=== PATIENT | male | born 1975 | race Hispanic/Latino ===

== ENCOUNTER 2024-07-26 21:06 | Inpatient (IN) | payer MEDICARE, OTHER ==
[~2024-07-26] VITALS: Ht 180.3 cm; Wt 112.0 kg
[~2024-07-26 21:06] MED LIST: ALOG6.252 PO; ASPI-1197 PO; ATOR40TA69 PO; BENZ-226 PO; CANA300T PO; CLOP-31 PO; DOCU100P MC; FAMO20TA8 PO; GABA-529 PO; LISI20TA24 PO; METF100P3 MC; SENN8.6T32 PO; SITA1TAB6 PO
--- NOTE | 2024-07-26 23:03 | NUR ---
PATIENT PLACED IN PRIVATE ROOM FOR SCROTAL EXAM. NYLA LYONS AT BEDSIDE
[2024-07-26 23:13] LABS: BASOPHILS # (AUTO) 0.06 K/uL (0.00-0.20); BASOPHILS % (AUTO) 0.4 % (0.0-5.0); EOSINOPHILS # (AUTO) 0.09 K/uL (0.00-0.70); EOSINOPHILS % (AUTO) 0.5 % (0.0-8.0); HEMATOCRIT 32.2 % (42-54); IMMATURE GRANULOCYTE ABSOLUTE 0.11 K/uL (0-1); LYMPHOCYTES # (AUTO) 1.3 K/uL (1.0-4.8); LYMPHOCYTES % (AUTO) 7.9 % (21.0-51.0); MEAN CORPUSCULAR HGB CONC 32.9 g/dL (32.0-36.0); MONOCYTES # (AUTO) 0.9 K/uL (0.1-1.0); MONOCYTES % (AUTO) 5.5 % (3.0-13.0); NEUTROPHILS # (AUTO) 14.1 K/uL (1.8-7.7); PLATELET COUNT (AUTO) 663 K/uL (130-400); RED BLOOD CELL COUNT(AUTO) 4.41 MIL/uL (4.50-6.20); RED CELL DISTRIBUTION WIDTH 14.5 % (11.0-15.5); WHITE BLOOD COUNT (AUTO) 16.6 K/uL (4.8-10.8)
--- NOTE | 2024-07-26 23:22 | NUR ---
PATIENT ASKED WHAT MEDICATION HE HAS GOTTEN FOR PAIN IN THE PAST SINCE HE IS ALLERGIC TO MORPHINE, PATIENT REPLIED DILAUDID, WHEN ASKED WHAT REACTION HE GET TO THE MORPHINE HE REPLIED "IT MAKES MY HEAD ALL SPINNY", PATIENT ASKED IF HE GET A REACTION WITH DIALUDID AND HE SAID NO.
[2024-07-26] MEDS: ondanSETRON 4MG INJ IVP ONE (23:32)
[2024-07-26] MEDS: hydroMORPHone 1 MG INJ IVP ONE (23:32)
[2024-07-26 23:43] LABS: CREATININE 2.4 mg/dL (0.5-1.3); POTASSIUM 3.8 mmol/L (3.5-5.1)
[2024-07-27] VITALS (7 sets, daily range): BP systolic 112–133; BP diastolic 68–70; PULSE 88–102; RESP 18–19; TEMP 98.8–99.1; O2SAT 95–99
[2024-07-27] MEDS ORDERED: VANCOMYCIN PROTOCOL PER PHARMACY IV SCH
[2024-07-27] MEDS: ZOSYN 3.375GM +NS 50ML IV ONE (00:17)
[2024-07-27 00:19] LABS: ABG BASE EXCESS -8.9 mmol/L (-2.0-3.0); ABG HCO3 15.4 mmol/L (21.0-28.0); ABG OXYGEN SATURATION 95.6 % (94.0-98.0); ABG PCO2 30 mmHg (35-48); ABG PH 7.335 (7.350-7.450); DEVICE COMMENT RR RN; PO2, ARTERIAL BG 82.2 mmHg (83.0-108.0); VENT MODE, BG RA (ROOM AIR)
--- NOTE | 2024-07-27 00:24 | ERN ---
General Chief Complaint: Testicular Injury/Pain Stated Complaint: TESTICULAR PAIN Time Seen by MD: 21:09 Time Seen by Midlevel: 21:09 Source: patient History of Present Illness Initial Comments Patient is a 41-year-old morbidly obese male with a past medical history of type 2 diabetes, hyperlipidemia, coronary artery disease, and hypertension presenting to the emergency department with scrotal swelling and pain. Denies any other symptoms. Allergies: Coded Allergies: morphine (Unverified Allergy, Intermediate, HALLUCINATIONS, 02/13/23) Home Meds Reported Medications Metformin HCl (Metformin HCl) 100 % Powder, 500 GM MC BIDMEALS, APPL 02/01/23 Famotidine (Famotidine) 20 Mg Tablet, 20 MG PO BIDAC, TAB 02/01/23 Aspirin (Aspirin) 81 Mg Tab.chew, 81 MG PO AM, TAB.CHEW 02/01/23 Alogliptin Benzoate (Alogliptin) 6.25 Mg Tablet, 6.25 MG PO AM, TAB 02/01/23 Docusate Sodium (Docusate Sodium) 100 Gm Powder, 100 GM MC BID, APPL 02/01/23 Sennosides (Senna) 8.6 Mg Tablet, 8.6 MG PO QID, TAB 02/01/23 Benzonatate (Benzonatate) 100 Mg Capsule, 100 MG PO TID PRN for COUGH, CAP 02/01/23 Lisinopril (Lisinopril) 20 Mg Tablet, 20 MG PO AM, TAB 12/29/22 Clopidogrel Bisulfate (Plavix) 75 Mg Tablet, 75 MG PO DAILY, TAB 12/29/22 Sitagliptin Phos/Metformin HCl (Janumet 50-1,000 mg Tablet) 50 Mg-1,000 Mg Tablet, 1 EACH PO BID, TAB 12/29/22 Atorvastatin Calcium (LIPITOR) 40 Mg Tablet, 40 MG PO HS, TAB 12/29/22 Gabapentin (Gabapentin) 100 Mg Capsule, 100 MG PO BID, CAP 12/29/22 Canagliflozin (Invokana) 300 Mg Tablet, 300 MG PO DAILY, TAB 12/29/22 Past Medical History Past Medical History: Diabetes-Type II, High Cholesterol, Heart Disease, Hypertension Medical History Other: PAD, SORE ON FOOT, Past Surgical History: Cholecystectomy, Unknown Surgical History Other: STENTS HEART AND LEG. LBKA, AMPUTATION OF TOES ON RIGHT FOOT Social History Social History: Negative, Lives in Retirement ROS Dictation CONSTITUTIONAL: Negative except for HPI HEAD/FACE: Negative except for HPI EENT: Negative except for HPI RESPIRATORY: Negative except for HPI GASTROINTESTINAL/ABDOMINAL: Negative except for HPI GENITOURINARY: Negative except for HPI MUSCULOSKELETAL: Negative except for HPI INTEGUMENTARY: Negative except for HPI NEUROLOGICAL/PSYCH: Negative except for HPI HEMATOLOGIC/LYMPHATIC: Negative except for HPI All Systems Negative, Except as noted above. 13 point review of systems assessed and all negative except for above. Physical Exam Physical Exam Dictation Vital Signs reviewed General Appearance: Alert, oriented x 3, no acute distress, well developed, n ourished. Head and Face: non-traumatic. Eyes: PERRL, pink conjunctivas, eyelid no trauma, anterior chamber with arcus senilis. Ears: Pinnas intact and no signs of trauma or erythema ear canals clear and no discharge TM no erythema Nose: No discharge, no bleeding. Oropharynx: Mouth normal, tongue pink, pharynx clear,no erythema, tonsils no exudates, no abscesses noted, mucous membrane moist Neck: Supple, non-tender, no thyromegaly, no masses, no JVD, no bruits Breast:Deferred Chest:No tenderness, no crepitus, no paradoxical movement, no retractions Lungs:Clear, well-ventilated, symmetric, no rales, no wheezing, no rhonchi, no stridor, good breath sounds bilaterally Heart: Regular rate, regular rhythm, no murmur, no gallops Vascular: no peripheral edema, Abdomen: Soft, positive bowel sounds, nondistended, no guarding, nontender, no rebound, no masses no hepatomegaly, no splenomegaly, no Bell's sign, no hernias. Rectal: Deferred Genital: Scrotal examination performed with RN at bedside. There is cellulitis to bilateral scrotum area. Neurological: Normal speech, motor function intact, sensory function intact Musculoskeletal: Neck nontender, full range of motion, back nontender, full range of motion, Extremities: nontender, full range of motion Skin: Color pink, dry, no turgor, no rash, no lacerations, no abrasions, no contusions. Lymphatic: Deferred Results Laboratory and Microbiology Lab and Micro Result Laboratory Tests Test 07/26/24 23:02 07/26/24 23:19 07/27/24 00:18 White Blood Count 16.6 K/uL (4.8-10.8) H Red Blood Count 4.41 MIL/uL (4.50-6.20) L Hemoglobin 10.6 g/dL (14.0-18.0) L Hematocrit 32.2 % (42-54) L Mean Corpuscular Volume 73.0 fL (79-99) L Mean Corpuscular Hemoglobin 24.0 pg (27.0-33.0) L Mean Corpuscular Hemoglobin Concent 32.9 g/dL (32.0-36.0) Red Cell Distribution Width 14.5 % (11.0-15.5) Platelet Count 663 K/uL (130-400) H Mean Platelet Volume 9.5 fL (7.5-10.5) Immature Granulocyte % (Auto) 0.7 % (0-1) Neutrophils (%) (Auto) 85.0 % (40.0-77.0) H Lymphocytes (%) (Auto) 7.9 % (21.0-51.0) L Monocytes (%) (Auto) 5.5 % (3.0-13.0) Eosinophils (%) (Auto) 0.5 % (0.0-8.0) Basophils (%) (Auto) 0.4 % (0.0-5.0) Neutrophils # (Auto) 14.1 K/uL (1.8-7.7) H Lymphocytes # (Auto) 1.3 K/uL (1.0-4.8) Monocytes # (Auto) 0.9 K/uL (0.1-1.0) Eosinophils # (Auto) 0.09 K/uL (0.00-0.70) Basophils # (Auto) 0.06 K/uL (0.00-0.20) Absolute Immature Granulocyte (auto 0.11 K/uL (0-1) Nucleated Red Blood Cells 0.0 % (0.0-0.19) White Cell Morphology Comment See comments Red Blood Cell Morphology See comments Sodium Level 128 mmol/L (136-145) L Potassium Level 3.8 mmol/L (3.5-5.1) Chloride Level 96 mmol/L (101-111) L Carbon Dioxide Level 20 mmol/L (21-32) L Blood Urea Nitrogen 49 mg/dL (7-18) H Creatinine 2.4 mg/dL (0.5-1.3) H Glomerular Filtration Rate Calc 32 mL/min (>90) Random Glucose 395 mg/dL (70-105) H Lactic Acid Level 1.9 mmol/L (0.8-2.5) Total Calcium 8.9 mg/dL (8.5-10.1) Procalcitonin 0.50 ng/mL (0.05-0.5) Blood Gas Specimen Type Arterial Arterial Blood pH 7.335 (7.350-7.450) Arterial Blood Partial Pressure CO2 30 mmHg (35-48) L Arterial Blood Partial Pressure O2 82.2 mmHg (83.0-108.0) L Arterial Blood HCO3 15.4 mmol/L (21.0-28.0) L Arterial Blood Oxygen Saturation 95.6 % (94.0-98.0) Arterial Blood Base Excess -8.9 mmol/L (-2.0-3.0) L Blood Gas Temperature 37.0 CELSIUS (35.5-37.0) Blood Gas Vent Mode RA (ROOM AIR) FiO2 31.0 % Blood Gas Specimen Comment RR RN Labs Reviewed?: Yes MDM MDM: Differential diagnosis: Cellulitis, abscess, urinary tract infection, Rationale: Tests considered and ordered secondary to shared decision making include: Previous outside records reviewed: Old ER visits. Risk of complication and/or morbidity or mortality of patient management: None Medications-Per medication reconciliation Need for hospitalization: Patient does meet criteria for hospitalization. Need for emergency major/minor surgery: No There are no social concerns with this patient. Prescription drug management Prescriptions will include symptomatic care Patient's prior external medical records from other ER visits were reviewed by me as indicated. Prior testing and results from previous visits were reviewed. Prior tests were taken into account with medical decision making and resource utilization, independent historian/historians were used to obtain complete medical history. I independently interpreted the test that were performed, results were reviewed by me and considered findings on radiology if ordered. Medical management and examination interpretation discussions were had by me with other qualified healthcare professionals as indicated for the patient's care. ED Course Orders Procedure Category Date Status Time Urinalysis Profile LAB 07/26/24 Logged 21:09 Cbc With Differential LAB 07/26/24 Complete 22:44 Basic Metabolic Panel LAB 07/26/24 Complete 22:44 *Nursing CPOE 07/26/24 Transmitted Communication: 22:44 Lactic Acid LAB 07/26/24 Complete 23:06 Blood Cult RONY 07/26/24 In Process 23:06 Hydromorphone 1 Mg PHA 07/26/24 Complete Inj (Dilaudid 1mg Inj 23:30 Procalcitonin LAB 07/26/24 Complete 23:06 Ondansetron 4mg Inj PHA 07/26/24 Complete (Zofran 4mg Inj) 23:30 Vancomycin Protocol PHA 07/27/24 In Process (Vancomycin Protocol 00:00 Zosyn 3.375gm+Ns 50ml PHA 07/27/24 Complete (Zosyn 3.375gm+Ns 00:00 0.9%Nacl 1000ml (Ns PHA 07/27/24 In Process 1000ml) 00:30 Arterial Blood Gas RT 07/27/24 Transmitted 00:02 Insulin Regular, PHA 07/27/24 Complete Human 3ml (Humulin R 00:30 Vancomycin 2gm/500 Ml PHA 07/27/24 In Process Bag (Vancomycin 2g 01:00 Vancomycin 1.25 PHA 07/28/24 In Process Gm/250 Ml Bag 01:00 Vancomycin Trough LAB 07/30/24 Verified 00:01 Arterial Blood Gas LAB 07/27/24 Complete 00:18 Current Medications Medications (Trade) Dose Ordered Sig/Gaby Route PRN Reason Start Time Stop Time Status Last Admin Dose Admin Hydromorphone HCl (DiLAUDid 1MG INJ) 1 mg ONCE ONCE IVP 07/26/24 23:30 07/26/24 23:31 DC 07/26/24 23:32 Insulin Human Regular (humuLIN R 100 UNIT/ML 3ML) 5 unit ONCE ONCE IV 07/27/24 00:30 07/27/24 00:31 DC 07/27/24 01:00 Ondansetron HCl (zoFRAN 4MG INJ) 4 mg ONCE ONCE IVP 07/26/24 23:30 07/26/24 23:31 DC 07/26/24 23:32 Piperacillin Sod/ Tazobactam Sod (Zosyn 3.375gm+NS 50ml) 3.375 gm ONCE ONCE IV 07/27/24 00:00 07/27/24 00:04 DC 07/27/24 00:17 Sodium Chloride 2,259 ml @ 753 mls/hr ONCE ONCE IV 07/27/24 00:30 07/27/24 03:29 07/27/24 00:58 Vancomycin HCl 250 ml @ 125 mls/hr Q24H IV 07/28/24 01:00 08/07/24 00:59 Vancomycin HCl 500 ml @ 250 mls/hr ONCE ONCE IV 07/27/24 01:00 07/27/24 02:59 07/27/24 00:56 Vancomycin HCl (Vancomycin Protocol) 1 each AD IV 07/27/24 00:00 08/10/24 00:00 Vital Signs Date Time Temp Pulse Resp B/P (MAP) Pulse Ox O2 Delivery O2 Flow Rate FiO2 07/26/24 21:07 84 16 148/50 97 Room Air 0 DX & DISP Disposition: Inpatient Decision to Admit Date: Jul 27, 2024 Departure Impression: Primary Impression: Cellulitis of scrotum Additional Impression: GEOVANNI (acute kidney injury) Condition: Stable Referrals: TORITO DAVIS MD (PCP) I have reviewed the case, and I agree with, Diagnosis and Plan I performed the substantive portion of the visit. I have reviewed and personally made and approve the management plan that is documented in the note by myself or the MARLEY. I acknowledge for responsibility for the patient's management plan. NYLA MORALES Jul 27, 2024 00:24
[2024-07-27] MEDS: VANCOMYCIN 2GM/500 ML BAG 500 ML IV ONE (00:56)
[2024-07-27] MEDS: 0.9%NACL 1000ML 2,259 ML IV ONE (00:58)
[2024-07-27] MEDS: INSULIN humuLIN R 100 UNIT/ML 3ML IV ONE (01:00)
[2024-07-27] MEDS ORDERED: acetaMINOPHEN 325 MG TAB PO PRN (02:30)
[2024-07-27] MEDS ORDERED: ondanSETRON 4MG INJ IV PRN (02:30)
[2024-07-27] MEDS ORDERED: VANCOMYCIN 1G/250ML KIT 250 ML IV SCH (02:30)
--- NOTE | 2024-07-27 02:30 | HP ---
[facility] Date of Service: Jul 27, 2024 Time of Service: 02:30 PCP: Alexandro Connelly HISTORY OF PRESENT ILLNESS: This is a 49 year old male with right eye blindness and left eye blurry vision with past medical history of hyperlipidemia, diabetes, hypertension, GERD, peripheral arterial disease with left AKA and right leg stents x4 , morbid obesity and coronary artery disease with cardiac stent times 3 who presents to the ED via ambulance for complaints of testicular pain and swelling which start ed for about two weeks now.Pain is mostly on his right testicle. Patient reports he is unable to sit down due to severity of the pain. Patient states he has this similar problem in the past and had to be confined in the hospital as well.Patient states he had a consulted his PCP via Telehealth and was advised to come to the ED for evaluation. Patient denies history of kidney disease. Patient states he he is not aware of any kidney problem. Seen and examined patient ER awake alert and coherent. Patient continued to complain of pain on the testicular area. Patient states he had fever and headache yesterday but none today. Patient denies chest pain, cough, palpitation, shortness of breaths and abdominal pain . Latest vital signs heart rate 84, blood pressure 148/50 saturation 97% on room air there was no temperature reflected on no vital signs. Labs: WBC 16.6 with negative left shift of neutrophils 85, hemoglobin 10.6, hematocrit 32.2 platelet count 663. Sodium 128, potassium 3.8, chloride 96, CO2 20, BUN 49, creatinine 2.4, GFR 32, random glucose 395, lactic acid 1.9, procalcitonin 0.50. While in the ER patient received Dilaudid 1 mg IV, Zofran 4 mg IV, Zosyn IV 5 units insulin IV and vancomycin IV. We will admit patient for further medical management. REVIEW OF SYSTEMS CONSTITUTIONAL: Denies fevers, chills, or night sweats. No unintentional weight loss reported. NEUROLOGICAL: Denies headache, amaurosis fugax, motor weakness, sensory deficit, vertigo/spinning sensation, gait abnormalities, or tremors. 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 CARDIOVASCULAR: Denies any exertional angina, dyspnea on exertion, orthopnea, paroxysmal nocturnal dyspnea, palpitations, life-threatening arrhythmias, claudication. PULMONARY: Denies any shortness of breath, cough, phlegm/sputum, hemoptysis, pleuritic chest pain. SLEEP: Denies morning headaches, daytime somnolence or napping. Denies difficulty falling asleep, staying asleep, waking from sleep. Denies knowledge of snoring. GASTROINTESTINAL: Denies any type of dysphagia to either liquids or solids. Denies nausea, vomiting, pyrosis, early satiety, abdominal pain, diarrhea, constipation, or changes in stool consistency or caliber. Denies coffee-ground emesis, hematemesis, hematochezia, or melanotic stools. GENITOURINARY: Denies frequency, urgency, nocturia, hematuria or incontinence (Storage/Irritative symptoms.) Low urinary stream, straining to void, urinary intermittency or hesitancy, splitting of the voiding stream, terminal dribbling. ENDOCRINOLOGIC: Denies polyuria, polydipsia, polyphagia or heat/cold intolerances. HEMATOLOGIC: Denies thrombophilia/previous clots, or coagulopathy/bleeding disorders. ONCOLOGIC: Denies personal history of malignancy. DERMATOLOGIC: Denies rashes or pruritus. PSYCHIATRIC: Denies any suicidal or homicidal ideation. Denies hallucinations. 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 Patient denies alcohol tobacco and recreational drug use . Patient states he used to smoke cigarette for 17 years two packs per day and quit two years ago] FAMILY HISTORY: [ Hypertension, diabetes, Chronic obstructive pulmonary disease, cardiovascular disease and cancer ] Coded Allergies: morphine (Unverified Allergy, Intermediate, HALLUCINATIONS, 02/13/23) PHYSICAL EXAM GENERAL APPEARANCE: The patient is awake, alert, and oriented, in no acute cardiopulmonary distress. NEUROLOGICAL: Cranial nerves II-XII grossly intact. Motor is 5/5 in bilateral upper and lower extremities proximal to distal. No sensory deficits. HEENT: Face is symmetric. Pupils are equal and reactive. Extraocular movements are intact. NECK: Supple. No JVD. No thyromegaly. No submental, submandibular, pre- /postauricular, occipital or supraclavicular lymphadenopathy. CHEST: Normal chest expansion. No Telemetry. LUNGS: Absence of any rales, rhonchi or any wheezing. CARDIOVASCULAR: Regular. S1 and S2 normal. No appreciable rubs, murmurs or gallops. ABDOMEN: Soft, nontender, and nondistended. There is no rebound, voluntary guarding, or rigidity. : Deferred. No Thomas. EXTREMITIES: Non-edematous and not cyanotic. No clubbing. Good capillary refill. SKIN: Swollen testicles Vital Sign (Last 24 Hours) 07/26/24 21:07 Pulse 84 Resp 16 B/P (MAP) 148/50 Pulse Ox 97 O2 Delivery Room Air O2 Flow Rate 0 LABS: Laboratory: Test 07/27/24 00:18 07/26/24 23:19 07/26/24 23:02 Range/Units Blood Gas Specimen Type Arterial Arterial Blood pH 7.335 L 7.350-7.450 Arterial Blood Partial Pressure CO2 30 L 35-48 mmHg Arterial Blood Partial Pressure O2 82.2 L 83.0-108.0 mmHg Arterial Blood HCO3 15.4 L 21.0-28.0 mmol/L Arterial Blood Oxygen Saturation 95.6 94.0-98.0 % Arterial Blood Base Excess -8.9 L -2.0-3.0 mmol/L Blood Gas Temperature 37.0 35.5-37.0 CELSIUS Blood Gas Vent Mode RA ROOM AIR FiO2 31.0 % Blood Gas Specimen Comment RR RN Sodium Level 128 L 136-145 mmol/L Potassium Level 3.8 3.5-5.1 mmol/L Chloride Level 96 L 101-111 mmol/L Carbon Dioxide Level 20 L 21-32 mmol/L Blood Urea Nitrogen 49 H 7-18 mg/dL Creatinine 2.4 H 0.5-1.3 mg/dL Glomerular Filtration Rate Calc 32 >90 mL/min Random Glucose 395 H 70-105 mg/dL Lactic Acid Level 1.9 0.8-2.5 mmol/L Total Calcium 8.9 8.5-10.1 mg/dL Procalcitonin 0.50 0.05-0.5 ng/mL White Blood Count 16.6 H 4.8-10.8 K/uL Red Blood Count 4.41 L 4.50-6.20 MIL/uL Hemoglobin 10.6 L 14.0-18.0 g/dL Hematocrit 32.2 L 42-54 % Mean Corpuscular Volume 73.0 L 79-99 fL Mean Corpuscular Hemoglobin 24.0 L 27.0-33.0 pg Mean Corpuscular Hemoglobin Concent 32.9 32.0-36.0 g/dL Red Cell Distribution Width 14.5 11.0-15.5 % Platelet Count 663 H 130-400 K/uL Mean Platelet Volume 9.5 7.5-10.5 fL Immature Granulocyte % (Auto) 0.7 0-1 % Neutrophils (%) (Auto) 85.0 H 40.0-77.0 % Lymphocytes (%) (Auto) 7.9 L 21.0-51.0 % Monocytes (%) (Auto) 5.5 3.0-13.0 % Eosinophils (%) (Auto) 0.5 0.0-8.0 % Basophils (%) (Auto) 0.4 0.0-5.0 % Neutrophils # (Auto) 14.1 H 1.8-7.7 K/uL Lymphocytes # (Auto) 1.3 1.0-4.8 K/uL Monocytes # (Auto) 0.9 0.1-1.0 K/uL Eosinophils # (Auto) 0.09 0.00-0.70 K/uL Basophils # (Auto) 0.06 0.00-0.20 K/uL Absolute Immature Granulocyte (auto 0.11 0-1 K/uL Nucleated Red Blood Cells 0.0 0.0-0.19 % White Cell Morphology Comment See comments Red Blood Cell Morphology See comments Current Medications Medications (Trade) Dose Ordered Sig/Gaby Route PRN Reason Start Time Stop Time Status Last Admin Dose Admin Vancomycin HCl 250 ml @ 125 mls/hr Q24H IV 07/28/24 01:00 08/07/24 00:59 Vancomycin HCl (Vancomycin Protocol) 1 each AD IV 07/27/24 00:00 08/10/24 00:00 DIAGNOSTICS / RADIOLOGY: [ ] ASSESSMENT: Right testicular cellulitis POA Acute kidney injury with CKD POA Hypertension POA Acute leukocytosis POA Anemia due to CKD POA Acute thrombocytosis POA Uncontrolled diabetes POA Hyperlipidemia POA Morbid Obesity POA Coronary artery disease POA Left AKA POA PLAN: We will admit patient in medical surgical We will start on consistent carb diet We will start with NS at 100 mL/hour x2 bags and re-evaluate We will start on vancomycin IV and Zosyn IV for broad-spectrum coverage We will start on Famotidine 20 mg p.o. q.48h for GI prophylaxis We will start on insulin sliding scale AC & HS with hypoglycemia protocol We will add prn medication for fever,pain,cough,nausea and vomiting We will reconcile home meds once medlist available We will obtain ultrasound of the scrotum We will seek Infectious Disease consultation We will seek Nephrology consultation We will request labs in am Further orders to follow depending on above results Case discussed with attending physician and came up with above treatment and plan of care. ADVANCED CARE PLANNING 1. Which of the following were discussed? Hospice Care - No Therapeutic options - Yes Advance Directives - No Other discussions - 2. Discussed with who? Patient 3. Voluntary nature of this service was explained to the patient? Yes 4. Amount of time spent - _22 5. Reviewed by Physician? (if this service was performed by NPP) Yes Patient seen and examined by me. Agree with note by TEST CARRIER SEE ADDITIONAL ORDERS PER CHART DISCUSSED WITH NURSING STAFF JACQUELYN GIBBS Jul 27, 2024 02:30
[2024-07-27] MEDS ORDERED: PoTASSium chloRIDE 10MEQ/100ML 100 ML IV PRN (04:00)
[2024-07-27] MEDS ORDERED: DEXTROSE 50%-WATER 50 ML DISP.SYRIN IV PRN (04:00)
[2024-07-27] MEDS ORDERED: GLUCAGON 1MG KIT 1 MG ML IM PRN (04:00)
[2024-07-27] MEDS ORDERED: PoTASSium chl 10% ELIXIR 20MEQ 20 MEQ/15 ML UDCUP PO PRN (04:00)
[2024-07-27 04:18] LABS: APPEARANCE,URINE TURBID (CLEAR); BILIRUBIN,URINE NEGATIVE (NEGATIVE); GLUCOSE, URINE (UA) 500 mg/dL (NEGATIVE); KETONES,URINE NEGATIVE (NEGATIVE); LEUKOCYTE ESTERASE ,URINE 500 Leu/uL (NEGATIVE); NITRATE,URINE NEGATIVE (NEGATIVE); OCCULT BLOOD,URINE LARGE (NEGATIVE); PROTEIN,URINE 300 mg/dL (NEGATIVE); UROBILINOGEN,URINE 0.2 mg/dL (0.2-1.0)
[2024-07-27 04:20] LABS: ADD UA MICROSCOPIC YES; COLOR,URINE YELLOW (YELLOW)
[2024-07-27] MEDS: FAMOTIDINE 20MG TAB PO SCH (04:20)
[2024-07-27] MEDS: HYDROcodone/APAP 5/325 1 TAB TABLET PO PRN (04:21)
--- NOTE | 2024-07-27 04:21 | NUR ---
JACQUELYN GIBBS LIMOUSINE RENTAL CLERK NOTIFIED OF VITAL SIGNS
[2024-07-27 04:35] LABS: RBC,URINE 26-50 /HPF (0-1); WBC CLUMP MOD /HPF (0-1); WBC,URINE TNTC /HPF (0-1); YEAST,URINE BUDDING MANY /HPF (None Seen); YEAST,URINE HYPHAE MOD /HPF (None Seen)
[2024-07-27] MEDS: 0.9%NACL 1000ML 1,000 ML IV SCH (04:35)
--- NOTE | 2024-07-27 04:35 | NUR ---
REPORT GIVEN TO EL
[2024-07-27] MEDS: ZOSYN 3.375GM+NS 50ML 50 ML IV SCH (05:22)
[2024-07-27 05:42] LABS: BASOPHILS # (AUTO) 0.05 K/uL (0.00-0.20); BASOPHILS % (AUTO) 0.3 % (0.0-5.0); EOSINOPHILS # (AUTO) 0.15 K/uL (0.00-0.70); HEMATOCRIT 28.9 % (42-54); IMMATURE GRANULOCYTE ABSOLUTE 0.12 K/uL (0-1); LYMPHOCYTES # (AUTO) 1.4 K/uL (1.0-4.8); LYMPHOCYTES % (AUTO) 9.1 % (21.0-51.0); MEAN CORPUSCULAR HEMOGLOBIN 23.8 pg (27.0-33.0); MEAN CORPUSCULAR HGB CONC 31.1 g/dL (32.0-36.0); MEAN CORPUSCULAR VOLUME 76.5 fL (79-99); MONOCYTES # (AUTO) 0.9 K/uL (0.1-1.0); MONOCYTES % (AUTO) 5.9 % (3.0-13.0); NEUTROPHILS # (AUTO) 12.9 K/uL (1.8-7.7); NEUTROPHILS % (AUTO) 82.9 % (40.0-77.0); PLATELET COUNT (AUTO) 411 K/uL (130-400); RED BLOOD CELL COUNT(AUTO) 3.78 MIL/uL (4.50-6.20); RED CELL DISTRIBUTION WIDTH 13.6 % (11.0-15.5); WHITE BLOOD COUNT (AUTO) 15.5 K/uL (4.8-10.8)
[2024-07-27 06:15] LABS: ALBUMIN 1.4 g/dL (3.5-5.0); BILIRUBIN,TOTAL 0.4 mg/dL (0.2-1.0); CREATININE 2.3 mg/dL (0.5-1.3); MAGNESIUM 1.6 mg/dL (1.80-2.40); POTASSIUM 4.3 mmol/L (3.5-5.1)
[2024-07-27] MEDS: INSULIN humuLIN R 100 UNIT/ML 3ML SQ SCH (06:49)
[2024-07-27] MEDS: MAGNESIUM 2GM PREMIX 50ML 50 ML IV PRN (07:59)
[2024-07-27] MEDS: acetaMINOPHEN 325 MG TAB PO PRN (08:00)
--- NOTE | 2024-07-27 09:06 | HMCIMG ---
US SCROTUM & CONTENTS HISTORY: Testicular pain COMPARISON: None TECHNIQUE: Duplex scrotal ultrasound study was performed. FINDINGS: The right testes measures 3.6 x 1.4 x 2.7 cm. The left testes measures 3.5 x 1.6 x 2 cm. No evidence of intratesticular mass or abnormal calcification is seen. Normal flow is demonstrated in the left testes and left epididymis. There is left epididymal cyst measuring 3 mm. Hypoechoic focus is seen in the epididymal head with adjacent vascularity measuring 4.3 x 1.9 x 3.8 cm at the inferior aspect of the left testes. Slight increased flow is seen of the right testes and right epididymis suspicious for right epididymal orchitis. No hydroceles or varicocele is seen. IMPRESSION: 1. Findings may be related to mild right epididymal orchitis.
[2024-07-27] MEDS ORDERED: MAGNESIUM 2GM PREMIX 50ML 50 ML IV SCH (10:00)
--- NOTE | 2024-07-27 10:15 | PN ---
[facility] PROGRESS NOTE Date of Service: Jul 27, 2024 Time of Service: 10:14 SUBJECTIVE: [ ] This is a 49-year-old that was admitted early this morning with chief complaints of testicular cellulitis. Patient is fully awake alert oriented x3 patient has a Thomas catheter secondary to urinary retention were being urology started patient on Flomax. Patient has no history of urinary retention. GEOVANNI on this admission finance lead following. Patient has a history of nephrotic syndrome we will discontinue vancomycin and Zosyn. REVIEW OF SYSTEMS CONSTITUTIONAL: Denies fevers, chills, or night sweats. No unintentional weight loss reported. NEUROLOGICAL: Denies headache, amaurosis fugax, motor weakness, sensory deficit, vertigo/spinning sensation, gait abnormalities, or tremors. 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 CARDIOVASCULAR: Denies any exertional angina, dyspnea on exertion, orthopnea, paroxysmal nocturnal dyspnea, palpitations, life-threatening arrhythmias, claudication. PULMONARY: Denies any shortness of breath, cough, phlegm/sputum, hemoptysis, pleuritic chest pain. SLEEP: Denies morning headaches, daytime somnolence or napping. Denies difficulty falling asleep, staying asleep, waking from sleep. Denies knowledge of snoring. GASTROINTESTINAL: Denies any type of dysphagia to either liquids or solids. Denies nausea, vomiting, pyrosis, early satiety, abdominal pain, diarrhea, constipation, or changes in stool consistency or caliber. Denies coffee-ground emesis, hematemesis, hematochezia, or melanotic stools. GENITOURINARY: Denies frequency, urgency, nocturia, hematuria or incontinence (Storage/Irritative symptoms.) Low urinary stream, straining to void, urinary intermittency or hesitancy, splitting of the voiding stream, terminal dribbling. ENDOCRINOLOGIC: Denies polyuria, polydipsia, polyphagia or heat/cold intolerances. HEMATOLOGIC: Denies thrombophilia/previous clots, or coagulopathy/bleeding disorders. ONCOLOGIC: Denies personal history of malignancy. DERMATOLOGIC: Denies rashes or pruritus. PSYCHIATRIC: Denies any suicidal or homicidal ideation. Denies hallucinations. PHYSICAL EXAM GENERAL APPEARANCE: The patient is awake, alert, and oriented, in no acute cardiopulmonary distress. NEUROLOGICAL: Cranial nerves II-XII grossly intact. Motor is 5/5 in bilateral upper and lower extremities proximal to distal. No sensory deficits. HEENT: Face is symmetric. Pupils are equal and reactive. Extraocular movements are intact. NECK: Supple. No JVD. No thyromegaly. No submental, submandibular, pre- /postauricular, occipital or supraclavicular lymphadenopathy. CHEST: Normal chest expansion. No Telemetry. LUNGS: Absence of any rales, rhonchi or any wheezing. CARDIOVASCULAR: Regular. S1 and S2 normal. No appreciable rubs, murmurs or gallops. ABDOMEN: Soft, nontender, and nondistended. There is no rebound, voluntary guarding, or rigidity. : Deferred. No Thomas. EXTREMITIES: Non-edematous and not cyanotic. No clubbing. Good capillary refill. SKIN: Swollen testicles Vital Signs (last 8hr) Date Time Temp Pulse Resp B/P (MAP) Pulse Ox O2 Delivery O2 Flow Rate FiO2 07/27/24 07:59 99 Room Air* 0 21 07/27/24 07:47 98.8 102 19 118/70 94 Room Air 07/27/24 05:30 97 Room Air* 0 21 07/27/24 03:59 98.8 116 18 115/77 97 Room Air* 0 21 LABS: Laboratory: Test 07/27/24 07:50 07/27/24 05:42 07/27/24 05:27 07/27/24 03:50 Range/Units Erythrocyte Sedimentation Rate 146 H 0-15 MM/HR Whole Blood Glucose 212 H 70-110 MG/DL White Blood Count 15.5 H 4.8-10.8 K/uL Red Blood Count 3.78 L 4.50-6.20 MIL/uL Hemoglobin 9.0 L 14.0-18.0 g/dL Hematocrit 28.9 L 42-54 % Mean Corpuscular Volume 76.5 L 79-99 fL Mean Corpuscular Hemoglobin 23.8 L 27.0-33.0 pg Mean Corpuscular Hemoglobin Concent 31.1 L 32.0-36.0 g/dL Red Cell Distribution Width 13.6 11.0-15.5 % Platelet Count 411 #H 130-400 K/uL Mean Platelet Volume 10.5 7.5-10.5 fL Immature Granulocyte % (Auto) 0.8 0-1 % Neutrophils (%) (Auto) 82.9 H 40.0-77.0 % Lymphocytes (%) (Auto) 9.1 L 21.0-51.0 % Monocytes (%) (Auto) 5.9 3.0-13.0 % Eosinophils (%) (Auto) 1.0 0.0-8.0 % Basophils (%) (Auto) 0.3 0.0-5.0 % Neutrophils # (Auto) 12.9 H 1.8-7.7 K/uL Lymphocytes # (Auto) 1.4 1.0-4.8 K/uL Monocytes # (Auto) 0.9 0.1-1.0 K/uL Eosinophils # (Auto) 0.15 0.00-0.70 K/uL Basophils # (Auto) 0.05 0.00-0.20 K/uL Absolute Immature Granulocyte (auto 0.12 0-1 K/uL Nucleated Red Blood Cells 0.0 0.0-0.19 % Sodium Level 135 L 136-145 mmol/L Potassium Level 4.3 3.5-5.1 mmol/L Chloride Level 104 101-111 mmol/L Carbon Dioxide Level 19 L 21-32 mmol/L Blood Urea Nitrogen 45 H 7-18 mg/dL Creatinine 2.3 H 0.5-1.3 mg/dL Glomerular Filtration Rate Calc 34 >90 mL/min Random Glucose 227 H 70-105 mg/dL Total Calcium 8.6 8.5-10.1 mg/dL Magnesium Level 1.60 L 1.80-2.40 mg/dL Total Bilirubin 0.4 0.2-1.0 mg/dL Aspartate Amino Transf (AST/SGOT) 21 10-37 U/L Alanine Aminotransferase (ALT/SGPT) 11 L 12-78 U/L Alkaline Phosphatase 209 H 50-136 U/L Total Protein 8.0 6.0-8.3 g/dL Albumin 1.4 L 3.5-5.0 g/dL Urine Color YELLOW YELLOW Urine Appearance TURBID CLEAR Urine pH 6.0 5.0-8.0 Urine Specific [place] 1.013 1.001-1.031 Urine Protein 300 H NEGATIVE mg/dL Urine Glucose (UA) 500 H NEGATIVE mg/dL Urine Ketones NEGATIVE NEGATIVE mg/dL Urine Occult Blood LARGE H NEGATIVE Urine Nitrate NEGATIVE NEGATIVE Urine Bilirubin NEGATIVE NEGATIVE mg/dL Urine Urobilinogen 0.2 0.2-1.0 mg/dL Urine Leukocyte Esterase 500 H NEGATIVE [place]/uL Urine RBC 26-50 H 0-1 /HPF Urine WBC TNTC H 0-1 /HPF Urine WBC Clumps (Auto) MOD 0-1 /HPF Urine Bacteria None None Seen /HPF Urine Yeast MANY None Seen /HPF Urine Yeast with Hyphae MOD None Seen /HPF Test 07/27/24 00:18 07/26/24 23:19 07/26/24 23:02 Range/Units Blood Gas Specimen Type Arterial Arterial Blood pH 7.335 L 7.350-7.450 Arterial Blood Partial Pressure CO2 30 L 35-48 mmHg Arterial Blood Partial Pressure O2 82.2 L 83.0-108.0 mmHg Arterial Blood HCO3 15.4 L 21.0-28.0 mmol/L Arterial Blood Oxygen Saturation 95.6 94.0-98.0 % Arterial Blood Base Excess -8.9 L -2.0-3.0 mmol/L Blood Gas Temperature 37.0 35.5-37.0 CELSIUS Blood Gas Vent Mode RA ROOM AIR FiO2 31.0 % Blood Gas Specimen Comment RR RN Lactic Acid Level 1.9 0.8-2.5 mmol/L Procalcitonin 0.50 0.05-0.5 ng/mL White Cell Morphology Comment See comments Red Blood Cell Morphology See comments Current Medications Medications (Trade) Dose Ordered Sig/Gaby Route PRN Reason Start Time Stop Time Status Last Admin Dose Admin Acetaminophen (TYLenol 325MG TAB) 650 mg Q4H PRN PO MILD PAIN (1-3) 07/27/24 02:30 08/26/24 02:29 Acetaminophen (TYLenol 325MG TAB) 650 mg Q6H PRN PO TEMPERATURE GREATER THAN 101.5 07/27/24 02:30 08/26/24 02:29 07/27/24 08:00 650 MG Acetaminophen/ Hydrocodone Bitart (NORco 5/325MG) 1 tab Q6H PRN PO MODERATE PAIN (4-6) 07/27/24 02:30 08/01/24 02:29 07/27/24 04:21 1 TAB Dextrose (D50w) 50 ml AD PRN IV HYPOGLYCEMIA PROTOCOL 07/27/24 04:00 08/26/24 03:59 Famotidine (Pepcid 20mg Tab) 20 mg Q48H PO 07/27/24 02:30 08/26/24 02:29 07/27/24 04:20 20 MG Glucagon (Glucagon 1mg Kit) 1 mg AD PRN IM HYPOGLYCEMIA PROTOCOL 07/27/24 04:00 08/26/24 03:59 Insulin Human Regular (humuLIN R 100 UNIT/ML 3ML) INSULIN SLIDING SCAL... ACHS SQ 07/27/24 07:30 08/26/24 07:29 07/27/24 06:49 3 UNIT Magnesium Sulfate 50 ml @ 0 mls/hr PROTOCOL PRN IV OTHER [SEE ORDER COMMENTS] 07/27/24 04:00 08/26/24 03:59 07/27/24 07:59 12.5 MLS/HR Ondansetron HCl (zoFRAN 4MG INJ) 4 mg Q6H PRN IV NAUSEA/VOMITING 07/27/24 02:30 08/26/24 02:29 Piperacillin Sod/ Tazobactam Sod 50 ml @ 12.5 mls/hr Q8H IV 07/27/24 05:00 08/06/24 04:59 07/27/24 05:22 12.5 MLS/HR Potassium Chloride 100 ml @ 100 mls/hr AD PRN IV POTASSIUM PROTOCOL 07/27/24 04:00 08/26/24 03:59 Potassium Chloride (K-Dur/Klor-Con 20meq) 10 meq AD PRN PO POTASSIUM PROTOCOL 07/27/24 04:00 08/26/24 03:59 Potassium Chloride (KCl 10% Elixir 20meq/15ml) 10 meq AD PRN PO POTASSIUM PROTOCOL 07/27/24 04:00 08/26/24 03:59 Sodium Chloride 1,000 ml @ 100 mls/hr Q10H IV 07/27/24 03:30 08/26/24 03:29 07/27/24 04:35 100 MLS/HR Vancomycin HCl 250 ml @ 125 mls/hr ONCE IV 07/27/24 02:30 07/27/24 02:32 DC Vancomycin HCl 250 ml @ 125 mls/hr Q24H IV 07/28/24 01:00 08/07/24 00:59 Vancomycin HCl (Vancomycin Protocol) 1 each AD IV 07/27/24 00:00 08/10/24 00:00 DIAGNOSTICS / RADIOLOGY: [ ] ASSESSMENT: Right testicular cellulitis POA Urinary retention requiring Thomas catheter POA Acute kidney injury with CKD POA Hypertension POA Acute leukocytosis POA Microcytic hypochromic anemia POA Acute thrombocytosis POA Uncontrolled diabetes POA Hyperlipidemia POA Morbid Obesity POA Coronary artery disease POA Severe Protein calorie Malnutrition PAD with hx of AKA to the left side Obesity Hypoventilation Syndrome Metabolic acidosis electrolytes derangement: hypomagnesemia History Nephrotic syndrome PLAN: Admit: Medical floor condition: Guarded Status: Full IVF: NS at 75 mL/hour Consultants finance lead's, Infectious Disease, Antibiotics: Rocephin1 g doxycycline 100 mg IV b.i.d.. Labs cbc, cmp, mag+ We will monitor inflammatory markers Avoid NSAIDs strict I&O we will monitor renal function we will follow nephrol ogist's recommendations Thomas care Replace electrolytes as needed as per protocol to keep potassium above 4.0 magnesium 2.0. Home medications reviewed reconciled Bicarb po t.i.d. bowel regiment: lactulose 20 gm PO BID PRN constipation Pain management: Supportive measures: DVT ppx, GI ppx all questions answered time spent: > 35 min Supervising MD: Dr. Ivan c/d This document was generated in part using voice recognition software, occasional wrong word or sound alike substitutions may have occurred due to the inherent limitations of voice recognition software. Read the chart carefully and recognize using context, where the substitutions have occurred. Although every effort was made to edit the content, thermodynamics teacher and typing errors may occur ATTESTATION BY PHYSICIAN I have seen and examined the patient. I reviewed the documentation, medical decision making, and treatment plan as noted by the mid-level provider above. I agree with the findings and plan of care. JANET IVAN MD, ELIZABETH NP Jul 27, 2024 10:15
[2024-07-27] MEDS ORDERED: CLOT15CR23 TP (10:45)
[2024-07-27] MEDS ORDERED: DAPA5TAB PO (10:57)
[2024-07-27] MEDS ORDERED: FERS325 PO (10:57)
--- NOTE | 2024-07-27 11:15 | NUR ---
NEPHROLOGY CONSULT SPOKE WITH DR. MANDEL'S OFFICE REGARDING NEW CONSULT FOR PATIENT. PER OFFICE, DR. MANDEL PAGED WITH REFERRAL INFORMATION. PENDING VISIT FROM DR. MANDEL.
--- NOTE | 2024-07-27 11:16 | NUR ---
INFECTIOUS DISEASE CONSULT SPOKE WITH DR. SUMMERS REGARDING NEW CONSULT FOR PATIENT. PER DR. SUMMERS, ENSURE THAT PATIENT IS PRESENT ON CENSUS AND HE WILL ARRIVE LATER IN THE DAY. PENDING VISIT FROM DR. SUMMERS.
[2024-07-27] MEDS ORDERED: SODIUM BICARBONATE 650 MG TAB PO PRN (12:00)
[2024-07-27] MEDS: SODIUM BICARB 50MEQ 50ML VIAL IV ONE (12:14)
[2024-07-27] MEDS: tamSULOsin HCL 0.4 MG CAP.ER.24H PO ONE (14:24)
[2024-07-27] MEDS: cefTRIAXone 1G VIAL IVPB SCH (14:25)
--- NOTE | 2024-07-27 15:05 | CONS ---
NEPHROLOGY CONSULTATION NOTE Date/Time Patient Seen: Jul 27, 2024 1400 Reason for Consultation: HISTORY OF PRESENT ILLNESS: This is a 49-year-old male with a past medical history of diabetes mellitus type 2, hypertension, peripheral arterial disease with left AKA, coronary artery disease, hyperlipidemia, GERD, PAD, and obesity Patient presented to the emergency room for testicular pain and swelling Thomas in place due to urinary retention, pending Urology recommendations. Blood and urine cultures have been collected, pending results Continues on broad-spectrum antibiotics. Were consulted for renal failure. Renal function remains elevated Electrolytes are stable. UA positive for proteinuria. Hemoglobin noted Patient was seen in the medical floor, in no acute distress Family at the bedside Prognosis remains guarded REVIEW OF SYSTEMS: GENERAL: Positive for testicular pain and swelling NEUROLOGIC: Negative for any blurry vision, blind spots, double vision, facial asymmetry, dysphagia, dysarthria, hemiparesis, hemisensory deficits, vertigo, ataxia. HEENT: Negative for any head trauma, neck trauma, neck stiffness, photophobia, phonophobia, sinusitis, rhinitis. CARDIAC: Negative for any chest pain, dyspnea on exertion, paroxysmal nocturnal dyspnea, peripheral edema. PULMONARY: Negative for any shortness of breath, wheezing, COPD, or TB exposure. GASTROINTESTINAL: Negative for any abdominal pain, nausea, vomiting, bright red blood per rectum, melena. GENITOURINARY: Negative for any dysuria, hematuria, incontinence. INTEGUMENTARY: Negative for any rashes, cuts, insect bites. RHEUMATOLOGIC: Negative for any joint pains, photosensitive rashes, history of vasculitis or kidney problems. HEMATOLOGIC: Negative for any abnormal bruising, frequent infections or bleeding. PAST MEDICAL HISTORY: Diabetes mellitus type 2 Hypertension Hyperlipidemia GERD PAD Coronary artery disease Obesity PAST SURGICAL HISTORY: Left AKA PAST SOCIAL HISTORY: Former smoker Denies any use of alcohol or illicit drugs FAMILY HISTORY: Noncontributory PHYSICAL EXAM: GENERAL: Alert and oriented x 3. No acute distress. Well-nourished. EYES: EOMI. Anicteric. HENT: Moist mucous membranes. No scleral icterus. No cervical lymphadenopathy. LUNGS: Clear to auscultation bilaterally. No accessory muscle use. CARDIOVASCULAR: Regular rate and rhythm. No murmur. No JVD. ABDOMEN: Soft, non-tender and non-distended. No palpable masses. EXTREMITIES: 2+ edema. Non-tender. SKIN: No rashes or lesions. Warm. NEUROLOGIC: No focal neurological deficits. CN II-XII grossly intact, but not individually tested. PSYCHIATRIC: Cooperative. Appropriate mood and affect. MEDICATIONS: [ ] Current Medications Medications (Trade) Dose Ordered Sig/Gaby Route PRN Reason Start Time Stop Time Status Last Admin Dose Admin Acetaminophen (TYLenol 325MG TAB) 650 mg Q4H PRN PO MILD PAIN (1-3) 07/27/24 02:30 08/26/24 02:29 Acetaminophen (TYLenol 325MG TAB) 650 mg Q6H PRN PO TEMPERATURE GREATER THAN 101.5 07/27/24 02:30 08/26/24 02:29 07/27/24 08:00 650 MG Acetaminophen/ Hydrocodone Bitart (NORco 5/325MG) 1 tab Q6H PRN PO MODERATE PAIN (4-6) 07/27/24 02:30 08/01/24 02:29 07/27/24 04:21 1 TAB Ceftriaxone Sodium (ROCEphine 1G INJ) 1 gm Q24H IVPB 07/27/24 14:30 08/06/24 14:29 07/27/24 14:25 1 GM Dextrose (D50w) 50 ml AD PRN IV HYPOGLYCEMIA PROTOCOL 07/27/24 04:00 08/26/24 03:59 Doxycycline Hyclate 250 ml @ 125 mls/hr Q12H IV 07/27/24 16:00 08/06/24 15:59 Famotidine (Pepcid 20mg Tab) 20 mg Q48H PO 07/27/24 02:30 08/26/24 02:29 07/27/24 04:20 20 MG Glucagon (Glucagon 1mg Kit) 1 mg AD PRN IM HYPOGLYCEMIA PROTOCOL 07/27/24 04:00 08/26/24 03:59 Hydromorphone HCl (DiLAUDid 0.5MG INJ) 0.5 mg Q3H3 PRN IVP SEVERE PAIN (7-10) 07/27/24 13:30 08/01/24 13:29 Insulin Human Regular (humuLIN R 100 UNIT/ML 3ML) INSULIN SLIDING SCAL... ACHS SQ 07/27/24 07:30 08/26/24 07:29 07/27/24 12:23 2 UNIT Magnesium Sulfate 50 ml @ 0 mls/hr PROTOCOL IV 07/27/24 10:00 07/27/24 13:42 DC Magnesium Sulfate 50 ml @ 0 mls/hr PROTOCOL IV 07/27/24 14:00 08/26/24 13:59 Magnesium Sulfate 50 ml @ 0 mls/hr PROTOCOL PRN IV OTHER [SEE ORDER COMMENTS] 07/27/24 04:00 07/27/24 13:42 DC 07/27/24 07:59 12.5 MLS/HR Ondansetron HCl (zoFRAN 4MG INJ) 4 mg Q6H PRN IV NAUSEA/VOMITING 07/27/24 02:30 08/26/24 02:29 Piperacillin Sod/ Tazobactam Sod 50 ml @ 12.5 mls/hr Q8H IV 07/27/24 05:00 07/27/24 14:15 DC 07/27/24 12:14 12.5 MLS/HR Potassium Chloride 100 ml @ 100 mls/hr AD PRN IV POTASSIUM PROTOCOL 07/27/24 04:00 08/26/24 03:59 Potassium Chloride (K-Dur/Klor-Con 20meq) 10 meq AD PRN PO POTASSIUM PROTOCOL 07/27/24 04:00 08/26/24 03:59 Potassium Chloride (KCl 10% Elixir 20meq/15ml) 10 meq AD PRN PO POTASSIUM PROTOCOL 07/27/24 04:00 08/26/24 03:59 Sodium Bicarbonate (Sodium Bicarbonate) 650 mg TID PRN PO INDIGESTION 07/27/24 12:00 08/26/24 11:59 Sodium Chloride 1,000 ml @ 100 mls/hr Q10H IV 07/27/24 03:30 08/26/24 03:29 07/27/24 04:35 100 MLS/HR Tamsulosin HCl (FloMAX) 0.4 mg DAILY PO 07/28/24 09:00 08/27/24 08:59 Vancomycin HCl 250 ml @ 125 mls/hr ONCE IV 07/27/24 02:30 07/27/24 02:32 DC Vancomycin HCl 250 ml @ 125 mls/hr Q24H IV 07/28/24 01:00 07/27/24 14:15 DC Vancomycin HCl (Vancomycin Protocol) 1 each AD IV 07/27/24 00:00 07/27/24 14:21 DC Vitamin B Complex/ Vit C/Folic Acid (Nephrovite Tablet) 1 cap DAILY PO 07/28/24 09:00 08/27/24 08:59 Vital Signs (last 8hr) Date Time Temp Pulse Resp B/P (MAP) Pulse Ox O2 Delivery O2 Flow Rate FiO2 07/27/24 11:16 98.8 88 19 112/68 98 Room Air 07/27/24 07:59 99 Room Air* 0 21 07/27/24 07:47 98.8 102 19 118/70 94 Room Air REASON: testicular pain and swelling ORDERING PHYSICIAN: JACQUELYN GIBBS [employer] TEACHER PROCEDURE: SCROTUM - US SCROTUM & CONTENTS US SCROTUM & CONTENTS HISTORY: Testicular pain COMPARISON: None TECHNIQUE: Duplex scrotal ultrasound study was performed. FINDINGS: The right testes measures 3.6 x 1.4 x 2.7 cm. The left testes measures 3.5 x 1.6 x 2 cm. No evidence of intratesticular mass or abnormal calcification is seen. Normal flow is demonstrated in the left testes and left epididymis. There is left epididymal cyst measuring 3 mm. Hypoechoic focus is seen in the epididymal head with adjacent vascularity measuring 4.3 x 1.9 x 3.8 cm at the inferior aspect of the left testes. Slight increased flow is seen of the right testes and right epididymis suspicious for right epididymal orchitis. No hydroceles or varicocele is seen. IMPRESSION: 1. Findings may be related to mild right epididymal orchitis. DICTATED BY: BRIAN LUBIN MD DATE: 07/27/24901 LABORATORY: [ ] Hematology Labs: Test 07/27/24 07:50 07/27/24 05:27 07/26/24 23:02 Range/Units Erythrocyte Sedimentation Rate 146 H 0-15 MM/HR White Blood Count 15.5 H 4.8-10.8 K/uL Red Blood Count 3.78 L 4.50-6.20 MIL/uL Hemoglobin 9.0 L 14.0-18.0 g/dL Hematocrit 28.9 L 42-54 % Mean Corpuscular Volume 76.5 L 79-99 fL Mean Corpuscular Hemoglobin 23.8 L 27.0-33.0 pg Mean Corpuscular Hemoglobin Concent 31.1 L 32.0-36.0 g/dL Red Cell Distribution Width 13.6 11.0-15.5 % Platelet Count 411 #H 130-400 K/uL Mean Platelet Volume 10.5 7.5-10.5 fL Immature Granulocyte % (Auto) 0.8 0-1 % Neutrophils (%) (Auto) 82.9 H 40.0-77.0 % Lymphocytes (%) (Auto) 9.1 L 21.0-51.0 % Monocytes (%) (Auto) 5.9 3.0-13.0 % Eosinophils (%) (Auto) 1.0 0.0-8.0 % Basophils (%) (Auto) 0.3 0.0-5.0 % Neutrophils # (Auto) 12.9 H 1.8-7.7 K/uL Lymphocytes # (Auto) 1.4 1.0-4.8 K/uL Monocytes # (Auto) 0.9 0.1-1.0 K/uL Eosinophils # (Auto) 0.15 0.00-0.70 K/uL Basophils # (Auto) 0.05 0.00-0.20 K/uL Absolute Immature Granulocyte (auto 0.12 0-1 K/uL Nucleated Red Blood Cells 0.0 0.0-0.19 % White Cell Morphology Comment See comments Red Blood Cell Morphology See comments Chemistry Labs: Test 07/27/24 10:56 07/27/24 05:27 07/26/24 23:19 Range/Units Whole Blood Glucose 197 H 70-110 MG/DL Sodium Level 135 L 136-145 mmol/L Potassium Level 4.3 3.5-5.1 mmol/L Chloride Level 104 101-111 mmol/L Carbon Dioxide Level 19 L 21-32 mmol/L Blood Urea Nitrogen 45 H 7-18 mg/dL Creatinine 2.3 H 0.5-1.3 mg/dL Glomerular Filtration Rate Calc 34 >90 mL/min Random Glucose 227 H 70-105 mg/dL Total Calcium 8.6 8.5-10.1 mg/dL Magnesium Level 1.60 L 1.80-2.40 mg/dL Total Bilirubin 0.4 0.2-1.0 mg/dL Aspartate Amino Transf (AST/SGOT) 21 10-37 U/L Alanine Aminotransferase (ALT/SGPT) 11 L 12-78 U/L Alkaline Phosphatase 209 H 50-136 U/L Total Protein 8.0 6.0-8.3 g/dL Albumin 1.4 L 3.5-5.0 g/dL Lactic Acid Level 1.9 0.8-2.5 mmol/L Procalcitonin 0.50 0.05-0.5 ng/mL ASSESSMENT: Acute on chronic renal failure Nephrotic syndrome Anemia Metabolic acidosis Right testicular clear cellulitis Urinary retention S/p Thomas catheter Electrolyte derangement Coronary artery disease Uncontrolled Diabetes mellitus type 2 Hyperlipidemia PAD S/p left AKA Severe protein calorie malnutrition Obesity PLAN: Labs, diagnostic, radiologic exams reviewed and interpreted by myself and supervising physician. We have reviewed external records in detail Obtain urine protein and creatinine Discontinue Vancomycin due to worsening renal function, use alternative antibiotic. Case discussed with Dr. Martinez Require close monitoring of renal function and electrolytes Order CBC, CMP, complete iron panel, ferritin and electrolytes in am Continue with antibiotics Renal diabetic diet BiPAP as necessary, for respiratory distress Monitor blood pressure adjust medication doses as needed Avoid hypotensive episodes May use Dilaudid 0.5 mg IV every 6 hours as needed for severe pain Monitor blood sugars Strict intake, output, and daily weight should be monitored Please renally adjust medications Avoid nephrotoxic and nonsteroidal drugs Avoid contrast if possible Will continue to monitor renal function, anemia, electrolytes Treatment plan discussed with patient Questions were answered We have discussed with the other team physicians in detail about the care plan We will continue to monitor the patient closely Thank you for allowing us to participate in the care of this patient ATTESTATION BY PHYSICIAN I have seen and examined the patient. I reviewed the documentation, medical decision making, and treatment plan as noted by the mid-level provider above. I agree with the findings and plan of care. KRUPA MANDEL MD, ELIZABETH FNP Jul 27, 2024 15:05 KRUPA MANDEL MD Jul 27, 2024 19:43
[2024-07-27] MEDS: DOXYCYCLINE 100MG+NS 250ML 250 ML IV SCH (16:18)
[2024-07-27] MEDS: hydroMORPHone 0.5 MG SYG (0.5MG/0.5ML) IVP PRN (16:19)
--- NOTE | 2024-07-27 16:47 | NUR ---
UROLOGY CONSULT SPOKE WITH DR. BLACKWELL'S OFFICE REGARDING NEW CONSULT FOR PATIENT. PROVIDED RELEVANT INFORMATION AND CALLBACK NUMBER. PENDING VISITATION FROM DR. BLACKWELL.
[2024-07-28] VITALS (8 sets, daily range): BP systolic 130–146; BP diastolic 68–84; PULSE 85–107; RESP 18–20; TEMP 98.1–100.2; O2SAT 94–95
[2024-07-28] MEDS ORDERED: VANCOMYCIN 1.25 GM/250 ML BAG 250 ML IV SCH (01:00)
[2024-07-28 01:01] LABS: CREATININE,URINE RANDOM 29.4 mg/dL (30-135)
[2024-07-28 01:20] LABS: PROTEIN,URINE RANDOM 285.5 mg/dL (0-11.9)
[2024-07-28 05:26] LABS: BASOPHILS # (AUTO) 0.05 K/uL (0.00-0.20); BASOPHILS % (AUTO) 0.3 % (0.0-5.0); EOSINOPHILS % (AUTO) 1.2 % (0.0-8.0); IMMATURE GRANULOCYTE ABSOLUTE 0.12 K/uL (0-1); LYMPHOCYTES # (AUTO) 2.4 K/uL (1.0-4.8); LYMPHOCYTES % (AUTO) 14.5 % (21.0-51.0); MEAN CORPUSCULAR HEMOGLOBIN 24.1 pg (27.0-33.0); MEAN CORPUSCULAR HGB CONC 31.9 g/dL (32.0-36.0); MEAN CORPUSCULAR VOLUME 75.6 fL (79-99); MONOCYTES # (AUTO) 1.3 K/uL (0.1-1.0); MONOCYTES % (AUTO) 7.5 % (3.0-13.0); NEUTROPHILS # (AUTO) 12.8 K/uL (1.8-7.7); NEUTROPHILS % (AUTO) 75.8 % (40.0-77.0); PLATELET COUNT (AUTO) 507 K/uL (130-400); RED BLOOD CELL COUNT(AUTO) 3.57 MIL/uL (4.50-6.20); RED CELL DISTRIBUTION WIDTH 13.9 % (11.0-15.5); WHITE BLOOD COUNT (AUTO) 16.9 K/uL (4.8-10.8)
[2024-07-28 05:51] LABS: ALBUMIN 1.2 g/dL (3.5-5.0); BILIRUBIN,TOTAL 0.2 mg/dL (0.2-1.0); CREATININE 2.2 mg/dL (0.5-1.3); MAGNESIUM 1.9 mg/dL (1.80-2.40); POTASSIUM 3.5 mmol/L (3.5-5.1)
[2024-07-28] MEDS: MAGNESIUM 2GM PREMIX 50ML 50 ML IV SCH (06:04)
[2024-07-28] MEDS: PoTASSium chloRIDE 20MEQ ER 20 MEQ ERTAB PO PRN (06:04)
[2024-07-28] MEDS: tamSULOsin HCL 0.4 MG CAP.ER.24H PO SCH (07:47)
[2024-07-28] MEDS: Vitamin B Complex/Vit C/Folic Acid PO SCH (07:47)
--- NOTE | 2024-07-28 09:17 | PN ---
[facility] PROGRESS NOTE Date of Service: Jul 28, 2024 Time of Service: 09:09 SUBJECTIVE: [ ] This is a 49-year-old that was admitted early this morning with chief complaints of testicular cellulitis. Patient is fully awake alert oriented x3 patient has a Thomas catheter secondary to urinary retention were being urology started patient on Flomax. Patient has no history of urinary retention. GEOVANNI on this admission lamp shade sewer following. Patient has a history of nephrotic syndrome we will discontinue vancomycin and Zosyn. 07/28/24 patient is seen patient has been having temperature T-max 100.9 and leukocytosis being followed by infectious disease. Patient is fully awake alert oriented x3 REVIEW OF SYSTEMS CONSTITUTIONAL: Denies fevers, chills, or night sweats. No unintentional weight loss reported. NEUROLOGICAL: Denies headache, amaurosis fugax, motor weakness, sensory deficit, vertigo/spinning sensation, gait abnormalities, or tremors. 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 CARDIOVASCULAR: Denies any exertional angina, dyspnea on exertion, orthopnea, paroxysmal nocturnal dyspnea, palpitations, life-threatening arrhythmias, claudication. PULMONARY: Denies any shortness of breath, cough, phlegm/sputum, hemoptysis, pleuritic chest pain. SLEEP: Denies morning headaches, daytime somnolence or napping. Denies difficulty falling asleep, staying asleep, waking from sleep. Denies knowledge of snoring. GASTROINTESTINAL: Denies any type of dysphagia to either liquids or solids. Denies nausea, vomiting, pyrosis, early satiety, abdominal pain, diarrhea, constipation, or changes in stool consistency or caliber. Denies coffee-ground emesis, hematemesis, hematochezia, or melanotic stools. GENITOURINARY: Denies frequency, urgency, nocturia, hematuria or incontinence (Storage/Irritative symptoms.) Low urinary stream, straining to void, urinary intermittency or hesitancy, splitting of the voiding stream, terminal dribbling. ENDOCRINOLOGIC: Denies polyuria, polydipsia, polyphagia or heat/cold intolerances. HEMATOLOGIC: Denies thrombophilia/previous clots, or coagulopathy/bleeding disorders. ONCOLOGIC: Denies personal history of malignancy. DERMATOLOGIC: Denies rashes or pruritus. PSYCHIATRIC: Denies any suicidal or homicidal ideation. Denies hallucinations. PHYSICAL EXAM GENERAL APPEARANCE: The patient is awake, alert, and oriented, in no acute cardiopulmonary distress. NEUROLOGICAL: Cranial nerves II-XII grossly intact. Motor is 5/5 in bilateral upper and lower extremities proximal to distal. No sensory deficits. HEENT: Face is symmetric. Pupils are equal and reactive. Extraocular movements are intact. NECK: Supple. No JVD. No thyromegaly. No submental, submandibular, pre- /postauricular, occipital or supraclavicular lymphadenopathy. CHEST: Normal chest expansion. No Telemetry. LUNGS: Absence of any rales, rhonchi or any wheezing. CARDIOVASCULAR: Regular. S1 and S2 normal. No appreciable rubs, murmurs or gallops. ABDOMEN: Soft, nontender, and nondistended. There is no rebound, voluntary guarding, or rigidity. : Deferred. No Thomas. EXTREMITIES: Non-edematous and not cyanotic. No clubbing. Good capillary refill. SKIN: Swollen testicles Vital Signs (last 8hr) Date Time Temp Pulse Resp B/P (MAP) Pulse Ox O2 Delivery O2 Flow Rate FiO2 07/28/24 04:00 100.0 93 18 131/68 97 Room Air LABS: Laboratory: Test 07/28/24 05:46 07/28/24 05:08 07/28/24 00:15 07/27/24 07:50 Range/Units Whole Blood Glucose 248 H 70-110 MG/DL White Blood Count 16.9 H 4.8-10.8 K/uL Red Blood Count 3.57 L 4.50-6.20 MIL/uL Hemoglobin 8.6 L 14.0-18.0 g/dL Hematocrit 27.0 L 42-54 % Mean Corpuscular Volume 75.6 L 79-99 fL Mean Corpuscular Hemoglobin 24.1 L 27.0-33.0 pg Mean Corpuscular Hemoglobin Concent 31.9 L 32.0-36.0 g/dL Red Cell Distribution Width 13.9 11.0-15.5 % Platelet Count 507 H 130-400 K/uL Mean Platelet Volume 9.4 7.5-10.5 fL Immature Granulocyte % (Auto) 0.7 0-1 % Neutrophils (%) (Auto) 75.8 40.0-77.0 % Lymphocytes (%) (Auto) 14.5 L 21.0-51.0 % Monocytes (%) (Auto) 7.5 3.0-13.0 % Eosinophils (%) (Auto) 1.2 0.0-8.0 % Basophils (%) (Auto) 0.3 0.0-5.0 % Neutrophils # (Auto) 12.8 H 1.8-7.7 K/uL Lymphocytes # (Auto) 2.4 1.0-4.8 K/uL Monocytes # (Auto) 1.3 H 0.1-1.0 K/uL Eosinophils # (Auto) 0.20 0.00-0.70 K/uL Basophils # (Auto) 0.05 0.00-0.20 K/uL Absolute Immature Granulocyte (auto 0.12 0-1 K/uL Nucleated Red Blood Cells 0.0 0.0-0.19 % Sodium Level 132 L 136-145 mmol/L Potassium Level 3.5 3.5-5.1 mmol/L Chloride Level 100 L 101-111 mmol/L Carbon Dioxide Level 22 21-32 mmol/L Blood Urea Nitrogen 35 H 7-18 mg/dL Creatinine 2.2 H 0.5-1.3 mg/dL Glomerular Filtration Rate Calc 36 >90 mL/min Random Glucose 263 H 70-105 mg/dL Total Calcium 8.2 L 8.5-10.1 mg/dL Phosphorus Level 4.0 2.5-4.9 mg/dL Magnesium Level 1.90 1.80-2.40 mg/dL Iron Level 10 #L 65-175 mcg/dL Total Iron Binding Capacity 111 L 250-450 mcg/dL Percent Iron Saturation 9.0 L 30-44 % Ferritin 686 H 30-400 ng/mL Total Bilirubin 0.2 # 0.2-1.0 mg/dL Aspartate Amino Transf (AST/SGOT) 15 10-37 U/L Alanine Aminotransferase (ALT/SGPT) 12 12-78 U/L Alkaline Phosphatase 190 H 50-136 U/L C-Reactive Protein, Quantitative 186.10 H 0.5-3.0 mg/L Total Protein 7.0 6.0-8.3 g/dL Albumin 1.2 L 3.5-5.0 g/dL Urine Random Creatinine 29.40 L 30-135 mg/dL Urine Random Total Protein 285.5 H 0-11.9 mg/dL Erythrocyte Sedimentation Rate 146 H 0-15 MM/HR Test 07/27/24 03:50 07/27/24 00:18 07/26/24 23:19 07/26/24 23:02 Range/Units Urine Color YELLOW YELLOW Urine Appearance TURBID CLEAR Urine pH 6.0 5.0-8.0 Urine Specific [place] 1.013 1.001-1.031 Urine Protein 300 H NEGATIVE mg/dL Urine Glucose (UA) 500 H NEGATIVE mg/dL Urine Ketones NEGATIVE NEGATIVE mg/dL Urine Occult Blood LARGE H NEGATIVE Urine Nitrate NEGATIVE NEGATIVE Urine Bilirubin NEGATIVE NEGATIVE mg/dL Urine Urobilinogen 0.2 0.2-1.0 mg/dL Urine Leukocyte Esterase 500 H NEGATIVE [place]/uL Urine RBC 26-50 H 0-1 /HPF Urine WBC TNTC H 0-1 /HPF Urine WBC Clumps (Auto) MOD 0-1 /HPF Urine Bacteria None None Seen /HPF Urine Yeast MANY None Seen /HPF Urine Yeast with Hyphae MOD None Seen /HPF Blood Gas Specimen Type Arterial Arterial Blood pH 7.335 L 7.350-7.450 Arterial Blood Partial Pressure CO2 30 L 35-48 mmHg Arterial Blood Partial Pressure O2 82.2 L 83.0-108.0 mmHg Arterial Blood HCO3 15.4 L 21.0-28.0 mmol/L Arterial Blood Oxygen Saturation 95.6 94.0-98.0 % Arterial Blood Base Excess -8.9 L -2.0-3.0 mmol/L Blood Gas Temperature 37.0 35.5-37.0 CELSIUS Blood Gas Vent Mode RA ROOM AIR FiO2 31.0 % Blood Gas Specimen Comment RR RN Lactic Acid Level 1.9 0.8-2.5 mmol/L Procalcitonin 0.50 0.05-0.5 ng/mL White Cell Morphology Comment See comments Red Blood Cell Morphology See comments Current Medications Medications (Trade) Dose Ordered Sig/Gaby Route PRN Reason Start Time Stop Time Status Last Admin Dose Admin Acetaminophen (TYLenol 325MG TAB) 650 mg Q4H PRN PO MILD PAIN (1-3) 07/27/24 02:30 08/26/24 02:29 Acetaminophen (TYLenol 325MG TAB) 650 mg Q6H PRN PO TEMPERATURE GREATER THAN 101.5 07/27/24 02:30 08/26/24 02:29 07/28/24 00:30 650 MG Acetaminophen/ Hydrocodone Bitart (NORco 5/325MG) 1 tab Q6H PRN PO MODERATE PAIN (4-6) 07/27/24 02:30 08/01/24 02:29 07/27/24 04:21 1 TAB Ceftriaxone Sodium (ROCEphine 1G INJ) 1 gm Q24H IVPB 07/27/24 14:30 08/06/24 14:29 07/27/24 14:25 1 GM Dextrose (D50w) 50 ml AD PRN IV HYPOGLYCEMIA PROTOCOL 07/27/24 04:00 08/26/24 03:59 Doxycycline Hyclate 250 ml @ 125 mls/hr Q12H IV 07/27/24 16:00 08/06/24 15:59 07/28/24 03:48 125 MLS/HR Famotidine (Pepcid 20mg Tab) 20 mg Q48H PO 07/27/24 02:30 08/26/24 02:29 07/27/24 04:20 20 MG Glucagon (Glucagon 1mg Kit) 1 mg AD PRN IM HYPOGLYCEMIA PROTOCOL 07/27/24 04:00 08/26/24 03:59 Hydromorphone HCl (DiLAUDid 0.5MG INJ) 0.5 mg Q3H3 PRN IVP SEVERE PAIN (7-10) 07/27/24 13:30 08/01/24 13:29 07/28/24 03:48 0.5 MG Insulin Human Regular (humuLIN R 100 UNIT/ML 3ML) INSULIN SLIDING SCAL... ACHS SQ 07/27/24 07:30 08/26/24 07:29 07/28/24 06:15 4 UNIT Magnesium Sulfate 50 ml @ 0 mls/hr PROTOCOL IV 07/27/24 10:00 07/27/24 13:42 DC Magnesium Sulfate 50 ml @ 0 mls/hr PROTOCOL IV 07/27/24 14:00 08/26/24 13:59 07/28/24 06:04 25 MLS/HR Magnesium Sulfate 50 ml @ 0 mls/hr PROTOCOL PRN IV OTHER [SEE ORDER COMMENTS] 07/27/24 04:00 07/27/24 13:42 DC 07/27/24 07:59 12.5 MLS/HR Ondansetron HCl (zoFRAN 4MG INJ) 4 mg Q6H PRN IV NAUSEA/VOMITING 07/27/24 02:30 08/26/24 02:29 Piperacillin Sod/ Tazobactam Sod 50 ml @ 12.5 mls/hr Q8H IV 07/27/24 05:00 07/27/24 14:15 DC 07/27/24 12:14 12.5 MLS/HR Potassium Chloride 100 ml @ 100 mls/hr AD PRN IV POTASSIUM PROTOCOL 07/27/24 04:00 08/26/24 03:59 Potassium Chloride (K-Dur/Klor-Con 20meq) 10 meq AD PRN PO POTASSIUM PROTOCOL 07/27/24 04:00 08/26/24 03:59 07/28/24 07:47 10 MEQ Potassium Chloride (KCl 10% Elixir 20meq/15ml) 10 meq AD PRN PO POTASSIUM PROTOCOL 07/27/24 04:00 08/26/24 03:59 Sodium Bicarbonate (Sodium Bicarbonate) 650 mg TID PRN PO INDIGESTION 07/27/24 12:00 08/26/24 11:59 Sodium Chloride 1,000 ml @ 100 mls/hr Q10H IV 07/27/24 03:30 08/26/24 03:29 07/27/24 22:31 100 MLS/HR Tamsulosin HCl (FloMAX) 0.4 mg DAILY PO 07/28/24 09:00 08/27/24 08:59 07/28/24 07:47 0.4 MG Vancomycin HCl 250 ml @ 125 mls/hr ONCE IV 07/27/24 02:30 07/27/24 02:32 DC Vancomycin HCl 250 ml @ 125 mls/hr Q24H IV 07/28/24 01:00 07/27/24 14:15 DC Vancomycin HCl (Vancomycin Protocol) 1 each AD IV 07/27/24 00:00 07/27/24 14:21 DC Vitamin B Complex/ Vit C/Folic Acid (Nephrovite Tablet) 1 cap DAILY PO 07/28/24 09:00 08/27/24 08:59 07/28/24 07:47 1 CAP DIAGNOSTICS / RADIOLOGY: [ ] ASSESSMENT: Right testicular cellulitis POA Urinary retention requiring Thomas catheter POA Acute kidney injury with CKD POA Hypertension POA Acute leukocytosis POA Microcytic hypochromic anemia iron deficiency POA Acute thrombocytosis POA Uncontrolled diabetes POA Hyperlipidemia POA Morbid Obesity POA Coronary artery disease POA Severe Protein calorie Malnutrition PAD with hx of AKA to the left side Obesity Hypoventilation Syndrome Metabolic acidosis electrolytes derangement: hypomagnesemia History Nephrotic syndrome PLAN: Admit: Medical floor condition: Guarded Status: Full IVF: NS at 75 mL/hour Consultants lamp shade sewer's, Infectious Disease, Antibiotics: Rocephin1 q 24 hrs doxycycline 100 mg IV b.i.d.. We will follow Infectious Disease recommendations. Patient continues fevers leukocytosis. Blood culture so far negative urine cultures waiting for cultures Labs cbc, cmp, mag+ We will monitor inflammatory markers Avoid NSAIDs strict I&O we will monitor renal function we will follow lamp shade sewer's recommendations Thomas care Replace electrolytes as needed as per protocol to keep potassium above 4.0 magn esium 2.0. We will monitor H&H trend to keep hemoglobin above 7.0 x1 Venofer 300 mg IV Bicarb po t.i.d. bowel regiment: lactulose 20 gm PO BID PRN constipation Pain management: Supportive measures: DVT ppx, GI ppx all questions answered time spent: > 35 min Supervising MD: Dr. Ivan c/d This document was generated in part using voice recognition software, occasional wrong word or sound alike substitutions may have occurred due to the inherent limitations of voice recognition software. Read the chart carefully and recognize using context, where the substitutions have occurred. Although every effort was made to edit the content, continuous mining operator and typing errors may occur ATTESTATION BY PHYSICIAN I have seen and examined the patient. I reviewed the documentation, medical decision making, and treatment plan as noted by the mid-level provider above. I agree with the findings and plan of care. JANET IVAN MD, ELIZABETH NP Jul 28, 2024 09:17
[2024-07-28] MEDS ORDERED: COMPOUND IV MISC 1 EACH IVSOLN MISC PRN (09:30)
[2024-07-28] MEDS: fluCONazole 100 MG TAB PO ONE (11:48)
--- NOTE | 2024-07-28 19:38 | PN ---
FOLLOWUP PROGRESS NOTE SUBJECTIVE: A 49-year-old male initially presented, found to have acute on chronic renal dysfunction. The patient has a history of vascular disease, status post lower extremity amputation. The patient with significant sepsis and remains on the antibiotics and the patient is being seen as a followup visit for all of the above. REVIEW OF SYSTEMS: GENERAL: He is feeling somewhat improved since admission. HEENT: No change in vision, no change in hearing, no nasal discharge, no sore throat. CARDIOVASCULAR: There is no current chest pain or palpitations. PULMONARY: There is no shortness of breath. GASTROINTESTINAL: The patient is tolerating a diet. MUSCULOSKELETAL: Complains of weakness. PHYSICAL EXAMINATION: VITAL SIGNS: Blood pressure 135/83, pulse of 90s. GENERAL: He is a chronically ill male, lying in bed on medical floor. HEENT: Head is atraumatic. Pupils are equal, roving to light. Oropharynx is without exudate. Nares are clear. NECK: There is no JVP, no thyromegaly. CARDIOVASCULAR: Regular. There is no S3, S4 gallop. LUNGS: Coarse with equal thoracic movement. ABDOMEN: Soft, nondistended, nontender. EXTREMITIES: There is no clubbing, no cyanosis. LABORATORY DATA: Hemoglobin 8.6, hematocrit 27, white cell count is 16,000. Sodium 132, BUN 35, creatinine 2. Iron levels are noted. Urine is growing out yeast. IMPRESSION: * Acute on chronic renal dysfunction. * Diabetic nephropathy. * Pyuria. * Anemia. PLAN: The patient's creatinine continues to stabilize. The patient will be given a dose of Diflucan for the yeast infection. The patient will also be started on Venofer for the anemia. We will continue to follow closely. All labs can be repeated in the morning. TID: [id number] RECEIPT: [id number]
[2024-07-28] MEDS: IRON sUCROse COMPLEX 300 MG in 0.9% NACL 250ML 250 ML IV ONE (20:44)
[2024-07-28] MEDS ORDERED: IRON sUCROse COMPLEX 300 MG in 0.9% NACL 250ML 250 ML IV ONE (21:00)
[2024-07-29] VITALS (9 sets, daily range): BP systolic 132–156; BP diastolic 71–75; PULSE 84–92; RESP 19–20; TEMP 98.5–99.7; O2SAT 91–95
[2024-07-29 05:49] LABS: BASOPHILS # (AUTO) 0.04 K/uL (0.00-0.20); BASOPHILS % (AUTO) 0.3 % (0.0-5.0); EOSINOPHILS # (AUTO) 0.13 K/uL (0.00-0.70); HEMATOCRIT 36.3 % (42-54); IMMATURE GRANULOCYTE ABSOLUTE 0.08 K/uL (0-1); LYMPHOCYTES # (AUTO) 1.8 K/uL (1.0-4.8); LYMPHOCYTES % (AUTO) 13.4 % (21.0-51.0); MEAN CORPUSCULAR HEMOGLOBIN 23.6 pg (27.0-33.0); MEAN CORPUSCULAR HGB CONC 29.8 g/dL (32.0-36.0); MEAN CORPUSCULAR VOLUME 79.3 fL (79-99); MONOCYTES # (AUTO) 0.9 K/uL (0.1-1.0); MONOCYTES % (AUTO) 6.7 % (3.0-13.0); NEUTROPHILS # (AUTO) 10.7 K/uL (1.8-7.7); PLATELET COUNT (AUTO) 126 K/uL (130-400); RED BLOOD CELL COUNT(AUTO) 4.58 MIL/uL (4.50-6.20); WHITE BLOOD COUNT (AUTO) 13.7 K/uL (4.8-10.8)
[2024-07-29 06:02] LABS: BILIRUBIN,TOTAL 0.2 mg/dL (0.2-1.0); MAGNESIUM 1.9 mg/dL (1.80-2.40); POTASSIUM 3.7 mmol/L (3.5-5.1)
--- NOTE | 2024-07-29 09:39 | PN ---
[facility] PROGRESS NOTE Date of Service: Jul 29, 2024 Time of Service: 09:32 SUBJECTIVE: [ ] This is a 49-year-old that was admitted early this morning with chief complaints of testicular cellulitis. Patient is fully awake alert oriented x3 patient has a Thomas catheter secondary to urinary retention were being urology started patient on Flomax. Patient has no history of urinary retention. GEOVANNI on this admission product marketing programs manager following. Patient has a history of nephrotic syndrome we will discontinue vancomycin and Zosyn. 07/28/24 patient is seen patient has been having temperature T-max 100.9 and leukocytosis being followed by infectious disease. Patient is fully awake alert oriented x3 07/29/24 patient appears to be doing better however continues with low-grade temp ID following for antibiotics stewardship. Leukocytosis trending down slowly. Right testicle erythema and swollen , tender to palpate. continue with indwelling catheter tender to. RN reached out to Urology pending consult. REVIEW OF SYSTEMS CONSTITUTIONAL: Denies fevers, chills, or night sweats. No unintentional weight loss reported. NEUROLOGICAL: Denies headache, amaurosis fugax, motor weakness, sensory deficit, vertigo/spinning sensation, gait abnormalities, or tremors. 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 CARDIOVASCULAR: Denies any exertional angina, dyspnea on exertion, orthopnea, paroxysmal nocturnal dyspnea, palpitations, life-threatening arrhythmias, claudication. PULMONARY: Denies any shortness of breath, cough, phlegm/sputum, hemoptysis, pleuritic chest pain. SLEEP: Denies morning headaches, daytime somnolence or napping. Denies difficulty falling asleep, staying asleep, waking from sleep. Denies knowledge of snoring. GASTROINTESTINAL: Denies any type of dysphagia to either liquids or solids. Denies nausea, vomiting, pyrosis, early satiety, abdominal pain, diarrhea, constipation, or changes in stool consistency or caliber. Denies coffee-ground emesis, hematemesis, hematochezia, or melanotic stools. GENITOURINARY: Denies frequency, urgency, nocturia, hematuria or incontinence (Storage/Irritative symptoms.) Low urinary stream, straining to void, urinary intermittency or hesitancy, splitting of the voiding stream, terminal dribbling. ENDOCRINOLOGIC: Denies polyuria, polydipsia, polyphagia or heat/cold intolerances. HEMATOLOGIC: Denies thrombophilia/previous clots, or coagulopathy/bleeding disorders. ONCOLOGIC: Denies personal history of malignancy. DERMATOLOGIC: Denies rashes or pruritus. PSYCHIATRIC: Denies any suicidal or homicidal ideation. Denies hallucinations. PHYSICAL EXAM GENERAL APPEARANCE: The patient is awake, alert, and oriented, in no acute cardiopulmonary distress. NEUROLOGICAL: Cranial nerves II-XII grossly intact. Motor is 5/5 in bilateral upper and lower extremities proximal to distal. No sensory deficits. HEENT: Face is symmetric. Pupils are equal and reactive. Extraocular movements are intact. NECK: Supple. No JVD. No thyromegaly. No submental, submandibular, pre- /postauricular, occipital or supraclavicular lymphadenopathy. CHEST: Normal chest expansion. No Telemetry. LUNGS: Absence of any rales, rhonchi or any wheezing. CARDIOVASCULAR: Regular. S1 and S2 normal. No appreciable rubs, murmurs or gallops. ABDOMEN: Soft, nontender, and nondistended. There is no rebound, voluntary guarding, or rigidity. : Deferred. No Thomas. EXTREMITIES: Non-edematous and not cyanotic. No clubbing. Good capillary refill. SKIN: Swollen testicles Vital Signs (last 8hr) Date Time Temp Pulse Resp B/P (MAP) Pulse Ox O2 Delivery O2 Flow Rate FiO2 07/29/24 07:28 98.4 87 19 136/73 95 Room Air 07/29/24 04:00 99.3 85 20 132/73 96 Room Air LABS: Laboratory: Test 07/29/24 05:18 07/29/24 05:05 07/28/24 05:08 07/28/24 00:15 Range/Units White Blood Count 13.7 H 4.8-10.8 K/uL Red Blood Count 4.58 4.50-6.20 MIL/uL Hemoglobin 10.8 #L 14.0-18.0 g/dL Hematocrit 36.3 #L 42-54 % Mean Corpuscular Volume 79.3 79-99 fL Mean Corpuscular Hemoglobin 23.6 L 27.0-33.0 pg Mean Corpuscular Hemoglobin Concent 29.8 L 32.0-36.0 g/dL Red Cell Distribution Width 14.0 11.0-15.5 % Platelet Count 126 #L 130-400 K/uL Mean Platelet Volume 10.6 H 7.5-10.5 fL Immature Granulocyte % (Auto) 0.6 0-1 % Neutrophils (%) (Auto) 78.0 H 40.0-77.0 % Lymphocytes (%) (Auto) 13.4 L 21.0-51.0 % Monocytes (%) (Auto) 6.7 3.0-13.0 % Eosinophils (%) (Auto) 1.0 0.0-8.0 % Basophils (%) (Auto) 0.3 0.0-5.0 % Neutrophils # (Auto) 10.7 H 1.8-7.7 K/uL Lymphocytes # (Auto) 1.8 1.0-4.8 K/uL Monocytes # (Auto) 0.9 0.1-1.0 K/uL Eosinophils # (Auto) 0.13 0.00-0.70 K/uL Basophils # (Auto) 0.04 0.00-0.20 K/uL Absolute Immature Granulocyte (auto 0.08 0-1 K/uL Nucleated Red Blood Cells 0.0 0.0-0.19 % Sodium Level 130 L 136-145 mmol/L Potassium Level 3.7 3.5-5.1 mmol/L Chloride Level 102 101-111 mmol/L Carbon Dioxide Level 19 L 21-32 mmol/L Blood Urea Nitrogen 33 H 7-18 mg/dL Creatinine 2.0 H 0.5-1.3 mg/dL Glomerular Filtration Rate Calc 40 >90 mL/min Random Glucose 201 H 70-105 mg/dL Total Calcium 8.4 L 8.5-10.1 mg/dL Magnesium Level 1.90 1.80-2.40 mg/dL Total Bilirubin 0.2 0.2-1.0 mg/dL Aspartate Amino Transf (AST/SGOT) 21 10-37 U/L Alanine Aminotransferase (ALT/SGPT) 14 12-78 U/L Alkaline Phosphatase 209 H 50-136 U/L Total Protein 7.0 6.0-8.3 g/dL Albumin 1.0 L 3.5-5.0 g/dL Whole Blood Glucose 190 H 70-110 MG/DL Phosphorus Level 4.0 2.5-4.9 mg/dL Iron Level 10 #L 65-175 mcg/dL Total Iron Binding Capacity 111 L 250-450 mcg/dL Percent Iron Saturation 9.0 L 30-44 % Ferritin 686 H 30-400 ng/mL C-Reactive Protein, Quantitative 186.10 H 0.5-3.0 mg/L Urine Random Creatinine 29.40 L 30-135 mg/dL Urine Random Total Protein 285.5 H 0-11.9 mg/dL Current Medications Medications (Trade) Dose Ordered Sig/Gaby Route PRN Reason Start Time Stop Time Status Last Admin Dose Admin Acetaminophen (TYLenol 325MG TAB) 650 mg Q4H PRN PO MILD PAIN (1-3) 07/27/24 02:30 08/26/24 02:29 Acetaminophen (TYLenol 325MG TAB) 650 mg Q6H PRN PO TEMPERATURE GREATER THAN 101.5 07/27/24 02:30 08/26/24 02:29 07/28/24 00:30 650 MG Acetaminophen/ Hydrocodone Bitart (NORco 5/325MG) 1 tab Q6H PRN PO MODERATE PAIN (4-6) 07/27/24 02:30 08/01/24 02:29 07/28/24 22:32 1 TAB Ceftriaxone Sodium (ROCEphine 1G INJ) 1 gm Q24H IVPB 07/27/24 14:30 08/06/24 14:29 07/28/24 14:22 1 GM Dextrose (D50w) 50 ml AD PRN IV HYPOGLYCEMIA PROTOCOL 07/27/24 04:00 08/26/24 03:59 Doxycycline Hyclate 250 ml @ 125 mls/hr Q12H IV 07/27/24 16:00 08/06/24 15:59 07/29/24 03:37 125 MLS/HR Famotidine (Pepcid 20mg Tab) 20 mg Q48H PO 07/27/24 02:30 08/26/24 02:29 07/29/24 02:03 20 MG Glucagon (Glucagon 1mg Kit) 1 mg AD PRN IM HYPOGLYCEMIA PROTOCOL 07/27/24 04:00 08/26/24 03:59 Hydromorphone HCl (DiLAUDid 0.5MG INJ) 0.5 mg Q3H3 PRN IVP SEVERE PAIN (7-10) 07/27/24 13:30 08/01/24 13:29 07/29/24 03:47 0.5 MG Insulin Human Regular (humuLIN R 100 UNIT/ML 3ML) INSULIN SLIDING SCAL... ACHS SQ 07/27/24 07:30 08/26/24 07:29 07/29/24 06:06 2 UNIT Magnesium Sulfate 50 ml @ 0 mls/hr PROTOCOL IV 07/27/24 10:00 07/27/24 13:42 DC Magnesium Sulfate 50 ml @ 0 mls/hr PROTOCOL IV 07/27/24 14:00 08/26/24 13:59 07/28/24 06:04 25 MLS/HR Magnesium Sulfate 50 ml @ 0 mls/hr PROTOCOL PRN IV OTHER [SEE ORDER COMMENTS] 07/27/24 04:00 07/27/24 13:42 DC 07/27/24 07:59 12.5 MLS/HR Ondansetron HCl (zoFRAN 4MG INJ) 4 mg Q6H PRN IV NAUSEA/VOMITING 07/27/24 02:30 08/26/24 02:29 Piperacillin Sod/ Tazobactam Sod 50 ml @ 12.5 mls/hr Q8H IV 07/27/24 05:00 07/27/24 14:15 DC 07/27/24 12:14 12.5 MLS/HR Potassium Chloride 100 ml @ 100 mls/hr AD PRN IV POTASSIUM PROTOCOL 07/27/24 04:00 08/26/24 03:59 Potassium Chloride (K-Dur/Klor-Con 20meq) 10 meq AD PRN PO POTASSIUM PROTOCOL 07/27/24 04:00 08/26/24 03:59 07/29/24 08:07 10 MEQ Potassium Chloride (KCl 10% Elixir 20meq/15ml) 10 meq AD PRN PO POTASSIUM PROTOCOL 07/27/24 04:00 08/26/24 03:59 Sodium Bicarbonate (Sodium Bicarbonate) 650 mg TID PRN PO INDIGESTION 07/27/24 12:00 08/26/24 11:59 Sodium Chloride 1,000 ml @ 100 mls/hr Q10H IV 07/27/24 03:30 08/26/24 03:29 07/27/24 22:31 100 MLS/HR Tamsulosin HCl (FloMAX) 0.4 mg DAILY PO 07/28/24 09:00 08/27/24 08:59 07/29/24 08:07 0.4 MG Vancomycin HCl 250 ml @ 125 mls/hr ONCE IV 07/27/24 02:30 07/27/24 02:32 DC Vancomycin HCl 250 ml @ 125 mls/hr Q24H IV 07/28/24 01:00 07/27/24 14:15 DC Vancomycin HCl (Vancomycin Protocol) 1 each AD IV 07/27/24 00:00 07/27/24 14:21 DC Vitamin B Complex/ Vit C/Folic Acid (Nephrovite Tablet) 1 cap DAILY PO 07/28/24 09:00 08/27/24 08:59 07/29/24 08:07 1 CAP DIAGNOSTICS / RADIOLOGY: [ ] ASSESSMENT: Right testicular cellulitis POA Urinary retention requiring Thomas catheter POA Acute kidney injury with CKD POA Hypertension POA Acute leukocytosis POA Microcytic hypochromic anemia iron deficiency POA Acute thrombocytosis POA Uncontrolled diabetes POA Hyperlipidemia POA Morbid Obesity POA Coronary artery disease POA Severe Protein calorie Malnutrition PAD with hx of AKA to the left side Obesity Hypoventilation Syndrome Metabolic acidosis electrolytes derangement: hypomagnesemia History Nephrotic syndrome PLAN: Admit: Medical floor condition: Guarded Status: Full IVF: NS at 75 mL/hour Consultants product marketing programs manager's, Infectious Disease, Antibiotics: Rocephin1 q 24 hrs doxycycline 100 mg IV b.i.d.. We will follow Infectious Disease recommendations. Patient continues fevers leukocytosis. Blood culture so far negative urine cultures waiting for cultures Labs cbc, cmp, mag+ Blood cultures on admission negative so far repeat cultures 24hr are negative - We will monitor inflammatory markers Avoid NSAIDs strict I&O we will monitor renal function we will follow product marketing programs manager's recommendations Thomas care Replace electrolytes as needed as per protocol to keep potassium above 4.0 magnesium 2.0. We will monitor H&H trend to keep hemoglobin above 7.0 vitamin B complex vitamin C folic acid one tablet daily. Bicarb po t.i.d. bowel regiment: lactulose 20 gm PO BID PRN constipation Pain management: Gabapentin 100 t.i.d.. [place] 5/325 p.o. as needed for pain. Supportive measures: DVT ppx, GI ppx PT services out of bed to chair Offloading self repositioning Supervising MD: Dr. Ivan c/d This document was generated in part using voice recognition software, occasional wrong word or sound alike substitutions may have occurred due to the inherent limitations of voice recognition software. Read the chart carefully and recognize using context, where the substitutions have occurred. Although every effort was made to edit the content, lead software tester and typing errors may occur ATTESTATION BY PHYSICIAN I have seen and examined the patient. I reviewed the documentation, medical decision making, and treatment plan as noted by the mid-level provider above. I agree with the findings and plan of care. JANET IVAN MD, ELIZABETH NP Jul 29, 2024 09:39
--- NOTE | 2024-07-29 13:49 | NUR ---
UROLOGY CONSULT SPOKE WITH DR. BLACKWELL'S ANSWERING SERVICE REGARDING PATIENT CONSULT. NOTIFIED OFFICE OF NEW CONSULT ON 07/27/24. PER ANSWERING SERVICE STAFF, NEW CONSULT INFORMATION WAS NOT ENTERED BY DR. BLACKWELL'S OFFICE STAFF. PROVIDED RELEVANT CONSULT INFORMATION AND CALL BACK NUMBER. PENDING VISIT FROM DR. BLACKWELL.
[2024-07-29 15:31] LABS: INR 1.22 (0.85-1.15); PROTHROMBIN TIME 12.7 SEC (9.6-11.6)
[2024-07-29 15:32] LABS: PARTIAL THROMBOPLASTIN TIME 37.8 SEC (26.3-35.5)
--- NOTE | 2024-07-29 18:44 | PN ---
SUBJECTIVE: A 49-year-old male with a history of renal dysfunction. The patient with underlying vascular disease, status post lower extremity amputation. The patient presented to the hospital and found to have underlying sepsis. The patient's leukocytosis has somewhat improved. He has had acute on chronic renal failure in the hospital. The patient is being seen as a followup visit for all of the above. REVIEW OF SYSTEMS: GENERAL: The patient is feeling weak and tired. HEENT: No change in vision. No change in hearing. CARDIOVASCULAR: There is no current chest pain or palpitations. PULMONARY: There is no shortness of breath. GASTROINTESTINAL: He is tolerating a diet. MUSCULOSKELETAL: Complains of weakness. PHYSICAL EXAMINATION: VITAL SIGNS: Blood pressure 149/75, pulse in the 90s. GENERAL: Chronically ill male, lying in bed on medical floor. HEENT: Head is atraumatic. Pupils equal, roving to light. Oropharynx is without exudate. Nares clear. NECK: There is no JVP. There is no thyromegaly. CARDIOVASCULAR: Regular. There is no S3, S4 gallop. LUNGS: Coarse with equal thoracic movement. ABDOMEN: Soft, nondistended, nontender. EXTREMITIES: There is no clubbing, no cyanosis. NEUROLOGIC: He is awake. He is alert. LABORATORY DATA: Hemoglobin 10, hematocrit 36, white cell count is 13,000. BUN 33, creatinine is 2. IMPRESSION: * Acute on chronic renal failure. * Cellulitis. * Diabetes mellitus. * Hypertension. PLAN: The patient's creatinine continues to stabilize. Urine output has been maintained. Blood pressure is under adequate control. He remains on the antibiotics as prescribed. The patient is encouraged with fluid restriction for the hyponatremia. All labs can be repeated in the morning. TID: [id number] RECEIPT: [id number]
--- NOTE | 2024-07-29 19:42 | CONS ---
INFECTIOUS DISEASE CONSULTATION NOTE DATE OF SERVICE: 07/27/2024 REQUESTING PHYSICIAN: Lillian Adair NP REASON FOR CONSULTATION: UTI and epididymo-orchitis. HISTORY OF PRESENT ILLNESS: This is a 49-year-old male with morbid obesity, right eye blindness, and diabetes mellitus, who presented to hospital with right testicular pain, swelling and redness. The patient also complained of dysuria and urinary frequency. The patient claims urine flow has been very low. The patient found to have urinary retention. Thomas catheter was placed. Urinalysis was positive. A sonogram showing right epididymal orchitis. PAST MEDICAL HISTORY: * Right eye blindness. * Diabetes mellitus. * Dyslipidemia. * Peripheral vascular disease. * Obesity. * Coronary artery disease. PAST SURGICAL HISTORY: * Right lower extremity stenting. * PCI. * Eye surgery. ALLERGIES: MORPHINE. CURRENT MEDICATIONS: Include: * Ceftriaxone. * Doxycycline. * Pepcid. * Insulin. * Tylenol. * Zofran. SOCIAL HISTORY: No alcohol, tobacco or illicit drug use. FAMILY HISTORY: Positive for diabetes mellitus. REVIEW OF SYSTEMS: Greater than 10 systems were reviewed, negative except as documented above. PHYSICAL EXAMINATION: GENERAL: Elderly male, awake. VITAL SIGNS: Temperature 98.8, pulse 80, respiratory rate 18, BP 124/68. EYES: Right eye blindness. HENT: No oral thrush seen. Moist oral mucosa. NECK: Supple, no JVD or thyromegaly. LUNGS: Good air entry. No rales, no rhonchi. CARDIOVASCULAR: S1, S2 regular. No murmur heard. ABDOMEN: Full, soft, nontender. Bowel sound is present. Obese. No organomegaly. CENTRAL NERVOUS SYSTEM: Awake, alert and oriented x 3. No focal deficits. SKIN: No rashes, no itchiness. LYMPHATIC: No peripheral lymphadenopathy. BACK: No deformity, no pressure ulcer. GENITOURINARY: Thomas catheter. Does have scrotal wall cellulitis. Right testicle is swollen, tender. LABORATORY DATA: Sodium 135, potassium 4.3, BUN 45, creatinine 2.3. WBC 15.5, hemoglobin 9.0, platelet 411. Urinalysis, too numerous to count. ASSESSMENT: A 49-year-old male with multiple problems which include: * Urinary tract infection. * Right epididymal orchitis. * Scrotal wall cellulitis. * Diabetes mellitus. * Renal failure. * Obesity. PLAN: * Continue ceftriaxone. * Continue doxycycline. * Continue antidiabetic. * Continue nutritional support. * Continue GI prophylaxis. * Monitor electrolytes. * The patient will be followed up closely. TID: [id number] RECEIPT: [id number]
--- NOTE | 2024-07-29 19:49 | NUR ---
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 uses w/c to get for transport and needs. sp assists with transport and care. provided info requested on provider services. referral to area agency and aging as requested by pt. dc plan is home. Addendum: 07/29/24 at 1953 by RICHAR WEINSTEIN CM Amended: Links added.
--- NOTE | 2024-07-29 20:05 | NUR ---
NOTE RECEIVED CALL FROM PATIENTS PANCHO, SHE WAS INQUIRING TO WHO WAS DOING DRESSING CHANGES TO RIGHT FOOT. PER PANCHO STATES, "DR NEAL HAS BEEN DOING WOUND CARE TO HIS FOOT WHAT ARE YOU ALL DOING THERE, WHO IS CHANGING HIS DRESSINGS?" MADE AWARE THERE IS NO WOUND CARE CONSULT NOR IS DR NEAL ON HIS CASE. (PANCHO) THEN STATED, "DO I HAVE TO GO OVER THERE AND DO THE DRESSING CHANGES MYSELF?" MADE AWARE I NURSE EARL WOULD LOOK AT HIS FOOT AND WOULD SEE ABOUT GETTING A WOUND CONSULT ORDER OR EVEN CONSULT FOR DR NEAL. SPOKE TO PT REGARDING THE DRESSING CHANGES TO HIS RIGHT FOOT, MADE HIM AWARE OF 'S CONCERNS. PER PT HE IS NO LONGER BEING SEEN BY DR NEAL ULCER TO BOTTOM OF RIGHT FOOT HAS HEELED AND HE (PT) TOOK IT UPON HIMSELF TO COVER UP HIS FOOT WITH A BANDAGE SINCE HE WAS IN THE HOSPITAL AND WAS TRYING TO PREVENT ANY INFECTION. I ASSESSED PT'S RIGHT FOOT AND ULCER TO BOTTOM OF RIGHT FOOT IS HEELED THERE IS NO BROKEN SKIN OR DRAINAGE NOTED. REDRESSED FOOT PER PT REQUEST. PT DID APOLOGIZE FOR HIS CALLING.
[2024-07-29] MEDS: atorVAStatin 40 MG TABLET PO SCH (21:29)
[2024-07-29] MEDS: CLOTRIMAZOLE 30 GM CREAM.GM. TP SCH (21:29)
[2024-07-29] MEDS: GABApentin 100 MG CAPSULE PO SCH (21:29)
[2024-07-29] MEDS: cefTRIAXone 1G VIAL IVPB SCH (21:36)
--- NOTE | 2024-07-29 22:22 | NUR ---
0 DR BLACKWELL IN TO SEE PT, NEW ORDER GIVEN FOR MERREM AND DISCONTINUE ROCEPHIN. PER PHARMACY PROTOCOL DOES NOT MEET CRITERIA. [address] SUMMERS MADE AWARE OF DR BLACKWELL ORDER TO DISCONTINUE ROCEPHIN AND ADD MERREM YET PT DOES NOT MEET PHARMACY CRITERIA FOR MERREM. PER DR SUMMERS CONTINUE ROCEPHIN THERAPY AND SAID NO TO MERREM AND DR BLACKWELL MAY ORDER MERREM UNDER HIS NAME.
[2024-07-29] MEDS: DOXYCYCLINE 100MG+NS 250ML 250 ML IV SCH (23:39)
[2024-07-30] VITALS (8 sets, daily range): BP systolic 135–149; BP diastolic 70–88; PULSE 75–92; RESP 18–20; TEMP 97.5–98.9; O2SAT 94–96
[2024-07-30 05:51] LABS: BASOPHILS # (AUTO) 0.05 K/uL (0.00-0.20); BASOPHILS % (AUTO) 0.3 % (0.0-5.0); EOSINOPHILS # (AUTO) 0.21 K/uL (0.00-0.70); EOSINOPHILS % (AUTO) 1.2 % (0.0-8.0); HEMATOCRIT 27.5 % (42-54); IMMATURE GRANULOCYTE ABSOLUTE 0.12 K/uL (0-1); LYMPHOCYTES # (AUTO) 2.4 K/uL (1.0-4.8); LYMPHOCYTES % (AUTO) 13.8 % (21.0-51.0); MEAN CORPUSCULAR HEMOGLOBIN 23.4 pg (27.0-33.0); MEAN CORPUSCULAR HGB CONC 30.9 g/dL (32.0-36.0); MEAN CORPUSCULAR VOLUME 75.8 fL (79-99); MONOCYTES # (AUTO) 1.2 K/uL (0.1-1.0); NEUTROPHILS # (AUTO) 13.6 K/uL (1.8-7.7); PLATELET COUNT (AUTO) 509 K/uL (130-400); RED BLOOD CELL COUNT(AUTO) 3.63 MIL/uL (4.50-6.20); RED CELL DISTRIBUTION WIDTH 14.1 % (11.0-15.5); WHITE BLOOD COUNT (AUTO) 17.6 K/uL (4.8-10.8)
[2024-07-30 06:12] LABS: BILIRUBIN,TOTAL 0.2 mg/dL (0.2-1.0); CREATININE 1.9 mg/dL (0.5-1.3); MAGNESIUM 1.7 mg/dL (1.80-2.40); POTASSIUM 3.3 mmol/L (3.5-5.1); TOTAL PROTEIN, SERUM 6.9 g/dL (6.0-8.3)
[2024-07-30] MEDS: PoTASSium chloRIDE 10MEQ SR 10 MEQ/TAB TAB.SR.24H PO PRN (06:27)
--- NOTE | 2024-07-30 08:49 | PN ---
[facility] PROGRESS NOTE Date of Service: Jul 30, 2024 Time of Service: 08:42 SUBJECTIVE: [ ] This is a 49-year-old that was admitted early this morning with chief complaints of testicular cellulitis. Patient is fully awake alert oriented x3 patient has a Thomas catheter secondary to urinary retention were being urology started patient on Flomax. Patient has no history of urinary retention. GEOVANNI on this admission dry primer powder blender following. Patient has a history of nephrotic syndrome we will discontinue vancomycin and Zosyn. 07/28/24 patient is seen patient has been having temperature T-max 100.9 and leukocytosis being followed by infectious disease. Patient is fully awake alert oriented x3 07/29/24 patient appears to be doing better however continues with low-grade temp ID following for antibiotics stewardship. Leukocytosis trending down slowly. Right testicle erythema and swollen , tender to palpate. continue with indwelling catheter tender to. RN reached out to Urology pending consult. 07/30/24 we repeat ultrasound testicular pending results. Leukocytosis is persistent however is afebrile and on empiric antibiotics. The patient offers no new complaints. REVIEW OF SYSTEMS CONSTITUTIONAL: Denies fevers, chills, or night sweats. No unintentional weight loss reported. NEUROLOGICAL: Denies headache, amaurosis fugax, motor weakness, sensory deficit, vertigo/spinning sensation, gait abnormalities, or tremors. 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 CARDIOVASCULAR: Denies any exertional angina, dyspnea on exertion, orthopnea, paroxysmal nocturnal dyspnea, palpitations, life-threatening arrhythmias, claudication. PULMONARY: Denies any shortness of breath, cough, phlegm/sputum, hemoptysis, pleuritic chest pain. SLEEP: Denies morning headaches, daytime somnolence or napping. Denies difficulty falling asleep, staying asleep, waking from sleep. Denies knowledge of snoring. GASTROINTESTINAL: Denies any type of dysphagia to either liquids or solids. Denies nausea, vomiting, pyrosis, early satiety, abdominal pain, diarrhea, constipation, or changes in stool consistency or caliber. Denies coffee-ground emesis, hematemesis, hematochezia, or melanotic stools. GENITOURINARY: Denies frequency, urgency, nocturia, hematuria or incontinence (Storage/Irritative symptoms.) Low urinary stream, straining to void, urinary intermittency or hesitancy, splitting of the voiding stream, terminal dribbling. ENDOCRINOLOGIC: Denies polyuria, polydipsia, polyphagia or heat/cold intolerances. HEMATOLOGIC: Denies thrombophilia/previous clots, or coagulopathy/bleeding disorders. ONCOLOGIC: Denies personal history of malignancy. DERMATOLOGIC: Denies rashes or pruritus. PSYCHIATRIC: Denies any suicidal or homicidal ideation. Denies hallucinations. PHYSICAL EXAM GENERAL APPEARANCE: The patient is awake, alert, and oriented, in no acute cardiopulmonary distress. NEUROLOGICAL: Cranial nerves II-XII grossly intact. Motor is 5/5 in bilateral upper and lower extremities proximal to distal. No sensory deficits. HEENT: Face is symmetric. Pupils are equal and reactive. Extraocular movements are intact. NECK: Supple. No JVD. No thyromegaly. No submental, submandibular, pre- /postauricular, occipital or supraclavicular lymphadenopathy. CHEST: Normal chest expansion. No Telemetry. LUNGS: Absence of any rales, rhonchi or any wheezing. CARDIOVASCULAR: Regular. S1 and S2 normal. No appreciable rubs, murmurs or gallops. ABDOMEN: Soft, nontender, and nondistended. There is no rebound, voluntary guarding, or rigidity. : Deferred. No Thomas. EXTREMITIES: Non-edematous and not cyanotic. No clubbing. Good capillary refill. SKIN: Swollen testicles Vital Signs (last 8hr) Date Time Temp Pulse Resp B/P (MAP) Pulse Ox O2 Delivery O2 Flow Rate FiO2 07/30/24 04:00 98.8 75 18 140/81 93 Room Air 21 LABS: Laboratory: Test 07/30/24 05:22 07/29/24 15:03 Range/Units White Blood Count 17.6 H 4.8-10.8 K/uL Red Blood Count 3.63 L 4.50-6.20 MIL/uL Hemoglobin 8.5 #L 14.0-18.0 g/dL Hematocrit 27.5 #L 42-54 % Mean Corpuscular Volume 75.8 L 79-99 fL Mean Corpuscular Hemoglobin 23.4 L 27.0-33.0 pg Mean Corpuscular Hemoglobin Concent 30.9 L 32.0-36.0 g/dL Red Cell Distribution Width 14.1 11.0-15.5 % Platelet Count 509 #H 130-400 K/uL Mean Platelet Volume 9.4 7.5-10.5 fL Immature Granulocyte % (Auto) 0.7 0-1 % Neutrophils (%) (Auto) 77.0 40.0-77.0 % Lymphocytes (%) (Auto) 13.8 L 21.0-51.0 % Monocytes (%) (Auto) 7.0 3.0-13.0 % Eosinophils (%) (Auto) 1.2 0.0-8.0 % Basophils (%) (Auto) 0.3 0.0-5.0 % Neutrophils # (Auto) 13.6 H 1.8-7.7 K/uL Lymphocytes # (Auto) 2.4 1.0-4.8 K/uL Monocytes # (Auto) 1.2 H 0.1-1.0 K/uL Eosinophils # (Auto) 0.21 0.00-0.70 K/uL Basophils # (Auto) 0.05 0.00-0.20 K/uL Absolute Immature Granulocyte (auto 0.12 0-1 K/uL Nucleated Red Blood Cells 0.0 0.0-0.19 % Sodium Level 129 L 136-145 mmol/L Potassium Level 3.3 L 3.5-5.1 mmol/L Chloride Level 100 L 101-111 mmol/L Carbon Dioxide Level 20 L 21-32 mmol/L Blood Urea Nitrogen 34 H 7-18 mg/dL Creatinine 1.9 H 0.5-1.3 mg/dL Glomerular Filtration Rate Calc 43 >90 mL/min Whole Blood Glucose 234 H 70-110 MG/DL Random Glucose 244 H 70-105 mg/dL Total Calcium 8.4 L 8.5-10.1 mg/dL Magnesium Level 1.70 L 1.80-2.40 mg/dL Total Bilirubin 0.2 0.2-1.0 mg/dL Aspartate Amino Transf (AST/SGOT) 24 10-37 U/L Alanine Aminotransferase (ALT/SGPT) 23 12-78 U/L Alkaline Phosphatase 249 H 50-136 U/L Total Protein 6.9 6.0-8.3 g/dL Albumin 1.0 L 3.5-5.0 g/dL Prothrombin Time 12.7 H 9.6-11.6 SEC Prothromb Time International Ratio 1.22 H 0.85-1.15 Activated Partial Thromboplast Time 37.8 H 26.3-35.5 SEC Current Medications Medications (Trade) Dose Ordered Sig/Gaby Route PRN Reason Start Time Stop Time Status Last Admin Dose Admin Acetaminophen (TYLenol 325MG TAB) 650 mg Q4H PRN PO MILD PAIN (1-3) 07/27/24 02:30 08/26/24 02:29 Acetaminophen (TYLenol 325MG TAB) 650 mg Q6H PRN PO TEMPERATURE GREATER THAN 101.5 07/27/24 02:30 08/26/24 02:29 07/29/24 17:35 650 MG Acetaminophen/ Hydrocodone Bitart (NORco 5/325MG) 1 tab Q6H PRN PO MODERATE PAIN (4-6) 07/27/24 02:30 08/01/24 02:29 07/28/24 22:32 1 TAB Aspirin (Aspirin 81mg Chew Tab) 81 mg AM PO 07/30/24 09:00 08/29/24 08:59 Atorvastatin Calcium (LIPItor 40MG) 40 mg HS PO 07/29/24 21:00 08/28/24 20:59 07/29/24 21:29 40 MG Ceftriaxone Sodium (ROCEphine 1G INJ) 1 gm Q24H IVPB 07/27/24 14:30 07/29/24 21:33 DC 07/28/24 14:22 1 GM Ceftriaxone Sodium (ROCEphine 1G INJ) 1 gm Q24H IVPB 07/29/24 22:00 08/06/24 21:59 07/29/24 21:36 1 GM Clotrimazole (Lotrimin) 1 APPL TP BID BID TP 07/29/24 21:00 08/28/24 20:59 07/29/24 21:29 1 GM Dextrose (D50w) 50 ml AD PRN IV HYPOGLYCEMIA PROTOCOL 07/27/24 04:00 08/26/24 03:59 Doxycycline Hyclate 250 ml @ 125 mls/hr Q12H IV 07/27/24 16:00 07/29/24 21:35 DC 07/29/24 03:37 125 MLS/HR Doxycycline Hyclate 250 ml @ 125 mls/hr Q12H IV 07/29/24 23:59 08/06/24 23:58 07/29/24 23:39 125 MLS/HR Famotidine (Pepcid 20mg Tab) 20 mg Q48H PO 07/27/24 02:30 08/26/24 02:29 07/29/24 02:03 20 MG Ferrous Sulfate (Ferrous Sulfate) 325 mg DAILY PO 07/30/24 09:00 08/29/24 08:59 Gabapentin (NEURontin 100 mg CAP) 100 mg BID PO 07/29/24 21:00 08/28/24 20:59 07/29/24 21:29 100 MG Glucagon (Glucagon 1mg Kit) 1 mg AD PRN IM HYPOGLYCEMIA PROTOCOL 07/27/24 04:00 08/26/24 03:59 Home Med (Home Medication) DAPAGLIFLOZIN 5MG TAB DAILY PO 07/30/24 09:00 08/29/24 08:59 Hydromorphone HCl (DiLAUDid 0.5MG INJ) 0.5 mg Q3H3 PRN IVP SEVERE PAIN (7-10) 07/27/24 13:30 08/01/24 13:29 07/30/24 04:24 0.5 MG Insulin Human Regular (humuLIN R 100 UNIT/ML 3ML) INSULIN SLIDING SCAL... ACHS SQ 07/27/24 07:30 08/26/24 07:29 07/30/24 05:52 4 UNIT Lactulose (Constulose 20gm/ 30ml Udcup) 20 gm BID PRN PO CONSTIPATION 07/30/24 08:30 08/29/24 08:29 Magnesium Sulfate 50 ml @ 0 mls/hr PROTOCOL IV 07/27/24 10:00 07/27/24 13:42 DC Magnesium Sulfate 50 ml @ 0 mls/hr PROTOCOL IV 07/27/24 14:00 08/26/24 13:59 07/30/24 06:27 25 MLS/HR Magnesium Sulfate 50 ml @ 0 mls/hr PROTOCOL PRN IV OTHER [SEE ORDER COMMENTS] 07/27/24 04:00 07/27/24 13:42 DC 07/27/24 07:59 12.5 MLS/HR Ondansetron HCl (zoFRAN 4MG INJ) 4 mg Q6H PRN IV NAUSEA/VOMITING 07/27/24 02:30 08/26/24 02:29 Piperacillin Sod/ Tazobactam Sod 50 ml @ 12.5 mls/hr Q8H IV 07/27/24 05:00 07/27/24 14:15 DC 07/27/24 12:14 12.5 MLS/HR Potassium Chloride 100 ml @ 100 mls/hr AD PRN IV POTASSIUM PROTOCOL 07/27/24 04:00 08/26/24 03:59 Potassium Chloride (K-Dur 10meq Sr Tab) 10 meq AD PRN PO POTASSIUM PROTOCOL 07/30/24 06:30 08/26/24 03:59 07/30/24 06:27 10 MEQ Potassium Chloride (K-Dur/Klor-Con 20meq) 10 meq AD PRN PO POTASSIUM PROTOCOL 07/27/24 04:00 07/30/24 06:22 DC 07/29/24 08:07 10 MEQ Potassium Chloride (KCl 10% Elixir 20meq/15ml) 10 meq AD PRN PO POTASSIUM PROTOCOL 07/27/24 04:00 08/26/24 03:59 Sodium Bicarbonate (Sodium Bicarbonate) 650 mg TID PRN PO INDIGESTION 07/27/24 12:00 08/26/24 11:59 Sodium Chloride 1,000 ml @ 100 mls/hr Q10H IV 07/27/24 03:30 08/26/24 03:29 07/27/24 22:31 100 MLS/HR Tamsulosin HCl (FloMAX) 0.4 mg DAILY PO 07/28/24 09:00 08/27/24 08:59 07/29/24 08:07 0.4 MG Vancomycin HCl 250 ml @ 125 mls/hr ONCE IV 07/27/24 02:30 07/27/24 02:32 DC Vancomycin HCl 250 ml @ 125 mls/hr Q24H IV 07/28/24 01:00 07/27/24 14:15 DC Vancomycin HCl (Vancomycin Protocol) 1 each AD IV 07/27/24 00:00 07/27/24 14:21 DC Vitamin B Complex/ Vit C/Folic Acid (Nephrovite Tablet) 1 cap DAILY PO 07/28/24 09:00 08/27/24 08:59 07/29/24 08:07 1 CAP DIAGNOSTICS / RADIOLOGY: [ ] ASSESSMENT: Right testicular cellulitis POA Urinary retention requiring Thomas catheter POA Acute kidney injury with CKD POA Hypertension POA Acute leukocytosis POA Microcytic hypochromic anemia iron deficiency POA Acute thrombocytosis POA Uncontrolled diabetes POA Hyperlipidemia POA Morbid Obesity POA Coronary artery disease POA Severe Protein calorie Malnutrition PAD with hx of AKA to the left side Obesity Hypoventilation Syndrome Metabolic acidosis electrolytes derangement: hypomagnesemia History Nephrotic syndrome PLAN: Admit: Medical floor condition: Guarded Status: Full IVF: NS at 75 mL/hour Consultants dry primer powder blender's, Infectious Disease, Antibiotics: Rocephin1 q 24 hrs doxycycline 100 mg IV b.i.d.. Test: Repeat US testicular pending results Labs cbc, cmp, mag+ Inflammatory markers every other day Blood cultures on admission negative so far repeat cultures 24hr are negative - We will monitor inflammatory markers Avoid NSAIDs strict I&O we will monitor renal function we will follow ne phrologist's recommendations Thomas care Replace electrolytes as needed as per protocol to keep potassium above 4.0 magnesium 2.0. We will monitor H&H trend to keep hemoglobin above 7.0 vitamin B complex vitamin C folic acid one tablet daily. Bicarb po t.i.d. bowel regiment: lactulose 20 gm PO BID PRN constipation Pain management: Gabapentin 100 t.i.d.. [place] 5/325 p.o. as needed for pain. Supportive measures: DVT ppx, GI ppx PT services out of bed to chair Offloading self repositioning Supervising MD: Dr. Tato Guzman c/d This document was generated in part using voice recognition software, occasional wrong word or sound alike substitutions may have occurred due to the inherent limitations of voice recognition software. Read the chart carefully and r ecognize using context, where the substitutions have occurred. Although every effort was made to edit the content, key person and typing errors may occur ATTESTATION BY PHYSICIAN I have seen and examined the patient. I reviewed the documentation, medical decision making, and treatment plan as noted by the mid-level provider above. I agree with the findings and plan of care. MIHIR HUBBARD MD, ELIZABETH NP Jul 30, 2024 08:49
[2024-07-30] MEDS: DAPAGLIFLOZIN 5 MG PO SCH (09:00)
[2024-07-30] MEDS: LACTULOSE 20 GM/30 ML UDCUP PO PRN (09:00)
[2024-07-30] MEDS: ASPIRIN 81MG CHEW TAB PO SCH (09:02)
[2024-07-30] MEDS: PoTASSium chloRIDE 20MEQ/100ML 100 ML IV ONE (09:04)
[2024-07-30] MEDS: FERROUS SULFATE 325 MG TABLET.DR PO SCH (09:05)
--- NOTE | 2024-07-30 11:36 | HMCIMG ---
US SCROTUM & CONTENTS HISTORY: Follow-up scrotal abscess COMPARISON: None TECHNIQUE: Duplex scrotal ultrasound study was performed. FINDINGS: The right testes measures 3.8 x 2 x 1.6 cm. The left testes measures 2.3 x 2.1 cm. Normal flow is seen of left testes and bilateral epididymides. Mild increased flow is seen of the right testes suggested of right orchitis. There is right scrotal abscess measuring 7.9 x 3.6 x 5 cm with adjacent wall thickening. Normal flow is demonstrated in the testes and epididymides bilaterally. No hydroceles or varicocele is seen. IMPRESSION: 1. Mild increased flow is seen of the right testes suggested of right orchitis. There is right scrotal abscess measuring 7.9 x 3.6 x 5 cm with adjacent wall thickening.
--- NOTE | 2024-07-30 12:10 | PN ---
INFECTIOUS DISEASE PROGRESS NOTE Date of Service: Jul 28, 2024 SUBJECTIVE: This is a 49-year-old male patient presented to the hospital with chief complaint of right testicle pain. A scrotal ultrasound done on admission showed mild right epididymal orchitis. Patient was seen and examined at bedside in room 317. Patient is awake, alert and oriented x3. 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 The right testicle is very swollen and erythematous. Very tender on palpation. Patient is pending a urology evaluation. Patient's WBC remains high at 16.9 and patient continued having low-grade fevers of 100.2 last night, current temperature is 99.5. We will continue on ceftriaxone and doxycycline. We will continue to monitor patient's care. PHYSICAL EXAM EYES: Anicteric. Pupils equal and reactive. Right eye blindness. HENT: No oral thrush seen, moist Oral mucosa. NECK: Supple, no JVD or thyromegaly. LUNGS: Good air entry. No rales, no rhonchi. CARDIOVASCULAR: S1, S2 regular. No murmur heard. ABDOMEN: Soft, non tender, bowel sounds present, no organomegaly. CENTRAL NERVOUS SYSTEM: Awake, alert, oriented x 3. SKIN: No rashes, no swelling. LYMPHATICS: No peripheral lymphadenopathy. MUSCULOSKELETAL: No joint swelling, erythema or tenderness. EXTREMITIES: No cyanosis or clubbing. 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 BACK: No deformity, no pressure ulcer. GENITOURINARY: No dysuria or hematuria. Thomas catheter. SCROTUM: Swelling and erythema. Vital Sign (Last 12 Hours) 07/30/24 07/30/24 04:00 08:46 Temp 98.8 98.4 Pulse 75 Resp 18 B/P (MAP) 140/81 Pulse Ox 93 O2 Delivery Room Air FiO2 21 Intake & Output (last 24hrs) 07/29/24 07/29/24 07/30/24 15:00 23:00 07:00 Intake Total 800 ml Output Total 800 ml 500 ml 1900 ml Balance 0 ml -500 ml -1900 ml LABS: Laboratory: Test 07/30/24 11:50 07/30/24 05:22 07/29/24 15:03 Range/Units Whole Blood Glucose 278 H 70-110 MG/DL White Blood Count 17.6 H 4.8-10.8 K/uL Red Blood Count 3.63 L 4.50-6.20 MIL/uL Hemoglobin 8.5 #L 14.0-18.0 g/dL Hematocrit 27.5 #L 42-54 % Mean Corpuscular Volume 75.8 L 79-99 fL Mean Corpuscular Hemoglobin 23.4 L 27.0-33.0 pg Mean Corpuscular Hemoglobin Concent 30.9 L 32.0-36.0 g/dL Red Cell Distribution Width 14.1 11.0-15.5 % Platelet Count 509 #H 130-400 K/uL Mean Platelet Volume 9.4 7.5-10.5 fL Immature Granulocyte % (Auto) 0.7 0-1 % Neutrophils (%) (Auto) 77.0 40.0-77.0 % Lymphocytes (%) (Auto) 13.8 L 21.0-51.0 % Monocytes (%) (Auto) 7.0 3.0-13.0 % Eosinophils (%) (Auto) 1.2 0.0-8.0 % Basophils (%) (Auto) 0.3 0.0-5.0 % Neutrophils # (Auto) 13.6 H 1.8-7.7 K/uL Lymphocytes # (Auto) 2.4 1.0-4.8 K/uL Monocytes # (Auto) 1.2 H 0.1-1.0 K/uL Eosinophils # (Auto) 0.21 0.00-0.70 K/uL Basophils # (Auto) 0.05 0.00-0.20 K/uL Absolute Immature Granulocyte (auto 0.12 0-1 K/uL Nucleated Red Blood Cells 0.0 0.0-0.19 % Sodium Level 129 L 136-145 mmol/L Potassium Level 3.3 L 3.5-5.1 mmol/L Chloride Level 100 L 101-111 mmol/L Carbon Dioxide Level 20 L 21-32 mmol/L Blood Urea Nitrogen 34 H 7-18 mg/dL Creatinine 1.9 H 0.5-1.3 mg/dL Glomerular Filtration Rate Calc 43 >90 mL/min Random Glucose 244 H 70-105 mg/dL Total Calcium 8.4 L 8.5-10.1 mg/dL Magnesium Level 1.70 L 1.80-2.40 mg/dL Total Bilirubin 0.2 0.2-1.0 mg/dL Aspartate Amino Transf (AST/SGOT) 24 10-37 U/L Alanine Aminotransferase (ALT/SGPT) 23 12-78 U/L Alkaline Phosphatase 249 H 50-136 U/L Total Protein 6.9 6.0-8.3 g/dL Albumin 1.0 L 3.5-5.0 g/dL Prothrombin Time 12.7 H 9.6-11.6 SEC Prothromb Time International Ratio 1.22 H 0.85-1.15 Activated Partial Thromboplast Time 37.8 H 26.3-35.5 SEC DIAGNOSTICS / RADIOLOGY: PATIENT: ASHA SUERO MR#: [id number] : 1975 SEX: M AGE: 49 LOCATION: [facility] ORDER 9 STATUS: ADM IN REPORT#: [id number] SERVICE 0 REASON: testicular pain and swelling ORDERING PHYSICIAN: JACQUELYN GIBBS PROCEDURE: SCROTUM - US SCROTUM & CONTENTS US SCROTUM & CONTENTS HISTORY: Testicular pain COMPARISON: None TECHNIQUE: Duplex scrotal ultrasound study was performed. FINDINGS: The right testes measures 3.6 x 1.4 x 2.7 cm. The left testes measures 3.5 x 1.6 x 2 cm. No evidence of intratesticular mass or abnormal calcification is seen. Normal flow is demonstrated in the left testes and left epididymis. There is left epididymal cyst measuring 3 mm. Hypoechoic focus is seen in the epididymal head with adjacent vascularity measuring 4.3 x 1.9 x 3.8 cm at the inferior aspect of the left testes. Slight increased flow is seen of the right testes and right epididymis suspicious for right epididymal orchitis. No hydroceles or varicocele is seen. IMPRESSION: 1. Findings may be related to mild right epididymal orchitis. DICTATED BY: BRIAN LUBIN MD DATE: 07/27/24901 ASSESSMENT: Right epididymal orchitis. Scrotal wall cellulitis. Urinary tract infection. Leukocytosis. Acute renal failure. Diabetes mellitus. PLAN: Continue ceftriaxone. Continue doxycycline. Continue GI prophylaxis. Continue pain management. Continue monitoring glucose levels. We will follow up on the culture results. Urology has been consulted and following. This case was reviewed and discussed with my supervising physician and the above assessment and plan was formulated and agreed upon. ATTESTATION BY PHYSICIAN I have seen and examined the patient. I reviewed the documentation, medical decision making, and treatment plan as noted by the mid-level provider above. I agree with the findings and plan of care. GRANT SUMMERS MD, MIRTA L FNP Jul 30, 2024 12:10
--- NOTE | 2024-07-30 15:49 | NUR ---
Nutrition consult per low albumin Reviewed labs, notes, and medications. Pt with right eye blindness, quit smoking 2 years ago, left AKA, ultrasound testicular pending results, on 60gm cho, Iv fluids, insulin, b-complex, Fe, sedated, Na 129(L), K 3.3 (L), elevated bun 34, elevated Cr 1.9, BG 278(H), Mg 1.70(L), Ca 8.4(L), elevated CRP per chart review. Wt via supine scale, 100%PO intake, last BM 07/25/24, no ulcers noted, no edema, no A1C per nursing. Low albumin may be due to elevated CRP. Recommendations -Provide 60 gm cho + HH diet -Monitor PO intake -Encourage PO intake as able -Monitor BM -If no BM >3 days consider stool softener -Monitor electrolytes -Replenish electrolytes per protocol -Monitor wts -Reweigh as able -Order Vit D, vit b-12 labs to rule out deficiencies -Order lipid panel, A1C -Provide b-complex QD -Recommend Pt to follow up with PCP -Monitor goals of care RD to follow + available for consult per protocol Addendum: 07/30/24 at [address] Amended: Links added.
[2024-07-30 16:02] LABS: THYROID STIMULATING HORMONE 1.55 uIU/mL (0.36-3.74); URIC ACID 6.5 mg/dL (2.6-7.2)
--- NOTE | 2024-07-30 16:02 | PN ---
NEPHROLOGY PROGRESS NOTE Date/Time Patient Seen: Jul 30, 2024 Reason for Consultation: 15:58 SUBJECTIVE: This is a 49-year-old male with a past medical history of diabetes mellitus type 2, hypertension, peripheral arterial disease with left AKA, coronary artery disease, hyperlipidemia, GERD, PAD, and obesity Patient presented to the emergency room for testicular pain and swelling Thomas in place due to urinary retention, pending Urology recommendations. Blood and urine cultures have been collected, pending results Continues on antibiotics, vancomycin has been discontinued. Continues on gentle IV hydration Were consulted for renal failure. Renal function is improving Electrolytes are stable. UA positive for proteinuria. Hemoglobin noted Patient was seen in the medical floor, in no acute distress REVIEW OF SYSTEMS: GENERAL: Positive for testicular pain and swelling NEUROLOGIC: Negative for any blurry vision, blind spots, double vision, facial asymmetry, dysphagia, dysarthria, hemiparesis, hemisensory deficits, vertigo, ataxia. HEENT: Negative for any head trauma, neck trauma, neck stiffness, photophobia, phonophobia, sinusitis, rhinitis. CARDIAC: Negative for any chest pain, dyspnea on exertion, paroxysmal nocturnal dyspnea, peripheral edema. PULMONARY: Negative for any shortness of breath, wheezing, COPD, or TB exposure. GASTROINTESTINAL: Negative for any abdominal pain, nausea, vomiting, bright red blood per rectum, melena. GENITOURINARY: Negative for any dysuria, hematuria, incontinence. INTEGUMENTARY: Negative for any rashes, cuts, insect bites. RHEUMATOLOGIC: Negative for any joint pains, photosensitive rashes, history of vasculitis or kidney problems. HEMATOLOGIC: Negative for any abnormal bruising, frequent infections or bleeding. PHYSICAL EXAM: GENERAL: Alert and oriented x 3. No acute distress. Well-nourished. EYES: EOMI. Anicteric. HENT: Moist mucous membranes. No scleral icterus. No cervical lymphadenopathy. LUNGS: Clear to auscultation bilaterally. No accessory muscle use. CARDIOVASCULAR: Regular rate and rhythm. No murmur. No JVD. ABDOMEN: Soft, non-tender and non-distended. No palpable masses. EXTREMITIES: 2+ edema. Non-tender. SKIN: No rashes or lesions. Warm. NEUROLOGIC: No focal neurological deficits. CN II-XII grossly intact, but not individually tested. PSYCHIATRIC: Cooperative. Appropriate mood and affect. LABORATORY: [ ] Hematology Labs: Test 07/30/24 05:22 Range/Units White Blood Count 17.6 H 4.8-10.8 K/uL Red Blood Count 3.63 L 4.50-6.20 MIL/uL Hemoglobin 8.5 #L 14.0-18.0 g/dL Hematocrit 27.5 #L 42-54 % Mean Corpuscular Volume 75.8 L 79-99 fL Mean Corpuscular Hemoglobin 23.4 L 27.0-33.0 pg Mean Corpuscular Hemoglobin Concent 30.9 L 32.0-36.0 g/dL Red Cell Distribution Width 14.1 11.0-15.5 % Platelet Count 509 #H 130-400 K/uL Mean Platelet Volume 9.4 7.5-10.5 fL Immature Granulocyte % (Auto) 0.7 0-1 % Neutrophils (%) (Auto) 77.0 40.0-77.0 % Lymphocytes (%) (Auto) 13.8 L 21.0-51.0 % Monocytes (%) (Auto) 7.0 3.0-13.0 % Eosinophils (%) (Auto) 1.2 0.0-8.0 % Basophils (%) (Auto) 0.3 0.0-5.0 % Neutrophils # (Auto) 13.6 H 1.8-7.7 K/uL Lymphocytes # (Auto) 2.4 1.0-4.8 K/uL Monocytes # (Auto) 1.2 H 0.1-1.0 K/uL Eosinophils # (Auto) 0.21 0.00-0.70 K/uL Basophils # (Auto) 0.05 0.00-0.20 K/uL Absolute Immature Granulocyte (auto 0.12 0-1 K/uL Nucleated Red Blood Cells 0.0 0.0-0.19 % Chemistry Labs: Test 07/30/24 11:50 07/30/24 05:22 Range/Units Whole Blood Glucose 278 H 70-110 MG/DL Sodium Level 129 L 136-145 mmol/L Potassium Level 3.3 L 3.5-5.1 mmol/L Chloride Level 100 L 101-111 mmol/L Carbon Dioxide Level 20 L 21-32 mmol/L Blood Urea Nitrogen 34 H 7-18 mg/dL Creatinine 1.9 H 0.5-1.3 mg/dL Glomerular Filtration Rate Calc 43 >90 mL/min Random Glucose 244 H 70-105 mg/dL Total Calcium 8.4 L 8.5-10.1 mg/dL Magnesium Level 1.70 L 1.80-2.40 mg/dL Total Bilirubin 0.2 0.2-1.0 mg/dL Aspartate Amino Transf (AST/SGOT) 24 10-37 U/L Alanine Aminotransferase (ALT/SGPT) 23 12-78 U/L Alkaline Phosphatase 249 H 50-136 U/L Total Protein 6.9 6.0-8.3 g/dL Albumin 1.0 L 3.5-5.0 g/dL Coagulation Labs: Test 07/29/24 15:03 Range/Units Prothrombin Time 12.7 H 9.6-11.6 SEC Prothromb Time International Ratio 1.22 H 0.85-1.15 Activated Partial Thromboplast Time 37.8 H 26.3-35.5 SEC REASON: testicular pain and swelling ORDERING PHYSICIAN: JACQUELYN GIBBS BRAZER INDUCTION PROCEDURE: SCROTUM - US SCROTUM & CONTENTS US SCROTUM & CONTENTS HISTORY: Testicular pain COMPARISON: None TECHNIQUE: Duplex scrotal ultrasound study was performed. FINDINGS: The right testes measures 3.6 x 1.4 x 2.7 cm. The left testes measures 3.5 x 1.6 x 2 cm. No evidence of intratesticular mass or abnormal calcification is seen. Normal flow is demonstrated in the left testes and left epididymis. There is left epididymal cyst measuring 3 mm. Hypoechoic focus is seen in the epididymal head with adjacent vascularity measuring 4.3 x 1.9 x 3.8 cm at the inferior aspect of the left testes. Slight increased flow is seen of the right testes and right epididymis suspicious for right epididymal orchitis. No hydroceles or varicocele is seen. IMPRESSION: 1. Findings may be related to mild right epididymal orchitis. DICTATED BY: BRIAN LUBIN MD DATE: 07/27/24901 ASSESSMENT: Acute on chronic renal failure Nephrotic syndrome Anemia Metabolic acidosis Right testicular clear cellulitis Urinary retention S/p Thomas catheter Electrolyte derangement Coronary artery disease Uncontrolled Diabetes mellitus type 2 Hyperlipidemia PAD S/p left AKA Severe protein calorie malnutrition Obesity PLAN: Labs, diagnostic, radiologic exams reviewed and interpreted by myself and supervising physician. We have reviewed external records in detail Discontinue IV fluids. Require close monitoring of renal function and electrolytes Order CBC, CMP, serum osmolality, and electrolytes in am Continue with antibiotics Renal diabetic diet BiPAP as necessary, for respiratory distress Monitor blood pressure adjust medication doses as needed Avoid hypotensive episodes May use Dilaudid 0.5 mg IV every 6 hours as needed for severe pain Monitor blood sugars Strict intake, output, and daily weight should be monitored Please renally adjust medications Avoid nephrotoxic and nonsteroidal drugs Avoid contrast if possible Will continue to monitor renal function, anemia, electrolytes Treatment plan discussed with patient Questions were answered We have discussed with the other team physicians in detail about the care plan We will continue to monitor the patient closely ATTESTATION BY PHYSICIAN I have seen and examined the patient. I reviewed the documentation, medical decision making, and treatment plan as noted by the mid-level provider above. I agree with the findings and plan of care. KRUPA MANDEL MD, [facility] Jul 30, 2024 16:02
[2024-07-30 16:13] LABS: HEMOGLOBIN A1C 13.9 % (4.0-6.0)
[2024-07-30 16:40] LABS: CHOLESTEROL 82 mg/dL (<200); HDL CHOLESTEROL 28 mg/dL (29-71); LDL DIRECT 44 mg/dL (0-99); TRIGLYCERIDES 118 mg/dL (30-200)
[2024-07-30] MEDS: INSULIN GLARgine 100 UNITS/ML 10 ML VIAL SQ SCH (20:29)
--- NOTE | 2024-07-30 22:45 | CONS ---
REQUESTING PHYSICIAN: Laith Martinez MD REASON FOR CONSULTATION: Right epididymal orchitis. HISTORY OF PRESENT ILLNESS: A 49-year-old morbidly obese male, who presents to the emergency room with a 4-day history of right scrotal swelling with pain. Imaging studies including ultrasound at that time reveals slight increase in flow in the epididymis with some swelling consistent with epididymal orchitis. The patient admitted to the hospital with white count of 16 and placed on antibiotics of doxycycline and Rocephin. The patient's white count has improved to about 13,000 from 16,000; however, swelling and pain is still present and this is confirmed on his repeat ultrasound. The patient encountered lying in bed comfortably with Thomas catheter in place, draining clear urine. The patient is status post BKA on the left due to peripheral vascular disease complications. Denies any exposure to sexually transmitted disease. ALLERGIES: None. MEDICATIONS: His current antibiotics include Rocephin and doxycycline. Other medications include metformin, famotidine, aspirin, docusate and sennoside, lisinopril as well as gabapentin. PAST MEDICAL HISTORY: Diabetes, hypercholesterolemia, coronary artery disease, hypertension, and peripheral vascular disease. PAST SURGICAL HISTORY: Cholecystectomy as well as BKA and coronary artery stent placement. FAMILY HISTORY: Negative for kidney stones. SOCIAL HISTORY: The patient is disabled. Does not smoke or drink. REVIEW OF SYSTEMS: No shortness of breath, no chest pain. Appetite is good. No nausea, vomiting, constipation or diarrhea. No headaches, dizziness or nosebleeds. PHYSICAL EXAMINATION: GENERAL: Obese male, disabled, no distress. VITAL SIGNS: Temperature is 98, blood pressure is 140/80 with a pulse of 82. NECK: Has no adenopathy or supraclavicular masses palpable. LUNGS: Clark clear to auscultation and percussion. HEART: Sounds are best heard in the fifth intercostal space. ABDOMEN: Obese, soft, nontender. BACK: No CVA tenderness. EXTERNAL GENITALIA: Phallus free of any lesions. Thomas catheter in place, draining clear urine. Left testicle descended and normal. The right one is replaced by painful epididymal mass with reactive hydrocele. RECTAL: Patent anus. LABORATORY DATA: The patient's laboratory data are reviewed in detail. Glucose is 249. Urine culture shows no growth. Blood culture, no growth. INR 1.2. Sodium 135, potassium 3.7. BUN and creatinine are 8.4/2.0. The patient's white count is down to 13 with a hematocrit of 36, platelet count is 126. Additional medications received in the emergency room, Zofran, vancomycin. He also received a dose of Zosyn. IMAGING STUDIES: Reviewed today include an ultrasound done today and one done on July 27. ASSESSMENT: * Epididymal orchitis, left side, improving, but not resolved. * Peripheral vascular disease. * Renal insufficiency. RECOMMENDATIONS: * To stop his Rocephin and place on meropenem 1 gram every 8 hours. * Continue doxycycline. * Scrotal support. * Ice pack to scrotum. * We will continue to monitor closely. The patient's renal insufficiency makes it impossible for him to have nonsteroidal anti-inflammatories and so ultimately may require a short course of steroids with a Medrol Dosepak. The patient's concerns were answered. Thank you for the opportunity for providing consultation on your patient. TID: [id number] RECEIPT: [id number]
[2024-07-31] VITALS (8 sets, daily range): BP systolic 129–142; BP diastolic 60–79; PULSE 76–83; RESP 18–20; TEMP 98–98.6; O2SAT 96–97
[2024-07-31 06:15] LABS: BASOPHILS # (AUTO) 0.05 K/uL (0.00-0.20); BASOPHILS % (AUTO) 0.3 % (0.0-5.0); EOSINOPHILS # (AUTO) 0.26 K/uL (0.00-0.70); EOSINOPHILS % (AUTO) 1.5 % (0.0-8.0); HEMATOCRIT 23.2 % (42-54); IMMATURE GRANULOCYTE ABSOLUTE 0.16 K/uL (0-1); LYMPHOCYTES # (AUTO) 2.8 K/uL (1.0-4.8); MEAN CORPUSCULAR HEMOGLOBIN 23.6 pg (27.0-33.0); MEAN CORPUSCULAR VOLUME 76.1 fL (79-99); MONOCYTES # (AUTO) 1.2 K/uL (0.1-1.0); MONOCYTES % (AUTO) 6.8 % (3.0-13.0); NEUTROPHILS # (AUTO) 12.9 K/uL (1.8-7.7); NEUTROPHILS % (AUTO) 74.5 % (40.0-77.0); PLATELET COUNT (AUTO) 601 K/uL (130-400); RED BLOOD CELL COUNT(AUTO) 3.05 MIL/uL (4.50-6.20); RED CELL DISTRIBUTION WIDTH 14.3 % (11.0-15.5); WHITE BLOOD COUNT (AUTO) 17.3 K/uL (4.8-10.8)
[2024-07-31 06:27] LABS: BILIRUBIN,TOTAL 0.2 mg/dL (0.2-1.0); CREATININE 1.9 mg/dL (0.5-1.3); MAGNESIUM 1.8 mg/dL (1.80-2.40); POTASSIUM 3.5 mmol/L (3.5-5.1); TOTAL PROTEIN, SERUM 6.9 g/dL (6.0-8.3)
[2024-07-31] MEDS: MAGNESIUM 2GM PREMIX 50ML 50 ML IV SCH (08:45)
--- NOTE | 2024-07-31 09:02 | PN ---
[facility] PROGRESS NOTE Date of Service: Jul 31, 2024 Time of Service: 08:54 SUBJECTIVE: [ ] This is a 49-year-old that was admitted early this morning with chief complaints of testicular cellulitis. Patient is fully awake alert oriented x3 patient has a Thomas catheter secondary to urinary retention were being urology started patient on Flomax. Patient has no history of urinary retention. GEOVANNI on this admission computer networking instructor following. Patient has a history of nephrotic syndrome we will discontinue vancomycin and Zosyn. 07/28/24 patient is seen patient has been having temperature T-max 100.9 and leukocytosis being followed by infectious disease. Patient is fully awake alert oriented x3 07/29/24 patient appears to be doing better however continues with low-grade temp ID following for antibiotics stewardship. Leukocytosis trending down slowly. Right testicle erythema and swollen , tender to palpate. continue with indwelling catheter tender to. RN reached out to Urology pending consult. 07/30/24 we repeat ultrasound testicular pending results. Leukocytosis is persistent however is afebrile and on empiric antibiotics. The patient offers no new complaints. 07/31/2024 patient is lying in bed patient was encouraged to get out of bed to chair as tolerated. Primary nurse reports scrotal abscess is now draining and cultures were collected. Patient continues with leukocytosis ID following on empiric antibiotics. Urology recommending Merrem we will see what ID if patient is a candidate for Merrem. No fevers last night tolerating antibiotics reports no diarrhea. REVIEW OF SYSTEMS CONSTITUTIONAL: Denies fevers, chills, or night sweats. No unintentional weight loss reported. NEUROLOGICAL: Denies headache, amaurosis fugax, motor weakness, sensory deficit, vertigo/spinning sensation, gait abnormalities, or tremors. 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 CARDIOVASCULAR: Denies any exertional angina, dyspnea on exertion, orthopnea, paroxysmal nocturnal dyspnea, palpitations, life-threatening arrhythmias, claudication. PULMONARY: Denies any shortness of breath, cough, phlegm/sputum, hemoptysis, pleuritic chest pain. SLEEP: Denies morning headaches, daytime somnolence or napping. Denies difficulty falling asleep, staying asleep, waking from sleep. Denies knowledge of snoring. GASTROINTESTINAL: Denies any type of dysphagia to either liquids or solids. Denies nausea, vomiting, pyrosis, early satiety, abdominal pain, diarrhea, con stipation, or changes in stool consistency or caliber. Denies coffee-ground emesis, hematemesis, hematochezia, or melanotic stools. GENITOURINARY: Denies frequency, urgency, nocturia, hematuria or incontinence (Storage/Irritative symptoms.) Low urinary stream, straining to void, urinary intermittency or hesitancy, splitting of the voiding stream, terminal dribbling. ENDOCRINOLOGIC: Denies polyuria, polydipsia, polyphagia or heat/cold intolerances. HEMATOLOGIC: Denies thrombophilia/previous clots, or coagulopathy/bleeding disorders. ONCOLOGIC: Denies personal history of malignancy. DERMATOLOGIC: Denies rashes or pruritus. PSYCHIATRIC: Denies any suicidal or homicidal ideation. Denies hallucinations. PHYSICAL EXAM GENERAL APPEARANCE: The patient is awake, alert, and oriented, in no acute card iopulmonary distress. NEUROLOGICAL: Cranial nerves II-XII grossly intact. Motor is 5/5 in bilateral upper and lower extremities proximal to distal. No sensory deficits. HEENT: Face is symmetric. Pupils are equal and reactive. Extraocular movements are intact. NECK: Supple. No JVD. No thyromegaly. No submental, submandibular, pre- /postauricular, occipital or supraclavicular lymphadenopathy. CHEST: Normal chest expansion. No Telemetry. LUNGS: Absence of any rales, rhonchi or any wheezing. CARDIOVASCULAR: Regular. S1 and S2 normal. No appreciable rubs, murmurs or gallops. ABDOMEN: Soft, nontender, and nondistended. There is no rebound, voluntary guarding, or rigidity. : Deferred. No Thomas. EXTREMITIES: Non-edematous and not cyanotic. No clubbing. Good capillary refill. SKIN: Swollen testicles Vital Signs (last 8hr) Date Time Temp Pulse Resp B/P (MAP) Pulse Ox O2 Delivery O2 Flow Rate FiO2 07/31/24 07:54 98.1 79 18 136/70 95 Room Air 07/31/24 04:00 98.4 82 20 133/73 96 Room Air LABS: Laboratory: Test 07/31/24 05:44 07/31/24 05:24 07/30/24 16:53 07/30/24 05:22 Range/Units White Blood Count 17.3 H 4.8-10.8 K/uL Red Blood Count 3.05 L 4.50-6.20 MIL/uL Hemoglobin 7.2 L 14.0-18.0 g/dL Hematocrit 23.2 L 42-54 % Mean Corpuscular Volume 76.1 L 79-99 fL Mean Corpuscular Hemoglobin 23.6 L 27.0-33.0 pg Mean Corpuscular Hemoglobin Concent 31.0 L 32.0-36.0 g/dL Red Cell Distribution Width 14.3 11.0-15.5 % Platelet Count 601 H 130-400 K/uL Mean Platelet Volume 9.7 7.5-10.5 fL Immature Granulocyte % (Auto) 0.9 0-1 % Neutrophils (%) (Auto) 74.5 40.0-77.0 % Lymphocytes (%) (Auto) 16.0 L 21.0-51.0 % Monocytes (%) (Auto) 6.8 3.0-13.0 % Eosinophils (%) (Auto) 1.5 0.0-8.0 % Basophils (%) (Auto) 0.3 0.0-5.0 % Neutrophils # (Auto) 12.9 H 1.8-7.7 K/uL Lymphocytes # (Auto) 2.8 1.0-4.8 K/uL Monocytes # (Auto) 1.2 H 0.1-1.0 K/uL Eosinophils # (Auto) 0.26 0.00-0.70 K/uL Basophils # (Auto) 0.05 0.00-0.20 K/uL Absolute Immature Granulocyte (auto 0.16 0-1 K/uL Nucleated Red Blood Cells 0.0 0.0-0.19 % Sodium Level 131 L 136-145 mmol/L Potassium Level 3.5 3.5-5.1 mmol/L Chloride Level 100 L 101-111 mmol/L Carbon Dioxide Level 21 21-32 mmol/L Blood Urea Nitrogen 38 H 7-18 mg/dL Creatinine 1.9 H 0.5-1.3 mg/dL Glomerular Filtration Rate Calc 43 >90 mL/min Random Glucose 388 H 70-105 mg/dL Total Calcium 8.2 L 8.5-10.1 mg/dL Magnesium Level 1.80 1.80-2.40 mg/dL Total Bilirubin 0.2 0.2-1.0 mg/dL Aspartate Amino Transf (AST/SGOT) 27 10-37 U/L Alanine Aminotransferase (ALT/SGPT) 28 12-78 U/L Alkaline Phosphatase 243 H 50-136 U/L C-Reactive Protein, Quantitative 145.60 H 0.5-3.0 mg/L Total Protein 6.9 6.0-8.3 g/dL Albumin 1.0 L 3.5-5.0 g/dL Whole Blood Glucose 366 H 70-110 MG/DL Ammonia 14 11-32 umol/L Hemoglobin A1c 13.9 H 4.0-6.0 % Estimated Average Glucose (eAG) 352 H 70-126 mg/dL Serum Osmolality 292 278-305 mOsm/kg Uric Acid 6.5 2.6-7.2 mg/dL Triglycerides Level 118 30-200 mg/dL Cholesterol Level 82 <200 mg/dL LDL Cholesterol 44 0-99 mg/dL HDL Cholesterol 28 L 29-71 mg/dL Vitamin B12 Level 1392 H 193-986 pg/mL Vitamin D 25-Hydroxy 5.2 30.0-100.0 ng/mL Thyroid Stimulating Hormone (TSH) 1.55 # 0.36-3.74 uIU/mL Test 07/29/24 15:03 Range/Units Prothrombin Time 12.7 H 9.6-11.6 SEC Prothromb Time International Ratio 1.22 H 0.85-1.15 Activated Partial Thromboplast Time 37.8 H 26.3-35.5 SEC Current Medications Medications (Trade) Dose Ordered Sig/Gaby Route PRN Reason Start Time Stop Time Status Last Admin Dose Admin Acetaminophen (TYLenol 325MG TAB) 650 mg Q4H PRN PO MILD PAIN (1-3) 07/27/24 02:30 08/26/24 02:29 Acetaminophen (TYLenol 325MG TAB) 650 mg Q6H PRN PO TEMPERATURE GREATER THAN 101.5 07/27/24 02:30 08/26/24 02:29 07/29/24 17:35 650 MG Acetaminophen/ Hydrocodone Bitart (NORco 5/325MG) 1 tab Q6H PRN PO MODERATE PAIN (4-6) 07/27/24 02:30 08/01/24 02:29 07/30/24 15:08 1 TAB Aspirin (Aspirin 81mg Chew Tab) 81 mg AM PO 07/30/24 09:00 08/29/24 08:59 07/31/24 08:40 81 MG Atorvastatin Calcium (LIPItor 40MG) 40 mg HS PO 07/29/24 21:00 08/28/24 20:59 07/30/24 20:24 40 MG Ceftriaxone Sodium (ROCEphine 1G INJ) 1 gm Q24H IVPB 07/27/24 14:30 07/29/24 21:33 DC 07/28/24 14:22 1 GM Ceftriaxone Sodium (ROCEphine 1G INJ) 1 gm Q24H IVPB 07/29/24 22:00 08/06/24 21:59 07/30/24 20:29 1 GM Clotrimazole (Lotrimin) 1 APPL TP BID BID TP 07/29/24 21:00 08/28/24 20:59 07/30/24 20:31 1 GM Dextrose (D50w) 50 ml AD PRN IV HYPOGLYCEMIA PROTOCOL 07/27/24 04:00 08/26/24 03:59 Doxycycline Hyclate 250 ml @ 125 mls/hr Q12H IV 07/27/24 16:00 07/29/24 21:35 DC 07/29/24 03:37 125 MLS/HR Doxycycline Hyclate 250 ml @ 125 mls/hr Q12H IV 07/29/24 23:59 08/06/24 23:58 07/31/24 00:36 125 MLS/HR Famotidine (Pepcid 20mg Tab) 20 mg Q48H PO 07/27/24 02:30 08/26/24 02:29 07/31/24 02:51 20 MG Ferrous Sulfate (Ferrous Sulfate) 325 mg DAILY PO 07/30/24 09:00 08/29/24 08:59 07/31/24 08:41 325 MG Gabapentin (NEURontin 100 mg CAP) 100 mg BID PO 07/29/24 21:00 08/28/24 20:59 07/31/24 08:41 100 MG Glucagon (Glucagon 1mg Kit) 1 mg AD PRN IM HYPOGLYCEMIA PROTOCOL 07/27/24 04:00 08/26/24 03:59 Home Med (Home Medication) DAPAGLIFLOZIN 5MG TAB DAILY PO 07/30/24 09:00 08/29/24 08:59 Hydromorphone HCl (DiLAUDid 0.5MG INJ) 0.5 mg Q3H3 PRN IVP SEVERE PAIN (7-10) 07/27/24 13:30 08/01/24 13:29 07/31/24 05:57 0.5 MG Insulin Glargine (LANtus 100 UNITS/ML 10 ML VIAL) 12 units HS SQ 07/30/24 21:00 08/29/24 20:59 07/30/24 20:29 12 UNITS Insulin Human Regular (humuLIN R 100 UNIT/ML 3ML) INSULIN SLIDING SCAL... ACHS SQ 07/27/24 07:30 08/26/24 07:29 07/31/24 05:58 8 UNIT Lactulose (Constulose 20gm/ 30ml Udcup) 20 gm BID PRN PO CONSTIPATION 07/30/24 08:30 08/29/24 08:29 07/30/24 09:00 20 GM Magnesium Sulfate 50 ml @ 0 mls/hr PROTOCOL IV 07/27/24 10:00 07/27/24 13:42 DC Magnesium Sulfate 50 ml @ 0 mls/hr PROTOCOL IV 07/27/24 14:00 07/30/24 08:49 DC 07/30/24 06:27 25 MLS/HR Magnesium Sulfate 50 ml @ 0 mls/hr PROTOCOL IV 07/30/24 09:00 08/29/24 08:59 07/31/24 08:45 25 MLS/HR Magnesium Sulfate 50 ml @ 0 mls/hr PROTOCOL PRN IV OTHER [SEE ORDER COMMENTS] 07/27/24 04:00 07/27/24 13:42 DC 07/27/24 07:59 12.5 MLS/HR Ondansetron HCl (zoFRAN 4MG INJ) 4 mg Q6H PRN IV NAUSEA/VOMITING 07/27/24 02:30 08/26/24 02:29 Piperacillin Sod/ Tazobactam Sod 50 ml @ 12.5 mls/hr Q8H IV 07/27/24 05:00 07/27/24 14:15 DC 07/27/24 12:14 12.5 MLS/HR Potassium Chloride 100 ml @ 100 mls/hr AD PRN IV POTASSIUM PROTOCOL 07/27/24 04:00 08/26/24 03:59 Potassium Chloride (K-Dur 10meq Sr Tab) 10 meq AD PRN PO POTASSIUM PROTOCOL 07/30/24 06:30 08/26/24 03:59 07/31/24 08:40 10 MEQ Potassium Chloride (K-Dur/Klor-Con 20meq) 10 meq AD PRN PO POTASSIUM PROTOCOL 07/27/24 04:00 07/30/24 06:22 DC 07/29/24 08:07 10 MEQ Potassium Chloride (KCl 10% Elixir 20meq/15ml) 10 meq AD PRN PO POTASSIUM PROTOCOL 07/27/24 04:00 08/26/24 03:59 Sodium Bicarbonate (Sodium Bicarbonate) 650 mg TID PRN PO INDIGESTION 07/27/24 12:00 08/26/24 11:59 Sodium Chloride 1,000 ml @ 100 mls/hr Q10H IV 07/27/24 03:30 07/30/24 15:05 DC 07/30/24 12:31 100 MLS/HR Tamsulosin HCl (FloMAX) 0.4 mg DAILY PO 07/28/24 09:00 08/27/24 08:59 07/31/24 08:40 0.4 MG Vancomycin HCl 250 ml @ 125 mls/hr ONCE IV 07/27/24 02:30 07/27/24 02:32 DC Vancomycin HCl 250 ml @ 125 mls/hr Q24H IV 07/28/24 01:00 07/27/24 14:15 DC Vancomycin HCl (Vancomycin Protocol) 1 each AD IV 07/27/24 00:00 07/27/24 14:21 DC Vitamin B Complex/ Vit C/Folic Acid (Nephrovite Tablet) 1 cap DAILY PO 07/28/24 09:00 08/27/24 08:59 07/31/24 08:40 1 CAP DIAGNOSTICS / RADIOLOGY: [ ] ASSESSMENT: Epididymal orchitis, left side with abscess, POA Right testicular cellulitis POA Urinary retention requiring Thomas catheter POA Acute kidney injury with CKD POA Hypertension POA Acute leukocytosis POA Microcytic hypochromic anemia iron deficiency POA Acute thrombocytosis POA Uncontrolled diabetes POA Hyperlipidemia POA Morbid Obesity POA Coronary artery disease POA Severe Protein calorie Malnutrition PAD with hx of AKA to the left side Obesity Hypoventilation Syndrome Metabolic acidosis improving electrolytes derangement: hypomagnesemia History Nephrotic syndrome functional decline POA PLAN: Admit: Medical floor condition: Guarded Status: Full IVF: NS at 75 mL/hour Consultants computer networking instructor's, Infectious Disease, Urology Antibiotics: Rocephin1 q 24 hrs doxycycline 100 mg IV b.i.d.. Persistent leukocytosis has been afebrile for 24 hours Test: Repeat US testicular noted urology is recommending Merrem IV in given to patient contraindicated to use NSAIDs due to renal failure he recommended steroids. Wound cultures scrotal drainage was sent for cultures we will follow-up Labs cbc, cmp, mag+ Inflammatory markers every other day Two sets of blood cultures on admission and later on admission have been negative We will monitor inflammatory markers Avoid NSAIDs strict I&O we will monitor renal function we will follow computer networking instructor's recommendations Thomas care Replace electrolytes as needed as per protocol to keep potassium above 4.0 magnesium 2.0. We will monitor H&H trend to keep hemoglobin above 7.0 vitamin B complex vitamin C folic acid one tablet daily. Bicarb po t.i.d. bowel regiment: lactulose 20 gm PO BID PRN constipation Pain management: Gabapentin 100 t.i.d.. [place] 5/325 p.o. as needed for pain. Supportive measures: DVT ppx, GI ppx PT services out of bed to chair Offloading self repositioning elevate scrotum with scrotal support. Supervising MD: Dr. Tato Guzman c/d This document was generated in part using voice recognition software, occasional wrong word or sound alike substitutions may have occurred due to the inherent limitations of voice recognition software. Read the chart carefully and recognize using context, where the substitutions have occurred. Although every effort was made to edit the content, bottom saw operator and typing errors may occur ATTESTATION BY PHYSICIAN I have seen and examined the patient. I reviewed the documentation, medical decision making, and treatment plan as noted by the mid-level provider above. I agree with the findings and plan of care. MIHIR HUBBARD MD, [facility] Jul 31, 2024 09:02
[2024-07-31] MEDS: INSULIN humuLIN R 100 UNIT/ML 3ML SQ ONE (12:04)
--- NOTE | 2024-07-31 12:57 | PN ---
NEPHROLOGY PROGRESS NOTE Date/Time Patient Seen: Jul 31, 2024 SUBJECTIVE: This is a 49-year-old male with a past medical history of diabetes mellitus type 2, hypertension, peripheral arterial disease with left AKA, coronary artery disease, hyperlipidemia, GERD, PAD, and obesity Patient presented to the emergency room for testicular pain and swelling Thomas in place due to urinary retention, he was seen by Urology Blood cultures has been negative Continues on antibiotics as per ID Nurse reports guarded abscess ruptured and wound cultures were sent, pending results Were consulted for renal failure. Renal function electrolytes are stable. UA positive for proteinuria. Hemoglobin noted Case management coordinating SNF placement Patient was seen in the medical floor, in no acute distress REVIEW OF SYSTEMS: GENERAL: Positive for testicular pain and swelling NEUROLOGIC: Negative for any blurry vision, blind spots, double vision, facial asymmetry, dysphagia, dysarthria, hemiparesis, hemisensory deficits, vertigo, ataxia. HEENT: Negative for any head trauma, neck trauma, neck stiffness, photophobia, phonophobia, sinusitis, rhinitis. CARDIAC: Negative for any chest pain, dyspnea on exertion, paroxysmal nocturnal dyspnea, peripheral edema. PULMONARY: Negative for any shortness of breath, wheezing, COPD, or TB exposure. GASTROINTESTINAL: Negative for any abdominal pain, nausea, vomiting, bright red blood per rectum, melena. GENITOURINARY: Negative for any dysuria, hematuria, incontinence. INTEGUMENTARY: Negative for any rashes, cuts, insect bites. RHEUMATOLOGIC: Negative for any joint pains, photosensitive rashes, history of vasculitis or kidney problems. HEMATOLOGIC: Negative for any abnormal bruising, frequent infections or bleeding. PHYSICAL EXAM: GENERAL: Alert and oriented x 3. No acute distress. Well-nourished. EYES: EOMI. Anicteric. HENT: Moist mucous membranes. No scleral icterus. No cervical lymphadenopathy. LUNGS: Clear to auscultation bilaterally. No accessory muscle use. CARDIOVASCULAR: Regular rate and rhythm. No murmur. No JVD. ABDOMEN: Soft, non-tender and non-distended. No palpable masses. EXTREMITIES: 2+ edema. Non-tender. SKIN: No rashes or lesions. Warm. NEUROLOGIC: No focal neurological deficits. CN II-XII grossly intact, but not individually tested. PSYCHIATRIC: Cooperative. Appropriate mood and affect. LABORATORY: [ ] Hematology Labs: Test 07/31/24 05:44 Range/Units White Blood Count 17.3 H 4.8-10.8 K/uL Red Blood Count 3.05 L 4.50-6.20 MIL/uL Hemoglobin 7.2 L 14.0-18.0 g/dL Hematocrit 23.2 L 42-54 % Mean Corpuscular Volume 76.1 L 79-99 fL Mean Corpuscular Hemoglobin 23.6 L 27.0-33.0 pg Mean Corpuscular Hemoglobin Concent 31.0 L 32.0-36.0 g/dL Red Cell Distribution Width 14.3 11.0-15.5 % Platelet Count 601 H 130-400 K/uL Mean Platelet Volume 9.7 7.5-10.5 fL Immature Granulocyte % (Auto) 0.9 0-1 % Neutrophils (%) (Auto) 74.5 40.0-77.0 % Lymphocytes (%) (Auto) 16.0 L 21.0-51.0 % Monocytes (%) (Auto) 6.8 3.0-13.0 % Eosinophils (%) (Auto) 1.5 0.0-8.0 % Basophils (%) (Auto) 0.3 0.0-5.0 % Neutrophils # (Auto) 12.9 H 1.8-7.7 K/uL Lymphocytes # (Auto) 2.8 1.0-4.8 K/uL Monocytes # (Auto) 1.2 H 0.1-1.0 K/uL Eosinophils # (Auto) 0.26 0.00-0.70 K/uL Basophils # (Auto) 0.05 0.00-0.20 K/uL Absolute Immature Granulocyte (auto 0.16 0-1 K/uL Nucleated Red Blood Cells 0.0 0.0-0.19 % Chemistry Labs: Test 07/31/24 10:47 07/31/24 05:44 07/30/24 16:53 07/30/24 05:22 Range/Units Whole Blood Glucose 357 H 70-110 MG/DL Sodium Level 131 L 136-145 mmol/L Potassium Level 3.5 3.5-5.1 mmol/L Chloride Level 100 L 101-111 mmol/L Carbon Dioxide Level 21 21-32 mmol/L Blood Urea Nitrogen 38 H 7-18 mg/dL Creatinine 1.9 H 0.5-1.3 mg/dL Glomerular Filtration Rate Calc 43 >90 mL/min Random Glucose 388 H 70-105 mg/dL Total Calcium 8.2 L 8.5-10.1 mg/dL Magnesium Level 1.80 1.80-2.40 mg/dL Total Bilirubin 0.2 0.2-1.0 mg/dL Aspartate Amino Transf (AST/SGOT) 27 10-37 U/L Alanine Aminotransferase (ALT/SGPT) 28 12-78 U/L Alkaline Phosphatase 243 H 50-136 U/L C-Reactive Protein, Quantitative 145.60 H 0.5-3.0 mg/L Total Protein 6.9 6.0-8.3 g/dL Albumin 1.0 L 3.5-5.0 g/dL Procalcitonin 0.37 0.05-0.5 ng/mL Ammonia 14 11-32 umol/L Hemoglobin A1c 13.9 H 4.0-6.0 % Estimated Average Glucose (eAG) 352 H 70-126 mg/dL Serum Osmolality 292 278-305 mOsm/kg Uric Acid 6.5 2.6-7.2 mg/dL Triglycerides Level 118 30-200 mg/dL Cholesterol Level 82 <200 mg/dL LDL Cholesterol 44 0-99 mg/dL HDL Cholesterol 28 L 29-71 mg/dL Vitamin B12 Level 1392 H 193-986 pg/mL Vitamin D 25-Hydroxy 5.2 30.0-100.0 ng/mL Thyroid Stimulating Hormone (TSH) 1.55 # 0.36-3.74 uIU/mL Coagulation Labs: Test 07/29/24 15:03 Range/Units Prothrombin Time 12.7 H 9.6-11.6 SEC Prothromb Time International Ratio 1.22 H 0.85-1.15 Activated Partial Thromboplast Time 37.8 H 26.3-35.5 SEC Diagnostic REASON: testicular pain and swelling ORDERING PHYSICIAN: JACQUELYN GIBBS PROCEDURE: SCROTUM - US SCROTUM & CONTENTS US SCROTUM & CONTENTS HISTORY: Testicular pain COMPARISON: None TECHNIQUE: Duplex scrotal ultrasound study was performed. FINDINGS: The right testes measures 3.6 x 1.4 x 2.7 cm. The left testes measures 3.5 x 1.6 x 2 cm. No evidence of intratesticular mass or abnormal calcification is seen. Normal flow is demonstrated in the left testes and left epididymis. There is left epididymal cyst measuring 3 mm. Hypoechoic focus is seen in the epididymal head with adjacent vascularity measuring 4.3 x 1.9 x 3.8 cm at the inferior aspect of the left testes. Slight increased flow is seen of the right testes and right epididymis suspicious for right epididymal orchitis. No hydroceles or varicocele is seen. IMPRESSION: 1. Findings may be related to mild right epididymal orchitis. DICTATED BY: BRIAN LUBIN MD DATE: 07/27/24901 ASSESSMENT: Acute on chronic renal failure Nephrotic syndrome Anemia Metabolic acidosis Right testicular clear cellulitis Urinary retention S/p Thomas catheter Electrolyte derangement Coronary artery disease Uncontrolled Diabetes mellitus type 2 Hyperlipidemia PAD S/p left AKA Severe protein calorie malnutrition Obesity PLAN: Labs, diagnostic, radiologic exams reviewed and interpreted by myself and supervising physician. We have reviewed external records in detail Require close monitoring of renal function and electrolytes Order CBC, CMP, serum osmolality, and electrolytes in am Continue with antibiotics Renal diabetic diet BiPAP as necessary, for respiratory distress Monitor blood pressure adjust medication doses as needed Avoid hypotensive episodes May use Dilaudid 0.5 mg IV every 6 hours as needed for severe pain Monitor blood sugars Strict intake, output, and daily weight should be monitored Please renally adjust medications Avoid nephrotoxic and nonsteroidal drugs Avoid contrast if possible Will continue to monitor renal function, anemia, electrolytes Treatment plan discussed with patient Questions were answered We have discussed with the other team physicians in detail about the care plan We will continue to monitor the patient closely ATTESTATION BY PHYSICIAN I have seen and examined the patient. I reviewed the documentation, medical decision making, and treatment plan as noted by the mid-level provider above. I agree with the findings and plan of care. KRUPA MANDEL MD, [facility] Jul 31, 2024 12:57
[2024-07-31] MEDS: MEROPENEM 1GM 1 GM VIAL IVPB SCH (15:51)
--- NOTE | 2024-07-31 19:39 | NUR ---
[facility] TODAY DR. SUMMERS ROUNDED, HE ASKED WHAT WE WERE DOING WITH 317. I INFORMED HIM THAT THE PATIENTS SCROTUM HAD DRAINED AND THAT THE PATIENT WAS ON ROCEPHIN AND DOXY. HE ASKED WHY THE MERREM WASN'T ON TO WHICH I RESPONDED THAT PER EARL ALFONSO THEY HADN'T ORDERED IT BECAUSE HE DIDN'T AGREE WITH THE RECOMMENDATION OF DR. BLACKWELL AND THAT THE PATIENT DIDN'T MEET CRITERIA PER PHARMACY POLICY. HE STATED THAT HE NEVER SAID HE DIDN'T AGREE. HE STATED THAT HE HAD TOLD THE NURSE THAT SHE COULD DC THE ROCEPHIN AND ADD THE MERREM UNDER DR. BLACKWELL. HE TOLD ME TO MAKE SURE THE ORDER FOR THE MERREM WAS STARTED TODAY UNDER DR. BLACKWELL AND THAT THE ROCEPHIN COULD BE STOPPED. I THEN HAD TO CALL PHARMACY REGARDING THE [facility] POLICY, THEY FAXED ME THE PAPERWORK. I WROTE WHAT DR. SUMMERS HAD STATED WHICH WAS THE PATIENT HAD A SCROTAL WALL ABSCESS AND EPIDIYMAL ORCHITIS AND I NOTIFIED SAROJ THE PHARMACIST THAT DR. SUMMERS WAS IN AGREEMENT WITH DR. STRICKLAND' RECOMMENDATION. PER SAROJ THE FORM NEEDS TO BE SIGNED BY DR. BLACKWELL TODAY WHEN HE ROUNDS TO WHICH I NOTIFIED THE NIGHT NURSE AUDI ALFONSO. DR. SUMMERS DID CALL DR. BLACKWELL AND PER DR. SUMMERS, DR. BLACKWELL STATED THAT HE'D ROUND LATER TODAY.
--- NOTE | 2024-07-31 22:46 | PN ---
INFECTIOUS DISEASE PROGRESS NOTE Date of Service: Jul 31, 2024 SUBJECTIVE: This is a 49-year-old male patient presented to the hospital with chief complaint of right testicle pain. A scrotal ultrasound done on admission showed mild right epididymo-orchitis. Patient was seen and examined at bedside in room 317. Patient is awake, alert and oriented x3. The scrotal wall abscess has open and draining purulent drainage. Dr. Summers communicated with urology on these findings. Continues with right testicular swelling and erythema. Patient's WBC remains high at 17.3. No fever, temperature is 98.6. We will continue on ceftriaxone and doxycycline. Per report patient's has been having hallucinations and pending a Psychiatrist evaluation. We will continue to monitor patient's care. PHYSICAL EXAM EYES: Anicteric. Pupils equal and reactive. Right eye blindness. HENT: No oral thrush seen, moist Oral mucosa. NECK: Supple, no JVD or thyromegaly. LUNGS: Good air entry. No rales, no rhonchi. CARDIOVASCULAR: S1, S2 regular. No murmur heard. ABDOMEN: Soft, non tender, bowel sounds present, no organomegaly. CENTRAL NERVOUS SYSTEM: Awake, alert, oriented x 3. SKIN: No rashes, no swelling. LYMPHATICS: No peripheral lymphadenopathy. MUSCULOSKELETAL: No joint swelling, erythema or tenderness. EXTREMITIES: No cyanosis or clubbing. 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 BACK: No deformity, no pressure ulcer. GENITOURINARY: No dysuria or hematuria. Thomas catheter. SCROTUM: Swelling and erythema. Vital Sign (Last 12 Hours) 07/31/24 07/31/24 07/31/24 11:35 16:25 20:08 Temp 98.6 98.2 98.2 Pulse 81 76 77 Resp 18 18 19 B/P (MAP) 129/60 132/68 141/78 Pulse Ox 94 95 96 O2 Delivery Room Air Room Air Room Air Intake & Output (last 24hrs) 07/30/24 07/30/24 07/31/24 15:00 23:00 07:00 Intake Total 300.0 ml Output Total 1100 ml 1300 ml 2400 ml Balance -1100 ml -1300 ml -2100.0 ml LABS: Laboratory: Test 07/31/24 19:32 07/31/24 05:44 07/30/24 16:53 07/30/24 05:22 Range/Units Whole Blood Glucose 288 H 70-110 MG/DL White Blood Count 17.3 H 4.8-10.8 K/uL Red Blood Count 3.05 L 4.50-6.20 MIL/uL Hemoglobin 7.2 L 14.0-18.0 g/dL Hematocrit 23.2 L 42-54 % Mean Corpuscular Volume 76.1 L 79-99 fL Mean Corpuscular Hemoglobin 23.6 L 27.0-33.0 pg Mean Corpuscular Hemoglobin Concent 31.0 L 32.0-36.0 g/dL Red Cell Distribution Width 14.3 11.0-15.5 % Platelet Count 601 H 130-400 K/uL Mean Platelet Volume 9.7 7.5-10.5 fL Immature Granulocyte % (Auto) 0.9 0-1 % Neutrophils (%) (Auto) 74.5 40.0-77.0 % Lymphocytes (%) (Auto) 16.0 L 21.0-51.0 % Monocytes (%) (Auto) 6.8 3.0-13.0 % Eosinophils (%) (Auto) 1.5 0.0-8.0 % Basophils (%) (Auto) 0.3 0.0-5.0 % Neutrophils # (Auto) 12.9 H 1.8-7.7 K/uL Lymphocytes # (Auto) 2.8 1.0-4.8 K/uL Monocytes # (Auto) 1.2 H 0.1-1.0 K/uL Eosinophils # (Auto) 0.26 0.00-0.70 K/uL Basophils # (Auto) 0.05 0.00-0.20 K/uL Absolute Immature Granulocyte (auto 0.16 0-1 K/uL Nucleated Red Blood Cells 0.0 0.0-0.19 % Sodium Level 131 L 136-145 mmol/L Potassium Level 3.5 3.5-5.1 mmol/L Chloride Level 100 L 101-111 mmol/L Carbon Dioxide Level 21 21-32 mmol/L Blood Urea Nitrogen 38 H 7-18 mg/dL Creatinine 1.9 H 0.5-1.3 mg/dL Glomerular Filtration Rate Calc 43 >90 mL/min Random Glucose 388 H 70-105 mg/dL Total Calcium 8.2 L 8.5-10.1 mg/dL Magnesium Level 1.80 1.80-2.40 mg/dL Total Bilirubin 0.2 0.2-1.0 mg/dL Aspartate Amino Transf (AST/SGOT) 27 10-37 U/L Alanine Aminotransferase (ALT/SGPT) 28 12-78 U/L Alkaline Phosphatase 243 H 50-136 U/L C-Reactive Protein, Quantitative 145.60 H 0.5-3.0 mg/L Total Protein 6.9 6.0-8.3 g/dL Albumin 1.0 L 3.5-5.0 g/dL Procalcitonin 0.37 0.05-0.5 ng/mL Ammonia 14 11-32 umol/L Hemoglobin A1c 13.9 H 4.0-6.0 % Estimated Average Glucose (eAG) 352 H 70-126 mg/dL Serum Osmolality 292 278-305 mOsm/kg Uric Acid 6.5 2.6-7.2 mg/dL Triglycerides Level 118 30-200 mg/dL Cholesterol Level 82 <200 mg/dL LDL Cholesterol 44 0-99 mg/dL HDL Cholesterol 28 L 29-71 mg/dL Vitamin B12 Level 1392 H 193-986 pg/mL Vitamin D 25-Hydroxy 5.2 30.0-100.0 ng/mL Thyroid Stimulating Hormone (TSH) 1.55 # 0.36-3.74 uIU/mL ASSESSMENT: Right epididymo-orchitis Scrotal wall cellulitis. Urinary tract infection. Leukocytosis. Acute renal failure. Diabetes mellitus. PLAN: Continue ceftriaxone. Continue doxycycline. Continue GI prophylaxis. Continue pain management. Continue monitoring glucose levels. We will follow up on the culture results. Urology has been consulted.. This case was reviewed and discussed with my supervising physician and the above assessment and plan was formulated and agreed upon. ATTESTATION BY PHYSICIAN I have seen and examined the patient. I reviewed the documentation, medical decision making, and treatment plan as noted by the mid-level provider above. I agree with the findings and plan of care. GRANT SUMMERS MD, [facility] Jul 31, 2024 22:46
[2024-08-01] VITALS (29 sets, daily range): BP systolic 109–156; BP diastolic 63–97; PULSE 69–88; RESP 12–20; TEMP 97.8–98.3; O2SAT 96–99
--- NOTE | 2024-08-01 03:28 | PN ---
CHIEF COMPLAINT: Right scrotal swelling. INTERVAL HISTORY: The patient had spontaneous drainage of purulent material from his right scrotum. The patient's white count is 17. The patient is on meropenem and doxycycline. The patient has been seen by Infectious Disease specialist. The patient's hematocrit is 23. PHYSICAL EXAMINATION: GENITAL: A scrotal abscess on right side. RECOMMENDATIONS: * Proceed with incision, drainage, and debridement of right scrotal abscess, possible acute on the right side. * Risks, benefits, alternatives, and potential complications and indications of procedure were discussed with the patient. * He did provide full informed consent. He will be scheduled to have this done as soon as possible. * Type and cross 2 units of packed RBCs. No guarantees are given. TID: [id number] RECEIPT: [id number]
[2024-08-01 05:24] LABS: BASOPHILS # (AUTO) 0.05 K/uL (0.00-0.20); BASOPHILS % (AUTO) 0.4 % (0.0-5.0); EOSINOPHILS # (AUTO) 0.29 K/uL (0.00-0.70); EOSINOPHILS % (AUTO) 2.5 % (0.0-8.0); HEMATOCRIT 28.4 % (42-54); IMMATURE GRANULOCYTE ABSOLUTE 0.13 K/uL (0-1); LYMPHOCYTES # (AUTO) 2.6 K/uL (1.0-4.8); LYMPHOCYTES % (AUTO) 22.4 % (21.0-51.0); MEAN CORPUSCULAR HEMOGLOBIN 23.8 pg (27.0-33.0); MONOCYTES # (AUTO) 0.7 K/uL (0.1-1.0); MONOCYTES % (AUTO) 6.3 % (3.0-13.0); NEUTROPHILS # (AUTO) 7.8 K/uL (1.8-7.7); NEUTROPHILS % (AUTO) 67.3 % (40.0-77.0); PLATELET COUNT (AUTO) 600 K/uL (130-400); RED BLOOD CELL COUNT(AUTO) 3.69 MIL/uL (4.50-6.20); RED CELL DISTRIBUTION WIDTH 14.2 % (11.0-15.5); WHITE BLOOD COUNT (AUTO) 11.6 K/uL (4.8-10.8)
[2024-08-01 05:37] LABS: ALBUMIN 1.1 g/dL (3.5-5.0); BILIRUBIN,TOTAL 0.1 mg/dL (0.2-1.0); CREATININE 1.7 mg/dL (0.5-1.3); MAGNESIUM 1.8 mg/dL (1.80-2.40); POTASSIUM 3.6 mmol/L (3.5-5.1)
--- NOTE | 2024-08-01 08:18 | PN ---
[facility] PROGRESS NOTE Date of Service: Aug 01, 2024 Time of Service: 08:11 SUBJECTIVE: [ ] This is a 49-year-old that was admitted early this morning with chief complaints of testicular cellulitis. Patient is fully awake alert oriented x3 patient has a Thomsa catheter secondary to urinary retention were being urology started patient on Flomax. Patient has no history of urinary retention. GEOVANNI on this admission satellite instruction facilitator following. Patient has a history of nephrotic syndrome we will discontinue vancomycin and Zosyn. 07/28/24 patient is seen patient has been having temperature T-max 100.9 and leukocytosis being followed by infectious disease. Patient is fully awake alert oriented x3 07/29/24 patient appears to be doing better however continues with low-grade temp ID following for antibiotics stewardship. Leukocytosis trending down slowly. Right testicle erythema and swollen , tender to palpate. continue with indwelling catheter tender to. RN reached out to Urology pending consult. 07/30/24 we repeat ultrasound testicular pending results. Leukocytosis is persistent however is afebrile and on empiric antibiotics. The patient offers no new complaints. 07/31/2024 patient is lying in bed patient was encouraged to get out of bed to chair as tolerated. Primary nurse reports scrotal abscess is now draining and cultures were collected. Patient continues with leukocytosis ID following on empiric antibiotics. Urology recommending Merrem we will see what ID if patient is a candidate for Merrem. No fevers last night tolerating antibiotics reports no diarrhea. 08/01/24 patient seen and examined. Waiting for wound cultures. Urology plan to do I and D and debridement of the right scrotal abscess with possible wound VAC. Case management for discharge planning. REVIEW OF SYSTEMS CONSTITUTIONAL: Denies fevers, chills, or night sweats. No unintentional weight loss reported. NEUROLOGICAL: Denies headache, amaurosis fugax, motor weakness, sensory deficit, vertigo/spinning sensation, gait abnormalities, or tremors. 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 CARDIOVASCULAR: Denies any exertional angina, dyspnea on exertion, orthopnea, paroxysmal nocturnal dyspnea, palpitations, life-threatening arrhythmias, claudication. PULMONARY: Denies any shortness of breath, cough, phlegm/sputum, hemoptysis, pleuritic chest pain. SLEEP: Denies morning headaches, daytime somnolence or napping. Denies difficulty falling asleep, staying asleep, waking from sleep. Denies knowledge of snoring. GASTROINTESTINAL: Denies any type of dysphagia to either liquids or solids. Denies nausea, vomiting, pyrosis, early satiety, abdominal pain, diarrhea, constipation, or changes in stool consistency or caliber. Denies coffee-ground emesis, hematemesis, hematochezia, or melanotic stools. GENITOURINARY: Denies frequency, urgency, nocturia, hematuria or incontinence (Storage/Irritative symptoms.) Low urinary stream, straining to void, urinary intermittency or hesitancy, splitting of the voiding stream, terminal dribbling. ENDOCRINOLOGIC: Denies polyuria, polydipsia, polyphagia or heat/cold intolerances. HEMATOLOGIC: Denies thrombophilia/previous clots, or coagulopathy/bleeding disorders. ONCOLOGIC: Denies personal history of malignancy. DERMATOLOGIC: Denies rashes or pruritus. PSYCHIATRIC: Denies any suicidal or homicidal ideation. Denies hallucinations. PHYSICAL EXAM GENERAL APPEARANCE: The patient is awake, alert, and oriented, in no acute cardiopulmonary distress. NEUROLOGICAL: Cranial nerves II-XII grossly intact. Motor is 5/5 in bilateral upper and lower extremities proximal to distal. No sensory deficits. HEENT: Face is symmetric. Pupils are equal and reactive. Extraocular movements are intact. NECK: Supple. No JVD. No thyromegaly. No submental, submandibular, pre- /postauricular, occipital or supraclavicular lymphadenopathy. CHEST: Normal chest expansion. No Telemetry. LUNGS: Absence of any rales, rhonchi or any wheezing. CARDIOVASCULAR: Regular. S1 and S2 normal. No appreciable rubs, murmurs or gallops. ABDOMEN: Soft, nontender, and nondistended. There is no rebound, voluntary guarding, or rigidity. : Deferred. No Thomas. EXTREMITIES: Non-edematous and not cyanotic. No clubbing. Good capillary refill. SKIN: Swollen testicles Vital Signs (last 8hr) Date Time Temp Pulse Resp B/P (MAP) Pulse Ox O2 Delivery O2 Flow Rate FiO2 3/5/25 08:00 98.2 71 19 156/77 96 Room Air 08/01/24 03:55 98.1 72 20 155/87 94 Room Air LABS: Laboratory: Test 08/01/24 05:16 08/01/24 05:06 07/31/24 05:44 07/30/24 16:53 Range/Units Whole Blood Glucose 266 H 70-110 MG/DL White Blood Count 11.6 #H 4.8-10.8 K/uL Red Blood Count 3.69 #L 4.50-6.20 MIL/uL Hemoglobin 8.8 #L 14.0-18.0 g/dL Hematocrit 28.4 #L 42-54 % Mean Corpuscular Volume 77.0 L 79-99 fL Mean Corpuscular Hemoglobin 23.8 L 27.0-33.0 pg Mean Corpuscular Hemoglobin Concent 31.0 L 32.0-36.0 g/dL Red Cell Distribution Width 14.2 11.0-15.5 % Platelet Count 600 H 130-400 K/uL Mean Platelet Volume 9.1 7.5-10.5 fL Immature Granulocyte % (Auto) 1.1 H 0-1 % Neutrophils (%) (Auto) 67.3 40.0-77.0 % Lymphocytes (%) (Auto) 22.4 21.0-51.0 % Monocytes (%) (Auto) 6.3 3.0-13.0 % Eosinophils (%) (Auto) 2.5 0.0-8.0 % Basophils (%) (Auto) 0.4 0.0-5.0 % Neutrophils # (Auto) 7.8 H 1.8-7.7 K/uL Lymphocytes # (Auto) 2.6 1.0-4.8 K/uL Monocytes # (Auto) 0.7 0.1-1.0 K/uL Eosinophils # (Auto) 0.29 0.00-0.70 K/uL Basophils # (Auto) 0.05 0.00-0.20 K/uL Absolute Immature Granulocyte (auto 0.13 0-1 K/uL Nucleated Red Blood Cells 0.0 0.0-0.19 % Sodium Level 137 136-145 mmol/L Potassium Level 3.6 3.5-5.1 mmol/L Chloride Level 105 101-111 mmol/L Carbon Dioxide Level 23 21-32 mmol/L Blood Urea Nitrogen 37 H 7-18 mg/dL Creatinine 1.7 H 0.5-1.3 mg/dL Glomerular Filtration Rate Calc 49 >90 mL/min Random Glucose 309 H 70-105 mg/dL Total Calcium 8.7 8.5-10.1 mg/dL Magnesium Level 1.80 1.80-2.40 mg/dL Total Bilirubin 0.1 #L 0.2-1.0 mg/dL Aspartate Amino Transf (AST/SGOT) 22 10-37 U/L Alanine Aminotransferase (ALT/SGPT) 29 12-78 U/L Alkaline Phosphatase 223 H 50-136 U/L Total Protein 7.0 6.0-8.3 g/dL Albumin 1.1 L 3.5-5.0 g/dL C-Reactive Protein, Quantitative 145.60 H 0.5-3.0 mg/L Procalcitonin 0.37 0.05-0.5 ng/mL Ammonia 14 11-32 umol/L Current Medications Medications (Trade) Dose Ordered Sig/Gaby Route PRN Reason Start Time Stop Time Status Last Admin Dose Admin Acetaminophen (TYLenol 325MG TAB) 650 mg Q4H PRN PO MILD PAIN (1-3) 07/27/24 02:30 08/26/24 02:29 Acetaminophen (TYLenol 325MG TAB) 650 mg Q6H PRN PO TEMPERATURE GREATER THAN 101.5 07/27/24 02:30 08/26/24 02:29 07/29/24 17:35 650 MG Acetaminophen/ Hydrocodone Bitart (NORco 5/325MG) 1 tab Q6H PRN PO MODERATE PAIN (4-6) 07/27/24 02:30 08/01/24 02:29 DC 07/30/24 15:08 1 TAB Aspirin (Aspirin 81mg Chew Tab) 81 mg AM PO 07/30/24 09:00 08/29/24 08:59 07/31/24 08:40 81 MG Atorvastatin Calcium (LIPItor 40MG) 40 mg HS PO 07/29/24 21:00 08/28/24 20:59 07/31/24 22:31 40 MG Ceftriaxone Sodium (ROCEphine 1G INJ) 1 gm Q24H IVPB 07/27/24 14:30 07/29/24 21:33 DC 07/28/24 14:22 1 GM Ceftriaxone Sodium (ROCEphine 1G INJ) 1 gm Q24H IVPB 07/29/24 22:00 08/06/24 21:59 07/31/24 22:31 1 GM Clotrimazole (Lotrimin) 1 APPL TP BID BID TP 07/29/24 21:00 08/28/24 20:59 08/01/24 08:02 1 GM Dextrose (D50w) 50 ml AD PRN IV HYPOGLYCEMIA PROTOCOL 07/27/24 04:00 08/26/24 03:59 Doxycycline Hyclate 250 ml @ 125 mls/hr Q12H IV 07/27/24 16:00 07/29/24 21:35 DC 07/29/24 03:37 125 MLS/HR Doxycycline Hyclate 250 ml @ 125 mls/hr Q12H IV 07/29/24 23:59 08/06/24 23:58 07/31/24 23:44 125 MLS/HR Famotidine (Pepcid 20mg Tab) 20 mg Q48H PO 07/27/24 02:30 08/26/24 02:29 07/31/24 02:51 20 MG Ferrous Sulfate (Ferrous Sulfate) 325 mg DAILY PO 07/30/24 09:00 08/29/24 08:59 07/31/24 08:41 325 MG Gabapentin (NEURontin 100 mg CAP) 100 mg BID PO 07/29/24 21:00 08/28/24 20:59 07/31/24 22:31 100 MG Glucagon (Glucagon 1mg Kit) 1 mg AD PRN IM HYPOGLYCEMIA PROTOCOL 07/27/24 04:00 08/26/24 03:59 Home Med (Home Medication) DAPAGLIFLOZIN 5MG TAB DAILY PO 07/30/24 09:00 08/29/24 08:59 Hydromorphone HCl (DiLAUDid 0.5MG INJ) 0.5 mg Q3H3 PRN IVP SEVERE PAIN (7-10) 07/27/24 13:30 08/01/24 13:29 07/31/24 05:57 0.5 MG Insulin Glargine (LANtus 100 UNITS/ML 10 ML VIAL) 12 units HS SQ 07/30/24 21:00 08/29/24 20:59 07/31/24 22:49 12 UNITS Insulin Human Regular (humuLIN R 100 UNIT/ML 3ML) INSULIN SLIDING SCAL... ACHS SQ 07/27/24 07:30 08/26/24 07:29 08/01/24 06:51 5 UNIT Lactulose (Constulose 20gm/ 30ml Udcup) 20 gm BID PRN PO CONSTIPATION 07/30/24 08:30 08/29/24 08:29 07/30/24 09:00 20 GM Magnesium Sulfate 50 ml @ 0 mls/hr PROTOCOL IV 07/27/24 10:00 07/27/24 13:42 DC Magnesium Sulfate 50 ml @ 0 mls/hr PROTOCOL IV 07/27/24 14:00 07/30/24 08:49 DC 07/30/24 06:27 25 MLS/HR Magnesium Sulfate 50 ml @ 0 mls/hr PROTOCOL IV 07/30/24 09:00 08/29/24 08:59 07/31/24 08:45 25 MLS/HR Magnesium Sulfate 50 ml @ 0 mls/hr PROTOCOL PRN IV OTHER [SEE ORDER COMMENTS] 07/27/24 04:00 07/27/24 13:42 DC 07/27/24 07:59 12.5 MLS/HR Meropenem (Merrem 1gm) 1 gm Q12H IVPB 07/31/24 15:30 08/10/24 15:29 08/01/24 04:04 1 GM Ondansetron HCl (zoFRAN 4MG INJ) 4 mg Q6H PRN IV NAUSEA/VOMITING 07/27/24 02:30 08/26/24 02:29 Piperacillin Sod/ Tazobactam Sod 50 ml @ 12.5 mls/hr Q8H IV 07/27/24 05:00 07/27/24 14:15 DC 07/27/24 12:14 12.5 MLS/HR Potassium Chloride 100 ml @ 100 mls/hr AD PRN IV POTASSIUM PROTOCOL 07/27/24 04:00 08/26/24 03:59 Potassium Chloride (K-Dur 10meq Sr Tab) 10 meq AD PRN PO POTASSIUM PROTOCOL 07/30/24 06:30 08/26/24 03:59 07/31/24 08:40 10 MEQ Potassium Chloride (K-Dur/Klor-Con 20meq) 10 meq AD PRN PO POTASSIUM PROTOCOL 07/27/24 04:00 07/30/24 06:22 DC 07/29/24 08:07 10 MEQ Potassium Chloride (KCl 10% Elixir 20meq/15ml) 10 meq AD PRN PO POTASSIUM PROTOCOL 07/27/24 04:00 08/26/24 03:59 Sodium Bicarbonate (Sodium Bicarbonate) 650 mg TID PRN PO INDIGESTION 07/27/24 12:00 08/26/24 11:59 Sodium Chloride 1,000 ml @ 100 mls/hr Q10H IV 07/27/24 03:30 07/30/24 15:05 DC 07/30/24 12:31 100 MLS/HR Tamsulosin HCl (FloMAX) 0.4 mg DAILY PO 07/28/24 09:00 08/27/24 08:59 07/31/24 08:40 0.4 MG Vancomycin HCl 250 ml @ 125 mls/hr ONCE IV 07/27/24 02:30 07/27/24 02:32 DC Vancomycin HCl 250 ml @ 125 mls/hr Q24H IV 07/28/24 01:00 07/27/24 14:15 DC Vancomycin HCl (Vancomycin Protocol) 1 each AD IV 07/27/24 00:00 07/27/24 14:21 DC Vitamin B Complex/ Vit C/Folic Acid (Nephrovite Tablet) 1 cap DAILY PO 07/28/24 09:00 08/27/24 08:59 07/31/24 08:40 1 CAP DIAGNOSTICS / RADIOLOGY: [ ] ASSESSMENT: Suspecting sepsis secondary right scrotal abscess, POA Epididymal orchitis, left side with abscess, POA Right testicular cellulitis POA Urinary retention requiring Thomas catheter POA Acute kidney injury with CKD POA improving Hypertension POA Acute leukocytosis POA improving Microcytic hypochromic anemia iron deficiency POA Acute thrombocytosis POA Uncontrolled diabetes POA Hyperlipidemia POA Morbid Obesity POA Coronary artery disease POA Severe Protein calorie Malnutrition PAD with hx of AKA to the left side Obesity Hypoventilation Syndrome Metabolic acidosis improving electrolytes derangement: hypomagnesemia History Nephrotic syndrome functional decline POA Hallucination not present POA PLAN: Admit: Medical floor condition: Guarded Status: Full IVF: NS at 75 mL/hour Consultants satellite instruction facilitator's, Infectious Disease, Urology and psychiatry Antibiotics: Antibiotics changed to Merrem been1 g every12 hours leukocytosis improving. Procedure I and D of scrotal mass possible wound VAC Wound cultures scrotal drainage was sent for cultures we will follow-up Labs cbc, cmp, mag+ Inflammatory markers every other day Avoid NSAIDs strict I&O we will monitor renal function we will follow satellite instruction facilitator's recommendations Thomas care Replace electrolytes as needed as per protocol to keep potassium above 4.0 magnesium 2.0. We will monitor H&H trend to keep hemoglobin above 7.0 vitamin B complex vitamin C folic acid one tablet daily. Bicarb po t.i.d. bowel regiment: lactulose 20 gm PO BID PRN constipation Pain management: Gabapentin 100 t.i.d.. [place] 5/325 p.o. as needed for pain. Supportive measures: DVT ppx, GI ppx PT services out of bed to chair Offloading self repositioning elevate scrotum with scrotal support. Supervising MD: Dr. Tato Guzman c/d This document was generated in part using voice recognition software, occasional wrong word or sound alike substitutions may have occurred due to the inherent limitations of voice recognition software. Read the chart carefully and recognize using context, where the substitutions have occurred. Although every effort was made to edit the content, human resources project manager and typing errors may occur ATTESTATION BY PHYSICIAN I have seen and examined the patient. I reviewed the documentation, medical decision making, and treatment plan as noted by the mid-level provider above. I agree with the findings and plan of care. MIHIR HUBBARD MD, [facility] NP Aug 01, 2024 08:18
[2024-08-01] MEDS: acetaMINOPHEN 100 ML ONE (11:40)
[2024-08-01] MEDS: FAMOTIDINE 20MG VIAL IV ONE (11:40)
[2024-08-01] MEDS ORDERED: rocuRONium bROMide 10MG/1ML 5ML VL ONE (11:43)
[2024-08-01] MEDS ORDERED: FENTanyl CITRate PF 50 MCG/1 ML 2ML VIAL ONE (11:43)
[2024-08-01] MEDS ORDERED: proPOFol 10 MG/ML 20ML VIAL IV ONE (11:43)
[2024-08-01] MEDS ORDERED: LIDOCAINE PF 100MG/5ML (2%) SYRINGE 5ML ONE (11:43)
[2024-08-01] MEDS: 0.9%NACL 1000ML 1,000 ML IV ONE (11:47)
[2024-08-01] MEDS ORDERED: ondanSETRON 4MG INJ ONE (11:58)
[2024-08-01] MEDS ORDERED: dexaMETHasone SOD PHOSPHATE 10MG/ML 1ML VIAL ONE (11:58)
--- NOTE | 2024-08-01 11:59 | NUR ---
MISSED INSULIN DOSE PATIENT IS OFF UNIT AT THIS TIME AND IN SURGICAL PROCEDURE. INSULIN DOSE MISSED AT THIS TIME
[2024-08-01] MEDS ORDERED: 0.9%NACL 1000ML 1,000 ML IV SCH (12:00)
[2024-08-01] MEDS ORDERED: phenylEPHRINE HCL 10 MG/ML 1ML VIAL IV ONE (12:28)
--- NOTE | 2024-08-01 13:08 | NUR ---
Discharge Planning: Offered patient SNF placement as per prompt. Patient's spouse was very upset. States patient was not ready for SNF placement. Kristin Harris updated. Patient is scheduled for I&D with possible wound vac placement today. CM will continue to monitor and re-offer SNF if appropriate.
[2024-08-01] MEDS: ketOROlac 15MG/ML VIAL (15MG/ML) ONE (13:52)
[2024-08-01] MEDS: hydroMORPHone 1 MG INJ ONE (13:52)
--- NOTE | 2024-08-01 17:14 | PN ---
NEPHROLOGY PROGRESS NOTE Date/Time Patient Seen: Aug 01, 2024 Reason for Consultation: 17:13 SUBJECTIVE: This is a 49-year-old male with a past medical history of diabetes mellitus type 2, hypertension, peripheral arterial disease with left AKA, coronary artery disease, hyperlipidemia, GERD, PAD, and obesity Patient presented to the emergency room for testicular pain and swelling Thomas in place due to urinary retention, he was seen by Urology Blood cultures has been negative Continues on antibiotics as per ID Nurse reports guarded abscess ruptured and wound cultures were sent, pending results Were consulted for renal failure. Renal function and electrolytes are stable. Pending I&D later today UA positive for proteinuria. Hemoglobin noted Case management coordinating SNF placement Patient was seen in the medical floor, in no acute distress REVIEW OF SYSTEMS: GENERAL: Positive for testicular pain and swelling NEUROLOGIC: Negative for any blurry vision, blind spots, double vision, facial asymmetry, dysphagia, dysarthria, hemiparesis, hemisensory deficits, vertigo, ataxia. HEENT: Negative for any head trauma, neck trauma, neck stiffness, photophobia, phonophobia, sinusitis, rhinitis. CARDIAC: Negative for any chest pain, dyspnea on exertion, paroxysmal nocturnal dyspnea, peripheral edema. PULMONARY: Negative for any shortness of breath, wheezing, COPD, or TB exposure. GASTROINTESTINAL: Negative for any abdominal pain, nausea, vomiting, bright red blood per rectum, melena. GENITOURINARY: Negative for any dysuria, hematuria, incontinence. INTEGUMENTARY: Negative for any rashes, cuts, insect bites. RHEUMATOLOGIC: Negative for any joint pains, photosensitive rashes, history of vasculitis or kidney problems. HEMATOLOGIC: Negative for any abnormal bruising, frequent infections or bleeding. PHYSICAL EXAM: GENERAL: Alert and oriented x 3. No acute distress. Well-nourished. EYES: EOMI. Anicteric. HENT: Moist mucous membranes. No scleral icterus. No cervical lymphadenopathy. LUNGS: Clear to auscultation bilaterally. No accessory muscle use. CARDIOVASCULAR: Regular rate and rhythm. No murmur. No JVD. ABDOMEN: Soft, non-tender and non-distended. No palpable masses. EXTREMITIES: 2+ edema. Non-tender. SKIN: No rashes or lesions. Warm. NEUROLOGIC: No focal neurological deficits. CN II-XII grossly intact, but not individually tested. PSYCHIATRIC: Cooperative. Appropriate mood and affect. LABORATORY: [ ] Hematology Labs: Test 08/01/24 05:06 Range/Units White Blood Count 11.6 #H 4.8-10.8 K/uL Red Blood Count 3.69 #L 4.50-6.20 MIL/uL Hemoglobin 8.8 #L 14.0-18.0 g/dL Hematocrit 28.4 #L 42-54 % Mean Corpuscular Volume 77.0 L 79-99 fL Mean Corpuscular Hemoglobin 23.8 L 27.0-33.0 pg Mean Corpuscular Hemoglobin Concent 31.0 L 32.0-36.0 g/dL Red Cell Distribution Width 14.2 11.0-15.5 % Platelet Count 600 H 130-400 K/uL Mean Platelet Volume 9.1 7.5-10.5 fL Immature Granulocyte % (Auto) 1.1 H 0-1 % Neutrophils (%) (Auto) 67.3 40.0-77.0 % Lymphocytes (%) (Auto) 22.4 21.0-51.0 % Monocytes (%) (Auto) 6.3 3.0-13.0 % Eosinophils (%) (Auto) 2.5 0.0-8.0 % Basophils (%) (Auto) 0.4 0.0-5.0 % Neutrophils # (Auto) 7.8 H 1.8-7.7 K/uL Lymphocytes # (Auto) 2.6 1.0-4.8 K/uL Monocytes # (Auto) 0.7 0.1-1.0 K/uL Eosinophils # (Auto) 0.29 0.00-0.70 K/uL Basophils # (Auto) 0.05 0.00-0.20 K/uL Absolute Immature Granulocyte (auto 0.13 0-1 K/uL Nucleated Red Blood Cells 0.0 0.0-0.19 % Chemistry Labs: Test 08/01/24 15:47 08/01/24 05:06 07/31/24 05:44 Range/Units Whole Blood Glucose 315 H 70-110 MG/DL Sodium Level 137 136-145 mmol/L Potassium Level 3.6 3.5-5.1 mmol/L Chloride Level 105 101-111 mmol/L Carbon Dioxide Level 23 21-32 mmol/L Blood Urea Nitrogen 37 H 7-18 mg/dL Creatinine 1.7 H 0.5-1.3 mg/dL Glomerular Filtration Rate Calc 49 >90 mL/min Random Glucose 309 H 70-105 mg/dL Total Calcium 8.7 8.5-10.1 mg/dL Magnesium Level 1.80 1.80-2.40 mg/dL Total Bilirubin 0.1 #L 0.2-1.0 mg/dL Aspartate Amino Transf (AST/SGOT) 22 10-37 U/L Alanine Aminotransferase (ALT/SGPT) 29 12-78 U/L Alkaline Phosphatase 223 H 50-136 U/L Total Protein 7.0 6.0-8.3 g/dL Albumin 1.1 L 3.5-5.0 g/dL C-Reactive Protein, Quantitative 145.60 H 0.5-3.0 mg/L Procalcitonin 0.37 0.05-0.5 ng/mL Diagnostic REASON: testicular pain and swelling ORDERING PHYSICIAN: JACQUELYN GIBBS GUSSET STITCHER PROCEDURE: SCROTUM - US SCROTUM & CONTENTS US SCROTUM & CONTENTS HISTORY: Testicular pain COMPARISON: None TECHNIQUE: Duplex scrotal ultrasound study was performed. FINDINGS: The right testes measures 3.6 x 1.4 x 2.7 cm. The left testes measures 3.5 x 1.6 x 2 cm. No evidence of intratesticular mass or abnormal calcification is seen. Normal flow is demonstrated in the left testes and left epididymis. There is left epididymal cyst measuring 3 mm. Hypoechoic focus is seen in the epididymal head with adjacent vascularity measuring 4.3 x 1.9 x 3.8 cm at the inferior aspect of the left testes. Slight increased flow is seen of the right testes and right epididymis suspicious for right epididymal orchitis. No hydroceles or varicocele is seen. IMPRESSION: 1. Findings may be related to mild right epididymal orchitis. DICTATED BY: BRIAN LUBIN MD DATE: 07/27/24 0902 ASSESSMENT: Acute on chronic renal failure Nephrotic syndrome Anemia Metabolic acidosis Right testicular clear cellulitis Urinary retention S/p Thomas catheter Electrolyte derangement Coronary artery disease Uncontrolled Diabetes mellitus type 2 Hyperlipidemia PAD S/p left AKA Severe protein calorie malnutrition Obesity PLAN: Labs, diagnostic, radiologic exams reviewed and interpreted by myself and supervising physician. We have reviewed external records in detail Pending I&D of abscess today Require close monitoring of renal function and electrolytes Order CBC, CMP, serum osmolality, and electrolytes in am Continue with antibiotics Renal diabetic diet BiPAP as necessary, for respiratory distress Monitor blood pressure adjust medication doses as needed Avoid hypotensive episodes May use Dilaudid 0.5 mg IV every 6 hours as needed for severe pain Monitor blood sugars Strict intake, output, and daily weight should be monitored Please renally adjust medications Avoid nephrotoxic and nonsteroidal drugs Avoid contrast if possible Will continue to monitor renal function, anemia, electrolytes Treatment plan discussed with patient Questions were answered We have discussed with the other team physicians in detail about the care plan We will continue to monitor the patient closely ATTESTATION BY PHYSICIAN I have seen and examined the patient. I reviewed the documentation, medical decision making, and treatment plan as noted by the mid-level provider above. I agree with the findings and plan of care. KRUPA MANDEL MD, [facility] Aug 01, 2024 17:14
--- NOTE | 2024-08-01 17:30 | NUR ---
PATIENT , SHELDON SHI, DESIRED TO SPEAK WITH NURSE CARING FOR PATIENT SHE HAD SOME QUESTIONS. ARRIVED TO ROOM TO SPEAK WITH . EXPRESSED IRRITATION SHE CLAIMED THAT AN EMPLOYEE NAMED "MISTY GONZALES" HAD SPOKEN WITH HER SISTERS AND PROVIDED THEM WITH POST SURGICAL INFORMATION. ACCORDING TO THE , THIS EMPLOYEE TOLD THE FAMILY THAT THE PATIENT'S ABSCESS HAD BEEN "FOUND IN THE RECTUM". THE STATED, "I DON'T THINK IT'S RIGHT THAT PEOPLE GIVE INFORMATION THAT EASILY, EVEN IF IT'S TO MY SISTERS. WE ALL GET DIFFERENT INFORMATION AND IT MAKES THINGS VERY CONFUSING". VERBALIZED UNDERSTANDING OF 'S CONCERN AND REASSURED HER THAT INFORMATION WOULD ONLY BE GIVEN TO HER FOR NOW ON. WILL NOTIFY ONCOMING SHIFT ONLY TO GIVE INFORMATION TO . ALSO VOICED CONCERN OVER PLACEMENT OF WOUND VAC AND HOW IT WOULD BE CARED FOR WHEN THE PATIENT NEEDED TO USE THE BATHROOM. CLARIFIED TO THE THAT IF THE WOUND VAC GETS DIRTY, IT WOULD NEED TO BE CHANGED. FINALLY, STATED THAT SHE WAS NOT HAPPY WITH DR. SUMMERS RECOMMENDING [facility] FOR DISCHARGE. EXPLAINED TO THAT THERE ARE ALWAYS MORE OPTIONS AND THAT IF [facility] WAS NOT DESIRED, CASE MANAGEMENT WOULD WORK WITH HER FOR MORE IDEAL DISCHARGE. EXPRESSED SOME RELIEF NOW THAT HER QUESTIONS HAD BEEN ADDRESSED. , SHELDON SHI, CONTACT INFORMATION .
--- NOTE | 2024-08-01 18:26 | NUR ---
Discharge Planning: Pt. is s/p Major debridement of scrotum and perineum today by Dr. Choudhury with wound vac placement. Dr. Hernandes ordered referral to L-TAC but spouse is refusing since she says last time spouse was there "he almost ." Marcelle with ID made aware. Spouse states she wants physician to personally tell her what kind of infection it is and why he needs iv abx.
--- NOTE | 2024-08-01 18:54 | OP ---
DATE OF PROCEDURE: 08/01/2024 PREOPERATIVE DIAGNOSES: Epididymitis with scrotal abscess on the right. PROCEDURE PERFORMED: Incision and drainage with debridement of right perineal and ischiorectal abscess tracking into the scrotum. POSTOPERATIVE DIAGNOSES: Right ischiorectal/perineal abscess tracking to the right hemiscrotum, 16 x 12 x 10 cm. ANESTHESIA: General anesthesia. COMPLICATIONS: None. DRAINS: A 16-Mosotho Thomas catheter as well as wound VAC device. SPECIMENS: Necrotic scrotal wall on the right hand side and right peroneal reactive phlegmon tissue and the perineal abscess. SURGEON: Tristin Choudhury MD [employer] SALESMAN: None. ANESTHESIA: General anesthesia. INDICATIONS FOR PROCEDURE: This is a 49-year-old male admitted to the hospital with a right epididymal orchitis per physical examination and ultrasound findings. The patient has improved his white count, but his physical findings are persisted, began having some spontaneous drainage from the right hemiscrotum and the patient is scheduled for incision and drainage, debridement indicated procedures of scrotal abscess. Risks, benefits, alternatives as well as potential need for orchiectomy on the right side at this time, a later stage of the . His concerns answered. He did request and did provide fully informed consent. FINDINGS: Right ischiorectal perineal abscess tracking down to the ischial tuberosity on the right hand side, not involving the rectum or anus by bimanual exam. The testicle itself is unaffected and intact, however, it is covered with significant amount of phlegmon and reactive tissue. The cord is also intact. DESCRIPTION OF PROCEDURE: The patient was duly identified, informed consent was confirmed. Timeout was taken. He was then brought to the operating room and placed supine on the operating table. After adequate hemodynamic monitoring had been established by the Anesthesiology, the patient underwent smooth induction of general anesthesia by Anesthesiology. Next, he was placed in dorsal lithotomy position and genitalia and lower abdomen were thoroughly prepped and draped in usual fashion and then a 16-Mosotho Thomas catheter was then placed in the bladder with irrigation of debris. Next, an incision was then made over the most posterior aspect of the lower portion of the scrotum and entry into a large abscess cavity with multiple septations was encountered and multiple cultures were taken, pus was evacuated. A total of about 50 mL of seropurulent material was evacuated and using blunt and sharp dissection, much of the phlegmotic material could safely be sharply excised was excised using curved Sheridan as well as LigaSure. Hemostasis was secured completely. Copious irrigation with Pulsavac and Aricept antibiotic solution was then performed. The testicle was noted to be intact. It was wrapped in Vaseline gauze and returned into the scrotum after all necrotic scrotal wall had been excised and then, a wound VAC sponge was then applied with a tail down to the tuberosity on the patient's right hand side. Instrument count, sponge count, needle count were all said to be correct at this stage of the procedure, tolerated the procedure well. There were no complications. The wound VAC was connected to independent suction, Thomas to bedside drainage. Awakened from anesthesia and was now transferred from the operating room to recovery in good stable and hemodynamically satisfactory condition having experienced no complications. ATTESTATION: Dr. Choudhury performed the entire procedure, was present in the operating room throughout and additional plan will be for wound care manager asset management service to see the patient for management of his wound VAC and wound care going forward. No complications. TID: [id number] RECEIPT: [id number]
[2024-08-01] MEDS: hydroMORPHone 0.5 MG SYG (0.5MG/0.5ML) IVP PRN (19:41)
--- NOTE | 2024-08-01 22:15 | PN ---
INFECTIOUS DISEASE PROGRESS NOTE Date of Service: Aug 01, 2024 SUBJECTIVE: This is a 49-year-old male patient presented to the hospital with chief complaint of right testicle pain. A scrotal ultrasound done on admission showed mild right epididymo-orchitis. Patient was seen and examined at bedside in room 317. Patient is awake, alert and oriented x3. Patient is scheduled for I&D of the right scrotal abscess with a wound VAC placement for today. The WBC trended down to 11.6 this morning and no fever, temperature is is 98.1. Patient continues on ceftriaxone and doxycycline and was also started on Meropenem by urologist. We will continue to monitor patient's care. PHYSICAL EXAM EYES: Anicteric. Pupils equal and reactive. Right eye blindness. HENT: No oral thrush seen, moist Oral mucosa. NECK: Supple, no JVD or thyromegaly. LUNGS: Good air entry. No rales, no rhonchi. CARDIOVASCULAR: S1, S2 regular. No murmur heard. ABDOMEN: Soft, non tender, bowel sounds present, no organomegaly. CENTRAL NERVOUS SYSTEM: Awake, alert, oriented x 3. SKIN: No rashes, no swelling. LYMPHATICS: No peripheral lymphadenopathy. MUSCULOSKELETAL: No joint swelling, erythema or tenderness. EXTREMITIES: No cyanosis or clubbing. 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 BACK: No deformity, no pressure ulcer. GENITOURINARY: No dysuria or hematuria. Thomas catheter. SCROTUM: Right Scrotal abscess. Vital Sign (Last 12 Hours) 08/01/24 08/01/24 08/01/24 08/01/24 12:00 13:10 13:15 13:20 Temp 98.1 97.9 Pulse 69 69 88 81 Resp 19 13 14 13 B/P (MAP) 143/76 109/63 124/66 114/63 Pulse Ox 96 91 95 96 O2 Delivery Room Air Nonrebreathing Mask Nonrebreathing Mask Nonrebreathing Mask FiO2 100 100 100 08/01/24 08/01/24 08/01/24 08/01/24 13:25 13:30 13:35 13:40 Pulse 79 79 78 78 Resp 15 16 16 14 B/P (MAP) 118/75 117/76 131/74 130/75 Pulse Ox 98 100 100 94 O2 Delivery Nonrebreathing Mask Nonrebreathing Mask Nonrebreathing Mask Nasal Cannula O2 Flow Rate 3.0 FiO2 100 100 100 08/01/24 08/01/24 08/01/24 08/01/24 13:45 13:50 13:55 14:00 Pulse 77 76 75 69 Resp 15 12 15 14 B/P (MAP) 137/81 136/81 133/79 134/76 Pulse Ox 95 95 95 96 O2 Delivery Nasal Cannula Nasal Cannula Nasal Cannula Nasal Cannula O2 Flow Rate 3.0 3.0 3.0 3.0 08/01/24 08/01/24 08/01/24 08/01/24 14:05 14:10 14:20 14:35 Temp 98.2 98.1 Pulse 70 71 73 70 Resp 15 15 18 B/P (MAP) 135/81 130/79 129/80 124/87 Pulse Ox 96 96 90 93 O2 Delivery Nasal Cannula Nasal Cannula Room Air Nasal Cannula O2 Flow Rate 3.0 3.0 2.0 08/01/24 08/01/24 08/01/24 08/01/24 14:50 15:05 15:35 16:05 Pulse 70 69 69 70 B/P (MAP) 133/77 141/90 137/86 146/84 Pulse Ox 96 98 98 99 O2 Delivery Nasal Cannula Nasal Cannula Nasal Cannula Nasal Cannula O2 Flow Rate 2.0 2.0 2.0 2.0 08/01/24 08/01/24 08/01/24 08/01/24 17:05 18:05 19:05 20:05 Pulse 72 79 79 80 B/P (MAP) 139/87 153/97 154/89 150/87 Pulse Ox 99 98 99 98 O2 Delivery Nasal Cannula Nasal Cannula O2 Flow Rate 2.0 2.0 Intake & Output (last 24hrs) 07/31/24 07/31/24 08/01/24 15:00 23:00 07:00 Intake Total 300.0 ml Output Total 800 ml 2700 ml 1000 ml Balance -800 ml -2700 ml -700.0 ml LABS: Laboratory: Test 08/01/24 21:23 08/01/24 05:06 07/31/24 05:44 Range/Units Whole Blood Glucose 452 *H 70-110 MG/DL Bedside Glucose Comment Stat Lab Glu Request White Blood Count 11.6 #H 4.8-10.8 K/uL Red Blood Count 3.69 #L 4.50-6.20 MIL/uL Hemoglobin 8.8 #L 14.0-18.0 g/dL Hematocrit 28.4 #L 42-54 % Mean Corpuscular Volume 77.0 L 79-99 fL Mean Corpuscular Hemoglobin 23.8 L 27.0-33.0 pg Mean Corpuscular Hemoglobin Concent 31.0 L 32.0-36.0 g/dL Red Cell Distribution Width 14.2 11.0-15.5 % Platelet Count 600 H 130-400 K/uL Mean Platelet Volume 9.1 7.5-10.5 fL Immature Granulocyte % (Auto) 1.1 H 0-1 % Neutrophils (%) (Auto) 67.3 40.0-77.0 % Lymphocytes (%) (Auto) 22.4 21.0-51.0 % Monocytes (%) (Auto) 6.3 3.0-13.0 % Eosinophils (%) (Auto) 2.5 0.0-8.0 % Basophils (%) (Auto) 0.4 0.0-5.0 % Neutrophils # (Auto) 7.8 H 1.8-7.7 K/uL Lymphocytes # (Auto) 2.6 1.0-4.8 K/uL Monocytes # (Auto) 0.7 0.1-1.0 K/uL Eosinophils # (Auto) 0.29 0.00-0.70 K/uL Basophils # (Auto) 0.05 0.00-0.20 K/uL Absolute Immature Granulocyte (auto 0.13 0-1 K/uL Nucleated Red Blood Cells 0.0 0.0-0.19 % Sodium Level 137 136-145 mmol/L Potassium Level 3.6 3.5-5.1 mmol/L Chloride Level 105 101-111 mmol/L Carbon Dioxide Level 23 21-32 mmol/L Blood Urea Nitrogen 37 H 7-18 mg/dL Creatinine 1.7 H 0.5-1.3 mg/dL Glomerular Filtration Rate Calc 49 >90 mL/min Random Glucose 309 H 70-105 mg/dL Total Calcium 8.7 8.5-10.1 mg/dL Magnesium Level 1.80 1.80-2.40 mg/dL Total Bilirubin 0.1 #L 0.2-1.0 mg/dL Aspartate Amino Transf (AST/SGOT) 22 10-37 U/L Alanine Aminotransferase (ALT/SGPT) 29 12-78 U/L Alkaline Phosphatase 223 H 50-136 U/L Total Protein 7.0 6.0-8.3 g/dL Albumin 1.1 L 3.5-5.0 g/dL C-Reactive Protein, Quantitative 145.60 H 0.5-3.0 mg/L Procalcitonin 0.37 0.05-0.5 ng/mL ASSESSMENT: Right epididymo-orchitis Scrotal wall abscess with cellulitis. Urinary tract infection. Leukocytosis. Acute renal failure. Diabetes mellitus. PLAN: Continue ceftriaxone. Continue doxycycline. Continue GI prophylaxis. Continue pain management. Continue monitoring glucose levels. We will follow up on the culture results. Urology has evaluated patient and patient is scheduled for I&D of the right scrotal abscess with a wound VAC placement for today. This case was reviewed and discussed with my supervising physician and the above assessment and plan was formulated and agreed upon. ATTESTATION BY PHYSICIAN I have seen and examined the patient. I reviewed the documentation, medical decision making, and treatment plan as noted by the mid-level provider above. I agree with the findings and plan of care. GRANT SUMMERS MD, [facility] Aug 01, 2024 22:14
[2024-08-02] VITALS (9 sets, daily range): BP systolic 124–148; BP diastolic 60–80; PULSE 63–78; RESP 17–21; TEMP 97.6–98.2; O2SAT 97–100
[2024-08-02] MEDS: DOXYCYCLINE 100MG+NS 250ML 250 ML IV SCH (03:33)
[2024-08-02 05:50] LABS: HEMATOCRIT 29.5 % (42-54); MEAN CORPUSCULAR HEMOGLOBIN 23.9 pg (27.0-33.0); MEAN CORPUSCULAR HGB CONC 30.8 g/dL (32.0-36.0); MEAN CORPUSCULAR VOLUME 77.4 fL (79-99); RED BLOOD CELL COUNT(AUTO) 3.81 MIL/uL (4.50-6.20); RED CELL DISTRIBUTION WIDTH 14.4 % (11.0-15.5); WHITE BLOOD COUNT (AUTO) 14.5 K/uL (4.8-10.8)
[2024-08-02 06:21] LABS: ALBUMIN 1.1 g/dL (3.5-5.0); BILIRUBIN,TOTAL 0.1 mg/dL (0.2-1.0); CREATININE 1.7 mg/dL (0.5-1.3); MAGNESIUM 1.6 mg/dL (1.80-2.40); PHOSPHORUS 4.4 mg/dL (2.5-4.9); POTASSIUM 4.1 mmol/L (3.5-5.1); TOTAL PROTEIN, SERUM 6.6 g/dL (6.0-8.3)
--- NOTE | 2024-08-02 10:57 | PN ---
NEPHROLOGY PROGRESS NOTE Date/Time Patient Seen: Aug 02, 2024 SUBJECTIVE: This is a 49-year-old male with a past medical history of diabetes mellitus type 2, hypertension, peripheral arterial disease with left AKA, coronary artery disease, hyperlipidemia, GERD, PAD, and obesity Patient presented to the emergency room for testicular pain and swelling Thomas in place due to urinary retention, he was seen by Urology Blood cultures has been negative Continues on antibiotics as per ID Nurse reports guarded abscess ruptured and wound cultures were sent, pending results Were consulted for renal failure. Renal function and electrolytes are stable. S/p Incision and drainage with debridement of right perineal and ischiorectal abscess tracking into the scrotum on 08/01/[address] Choudhury UA positive for proteinuria. Hemoglobin noted Case management coordinating SNF placement Patient was seen in the medical floor, in no acute distress REVIEW OF SYSTEMS: GENERAL: Positive for testicular pain and swelling NEUROLOGIC: Negative for any blurry vision, blind spots, double vision, facial asymmetry, dysphagia, dysarthria, hemiparesis, hemisensory deficits, vertigo, ataxia. HEENT: Negative for any head trauma, neck trauma, neck stiffness, photophobia, phonophobia, sinusitis, rhinitis. CARDIAC: Negative for any chest pain, dyspnea on exertion, paroxysmal nocturnal dyspnea, peripheral edema. PULMONARY: Negative for any shortness of breath, wheezing, COPD, or TB exposure. GASTROINTESTINAL: Negative for any abdominal pain, nausea, vomiting, bright red blood per rectum, melena. GENITOURINARY: Negative for any dysuria, hematuria, incontinence. INTEGUMENTARY: Negative for any rashes, cuts, insect bites. RHEUMATOLOGIC: Negative for any joint pains, photosensitive rashes, history of vasculitis or kidney problems. HEMATOLOGIC: Negative for any abnormal bruising, frequent infections or bleeding. PHYSICAL EXAM: GENERAL: Alert and oriented x 3. No acute distress. Well-nourished. EYES: EOMI. Anicteric. HENT: Moist mucous membranes. No scleral icterus. No cervical lymphadenopathy. LUNGS: Clear to auscultation bilaterally. No accessory muscle use. CARDIOVASCULAR: Regular rate and rhythm. No murmur. No JVD. ABDOMEN: Soft, non-tender and non-distended. No palpable masses. EXTREMITIES: 2+ edema. Non-tender. SKIN: No rashes or lesions. Warm. NEUROLOGIC: No focal neurological deficits. CN II-XII grossly intact, but not individually tested. PSYCHIATRIC: Cooperative. Appropriate mood and affect. LABORATORY: [ ] Hematology Labs: Test 08/02/24 05:26 08/01/24 05:06 Range/Units White Blood Count 14.5 H 4.8-10.8 K/uL Red Blood Count 3.81 L 4.50-6.20 MIL/uL Hemoglobin 9.1 L 14.0-18.0 g/dL Hematocrit 29.5 L 42-54 % Mean Corpuscular Volume 77.4 L 79-99 fL Mean Corpuscular Hemoglobin 23.9 L 27.0-33.0 pg Mean Corpuscular Hemoglobin Concent 30.8 L 32.0-36.0 g/dL Red Cell Distribution Width 14.4 11.0-15.5 % Platelet Count 660 H 130-400 K/uL Mean Platelet Volume 9.3 7.5-10.5 fL Nucleated Red Blood Cells 0.0 0.0-0.19 % Immature Granulocyte % (Auto) 1.1 H 0-1 % Neutrophils (%) (Auto) 67.3 40.0-77.0 % Lymphocytes (%) (Auto) 22.4 21.0-51.0 % Monocytes (%) (Auto) 6.3 3.0-13.0 % Eosinophils (%) (Auto) 2.5 0.0-8.0 % Basophils (%) (Auto) 0.4 0.0-5.0 % Neutrophils # (Auto) 7.8 H 1.8-7.7 K/uL Lymphocytes # (Auto) 2.6 1.0-4.8 K/uL Monocytes # (Auto) 0.7 0.1-1.0 K/uL Eosinophils # (Auto) 0.29 0.00-0.70 K/uL Basophils # (Auto) 0.05 0.00-0.20 K/uL Absolute Immature Granulocyte (auto 0.13 0-1 K/uL Chemistry Labs: Test 08/02/24 05:26 08/02/24 05:25 08/01/24 22:40 Range/Units Sodium Level 135 L 136-145 mmol/L Potassium Level 4.1 3.5-5.1 mmol/L Chloride Level 104 101-111 mmol/L Carbon Dioxide Level 22 21-32 mmol/L Blood Urea Nitrogen 43 H 7-18 mg/dL Creatinine 1.7 H 0.5-1.3 mg/dL Glomerular Filtration Rate Calc 49 >90 mL/min Random Glucose 346 H 70-105 mg/dL Total Calcium 8.2 L 8.5-10.1 mg/dL Phosphorus Level 4.4 2.5-4.9 mg/dL Magnesium Level 1.60 L 1.80-2.40 mg/dL Total Bilirubin 0.1 L 0.2-1.0 mg/dL Aspartate Amino Transf (AST/SGOT) 20 10-37 U/L Alanine Aminotransferase (ALT/SGPT) 29 12-78 U/L Alkaline Phosphatase 200 H 50-136 U/L C-Reactive Protein, Quantitative 43.40 H 0.5-3.0 mg/L Total Protein 6.6 6.0-8.3 g/dL Albumin 1.1 L 3.5-5.0 g/dL Procalcitonin 0.12 0.05-0.5 ng/mL Whole Blood Glucose 322 H 70-110 MG/DL Bedside Glucose Comment Notified Nurse Diagnostic REASON: testicular pain and swelling ORDERING PHYSICIAN: JACQUELYN GIBBS CONTACT LENS INSPECTOR PROCEDURE: SCROTUM - US SCROTUM & CONTENTS US SCROTUM & CONTENTS HISTORY: Testicular pain COMPARISON: None TECHNIQUE: Duplex scrotal ultrasound study was performed. FINDINGS: The right testes measures 3.6 x 1.4 x 2.7 cm. The left testes measures 3.5 x 1.6 x 2 cm. No evidence of intratesticular mass or abnormal calcification is seen. Normal flow is demonstrated in the left testes and left epididymis. There is left epididymal cyst measuring 3 mm. Hypoechoic focus is seen in the epididymal head with adjacent vascularity measuring 4.3 x 1.9 x 3.8 cm at the inferior aspect of the left testes. Slight increased flow is seen of the right testes and right epididymis suspicious for right epididymal orchitis. No hydroceles or varicocele is seen. IMPRESSION: 1. Findings may be related to mild right epididymal orchitis. DICTATED BY: BRIAN LUBIN MD DATE: 07/27/24 0902 ASSESSMENT: Acute on chronic renal failure Nephrotic syndrome Anemia Metabolic acidosis Right testicular clear cellulitis Urinary retention S/p Thomas catheter Electrolyte derangement Coronary artery disease Uncontrolled Diabetes mellitus type 2 Hyperlipidemia PAD S/p left AKA Severe protein calorie malnutrition Obesity PLAN: Labs, diagnostic, radiologic exams reviewed and interpreted by myself and supervising physician. We have reviewed external records in detail Require close monitoring of renal function and electrolytes Order CBC, CMP, serum osmolality, and electrolytes in am Continue with antibiotics Renal diabetic diet BiPAP as necessary, for respiratory distress Monitor blood pressure adjust medication doses as needed Avoid hypotensive episodes May use Dilaudid 0.5 mg IV every 6 hours as needed for severe pain Monitor blood sugars Strict intake, output, and daily weight should be monitored Please renally adjust medications Avoid nephrotoxic and nonsteroidal drugs Avoid contrast if possible Will continue to monitor renal function, anemia, electrolytes Treatment plan discussed with patient Questions were answered We have discussed with the other team physicians in detail about the care plan We will continue to monitor the patient closely ATTESTATION BY PHYSICIAN I have seen and examined the patient. I reviewed the documentation, medical decision making, and treatment plan as noted by the mid-level provider above. I agree with the findings and plan of care. KRUPA MANDEL MD, [facility] Aug 02, 2024 10:57
[2024-08-02] MEDS: fluCONazole 100 MG TAB PO SCH (11:36)
--- NOTE | 2024-08-02 12:28 | PN ---
[facility] PROGRESS NOTE Date of Service: Aug 02, 2024 Time of Service: 12:26 SUBJECTIVE: [ ] This is a 49-year-old that was admitted early this morning with chief complaints of testicular cellulitis. Patient is fully awake alert oriented x3 patient has a Thomas catheter secondary to urinary retention were being urology started patient on Flomax. Patient has no history of urinary retention. GEOVANNI on this admission mechanical systems engineer following. Patient has a history of nephrotic syndrome we will discontinue vancomycin and Zosyn. 07/28/24 patient is seen patient has been having temperature T-max 100.9 and leukocytosis being followed by infectious disease. Patient is fully awake alert oriented x3 07/29/24 patient appears to be doing better however continues with low-grade temp ID following for antibiotics stewardship. Leukocytosis trending down slowly. Right testicle erythema and swollen , tender to palpate. continue with indwelling catheter tender to. RN reached out to Urology pending consult. 07/30/24 we repeat ultrasound testicular pending results. Leukocytosis is persistent however is afebrile and on empiric antibiotics. The patient offers no new complaints. 07/31/2024 patient is lying in bed patient was encouraged to get out of bed to chair as tolerated. Primary nurse reports scrotal abscess is now draining and cultures were collected. Patient continues with leukocytosis ID following on empiric antibiotics. Urology recommending Merrem we will see what ID if patient is a candidate for Merrem. No fevers last night tolerating antibiotics reports no diarrhea. 08/01/24 patient seen and examined. Waiting for wound cultures. Urology plan to do I and D and debridement of the right scrotal abscess with possible wound VAC. Case management for discharge planning. 08/02/34 was seen earlier, patient is fully awake alert oriented x3. Postop day one tolerating wound VAC. We had a long discussion with patient in regards he might need to return back to [facility]. There are multiple concerns with patient and significant other to return back to facility. Otherwise patient has been afebrile leukocytosis trending down. All questions were addressed we will discuss case with case management. REVIEW OF SYSTEMS CONSTITUTIONAL: Denies fevers, chills, or night sweats. No unintentional weight loss reported. NEUROLOGICAL: Denies headache, amaurosis fugax, motor weakness, sensory deficit, vertigo/spinning sensation, gait abnormalities, or tremors. 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 CARDIOVASCULAR: Denies any exertional angina, dyspnea on exertion, orthopnea, paroxysmal nocturnal dyspnea, palpitations, life-threatening arrhythmias, claudication. PULMONARY: Denies any shortness of breath, cough, phlegm/sputum, hemoptysis, pleuritic chest pain. SLEEP: Denies morning headaches, daytime somnolence or napping. Denies difficulty falling asleep, staying asleep, waking from sleep. Denies knowledge of snoring. GASTROINTESTINAL: Denies any type of dysphagia to either liquids or solids. Denies nausea, vomiting, pyrosis, early satiety, abdominal pain, diarrhea, constipation, or changes in stool consistency or caliber. Denies coffee-ground emesis, hematemesis, hematochezia, or melanotic stools. GENITOURINARY: Denies frequency, urgency, nocturia, hematuria or incontinence (Storage/Irritative symptoms.) Low urinary stream, straining to void, urinary intermittency or hesitancy, splitting of the voiding stream, terminal dribbling. ENDOCRINOLOGIC: Denies polyuria, polydipsia, polyphagia or heat/cold intolerances. HEMATOLOGIC: Denies thrombophilia/previous clots, or coagulopathy/bleeding disorders. ONCOLOGIC: Denies personal history of malignancy. DERMATOLOGIC: Denies rashes or pruritus. PSYCHIATRIC: Denies any suicidal or homicidal ideation. Denies hallucinations. PHYSICAL EXAM GENERAL APPEARANCE: The patient is awake, alert, and oriented, in no acute cardiopulmonary distress. NEUROLOGICAL: Cranial nerves II-XII grossly intact. Motor is 5/5 in bilateral upper and lower extremities proximal to distal. No sensory deficits. HEENT: Face is symmetric. Pupils are equal and reactive. Extraocular movements are intact. NECK: Supple. No JVD. No thyromegaly. No submental, submandibular, pre- /postauricular, occipital or supraclavicular lymphadenopathy. CHEST: Normal chest expansion. No Telemetry. LUNGS: Absence of any rales, rhonchi or any wheezing. CARDIOVASCULAR: Regular. S1 and S2 normal. No appreciable rubs, murmurs or gallops. ABDOMEN: Soft, nontender, and nondistended. There is no rebound, voluntary guarding, or rigidity. : Deferred. No Thomas. EXTREMITIES: Non-edematous and not cyanotic. No clubbing. Good capillary refill. SKIN: Swollen testicles Vital Signs (last 8hr) Date Time Temp Pulse Resp B/P (MAP) Pulse Ox O2 Delivery O2 Flow Rate FiO2 08/02/24 08:10 100 Room Air* 0 21 08/02/24 08:00 97.5 69 21 136/72 100 Nasal Cannula 3.0 LABS: Laboratory: Test 08/02/24 11:21 08/02/24 05:26 08/01/24 22:40 08/01/24 05:06 Range/Units Whole Blood Glucose 261 H 70-110 MG/DL White Blood Count 14.5 H 4.8-10.8 K/uL Red Blood Count 3.81 L 4.50-6.20 MIL/uL Hemoglobin 9.1 L 14.0-18.0 g/dL Hematocrit 29.5 L 42-54 % Mean Corpuscular Volume 77.4 L 79-99 fL Mean Corpuscular Hemoglobin 23.9 L 27.0-33.0 pg Mean Corpuscular Hemoglobin Concent 30.8 L 32.0-36.0 g/dL Red Cell Distribution Width 14.4 11.0-15.5 % Platelet Count 660 H 130-400 K/uL Mean Platelet Volume 9.3 7.5-10.5 fL Nucleated Red Blood Cells 0.0 0.0-0.19 % Sodium Level 135 L 136-145 mmol/L Potassium Level 4.1 3.5-5.1 mmol/L Chloride Level 104 101-111 mmol/L Carbon Dioxide Level 22 21-32 mmol/L Blood Urea Nitrogen 43 H 7-18 mg/dL Creatinine 1.7 H 0.5-1.3 mg/dL Glomerular Filtration Rate Calc 49 >90 mL/min Random Glucose 346 H 70-105 mg/dL Total Calcium 8.2 L 8.5-10.1 mg/dL Phosphorus Level 4.4 2.5-4.9 mg/dL Magnesium Level 1.60 L 1.80-2.40 mg/dL Total Bilirubin 0.1 L 0.2-1.0 mg/dL Aspartate Amino Transf (AST/SGOT) 20 10-37 U/L Alanine Aminotransferase (ALT/SGPT) 29 12-78 U/L Alkaline Phosphatase 200 H 50-136 U/L C-Reactive Protein, Quantitative 43.40 H 0.5-3.0 mg/L Total Protein 6.6 6.0-8.3 g/dL Albumin 1.1 L 3.5-5.0 g/dL Procalcitonin 0.12 0.05-0.5 ng/mL Bedside Glucose Comment Notified Nurse Immature Granulocyte % (Auto) 1.1 H 0-1 % Neutrophils (%) (Auto) 67.3 40.0-77.0 % Lymphocytes (%) (Auto) 22.4 21.0-51.0 % Monocytes (%) (Auto) 6.3 3.0-13.0 % Eosinophils (%) (Auto) 2.5 0.0-8.0 % Basophils (%) (Auto) 0.4 0.0-5.0 % Neutrophils # (Auto) 7.8 H 1.8-7.7 K/uL Lymphocytes # (Auto) 2.6 1.0-4.8 K/uL Monocytes # (Auto) 0.7 0.1-1.0 K/uL Eosinophils # (Auto) 0.29 0.00-0.70 K/uL Basophils # (Auto) 0.05 0.00-0.20 K/uL Absolute Immature Granulocyte (auto 0.13 0-1 K/uL Current Medications Medications (Trade) Dose Ordered Sig/Gaby Route PRN Reason Start Time Stop Time Status Last Admin Dose Admin Acetaminophen (TYLenol 325MG TAB) 650 mg Q4H PRN PO MILD PAIN (1-3) 07/27/24 02:30 08/26/24 02:29 Acetaminophen (TYLenol 325MG TAB) 650 mg Q6H PRN PO TEMPERATURE GREATER THAN 101.5 07/27/24 02:30 08/26/24 02:29 07/29/24 17:35 650 MG Acetaminophen/ Hydrocodone Bitart (NORco 5/325MG) 1 tab Q6H PRN PO MODERATE PAIN (4-6) 07/27/24 02:30 08/01/24 02:29 DC 07/30/24 15:08 1 TAB Aspirin (Aspirin 81mg Chew Tab) 81 mg AM PO 07/30/24 09:00 08/29/24 08:59 08/02/24 08:10 81 MG Atorvastatin Calcium (LIPItor 40MG) 40 mg HS PO 07/29/24 21:00 08/28/24 20:59 08/01/24 21:23 40 MG Ceftriaxone Sodium (ROCEphine 1G INJ) 1 gm Q24H IVPB 07/27/24 14:30 07/29/24 21:33 DC 07/28/24 14:22 1 GM Ceftriaxone Sodium (ROCEphine 1G INJ) 1 gm Q24H IVPB 07/29/24 22:00 08/01/24 15:41 DC 07/31/24 22:31 1 GM Clotrimazole (Lotrimin) 1 APPL TP BID BID TP 07/29/24 21:00 08/28/24 20:59 08/02/24 08:11 1 GM Dextrose (D50w) 50 ml AD PRN IV HYPOGLYCEMIA PROTOCOL 07/27/24 04:00 08/26/24 03:59 Doxycycline Hyclate 250 ml @ 125 mls/hr Q12H IV 07/27/24 16:00 07/29/24 21:35 DC 07/29/24 03:37 125 MLS/HR Doxycycline Hyclate 250 ml @ 125 mls/hr Q12H IV 07/29/24 23:59 08/01/24 22:57 DC 08/01/24 15:54 125 MLS/HR Doxycycline Hyclate 250 ml @ 125 mls/hr Q12H IV 08/02/24 04:00 08/12/24 03:59 08/02/24 03:33 125 MLS/HR Famotidine (Pepcid 20mg Tab) 20 mg Q48H PO 07/27/24 02:30 08/26/24 02:29 08/02/24 02:29 20 MG Ferrous Sulfate (Ferrous Sulfate) 325 mg DAILY PO 07/30/24 09:00 08/29/24 08:59 08/02/24 08:10 325 MG Fluconazole (DiFLUCan 100 mg TAB) 100 mg DAILY PO 08/02/24 11:00 09/01/24 10:59 08/02/24 11:36 100 MG Gabapentin (NEURontin 100 mg CAP) 100 mg BID PO 07/29/24 21:00 08/28/24 20:59 08/02/24 08:10 100 MG Glucagon (Glucagon 1mg Kit) 1 mg AD PRN IM HYPOGLYCEMIA PROTOCOL 07/27/24 04:00 08/26/24 03:59 Home Med (Home Medication) DAPAGLIFLOZIN 5MG TAB DAILY PO 07/30/24 09:00 08/29/24 08:59 08/02/24 08:11 1 EACH Hydromorphone HCl (DiLAUDid 0.5MG INJ) 0.5 mg Q3H PRN IVP SEVERE PAIN (7-10) 08/01/24 19:30 08/06/24 19:29 08/02/24 06:20 0.5 MG Hydromorphone HCl (DiLAUDid 0.5MG INJ) 0.5 mg Q3H3 PRN IVP SEVERE PAIN (7-10) 07/27/24 13:30 08/01/24 13:29 DC 07/31/24 05:57 0.5 MG Insulin Glargine (LANtus 100 UNITS/ML 10 ML VIAL) 12 units HS SQ 07/30/24 21:00 08/29/24 20:59 08/01/24 21:27 12 UNITS Insulin Human Regular (humuLIN R 100 UNIT/ML 3ML) INSULIN SLIDING SCAL... ACHS SQ 07/27/24 07:30 08/26/24 07:29 08/02/24 11:40 5 UNIT Lactulose (Constulose 20gm/ 30ml Udcup) 20 gm BID PRN PO CONSTIPATION 07/30/24 08:30 08/29/24 08:29 07/30/24 09:00 20 GM Magnesium Sulfate 50 ml @ 0 mls/hr PROTOCOL IV 07/27/24 10:00 07/27/24 13:42 DC Magnesium Sulfate 50 ml @ 0 mls/hr PROTOCOL IV 07/27/24 14:00 07/30/24 08:49 DC 07/30/24 06:27 25 MLS/HR Magnesium Sulfate 50 ml @ 0 mls/hr PROTOCOL IV 07/30/24 09:00 08/29/24 08:59 07/31/24 08:45 25 MLS/HR Magnesium Sulfate 50 ml @ 0 mls/hr PROTOCOL PRN IV OTHER [SEE ORDER COMMENTS] 07/27/24 04:00 07/27/24 13:42 DC 07/27/24 07:59 12.5 MLS/HR Meropenem (Merrem 1gm) 1 gm Q12H IVPB 07/31/24 15:30 08/10/24 15:29 08/02/24 02:28 1 GM Ondansetron HCl (zoFRAN 4MG INJ) 4 mg Q6H PRN IV NAUSEA/VOMITING 07/27/24 02:30 08/26/24 02:29 Piperacillin Sod/ Tazobactam Sod 50 ml @ 12.5 mls/hr Q8H IV 07/27/24 05:00 07/27/24 14:15 DC 07/27/24 12:14 12.5 MLS/HR Potassium Chloride 100 ml @ 100 mls/hr AD PRN IV POTASSIUM PROTOCOL 07/27/24 04:00 08/26/24 03:59 Potassium Chloride (K-Dur 10meq Sr Tab) 10 meq AD PRN PO POTASSIUM PROTOCOL 07/30/24 06:30 08/26/24 03:59 07/31/24 08:40 10 MEQ Potassium Chloride (K-Dur/Klor-Con 20meq) 10 meq AD PRN PO POTASSIUM PROTOCOL 07/27/24 04:00 07/30/24 06:22 DC 07/29/24 08:07 10 MEQ Potassium Chloride (KCl 10% Elixir 20meq/15ml) 10 meq AD PRN PO POTASSIUM PROTOCOL 07/27/24 04:00 08/26/24 03:59 Sodium Bicarbonate (Sodium Bicarbonate) 650 mg TID PRN PO INDIGESTION 07/27/24 12:00 08/26/24 11:59 Sodium Chloride 1,000 ml @ 0 mls/hr Q0M IV 08/01/24 12:00 08/31/24 11:59 Sodium Chloride 1,000 ml @ 100 mls/hr Q10H IV 07/27/24 03:30 07/30/24 15:05 DC 07/30/24 12:31 100 MLS/HR Tamsulosin HCl (FloMAX) 0.4 mg DAILY PO 07/28/24 09:00 08/27/24 08:59 08/02/24 08:10 0.4 MG Vancomycin HCl 250 ml @ 125 mls/hr ONCE IV 07/27/24 02:30 07/27/24 02:32 DC Vancomycin HCl 250 ml @ 125 mls/hr Q24H IV 07/28/24 01:00 07/27/24 14:15 DC Vancomycin HCl (Vancomycin Protocol) 1 each AD IV 07/27/24 00:00 07/27/24 14:21 DC Vitamin B Complex/ Vit C/Folic Acid (Nephrovite Tablet) 1 cap DAILY PO 07/28/24 09:00 08/27/24 08:59 08/02/24 08:10 1 CAP DIAGNOSTICS / RADIOLOGY: [ ] ASSESSMENT: Suspecting sepsis secondary right scrotal abscess, POA Epididymal orchitis, left side with abscess, POA Right testicular cellulitis POA Urinary retention requiring Thomas catheter POA Acute kidney injury with CKD POA improving Hypertension POA Acute leukocytosis POA improving Microcytic hypochromic anemia iron deficiency POA Acute thrombocytosis POA Uncontrolled diabetes POA Hyperlipidemia POA Morbid Obesity POA Coronary artery disease POA Severe Protein calorie Malnutrition PAD with hx of AKA to the left side Obesity Hypoventilation Syndrome Metabolic acidosis improving electrolytes derangement: hypomagnesemia History Nephrotic syndrome functional decline POA Hallucination not present POA PLAN: Admit: Medical floor condition: Guarded Status: Full IVF: NS at 75 mL/hour Consultants mechanical systems engineer's, Infectious Disease, Urology and psychiatry Antibiotics: Antibiotics changed to Merrem been1 g every12 hours leukocytosis improving. Procedure I and D of scrotal mass with wound VAC postop day one Wound cultures scrotal drainage was sent for cultures we will follow-up Labs cbc, cmp, mag+ Inflammatory markers every other day Avoid NSAIDs strict I&O we will monitor renal function we will follow mechanical systems engineer's recommendations Thomas care Replace electrolytes as needed as per protocol to keep potassium above 4.0 magnesium 2.0. We will monitor H&H trend to keep hemoglobin above 7.0 vitamin B complex vitamin C folic acid one tablet daily. Bicarb po t.i.d. bowel regiment: lactulose 20 gm PO BID PRN constipation Pain management: Gabapentin 100 t.i.d.. [place] 5/325 p.o. as needed for pain. Supportive measures: DVT ppx, GI ppx PT services out of bed to chair Offloading self repositioning elevate scrotum with scrotal support. Supervising MD: Dr. Tato Guzman c/d This document was generated in part using voice recognition software, occasional wrong word or sound alike substitutions may have occurred due to the inherent limitations of voice recognition software. Read the chart carefully and recognize using context, where the substitutions have occurred. Although every effort was made to edit the content, allergist/pediatric pulmonologist and typing errors may occur ATTESTATION BY PHYSICIAN I have seen and examined the patient. I reviewed the documentation, medical decision making, and treatment plan as noted by the mid-level provider above. I agree with the findings and plan of care. MIHIR HUBBARD MD, ELIZABETH NP Aug 02, 2024 12:28
--- NOTE | 2024-08-02 14:03 | NUR ---
[facility] Consult: Patient assessed by wound healing team. Patient s/p sx 3-5-25 with wound placement, wound vac intact to right scrotum/perineum. Recommendations provided to primary nurse. Education provided. Addendum: 08/02/24 at 1405 by MATTEO LEARY RN RN/HAMI Amended: Links added.
--- NOTE | 2024-08-02 15:48 | HMCIMG ---
US VENOUS DOPPLER UNILATERAL HISTORY: Right arm pain COMPARISON: None TECHNIQUE: Right upper extremity venous Doppler ultrasound study was performed. FINDINGS: The right subclavian, axillary, and brachial veins are visualized. Normal flow with augmentation and compressibilities are demonstrated. Right cephalic vein is patent. Noncompressible thrombus is seen in the right basilic vein consistent with superficial thrombophlebitis. IMPRESSION: 1. No evidence of deep venous thrombosis is seen. Noncompressible thrombus is seen in the right basilic vein consistent with superficial thrombophlebitis.
--- NOTE | 2024-08-02 16:47 | NUR ---
Discharge Planning: Pt. states his spouse has not decided on a SNF yet. States to come back in the morning. Bennie, patient's nurse is at bedside.
--- NOTE | 2024-08-02 21:35 | PN ---
INFECTIOUS DISEASE PROGRESS NOTE Date of Service: Aug 02, 2024 SUBJECTIVE: This is a 49-year-old male patient presented to the hospital with chief complaint of right testicle pain. A scrotal ultrasound done on admission showed mild right epididymal orchitis. Patient was seen and examined at bedside in room 317. Patient is awake, alert and oriented x3. Patient is status post I&D and debridement of the right scrotal abscess with a wound VAC application day # 1. No fever, temperature 97.5 and the WBC is 14.5. Urine culture came back positive for yeast species. We will start patient on fluconazole 100 mg p.o. daily and continues on on ceftriaxone, Meropenem and doxycycline. We will continue to follow up up on the scrotal drainage culture results. We will continue to monitor patient's care. PHYSICAL EXAM EYES: Anicteric. Pupils equal and reactive. Right eye blindness. HENT: No oral thrush seen, moist Oral mucosa. NECK: Supple, no JVD or thyromegaly. LUNGS: Good air entry. No rales, no rhonchi. CARDIOVASCULAR: S1, S2 regular. No murmur heard. ABDOMEN: Soft, non tender, bowel sounds present, no organomegaly. CENTRAL NERVOUS SYSTEM: Awake, alert, oriented x 3. SKIN: No rashes, no swelling. LYMPHATICS: No peripheral lymphadenopathy. MUSCULOSKELETAL: No joint swelling, erythema or tenderness. EXTREMITIES: No cyanosis or clubbing. 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 BACK: No deformity, no pressure ulcer. GENITOURINARY: No dysuria or hematuria. Thomas catheter. SCROTUM: Right Scrotal abscess, status post I&D with wound VAC placement. Vital Sign (Last 12 Hours) 08/02/24 08/02/24 08/02/24 12:00 16:00 19:00 Temp 97.7 97.9 97.9 Pulse 72 77 77 Resp 20 20 20 B/P (MAP) 135/77 124/60 142/68 Pulse Ox 100 99 98 O2 Delivery Room Air Nasal Cannula Nasal Cannula O2 Flow Rate 3.0 3.0 Intake & Output (last 24hrs) 08/01/24 08/01/24 08/02/24 15:00 23:00 07:00 Intake Total 200.0 ml Output Total 700 ml 450 ml 1200 ml Balance -500.0 ml -450 ml -1200 ml LABS: Laboratory: Test 08/02/24 19:02 08/02/24 05:26 08/01/24 22:40 08/01/24 05:06 Range/Units Whole Blood Glucose 295 H 70-110 MG/DL White Blood Count 14.5 H 4.8-10.8 K/uL Red Blood Count 3.81 L 4.50-6.20 MIL/uL Hemoglobin 9.1 L 14.0-18.0 g/dL Hematocrit 29.5 L 42-54 % Mean Corpuscular Volume 77.4 L 79-99 fL Mean Corpuscular Hemoglobin 23.9 L 27.0-33.0 pg Mean Corpuscular Hemoglobin Concent 30.8 L 32.0-36.0 g/dL Red Cell Distribution Width 14.4 11.0-15.5 % Platelet Count 660 H 130-400 K/uL Mean Platelet Volume 9.3 7.5-10.5 fL Nucleated Red Blood Cells 0.0 0.0-0.19 % Sodium Level 135 L 136-145 mmol/L Potassium Level 4.1 3.5-5.1 mmol/L Chloride Level 104 101-111 mmol/L Carbon Dioxide Level 22 21-32 mmol/L Blood Urea Nitrogen 43 H 7-18 mg/dL Creatinine 1.7 H 0.5-1.3 mg/dL Glomerular Filtration Rate Calc 49 >90 mL/min Random Glucose 346 H 70-105 mg/dL Total Calcium 8.2 L 8.5-10.1 mg/dL Phosphorus Level 4.4 2.5-4.9 mg/dL Magnesium Level 1.60 L 1.80-2.40 mg/dL Total Bilirubin 0.1 L 0.2-1.0 mg/dL Aspartate Amino Transf (AST/SGOT) 20 10-37 U/L Alanine Aminotransferase (ALT/SGPT) 29 12-78 U/L Alkaline Phosphatase 200 H 50-136 U/L C-Reactive Protein, Quantitative 43.40 H 0.5-3.0 mg/L Total Protein 6.6 6.0-8.3 g/dL Albumin 1.1 L 3.5-5.0 g/dL Procalcitonin 0.12 0.05-0.5 ng/mL Bedside Glucose Comment Notified Nurse Immature Granulocyte % (Auto) 1.1 H 0-1 % Neutrophils (%) (Auto) 67.3 40.0-77.0 % Lymphocytes (%) (Auto) 22.4 21.0-51.0 % Monocytes (%) (Auto) 6.3 3.0-13.0 % Eosinophils (%) (Auto) 2.5 0.0-8.0 % Basophils (%) (Auto) 0.4 0.0-5.0 % Neutrophils # (Auto) 7.8 H 1.8-7.7 K/uL Lymphocytes # (Auto) 2.6 1.0-4.8 K/uL Monocytes # (Auto) 0.7 0.1-1.0 K/uL Eosinophils # (Auto) 0.29 0.00-0.70 K/uL Basophils # (Auto) 0.05 0.00-0.20 K/uL Absolute Immature Granulocyte (auto 0.13 0-1 K/uL ASSESSMENT: Scrotal wall abscess with cellulitis, status post I&D and debridement of the right scrotal abscess with a wound VAC application on 08/01/2024. Right epididymal orchitis Urinary tract infection with yeast species. Leukocytosis. Acute renal failure. Diabetes mellitus. PLAN: Start fluconazole 100 mg p.o. daily. Continue Meropenem as recommended by urologist. Continue ceftriaxone. Continue doxycycline. Continue GI prophylaxis. Continue pain management. Continue monitoring glucose levels. We will follow up on the culture results. This case was reviewed and discussed with my supervising physician and the above assessment and plan was formulated and agreed upon. ATTESTATION BY PHYSICIAN I have seen and examined the patient. I reviewed the documentation, medical decision making, and treatment plan as noted by the mid-level provider above. I agree with the findings and plan of care. GRANT SUMMERS MD, MIRTA L [facility] Aug 02, 2024 21:35
--- NOTE | 2024-08-02 21:43 | PN ---
INFECTIOUS DISEASE PROGRESS NOTE Date of Service: Jul 30, 2024 SUBJECTIVE: This is a 49-year-old male patient presented to the hospital with chief complaint of right testicle pain. A scrotal ultrasound done on admission showed mild right epididymal orchitis. Patient was seen and examined at bedside in room 317. Patient is awake, alert and oriented x3. The right testicle and scrotum is very swollen and erythematous. Patient has been evaluated by urology. Patient had a low-grade fever last night of 99.7 and the current temperature is 99.0. The WB C remains elevated at 17.6. Will continue on ceftriaxone and doxycycline. We will continue to monitor patient's care. PHYSICAL EXAM EYES: Anicteric. Pupils equal and reactive. Right eye blindness. HENT: No oral thrush seen, moist Oral mucosa. NECK: Supple, no JVD or thyromegaly. LUNGS: Good air entry. No rales, no rhonchi. CARDIOVASCULAR: S1, S2 regular. No murmur heard. ABDOMEN: Soft, non tender, bowel sounds present, no organomegaly. CENTRAL NERVOUS SYSTEM: Awake, alert, oriented x 3. SKIN: No rashes, no swelling. LYMPHATICS: No peripheral lymphadenopathy. MUSCULOSKELETAL: No joint swelling, erythema or tenderness. EXTREMITIES: No cyanosis or clubbing. 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 BACK: No deformity, no pressure ulcer. GENITOURINARY: No dysuria or hematuria. Thomas catheter. SCROTUM: Right Scrotal abscess. Vital Sign (Last 12 Hours) 08/02/24 08/02/24 08/02/24 12:00 16:00 19:00 Temp 97.7 97.9 97.9 Pulse 72 77 77 Resp 20 20 20 B/P (MAP) 135/77 124/60 142/68 Pulse Ox 100 99 98 O2 Delivery Room Air Nasal Cannula Nasal Cannula O2 Flow Rate 3.0 3.0 Intake & Output (last 24hrs) 08/01/24 08/01/24 08/02/24 15:00 23:00 07:00 Intake Total 200.0 ml Output Total 700 ml 450 ml 1200 ml Balance -500.0 ml -450 ml -1200 ml LABS: Laboratory: Test 08/02/24 19:02 08/02/24 05:26 08/01/24 22:40 08/01/24 05:06 Range/Units Whole Blood Glucose 295 H 70-110 MG/DL White Blood Count 14.5 H 4.8-10.8 K/uL Red Blood Count 3.81 L 4.50-6.20 MIL/uL Hemoglobin 9.1 L 14.0-18.0 g/dL Hematocrit 29.5 L 42-54 % Mean Corpuscular Volume 77.4 L 79-99 fL Mean Corpuscular Hemoglobin 23.9 L 27.0-33.0 pg Mean Corpuscular Hemoglobin Concent 30.8 L 32.0-36.0 g/dL Red Cell Distribution Width 14.4 11.0-15.5 % Platelet Count 660 H 130-400 K/uL Mean Platelet Volume 9.3 7.5-10.5 fL Nucleated Red Blood Cells 0.0 0.0-0.19 % Sodium Level 135 L 136-145 mmol/L Potassium Level 4.1 3.5-5.1 mmol/L Chloride Level 104 101-111 mmol/L Carbon Dioxide Level 22 21-32 mmol/L Blood Urea Nitrogen 43 H 7-18 mg/dL Creatinine 1.7 H 0.5-1.3 mg/dL Glomerular Filtration Rate Calc 49 >90 mL/min Random Glucose 346 H 70-105 mg/dL Total Calcium 8.2 L 8.5-10.1 mg/dL Phosphorus Level 4.4 2.5-4.9 mg/dL Magnesium Level 1.60 L 1.80-2.40 mg/dL Total Bilirubin 0.1 L 0.2-1.0 mg/dL Aspartate Amino Transf (AST/SGOT) 20 10-37 U/L Alanine Aminotransferase (ALT/SGPT) 29 12-78 U/L Alkaline Phosphatase 200 H 50-136 U/L C-Reactive Protein, Quantitative 43.40 H 0.5-3.0 mg/L Total Protein 6.6 6.0-8.3 g/dL Albumin 1.1 L 3.5-5.0 g/dL Procalcitonin 0.12 0.05-0.5 ng/mL Bedside Glucose Comment Notified Nurse Immature Granulocyte % (Auto) 1.1 H 0-1 % Neutrophils (%) (Auto) 67.3 40.0-77.0 % Lymphocytes (%) (Auto) 22.4 21.0-51.0 % Monocytes (%) (Auto) 6.3 3.0-13.0 % Eosinophils (%) (Auto) 2.5 0.0-8.0 % Basophils (%) (Auto) 0.4 0.0-5.0 % Neutrophils # (Auto) 7.8 H 1.8-7.7 K/uL Lymphocytes # (Auto) 2.6 1.0-4.8 K/uL Monocytes # (Auto) 0.7 0.1-1.0 K/uL Eosinophils # (Auto) 0.29 0.00-0.70 K/uL Basophils # (Auto) 0.05 0.00-0.20 K/uL Absolute Immature Granulocyte (auto 0.13 0-1 K/uL ASSESSMENT: Right epididymal orchitis. Scrotal wall cellulitis. Urinary tract infection. Leukocytosis. Acute renal failure. Diabetes mellitus. PLAN: Continue ceftriaxone. Continue doxycycline. Continue GI prophylaxis. Continue pain management. Continue monitoring glucose levels. We will follow up on the culture results. Urology has evaluated patient. This case was reviewed and discussed with my supervising physician and the above assessment and plan was formulated and agreed upon. ATTESTATION BY PHYSICIAN I have seen and examined the patient. I reviewed the documentation, medical decision making, and treatment plan as noted by the mid-level provider above. I agree with the findings and plan of care. GRANT SUMMERS MD, [facility] Aug 02, 2024 21:43
[2024-08-03] VITALS (7 sets, daily range): BP systolic 124–143; BP diastolic 71–78; PULSE 75–78; RESP 18–19; TEMP 97.7–98.6; O2SAT 96–98
[2024-08-03 05:47] LABS: HEMATOCRIT 27.9 % (42-54); MEAN CORPUSCULAR HEMOGLOBIN 23.9 pg (27.0-33.0); MEAN CORPUSCULAR HGB CONC 30.5 g/dL (32.0-36.0); MEAN CORPUSCULAR VOLUME 78.4 fL (79-99); PLATELET COUNT (AUTO) 648 K/uL (130-400); RED BLOOD CELL COUNT(AUTO) 3.56 MIL/uL (4.50-6.20); RED CELL DISTRIBUTION WIDTH 14.8 % (11.0-15.5); WHITE BLOOD COUNT (AUTO) 11.8 K/uL (4.8-10.8)
[2024-08-03 06:04] LABS: ALBUMIN 1.3 g/dL (3.5-5.0); BILIRUBIN,TOTAL 0.1 mg/dL (0.2-1.0); CREATININE 1.6 mg/dL (0.5-1.3); MAGNESIUM 1.5 mg/dL (1.80-2.40); PHOSPHORUS 4.1 mg/dL (2.5-4.9); POTASSIUM 3.8 mmol/L (3.5-5.1); TOTAL PROTEIN, SERUM 6.8 g/dL (6.0-8.3)
--- NOTE | 2024-08-03 08:42 | PN ---
SUBJECTIVE: A 49-year-old male who has had a prolonged hospital course. The patient with a history of diabetes mellitus and hypertension. The patient has vascular disease, status post AKA in the past. The patient presented to the hospital and found to have testicular cellulitis. The patient remains on the broad spectrum IV antibiotics. The patient is also being seen by Urology. He is being seen as a followup visit for all the above. He has a history of known chronic renal insufficiency. REVIEW OF SYSTEMS: GENERAL: He is feeling weak and tired. HEENT: No change in vision. No change in hearing. CARDIOVASCULAR: There is no current chest pain or palpitations. PULMONARY: There is no shortness of breath. GASTROINTESTINAL: He is tolerating diet. MUSCULOSKELETAL: Complains of weakness. PHYSICAL EXAMINATION: VITAL SIGNS: Blood pressure is 141/71, pulse in the 70s, afebrile. GENERAL: Chronically ill male, lying in bed on medical floor. HEENT: Head is atraumatic. Pupils equal, roving to light. Oropharynx is without exudate. Nares clear. NECK: There is no JVP. There is no thyromegaly, no mass. CARDIOVASCULAR: Regular. There is no S3, S4 gallop. LUNGS: Coarse with equal thoracic movement. ABDOMEN: Soft. EXTREMITIES: Revealed no clubbing, no cyanosis. NEUROLOGIC: He is awake. He is alert. LABORATORY DATA: Sodium 136, potassium 3.8, BUN 44, creatinine 1.6. Hemoglobin 9.5, hematocrit 26. IMPRESSION: * Acute on chronic renal failure. * Cellulitis. * Diabetes mellitus. * Hypertension. * Anemia. PLAN: The patient remains on the broad spectrum IV antibiotics. The patient with a history of known renal dysfunction. Creatinine has been elevated. He remains on the antibiotics as prescribed. We will continue to follow closely. Once the patient is discharged, follow up in the [facility]. TID: [id number] RECEIPT: [id number]
--- NOTE | 2024-08-03 09:09 | PN ---
[facility] PROGRESS NOTE Date of Service: Aug 03, 2024 Time of Service: 09:06 SUBJECTIVE: [ ] This is a 49-year-old that was admitted early this morning with chief complaints of testicular cellulitis. Patient is fully awake alert oriented x3 patient has a Thomas catheter secondary to urinary retention were being urology started patient on Flomax. Patient has no history of urinary retention. GEOVANNI on this admission bungy jump master following. Patient has a history of nephrotic syndrome we will discontinue vancomycin and Zosyn. 07/28/24 patient is seen patient has been having temperature T-max 100.9 and leukocytosis being followed by infectious disease. Patient is fully awake alert oriented x3 07/29/24 patient appears to be doing better however continues with low-grade temp ID following for antibiotics stewardship. Leukocytosis trending down slowly. Right testicle erythema and swollen , tender to palpate. continue with indwelling catheter tender to. RN reached out to Urology pending consult. 07/30/24 we repeat ultrasound testicular pending results. Leukocytosis is persistent however is afebrile and on empiric antibiotics. The patient offers no new complaints. 07/31/2024 patient is lying in bed patient was encouraged to get out of bed to chair as tolerated. Primary nurse reports scrotal abscess is now draining and cultures were collected. Patient continues with leukocytosis ID following on empiric antibiotics. Urology recommending Merrem we will see what ID if patient is a candidate for Merrem. No fevers last night tolerating antibiotics reports no diarrhea. 08/01/24 patient seen and examined. Waiting for wound cultures. Urology plan to do I and D and debridement of the right scrotal abscess with possible wound VAC. Case management for discharge planning. 08/02/34 was seen earlier, patient is fully awake alert oriented x3. Postop day one tolerating wound VAC. We had a long discussion with patient in regards he might need to return back to LTAC. There are multiple concerns with patient and significant other to return back to facility. Otherwise patient has been afebrile leukocytosis trending down. All questions were addressed we will discuss case with case management. 08/03/24 patient is seen patient recuperating well postop day two tolerating wound VAC. Denied chest pain or shortness for breath. Waiting for intraoperative cultures. Sugars are elevated we will start premeal insulin continue with long- acting. REVIEW OF SYSTEMS CONSTITUTIONAL: Denies fevers, chills, or night sweats. No unintentional weight loss reported. NEUROLOGICAL: Denies headache, amaurosis fugax, motor weakness, sensory deficit, vertigo/spinning sensation, gait abnormalities, or tremors. 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 CARDIOVASCULAR: Denies any exertional angina, dyspnea on exertion, orthopnea, paroxysmal nocturnal dyspnea, palpitations, life-threatening arrhythmias, claudication. PULMONARY: Denies any shortness of breath, cough, phlegm/sputum, hemoptysis, pleuritic chest pain. SLEEP: Denies morning headaches, daytime somnolence or napping. Denies difficulty falling asleep, staying asleep, waking from sleep. Denies knowledge of snoring. GASTROINTESTINAL: Denies any type of dysphagia to either liquids or solids. Denies nausea, vomiting, pyrosis, early satiety, abdominal pain, diarrhea, constipation, or changes in stool consistency or caliber. Denies coffee-ground emesis, hematemesis, hematochezia, or melanotic stools. GENITOURINARY: Denies frequency, urgency, nocturia, hematuria or incontinence (Storage/Irritative symptoms.) Low urinary stream, straining to void, urinary intermittency or hesitancy, splitting of the voiding stream, terminal dribbling. ENDOCRINOLOGIC: Denies polyuria, polydipsia, polyphagia or heat/cold intolerances. HEMATOLOGIC: Denies thrombophilia/previous clots, or coagulopathy/bleeding disorders. ONCOLOGIC: Denies personal history of malignancy. DERMATOLOGIC: Denies rashes or pruritus. PSYCHIATRIC: Denies any suicidal or homicidal ideation. Denies hallucinations. PHYSICAL EXAM GENERAL APPEARANCE: The patient is awake, alert, and oriented, in no acute cardiopulmonary distress. NEUROLOGICAL: Cranial nerves II-XII grossly intact. Motor is 5/5 in bilateral upper and lower extremities proximal to distal. No sensory deficits. HEENT: Face is symmetric. Pupils are equal and reactive. Extraocular movements are intact. NECK: Supple. No JVD. No thyromegaly. No submental, submandibular, pre- /postauricular, occipital or supraclavicular lymphadenopathy. CHEST: Normal chest expansion. No Telemetry. LUNGS: Absence of any rales, rhonchi or any wheezing. CARDIOVASCULAR: Regular. S1 and S2 normal. No appreciable rubs, murmurs or gallops. ABDOMEN: Soft, nontender, and nondistended. There is no rebound, voluntary guarding, or rigidity. : Deferred. No Thomas. EXTREMITIES: Non-edematous and not cyanotic. No clubbing. Good capillary refill. SKIN: Swollen testicles Vital Signs (last 8hr) Date Time Temp Pulse Resp B/P (MAP) Pulse Ox O2 Delivery O2 Flow Rate FiO2 08/03/24 08:00 98.1 78 18 137/71 98 Nasal Cannula 2.0 08/03/24 03:17 97.7 78 18 141/71 98 Nasal Cannula LABS: Laboratory: Test 08/03/24 05:23 08/03/24 05:17 08/02/24 05:26 08/01/24 22:40 Range/Units Whole Blood Glucose 352 H 70-110 MG/DL White Blood Count 11.8 H 4.8-10.8 K/uL Red Blood Count 3.56 L 4.50-6.20 MIL/uL Hemoglobin 8.5 L 14.0-18.0 g/dL Hematocrit 27.9 L 42-54 % Mean Corpuscular Volume 78.4 L 79-99 fL Mean Corpuscular Hemoglobin 23.9 L 27.0-33.0 pg Mean Corpuscular Hemoglobin Concent 30.5 L 32.0-36.0 g/dL Red Cell Distribution Width 14.8 11.0-15.5 % Platelet Count 648 H 130-400 K/uL Mean Platelet Volume 9.3 7.5-10.5 fL Nucleated Red Blood Cells 0.0 0.0-0.19 % Red Blood Cell Morphology See comments Sodium Level 136 136-145 mmol/L Potassium Level 3.8 3.5-5.1 mmol/L Chloride Level 103 101-111 mmol/L Carbon Dioxide Level 25 21-32 mmol/L Blood Urea Nitrogen 44 H 7-18 mg/dL Creatinine 1.6 H 0.5-1.3 mg/dL Glomerular Filtration Rate Calc 53 >90 mL/min Random Glucose 376 H 70-105 mg/dL Total Calcium 8.0 L 8.5-10.1 mg/dL Phosphorus Level 4.1 2.5-4.9 mg/dL Magnesium Level 1.50 L 1.80-2.40 mg/dL Total Bilirubin 0.1 L 0.2-1.0 mg/dL Aspartate Amino Transf (AST/SGOT) 21 10-37 U/L Alanine Aminotransferase (ALT/SGPT) 33 12-78 U/L Alkaline Phosphatase 192 H 50-136 U/L Total Protein 6.8 6.0-8.3 g/dL Albumin 1.3 L 3.5-5.0 g/dL C-Reactive Protein, Quantitative 43.40 H 0.5-3.0 mg/L Procalcitonin 0.12 0.05-0.5 ng/mL Bedside Glucose Comment Notified Nurse Current Medications Medications (Trade) Dose Ordered Sig/Gaby Route PRN Reason Start Time Stop Time Status Last Admin Dose Admin Acetaminophen (TYLenol 325MG TAB) 650 mg Q4H PRN PO MILD PAIN (1-3) 07/27/24 02:30 08/26/24 02:29 Acetaminophen (TYLenol 325MG TAB) 650 mg Q6H PRN PO TEMPERATURE GREATER THAN 101.5 07/27/24 02:30 08/26/24 02:29 07/29/24 17:35 650 MG Acetaminophen/ Hydrocodone Bitart (NORco 5/325MG) 1 tab Q6H PRN PO MODERATE PAIN (4-6) 07/27/24 02:30 08/01/24 02:29 DC 07/30/24 15:08 1 TAB Aspirin (Aspirin 81mg Chew Tab) 81 mg AM PO 07/30/24 09:00 08/29/24 08:59 08/02/24 08:10 81 MG Atorvastatin Calcium (LIPItor 40MG) 40 mg HS PO 07/29/24 21:00 08/28/24 20:59 08/02/24 21:33 40 MG Ceftriaxone Sodium (ROCEphine 1G INJ) 1 gm Q24H IVPB 07/27/24 14:30 07/29/24 21:33 DC 07/28/24 14:22 1 GM Ceftriaxone Sodium (ROCEphine 1G INJ) 1 gm Q24H IVPB 07/29/24 22:00 08/01/24 15:41 DC 07/31/24 22:31 1 GM Clotrimazole (Lotrimin) 1 APPL TP BID BID TP 07/29/24 21:00 08/28/24 20:59 08/02/24 21:40 1 GM Dextrose (D50w) 50 ml AD PRN IV HYPOGLYCEMIA PROTOCOL 07/27/24 04:00 08/26/24 03:59 Doxycycline Hyclate 250 ml @ 125 mls/hr Q12H IV 07/27/24 16:00 07/29/24 21:35 DC 07/29/24 03:37 125 MLS/HR Doxycycline Hyclate 250 ml @ 125 mls/hr Q12H IV 07/29/24 23:59 08/01/24 22:57 DC 08/01/24 15:54 125 MLS/HR Doxycycline Hyclate 250 ml @ 125 mls/hr Q12H IV 08/02/24 04:00 08/12/24 03:59 08/03/24 04:28 125 MLS/HR Famotidine (Pepcid 20mg Tab) 20 mg Q48H PO 07/27/24 02:30 08/26/24 02:29 08/02/24 02:29 20 MG Ferrous Sulfate (Ferrous Sulfate) 325 mg DAILY PO 07/30/24 09:00 08/29/24 08:59 08/02/24 08:10 325 MG Fluconazole (DiFLUCan 100 mg TAB) 100 mg DAILY PO 08/02/24 11:00 09/01/24 10:59 08/02/24 11:36 100 MG Gabapentin (NEURontin 100 mg CAP) 100 mg BID PO 07/29/24 21:00 08/28/24 20:59 08/02/24 21:34 100 MG Glucagon (Glucagon 1mg Kit) 1 mg AD PRN IM HYPOGLYCEMIA PROTOCOL 07/27/24 04:00 08/26/24 03:59 Home Med (Home Medication) DAPAGLIFLOZIN 5MG TAB DAILY PO 07/30/24 09:00 08/29/24 08:59 08/02/24 08:11 1 EACH Hydromorphone HCl (DiLAUDid 0.5MG INJ) 0.5 mg Q3H PRN IVP SEVERE PAIN (7-10) 08/01/24 19:30 08/06/24 19:29 08/03/24 06:13 0.5 MG Hydromorphone HCl (DiLAUDid 0.5MG INJ) 0.5 mg Q3H3 PRN IVP SEVERE PAIN (7-10) 07/27/24 13:30 08/01/24 13:29 DC 07/31/24 05:57 0.5 MG Insulin Glargine (LANtus 100 UNITS/ML 10 ML VIAL) 12 units HS SQ 07/30/24 21:00 08/29/24 20:59 08/02/24 21:36 12 UNITS Insulin Human Regular (humuLIN R 100 UNIT/ML 3ML) INSULIN SLIDING SCAL... ACHS SQ 07/27/24 07:30 08/26/24 07:29 08/03/24 06:15 8 UNIT Lactulose (Constulose 20gm/ 30ml Udcup) 20 gm BID PRN PO CONSTIPATION 07/30/24 08:30 08/29/24 08:29 07/30/24 09:00 20 GM Magnesium Sulfate 50 ml @ 0 mls/hr PROTOCOL IV 07/27/24 10:00 07/27/24 13:42 DC Magnesium Sulfate 50 ml @ 0 mls/hr PROTOCOL IV 07/27/24 14:00 07/30/24 08:49 DC 07/30/24 06:27 25 MLS/HR Magnesium Sulfate 50 ml @ 0 mls/hr PROTOCOL IV 07/30/24 09:00 08/29/24 08:59 07/31/24 08:45 25 MLS/HR Magnesium Sulfate 50 ml @ 0 mls/hr PROTOCOL PRN IV OTHER [SEE ORDER COMMENTS] 07/27/24 04:00 07/27/24 13:42 DC 07/27/24 07:59 12.5 MLS/HR Meropenem (Merrem 1gm) 1 gm Q12H IVPB 07/31/24 15:30 08/10/24 15:29 08/03/24 04:28 1 GM Ondansetron HCl (zoFRAN 4MG INJ) 4 mg Q6H PRN IV NAUSEA/VOMITING 07/27/24 02:30 08/26/24 02:29 Piperacillin Sod/ Tazobactam Sod 50 ml @ 12.5 mls/hr Q8H IV 07/27/24 05:00 07/27/24 14:15 DC 07/27/24 12:14 12.5 MLS/HR Potassium Chloride 100 ml @ 100 mls/hr AD PRN IV POTASSIUM PROTOCOL 07/27/24 04:00 08/26/24 03:59 Potassium Chloride (K-Dur 10meq Sr Tab) 10 meq AD PRN PO POTASSIUM PROTOCOL 07/30/24 06:30 08/26/24 03:59 07/31/24 08:40 10 MEQ Potassium Chloride (K-Dur/Klor-Con 20meq) 10 meq AD PRN PO POTASSIUM PROTOCOL 07/27/24 04:00 07/30/24 06:22 DC 07/29/24 08:07 10 MEQ Potassium Chloride (KCl 10% Elixir 20meq/15ml) 10 meq AD PRN PO POTASSIUM PROTOCOL 07/27/24 04:00 08/26/24 03:59 Sodium Bicarbonate (Sodium Bicarbonate) 650 mg TID PRN PO INDIGESTION 07/27/24 12:00 08/26/24 11:59 Sodium Chloride 1,000 ml @ 0 mls/hr Q0M IV 08/01/24 12:00 08/31/24 11:59 Sodium Chloride 1,000 ml @ 100 mls/hr Q10H IV 07/27/24 03:30 07/30/24 15:05 DC 07/30/24 12:31 100 MLS/HR Tamsulosin HCl (FloMAX) 0.4 mg DAILY PO 07/28/24 09:00 08/27/24 08:59 08/02/24 08:10 0.4 MG Vancomycin HCl 250 ml @ 125 mls/hr ONCE IV 07/27/24 02:30 07/27/24 02:32 DC Vancomycin HCl 250 ml @ 125 mls/hr Q24H IV 07/28/24 01:00 07/27/24 14:15 DC Vancomycin HCl (Vancomycin Protocol) 1 each AD IV 07/27/24 00:00 07/27/24 14:21 DC Vitamin B Complex/ Vit C/Folic Acid (Nephrovite Tablet) 1 cap DAILY PO 07/28/24 09:00 08/27/24 08:59 08/02/24 08:10 1 CAP DIAGNOSTICS / RADIOLOGY: [ ] ASSESSMENT: Suspecting sepsis secondary right scrotal abscess, POA Epididymal orchitis, left side with abscess, POA 08/01/24 s/p I/D Right ischiorectal/perineal abscess tracking to the right hemiscrotum, 16 x 12 x 10 cm. with Wound vac Right testicular cellulitis POA Urinary retention requiring Thomas catheter POA Acute kidney injury with CKD POA improving Hypertension POA Acute leukocytosis POA improving Microcytic hypochromic anemia iron deficiency POA Acute thrombocytosis POA Uncontrolled diabetes POA Hyperlipidemia POA Morbid Obesity POA Coronary artery disease POA Severe Protein calorie Malnutrition PAD with hx of AKA to the left side Obesity Hypoventilation Syndrome Metabolic acidosis improving electrolytes derangement: hypomagnesemia History Nephrotic syndrome functional decline POA Hallucination not present POA Uncontrolled type II diabetes with hyperglycemia PLAN: Admit: Medical floor condition: Guarded Status: Full IVF: NS at 75 mL/hour Consultants bungy jump master's, Infectious Disease, Urology and psychiatry Antibiotics: Antibiotics changed to Merrem been1 g every12 hours leukocytosis improving. Procedure I and D of scrotal mass with wound VAC postop day 2 Intraoperative Wound cultures scrotal drainage was sent for cultures we will follow-up Continue with local wound care wound VAC. Labs cbc, cmp, mag+ Inflammatory markers every other day Continue a.c. HS with sliding scale started premeal5 units of regular and currently on [id number] units Lantus b.i.d. Avoid NSAIDs strict I&O we will monitor renal function we will follow bungy jump master's recommendations Thomas care Replace electrolytes as needed as per protocol to keep potassium above 4.0 magnesium 2.0. We will monitor H&H trend to keep hemoglobin above 7.0 vitamin B complex vitamin C folic acid one tablet daily. Bicarb po t.i.d. bowel regiment: lactulose 20 gm PO BID PRN constipation Pain management: Gabapentin 100 t.i.d.. Bedias 5/325 p.o. as needed for pain. Supportive measures: DVT ppx, GI ppx PT services out of bed to chair Offloading self repositioning elevate scrotum with scrotal support. Supervising MD: Dr. Tato Guzman c/d case mangagement: SNF versus LTAC for wound vac management and IV antibiotics This document was generated in part using voice recognition software, occasional wrong word or sound alike substitutions may have occurred due to the inherent limitations of voice recognition software. Read the chart carefully and recognize using context, where the substitutions have occurred. Although every effort was made to edit the content, sales and customer relations rep and typing errors may occur ATTESTATION BY PHYSICIAN I have seen and examined the patient. I reviewed the documentation, medical decision making, and treatment plan as noted by the mid-level provider above. I agree with the findings and plan of care. MIHIR HUBBARD MD, ELIZABETH NP Aug 03, 2024 09:09
[2024-08-03] MEDS ORDERED: MAGNESIUM 2GM PREMIX 50ML 50 ML IV SCH (09:30)
[2024-08-03] MEDS: INSULIN humuLIN R 100 UNIT/ML 3ML SQ SCH (12:15)
--- NOTE | 2024-08-03 12:52 | NUR ---
[facility] Consult: Patient assessed by wound healing team. See wound assessment. Assessment and recommendations provided to primary nurse. Education provided. Wound vac changed. Addendum: 08/03/24 at 1327 by MATTEO LEARY RN RN/ Amended: Links added.
[2024-08-03] MEDS: hydroMORPHone 1 MG INJ IVP STA (13:21)
[2024-08-03] MEDS: hydroMORPHone 1 MG INJ ONE (13:21)
--- NOTE | 2024-08-03 15:18 | PN ---
INFECTIOUS DISEASE PROGRESS NOTE Date of Service: Aug 03, 2024 SUBJECTIVE: This is a 49-year-old male patient presented to the hospital with chief complaint of right testicle pain. A scrotal ultrasound done on admission showed mild right epididymal orchitis. Patient was seen and examined at bedside in room 317. Patient is awake, alert and oriented x3. Patient is status post I&D and debridement of the right scrotal abscess with a wound VAC application on 08/01/2024. The wound VAC dressing was changed by the wound care team this morning. No report yet on the scrotal abscess cultures. No growth on the blood cultures. Patient is afebrile this morning, temperature is 98.2 and the WBC is 11.8. Continues on Meropenem, fluconazole ceftriaxone and doxycycline. Dr. Summers spoke to patient that the best option is for him is to go to [facility] where he can get his IV antibiotics and where his wound can be monitored and wound debridement can be done if it becomes necessary. We will continue to monitor patient's care. PHYSICAL EXAM EYES: Anicteric. Pupils equal and reactive. Right eye blindness. HENT: No oral thrush seen, moist Oral mucosa. NECK: Supple, no JVD or thyromegaly. LUNGS: Good air entry. No rales, no rhonchi. CARDIOVASCULAR: S1, S2 regular. No murmur heard. ABDOMEN: Soft, non tender, bowel sounds present, no organomegaly. CENTRAL NERVOUS SYSTEM: Awake, alert, oriented x 3. SKIN: No rashes, no swelling. LYMPHATICS: No peripheral lymphadenopathy. MUSCULOSKELETAL: No joint swelling, erythema or tenderness. EXTREMITIES: No cyanosis or clubbing. 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 BACK: No deformity, no pressure ulcer. GENITOURINARY: No dysuria or hematuria. Thomas catheter. SCROTUM: Right Scrotal abscess, status post I&D with wound VAC placement. Vital Sign (Last 12 Hours) 08/03/24 08/03/24 08/03/24 03:17 08:00 12:00 Temp 97.7 98.1 98.2 Pulse 78 78 75 Resp 18 18 18 B/P (MAP) 141/71 137/71 124/76 Pulse Ox 98 98 98 O2 Delivery Nasal Cannula Nasal Cannula Nasal Cannula O2 Flow Rate 2.0 2.0 Intake & Output (last 24hrs) 08/02/24 08/02/24 08/03/24 15:00 23:00 07:00 Output Total 1880 ml 2000 ml Balance -1880 ml -2000 ml LABS: Laboratory: Test 08/03/24 11:49 08/03/24 05:17 08/02/24 05:26 08/01/24 22:40 Range/Units Whole Blood Glucose 266 H 70-110 MG/DL White Blood Count 11.8 H 4.8-10.8 K/uL Red Blood Count 3.56 L 4.50-6.20 MIL/uL Hemoglobin 8.5 L 14.0-18.0 g/dL Hematocrit 27.9 L 42-54 % Mean Corpuscular Volume 78.4 L 79-99 fL Mean Corpuscular Hemoglobin 23.9 L 27.0-33.0 pg Mean Corpuscular Hemoglobin Concent 30.5 L 32.0-36.0 g/dL Red Cell Distribution Width 14.8 11.0-15.5 % Platelet Count 648 H 130-400 K/uL Mean Platelet Volume 9.3 7.5-10.5 fL Nucleated Red Blood Cells 0.0 0.0-0.19 % Red Blood Cell Morphology See comments Sodium Level 136 136-145 mmol/L Potassium Level 3.8 3.5-5.1 mmol/L Chloride Level 103 101-111 mmol/L Carbon Dioxide Level 25 21-32 mmol/L Blood Urea Nitrogen 44 H 7-18 mg/dL Creatinine 1.6 H 0.5-1.3 mg/dL Glomerular Filtration Rate Calc 53 >90 mL/min Random Glucose 376 H 70-105 mg/dL Total Calcium 8.0 L 8.5-10.1 mg/dL Phosphorus Level 4.1 2.5-4.9 mg/dL Magnesium Level 1.50 L 1.80-2.40 mg/dL Total Bilirubin 0.1 L 0.2-1.0 mg/dL Aspartate Amino Transf (AST/SGOT) 21 10-37 U/L Alanine Aminotransferase (ALT/SGPT) 33 12-78 U/L Alkaline Phosphatase 192 H 50-136 U/L Total Protein 6.8 6.0-8.3 g/dL Albumin 1.3 L 3.5-5.0 g/dL C-Reactive Protein, Quantitative 43.40 H 0.5-3.0 mg/L Procalcitonin 0.12 0.05-0.5 ng/mL Bedside Glucose Comment Notified Nurse ASSESSMENT: Scrotal wall abscess with cellulitis, status post I&D and debridement of the right scrotal abscess with a wound VAC application on 08/01/2024. Right epididymal orchitis Urinary tract infection with yeast species. Leukocytosis. Acute renal failure. Diabetes mellitus. PLAN: Continue Meropenem. Continue fluconazole. Continue doxycycline. Continue GI prophylaxis. Continue pain management. Continue monitoring glucose levels. We will follow up on the culture results. Recommending for patient to go to LTAC for wound management and IV antibiotic therapy. This case was reviewed and discussed with my supervising physician and the above assessment and plan was formulated and agreed upon. ATTESTATION BY PHYSICIAN I have seen and examined the patient. I reviewed the documentation, medical decision making, and treatment plan as noted by the mid-level provider above. I agree with the findings and plan of care. GRANT SUMMERS MD, [facility] Aug 03, 2024 15:18
--- NOTE | 2024-08-03 19:57 | NUR ---
Discharge Update: Garfield from [facility] spoke to patient's spouse regarding possible referral to [facility]. Spouse with numerous complaints regarding patient's previous admission to the facility. Spouse is the one that makes decisions for patient. States she will wait for final wound culture results before she makes a decision. Kristin Harris and Director updated.
[2024-08-03] MEDS: doCUSate SODIUM 100 MG CAP PO SCH (21:35)
[2024-08-04 00:26] VITALS: BP 128/63; PULSE 75; RESP 19; TEMP 98.1
[2024-08-04 04:21] VITALS: BP 122/72; PULSE 74; RESP 19; TEMP 98
[2024-08-04 05:28] LABS: BASOPHILS # (AUTO) 0.07 K/uL (0.00-0.20); BASOPHILS % (AUTO) 0.6 % (0.0-5.0); EOSINOPHILS # (AUTO) 0.35 K/uL (0.00-0.70); EOSINOPHILS % (AUTO) 2.8 % (0.0-8.0); HEMATOCRIT 28.5 % (42-54); IMMATURE GRANULOCYTE ABSOLUTE 0.16 K/uL (0-1); LYMPHOCYTES # (AUTO) 3.4 K/uL (1.0-4.8); LYMPHOCYTES % (AUTO) 27.3 % (21.0-51.0); MEAN CORPUSCULAR HEMOGLOBIN 24.2 pg (27.0-33.0); MEAN CORPUSCULAR HGB CONC 30.5 g/dL (32.0-36.0); MEAN CORPUSCULAR VOLUME 79.2 fL (79-99); MONOCYTES # (AUTO) 0.8 K/uL (0.1-1.0); MONOCYTES % (AUTO) 6.6 % (3.0-13.0); NEUTROPHILS # (AUTO) 7.6 K/uL (1.8-7.7); NEUTROPHILS % (AUTO) 61.4 % (40.0-77.0); PLATELET COUNT (AUTO) 607 K/uL (130-400); WHITE BLOOD COUNT (AUTO) 12.3 K/uL (4.8-10.8)
[2024-08-04 05:47] LABS: ALBUMIN 1.3 g/dL (3.5-5.0); BILIRUBIN,TOTAL 0.2 mg/dL (0.2-1.0); CREATININE 1.5 mg/dL (0.5-1.3); MAGNESIUM 1.7 mg/dL (1.80-2.40); POTASSIUM 4.2 mmol/L (3.5-5.1); TOTAL PROTEIN, SERUM 6.9 g/dL (6.0-8.3)
[2024-08-04 08:00] VITALS: BP 139/72; PULSE 78; RESP 18; TEMP 98.1; O2SAT 97
--- NOTE | 2024-08-04 08:55 | PN ---
[facility] PROGRESS NOTE Date of Service: Aug 04, 2024 Time of Service: 08:54 SUBJECTIVE: [ ] This is a 49-year-old that was admitted early this morning with chief complaints of testicular cellulitis. Patient is fully awake alert oriented x3 patient has a Thomas catheter secondary to urinary retention were being urology started patient on Flomax. Patient has no history of urinary retention. GEOVANNI on this admission calciner operator following. Patient has a history of nephrotic syndrome we will discontinue vancomycin and Zosyn. 07/28/24 patient is seen patient has been having temperature T-max 100.9 and leukocytosis being followed by infectious disease. Patient is fully awake alert oriented x3 07/29/24 patient appears to be doing better however continues with low-grade temp ID following for antibiotics stewardship. Leukocytosis trending down slowly. Right testicle erythema and swollen , tender to palpate. continue with indwelling catheter tender to. RN reached out to Urology pending consult. 07/30/24 we repeat ultrasound testicular pending results. Leukocytosis is persistent however is afebrile and on empiric antibiotics. The patient offers no new complaints. 07/31/2024 patient is lying in bed patient was encouraged to get out of bed to chair as tolerated. Primary nurse reports scrotal abscess is now draining and cultures were collected. Patient continues with leukocytosis ID following on empiric antibiotics. Urology recommending Merrem we will see what ID if patient is a candidate for Merrem. No fevers last night tolerating antibiotics reports no diarrhea. 08/01/24 patient seen and examined. Waiting for wound cultures. Urology plan to do I and D and debridement of the right scrotal abscess with possible wound VAC. Case management for discharge planning. 08/02/34 was seen earlier, patient is fully awake alert oriented x3. Postop day one tolerating wound VAC. We had a long discussion with patient in regards he might need to return back to LTAC. There are multiple concerns with patient and significant other to return back to facility. Otherwise patient has been afebrile leukocytosis trending down. All questions were addressed we will discuss case with case management. 08/03/24 patient is seen patient recuperating well postop day two tolerating wound VAC. Denied chest pain or shortness for breath. Waiting for intraoperative cultures. Sugars are elevated we will start premeal insulin continue with long- acting. 08/04/2024 patient is seen patient is tolerating wound VAC. Waiting for c clifford. No fevers no chills overnight REVIEW OF SYSTEMS CONSTITUTIONAL: Denies fevers, chills, or night sweats. No unintentional weight loss reported. NEUROLOGICAL: Denies headache, amaurosis fugax, motor weakness, sensory deficit, vertigo/spinning sensation, gait abnormalities, or tremors. 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 CARDIOVASCULAR: Denies any exertional angina, dyspnea on exertion, orthopnea, paroxysmal nocturnal dyspnea, palpitations, life-threatening arrhythmias, claudication. PULMONARY: Denies any shortness of breath, cough, phlegm/sputum, hemoptysis, pleuritic chest pain. SLEEP: Denies morning headaches, daytime somnolence or napping. Denies difficulty falling asleep, staying asleep, waking from sleep. Denies knowledge of snoring. GASTROINTESTINAL: Denies any type of dysphagia to either liquids or solids. Denies nausea, vomiting, pyrosis, early satiety, abdominal pain, diarrhea, constipation, or changes in stool consistency or caliber. Denies coffee-ground emesis, hematemesis, hematochezia, or melanotic stools. GENITOURINARY: Denies frequency, urgency, nocturia, hematuria or incontinence (Storage/Irritative symptoms.) Low urinary stream, straining to void, urinary intermittency or hesitancy, splitting of the voiding stream, terminal dribbling. ENDOCRINOLOGIC: Denies polyuria, polydipsia, polyphagia or heat/cold intolerances. HEMATOLOGIC: Denies thrombophilia/previous clots, or coagulopathy/bleeding disorders. ONCOLOGIC: Denies personal history of malignancy. DERMATOLOGIC: Denies rashes or pruritus. PSYCHIATRIC: Denies any suicidal or homicidal ideation. Denies hallucinations. PHYSICAL EXAM GENERAL APPEARANCE: The patient is awake, alert, and oriented, in no acute cardiopulmonary distress. NEUROLOGICAL: Cranial nerves II-XII grossly intact. Motor is 5/5 in bilateral upper and lower extremities proximal to distal. No sensory deficits. HEENT: Face is symmetric. Pupils are equal and reactive. Extraocular movements are intact. NECK: Supple. No JVD. No thyromegaly. No submental, submandibular, pre- /postauricular, occipital or supraclavicular lymphadenopathy. CHEST: Normal chest expansion. No Telemetry. LUNGS: Absence of any rales, rhonchi or any wheezing. CARDIOVASCULAR: Regular. S1 and S2 normal. No appreciable rubs, murmurs or gallops. ABDOMEN: Soft, nontender, and nondistended. There is no rebound, voluntary guarding, or rigidity. : Deferred. No Thomas. EXTREMITIES: Non-edematous and not cyanotic. No clubbing. Good capillary refill. SKIN: Swollen testicles Vital Signs (last 8hr) Date Time Temp Pulse Resp B/P (MAP) Pulse Ox O2 Delivery O2 Flow Rate FiO2 08/04/24 08:00 98.1 78 18 139/72 97 Room Air 08/04/24 04:21 98.1 74 19 122/72 96 Room Air LABS: Laboratory: Test 08/04/24 05:45 08/04/24 05:12 08/03/24 05:17 Range/Units Whole Blood Glucose 175 H 70-110 MG/DL White Blood Count 12.3 H 4.8-10.8 K/uL Red Blood Count 3.60 L 4.50-6.20 MIL/uL Hemoglobin 8.7 L 14.0-18.0 g/dL Hematocrit 28.5 L 42-54 % Mean Corpuscular Volume 79.2 79-99 fL Mean Corpuscular Hemoglobin 24.2 L 27.0-33.0 pg Mean Corpuscular Hemoglobin Concent 30.5 L 32.0-36.0 g/dL Red Cell Distribution Width 15.0 11.0-15.5 % Platelet Count 607 H 130-400 K/uL Mean Platelet Volume 8.9 7.5-10.5 fL Immature Granulocyte % (Auto) 1.3 H 0-1 % Neutrophils (%) (Auto) 61.4 40.0-77.0 % Lymphocytes (%) (Auto) 27.3 21.0-51.0 % Monocytes (%) (Auto) 6.6 3.0-13.0 % Eosinophils (%) (Auto) 2.8 0.0-8.0 % Basophils (%) (Auto) 0.6 0.0-5.0 % Neutrophils # (Auto) 7.6 1.8-7.7 K/uL Lymphocytes # (Auto) 3.4 1.0-4.8 K/uL Monocytes # (Auto) 0.8 0.1-1.0 K/uL Eosinophils # (Auto) 0.35 0.00-0.70 K/uL Basophils # (Auto) 0.07 0.00-0.20 K/uL Absolute Immature Granulocyte (auto 0.16 0-1 K/uL Nucleated Red Blood Cells 0.0 0.0-0.19 % Sodium Level 135 L 136-145 mmol/L Potassium Level 4.2 3.5-5.1 mmol/L Chloride Level 103 101-111 mmol/L Carbon Dioxide Level 27 21-32 mmol/L Blood Urea Nitrogen 40 H 7-18 mg/dL Creatinine 1.5 H 0.5-1.3 mg/dL Glomerular Filtration Rate Calc 57 >90 mL/min Random Glucose 185 #H 70-105 mg/dL Total Calcium 8.3 L 8.5-10.1 mg/dL Magnesium Level 1.70 L 1.80-2.40 mg/dL Total Bilirubin 0.2 # 0.2-1.0 mg/dL Aspartate Amino Transf (AST/SGOT) 20 10-37 U/L Alanine Aminotransferase (ALT/SGPT) 31 12-78 U/L Alkaline Phosphatase 186 H 50-136 U/L Total Protein 6.9 6.0-8.3 g/dL Albumin 1.3 L 3.5-5.0 g/dL Red Blood Cell Morphology See comments Phosphorus Level 4.1 2.5-4.9 mg/dL Current Medications Medications (Trade) Dose Ordered Sig/Gaby Route PRN Reason Start Time Stop Time Status Last Admin Dose Admin Acetaminophen (TYLenol 325MG TAB) 650 mg Q4H PRN PO MILD PAIN (1-3) 07/27/24 02:30 08/26/24 02:29 Acetaminophen (TYLenol 325MG TAB) 650 mg Q6H PRN PO TEMPERATURE GREATER THAN 101.5 07/27/24 02:30 08/26/24 02:29 07/29/24 17:35 650 MG Acetaminophen/ Hydrocodone Bitart (NORco 5/325MG) 1 tab Q6H PRN PO MODERATE PAIN (4-6) 07/27/24 02:30 08/01/24 02:29 DC 07/30/24 15:08 1 TAB Aspirin (Aspirin 81mg Chew Tab) 81 mg AM PO 07/30/24 09:00 08/29/24 08:59 08/03/24 10:08 81 MG Atorvastatin Calcium (LIPItor 40MG) 40 mg HS PO 07/29/24 21:00 08/28/24 20:59 08/03/24 21:36 40 MG Ceftriaxone Sodium (ROCEphine 1G INJ) 1 gm Q24H IVPB 07/27/24 14:30 07/29/24 21:33 DC 07/28/24 14:22 1 GM Ceftriaxone Sodium (ROCEphine 1G INJ) 1 gm Q24H IVPB 07/29/24 22:00 08/01/24 15:41 DC 07/31/24 22:31 1 GM Clotrimazole (Lotrimin) 1 APPL TP BID BID TP 07/29/24 21:00 08/28/24 20:59 08/03/24 21:42 1 GM Dextrose (D50w) 50 ml AD PRN IV HYPOGLYCEMIA PROTOCOL 07/27/24 04:00 08/26/24 03:59 Docusate Sodium (COLace 100MG CAP) 100 mg BID PO 08/03/24 21:00 09/02/24 20:59 08/03/24 21:35 100 MG Doxycycline Hyclate 250 ml @ 125 mls/hr Q12H IV 07/27/24 16:00 07/29/24 21:35 DC 07/29/24 03:37 125 MLS/HR Doxycycline Hyclate 250 ml @ 125 mls/hr Q12H IV 07/29/24 23:59 08/01/24 22:57 DC 08/01/24 15:54 125 MLS/HR Doxycycline Hyclate 250 ml @ 125 mls/hr Q12H IV 08/02/24 04:00 08/12/24 03:59 08/04/24 02:36 125 MLS/HR Famotidine (Pepcid 20mg Tab) 20 mg Q48H PO 07/27/24 02:30 08/26/24 02:29 08/04/24 02:36 20 MG Ferrous Sulfate (Ferrous Sulfate) 325 mg DAILY PO 07/30/24 09:00 08/29/24 08:59 08/03/24 10:08 325 MG Fluconazole (DiFLUCan 100 mg TAB) 100 mg DAILY PO 08/02/24 11:00 09/01/24 10:59 08/03/24 10:08 100 MG Gabapentin (NEURontin 100 mg CAP) 100 mg BID PO 07/29/24 21:00 08/28/24 20:59 08/03/24 21:35 100 MG Glucagon (Glucagon 1mg Kit) 1 mg AD PRN IM HYPOGLYCEMIA PROTOCOL 07/27/24 04:00 08/26/24 03:59 Home Med (Home Medication) DAPAGLIFLOZIN 5MG TAB DAILY PO 07/30/24 09:00 08/29/24 08:59 08/02/24 08:11 1 EACH Hydromorphone HCl (DiLAUDid 0.5MG INJ) 0.5 mg Q3H PRN IVP SEVERE PAIN (7-10) 08/01/24 19:30 08/06/24 19:29 08/04/24 02:49 0.5 MG Hydromorphone HCl (DiLAUDid 0.5MG INJ) 0.5 mg Q3H3 PRN IVP SEVERE PAIN (7-10) 07/27/24 13:30 08/01/24 13:29 DC 07/31/24 05:57 0.5 MG Hydromorphone HCl (DiLAUDid 1MG INJ) 1 mg ONCE STAT IVP 08/03/24 12:49 08/03/24 13:11 DC 08/03/24 13:21 1 MG Insulin Glargine (LANtus 100 UNITS/ML 10 ML VIAL) 12 units HS SQ 07/30/24 21:00 08/29/24 20:59 08/03/24 21:39 12 UNITS Insulin Human Regular (humuLIN R 100 UNIT/ML 3ML) 5 unit TIDAC SQ 08/03/24 11:30 09/02/24 11:29 08/04/24 06:20 5 UNIT Insulin Human Regular (humuLIN R 100 UNIT/ML 3ML) INSULIN SLIDING SCAL... ACHS SQ 07/27/24 07:30 08/26/24 07:29 08/03/24 21:37 5 UNIT Lactulose (Constulose 20gm/ 30ml Udcup) 20 gm BID PRN PO CONSTIPATION 07/30/24 08:30 08/29/24 08:29 07/30/24 09:00 20 GM Magnesium Sulfate 50 ml @ 0 mls/hr PROTOCOL IV 07/27/24 10:00 07/27/24 13:42 DC Magnesium Sulfate 50 ml @ 0 mls/hr PROTOCOL IV 07/27/24 14:00 07/30/24 08:49 DC 07/30/24 06:27 25 MLS/HR Magnesium Sulfate 50 ml @ 0 mls/hr PROTOCOL IV 07/30/24 09:00 08/29/24 08:59 08/03/24 10:15 25 MLS/HR Magnesium Sulfate 50 ml @ 0 mls/hr PROTOCOL IV 08/03/24 09:30 08/03/24 09:18 DC Magnesium Sulfate 50 ml @ 0 mls/hr PROTOCOL PRN IV OTHER [SEE ORDER COMMENTS] 07/27/24 04:00 07/27/24 13:42 DC 07/27/24 07:59 12.5 MLS/HR Meropenem (Merrem 1gm) 1 gm Q12H IVPB 07/31/24 15:30 08/10/24 15:29 08/04/24 02:36 1 GM Ondansetron HCl (zoFRAN 4MG INJ) 4 mg Q6H PRN IV NAUSEA/VOMITING 07/27/24 02:30 08/26/24 02:29 Piperacillin Sod/ Tazobactam Sod 50 ml @ 12.5 mls/hr Q8H IV 07/27/24 05:00 07/27/24 14:15 DC 07/27/24 12:14 12.5 MLS/HR Potassium Chloride 100 ml @ 100 mls/hr AD PRN IV POTASSIUM PROTOCOL 07/27/24 04:00 08/26/24 03:59 Potassium Chloride (K-Dur 10meq Sr Tab) 10 meq AD PRN PO POTASSIUM PROTOCOL 07/30/24 06:30 08/26/24 03:59 08/03/24 13:46 10 MEQ Potassium Chloride (K-Dur/Klor-Con 20meq) 10 meq AD PRN PO POTASSIUM PROTOCOL 07/27/24 04:00 07/30/24 06:22 DC 07/29/24 08:07 10 MEQ Potassium Chloride (KCl 10% Elixir 20meq/15ml) 10 meq AD PRN PO POTASSIUM PROTOCOL 07/27/24 04:00 08/26/24 03:59 Sodium Bicarbonate (Sodium Bicarbonate) 650 mg TID PRN PO INDIGESTION 07/27/24 12:00 08/26/24 11:59 Sodium Chloride 1,000 ml @ 0 mls/hr Q0M IV 08/01/24 12:00 08/31/24 11:59 Sodium Chloride 1,000 ml @ 100 mls/hr Q10H IV 07/27/24 03:30 07/30/24 15:05 DC 07/30/24 12:31 100 MLS/HR Tamsulosin HCl (FloMAX) 0.4 mg DAILY PO 07/28/24 09:00 08/27/24 08:59 08/03/24 10:08 0.4 MG Vancomycin HCl 250 ml @ 125 mls/hr ONCE IV 07/27/24 02:30 07/27/24 02:32 DC Vancomycin HCl 250 ml @ 125 mls/hr Q24H IV 07/28/24 01:00 07/27/24 14:15 DC Vancomycin HCl (Vancomycin Protocol) 1 each AD IV 07/27/24 00:00 07/27/24 14:21 DC Vitamin B Complex/ Vit C/Folic Acid (Nephrovite Tablet) 1 cap DAILY PO 07/28/24 09:00 08/27/24 08:59 08/03/24 10:08 1 CAP DIAGNOSTICS / RADIOLOGY: [ ] ASSESSMENT: Suspecting sepsis secondary right scrotal abscess, POA Epididymal orchitis, left side with abscess, POA 08/01/24 s/p I/D Right ischiorectal/perineal abscess tracking to the right hemiscrotum, 16 x 12 x 10 cm. with Wound vac Right testicular cellulitis POA Urinary retention requiring Thomas catheter POA Acute kidney injury with CKD POA improving Hypertension POA Acute leukocytosis POA improving Microcytic hypochromic anemia iron deficiency POA Acute thrombocytosis POA Uncontrolled diabetes POA Hyperlipidemia POA Morbid Obesity POA Coronary artery disease POA Severe Protein calorie Malnutrition PAD with hx of AKA to the left side Obesity Hypoventilation Syndrome Metabolic acidosis improving electrolytes derangement: hypomagnesemia History Nephrotic syndrome functional decline POA Hallucination not present POA Uncontrolled type II diabetes with hyperglycemia PLAN: Admit: Medical floor condition: Guarded Status: Full IVF: heplock Consultants calciner operator's, Infectious Disease, Urology and psychiatry Antibiotics: Antibiotics changed to Merrem been1 g every12 hours leukocytosis improving. Procedure I and D of scrotal mass with wound VAC postop day 3 Intraoperative Wound cultures scrotal drainage was sent for cultures we will follow-up Continue with local wound care wound VAC. We will be changed on Tuesday Labs cbc, cmp, mag+ Inflammatory markers every other day Continue a.c. HS with sliding scale started premeal5 units of regular and currently on long- units Lantus b.i.d. Avoid NSAIDs strict I&O we will monitor renal function we will follow calciner operator's recommendations Thomas care Replace electrolytes as needed as per protocol to keep potassium above 4.0 magnesium 2.0. We will monitor H&H trend to keep hemoglobin above 7.0 vitamin B complex vitamin C folic acid one tablet daily. Bicarb po t.i.d. bowel regiment: lactulose 20 gm PO BID PRN constipation Pain management: Gabapentin 100 t.i.d.. [place] 5/325 p.o. as needed for pain. Supportive measures: DVT ppx, GI ppx PT services out of bed to chair Supervising MD: Dr. Kahn c/d case mangagement: SNF versus LTAC for wound vac management and IV antibiotics This document was generated in part using voice recognition software, occasional wrong word or sound alike substitutions may have occurred due to the inherent limitations of voice recognition software. Read the chart carefully and recognize using context, where the substitutions have occurred. Although every effort was made to edit the content, auto hauler and typing errors may occur ATTESTATION BY PHYSICIAN I have seen and examined the patient. I reviewed the documentation, medical decision making, and treatment plan as noted by the mid-level provider above. I agree with the findings and plan of care. Olaf Kahn MD, ELIZABETH NP Aug 04, 2024 08:55
--- NOTE | 2024-08-04 11:57 | PN ---
FOLLOWUP PROGRESS NOTE SUBJECTIVE: A 49-year-old male who has had a prolonged hospital course. The patient with a history of diabetes mellitus and hypertension, has a history of known chronic renal insufficiency. The patient has vascular disease, status post lower extremity amputation, initially presented to the hospital and found to have testicular cellulitis. The patient continues with broad spectrum IV antibiotics as well as local wound care. He is status post I and D of the wound by Urology. He is being seen as a followup visit for all of the above. REVIEW OF SYSTEMS: GENERAL: He is feeling improved since admission. HEENT: No change in vision. No change in hearing. CARDIOVASCULAR: There is no current chest pain or palpitations. PULMONARY: No shortness of breath. GASTROINTESTINAL: The patient is tolerating diet. MUSCULOSKELETAL: Complains of weakness. PHYSICAL EXAMINATION:. VITAL SIGNS: Blood pressure ____, pulse in the 70s. GENERAL: Chronically ill male, older than appearing, atraumatic. Pupils equal, roving to light. Oropharynx is without exudate. Nares clear. NECK: There is no JVP. There is no thyromegaly, no mass. CARDIOVASCULAR: Regular. There is no S3, S4 gallop. LUNGS: Coarse with equal thoracic movement. ABDOMEN: Soft, nondistended, nontender. EXTREMITIES: No clubbing, no cyanosis. NEUROLOGIC: He is awake. He is alert. LABORATORY DATA: Hemoglobin 8.7, hematocrit 28, white count is 12,000. Sodium 135, BUN 40, creatinine 1.5. IMPRESSION: * Acute on chronic renal failure. * Testicular cellulitis. * Diabetes mellitus. * Hypertension. PLAN: The patient remains on the broad spectrum IV antibiotics as well as local wound care. The patient is being seen by case management in regards to placement to SNF. The patient does have history of renal dysfunction. Creatinine remains elevated. There is no need for any form of renal replacement therapy at this time. Once the patient is discharged, the patient will follow up in the [facility]. TID: [id number] RECEIPT: [id number]
[2024-08-04 12:00] VITALS: BP 126/73; PULSE 78; RESP 19; TEMP 98.3
--- NOTE | 2024-08-04 12:40 | PN ---
INFECTIOUS DISEASE PROGRESS NOTE Date of Service: Aug 04, 2024 SUBJECTIVE: This is a 49-year-old male patient presented to the hospital with chief complaint of right testicle pain. A scrotal ultrasound done on admission showed mild right epididymal orchitis. Patient was seen and examined at bedside in room 317. Patient is awake, alert and oriented x3. Patient is status post I&D and debridement of the right scrotal abscess with a wound VAC application on 08/01/2024. Slight increase on the WBC to 12.3 today from 11.8 yesterday. Culture results from the scrotal drainage is growing Irina albicans and patient is currently on fluconazole, Meropenem and doxycycline. ID [facility] for IV antibiotics and wound management. We will continue to monitor patient's care. PHYSICAL EXAM EYES: Anicteric. Pupils equal and reactive. Right eye blindness. HENT: No oral thrush seen, moist Oral mucosa. NECK: Supple, no JVD or thyromegaly. LUNGS: Good air entry. No rales, no rhonchi. CARDIOVASCULAR: S1, S2 regular. No murmur heard. ABDOMEN: Soft, non tender, bowel sounds present, no organomegaly. CENTRAL NERVOUS SYSTEM: Awake, alert, oriented x 3. SKIN: No rashes, no swelling. LYMPHATICS: No peripheral lymphadenopathy. MUSCULOSKELETAL: No joint swelling, erythema or tenderness. EXTREMITIES: No cyanosis or clubbing. 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 BACK: No deformity, no pressure ulcer. GENITOURINARY: No dysuria or hematuria. Thomas catheter. SCROTUM: Right Scrotal abscess, status post I&D with wound VAC placement. Vital Sign (Last 12 Hours) 08/04/24 08/04/24 04:21 08:00 Temp 98.1 98.1 Pulse 74 78 Resp 19 18 B/P (MAP) 122/72 139/72 Pulse Ox 96 97 O2 Delivery Room Air Room Air Intake & Output (last 24hrs) 08/03/24 08/03/24 08/04/24 15:00 23:00 07:00 Intake Total 4800 ml Output Total 1900 ml 1400 ml Balance -1900 ml 4800 ml -1400 ml LABS: Laboratory: Test 08/04/24 11:52 08/04/24 05:12 08/03/24 05:17 Range/Units Whole Blood Glucose 219 H 70-110 MG/DL White Blood Count 12.3 H 4.8-10.8 K/uL Red Blood Count 3.60 L 4.50-6.20 MIL/uL Hemoglobin 8.7 L 14.0-18.0 g/dL Hematocrit 28.5 L 42-54 % Mean Corpuscular Volume 79.2 79-99 fL Mean Corpuscular Hemoglobin 24.2 L 27.0-33.0 pg Mean Corpuscular Hemoglobin Concent 30.5 L 32.0-36.0 g/dL Red Cell Distribution Width 15.0 11.0-15.5 % Platelet Count 607 H 130-400 K/uL Mean Platelet Volume 8.9 7.5-10.5 fL Immature Granulocyte % (Auto) 1.3 H 0-1 % Neutrophils (%) (Auto) 61.4 40.0-77.0 % Lymphocytes (%) (Auto) 27.3 21.0-51.0 % Monocytes (%) (Auto) 6.6 3.0-13.0 % Eosinophils (%) (Auto) 2.8 0.0-8.0 % Basophils (%) (Auto) 0.6 0.0-5.0 % Neutrophils # (Auto) 7.6 1.8-7.7 K/uL Lymphocytes # (Auto) 3.4 1.0-4.8 K/uL Monocytes # (Auto) 0.8 0.1-1.0 K/uL Eosinophils # (Auto) 0.35 0.00-0.70 K/uL Basophils # (Auto) 0.07 0.00-0.20 K/uL Absolute Immature Granulocyte (auto 0.16 0-1 K/uL Nucleated Red Blood Cells 0.0 0.0-0.19 % Sodium Level 135 L 136-145 mmol/L Potassium Level 4.2 3.5-5.1 mmol/L Chloride Level 103 101-111 mmol/L Carbon Dioxide Level 27 21-32 mmol/L Blood Urea Nitrogen 40 H 7-18 mg/dL Creatinine 1.5 H 0.5-1.3 mg/dL Glomerular Filtration Rate Calc 57 >90 mL/min Random Glucose 185 #H 70-105 mg/dL Total Calcium 8.3 L 8.5-10.1 mg/dL Magnesium Level 1.70 L 1.80-2.40 mg/dL Total Bilirubin 0.2 # 0.2-1.0 mg/dL Aspartate Amino Transf (AST/SGOT) 20 10-37 U/L Alanine Aminotransferase (ALT/SGPT) 31 12-78 U/L Alkaline Phosphatase 186 H 50-136 U/L Total Protein 6.9 6.0-8.3 g/dL Albumin 1.3 L 3.5-5.0 g/dL Red Blood Cell Morphology See comments Phosphorus Level 4.1 2.5-4.9 mg/dL ASSESSMENT: Scrotal wall abscess Irina albicans infection, s/p I&D and debridement of the right scrotal abscess with a wound VAC application on 08/01/2024. Scrotal cellulitis. Right epididymal orchitis Urinary tract infection with yeast species. Leukocytosis. Acute renal failure. Diabetes mellitus. PLAN: Continue Meropenem. Continue fluconazole. Continue doxycycline. Continue GI prophylaxis. Continue pain management. Continue monitoring glucose levels. We will follow up on the culture results. Recommending for patient to go to LTAC for wound management and IV antibiotic therapy. This case was reviewed and discussed with my supervising physician and the above assessment and plan was formulated and agreed upon. ATTESTATION BY PHYSICIAN I have seen and examined the patient. I reviewed the documentation, medical decision making, and treatment plan as noted by the mid-level provider above. I agree with the findings and plan of care. GRANT SUMMERS MD, [facility] Aug 04, 2024 12:40
[2024-08-04] MEDS: fluCONazole 200 MG/NS 100 ML 100 ML IV SCH (13:59)
[2024-08-04 16:00] VITALS: BP 121/58; PULSE 72; RESP 18; TEMP 98.6
[2024-08-04 20:00] VITALS: BP 157/82; PULSE 74; RESP 17; TEMP 98.7; O2SAT 96
--- NOTE | 2024-08-04 23:20 | NUR ---
Report given to MIHAELA Torres.
[2024-08-05] VITALS (7 sets, daily range): BP systolic 131–152; BP diastolic 71–90; PULSE 68–78; RESP 16–19; TEMP 97.8–99.1; O2SAT 94–97
[2024-08-05 03:02] LABS: BASOPHILS # (AUTO) 0.06 K/uL (0.00-0.20); BASOPHILS % (AUTO) 0.5 % (0.0-5.0); EOSINOPHILS % (AUTO) 2.4 % (0.0-8.0); HEMATOCRIT 28.6 % (42-54); IMMATURE GRANULOCYTE ABSOLUTE 0.11 K/uL (0-1); LYMPHOCYTES # (AUTO) 3.7 K/uL (1.0-4.8); LYMPHOCYTES % (AUTO) 29.2 % (21.0-51.0); MEAN CORPUSCULAR HEMOGLOBIN 24.1 pg (27.0-33.0); MEAN CORPUSCULAR HGB CONC 30.8 g/dL (32.0-36.0); MEAN CORPUSCULAR VOLUME 78.4 fL (79-99); MONOCYTES # (AUTO) 0.7 K/uL (0.1-1.0); MONOCYTES % (AUTO) 5.6 % (3.0-13.0); NEUTROPHILS # (AUTO) 7.7 K/uL (1.8-7.7); NEUTROPHILS % (AUTO) 61.4 % (40.0-77.0); PLATELET COUNT (AUTO) 629 K/uL (130-400); RED BLOOD CELL COUNT(AUTO) 3.65 MIL/uL (4.50-6.20); RED CELL DISTRIBUTION WIDTH 15.3 % (11.0-15.5); WHITE BLOOD COUNT (AUTO) 12.5 K/uL (4.8-10.8)
[2024-08-05 03:17] LABS: ALBUMIN 1.4 g/dL (3.5-5.0); BILIRUBIN,TOTAL 0.2 mg/dL (0.2-1.0); CREATININE 1.2 mg/dL (0.5-1.3); MAGNESIUM 1.9 mg/dL (1.80-2.40); POTASSIUM 4.2 mmol/L (3.5-5.1); TOTAL PROTEIN, SERUM 6.8 g/dL (6.0-8.3)
--- NOTE | 2024-08-05 09:45 | PN ---
[facility] PROGRESS NOTE Date of Service: Aug 05, 2024 Time of Service: 09:44 SUBJECTIVE: [ ] This is a 49-year-old that was admitted early this morning with chief complaints of testicular cellulitis. Patient is fully awake alert oriented x3 patient has a Thomas catheter secondary to urinary retention were being urology started patient on Flomax. Patient has no history of urinary retention. GEOVANNI on this admission senior compliance officer following. Patient has a history of nephrotic syndrome we will discontinue vancomycin and Zosyn. 07/28/24 patient is seen patient has been having temperature T-max 100.9 and leukocytosis being followed by infectious disease. Patient is fully awake alert oriented x3 07/29/24 patient appears to be doing better however continues with low-grade temp ID following for antibiotics stewardship. Leukocytosis trending down slowly. Right testicle erythema and swollen , tender to palpate. continue with indwelling catheter tender to. RN reached out to Urology pending consult. 07/30/24 we repeat ultrasound testicular pending results. Leukocytosis is persistent however is afebrile and on empiric antibiotics. The patient offers no new complaints. 07/31/2024 patient is lying in bed patient was encouraged to get out of bed to chair as tolerated. Primary nurse reports scrotal abscess is now draining and cultures were collected. Patient continues with leukocytosis ID following on empiric antibiotics. Urology recommending Merrem we will see what ID if patient is a candidate for Merrem. No fevers last night tolerating antibiotics reports no diarrhea. 08/01/24 patient seen and examined. Waiting for wound cultures. Urology plan to do I and D and debridement of the right scrotal abscess with possible wound VAC. Case management for discharge planning. 08/02/34 was seen earlier, patient is fully awake alert oriented x3. Postop day one tolerating wound VAC. We had a long discussion with patient in regards he might need to return back to LTAC. There are multiple concerns with patient and significant other to return back to facility. Otherwise patient has been afebrile leukocytosis trending down. All questions were addressed we will discuss case with case management. 08/03/24 patient is seen patient recuperating well postop day two tolerating wound VAC. Denied chest pain or shortness for breath. Waiting for intraoperative cultures. Sugars are elevated we will start premeal insulin continue with long- acting. 08/04/2024 patient is seen patient is tolerating wound VAC. Waiting for c ultures. No fevers no chills overnight 08/05/24 patient is lying in bed patient appears in no acute distress. Patient tolerating wound VAC. All cultures are final waiting for ID final recommendations he is recommending patient will need LTAC for wound care management for further debridement per sustainability specialist in wound VAC management. Patient continues on antibiotics. REVIEW OF SYSTEMS CONSTITUTIONAL: Denies fevers, chills, or night sweats. No unintentional weight loss reported. NEUROLOGICAL: Denies headache, amaurosis fugax, motor weakness, sensory defici t, vertigo/spinning sensation, gait abnormalities, or tremors. 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 CARDIOVASCULAR: Denies any exertional angina, dyspnea on exertion, orthopnea, paroxysmal nocturnal dyspnea, palpitations, life-threatening arrhythmias, claudication. PULMONARY: Denies any shortness of breath, cough, phlegm/sputum, hemoptysis, pleuritic chest pain. SLEEP: Denies morning headaches, daytime somnolence or napping. Denies difficulty falling asleep, staying asleep, waking from sleep. Denies knowledge of snoring. GASTROINTESTINAL: Denies any type of dysphagia to either liquids or solids. Denies nausea, vomiting, pyrosis, early satiety, abdominal pain, diarrhea, constipation, or changes in stool consistency or caliber. Denies coffee-ground emesis, hematemesis, hematochezia, or melanotic stools. GENITOURINARY: Denies frequency, urgency, nocturia, hematuria or incontinence (Storage/Irritative symptoms.) Low urinary stream, straining to void, urinary intermittency or hesitancy, splitting of the voiding stream, terminal dribbling. ENDOCRINOLOGIC: Denies polyuria, polydipsia, polyphagia or heat/cold intolerances. HEMATOLOGIC: Denies thrombophilia/previous clots, or coagulopathy/bleeding disorders. ONCOLOGIC: Denies personal history of malignancy. DERMATOLOGIC: Denies rashes or pruritus. PSYCHIATRIC: Denies any suicidal or homicidal ideation. Denies hallucinations. PHYSICAL EXAM GENERAL APPEARANCE: The patient is awake, alert, and oriented, in no acute cardiopulmonary distress. NEUROLOGICAL: Cranial nerves II-XII grossly intact. Motor is 5/5 in bilateral upper and lower extremities proximal to distal. No sensory deficits. HEENT: Face is symmetric. Pupils are equal and reactive. Extraocular movements are intact. NECK: Supple. No JVD. No thyromegaly. No submental, submandibular, pre-/postauricular, occipital or supraclavicular lymphadenopathy. CHEST: Normal chest expansion. No Telemetry. LUNGS: Absence of any rales, rhonchi or any wheezing. CARDIOVASCULAR: Regular. S1 and S2 normal. No appreciable rubs, murmurs or gallops. ABDOMEN: Soft, nontender, and nondistended. There is no rebound, voluntary guarding, or rigidity. : Deferred. No Thomas. EXTREMITIES: Non-edematous and not cyanotic. No clubbing. Good capillary refill. SKIN: Swollen testicles Vital Signs (last 8hr) Date Time Temp Pulse Resp B/P (MAP) Pulse Ox O2 Delivery O2 Flow Rate FiO2 08/05/24 08:00 98.6 68 18 131/72 97 Room Air 08/05/24 04:00 98.8 69 19 152/78 98 Room Air 21 LABS: Laboratory: Test 08/05/24 05:11 08/05/24 02:52 Range/Units Whole Blood Glucose 176 H 70-110 MG/DL White Blood Count 12.5 H 4.8-10.8 K/uL Red Blood Count 3.65 L 4.50-6.20 MIL/uL Hemoglobin 8.8 L 14.0-18.0 g/dL Hematocrit 28.6 L 42-54 % Mean Corpuscular Volume 78.4 L 79-99 fL Mean Corpuscular Hemoglobin 24.1 L 27.0-33.0 pg Mean Corpuscular Hemoglobin Concent 30.8 L 32.0-36.0 g/dL Red Cell Distribution Width 15.3 11.0-15.5 % Platelet Count 629 H 130-400 K/uL Mean Platelet Volume 9.1 7.5-10.5 fL Immature Granulocyte % (Auto) 0.9 0-1 % Neutrophils (%) (Auto) 61.4 40.0-77.0 % Lymphocytes (%) (Auto) 29.2 21.0-51.0 % Monocytes (%) (Auto) 5.6 3.0-13.0 % Eosinophils (%) (Auto) 2.4 0.0-8.0 % Basophils (%) (Auto) 0.5 0.0-5.0 % Neutrophils # (Auto) 7.7 1.8-7.7 K/uL Lymphocytes # (Auto) 3.7 1.0-4.8 K/uL Monocytes # (Auto) 0.7 0.1-1.0 K/uL Eosinophils # (Auto) 0.30 0.00-0.70 K/uL Basophils # (Auto) 0.06 0.00-0.20 K/uL Absolute Immature Granulocyte (auto 0.11 0-1 K/uL Nucleated Red Blood Cells 0.0 0.0-0.19 % Sodium Level 134 L 136-145 mmol/L Potassium Level 4.2 3.5-5.1 mmol/L Chloride Level 103 101-111 mmol/L Carbon Dioxide Level 29 21-32 mmol/L Blood Urea Nitrogen 35 H 7-18 mg/dL Creatinine 1.2 0.5-1.3 mg/dL Glomerular Filtration Rate Calc 75 >90 mL/min Random Glucose 202 H 70-105 mg/dL Total Calcium 8.4 L 8.5-10.1 mg/dL Magnesium Level 1.90 1.80-2.40 mg/dL Total Bilirubin 0.2 0.2-1.0 mg/dL Aspartate Amino Transf (AST/SGOT) 22 10-37 U/L Alanine Aminotransferase (ALT/SGPT) 28 12-78 U/L Alkaline Phosphatase 186 H 50-136 U/L Total Protein 6.8 6.0-8.3 g/dL Albumin 1.4 L 3.5-5.0 g/dL Current Medications Medications (Trade) Dose Ordered Sig/Gaby Route PRN Reason Start Time Stop Time Status Last Admin Dose Admin Acetaminophen (TYLenol 325MG TAB) 650 mg Q4H PRN PO MILD PAIN (1-3) 07/27/24 02:30 08/26/24 02:29 Acetaminophen (TYLenol 325MG TAB) 650 mg Q6H PRN PO TEMPERATURE GREATER THAN 101.5 07/27/24 02:30 08/26/24 02:29 07/29/24 17:35 650 MG Acetaminophen/ Hydrocodone Bitart (NORco 5/325MG) 1 tab Q6H PRN PO MODERATE PAIN (4-6) 07/27/24 02:30 08/01/24 02:29 DC 07/30/24 15:08 1 TAB Aspirin (Aspirin 81mg Chew Tab) 81 mg AM PO 07/30/24 09:00 08/29/24 08:59 08/05/24 08:53 81 MG Atorvastatin Calcium (LIPItor 40MG) 40 mg HS PO 07/29/24 21:00 08/28/24 20:59 08/04/24 20:36 40 MG Ceftriaxone Sodium (ROCEphine 1G INJ) 1 gm Q24H IVPB 07/27/24 14:30 07/29/24 21:33 DC 07/28/24 14:22 1 GM Ceftriaxone Sodium (ROCEphine 1G INJ) 1 gm Q24H IVPB 07/29/24 22:00 08/01/24 15:41 DC 07/31/24 22:31 1 GM Clotrimazole (Lotrimin) 1 APPL TP BID BID TP 07/29/24 21:00 08/28/24 20:59 08/04/24 20:37 1 GM Dextrose (D50w) 50 ml AD PRN IV HYPOGLYCEMIA PROTOCOL 07/27/24 04:00 08/26/24 03:59 Docusate Sodium (COLace 100MG CAP) 100 mg BID PO 08/03/24 21:00 09/02/24 20:59 08/05/24 08:53 100 MG Doxycycline Hyclate 250 ml @ 125 mls/hr Q12H IV 07/27/24 16:00 07/29/24 21:35 DC 07/29/24 03:37 125 MLS/HR Doxycycline Hyclate 250 ml @ 125 mls/hr Q12H IV 07/29/24 23:59 08/01/24 22:57 DC 08/01/24 15:54 125 MLS/HR Doxycycline Hyclate 250 ml @ 125 mls/hr Q12H IV 08/02/24 04:00 08/12/24 03:59 08/05/24 02:37 125 MLS/HR Famotidine (Pepcid 20mg Tab) 20 mg Q48H PO 07/27/24 02:30 08/26/24 02:29 08/04/24 02:36 20 MG Ferrous Sulfate (Ferrous Sulfate) 325 mg DAILY PO 07/30/24 09:00 08/29/24 08:59 08/05/24 08:53 325 MG Fluconazole (DiFLUCan 100 mg TAB) 100 mg DAILY PO 08/02/24 11:00 08/04/24 12:53 DC 08/04/24 09:22 100 MG Fluconazole/ Sodium Chloride 100 ml @ 100 mls/hr Q24H IV 08/04/24 13:00 09/03/24 12:59 08/04/24 13:59 100 MLS/HR Gabapentin (NEURontin 100 mg CAP) 100 mg BID PO 07/29/24 21:00 08/28/24 20:59 08/05/24 08:53 100 MG Glucagon (Glucagon 1mg Kit) 1 mg AD PRN IM HYPOGLYCEMIA PROTOCOL 07/27/24 04:00 08/26/24 03:59 Home Med (Home Medication) DAPAGLIFLOZIN 5MG TAB DAILY PO 07/30/24 09:00 08/29/24 08:59 08/04/24 09:37 1 EACH Hydromorphone HCl (DiLAUDid 0.5MG INJ) 0.5 mg Q3H PRN IVP SEVERE PAIN (7-10) 08/01/24 19:30 08/06/24 19:29 08/05/24 02:22 0.5 MG Hydromorphone HCl (DiLAUDid 0.5MG INJ) 0.5 mg Q3H3 PRN IVP SEVERE PAIN (7-10) 07/27/24 13:30 08/01/24 13:29 DC 07/31/24 05:57 0.5 MG Hydromorphone HCl (DiLAUDid 1MG INJ) 1 mg ONCE STAT IVP 08/03/24 12:49 08/03/24 13:11 DC 08/03/24 13:21 1 MG Insulin Glargine (LANtus 100 UNITS/ML 10 ML VIAL) 12 units HS SQ 07/30/24 21:00 08/29/24 20:59 08/04/24 20:34 12 UNITS Insulin Human Regular (humuLIN R 100 UNIT/ML 3ML) 5 unit TIDAC SQ 08/03/24 11:30 09/02/24 11:29 08/05/24 06:13 5 UNIT Insulin Human Regular (humuLIN R 100 UNIT/ML 3ML) INSULIN SLIDING SCAL... ACHS SQ 07/27/24 07:30 08/26/24 07:29 08/04/24 20:34 2 UNIT Lactulose (Constulose 20gm/ 30ml Udcup) 20 gm BID PRN PO CONSTIPATION 07/30/24 08:30 08/29/24 08:29 07/30/24 09:00 20 GM Magnesium Sulfate 50 ml @ 0 mls/hr PROTOCOL IV 07/27/24 10:00 07/27/24 13:42 DC Magnesium Sulfate 50 ml @ 0 mls/hr PROTOCOL IV 07/27/24 14:00 07/30/24 08:49 DC 07/30/24 06:27 25 MLS/HR Magnesium Sulfate 50 ml @ 0 mls/hr PROTOCOL IV 07/30/24 09:00 08/29/24 08:59 08/04/24 12:20 25 MLS/HR Magnesium Sulfate 50 ml @ 0 mls/hr PROTOCOL IV 08/03/24 09:30 08/03/24 09:18 DC Magnesium Sulfate 50 ml @ 0 mls/hr PROTOCOL PRN IV OTHER [SEE ORDER COMMENTS] 07/27/24 04:00 07/27/24 13:42 DC 07/27/24 07:59 12.5 MLS/HR Meropenem (Merrem 1gm) 1 gm Q12H IVPB 07/31/24 15:30 08/10/24 15:29 08/05/24 02:37 1 GM Ondansetron HCl (zoFRAN 4MG INJ) 4 mg Q6H PRN IV NAUSEA/VOMITING 07/27/24 02:30 08/26/24 02:29 Piperacillin Sod/ Tazobactam Sod 50 ml @ 12.5 mls/hr Q8H IV 07/27/24 05:00 07/27/24 14:15 DC 07/27/24 12:14 12.5 MLS/HR Potassium Chloride 100 ml @ 100 mls/hr AD PRN IV POTASSIUM PROTOCOL 07/27/24 04:00 08/26/24 03:59 Potassium Chloride (K-Dur 10meq Sr Tab) 10 meq AD PRN PO POTASSIUM PROTOCOL 07/30/24 06:30 08/26/24 03:59 08/03/24 13:46 10 MEQ Potassium Chloride (K-Dur/Klor-Con 20meq) 10 meq AD PRN PO POTASSIUM PROTOCOL 07/27/24 04:00 07/30/24 06:22 DC 07/29/24 08:07 10 MEQ Potassium Chloride (KCl 10% Elixir 20meq/15ml) 10 meq AD PRN PO POTASSIUM PROTOCOL 07/27/24 04:00 08/26/24 03:59 Sodium Bicarbonate (Sodium Bicarbonate) 650 mg TID PRN PO INDIGESTION 07/27/24 12:00 08/26/24 11:59 Sodium Chloride 1,000 ml @ 0 mls/hr Q0M IV 08/01/24 12:00 08/31/24 11:59 Sodium Chloride 1,000 ml @ 100 mls/hr Q10H IV 07/27/24 03:30 07/30/24 15:05 DC 07/30/24 12:31 100 MLS/HR Tamsulosin HCl (FloMAX) 0.4 mg DAILY PO 07/28/24 09:00 08/27/24 08:59 08/05/24 08:53 0.4 MG Vancomycin HCl 250 ml @ 125 mls/hr ONCE IV 07/27/24 02:30 07/27/24 02:32 DC Vancomycin HCl 250 ml @ 125 mls/hr Q24H IV 07/28/24 01:00 07/27/24 14:15 DC Vancomycin HCl (Vancomycin Protocol) 1 each AD IV 07/27/24 00:00 07/27/24 14:21 DC Vitamin B Complex/ Vit C/Folic Acid (Nephrovite Tablet) 1 cap DAILY PO 07/28/24 09:00 08/27/24 08:59 08/05/24 08:53 1 CAP DIAGNOSTICS / RADIOLOGY: [ ] ASSESSMENT: Suspecting sepsis secondary right scrotal abscess, POA Epididymal orchitis, left side with abscess, POA 08/01/24 s/p I/D Right ischiorectal/perineal abscess tracking to the right hemiscrotum, 16 x 12 x 10 cm. with Wound vac Right testicular cellulitis POA Urinary retention requiring Thomas catheter POA Acute kidney injury with CKD POA improving Hypertension POA Acute leukocytosis POA improving Microcytic hypochromic anemia iron deficiency POA Acute thrombocytosis POA Uncontrolled diabetes POA Hyperlipidemia POA Morbid Obesity POA Coronary artery disease POA Severe Protein calorie Malnutrition PAD with hx of AKA to the left side Obesity Hypoventilation Syndrome Metabolic acidosis improving electrolytes derangement: hypomagnesemia History Nephrotic syndrome functional decline POA Hallucination not present POA Uncontrolled type II diabetes with hyperglycemia PLAN: Admit: Medical floor condition: Guarded Status: Full IVF: heplock Consultants senior compliance officer's, Infectious Disease, Urology and psychiatry Antibiotics: Antibiotics changed to Merrem been1 g every12 hours leukocytosis improving. Procedure I and D of scrotal mass with wound VAC postop day 3 Intraoperative Wound cultures scrotal drainage was sent for cultures we will follow-up Continue with local wound care wound VAC. We will be changed on Tuesday Labs cbc, cmp, mag+ Inflammatory markers every other day Continue a.c. HS with sliding scale started premeal5 units of regular and currently on [id number] units Lantus b.i.d. Avoid NSAIDs strict I&O we will monitor renal function we will follow senior compliance officer's recommendations Thomas care Replace electrolytes as needed as per protocol to keep potassium above 4.0 magnesium 2.0. We will monitor H&H trend to keep hemoglobin above 7.0 vitamin B complex vitamin C folic acid one tablet daily. Bicarb po t.i.d. bowel regiment: lactulose 20 gm PO BID PRN constipation Pain management: Gabapentin 100 t.i.d.. [place] 5/325 p.o. as needed for pain. Supportive measures: DVT ppx, GI ppx PT services out of bed to chair Supervising MD: Dr. Kahn c/d case mangagement: SNF versus LTAC for wound vac management and IV antibiotics This document was generated in part using voice recognition software, occasional wrong word or sound alike substitutions may have occurred due to the inherent limitations of voice recognition software. Read the chart carefully and recognize using context, where the substitutions have occurred. Although every effort was made to edit the content, can washer and typing errors may occur ATTESTATION BY PHYSICIAN I have seen and examined the patient. I reviewed the documentation, medical decision making, and treatment plan as noted by the mid-level provider above. I agree with the findings and plan of care. Olaf Kahn MD, ELIZABETH NP Aug 05, 2024 09:45
--- NOTE | 2024-08-05 13:05 | PN ---
FOLLOWUP PROGRESS NOTE SUBJECTIVE: A 49-year-old male with history of diabetes mellitus and hypertension. He initially presented with testicular cellulitis. He has had acute renal failure in the hospital. Creatinine has actually improved. The patient remains on the antibiotics and he is being seen as a followup visit for all of the above. REVIEW OF SYSTEMS: GENERAL: The patient is feeling weak and tired. HEENT: No change in vision. No change in hearing. CARDIOVASCULAR: There is no current chest pain or palpitations. PULMONARY: No shortness of breath. GASTROINTESTINAL: The patient is tolerating a diet. MUSCULOSKELETAL: Complains of weakness. PHYSICAL EXAMINATION: VITAL SIGNS: Blood pressure 131/72, pulse in the 60s, afebrile. GENERAL: Chronically ill male, older than appearing. HEENT: Head is atraumatic. Pupils equal, roving to light. Oropharynx is without exudate. Nares clear. NECK: There is no JVP. There is no thyromegaly, no mass. CARDIOVASCULAR: Regular. There is no S3, S4 gallop. LUNGS: Coarse with equal thoracic movement. ABDOMEN: Soft, nondistended, nontender. EXTREMITIES: Reveal no clubbing, no cyanosis. NEUROLOGIC: He is awake. He is alert. He is oriented. LABORATORY DATA: Sodium 134, potassium 4.2, BUN 35, creatinine 1.2. Hemoglobin 8.8, hematocrit 26, white cell count is 12,000. IMPRESSION: * Acute on chronic renal failure. * Cellulitis. * Diabetes mellitus. * Hypertension. PLAN: The patient continues with the antibiotics as prescribed. The patient's renal function is much improved and the patient is being seen as a followup visit. The patient's electrolytes have all been aggressively repleted. Blood pressure is under adequate control. We will continue to follow the patient closely. TID: [id number] RECEIPT: [id number]
--- NOTE | 2024-08-05 13:56 | NUR ---
REPORT GIVEN TO SAL CHAIREZ AT 1355.
--- NOTE | 2024-08-05 22:39 | PN ---
INFECTIOUS DISEASE FOLLOWUP NOTE DATE OF SERVICE: 08/05/2024 SUBJECTIVE: The patient is seen and examined at bedside. No fever or chills. Remained on antibiotic. No bleeding tendencies. No rashes or itchiness. No palpitation or orthopnea. Denied depression. No suicidal ideation. No dysuria or hematuria. PHYSICAL EXAMINATION: VITAL SIGNS: Temperature 97.3. EYES: No icterus. Pupils equal and reactive. HENT: No oral thrush seen. Moist oral mucosa. NECK: Supple, no JVD or thyromegaly. LUNGS: Good air entry. No rales, no rhonchi. CARDIOVASCULAR: S1, S2 regular. No murmurs heard. ABDOMEN: Full, soft. Bowel sound is present. Obese. No organomegaly. CENTRAL NERVOUS SYSTEM: Awake, alert, oriented x 3. No focal deficits. SKIN: No rashes, no itchiness. LYMPHATIC: No peripheral lymphadenopathy. BACK: No deformity, no pressure ulcer. MUSCULOSKELETAL: No joint swelling, erythema or tenderness. GENITOURINARY: Extensive wound involving the right scrotum, sealed with a wound vacuum, Thomas catheter in place. ASSESSMENT: A 49-year-old male with multiple problems, which include: * Sepsis. * Scrotal abscess, status post incision and drainage. * Epididymal orchitis. * Urinary tract infection. * Diabetes mellitus. * Renal failure. * Morbid obesity. PLAN: * Continue doxycycline. * Continue meropenem. * Continue fluconazole. * Continue vacuum-assisted wound closure. * Continue DVT prophylaxis. * Continue antidiabetic. * Monitor electrolytes. * The patient will follow up closely. TID: [id number] RECEIPT: [id number]
[2024-08-06] VITALS (8 sets, daily range): BP systolic 99–158; BP diastolic 66–87; PULSE 72–84; RESP 18–20; TEMP 97.5–98.3; O2SAT 95–96
[2024-08-06 05:35] LABS: BASOPHILS # (AUTO) 0.06 K/uL (0.00-0.20); BASOPHILS % (AUTO) 0.5 % (0.0-5.0); EOSINOPHILS # (AUTO) 0.29 K/uL (0.00-0.70); EOSINOPHILS % (AUTO) 2.4 % (0.0-8.0); HEMATOCRIT 28.5 % (42-54); LYMPHOCYTES # (AUTO) 3.1 K/uL (1.0-4.8); LYMPHOCYTES % (AUTO) 25.4 % (21.0-51.0); MEAN CORPUSCULAR HEMOGLOBIN 24.5 pg (27.0-33.0); MEAN CORPUSCULAR HGB CONC 31.9 g/dL (32.0-36.0); MEAN CORPUSCULAR VOLUME 76.6 fL (79-99); MONOCYTES # (AUTO) 0.7 K/uL (0.1-1.0); MONOCYTES % (AUTO) 5.5 % (3.0-13.0); NEUTROPHILS % (AUTO) 65.4 % (40.0-77.0); PLATELET COUNT (AUTO) 597 K/uL (130-400); RED BLOOD CELL COUNT(AUTO) 3.72 MIL/uL (4.50-6.20); WHITE BLOOD COUNT (AUTO) 12.2 K/uL (4.8-10.8)
[2024-08-06 05:47] LABS: ALBUMIN 1.4 g/dL (3.5-5.0); BILIRUBIN,TOTAL 0.2 mg/dL (0.2-1.0); CREATININE 1.2 mg/dL (0.5-1.3); MAGNESIUM 1.6 mg/dL (1.80-2.40); POTASSIUM 3.9 mmol/L (3.5-5.1)
--- NOTE | 2024-08-06 09:47 | PN ---
[facility] PROGRESS NOTE Date of Service: Aug 06, 2024 Time of Service: 09:41 SUBJECTIVE: [ ] This is a 49-year-old that was admitted early this morning with chief complaints of testicular cellulitis. Patient is fully awake alert oriented x3 patient has a Thomas catheter secondary to urinary retention were being urology started patient on Flomax. Patient has no history of urinary retention. GEOVANNI on this admission dean following. Patient has a history of nephrotic syndrome we will discontinue vancomycin and Zosyn. 07/28/24 patient is seen patient has been having temperature T-max 100.9 and leukocytosis being followed by infectious disease. Patient is fully awake alert oriented x3 07/29/24 patient appears to be doing better however continues with low-grade temp ID following for antibiotics stewardship. Leukocytosis trending down slowly. Right testicle erythema and swollen , tender to palpate. continue with indwelling catheter tender to. RN reached out to Urology pending consult. 07/30/24 we repeat ultrasound testicular pending results. Leukocytosis is persistent however is afebrile and on empiric antibiotics. The patient offers no new complaints. 07/31/2024 patient is lying in bed patient was encouraged to get out of bed to chair as tolerated. Primary nurse reports scrotal abscess is now draining and cultures were collected. Patient continues with leukocytosis ID following on empiric antibiotics. Urology recommending Merrem we will see what ID if patient is a candidate for Merrem. No fevers last night tolerating antibiotics reports no diarrhea. 08/01/24 patient seen and examined. Waiting for wound cultures. Urology plan to do I and D and debridement of the right scrotal abscess with possible wound VAC. Case management for discharge planning. 08/02/34 was seen earlier, patient is fully awake alert oriented x3. Postop day one tolerating wound VAC. We had a long discussion with patient in regards he might need to return back to LTAC. There are multiple concerns with patient and significant other to return back to facility. Otherwise patient has been afebrile leukocytosis trending down. All questions were addressed we will discuss case with case management. 08/03/24 patient is seen patient recuperating well postop day two tolerating wound VAC. Denied chest pain or shortness for breath. Waiting for intraoperative cultures. Sugars are elevated we will start premeal insulin continue with long- acting. 08/04/2024 patient is seen patient is tolerating wound VAC. Waiting for cultures. No fevers no chills overnight 08/05/24 patient is lying in bed patient appears in no acute distress. Patient tolerating wound VAC. All cultures are final waiting for ID final recommendations he is recommending patient will need LTAC for wound care management for further debridement per information systems specialist in wound VAC management. Patient continues on antibiotics. 08/06/24 patient is seen he is fully awake alert oriented x3. he reports no fever or chills he remains on IV antibiotics being followed by ID tolerating reports no diarrhea. Offers no new complaints. REVIEW OF SYSTEMS CONSTITUTIONAL: Denies fevers, chills, or night sweats. No unintentional weight loss reported. NEUROLOGICAL: Denies headache, amaurosis fugax, motor weakness, sensory deficit, vertigo/spinning sensation, gait abnormalities, or tremors. 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 CARDIOVASCULAR: Denies any exertional angina, dyspnea on exertion, orthopnea, paroxysmal nocturnal dyspnea, palpitations, life-threatening arrhythmias, nolvia ication. PULMONARY: Denies any shortness of breath, cough, phlegm/sputum, hemoptysis, pleuritic chest pain. SLEEP: Denies morning headaches, daytime somnolence or napping. Denies difficulty falling asleep, staying asleep, waking from sleep. Denies knowledge of snoring. GASTROINTESTINAL: Denies any type of dysphagia to either liquids or solids. Denies nausea, vomiting, pyrosis, early satiety, abdominal pain, diarrhea, constipation, or changes in stool consistency or caliber. Denies coffee-ground emesis, hematemesis, hematochezia, or melanotic stools. GENITOURINARY: Denies frequency, urgency, nocturia, hematuria or incontinence (Storage/Irritative symptoms.) Low urinary stream, straining to void, urinary intermittency or hesitancy, splitting of the voiding stream, terminal dribbling. ENDOCRINOLOGIC: Denies polyuria, polydipsia, polyphagia or heat/cold intolerances. HEMATOLOGIC: Denies thrombophilia/previous clots, or coagulopathy/bleeding disorders. ONCOLOGIC: Denies personal history of malignancy. DERMATOLOGIC: Denies rashes or pruritus. PSYCHIATRIC: Denies any suicidal or homicidal ideation. Denies hallucinations. PHYSICAL EXAM GENERAL APPEARANCE: The patient is awake, alert, and oriented, in no acute cardiopulmonary distress. NEUROLOGICAL: Cranial nerves II-XII grossly intact. Motor is 5/5 in bilateral upper and lower extremities proximal to distal. No sensory deficits. HEENT: Face is symmetric. Pupils are equal and reactive. Extraocular movements are intact. NECK: Supple. No JVD. No thyromegaly. No submental, submandibular, pre- /postauricular, occipital or supraclavicular lymphadenopathy. CHEST: Normal chest expansion. No Telemetry. LUNGS: Absence of any rales, rhonchi or any wheezing. CARDIOVASCULAR: Regular. S1 and S2 normal. No appreciable rubs, murmurs or gallops. ABDOMEN: Soft, nontender, and nondistended. There is no rebound, voluntary guarding, or rigidity. : Deferred. No Thomas. EXTREMITIES: Non-edematous and not cyanotic. No clubbing. Good capillary refill. SKIN: Swollen testicles Vital Signs (last 8hr) Date Time Temp Pulse Resp B/P (MAP) Pulse Ox O2 Delivery O2 Flow Rate FiO2 08/06/24 08:00 97.5 75 19 141/83 95 Room Air 08/06/24 04:41 98.2 75 18 146/86 97 Room Air LABS: Laboratory: Test 08/06/24 05:34 08/06/24 05:12 Range/Units Whole Blood Glucose 212 H 70-110 MG/DL White Blood Count 12.2 H 4.8-10.8 K/uL Red Blood Count 3.72 L 4.50-6.20 MIL/uL Hemoglobin 9.1 L 14.0-18.0 g/dL Hematocrit 28.5 L 42-54 % Mean Corpuscular Volume 76.6 L 79-99 fL Mean Corpuscular Hemoglobin 24.5 L 27.0-33.0 pg Mean Corpuscular Hemoglobin Concent 31.9 L 32.0-36.0 g/dL Red Cell Distribution Width 15.0 11.0-15.5 % Platelet Count 597 H 130-400 K/uL Mean Platelet Volume 9.2 7.5-10.5 fL Immature Granulocyte % (Auto) 0.8 0-1 % Neutrophils (%) (Auto) 65.4 40.0-77.0 % Lymphocytes (%) (Auto) 25.4 21.0-51.0 % Monocytes (%) (Auto) 5.5 3.0-13.0 % Eosinophils (%) (Auto) 2.4 0.0-8.0 % Basophils (%) (Auto) 0.5 0.0-5.0 % Neutrophils # (Auto) 8.0 H 1.8-7.7 K/uL Lymphocytes # (Auto) 3.1 1.0-4.8 K/uL Monocytes # (Auto) 0.7 0.1-1.0 K/uL Eosinophils # (Auto) 0.29 0.00-0.70 K/uL Basophils # (Auto) 0.06 0.00-0.20 K/uL Absolute Immature Granulocyte (auto 0.10 0-1 K/uL Nucleated Red Blood Cells 0.0 0.0-0.19 % Sodium Level 136 136-145 mmol/L Potassium Level 3.9 3.5-5.1 mmol/L Chloride Level 104 101-111 mmol/L Carbon Dioxide Level 28 21-32 mmol/L Blood Urea Nitrogen 30 H 7-18 mg/dL Creatinine 1.2 0.5-1.3 mg/dL Glomerular Filtration Rate Calc 75 >90 mL/min Random Glucose 234 H 70-105 mg/dL Total Calcium 8.5 8.5-10.1 mg/dL Magnesium Level 1.60 L 1.80-2.40 mg/dL Total Bilirubin 0.2 0.2-1.0 mg/dL Aspartate Amino Transf (AST/SGOT) 20 10-37 U/L Alanine Aminotransferase (ALT/SGPT) 26 12-78 U/L Alkaline Phosphatase 195 H 50-136 U/L Total Protein 7.0 6.0-8.3 g/dL Albumin 1.4 L 3.5-5.0 g/dL Current Medications Medications (Trade) Dose Ordered Sig/Gaby Route PRN Reason Start Time Stop Time Status Last Admin Dose Admin Acetaminophen (TYLenol 325MG TAB) 650 mg Q4H PRN PO MILD PAIN (1-3) 07/27/24 02:30 08/26/24 02:29 Acetaminophen (TYLenol 325MG TAB) 650 mg Q6H PRN PO TEMPERATURE GREATER THAN 101.5 07/27/24 02:30 08/26/24 02:29 07/29/24 17:35 650 MG Acetaminophen/ Hydrocodone Bitart (NORco 5/325MG) 1 tab Q6H PRN PO MODERATE PAIN (4-6) 07/27/24 02:30 08/01/24 02:29 DC 07/30/24 15:08 1 TAB Aspirin (Aspirin 81mg Chew Tab) 81 mg AM PO 07/30/24 09:00 08/29/24 08:59 08/06/24 09:05 81 MG Atorvastatin Calcium (LIPItor 40MG) 40 mg HS PO 07/29/24 21:00 08/28/24 20:59 08/05/24 22:08 40 MG Ceftriaxone Sodium (ROCEphine 1G INJ) 1 gm Q24H IVPB 07/27/24 14:30 07/29/24 21:33 DC 07/28/24 14:22 1 GM Ceftriaxone Sodium (ROCEphine 1G INJ) 1 gm Q24H IVPB 07/29/24 22:00 08/01/24 15:41 DC 07/31/24 22:31 1 GM Clotrimazole (Lotrimin) 1 APPL TP BID BID TP 07/29/24 21:00 08/28/24 20:59 08/06/24 09:06 1 GM Dextrose (D50w) 50 ml AD PRN IV HYPOGLYCEMIA PROTOCOL 07/27/24 04:00 08/26/24 03:59 Docusate Sodium (COLace 100MG CAP) 100 mg BID PO 08/03/24 21:00 09/02/24 20:59 08/06/24 09:05 100 MG Doxycycline Hyclate 250 ml @ 125 mls/hr Q12H IV 07/27/24 16:00 07/29/24 21:35 DC 07/29/24 03:37 125 MLS/HR Doxycycline Hyclate 250 ml @ 125 mls/hr Q12H IV 07/29/24 23:59 08/01/24 22:57 DC 08/01/24 15:54 125 MLS/HR Doxycycline Hyclate 250 ml @ 125 mls/hr Q12H IV 08/02/24 04:00 08/12/24 03:59 08/06/24 04:16 125 MLS/HR Famotidine (Pepcid 20mg Tab) 20 mg Q48H PO 07/27/24 02:30 08/26/24 02:29 08/06/24 02:55 20 MG Ferrous Sulfate (Ferrous Sulfate) 325 mg DAILY PO 07/30/24 09:00 08/29/24 08:59 08/06/24 09:05 325 MG Fluconazole (DiFLUCan 100 mg TAB) 100 mg DAILY PO 08/02/24 11:00 08/04/24 12:53 DC 08/04/24 09:22 100 MG Fluconazole/ Sodium Chloride 100 ml @ 100 mls/hr Q24H IV 08/04/24 13:00 09/03/24 12:59 08/05/24 12:14 100 MLS/HR Gabapentin (NEURontin 100 mg CAP) 100 mg BID PO 07/29/24 21:00 08/28/24 20:59 08/06/24 09:05 100 MG Glucagon (Glucagon 1mg Kit) 1 mg AD PRN IM HYPOGLYCEMIA PROTOCOL 07/27/24 04:00 08/26/24 03:59 Home Med (Home Medication) DAPAGLIFLOZIN 5MG TAB DAILY PO 07/30/24 09:00 08/29/24 08:59 08/06/24 09:07 1 EACH Hydromorphone HCl (DiLAUDid 0.5MG INJ) 0.5 mg Q3H PRN IVP SEVERE PAIN (7-10) 08/01/24 19:30 08/06/24 19:29 08/06/24 02:56 0.5 MG Hydromorphone HCl (DiLAUDid 0.5MG INJ) 0.5 mg Q3H3 PRN IVP SEVERE PAIN (7-10) 07/27/24 13:30 08/01/24 13:29 DC 07/31/24 05:57 0.5 MG Hydromorphone HCl (DiLAUDid 1MG INJ) 1 mg ONCE STAT IVP 08/03/24 12:49 08/03/24 13:11 DC 08/03/24 13:21 1 MG Insulin Glargine (LANtus 100 UNITS/ML 10 ML VIAL) 12 units HS SQ 07/30/24 21:00 08/29/24 20:59 08/05/24 22:10 12 UNITS Insulin Human Regular (humuLIN R 100 UNIT/ML 3ML) 5 unit TIDAC SQ 08/03/24 11:30 09/02/24 11:29 08/06/24 06:42 5 UNIT Insulin Human Regular (humuLIN R 100 UNIT/ML 3ML) INSULIN SLIDING SCAL... ACHS SQ 07/27/24 07:30 08/26/24 07:29 08/06/24 06:41 3 UNIT Lactulose (Constulose 20gm/ 30ml Udcup) 20 gm BID PRN PO CONSTIPATION 07/30/24 08:30 08/29/24 08:29 08/05/24 12:20 20 GM Magnesium Sulfate 50 ml @ 0 mls/hr PROTOCOL IV 07/27/24 10:00 07/27/24 13:42 DC Magnesium Sulfate 50 ml @ 0 mls/hr PROTOCOL IV 07/27/24 14:00 07/30/24 08:49 DC 07/30/24 06:27 25 MLS/HR Magnesium Sulfate 50 ml @ 0 mls/hr PROTOCOL IV 07/30/24 09:00 08/29/24 08:59 08/06/24 06:43 25 MLS/HR Magnesium Sulfate 50 ml @ 0 mls/hr PROTOCOL IV 08/03/24 09:30 08/03/24 09:18 DC Magnesium Sulfate 50 ml @ 0 mls/hr PROTOCOL PRN IV OTHER [SEE ORDER COMMENTS] 07/27/24 04:00 07/27/24 13:42 DC 07/27/24 07:59 12.5 MLS/HR Meropenem (Merrem 1gm) 1 gm Q12H IVPB 07/31/24 15:30 08/10/24 15:29 08/06/24 04:17 1 GM Ondansetron HCl (zoFRAN 4MG INJ) 4 mg Q6H PRN IV NAUSEA/VOMITING 07/27/24 02:30 08/26/24 02:29 Piperacillin Sod/ Tazobactam Sod 50 ml @ 12.5 mls/hr Q8H IV 07/27/24 05:00 07/27/24 14:15 DC 07/27/24 12:14 12.5 MLS/HR Potassium Chloride 100 ml @ 100 mls/hr AD PRN IV POTASSIUM PROTOCOL 07/27/24 04:00 08/26/24 03:59 Potassium Chloride (K-Dur 10meq Sr Tab) 10 meq AD PRN PO POTASSIUM PROTOCOL 07/30/24 06:30 08/26/24 03:59 08/03/24 13:46 10 MEQ Potassium Chloride (K-Dur/Klor-Con 20meq) 10 meq AD PRN PO POTASSIUM PROTOCOL 07/27/24 04:00 07/30/24 06:22 DC 07/29/24 08:07 10 MEQ Potassium Chloride (KCl 10% Elixir 20meq/15ml) 10 meq AD PRN PO POTASSIUM PROTOCOL 07/27/24 04:00 08/26/24 03:59 Sodium Bicarbonate (Sodium Bicarbonate) 650 mg TID PRN PO INDIGESTION 07/27/24 12:00 08/26/24 11:59 Sodium Chloride 1,000 ml @ 0 mls/hr Q0M IV 08/01/24 12:00 08/31/24 11:59 Sodium Chloride 1,000 ml @ 100 mls/hr Q10H IV 07/27/24 03:30 07/30/24 15:05 DC 07/30/24 12:31 100 MLS/HR Tamsulosin HCl (FloMAX) 0.4 mg DAILY PO 07/28/24 09:00 08/27/24 08:59 08/06/24 09:05 0.4 MG Vancomycin HCl 250 ml @ 125 mls/hr ONCE IV 07/27/24 02:30 07/27/24 02:32 DC Vancomycin HCl 250 ml @ 125 mls/hr Q24H IV 07/28/24 01:00 07/27/24 14:15 DC Vancomycin HCl (Vancomycin Protocol) 1 each AD IV 07/27/24 00:00 07/27/24 14:21 DC Vitamin B Complex/ Vit C/Folic Acid (Nephrovite Tablet) 1 cap DAILY PO 07/28/24 09:00 08/27/24 08:59 08/06/24 09:05 1 CAP DIAGNOSTICS / RADIOLOGY: [ ] ASSESSMENT: Suspecting sepsis secondary right scrotal abscess, POA Epididymal orchitis, left side with abscess, POA 08/01/24 s/p I/D Right ischiorectal/perineal abscess tracking to the right hemiscrotum, 16 x 12 x 10 cm. with Wound vac Right testicular cellulitis POA Urinary retention requiring Thomas catheter POA Acute kidney injury with CKD POA improving Hypertension POA Acute leukocytosis POA improving Microcytic hypochromic anemia iron deficiency POA Acute thrombocytosis POA Uncontrolled diabetes POA Hyperlipidemia POA Morbid Obesity POA Coronary artery disease POA Severe Protein calorie Malnutrition PAD with hx of AKA to the left side Obesity Hypoventilation Syndrome Metabolic acidosis improving electrolytes derangement: hypomagnesemia History Nephrotic syndrome functional decline POA Hallucination not present POA Uncontrolled type II diabetes with hyperglycemia PLAN: Admit: Medical floor condition: Guarded Status: Full IVF: [facility] dean's, Infectious Disease, Urology and psychiatry Antibiotics: Antibiotics changed to Merrem , doxycycline, fluconazole IV Procedure I and D of scrotal mass with wound VAC tolerating wound VAC. Continue with local wound care wound VAC. We will be changed on Tuesday Labs cbc, cmp, mag+ Inflammatory markers every other day Continue a.c. HS with sliding scale started premeal5 units of regular and currently on [id number] units Lantus b.i.d. Avoid NSAIDs strict I&O we will monitor renal function we will follow dean's recommendations Thomas care Replace electrolytes as needed as per protocol to keep potassium above 4.0 magnesium 2.0. We will monitor H&H trend to keep hemoglobin above 7.0 vitamin B complex vitamin C folic acid one tablet daily. bowel regiment: lactulose 20 gm PO BID PRN constipation Pain management: Gabapentin 100 t.i.d.. [place] 5/325 p.o. as needed for pain. Supportive measures: DVT ppx, GI ppx PT services out of bed to chair Supervising MD: Dr. Ivan c/d case mangagement: SNF versus LTAC for wound vac management and IV antibiotics waiting for spouse to sign consent This document was generated in part using voice recognition software, occasional wrong word or sound alike substitutions may have occurred due to the inherent limitations of voice recognition software. Read the chart carefully and recognize using context, where the substitutions have occurred. Although every effort was made to edit the content, polymerization oven operator and typing errors may occur ATTESTATION BY PHYSICIAN I have seen and examined the patient. I reviewed the documentation, medical decision making, and treatment plan as noted by the mid-level provider above. I agree with the findings and plan of care. JANET IVAN MD, ELIZABETH NP Aug 06, 2024 09:47
--- NOTE | 2024-08-06 12:37 | PN ---
NEPHROLOGY PROGRESS NOTE Date/Time Patient Seen: Aug 06, 2024 Reason for Consultation: 12:36 SUBJECTIVE: This is a 49-year-old male with a past medical history of diabetes mellitus type 2, hypertension, peripheral arterial disease with left AKA, coronary artery disease, hyperlipidemia, GERD, PAD, and obesity Patient presented to the emergency room for testicular pain and swelling Thomas in place due to urinary retention, he was seen by Urology Blood cultures has been negative Continues on antibiotics as per ID Nurse reports guarded abscess ruptured and wound cultures were sent, pending results Were consulted for renal failure. Renal function and electrolytes are stable. S/p Incision and drainage with debridement of right perineal and ischiorectal abscess tracking into the scrotum on 08/01/[address] Choudhury Wound Vac in place UA positive for proteinuria. Case management coordinating LTAC placement Patient was seen in the medical floor, in no acute distress REVIEW OF SYSTEMS: GENERAL: Positive for testicular pain and swelling NEUROLOGIC: Negative for any blurry vision, blind spots, double vision, facial asymmetry, dysphagia, dysarthria, hemiparesis, hemisensory deficits, vertigo, ataxia. HEENT: Negative for any head trauma, neck trauma, neck stiffness, photophobia, phonophobia, sinusitis, rhinitis. CARDIAC: Negative for any chest pain, dyspnea on exertion, paroxysmal nocturnal dyspnea, peripheral edema. PULMONARY: Negative for any shortness of breath, wheezing, COPD, or TB exposure. GASTROINTESTINAL: Negative for any abdominal pain, nausea, vomiting, bright red blood per rectum, melena. GENITOURINARY: Negative for any dysuria, hematuria, incontinence. INTEGUMENTARY: Negative for any rashes, cuts, insect bites. RHEUMATOLOGIC: Negative for any joint pains, photosensitive rashes, history of vasculitis or kidney problems. HEMATOLOGIC: Negative for any abnormal bruising, frequent infections or bleeding. PHYSICAL EXAM: GENERAL: Alert and oriented x 3. No acute distress. Well-nourished. EYES: EOMI. Anicteric. HENT: Moist mucous membranes. No scleral icterus. No cervical lymphadenopathy. LUNGS: Clear to auscultation bilaterally. No accessory muscle use. CARDIOVASCULAR: Regular rate and rhythm. No murmur. No JVD. ABDOMEN: Soft, non-tender and non-distended. No palpable masses. EXTREMITIES: 2+ edema. Non-tender. SKIN: No rashes or lesions. Warm. NEUROLOGIC: No focal neurological deficits. CN II-XII grossly intact, but not individually tested. PSYCHIATRIC: Cooperative. Appropriate mood and affect. LABORATORY: [ ] Hematology Labs: Test 08/06/24 05:12 Range/Units White Blood Count 12.2 H 4.8-10.8 K/uL Red Blood Count 3.72 L 4.50-6.20 MIL/uL Hemoglobin 9.1 L 14.0-18.0 g/dL Hematocrit 28.5 L 42-54 % Mean Corpuscular Volume 76.6 L 79-99 fL Mean Corpuscular Hemoglobin 24.5 L 27.0-33.0 pg Mean Corpuscular Hemoglobin Concent 31.9 L 32.0-36.0 g/dL Red Cell Distribution Width 15.0 11.0-15.5 % Platelet Count 597 H 130-400 K/uL Mean Platelet Volume 9.2 7.5-10.5 fL Immature Granulocyte % (Auto) 0.8 0-1 % Neutrophils (%) (Auto) 65.4 40.0-77.0 % Lymphocytes (%) (Auto) 25.4 21.0-51.0 % Monocytes (%) (Auto) 5.5 3.0-13.0 % Eosinophils (%) (Auto) 2.4 0.0-8.0 % Basophils (%) (Auto) 0.5 0.0-5.0 % Neutrophils # (Auto) 8.0 H 1.8-7.7 K/uL Lymphocytes # (Auto) 3.1 1.0-4.8 K/uL Monocytes # (Auto) 0.7 0.1-1.0 K/uL Eosinophils # (Auto) 0.29 0.00-0.70 K/uL Basophils # (Auto) 0.06 0.00-0.20 K/uL Absolute Immature Granulocyte (auto 0.10 0-1 K/uL Nucleated Red Blood Cells 0.0 0.0-0.19 % Chemistry Labs: Test 08/06/24 11:02 08/06/24 05:12 Range/Units Whole Blood Glucose 209 H 70-110 MG/DL Sodium Level 136 136-145 mmol/L Potassium Level 3.9 3.5-5.1 mmol/L Chloride Level 104 101-111 mmol/L Carbon Dioxide Level 28 21-32 mmol/L Blood Urea Nitrogen 30 H 7-18 mg/dL Creatinine 1.2 0.5-1.3 mg/dL Glomerular Filtration Rate Calc 75 >90 mL/min Random Glucose 234 H 70-105 mg/dL Total Calcium 8.5 8.5-10.1 mg/dL Magnesium Level 1.60 L 1.80-2.40 mg/dL Total Bilirubin 0.2 0.2-1.0 mg/dL Aspartate Amino Transf (AST/SGOT) 20 10-37 U/L Alanine Aminotransferase (ALT/SGPT) 26 12-78 U/L Alkaline Phosphatase 195 H 50-136 U/L Total Protein 7.0 6.0-8.3 g/dL Albumin 1.4 L 3.5-5.0 g/dL Diagnostic REASON: RIGHT ARM PAIN ORDERING PHYSICIAN: RICHAR JOSEPH NP PROCEDURE: VENOUS UNI - US VENOUS DOPPLER UNILATERAL US VENOUS DOPPLER UNILATERAL HISTORY: Right arm pain COMPARISON: None TECHNIQUE: Right upper extremity venous Doppler ultrasound study was performed. FINDINGS: The right subclavian, axillary, and brachial veins are visualized. Normal flow with augmentation and compressibilities are demonstrated. Right cephalic vein is patent. Noncompressible thrombus is seen in the right basilic vein consistent with superficial thrombophlebitis. IMPRESSION: 1. No evidence of deep venous thrombosis is seen. Noncompressible thrombus is seen in the right basilic vein consistent with superficial thrombophlebitis. REASON: repeat to compared from admssion swollen ORDERING PHYSICIAN: RICHAR JOSEPH NP PROCEDURE: SCROTUM - US SCROTUM & CONTENTS US SCROTUM & CONTENTS HISTORY: Follow-up scrotal abscess COMPARISON: None TECHNIQUE: Duplex scrotal ultrasound study was performed. FINDINGS: The right testes measures 3.8 x 2 x 1.6 cm. The left testes measures 2.3 x 2.1 cm. Normal flow is seen of left testes and bilateral epididymides. Mild increased flow is seen of the right testes suggested of right orchitis. There is right scrotal abscess measuring 7.9 x 3.6 x 5 cm with adjacent wall thickening. Normal flow is demonstrated in the testes and epididymides bilaterally. No hydroceles or varicocele is seen. IMPRESSION: 1. Mild increased flow is seen of the right testes suggested of right orchitis. There is right scrotal abscess measuring 7.9 x 3.6 x 5 cm with adjacent wall thickening. DICTATED BY: BRIAN LUBIN MD DATE: 07/30/24 1131 DICTATED BY: BRIAN LUBIN MD DATE: 08/02/24 1544 REASON: testicular pain and swelling ORDERING PHYSICIAN: JACQUELYN GIBBS PROCEDURE: SCROTUM - US SCROTUM & CONTENTS US SCROTUM & CONTENTS HISTORY: Testicular pain COMPARISON: None TECHNIQUE: Duplex scrotal ultrasound study was performed. FINDINGS: The right testes measures 3.6 x 1.4 x 2.7 cm. The left testes measures 3.5 x 1.6 x 2 cm. No evidence of intratesticular mass or abnormal calcification is seen. Normal flow is demonstrated in the left testes and left epididymis. There is left epididymal cyst measuring 3 mm. Hypoechoic focus is seen in the epididymal head with adjacent vascularity measuring 4.3 x 1.9 x 3.8 cm at the inferior aspect of the left testes. Slight increased flow is seen of the right testes and right epididymis suspicious for right epididymal orchitis. No hydroceles or varicocele is seen. IMPRESSION: 1. Findings may be related to mild right epididymal orchitis. DICTATED BY: BRIAN LUBIN MD DATE: 07/27/24 0902 ASSESSMENT: Acute on chronic renal failure Nephrotic syndrome Anemia Metabolic acidosis Right testicular clear cellulitis Urinary retention S/p Thomas catheter Electrolyte derangement Coronary artery disease Uncontrolled Diabetes mellitus type 2 Hyperlipidemia PAD S/p left AKA Severe protein calorie malnutrition Obesity PLAN: Labs, diagnostic, radiologic exams reviewed and interpreted by myself and supervising physician. We have reviewed external records in detail Case management coordinating LTAC placement. Require close monitoring of renal function and electrolytes Order CBC, CMP, and electrolytes in am Continue with antibiotics Renal diabetic diet BiPAP as necessary, for respiratory distress Monitor blood pressure adjust medication doses as needed Avoid hypotensive episodes May use Dilaudid 0.5 mg IV every 6 hours as needed for severe pain Monitor blood sugars Strict intake, output, and daily weight should be monitored Please renally adjust medications Avoid nephrotoxic and nonsteroidal drugs Avoid contrast if possible Will continue to monitor renal function, anemia, electrolytes Treatment plan discussed with patient Questions were answered We have discussed with the other team physicians in detail about the care plan We will continue to monitor the patient closely ATTESTATION BY PHYSICIAN I have seen and examined the patient. I reviewed the documentation, medical decision making, and treatment plan as noted by the mid-level provider above. I agree with the findings and plan of care. KRUPA MANDEL MD, ELIZABETH FNP Aug 06, 2024 12:37
--- NOTE | 2024-08-06 15:16 | NUR ---
[facility] Follow-up: Patient re-assessed by wound healing team. See wound assessment. Assessment and recommendations provided to primary nurse. Education provided. Wound vac changed. Addendum: 08/06/24 at 1648 by MATTEO LEARY RN RN/ Amended: Links added.
[2024-08-06] MEDS: HYDROcodone/APAP 5/325 1 TAB TABLET PO SCH (21:57)
--- NOTE | 2024-08-06 22:50 | PN ---
INFECTIOUS DISEASE PROGRESS NOTE Date of Service: Aug 06, 2024 SUBJECTIVE: This is a 49-year-old male patient presented to the hospital with chief complaint of right testicle pain. A scrotal ultrasound done on admission showed mild right epididymal orchitis. Patient was seen and examined at bedside in room 317. Patient is awake, alert and oriented x3. Patient is status post I&D and debridement of the right scrotal abscess with a wound VAC application on 08/01/2024. Patient is afebrile this morning, temperature is 98.2 and a WBC of 12.2. The final scrotal abscess culture results came back positive for Irina albicans. No episodes of emesis reported. Patient will continue on fluconazole, doxycycline and Meropenem. Patient is pending family decision on placement. No other issues reported by nursing. PHYSICAL EXAM EYES: Anicteric. Pupils equal and reactive. Right eye blindness. HENT: No oral thrush seen, moist Oral mucosa. NECK: Supple, no JVD or thyromegaly. LUNGS: Good air entry. No rales, no rhonchi. CARDIOVASCULAR: S1, S2 regular. No murmur heard. ABDOMEN: Soft, non tender, bowel sounds present, no organomegaly. CENTRAL NERVOUS SYSTEM: Awake, alert, oriented x 3. SKIN: No rashes, no swelling. LYMPHATICS: No peripheral lymphadenopathy. MUSCULOSKELETAL: No joint swelling, erythema or tenderness. EXTREMITIES: No cyanosis or clubbing. 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 BACK: No deformity, no pressure ulcer. GENITOURINARY: No dysuria or hematuria. Thomas catheter. SCROTUM: Right Scrotal abscess, status post I&D with wound VAC placement. Vital Sign (Last 12 Hours) 08/06/24 08/06/24 08/06/24 12:00 16:00 20:00 Temp 98.2 98.1 98.1 Pulse 79 79 72 Resp 20 19 19 B/P (MAP) 147/87 144/81 158/74 Pulse Ox 96 96 95 O2 Delivery Room Air Room Air Room Air FiO2 21 Intake & Output (last 24hrs) 08/05/24 08/05/24 08/06/24 15:00 23:00 07:00 Intake Total 400.0 ml Output Total 1300 ml 840 ml Balance -1300 ml -440.0 ml LABS: Laboratory: Test 08/06/24 18:55 3/10/25 05:12 Range/Units Whole Blood Glucose 284 H 70-110 MG/DL White Blood Count 12.2 H 4.8-10.8 K/uL Red Blood Count 3.72 L 4.50-6.20 MIL/uL Hemoglobin 9.1 L 14.0-18.0 g/dL Hematocrit 28.5 L 42-54 % Mean Corpuscular Volume 76.6 L 79-99 fL Mean Corpuscular Hemoglobin 24.5 L 27.0-33.0 pg Mean Corpuscular Hemoglobin Concent 31.9 L 32.0-36.0 g/dL Red Cell Distribution Width 15.0 11.0-15.5 % Platelet Count 597 H 130-400 K/uL Mean Platelet Volume 9.2 7.5-10.5 fL Immature Granulocyte % (Auto) 0.8 0-1 % Neutrophils (%) (Auto) 65.4 40.0-77.0 % Lymphocytes (%) (Auto) 25.4 21.0-51.0 % Monocytes (%) (Auto) 5.5 3.0-13.0 % Eosinophils (%) (Auto) 2.4 0.0-8.0 % Basophils (%) (Auto) 0.5 0.0-5.0 % Neutrophils # (Auto) 8.0 H 1.8-7.7 K/uL Lymphocytes # (Auto) 3.1 1.0-4.8 K/uL Monocytes # (Auto) 0.7 0.1-1.0 K/uL Eosinophils # (Auto) 0.29 0.00-0.70 K/uL Basophils # (Auto) 0.06 0.00-0.20 K/uL Absolute Immature Granulocyte (auto 0.10 0-1 K/uL Nucleated Red Blood Cells 0.0 0.0-0.19 % Sodium Level 136 136-145 mmol/L Potassium Level 3.9 3.5-5.1 mmol/L Chloride Level 104 101-111 mmol/L Carbon Dioxide Level 28 21-32 mmol/L Blood Urea Nitrogen 30 H 7-18 mg/dL Creatinine 1.2 0.5-1.3 mg/dL Glomerular Filtration Rate Calc 75 >90 mL/min Random Glucose 234 H 70-105 mg/dL Total Calcium 8.5 8.5-10.1 mg/dL Magnesium Level 1.60 L 1.80-2.40 mg/dL Total Bilirubin 0.2 0.2-1.0 mg/dL Aspartate Amino Transf (AST/SGOT) 20 10-37 U/L Alanine Aminotransferase (ALT/SGPT) 26 12-78 U/L Alkaline Phosphatase 195 H 50-136 U/L Total Protein 7.0 6.0-8.3 g/dL Albumin 1.4 L 3.5-5.0 g/dL ASSESSMENT: Scrotal wall abscess with cellulitis, status post I&D and debridement of the right scrotal abscess with a wound VAC application on 08/01/2024. Right epididymal orchitis Urinary tract infection with yeast species. Leukocytosis. Acute renal failure. Diabetes mellitus. PLAN: Continue on Meropenem. Continue on fluconazole. Continue on doxycycline. Wound care as recommended by Urology. Continue GI prophylaxis. Continue pain management. Continue monitoring glucose levels. Recommending for patient to go to LTAC for wound management and IV antibiotic therapy. This case was reviewed and discussed with my supervising physician and the above assessment and plan was formulated and agreed upon. ATTESTATION BY PHYSICIAN I have seen and examined the patient. I reviewed the documentation, medical decision making, and treatment plan as noted by the mid-level provider above. I agree with the findings and plan of care. GRANT SUMMERS MD, MIRTA L [facility] Aug 06, 2024 22:50
[2024-08-07] VITALS (8 sets, daily range): BP systolic 141–158; BP diastolic 72–90; PULSE 73–78; RESP 17–19; TEMP 97.8–98.7; O2SAT 96
[2024-08-07 06:55] LABS: BASOPHILS # (AUTO) 0.07 K/uL (0.00-0.20); BASOPHILS % (AUTO) 0.6 % (0.0-5.0); EOSINOPHILS # (AUTO) 0.32 K/uL (0.00-0.70); HEMATOCRIT 29.2 % (42-54); IMMATURE GRANULOCYTE ABSOLUTE 0.07 K/uL (0-1); LYMPHOCYTES # (AUTO) 3.1 K/uL (1.0-4.8); LYMPHOCYTES % (AUTO) 28.7 % (21.0-51.0); MEAN CORPUSCULAR HEMOGLOBIN 23.6 pg (27.0-33.0); MEAN CORPUSCULAR HGB CONC 30.5 g/dL (32.0-36.0); MEAN CORPUSCULAR VOLUME 77.5 fL (79-99); MONOCYTES # (AUTO) 0.6 K/uL (0.1-1.0); MONOCYTES % (AUTO) 5.4 % (3.0-13.0); NEUTROPHILS # (AUTO) 6.6 K/uL (1.8-7.7); NEUTROPHILS % (AUTO) 61.7 % (40.0-77.0); PLATELET COUNT (AUTO) 673 K/uL (130-400); RED BLOOD CELL COUNT(AUTO) 3.77 MIL/uL (4.50-6.20); RED CELL DISTRIBUTION WIDTH 15.2 % (11.0-15.5); WHITE BLOOD COUNT (AUTO) 10.8 K/uL (4.8-10.8)
[2024-08-07 07:04] LABS: ALBUMIN 1.4 g/dL (3.5-5.0); BILIRUBIN,TOTAL 0.2 mg/dL (0.2-1.0); CREATININE 1.4 mg/dL (0.5-1.3); MAGNESIUM 1.5 mg/dL (1.80-2.40); POTASSIUM 3.7 mmol/L (3.5-5.1)
[2024-08-07] MEDS ORDERED: MAGNESIUM 2GM PREMIX 50ML 50 ML IV SCH (12:00)
--- NOTE | 2024-08-07 12:17 | PN ---
INFECTIOUS DISEASE PROGRESS NOTE Date of Service: Aug 07, 2024 SUBJECTIVE: This is a 49-year-old male patient presented to the hospital with chief complaint of right testicle pain. A scrotal ultrasound done on admission showed mild right epididymal orchitis. Patient was seen and examined at bedside in room 317. Patient is awake, alert and oriented x3. Patient continues with wound VAC in place to scrotum. No fever, temperature is 97.9 and a slight improvement on the WBC to 10.8. Continues on fluconazole, doxycycline and Meropenem. Patient is pending placement. PHYSICAL EXAM EYES: Anicteric. Pupils equal and reactive. Right eye blindness. HENT: No oral thrush seen, moist Oral mucosa. NECK: Supple, no JVD or thyromegaly. LUNGS: Good air entry. No rales, no rhonchi. CARDIOVASCULAR: S1, S2 regular. No murmur heard. ABDOMEN: Soft, non tender, bowel sounds present, no organomegaly. CENTRAL NERVOUS SYSTEM: Awake, alert, oriented x 3. SKIN: No rashes, no swelling. LYMPHATICS: No peripheral lymphadenopathy. MUSCULOSKELETAL: No joint swelling, erythema or tenderness. EXTREMITIES: No cyanosis or clubbing. 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 BACK: No deformity, no pressure ulcer. GENITOURINARY: No dysuria or hematuria. Thomas catheter. SCROTUM: Right Scrotal abscess, status post I&D with wound VAC placement. Vital Sign (Last 12 Hours) 08/07/24 08/07/24 08/07/24 04:00 08:00 09:03 Temp 98.8 97.9 Pulse 78 77 Resp 18 19 B/P (MAP) 145/90 155/72 Pulse Ox 96 96 96 O2 Delivery Room Air Room Air Room Air* O2 Flow Rate 0 FiO2 21 21 Intake & Output (last 24hrs) 08/06/24 08/06/24 08/07/24 15:00 23:00 07:00 Intake Total 250.0 ml Output Total 1400 ml 3300 ml Balance -1400 ml -3050.0 ml LABS: Laboratory: Test 08/07/24 11:35 08/07/24 06:09 Range/Units Whole Blood Glucose 215 H 70-110 MG/DL White Blood Count 10.8 4.8-10.8 K/uL Red Blood Count 3.77 L 4.50-6.20 MIL/uL Hemoglobin 8.9 L 14.0-18.0 g/dL Hematocrit 29.2 L 42-54 % Mean Corpuscular Volume 77.5 L 79-99 fL Mean Corpuscular Hemoglobin 23.6 L 27.0-33.0 pg Mean Corpuscular Hemoglobin Concent 30.5 L 32.0-36.0 g/dL Red Cell Distribution Width 15.2 11.0-15.5 % Platelet Count 673 H 130-400 K/uL Mean Platelet Volume 9.4 7.5-10.5 fL Immature Granulocyte % (Auto) 0.6 0-1 % Neutrophils (%) (Auto) 61.7 40.0-77.0 % Lymphocytes (%) (Auto) 28.7 21.0-51.0 % Monocytes (%) (Auto) 5.4 3.0-13.0 % Eosinophils (%) (Auto) 3.0 0.0-8.0 % Basophils (%) (Auto) 0.6 0.0-5.0 % Neutrophils # (Auto) 6.6 1.8-7.7 K/uL Lymphocytes # (Auto) 3.1 1.0-4.8 K/uL Monocytes # (Auto) 0.6 0.1-1.0 K/uL Eosinophils # (Auto) 0.32 0.00-0.70 K/uL Basophils # (Auto) 0.07 0.00-0.20 K/uL Absolute Immature Granulocyte (auto 0.07 0-1 K/uL Nucleated Red Blood Cells 0.0 0.0-0.19 % Sodium Level 140 136-145 mmol/L Potassium Level 3.7 3.5-5.1 mmol/L Chloride Level 105 101-111 mmol/L Carbon Dioxide Level 27 21-32 mmol/L Blood Urea Nitrogen 37 H 7-18 mg/dL Creatinine 1.4 H 0.5-1.3 mg/dL Glomerular Filtration Rate Calc 62 >90 mL/min Random Glucose 198 H 70-105 mg/dL Total Calcium 8.5 8.5-10.1 mg/dL Phosphorus Level 4.3 2.5-4.9 mg/dL Magnesium Level 1.50 L 1.80-2.40 mg/dL Total Bilirubin 0.2 0.2-1.0 mg/dL Aspartate Amino Transf (AST/SGOT) 20 10-37 U/L Alanine Aminotransferase (ALT/SGPT) 27 12-78 U/L Alkaline Phosphatase 199 H 50-136 U/L Total Protein 7.0 6.0-8.3 g/dL Albumin 1.4 L 3.5-5.0 g/dL ASSESSMENT: Scrotal wall abscess with cellulitis, status post I&D and debridement of the right scrotal abscess with a wound VAC application on 08/01/2024. Right epididymal orchitis Urinary tract infection with yeast species. Leukocytosis. Acute renal failure. Diabetes mellitus. PLAN: Continue on Meropenem. Continue on fluconazole. Continue on doxycycline. Wound care as recommended by Urology. Continue GI prophylaxis. Continue pain management. Continue monitoring glucose levels. Recommending for patient to go to LTAC for wound management and IV antibiotic t herapy. Pending placement. This case was reviewed and discussed with my supervising physician and the above assessment and plan was formulated and agreed upon. ATTESTATION BY PHYSICIAN I have seen and examined the patient. I reviewed the documentation, medical decision making, and treatment plan as noted by the mid-level provider above. I agree with the findings and plan of care. GRANT SUMMERS MD, MIRTA L [facility] Aug 07, 2024 12:17
--- NOTE | 2024-08-07 12:42 | PN ---
[facility] PROGRESS NOTE Date of Service: Aug 07, 2024 Time of Service: 12:33 SUBJECTIVE: [ ] This is a 49-year-old that was admitted early this morning with chief complaints of testicular cellulitis. Patient is fully awake alert oriented x3 patient has a Thomas catheter secondary to urinary retention were being urology started patient on Flomax. Patient has no history of urinary retention. GEOVANNI on this admission senior application security consultant following. Patient has a history of nephrotic syndrome we will discontinue vancomycin and Zosyn. S/p I&D with debridement of right peroneal and ischial rectal abscess tracking into the scrotum by Dr. Choudhury on 08/01/2024 Today at bedside evaluation patient was found alert and oriented x3. No incidences reported overnight. Vital signs were stable. Leukocytosis has resolved, H&H is 8.9/29.2, platelets 673. Renal indices remain stable with latest at BUN 37, creatinine 1.4, magnesium is 1.5. Replacing. Continue IV doxycycline, fluconazole and at ID's direction. Continued care and wound VAC management by Dr. Darby. Case management coordinating for LTAC placement. REVIEW OF SYSTEMS CONSTITUTIONAL: Denies fevers, chills, or night sweats. No unintentional weight loss reported. NEUROLOGICAL: Denies headache, amaurosis fugax, motor weakness, sensory deficit, vertigo/spinning sensation, gait abnormalities, or tremors. 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 CARDIOVASCULAR: Denies any exertional angina, dyspnea on exertion, orthopnea, paroxysmal nocturnal dyspnea, palpitations, life-threatening arrhythmias, claudication. PULMONARY: Denies any shortness of breath, cough, phlegm/sputum, hemoptysis, pleuritic chest pain. SLEEP: Denies morning headaches, daytime somnolence or napping. Denies difficulty falling asleep, staying asleep, waking from sleep. Denies knowledge of snoring. GASTROINTESTINAL: Denies any type of dysphagia to either liquids or solids. Denies nausea, vomiting, pyrosis, early satiety, abdominal pain, diarrhea, constipation, or changes in stool consistency or caliber. Denies coffee-ground emesis, hematemesis, hematochezia, or melanotic stools. GENITOURINARY: Denies frequency, urgency, nocturia, hematuria or incontinence (Storage/Irritative symptoms.) Low urinary stream, straining to void, urinary intermittency or hesitancy, splitting of the voiding stream, terminal dribbling. ENDOCRINOLOGIC: Denies polyuria, polydipsia, polyphagia or heat/cold intolerances. HEMATOLOGIC: Denies thrombophilia/previous clots, or coagulopathy/bleeding disorders. ONCOLOGIC: Denies personal history of malignancy. DERMATOLOGIC: Denies rashes or pruritus. PSYCHIATRIC: Denies any suicidal or homicidal ideation. Denies hallucinations. PHYSICAL EXAM GENERAL APPEARANCE: The patient is awake, alert, and oriented, in no acute cardiopulmonary distress. NEUROLOGICAL: Cranial nerves II-XII grossly intact. Motor is 5/5 in bilateral upper and lower extremities proximal to distal. No sensory deficits. HEENT: Face is symmetric. Pupils are equal and reactive. Extraocular movements are intact. NECK: Supple. No JVD. No thyromegaly. No submental, submandibular, pre- /postauricular, occipital or supraclavicular lymphadenopathy. CHEST: Normal chest expansion. No Telemetry. LUNGS: Absence of any rales, rhonchi or any wheezing. CARDIOVASCULAR: Regular. S1 and S2 normal. No appreciable rubs, murmurs or gallops. ABDOMEN: Soft, nontender, and nondistended. There is no rebound, voluntary guarding, or rigidity. : Deferred. No Thomas. EXTREMITIES: Non-edematous and not cyanotic. No clubbing. Good capillary refill. SKIN: Swollen testicles Vital Signs (last 8hr) Date Time Temp Pulse Resp B/P (MAP) Pulse Ox O2 Delivery O2 Flow Rate FiO2 08/07/24 09:03 96 Room Air* 0 21 08/07/24 08:00 97.9 77 19 155/72 96 Room Air LABS: Laboratory: Test 08/07/24 11:35 08/07/24 06:09 Range/Units Whole Blood Glucose 215 H 70-110 MG/DL White Blood Count 10.8 4.8-10.8 K/uL Red Blood Count 3.77 L 4.50-6.20 MIL/uL Hemoglobin 8.9 L 14.0-18.0 g/dL Hematocrit 29.2 L 42-54 % Mean Corpuscular Volume 77.5 L 79-99 fL Mean Corpuscular Hemoglobin 23.6 L 27.0-33.0 pg Mean Corpuscular Hemoglobin Concent 30.5 L 32.0-36.0 g/dL Red Cell Distribution Width 15.2 11.0-15.5 % Platelet Count 673 H 130-400 K/uL Mean Platelet Volume 9.4 7.5-10.5 fL Immature Granulocyte % (Auto) 0.6 0-1 % Neutrophils (%) (Auto) 61.7 40.0-77.0 % Lymphocytes (%) (Auto) 28.7 21.0-51.0 % Monocytes (%) (Auto) 5.4 3.0-13.0 % Eosinophils (%) (Auto) 3.0 0.0-8.0 % Basophils (%) (Auto) 0.6 0.0-5.0 % Neutrophils # (Auto) 6.6 1.8-7.7 K/uL Lymphocytes # (Auto) 3.1 1.0-4.8 K/uL Monocytes # (Auto) 0.6 0.1-1.0 K/uL Eosinophils # (Auto) 0.32 0.00-0.70 K/uL Basophils # (Auto) 0.07 0.00-0.20 K/uL Absolute Immature Granulocyte (auto 0.07 0-1 K/uL Nucleated Red Blood Cells 0.0 0.0-0.19 % Sodium Level 140 136-145 mmol/L Potassium Level 3.7 3.5-5.1 mmol/L Chloride Level 105 101-111 mmol/L Carbon Dioxide Level 27 21-32 mmol/L Blood Urea Nitrogen 37 H 7-18 mg/dL Creatinine 1.4 H 0.5-1.3 mg/dL Glomerular Filtration Rate Calc 62 >90 mL/min Random Glucose 198 H 70-105 mg/dL Total Calcium 8.5 8.5-10.1 mg/dL Phosphorus Level 4.3 2.5-4.9 mg/dL Magnesium Level 1.50 L 1.80-2.40 mg/dL Total Bilirubin 0.2 0.2-1.0 mg/dL Aspartate Amino Transf (AST/SGOT) 20 10-37 U/L Alanine Aminotransferase (ALT/SGPT) 27 12-78 U/L Alkaline Phosphatase 199 H 50-136 U/L Total Protein 7.0 6.0-8.3 g/dL Albumin 1.4 L 3.5-5.0 g/dL Current Medications Medications (Trade) Dose Ordered Sig/Gaby Route PRN Reason Start Time Stop Time Status Last Admin Dose Admin Acetaminophen (TYLenol 325MG TAB) 650 mg Q4H PRN PO MILD PAIN (1-3) 07/27/24 02:30 08/26/24 02:29 Acetaminophen (TYLenol 325MG TAB) 650 mg Q6H PRN PO TEMPERATURE GREATER THAN 101.5 07/27/24 02:30 08/26/24 02:29 07/29/24 17:35 650 MG Acetaminophen/ Hydrocodone Bitart (NORco 5/325MG) 1 tab ONCE PO 08/06/24 21:00 08/07/24 06:00 DC 08/06/24 21:57 1 TAB Acetaminophen/ Hydrocodone Bitart (NORco 5/325MG) 1 tab Q6H PRN PO MODERATE PAIN (4-6) 07/27/24 02:30 08/01/24 02:29 DC 07/30/24 15:08 1 TAB Aspirin (Aspirin 81mg Chew Tab) 81 mg AM PO 07/30/24 09:00 08/29/24 08:59 08/07/24 09:03 81 MG Atorvastatin Calcium (LIPItor 40MG) 40 mg HS PO 07/29/24 21:00 08/28/24 20:59 08/06/24 21:56 40 MG Ceftriaxone Sodium (ROCEphine 1G INJ) 1 gm Q24H IVPB 07/27/24 14:30 07/29/24 21:33 DC 07/28/24 14:22 1 GM Ceftriaxone Sodium (ROCEphine 1G INJ) 1 gm Q24H IVPB 07/29/24 22:00 08/01/24 15:41 DC 07/31/24 22:31 1 GM Clotrimazole (Lotrimin) 1 APPL TP BID BID TP 07/29/24 21:00 08/28/24 20:59 08/07/24 09:04 1 GM Dextrose (D50w) 50 ml AD PRN IV HYPOGLYCEMIA PROTOCOL 07/27/24 04:00 08/26/24 03:59 Docusate Sodium (COLace 100MG CAP) 100 mg BID PO 08/03/24 21:00 09/02/24 20:59 08/07/24 09:03 100 MG Doxycycline Hyclate 250 ml @ 125 mls/hr Q12H IV 07/27/24 16:00 07/29/24 21:35 DC 07/29/24 03:37 125 MLS/HR Doxycycline Hyclate 250 ml @ 125 mls/hr Q12H IV 07/29/24 23:59 08/01/24 22:57 DC 08/01/24 15:54 125 MLS/HR Doxycycline Hyclate 250 ml @ 125 mls/hr Q12H IV 08/02/24 04:00 08/12/24 03:59 08/07/24 03:40 125 MLS/HR Famotidine (Pepcid 20mg Tab) 20 mg Q48H PO 07/27/24 02:30 08/26/24 02:29 08/06/24 02:55 20 MG Ferrous Sulfate (Ferrous Sulfate) 325 mg DAILY PO 07/30/24 09:00 08/29/24 08:59 08/07/24 09:04 325 MG Fluconazole (DiFLUCan 100 mg TAB) 100 mg DAILY PO 08/02/24 11:00 08/04/24 12:53 DC 08/04/24 09:22 100 MG Fluconazole/ Sodium Chloride 100 ml @ 100 mls/hr Q24H IV 08/04/24 13:00 09/03/24 12:59 08/06/24 12:38 100 MLS/HR Gabapentin (NEURontin 100 mg CAP) 100 mg BID PO 07/29/24 21:00 08/28/24 20:59 08/07/24 09:04 100 MG Glucagon (Glucagon 1mg Kit) 1 mg AD PRN IM HYPOGLYCEMIA PROTOCOL 07/27/24 04:00 08/26/24 03:59 Home Med (Home Medication) DAPAGLIFLOZIN 5MG TAB DAILY PO 07/30/24 09:00 08/29/24 08:59 08/07/24 09:04 1 EACH Hydromorphone HCl (DiLAUDid 0.5MG INJ) 0.5 mg Q3H PRN IVP SEVERE PAIN (7-10) 08/07/24 12:30 08/12/24 12:29 Hydromorphone HCl (DiLAUDid 0.5MG INJ) 0.5 mg Q3H PRN IVP SEVERE PAIN (7-10) 08/01/24 19:30 08/06/24 19:29 DC 08/06/24 18:04 0.5 MG Hydromorphone HCl (DiLAUDid 0.5MG INJ) 0.5 mg Q3H3 PRN IVP SEVERE PAIN (7-10) 07/27/24 13:30 08/01/24 13:29 DC 07/31/24 05:57 0.5 MG Hydromorphone HCl (DiLAUDid 1MG INJ) 1 mg ONCE STAT IVP 08/03/24 12:49 08/03/24 13:11 DC 08/03/24 13:21 1 MG Insulin Glargine (LANtus 100 UNITS/ML 10 ML VIAL) 12 units HS SQ 07/30/24 21:00 08/29/24 20:59 08/06/24 22:34 12 UNITS Insulin Human Regular (humuLIN R 100 UNIT/ML 3ML) 5 unit TIDAC SQ 08/03/24 11:30 09/02/24 11:29 08/07/24 06:42 5 UNIT Insulin Human Regular (humuLIN R 100 UNIT/ML 3ML) INSULIN SLIDING SCAL... ACHS SQ 07/27/24 07:30 08/26/24 07:29 08/07/24 06:41 2 UNIT Lactulose (Constulose 20gm/ 30ml Udcup) 20 gm BID PRN PO CONSTIPATION 07/30/24 08:30 08/29/24 08:29 08/05/24 12:20 20 GM Magnesium Sulfate 50 ml @ 0 mls/hr PROTOCOL IV 07/27/24 10:00 07/27/24 13:42 DC Magnesium Sulfate 50 ml @ 0 mls/hr PROTOCOL IV 07/27/24 14:00 07/30/24 08:49 DC 07/30/24 06:27 25 MLS/HR Magnesium Sulfate 50 ml @ 0 mls/hr PROTOCOL IV 08/07/24 12:00 08/07/24 12:02 DC Magnesium Sulfate 50 ml @ 0 mls/hr PROTOCOL IV 07/30/24 09:00 08/29/24 08:59 08/07/24 09:07 12.5 MLS/HR Magnesium Sulfate 50 ml @ 0 mls/hr PROTOCOL IV 08/03/24 09:30 08/03/24 09:18 DC Magnesium Sulfate 50 ml @ 0 mls/hr PROTOCOL PRN IV OTHER [SEE ORDER COMMENTS] 07/27/24 04:00 07/27/24 13:42 DC 07/27/24 07:59 12.5 MLS/HR Meropenem (Merrem 1gm) 1 gm Q12H IVPB 07/31/24 15:30 08/10/24 15:29 08/07/24 05:41 1 GM Ondansetron HCl (zoFRAN 4MG INJ) 4 mg Q6H PRN IV NAUSEA/VOMITING 07/27/24 02:30 08/26/24 02:29 Piperacillin Sod/ Tazobactam Sod 50 ml @ 12.5 mls/hr Q8H IV 07/27/24 05:00 07/27/24 14:15 DC 07/27/24 12:14 12.5 MLS/HR Potassium Chloride 100 ml @ 100 mls/hr AD PRN IV POTASSIUM PROTOCOL 07/27/24 04:00 08/26/24 03:59 Potassium Chloride (K-Dur 10meq Sr Tab) 10 meq AD PRN PO POTASSIUM PROTOCOL 07/30/24 06:30 08/26/24 03:59 08/07/24 09:04 10 MEQ Potassium Chloride (K-Dur/Klor-Con 20meq) 10 meq AD PRN PO POTASSIUM PROTOCOL 07/27/24 04:00 07/30/24 06:22 DC 07/29/24 08:07 10 MEQ Potassium Chloride (KCl 10% Elixir 20meq/15ml) 10 meq AD PRN PO POTASSIUM PROTOCOL 07/27/24 04:00 08/26/24 03:59 Sodium Bicarbonate (Sodium Bicarbonate) 650 mg TID PRN PO INDIGESTION 07/27/24 12:00 08/26/24 11:59 Sodium Chloride 1,000 ml @ 0 mls/hr Q0M IV 08/01/24 12:00 08/31/24 11:59 Sodium Chloride 1,000 ml @ 100 mls/hr Q10H IV 07/27/24 03:30 07/30/24 15:05 DC 07/30/24 12:31 100 MLS/HR Tamsulosin HCl (FloMAX) 0.4 mg DAILY PO 07/28/24 09:00 08/27/24 08:59 08/07/24 09:03 0.4 MG Vancomycin HCl 250 ml @ 125 mls/hr ONCE IV 07/27/24 02:30 07/27/24 02:32 DC Vancomycin HCl 250 ml @ 125 mls/hr Q24H IV 07/28/24 01:00 07/27/24 14:15 DC Vancomycin HCl (Vancomycin Protocol) 1 each AD IV 07/27/24 00:00 07/27/24 14:21 DC Vitamin B Complex/ Vit C/Folic Acid (Nephrovite Tablet) 1 cap DAILY PO 07/28/24 09:00 08/27/24 08:59 08/07/24 09:03 1 CAP DIAGNOSTICS / RADIOLOGY: [ ] ASSESSMENT: Suspecting sepsis secondary right scrotal wall abscess, POA Right Epididymal orchitis, left side with abscess, POA 08/01/24 s/p I/D Right ischiorectal/perineal abscess tracking to the right hemiscrotum, 16 x 12 x 10 cm. with Wound vac Right testicular cellulitis POA Leukocytosis secondary above, POA improved Urinary retention requiring Thomas catheter POA Acute kidney injury with CKD POA improving Hypertension POA Microcytic hypochromic anemia iron deficiency POA Acute thrombocytosis POA Uncontrolled diabetes POA Hyperlipidemia POA Morbid Obesity POA Coronary artery disease POA Severe Protein calorie Malnutrition, POA PAD with hx of AKA to the left side Obesity Hypoventilation Syndrome Metabolic acidosis, POA improved electrolytes derangement: hypomagnesemia History Nephrotic syndrome functional decline POA Hallucination not present POA Uncontrolled type II diabetes with hyperglycemia PLAN: Continue admission in the medical floor condition: Guarded IVF: heplock Consultants senior application security consultant's, Infectious Disease, Urology and psychiatry Continue IV Merrem , doxycycline, fluconazole Dr. Hernandes for antimicrobial stewardship. Procedure I and D of scrotal mass with wound VAC tolerating wound VAC. Continue with local wound care wound VAC. We will be changed on Tuesday, following Dr. Darby recommendations Labs cbc, cmp, mag+ Inflammatory markers every other day Continue glucometer checks before meals and at bedtime Continue sliding scale started premeal5 units of regular and currently on long- units Lantus b.i.d. Continue hypoglycemic protocol Avoid NSAIDs strict I&O we will monitor renal function we will follow senior application security consultant's recommendations Thomas care Replace electrolytes as needed as per protocol to keep potassium above 4.0 magnesium 2.0. We will monitor H&H trend to keep hemoglobin above 7.0 vitamin B complex vitamin C folic acid one tablet daily. bowel regiment: lactulose 20 gm PO BID PRN constipation Pain management: Gabapentin 100 t.i.d.. Greene 5/325 p.o. as needed for pain. Continue to work with physical therapy Monitor a.m. labs PRN Treatment - Add when necessary meds for nausea, vomiting, pain, constipation, insomnia. DVT/GI prophylaxis- Continue SCDs and famotidine at current doses. Full CODE STATUS Case management coordinating for LTAC placement This document was generated in part using voice recognition software, occasional wrong word or sound alike substitutions may have occurred due to the inherent limitations of voice recognition software. Read the chart carefully and recognize using context, where the substitutions have occurred. Although every effort was made to edit the content, mill order scheduler and typing errors may occur HELEN MEADP Aug 07, 2024 12:42
[2024-08-07] MEDS: hydroMORPHone 0.5 MG SYG (0.5MG/0.5ML) IVP PRN (12:46)
--- NOTE | 2024-08-07 15:35 | PN ---
NEPHROLOGY PROGRESS NOTE Date/Time Patient Seen: Aug 07, 2024 Reason for Consultation: 15:35 SUBJECTIVE: This is a 49-year-old male with a past medical history of diabetes mellitus type 2, hypertension, peripheral arterial disease with left AKA, coronary artery disease, hyperlipidemia, GERD, PAD, and obesity Patient presented to the emergency room for testicular pain and swelling Thomas in place due to urinary retention, he was seen by Urology Blood cultures has been negative Continues on antibiotics as per ID Nurse reports guarded abscess ruptured and wound cultures were sent, pending results Were consulted for renal failure. Renal function and electrolytes are stable. S/p Incision and drainage with debridement of right perineal and ischiorectal abscess tracking into the scrotum on 08/01/[address] Choudhury Wound Vac in place UA positive for proteinuria. Case management coordinating LTAC placement Patient was seen in the medical floor, in no acute distress REVIEW OF SYSTEMS: GENERAL: Positive for testicular pain and swelling NEUROLOGIC: Negative for any blurry vision, blind spots, double vision, facial asymmetry, dysphagia, dysarthria, hemiparesis, hemisensory deficits, vertigo, ataxia. HEENT: Negative for any head trauma, neck trauma, neck stiffness, photophobia, phonophobia, sinusitis, rhinitis. CARDIAC: Negative for any chest pain, dyspnea on exertion, paroxysmal nocturnal dyspnea, peripheral edema. PULMONARY: Negative for any shortness of breath, wheezing, COPD, or TB exposure. GASTROINTESTINAL: Negative for any abdominal pain, nausea, vomiting, bright red blood per rectum, melena. GENITOURINARY: Negative for any dysuria, hematuria, incontinence. INTEGUMENTARY: Negative for any rashes, cuts, insect bites. RHEUMATOLOGIC: Negative for any joint pains, photosensitive rashes, history of vasculitis or kidney problems. HEMATOLOGIC: Negative for any abnormal bruising, frequent infections or bleeding. PHYSICAL EXAM: GENERAL: Alert and oriented x 3. No acute distress. Well-nourished. EYES: EOMI. Anicteric. HENT: Moist mucous membranes. No scleral icterus. No cervical lymphadenopathy. LUNGS: Clear to auscultation bilaterally. No accessory muscle use. CARDIOVASCULAR: Regular rate and rhythm. No murmur. No JVD. ABDOMEN: Soft, non-tender and non-distended. No palpable masses. EXTREMITIES: 2+ edema. Non-tender. SKIN: No rashes or lesions. Warm. NEUROLOGIC: No focal neurological deficits. CN II-XII grossly intact, but not individually tested. PSYCHIATRIC: Cooperative. Appropriate mood and affect. LABORATORY: [ ] Hematology Labs: Test 08/07/24 06:09 Range/Units White Blood Count 10.8 4.8-10.8 K/uL Red Blood Count 3.77 L 4.50-6.20 MIL/uL Hemoglobin 8.9 L 14.0-18.0 g/dL Hematocrit 29.2 L 42-54 % Mean Corpuscular Volume 77.5 L 79-99 fL Mean Corpuscular Hemoglobin 23.6 L 27.0-33.0 pg Mean Corpuscular Hemoglobin Concent 30.5 L 32.0-36.0 g/dL Red Cell Distribution Width 15.2 11.0-15.5 % Platelet Count 673 H 130-400 K/uL Mean Platelet Volume 9.4 7.5-10.5 fL Immature Granulocyte % (Auto) 0.6 0-1 % Neutrophils (%) (Auto) 61.7 40.0-77.0 % Lymphocytes (%) (Auto) 28.7 21.0-51.0 % Monocytes (%) (Auto) 5.4 3.0-13.0 % Eosinophils (%) (Auto) 3.0 0.0-8.0 % Basophils (%) (Auto) 0.6 0.0-5.0 % Neutrophils # (Auto) 6.6 1.8-7.7 K/uL Lymphocytes # (Auto) 3.1 1.0-4.8 K/uL Monocytes # (Auto) 0.6 0.1-1.0 K/uL Eosinophils # (Auto) 0.32 0.00-0.70 K/uL Basophils # (Auto) 0.07 0.00-0.20 K/uL Absolute Immature Granulocyte (auto 0.07 0-1 K/uL Nucleated Red Blood Cells 0.0 0.0-0.19 % Chemistry Labs: Test 08/07/24 11:35 08/07/24 06:09 Range/Units Whole Blood Glucose 215 H 70-110 MG/DL Sodium Level 140 136-145 mmol/L Potassium Level 3.7 3.5-5.1 mmol/L Chloride Level 105 101-111 mmol/L Carbon Dioxide Level 27 21-32 mmol/L Blood Urea Nitrogen 37 H 7-18 mg/dL Creatinine 1.4 H 0.5-1.3 mg/dL Glomerular Filtration Rate Calc 62 >90 mL/min Random Glucose 198 H 70-105 mg/dL Total Calcium 8.5 8.5-10.1 mg/dL Phosphorus Level 4.3 2.5-4.9 mg/dL Magnesium Level 1.50 L 1.80-2.40 mg/dL Total Bilirubin 0.2 0.2-1.0 mg/dL Aspartate Amino Transf (AST/SGOT) 20 10-37 U/L Alanine Aminotransferase (ALT/SGPT) 27 12-78 U/L Alkaline Phosphatase 199 H 50-136 U/L Total Protein 7.0 6.0-8.3 g/dL Albumin 1.4 L 3.5-5.0 g/dL Diagnostic REASON: RIGHT ARM PAIN ORDERING PHYSICIAN: RICHAR JOSEPH NP PROCEDURE: VENOUS UNI - US VENOUS DOPPLER UNILATERAL US VENOUS DOPPLER UNILATERAL HISTORY: Right arm pain COMPARISON: None TECHNIQUE: Right upper extremity venous Doppler ultrasound study was performed. FINDINGS: The right subclavian, axillary, and brachial veins are visualized. Normal flow with augmentation and compressibilities are demonstrated. Right cephalic vein is patent. Noncompressible thrombus is seen in the right basilic vein consistent with superficial thrombophlebitis. IMPRESSION: 1. No evidence of deep venous thrombosis is seen. Noncompressible thrombus is seen in the right basilic vein consistent with superficial thrombophlebitis. REASON: repeat to compared from admssion swollen ORDERING PHYSICIAN: RICHAR JOSEPH NP PROCEDURE: SCROTUM - US SCROTUM & CONTENTS US SCROTUM & CONTENTS HISTORY: Follow-up scrotal abscess COMPARISON: None TECHNIQUE: Duplex scrotal ultrasound study was performed. FINDINGS: The right testes measures 3.8 x 2 x 1.6 cm. The left testes measures 2.3 x 2.1 cm. Normal flow is seen of left testes and bilateral epididymides. Mild increased flow is seen of the right testes suggested of right orchitis. There is right scrotal abscess measuring 7.9 x 3.6 x 5 cm with adjacent wall thickening. Normal flow is demonstrated in the testes and epididymides bilaterally. No hydroceles or varicocele is seen. IMPRESSION: 1. Mild increased flow is seen of the right testes suggested of right orchitis. There is right scrotal abscess measuring 7.9 x 3.6 x 5 cm with adjacent wall thickening. DICTATED BY: BRIAN LUBIN MD DATE: 07/30/24 1131 DICTATED BY: BRIAN LUBIN MD DATE: 08/02/24 1544 REASON: testicular pain and swelling ORDERING PHYSICIAN: JACQUELYN GIBBS PROCEDURE: SCROTUM - US SCROTUM & CONTENTS US SCROTUM & CONTENTS HISTORY: Testicular pain COMPARISON: None TECHNIQUE: Duplex scrotal ultrasound study was performed. FINDINGS: The right testes measures 3.6 x 1.4 x 2.7 cm. The left testes measures 3.5 x 1.6 x 2 cm. No evidence of intratesticular mass or abnormal calcification is seen. Normal flow is demonstrated in the left testes and left epididymis. There is left epididymal cyst measuring 3 mm. Hypoechoic focus is seen in the epididymal head with adjacent vascularity measuring 4.3 x 1.9 x 3.8 cm at the inferior aspect of the left testes. Slight increased flow is seen of the right testes and right epididymis suspicious for right epididymal orchitis. No hydroceles or varicocele is seen. IMPRESSION: 1. Findings may be related to mild right epididymal orchitis. DICTATED BY: BRIAN LUBIN MD DATE: 07/27/24 0902 ASSESSMENT: Acute on chronic renal failure Nephrotic syndrome Anemia Metabolic acidosis Right testicular clear cellulitis Urinary retention S/p Thomas catheter Electrolyte derangement Coronary artery disease Uncontrolled Diabetes mellitus type 2 Hyperlipidemia PAD S/p left AKA Severe protein calorie malnutrition Obesity PLAN: Labs, diagnostic, radiologic exams reviewed and interpreted by myself and supervising physician. We have reviewed external records in detail Case management coordinating LTAC placement. Require close monitoring of renal function and electrolytes Order CBC, CMP, and electrolytes in am Continue with antibiotics Renal diabetic diet BiPAP as necessary, for respiratory distress Monitor blood pressure adjust medication doses as needed Avoid hypotensive episodes May use Dilaudid 0.5 mg IV every 6 hours as needed for severe pain Monitor blood sugars Strict intake, output, and daily weight should be monitored Please renally adjust medications Avoid nephrotoxic and nonsteroidal drugs Avoid contrast if possible Will continue to monitor renal function, anemia, electrolytes Treatment plan discussed with patient Questions were answered We have discussed with the other team physicians in detail about the care plan We will continue to monitor the patient closely ATTESTATION BY PHYSICIAN I have seen and examined the patient. I reviewed the documentation, medical decision making, and treatment plan as noted by the mid-level provider above. I agree with the findings and plan of care. KRUPA MANDEL MD, [facility] Aug 07, 2024 15:35
[2024-08-08] VITALS (7 sets, daily range): BP systolic 134–155; BP diastolic 68–90; PULSE 71–82; RESP 17–18; TEMP 97.1–98.7; O2SAT 95–96
[2024-08-08 06:10] LABS: BASOPHILS % (AUTO) 0.8 % (0.0-5.0); EOSINOPHILS # (AUTO) 0.32 K/uL (0.00-0.70); EOSINOPHILS % (AUTO) 2.6 % (0.0-8.0); HEMATOCRIT 30.6 % (42-54); IMMATURE GRANULOCYTE ABSOLUTE 0.07 K/uL (0-1); MEAN CORPUSCULAR HEMOGLOBIN 23.9 pg (27.0-33.0); MEAN CORPUSCULAR HGB CONC 30.7 g/dL (32.0-36.0); MEAN CORPUSCULAR VOLUME 77.9 fL (79-99); MONOCYTES # (AUTO) 0.7 K/uL (0.1-1.0); MONOCYTES % (AUTO) 5.5 % (3.0-13.0); NEUTROPHILS # (AUTO) 7.3 K/uL (1.8-7.7); NEUTROPHILS % (AUTO) 58.5 % (40.0-77.0); RED BLOOD CELL COUNT(AUTO) 3.93 MIL/uL (4.50-6.20); WHITE BLOOD COUNT (AUTO) 12.4 K/uL (4.8-10.8)
[2024-08-08 06:21] LABS: CREATININE 1.4 mg/dL (0.5-1.3); POTASSIUM 3.8 mmol/L (3.5-5.1)
[2024-08-08 06:22] LABS: PLATELET COUNT (AUTO) 707 K/uL (130-400)
--- NOTE | 2024-08-08 08:32 | PN ---
[facility] PROGRESS NOTE Date of Service: Aug 08, 2024 Time of Service: 08:31 SUBJECTIVE: [ ] This is a 49-year-old that was admitted early this morning with chief complaints of testicular cellulitis. Patient is fully awake alert oriented x3 patient has a Thomas catheter secondary to urinary retention were being urology started patient on Flomax. Patient has no history of urinary retention. GEOVANNI on this admission budget specialist following. Patient has a history of nephrotic syndrome we will discontinue vancomycin and Zosyn. S/p I&D with debridement of right peroneal and ischial rectal abscess tracking into the scrotum by Dr. Choudhury on 08/01/2024 08/08/2024. Patient is alert and oriented x3. Latest vitals are stable, white count is slightly elevated at 12.4, H&H 9.4/30.6, platelets 707. Continue to monitor renal indices, latest BUN is 27, creatinine 1.4 otherwise BMP is stable. Continue wound VAC management and wound care at Dr. Darby's direction. Continue IV doxycycline, Merrem and fluconazole at ID's direction. Case management coordinating for LTAC placement. Completing three nights on telemetry monitoring tonight. Planning to discharge tomorrow to LTAC REVIEW OF SYSTEMS CONSTITUTIONAL: Denies fevers, chills, or night sweats. No unintentional weight loss reported. NEUROLOGICAL: Denies headache, amaurosis fugax, motor weakness, sensory deficit, vertigo/spinning sensation, gait abnormalities, or tremors. 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 CARDIOVASCULAR: Denies any exertional angina, dyspnea on exertion, orthopnea, paroxysmal nocturnal dyspnea, palpitations, life-threatening arrhythmias, claudication. PULMONARY: Denies any shortness of breath, cough, phlegm/sputum, hemoptysis, pleuritic chest pain. SLEEP: Denies morning headaches, daytime somnolence or napping. Denies difficulty falling asleep, staying asleep, waking from sleep. Denies knowledge of snoring. GASTROINTESTINAL: Denies any type of dysphagia to either liquids or solids. Denies nausea, vomiting, pyrosis, early satiety, abdominal pain, diarrhea, constipation, or changes in stool consistency or caliber. Denies coffee-ground emesis, hematemesis, hematochezia, or melanotic stools. GENITOURINARY: Denies frequency, urgency, nocturia, hematuria or incontinence (Storage/Irritative symptoms.) Low urinary stream, straining to void, urinary intermittency or hesitancy, splitting of the voiding stream, terminal dribbling. ENDOCRINOLOGIC: Denies polyuria, polydipsia, polyphagia or heat/cold intolerances. HEMATOLOGIC: Denies thrombophilia/previous clots, or coagulopathy/bleeding disorders. ONCOLOGIC: Denies personal history of malignancy. DERMATOLOGIC: Denies rashes or pruritus. PSYCHIATRIC: Denies any suicidal or homicidal ideation. Denies hallucinations. PHYSICAL EXAM GENERAL APPEARANCE: The patient is awake, alert, and oriented, in no acute cardiopulmonary distress. NEUROLOGICAL: Cranial nerves II-XII grossly intact. Motor is 5/5 in bilateral upper and lower extremities proximal to distal. No sensory deficits. HEENT: Face is symmetric. Pupils are equal and reactive. Extraocular movements are intact. NECK: Supple. No JVD. No thyromegaly. No submental, submandibular, pre- /postauricular, occipital or supraclavicular lymphadenopathy. CHEST: Normal chest expansion. No Telemetry. LUNGS: Absence of any rales, rhonchi or any wheezing. CARDIOVASCULAR: Regular. S1 and S2 normal. No appreciable rubs, murmurs or gallops. ABDOMEN: Soft, nontender, and nondistended. There is no rebound, voluntary guarding, or rigidity. : Deferred. No Thomas. EXTREMITIES: Non-edematous and not cyanotic. No clubbing. Good capillary refill. SKIN: Swollen testicles Vital Signs (last 8hr) Date Time Temp Pulse Resp B/P (MAP) Pulse Ox O2 Delivery O2 Flow Rate FiO2 08/08/24 04:00 98.8 71 17 151/79 97 Room Air 21 LABS: Laboratory: Test 08/08/24 05:21 08/08/24 04:53 08/07/24 06:09 Range/Units Whole Blood Glucose 169 H 70-110 MG/DL White Blood Count 12.4 H 4.8-10.8 K/uL Red Blood Count 3.93 L 4.50-6.20 MIL/uL Hemoglobin 9.4 L 14.0-18.0 g/dL Hematocrit 30.6 L 42-54 % Mean Corpuscular Volume 77.9 L 79-99 fL Mean Corpuscular Hemoglobin 23.9 L 27.0-33.0 pg Mean Corpuscular Hemoglobin Concent 30.7 L 32.0-36.0 g/dL Red Cell Distribution Width 15.0 11.0-15.5 % Platelet Count 707 H 130-400 K/uL Mean Platelet Volume 9.4 7.5-10.5 fL Immature Granulocyte % (Auto) 0.6 0-1 % Neutrophils (%) (Auto) 58.5 40.0-77.0 % Lymphocytes (%) (Auto) 32.0 21.0-51.0 % Monocytes (%) (Auto) 5.5 3.0-13.0 % Eosinophils (%) (Auto) 2.6 0.0-8.0 % Basophils (%) (Auto) 0.8 0.0-5.0 % Neutrophils # (Auto) 7.3 1.8-7.7 K/uL Lymphocytes # (Auto) 4.0 1.0-4.8 K/uL Monocytes # (Auto) 0.7 0.1-1.0 K/uL Eosinophils # (Auto) 0.32 0.00-0.70 K/uL Basophils # (Auto) 0.10 0.00-0.20 K/uL Absolute Immature Granulocyte (auto 0.07 0-1 K/uL Nucleated Red Blood Cells 0.0 0.0-0.19 % Platelet Morphology Comment See comments Sodium Level 139 136-145 mmol/L Potassium Level 3.8 3.5-5.1 mmol/L Chloride Level 104 101-111 mmol/L Carbon Dioxide Level 25 21-32 mmol/L Blood Urea Nitrogen 47 H 7-18 mg/dL Creatinine 1.4 H 0.5-1.3 mg/dL Glomerular Filtration Rate Calc 62 >90 mL/min Random Glucose 186 H 70-105 mg/dL Total Calcium 8.8 8.5-10.1 mg/dL Phosphorus Level 4.3 2.5-4.9 mg/dL Magnesium Level 1.50 L 1.80-2.40 mg/dL Total Bilirubin 0.2 0.2-1.0 mg/dL Aspartate Amino Transf (AST/SGOT) 20 10-37 U/L Alanine Aminotransferase (ALT/SGPT) 27 12-78 U/L Alkaline Phosphatase 199 H 50-136 U/L Total Protein 7.0 6.0-8.3 g/dL Albumin 1.4 L 3.5-5.0 g/dL Current Medications Medications (Trade) Dose Ordered Sig/Gaby Route PRN Reason Start Time Stop Time Status Last Admin Dose Admin Acetaminophen (TYLenol 325MG TAB) 650 mg Q4H PRN PO MILD PAIN (1-3) 07/27/24 02:30 08/26/24 02:29 Acetaminophen (TYLenol 325MG TAB) 650 mg Q6H PRN PO TEMPERATURE GREATER THAN 101.5 07/27/24 02:30 08/26/24 02:29 07/29/24 17:35 650 MG Acetaminophen/ Hydrocodone Bitart (NORco 5/325MG) 1 tab ONCE PO 08/06/24 21:00 08/07/24 06:00 DC 08/06/24 21:57 1 TAB Acetaminophen/ Hydrocodone Bitart (NORco 5/325MG) 1 tab Q6H PRN PO MODERATE PAIN (4-6) 07/27/24 02:30 08/01/24 02:29 DC 07/30/24 15:08 1 TAB Aspirin (Aspirin 81mg Chew Tab) 81 mg AM PO 07/30/24 09:00 08/29/24 08:59 08/07/24 09:03 81 MG Atorvastatin Calcium (LIPItor 40MG) 40 mg HS PO 07/29/24 21:00 08/28/24 20:59 08/07/24 20:24 40 MG Ceftriaxone Sodium (ROCEphine 1G INJ) 1 gm Q24H IVPB 07/27/24 14:30 07/29/24 21:33 DC 07/28/24 14:22 1 GM Ceftriaxone Sodium (ROCEphine 1G INJ) 1 gm Q24H IVPB 07/29/24 22:00 08/01/24 15:41 DC 07/31/24 22:31 1 GM Clotrimazole (Lotrimin) 1 APPL TP BID BID TP 07/29/24 21:00 08/28/24 20:59 08/07/24 20:38 1 GM Dextrose (D50w) 50 ml AD PRN IV HYPOGLYCEMIA PROTOCOL 07/27/24 04:00 08/26/24 03:59 Docusate Sodium (COLace 100MG CAP) 100 mg BID PO 08/03/24 21:00 09/02/24 20:59 08/07/24 20:24 100 MG Doxycycline Hyclate 250 ml @ 125 mls/hr Q12H IV 07/27/24 16:00 07/29/24 21:35 DC 07/29/24 03:37 125 MLS/HR Doxycycline Hyclate 250 ml @ 125 mls/hr Q12H IV 07/29/24 23:59 08/01/24 22:57 DC 08/01/24 15:54 125 MLS/HR Doxycycline Hyclate 250 ml @ 125 mls/hr Q12H IV 08/02/24 04:00 08/12/24 03:59 08/08/24 05:32 125 MLS/HR Famotidine (Pepcid 20mg Tab) 20 mg Q48H PO 07/27/24 02:30 08/26/24 02:29 08/08/24 02:10 20 MG Ferrous Sulfate (Ferrous Sulfate) 325 mg DAILY PO 07/30/24 09:00 08/29/24 08:59 08/07/24 09:04 325 MG Fluconazole (DiFLUCan 100 mg TAB) 100 mg DAILY PO 08/02/24 11:00 08/04/24 12:53 DC 08/04/24 09:22 100 MG Fluconazole/ Sodium Chloride 100 ml @ 100 mls/hr Q24H IV 08/04/24 13:00 09/03/24 12:59 08/07/24 12:46 100 MLS/HR Gabapentin (NEURontin 100 mg CAP) 100 mg BID PO 07/29/24 21:00 08/28/24 20:59 08/07/24 20:24 100 MG Glucagon (Glucagon 1mg Kit) 1 mg AD PRN IM HYPOGLYCEMIA PROTOCOL 07/27/24 04:00 08/26/24 03:59 Home Med (Home Medication) DAPAGLIFLOZIN 5MG TAB DAILY PO 07/30/24 09:00 08/29/24 08:59 08/07/24 09:04 1 EACH Hydromorphone HCl (DiLAUDid 0.5MG INJ) 0.5 mg Q3H PRN IVP SEVERE PAIN (7-10) 08/07/24 12:30 08/12/24 12:29 08/08/24 02:11 0.5 MG Hydromorphone HCl (DiLAUDid 0.5MG INJ) 0.5 mg Q3H PRN IVP SEVERE PAIN (7-10) 08/01/24 19:30 08/06/24 19:29 DC 08/06/24 18:04 0.5 MG Hydromorphone HCl (DiLAUDid 0.5MG INJ) 0.5 mg Q3H3 PRN IVP SEVERE PAIN (7-10) 07/27/24 13:30 08/01/24 13:29 DC 07/31/24 05:57 0.5 MG Hydromorphone HCl (DiLAUDid 1MG INJ) 1 mg ONCE STAT IVP 08/03/24 12:49 08/03/24 13:11 DC 08/03/24 13:21 1 MG Insulin Glargine (LANtus 100 UNITS/ML 10 ML VIAL) 12 units HS SQ 07/30/24 21:00 08/29/24 20:59 08/07/24 20:38 12 UNITS Insulin Human Regular (humuLIN R 100 UNIT/ML 3ML) 5 unit TIDAC SQ 08/03/24 11:30 09/02/24 11:29 08/08/24 06:24 5 UNIT Insulin Human Regular (humuLIN R 100 UNIT/ML 3ML) INSULIN SLIDING SCAL... ACHS SQ 07/27/24 07:30 08/26/24 07:29 08/07/24 16:48 2 UNIT Lactulose (Constulose 20gm/ 30ml Udcup) 20 gm BID PRN PO CONSTIPATION 07/30/24 08:30 08/29/24 08:29 08/05/24 12:20 20 GM Magnesium Sulfate 50 ml @ 0 mls/hr PROTOCOL IV 07/27/24 10:00 07/27/24 13:42 DC Magnesium Sulfate 50 ml @ 0 mls/hr PROTOCOL IV 07/27/24 14:00 07/30/24 08:49 DC 07/30/24 06:27 25 MLS/HR Magnesium Sulfate 50 ml @ 0 mls/hr PROTOCOL IV 08/07/24 12:00 08/07/24 12:02 DC Magnesium Sulfate 50 ml @ 0 mls/hr PROTOCOL IV 07/30/24 09:00 08/29/24 08:59 08/07/24 09:07 12.5 MLS/HR Magnesium Sulfate 50 ml @ 0 mls/hr PROTOCOL IV 08/03/24 09:30 08/03/24 09:18 DC Magnesium Sulfate 50 ml @ 0 mls/hr PROTOCOL PRN IV OTHER [SEE ORDER COMMENTS] 07/27/24 04:00 07/27/24 13:42 DC 07/27/24 07:59 12.5 MLS/HR Meropenem (Merrem 1gm) 1 gm Q12H IVPB 07/31/24 15:30 08/10/24 15:29 08/08/24 02:10 1 GM Ondansetron HCl (zoFRAN 4MG INJ) 4 mg Q6H PRN IV NAUSEA/VOMITING 07/27/24 02:30 08/26/24 02:29 Piperacillin Sod/ Tazobactam Sod 50 ml @ 12.5 mls/hr Q8H IV 07/27/24 05:00 07/27/24 14:15 DC 07/27/24 12:14 12.5 MLS/HR Potassium Chloride 100 ml @ 100 mls/hr AD PRN IV POTASSIUM PROTOCOL 07/27/24 04:00 08/26/24 03:59 Potassium Chloride (K-Dur 10meq Sr Tab) 10 meq AD PRN PO POTASSIUM PROTOCOL 07/30/24 06:30 08/26/24 03:59 08/07/24 09:04 10 MEQ Potassium Chloride (K-Dur/Klor-Con 20meq) 10 meq AD PRN PO POTASSIUM PROTOCOL 07/27/24 04:00 07/30/24 06:22 DC 07/29/24 08:07 10 MEQ Potassium Chloride (KCl 10% Elixir 20meq/15ml) 10 meq AD PRN PO POTASSIUM PROTOCOL 07/27/24 04:00 08/26/24 03:59 Sodium Bicarbonate (Sodium Bicarbonate) 650 mg TID PRN PO INDIGESTION 07/27/24 12:00 08/26/24 11:59 Sodium Chloride 1,000 ml @ 0 mls/hr Q0M IV 08/01/24 12:00 08/31/24 11:59 Sodium Chloride 1,000 ml @ 100 mls/hr Q10H IV 07/27/24 03:30 07/30/24 15:05 DC 07/30/24 12:31 100 MLS/HR Tamsulosin HCl (FloMAX) 0.4 mg DAILY PO 07/28/24 09:00 08/27/24 08:59 08/07/24 09:03 0.4 MG Vancomycin HCl 250 ml @ 125 mls/hr ONCE IV 07/27/24 02:30 07/27/24 02:32 DC Vancomycin HCl 250 ml @ 125 mls/hr Q24H IV 07/28/24 01:00 07/27/24 14:15 DC Vancomycin HCl (Vancomycin Protocol) 1 each AD IV 07/27/24 00:00 07/27/24 14:21 DC Vitamin B Complex/ Vit C/Folic Acid (Nephrovite Tablet) 1 cap DAILY PO 07/28/24 09:00 08/27/24 08:59 08/07/24 09:03 1 CAP DIAGNOSTICS / RADIOLOGY: [ ] ASSESSMENT: Suspecting sepsis secondary right scrotal wall abscess, POA Right Epididymal orchitis, left side with abscess, POA 08/01/24 s/p I/D Right ischiorectal/perineal abscess tracking to the right hemiscrotum, 16 x 12 x 10 cm. with Wound vac Right testicular cellulitis POA Leukocytosis secondary above, POA improved Urinary retention requiring Thomas catheter POA Acute kidney injury with CKD POA Nephrotic syndrome, POA Hypertension POA Microcytic hypochromic anemia iron deficiency POA Acute thrombocytosis POA Uncontrolled diabetes POA Hyperlipidemia POA Morbid Obesity POA Coronary artery disease POA Severe Protein calorie Malnutrition, POA PAD with hx of AKA to the left side Obesity Hypoventilation Syndrome Metabolic acidosis, POA improved electrolytes derangement: hypomagnesemia functional decline POA Hallucination not present POA Uncontrolled type II diabetes with hyperglycemia PLAN: Continue admission in the medical floor condition: Guarded Consultants budget specialist's, Infectious Disease, Urology and psychiatry Continue IV Merrem , doxycycline, fluconazole Dr. Hernandes for antimicrobial stewardship. S/p I and D of scrotal mass with wound VAC tolerating wound VAC. Continue with local wound care wound VAC. following Dr. Darby recommendations Monitor Inflammatory markers every other day Continue glucometer checks before meals and at bedtime Continue sliding scale started premeal5 units of regular and currently on long- acting 12 units Lantus b.i.d. Continue hypoglycemic protocol Avoid NSAIDs, nephrotoxic agents, renally dose medications Thomas care Replace electrolytes as needed as per protocol to keep potassium above 4.0 magnesium 2.0. We will monitor H&H trend to keep hemoglobin above 7.0 vitamin B complex vitamin C folic acid one tablet daily. bowel regiment: lactulose 20 gm PO BID PRN constipation Pain management: Gabapentin 100 t.i.d.. [place] 5/325 p.o. as needed for pain. Continue to work with physical therapy Monitor a.m. labs PRN Treatment - Add when necessary meds for nausea, vomiting, pain, constipation, insomnia. DVT/GI prophylaxis- Continue SCDs and famotidine at current doses. Full CODE STATUS Completing 3rd night on permaculture designer today Case management coordinating for LTAC placement Planning to discharge to LTAC tomorrow This document was generated in part using voice recognition software, occasional wrong word or sound alike substitutions may have occurred due to the inherent limitations of voice recognition software. Read the chart carefully and recognize using context, where the substitutions have occurred. Although every effort was made to edit the content, sales consultant insurance and typing errors may occur EHLEN MEADP Aug 08, 2024 08:32
[2024-08-08] MEDS ORDERED: hydrALAZine 20MG/ML VIAL IV PRN (13:30)
[2024-08-08] MEDS: amLODIPine 5 MG TAB PO SCH (14:58)
--- NOTE | 2024-08-08 15:59 | PN ---
NEPHROLOGY PROGRESS NOTE Date/Time Patient Seen: Aug 08, 2024 Reason for Consultation: 15:58 SUBJECTIVE: This is a 49-year-old male with a past medical history of diabetes mellitus type 2, hypertension, peripheral arterial disease with left AKA, coronary artery disease, hyperlipidemia, GERD, PAD, and obesity Patient presented to the emergency room for testicular pain and swelling Thomas in place due to urinary retention, he was seen by Urology Blood cultures has been negative Continues on antibiotics as per ID Were consulted for renal failure. Renal function and electrolytes are stable. S/p Incision and drainage with debridement of right perineal and ischiorectal abscess tracking into the scrotum on 08/01/[address] Choudhury Wound Vac in place UA positive for proteinuria. Case management coordinating LTAC placement Patient was seen in the medical floor, in no acute distress Family at the bedside, multiple questions were answered REVIEW OF SYSTEMS: GENERAL: Positive for testicular pain and swelling NEUROLOGIC: Negative for any blurry vision, blind spots, double vision, facial asymmetry, dysphagia, dysarthria, hemiparesis, hemisensory deficits, vertigo, ataxia. HEENT: Negative for any head trauma, neck trauma, neck stiffness, photophobia, phonophobia, sinusitis, rhinitis. CARDIAC: Negative for any chest pain, dyspnea on exertion, paroxysmal nocturnal dyspnea, peripheral edema. PULMONARY: Negative for any shortness of breath, wheezing, COPD, or TB exposure. GASTROINTESTINAL: Negative for any abdominal pain, nausea, vomiting, bright red blood per rectum, melena. GENITOURINARY: Negative for any dysuria, hematuria, incontinence. INTEGUMENTARY: Negative for any rashes, cuts, insect bites. RHEUMATOLOGIC: Negative for any joint pains, photosensitive rashes, history of vasculitis or kidney problems. HEMATOLOGIC: Negative for any abnormal bruising, frequent infections or bleeding. PHYSICAL EXAM: GENERAL: Alert and oriented x 3. No acute distress. Well-nourished. EYES: EOMI. Anicteric. HENT: Moist mucous membranes. No scleral icterus. No cervical lymphadenopathy. LUNGS: Clear to auscultation bilaterally. No accessory muscle use. CARDIOVASCULAR: Regular rate and rhythm. No murmur. No JVD. ABDOMEN: Soft, non-tender and non-distended. No palpable masses. EXTREMITIES: 2+ edema. Non-tender. SKIN: No rashes or lesions. Warm. NEUROLOGIC: No focal neurological deficits. CN II-XII grossly intact, but not individually tested. PSYCHIATRIC: Cooperative. Appropriate mood and affect. LABORATORY: [ ] Hematology Labs: Test 08/08/24 04:53 Range/Units White Blood Count 12.4 H 4.8-10.8 K/uL Red Blood Count 3.93 L 4.50-6.20 MIL/uL Hemoglobin 9.4 L 14.0-18.0 g/dL Hematocrit 30.6 L 42-54 % Mean Corpuscular Volume 77.9 L 79-99 fL Mean Corpuscular Hemoglobin 23.9 L 27.0-33.0 pg Mean Corpuscular Hemoglobin Concent 30.7 L 32.0-36.0 g/dL Red Cell Distribution Width 15.0 11.0-15.5 % Platelet Count 707 H 130-400 K/uL Mean Platelet Volume 9.4 7.5-10.5 fL Immature Granulocyte % (Auto) 0.6 0-1 % Neutrophils (%) (Auto) 58.5 40.0-77.0 % Lymphocytes (%) (Auto) 32.0 21.0-51.0 % Monocytes (%) (Auto) 5.5 3.0-13.0 % Eosinophils (%) (Auto) 2.6 0.0-8.0 % Basophils (%) (Auto) 0.8 0.0-5.0 % Neutrophils # (Auto) 7.3 1.8-7.7 K/uL Lymphocytes # (Auto) 4.0 1.0-4.8 K/uL Monocytes # (Auto) 0.7 0.1-1.0 K/uL Eosinophils # (Auto) 0.32 0.00-0.70 K/uL Basophils # (Auto) 0.10 0.00-0.20 K/uL Absolute Immature Granulocyte (auto 0.07 0-1 K/uL Nucleated Red Blood Cells 0.0 0.0-0.19 % Platelet Morphology Comment See comments Chemistry Labs: Test 08/08/24 10:38 08/08/24 04:53 08/07/24 06:09 Range/Units Whole Blood Glucose 150 H 70-110 MG/DL Sodium Level 139 136-145 mmol/L Potassium Level 3.8 3.5-5.1 mmol/L Chloride Level 104 101-111 mmol/L Carbon Dioxide Level 25 21-32 mmol/L Blood Urea Nitrogen 47 H 7-18 mg/dL Creatinine 1.4 H 0.5-1.3 mg/dL Glomerular Filtration Rate Calc 62 >90 mL/min Random Glucose 186 H 70-105 mg/dL Total Calcium 8.8 8.5-10.1 mg/dL Phosphorus Level 4.3 2.5-4.9 mg/dL Magnesium Level 1.50 L 1.80-2.40 mg/dL Total Bilirubin 0.2 0.2-1.0 mg/dL Aspartate Amino Transf (AST/SGOT) 20 10-37 U/L Alanine Aminotransferase (ALT/SGPT) 27 12-78 U/L Alkaline Phosphatase 199 H 50-136 U/L Total Protein 7.0 6.0-8.3 g/dL Albumin 1.4 L 3.5-5.0 g/dL Diagnostic REASON: RIGHT ARM PAIN ORDERING PHYSICIAN: RICHAR JOSEPH NP PROCEDURE: VENOUS UNI - US VENOUS DOPPLER UNILATERAL US VENOUS DOPPLER UNILATERAL HISTORY: Right arm pain COMPARISON: None TECHNIQUE: Right upper extremity venous Doppler ultrasound study was performed. FINDINGS: The right subclavian, axillary, and brachial veins are visualized. Normal flow with augmentation and compressibilities are demonstrated. Right cephalic vein is patent. Noncompressible thrombus is seen in the right basilic vein consistent with superficial thrombophlebitis. IMPRESSION: 1. No evidence of deep venous thrombosis is seen. Noncompressible thrombus is seen in the right basilic vein consistent with superficial thrombophlebitis. REASON: repeat to compared from admssion swollen ORDERING PHYSICIAN: RICHAR JOSEPH NP PROCEDURE: SCROTUM - US SCROTUM & CONTENTS US SCROTUM & CONTENTS HISTORY: Follow-up scrotal abscess COMPARISON: None TECHNIQUE: Duplex scrotal ultrasound study was performed. FINDINGS: The right testes measures 3.8 x 2 x 1.6 cm. The left testes measures 2.3 x 2.1 cm. Normal flow is seen of left testes and bilateral epididymides. Mild increased flow is seen of the right testes suggested of right orchitis. There is right scrotal abscess measuring 7.9 x 3.6 x 5 cm with adjacent wall thickening. Normal flow is demonstrated in the testes and epididymides bilaterally. No hydroceles or varicocele is seen. IMPRESSION: 1. Mild increased flow is seen of the right testes suggested of right orchitis. There is right scrotal abscess measuring 7.9 x 3.6 x 5 cm with adjacent wall thickening. DICTATED BY: BRIAN LUBIN MD DATE: 07/30/24 1131 DICTATED BY: BRIAN LUBIN MD DATE: 08/02/24 1544 REASON: testicular pain and swelling ORDERING PHYSICIAN: JACQUELYN GIBBS DRILL OPERATOR AUTOMATIC PROCEDURE: SCROTUM - US SCROTUM & CONTENTS US SCROTUM & CONTENTS HISTORY: Testicular pain COMPARISON: None TECHNIQUE: Duplex scrotal ultrasound study was performed. FINDINGS: The right testes measures 3.6 x 1.4 x 2.7 cm. The left testes measures 3.5 x 1.6 x 2 cm. No evidence of intratesticular mass or abnormal calcification is seen. Normal flow is demonstrated in the left testes and left epididymis. There is left epididymal cyst measuring 3 mm. Hypoechoic focus is seen in the epididymal head with adjacent vascularity measuring 4.3 x 1.9 x 3.8 cm at the inferior aspect of the left testes. Slight increased flow is seen of the right testes and right epididymis suspicious for right epididymal orchitis. No hydroceles or varicocele is seen. IMPRESSION: 1. Findings may be related to mild right epididymal orchitis. DICTATED BY: BRIAN LUBIN MD DATE: 07/27/24 0902 ASSESSMENT: Acute on chronic renal failure Nephrotic syndrome Anemia Metabolic acidosis Right testicular clear cellulitis Urinary retention S/p Thomas catheter Electrolyte derangement Coronary artery disease Uncontrolled Diabetes mellitus type 2 Hyperlipidemia PAD S/p left AKA Severe protein calorie malnutrition Obesity PLAN: Labs, diagnostic, radiologic exams reviewed and interpreted by myself and supervising physician. We have reviewed external records in detail Case management coordinating LTAC placement. Require close monitoring of renal function and electrolytes Order CBC, CMP, and electrolytes in am Continue with antibiotics Renal diabetic diet BiPAP as necessary, for respiratory distress Monitor blood pressure adjust medication doses as needed Avoid hypotensive episodes May use Dilaudid 0.5 mg IV every 6 hours as needed for severe pain Monitor blood sugars Strict intake, output, and daily weight should be monitored Please renally adjust medications Avoid nephrotoxic and nonsteroidal drugs Avoid contrast if possible Will continue to monitor renal function, anemia, electrolytes Treatment plan discussed with patient Questions were answered We have discussed with the other team physicians in detail about the care plan We will continue to monitor the patient closely ATTESTATION BY PHYSICIAN I have seen and examined the patient. I reviewed the documentation, medical decision making, and treatment plan as noted by the mid-level provider above. I agree with the findings and plan of care. KRUPA MANDEL MD, [facility] Aug 08, 2024 15:59
--- NOTE | 2024-08-08 17:16 | PN ---
INFECTIOUS DISEASE PROGRESS NOTE Date of Service: Aug 08, 2024 SUBJECTIVE: This is a 49-year-old male patient presented to the hospital with chief complaint of right testicle pain. A scrotal ultrasound done on admission showed mild right epididymal orchitis. Patient was seen and examined at bedside in room 317. Patient is awake, alert and oriented x3. Patient has been referred to [facility] and pending one more night on telemetry monitoring per criteria. The WBC trended up to 12.4 with no fever, temperature is 98.1. Continues on fluconazole, doxycycline and Meropenem. Patient is pending placement. PHYSICAL EXAM EYES: Anicteric. Pupils equal and reactive. Right eye blindness. HENT: No oral thrush seen, moist Oral mucosa. NECK: Supple, no JVD or thyromegaly. LUNGS: Good air entry. No rales, no rhonchi. CARDIOVASCULAR: S1, S2 regular. No murmur heard. ABDOMEN: Soft, non tender, bowel sounds present, no organomegaly. CENTRAL NERVOUS SYSTEM: Awake, alert, oriented x 3. SKIN: No rashes, no swelling. LYMPHATICS: No peripheral lymphadenopathy. MUSCULOSKELETAL: No joint swelling, erythema or tenderness. EXTREMITIES: No cyanosis or clubbing. 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 BACK: No deformity, no pressure ulcer. GENITOURINARY: No dysuria or hematuria. Thomas catheter. SCROTUM: Right Scrotal abscess, status post I&D with wound VAC placement. Vital Sign (Last 12 Hours) 08/08/24 08/08/24 08/08/24 08:00 11:34 16:00 Temp 98.1 98.1 97.7 Pulse 80 73 75 Resp 18 18 18 B/P (MAP) 134/89 155/82 150/77 Pulse Ox 96 97 O2 Delivery Room Air Room Air Room Air Intake & Output (last 24hrs) 08/07/24 08/07/24 08/08/24 15:00 23:00 07:00 Intake Total 100.0 ml Output Total 2600 ml Balance -2500.0 ml LABS: Laboratory: Test 08/08/24 16:02 08/08/24 04:53 08/07/24 06:09 Range/Units Whole Blood Glucose 179 H 70-110 MG/DL White Blood Count 12.4 H 4.8-10.8 K/uL Red Blood Count 3.93 L 4.50-6.20 MIL/uL Hemoglobin 9.4 L 14.0-18.0 g/dL Hematocrit 30.6 L 42-54 % Mean Corpuscular Volume 77.9 L 79-99 fL Mean Corpuscular Hemoglobin 23.9 L 27.0-33.0 pg Mean Corpuscular Hemoglobin Concent 30.7 L 32.0-36.0 g/dL Red Cell Distribution Width 15.0 11.0-15.5 % Platelet Count 707 H 130-400 K/uL Mean Platelet Volume 9.4 7.5-10.5 fL Immature Granulocyte % (Auto) 0.6 0-1 % Neutrophils (%) (Auto) 58.5 40.0-77.0 % Lymphocytes (%) (Auto) 32.0 21.0-51.0 % Monocytes (%) (Auto) 5.5 3.0-13.0 % Eosinophils (%) (Auto) 2.6 0.0-8.0 % Basophils (%) (Auto) 0.8 0.0-5.0 % Neutrophils # (Auto) 7.3 1.8-7.7 K/uL Lymphocytes # (Auto) 4.0 1.0-4.8 K/uL Monocytes # (Auto) 0.7 0.1-1.0 K/uL Eosinophils # (Auto) 0.32 0.00-0.70 K/uL Basophils # (Auto) 0.10 0.00-0.20 K/uL Absolute Immature Granulocyte (auto 0.07 0-1 K/uL Nucleated Red Blood Cells 0.0 0.0-0.19 % Platelet Morphology Comment See comments Sodium Level 139 136-145 mmol/L Potassium Level 3.8 3.5-5.1 mmol/L Chloride Level 104 101-111 mmol/L Carbon Dioxide Level 25 21-32 mmol/L Blood Urea Nitrogen 47 H 7-18 mg/dL Creatinine 1.4 H 0.5-1.3 mg/dL Glomerular Filtration Rate Calc 62 >90 mL/min Random Glucose 186 H 70-105 mg/dL Total Calcium 8.8 8.5-10.1 mg/dL Phosphorus Level 4.3 2.5-4.9 mg/dL Magnesium Level 1.50 L 1.80-2.40 mg/dL Total Bilirubin 0.2 0.2-1.0 mg/dL Aspartate Amino Transf (AST/SGOT) 20 10-37 U/L Alanine Aminotransferase (ALT/SGPT) 27 12-78 U/L Alkaline Phosphatase 199 H 50-136 U/L Total Protein 7.0 6.0-8.3 g/dL Albumin 1.4 L 3.5-5.0 g/dL ASSESSMENT: Scrotal wall abscess with cellulitis, status post I&D and debridement of the right scrotal abscess with a wound VAC application on 08/01/2024. Right epididymal orchitis Urinary tract infection with yeast species. Leukocytosis. Acute renal failure. Diabetes mellitus. PLAN: Continue on Meropenem. Continue on fluconazole. Continue on doxycycline. Wound care as recommended by Urology. Continue GI prophylaxis. Continue pain management. Continue monitoring glucose levels. Pending placement to LTAC.for wound management and IV antibiotic therapy. This case was reviewed and discussed with my supervising physician and the above assessment and plan was formulated and agreed upon. ATTESTATION BY PHYSICIAN I have seen and examined the patient. I reviewed the documentation, medical decision making, and treatment plan as noted by the mid-level provider above. I agree with the findings and plan of care. GRANT SUMMERS MD, [facility] CARRIAGE OPERATOR Aug 08, 2024 17:16
[2024-08-09 00:31] VITALS: BP 142/81; PULSE 86; RESP 18; TEMP 97.6
[2024-08-09 04:37] VITALS: BP 144/85; PULSE 84; RESP 18; TEMP 98
[2024-08-09 05:57] LABS: BASOPHILS # (AUTO) 0.06 K/uL (0.00-0.20); BASOPHILS % (AUTO) 0.6 % (0.0-5.0); EOSINOPHILS # (AUTO) 0.16 K/uL (0.00-0.70); EOSINOPHILS % (AUTO) 1.5 % (0.0-8.0); HEMATOCRIT 29.6 % (42-54); IMMATURE GRANULOCYTE ABSOLUTE 0.08 K/uL (0-1); LYMPHOCYTES # (AUTO) 2.7 K/uL (1.0-4.8); LYMPHOCYTES % (AUTO) 25.8 % (21.0-51.0); MEAN CORPUSCULAR HGB CONC 31.1 g/dL (32.0-36.0); MEAN CORPUSCULAR VOLUME 77.1 fL (79-99); MONOCYTES # (AUTO) 0.5 K/uL (0.1-1.0); MONOCYTES % (AUTO) 5.1 % (3.0-13.0); NEUTROPHILS % (AUTO) 66.2 % (40.0-77.0); PLATELET COUNT (AUTO) 608 K/uL (130-400); RED BLOOD CELL COUNT(AUTO) 3.84 MIL/uL (4.50-6.20); RED CELL DISTRIBUTION WIDTH 15.2 % (11.0-15.5); WHITE BLOOD COUNT (AUTO) 10.5 K/uL (4.8-10.8)
[2024-08-09 06:15] LABS: ALBUMIN 1.5 g/dL (3.5-5.0); BILIRUBIN,TOTAL 0.1 mg/dL (0.2-1.0); CREATININE 1.4 mg/dL (0.5-1.3); POTASSIUM 4.3 mmol/L (3.5-5.1)
[2024-08-09 08:00] VITALS: BP 140/92; PULSE 80; RESP 18; TEMP 98.1; O2SAT 95
--- NOTE | 2024-08-09 09:10 | NUR ---
[facility] approval Spoke to patient. Patient called on cell phone. Explained that patient has auth to [employer] and that patient has completed the 3 tele midnights to qualify. Explained IM Letter. Patient signed after okayed patient to do so, and this CM provided copy. Patient and both in agreement to discharge today. Explained EMS will be arranged and we are awaiting medication reconciliation and discharge order as planned by attending. This CM faxed signed IM Letter to ext. [phone] and placed in chart. Addendum: 08/09/24 at 0915 by TOR MARROQUIN Amended: Links added.
--- NOTE | 2024-08-09 09:44 | DS ---
Discharge Summary Hospital Course Summary: This is a 49-year-old that was admitted early this morning with chief complaints of testicular cellulitis. Patient is fully awake alert oriented x3 patient has a Thomas catheter secondary to urinary retention were being urology started patient on Flomax. Patient has no history of urinary retention. GEOVANNI on this admission green end worker following. Patient has a history of nephrotic syndrome we will discontinue vancomycin and Zosyn. S/p I&D with debridement of right peroneal and ischial rectal abscess tracking into the scrotum by Dr. Choudhury on 08/01/2024 08/09/2024: This morning Mr iMramontes is alert oriented x3. No incidences reported overnight. His vital signs are stable, afebrile, satting 95% on room air. Leukocytosis currently resolved, H&H is 9.2/29.6, platelets at 608, renal betito rajan are stable, BUN 46, creatinine 1.4. Continues with IV doxycycline and Merrem at ID's direction. Continues with wound VAC, Dr. Darby managing care. Case management has been notified patient was accepted at LTAC. Patient was medically cleared for discharge and transfer to LT. Pulp Roller(s): Hematology Dr. Henriquez Infectious disease Dr. Valerio Hernandes Nephrology Dr. Francisco Urology Dr. Choudhury presidential support specialist Dr. Darby Procedure(s): S/p I&D with debridement of right peroneal and ischial rectal abscess tracking into the scrotum by Dr. Choudhury on 08/01/2024 Assessment/Plan: ASSESSMENT: sepsis secondary right scrotal wall abscess/right epididymo-orchitis, POA Right Epididymal orchitis, left side with abscess, POA 08/01/24 s/p I/D Right ischiorectal/perineal abscess tracking to the right hemiscrotum, 16 x 12 x 10 cm. with Wound vac Right testicular cellulitis POA Leukocytosis secondary above, POA improved Urinary retention requiring Thomas catheter POA Acute kidney injury with CKD POA Nephrotic syndrome, POA Hypertension POA Microcytic hypochromic anemia iron deficiency POA Acute thrombocytosis POA improving Uncontrolled diabetes POA Hyperlipidemia POA Morbid Obesity POA Coronary artery disease POA Severe Protein calorie Malnutrition, POA PAD with hx of AKA to the left side Obesity Hypoventilation Syndrome Metabolic acidosis, POA improved electrolytes derangement: hypomagnesemia functional decline POA Hallucination not present POA Uncontrolled type II diabetes with hyperglycemia PLAN: Medically stable and cleared for discharge to LTAC condition: [facility] green end worker's, Infectious Disease, Urology and psychiatry Continue IV Merrem , doxycycline, fluconazole Dr. Hernandes for antimicrobial stewardship. S/p I and D of scrotal mass with wound VAC tolerating wound VAC. Continue with local wound care wound VAC. following Dr. Darby recommendations Monitor Inflammatory markers every other day Continue glucometer checks before meals and at bedtime Continue sliding scale started premeal5 units of regular and currently on long- acting 12 units Lantus b.i.d. Continue hypoglycemic protocol Avoid NSAIDs, nephrotoxic agents, renally dose medications Thomas care Replace electrolytes as needed as per protocol to keep potassium above 4.0 magnesium 2.0. We will monitor H&H trend to keep hemoglobin above 7.0 vitamin B complex vitamin C folic acid one tablet daily. bowel regiment: lactulose 20 gm PO BID PRN constipation Pain management: Gabapentin 100 t.i.d.. [place] 5/325 p.o. as needed for pain. Continue to work with physical therapy Monitor a.m. labs PRN Treatment - Add when necessary meds for nausea, vomiting, pain, const ipation, insomnia. DVT/GI prophylaxis- Continue SCDs and famotidine at current doses. Full CODE STATUS Completing 3rd night on security monitor today Case management coordinating for LTAC placement, accepted this morning. Medically cleared This document was generated in part using voice recognition software, occasional wrong word or sound alike substitutions may have occurred due to the inherent limitations of voice recognition software. Read the chart carefully and recognize using context, where the substitutions have occurred. Although every effort was made to edit the content, restorative coordinator and typing errors may occur Discharge Instructions: Okay to discharge and transfer to LTAC Home Medications: Reported Medications Dapagliflozin Propanediol (Farxiga) 5 Mg Tablet, 1 TAB PO DAILY for 30 Days, #30 TAB 0 Refills 07/27/24 Ferrous Sulfate (Ferrous Sulfate) 325 Mg (65 Mg Iron) Ectab, 1 TAB PO DAILY for 30 Days, #30 TAB 0 Refills 07/27/24 Clotrimazole (Clotrimazole) 1 % Cream..g., 1 APPL TP BID for 7 Days, #15 GM 0 Refills apply to affected area(s) 07/27/24 Aspirin (Aspirin) 81 Mg Tab.chew, 81 MG PO AM, TAB.CHEW 02/01/23 Lisinopril (Lisinopril) 20 Mg Tablet, 20 MG PO AM, TAB 12/29/22 Clopidogrel Bisulfate (Plavix) 75 Mg Tablet, 75 MG PO DAILY, TAB 12/29/22 Sitagliptin Phos/Metformin HCl (Janumet 50-1,000 mg Tablet) 50 Mg-1,000 Mg Tablet, 1 EACH PO BID, TAB 12/29/22 Atorvastatin Calcium (LIPITOR) 40 Mg Tablet, 40 MG PO HS, TAB 12/29/22 Gabapentin (Gabapentin) 100 Mg Capsule, 100 MG PO BID, CAP 12/29/22 Time spent arranging discharge: 31-60 minutes HELEN MEAD Aug 09, 2024 09:44
[2024-08-09 12:00] VITALS: BP 116/76; PULSE 100; RESP 18; TEMP 98.4
--- NOTE | 2024-08-09 13:17 | PN ---
NEPHROLOGY PROGRESS NOTE Date/Time Patient Seen: Aug 09, 2024 SUBJECTIVE: This is a 49-year-old male with a past medical history of diabetes mellitus type 2, hypertension, peripheral arterial disease with left AKA, coronary artery disease, hyperlipidemia, GERD, PAD, and obesity Patient presented to the emergency room for testicular pain and swelling Thomas in place due to urinary retention, he was seen by Urology Blood cultures has been negative Continues on antibiotics as per ID Were consulted for renal failure. Renal function and electrolytes are stable. S/p Incision and drainage with debridement of right perineal and ischiorectal abscess tracking into the scrotum on 08/01/[address] Choudhury Wound Vac in place UA positive for proteinuria. Case management coordinating LTAC placement, pending discharge later today Patient was seen in the medical floor, in no acute distress Family at the bedside, multiple questions were answered REVIEW OF SYSTEMS: GENERAL: Positive for testicular pain and swelling NEUROLOGIC: Negative for any blurry vision, blind spots, double vision, facial asymmetry, dysphagia, dysarthria, hemiparesis, hemisensory deficits, vertigo, ataxia. HEENT: Negative for any head trauma, neck trauma, neck stiffness, photophobia, phonophobia, sinusitis, rhinitis. CARDIAC: Negative for any chest pain, dyspnea on exertion, paroxysmal nocturnal dyspnea, peripheral edema. PULMONARY: Negative for any shortness of breath, wheezing, COPD, or TB exposure. GASTROINTESTINAL: Negative for any abdominal pain, nausea, vomiting, bright red blood per rectum, melena. GENITOURINARY: Negative for any dysuria, hematuria, incontinence. INTEGUMENTARY: Negative for any rashes, cuts, insect bites. RHEUMATOLOGIC: Negative for any joint pains, photosensitive rashes, history of vasculitis or kidney problems. HEMATOLOGIC: Negative for any abnormal bruising, frequent infections or bleeding. PHYSICAL EXAM: GENERAL: Alert and oriented x 3. No acute distress. Well-nourished. EYES: EOMI. Anicteric. HENT: Moist mucous membranes. No scleral icterus. No cervical lymphadenopathy. LUNGS: Clear to auscultation bilaterally. No accessory muscle use. CARDIOVASCULAR: Regular rate and rhythm. No murmur. No JVD. ABDOMEN: Soft, non-tender and non-distended. No palpable masses. EXTREMITIES: 2+ edema. Non-tender. SKIN: No rashes or lesions. Warm. NEUROLOGIC: No focal neurological deficits. CN II-XII grossly intact, but not individually tested. PSYCHIATRIC: Cooperative. Appropriate mood and affect. LABORATORY: [ ] Hematology Labs: Test 08/09/24 05:44 08/08/24 04:53 Range/Units White Blood Count 10.5 4.8-10.8 K/uL Red Blood Count 3.84 L 4.50-6.20 MIL/uL Hemoglobin 9.2 L 14.0-18.0 g/dL Hematocrit 29.6 L 42-54 % Mean Corpuscular Volume 77.1 L 79-99 fL Mean Corpuscular Hemoglobin 24.0 L 27.0-33.0 pg Mean Corpuscular Hemoglobin Concent 31.1 L 32.0-36.0 g/dL Red Cell Distribution Width 15.2 11.0-15.5 % Platelet Count 608 H 130-400 K/uL Mean Platelet Volume 9.1 7.5-10.5 fL Immature Granulocyte % (Auto) 0.8 0-1 % Neutrophils (%) (Auto) 66.2 40.0-77.0 % Lymphocytes (%) (Auto) 25.8 21.0-51.0 % Monocytes (%) (Auto) 5.1 3.0-13.0 % Eosinophils (%) (Auto) 1.5 0.0-8.0 % Basophils (%) (Auto) 0.6 0.0-5.0 % Neutrophils # (Auto) 7.0 1.8-7.7 K/uL Lymphocytes # (Auto) 2.7 1.0-4.8 K/uL Monocytes # (Auto) 0.5 0.1-1.0 K/uL Eosinophils # (Auto) 0.16 0.00-0.70 K/uL Basophils # (Auto) 0.06 0.00-0.20 K/uL Absolute Immature Granulocyte (auto 0.08 0-1 K/uL Nucleated Red Blood Cells 0.0 0.0-0.19 % Platelet Morphology Comment See comments Chemistry Labs: Test 08/09/24 12:22 08/09/24 05:44 Range/Units Whole Blood Glucose 257 H 70-110 MG/DL Sodium Level 138 136-145 mmol/L Potassium Level 4.3 3.5-5.1 mmol/L Chloride Level 106 101-111 mmol/L Carbon Dioxide Level 26 21-32 mmol/L Blood Urea Nitrogen 46 H 7-18 mg/dL Creatinine 1.4 H 0.5-1.3 mg/dL Glomerular Filtration Rate Calc 62 >90 mL/min Random Glucose 245 H 70-105 mg/dL Total Calcium 8.4 L 8.5-10.1 mg/dL Total Bilirubin 0.1 L 0.2-1.0 mg/dL Aspartate Amino Transf (AST/SGOT) 32 10-37 U/L Alanine Aminotransferase (ALT/SGPT) 38 12-78 U/L Alkaline Phosphatase 194 H 50-136 U/L Total Protein 7.0 6.0-8.3 g/dL Albumin 1.5 L 3.5-5.0 g/dL Diagnostic REASON: RIGHT ARM PAIN ORDERING PHYSICIAN: RICHAR JOSEPH NP PROCEDURE: VENOUS UNI - US VENOUS DOPPLER UNILATERAL US VENOUS DOPPLER UNILATERAL HISTORY: Right arm pain COMPARISON: None TECHNIQUE: Right upper extremity venous Doppler ultrasound study was performed. FINDINGS: The right subclavian, axillary, and brachial veins are visualized. Normal flow with augmentation and compressibilities are demonstrated. Right cephalic vein is patent. Noncompressible thrombus is seen in the right basilic vein consistent with superficial thrombophlebitis. IMPRESSION: 1. No evidence of deep venous thrombosis is seen. Noncompressible thrombus is seen in the right basilic vein consistent with superficial thrombophlebitis. REASON: repeat to compared from admssion swollen ORDERING PHYSICIAN: RICHAR JOSEPH NP PROCEDURE: SCROTUM - US SCROTUM & CONTENTS US SCROTUM & CONTENTS HISTORY: Follow-up scrotal abscess COMPARISON: None TECHNIQUE: Duplex scrotal ultrasound study was performed. FINDINGS: The right testes measures 3.8 x 2 x 1.6 cm. The left testes measures 2.3 x 2.1 cm. Normal flow is seen of left testes and bilateral epididymides. Mild increased flow is seen of the right testes suggested of right orchitis. There is right scrotal abscess measuring 7.9 x 3.6 x 5 cm with adjacent wall thickening. Normal flow is demonstrated in the testes and epididymides bilaterally. No hydroceles or varicocele is seen. IMPRESSION: 1. Mild increased flow is seen of the right testes suggested of right orchitis. There is right scrotal abscess measuring 7.9 x 3.6 x 5 cm with adjacent wall thickening. DICTATED BY: BRIAN LUBIN MD DATE: 07/30/24 1131 DICTATED BY: BRIAN LUBIN MD DATE: 08/02/24 1544 REASON: testicular pain and swelling ORDERING PHYSICIAN: JACQUELYN GIBBS PROCEDURE: SCROTUM - US SCROTUM & CONTENTS US SCROTUM & CONTENTS HISTORY: Testicular pain COMPARISON: None TECHNIQUE: Duplex scrotal ultrasound study was performed. FINDINGS: The right testes measures 3.6 x 1.4 x 2.7 cm. The left testes measures 3.5 x 1.6 x 2 cm. No evidence of intratesticular mass or abnormal calcification is seen. Normal flow is demonstrated in the left testes and left epididymis. There is left epididymal cyst measuring 3 mm. Hypoechoic focus is seen in the epididymal head with adjacent vascularity measuring 4.3 x 1.9 x 3.8 cm at the inferior aspect of the left testes. Slight increased flow is seen of the right testes and right epididymis suspicious for right epididymal orchitis. No hydroceles or varicocele is seen. IMPRESSION: 1. Findings may be related to mild right epididymal orchitis. DICTATED BY: BRIAN LUBIN MD DATE: 07/27/24 0902 ASSESSMENT: Acute on chronic renal failure Nephrotic syndrome Anemia Metabolic acidosis Right testicular clear cellulitis Urinary retention S/p Thomas catheter Electrolyte derangement Coronary artery disease Uncontrolled Diabetes mellitus type 2 Hyperlipidemia PAD S/p left AKA Severe protein calorie malnutrition Obesity PLAN: Labs, diagnostic, radiologic exams reviewed and interpreted by myself and supervising physician. We have reviewed external records in detail Case management coordinating LTAC placement, pending discharge later today Require close monitoring of renal function and electrolytes Continue with antibiotics Renal diabetic diet BiPAP as necessary, for respiratory distress Monitor blood pressure adjust medication doses as needed Avoid hypotensive episodes May use Dilaudid 0.5 mg IV every 6 hours as needed for severe pain Monitor blood sugars Strict intake, output, and daily weight should be monitored Please renally adjust medications Avoid nephrotoxic and nonsteroidal drugs Avoid contrast if possible Will continue to monitor renal function, anemia, electrolytes Treatment plan discussed with patient Questions were answered We have discussed with the other team physicians in detail about the care plan We will continue to monitor the patient closely ATTESTATION BY PHYSICIAN I have seen and examined the patient. I reviewed the documentation, medical decision making, and treatment plan as noted by the mid-level provider above. I agree with the findings and plan of care. KRUPA MANDEL MD, [facility] Aug 09, 2024 13:17
[2024-08-09] MEDS ORDERED: IRON sUCROse COMPLEX 100 MG/5 ML VIAL IV ONE (13:30)
--- NOTE | 2024-08-09 13:59 | CONS ---
CONSULT NOTE: This is a 49-year-old male with morbid obesity, right eye blindness, and diabetes mellitus, who presented to hospital with right testicular pain, swelling and redness. The patient also complained of dysuria and urinary frequency. The patient claims urine flow has been very low. The patient found to have urinary retention. Thomas catheter was placed. Urinalysis was positive. A sonogram showing right epididymal orchitis.Patient also was found to have abscess to the scrotum around the testicle. Patient was seen by urology status post surgery with wound VAC in place PAST MEDICAL HISTORY: * Right eye blindness. * Diabetes mellitus. * Dyslipidemia. * Peripheral vascular disease. * Obesity. * Coronary artery disease. PAST SURGICAL HISTORY: * Right lower extremity stenting. * PCI. * Eye surgery. ALLERGIES: MORPHINE. CURRENT MEDICATIONS: Include: * Ceftriaxone. * Doxycycline. * Pepcid. * Insulin. * Tylenol. * Zofran. SOCIAL HISTORY: No alcohol, tobacco or illicit drug use. FAMILY HISTORY: Positive for diabetes mellitus. REVIEW OF SYSTEMS: Greater than 10 systems were reviewed, negative except as documented above. PHYSICAL EXAMINATION: GENERAL: Elderly male, awake. VITAL SIGNS: Temperature 98.8, pulse 80, respiratory rate 18, BP 124/68. EYES: Right eye blindness. HENT: No oral thrush seen. Moist oral mucosa. NECK: Supple, no JVD or thyromegaly. LUNGS: Good air entry. No rales, no rhonchi. CARDIOVASCULAR: S1, S2 regular. No murmur heard. ABDOMEN: Full, soft, nontender. Bowel sound is present. Obese. No organomegaly. CENTRAL NERVOUS SYSTEM: Awake, alert and oriented x 3. No focal deficits. SKIN: No rashes, no itchiness. LYMPHATIC: No peripheral lymphadenopathy. BACK: No deformity, no pressure ulcer. GENITOURINARY: Thomas catheter. Does have scrotal wall cellulitis. Right testicle is swollen, tender. LABORATORY DATA: Sodium 135, potassium 4.3, BUN 45, creatinine 2.3. WBC 15.5, hemoglobin 9.0, platelet 411. Urinalysis, too numerous to count. ASSESSMENT: 1. Anemia 2. Leukocytosis 3. Urinary tract infection 4. Right orchitis status post surgery with the patient have wound VAC in place. 5. Diabetes mellitus 6. Acute on chronic renal failure. Plan 1. Peripheral blood smear showed red blood cells to be microcytic hypochromic red blood cell consistent with iron deficiency anemia. There was no fragment cell or schistocyte. There is no teardrop cell. There is no rouleaux phenomena. There is no pelger-Huet cell. White blood cell with no blasts. Platelet was normal in morphology and count. 2. There was hypersegmented neutrophils. This patient to be started on folic acid 1 mg p.o. daily and vitamin B12 1000 mcg p.o. daily. 3. Iron deficiency anemia with the patient could be started on IV iron. Patient to receive IV iron while in the hospital daily. 4. This patient will need oral iron supplement every other day for at least 6 months. 5. Continue antibiotic treatment as per infectious disease specialist. 6. Continue care of her surgery. LAB RESULTS 08/09/24 12:22: Whole Blood Glucose 257H 08/09/24 05:44: White Blood Count 10.5, Red Blood Count 3.84L, Hemoglobin 9.2L, Hematocrit 29.6L, Mean Corpuscular Volume 77.1L, Mean Corpuscular Hemoglobin 24.0L, Mean Corpuscular Hemoglobin Concent 31.1L, Red Cell Distribution Width 15.2, Platelet Count 608H, Mean Platelet Volume 9.1, Immature Granulocyte % (Auto) 0.8, Neutrophils (%) (Auto) 66.2, Lymphocytes (%) (Auto) 25.8, Monocytes (%) (Auto) 5.1, Eosinophils (%) (Auto) 1.5, Basophils (%) (Auto) 0.6, Neutrophils # (Auto) 7.0, Lymphocytes # (Auto) 2.7, Monocytes # (Auto) 0.5, Eosinophils # (Auto) 0.16, Basophils # (Auto) 0.06, Absolute Immature Granulocyte (auto 0.08, Nucleated Red Blood Cells 0.0, Sodium Level 138, Potassium Level 4.3, Chloride Level 106, Carbon Dioxide Level 26, Blood Urea Nitrogen 46H, Creatinine 1.4H, Glomerular Filtration Rate Calc 62, Random Glucose 245H, Total Calcium 8.4L, Total Bilirubin 0.1L, Aspartate Amino Transf (AST/SGOT) 32, Alanine Aminotransferase (ALT/SGPT) 38, Alkaline Phosphatase 194H, Total Protein 7.0, Albumin 1.5L 08/08/24 04:53: Platelet Morphology Comment See comments Laboratory Tests Test 08/08/24 16:02 08/08/24 20:34 08/09/24 05:24 08/09/24 05:44 Whole Blood Glucose 179 MG/DL (70-110) H 208 MG/DL (70-110) H 234 MG/DL (70-110) H White Blood Count 10.5 K/uL (4.8-10.8) Red Blood Count 3.84 MIL/uL (4.50-6.20) L Hemoglobin 9.2 g/dL (14.0-18.0) L Hematocrit 29.6 % (42-54) L Mean Corpuscular Volume 77.1 fL (79-99) L Mean Corpuscular Hemoglobin 24.0 pg (27.0-33.0) L Mean Corpuscular Hemoglobin Concent 31.1 g/dL (32.0-36.0) L Red Cell Distribution Width 15.2 % (11.0-15.5) Platelet Count 608 K/uL (130-400) H Mean Platelet Volume 9.1 fL (7.5-10.5) Immature Granulocyte % (Auto) 0.8 % (0-1) Neutrophils (%) (Auto) 66.2 % (40.0-77.0) Lymphocytes (%) (Auto) 25.8 % (21.0-51.0) Monocytes (%) (Auto) 5.1 % (3.0-13.0) Eosinophils (%) (Auto) 1.5 % (0.0-8.0) Basophils (%) (Auto) 0.6 % (0.0-5.0) Neutrophils # (Auto) 7.0 K/uL (1.8-7.7) Lymphocytes # (Auto) 2.7 K/uL (1.0-4.8) Monocytes # (Auto) 0.5 K/uL (0.1-1.0) Eosinophils # (Auto) 0.16 K/uL (0.00-0.70) Basophils # (Auto) 0.06 K/uL (0.00-0.20) Absolute Immature Granulocyte (auto 0.08 K/uL (0-1) Nucleated Red Blood Cells 0.0 % (0.0-0.19) Sodium Level 138 mmol/L (136-145) Potassium Level 4.3 mmol/L (3.5-5.1) Chloride Level 106 mmol/L (101-111) Carbon Dioxide Level 26 mmol/L (21-32) Blood Urea Nitrogen 46 mg/dL (7-18) H Creatinine 1.4 mg/dL (0.5-1.3) H Glomerular Filtration Rate Calc 62 mL/min (>90) Random Glucose 245 mg/dL (70-105) H Total Calcium 8.4 mg/dL (8.5-10.1) L Total Bilirubin 0.1 mg/dL (0.2-1.0) L Aspartate Amino Transf (AST/SGOT) 32 U/L (10-37) Alanine Aminotransferase (ALT/SGPT) 38 U/L (12-78) Alkaline Phosphatase 194 U/L (50-136) H Total Protein 7.0 g/dL (6.0-8.3) Albumin 1.5 g/dL (3.5-5.0) L Test 08/09/24 12:22 Whole Blood Glucose 257 MG/DL (70-110) H ABEL MCKAY MD Aug 09, 2024 13:59
--- NOTE | 2024-08-09 14:00 | NUR ---
NEW ORDER PRIOR TO DISCHARGE New order received for medication administration prior to discharge. Medication not available in [employer]. Pharmacy contacted. Pending delivery.
--- NOTE | 2024-08-09 15:00 | NUR ---
PENDING MEDICATION FROM PHARMACY Medication still unavailable in [employer]. Charge nurse notified and pharmacy contacted again.
[2024-08-09 16:00] VITALS: BP 152/72; PULSE 80; RESP 18; TEMP 98.1
--- NOTE | 2024-08-09 17:23 | NUR ---
DISCHARGE REPORT REPORT GIVEN TO FER CHAIREZ IN [facility] AT THIS TIME.
[2024-08-09 19:00] VITALS: BP 136/76; PULSE 77; RESP 20; TEMP 97.7
--- NOTE | 2024-08-09 20:58 | NUR ---
AWAITING TRANSFER Transfer documentation faxed x 4 times to EMS @ [phone]. Confirmation fax received. Phone call received from EMS to re-fax, send one page at a time. Information re-faxed as requested. Phone call placed for confirmation of receipt.
--- NOTE | 2024-08-09 21:19 | PN ---
INFECTIOUS DISEASE PROGRESS NOTE Date of Service: Aug 09, 2024 SUBJECTIVE: This is a 49-year-old male patient presented to the hospital with chief complaint of right testicle pain. A scrotal ultrasound done on admission showed mild right epididymal orchitis. Patient was seen and examined at bedside in room 317. Patient is awake, alert and oriented x 3. Patient is afebrile, temperature is 98.1. Patient will be transferred to [facility] today. Per report the wound VAC will be changed at [facility] today. Continues on fluconazole, doxycycline and Meropenem. No other issues reported by nursing. PHYSICAL EXAM EYES: Anicteric. Pupils equal and reactive. Right eye blindness. HENT: No oral thrush seen, moist Oral mucosa. NECK: Supple, no JVD or thyromegaly. LUNGS: Good air entry. No rales, no rhonchi. CARDIOVASCULAR: S1, S2 regular. No murmur heard. ABDOMEN: Soft, non tender, bowel sounds present, no organomegaly. CENTRAL NERVOUS SYSTEM: Awake, alert, oriented x 3. SKIN: No rashes, no swelling. LYMPHATICS: No peripheral lymphadenopathy. MUSCULOSKELETAL: No joint swelling, erythema or tenderness. EXTREMITIES: No cyanosis or clubbing. 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 BACK: No deformity, no pressure ulcer. GENITOURINARY: No dysuria or hematuria. Thomas catheter. SCROTUM: Right Scrotal abscess, status post I&D with wound VAC placement. Vital Sign (Last 12 Hours) 08/09/24 08/09/24 08/09/24 12:00 16:00 19:00 Temp 98.4 98.1 97.7 Pulse 100 80 77 Resp 18 18 20 B/P (MAP) 116/76 152/72 136/76 Pulse Ox 93 96 O2 Delivery Room Air Room Air Room Air Intake & Output (last 24hrs) 08/08/24 08/08/24 08/09/24 15:00 23:00 07:00 Intake Total 460 ml 240 ml Output Total 600 ml 1700 ml 3700 ml Balance -140 ml -1460 ml -3700 ml LABS: Laboratory: Test 08/09/24 19:33 08/09/24 05:44 08/08/24 04:53 Range/Units Whole Blood Glucose 176 H 70-110 MG/DL White Blood Count 10.5 4.8-10.8 K/uL Red Blood Count 3.84 L 4.50-6.20 MIL/uL Hemoglobin 9.2 L 14.0-18.0 g/dL Hematocrit 29.6 L 42-54 % Mean Corpuscular Volume 77.1 L 79-99 fL Mean Corpuscular Hemoglobin 24.0 L 27.0-33.0 pg Mean Corpuscular Hemoglobin Concent 31.1 L 32.0-36.0 g/dL Red Cell Distribution Width 15.2 11.0-15.5 % Platelet Count 608 H 130-400 K/uL Mean Platelet Volume 9.1 7.5-10.5 fL Immature Granulocyte % (Auto) 0.8 0-1 % Neutrophils (%) (Auto) 66.2 40.0-77.0 % Lymphocytes (%) (Auto) 25.8 21.0-51.0 % Monocytes (%) (Auto) 5.1 3.0-13.0 % Eosinophils (%) (Auto) 1.5 0.0-8.0 % Basophils (%) (Auto) 0.6 0.0-5.0 % Neutrophils # (Auto) 7.0 1.8-7.7 K/uL Lymphocytes # (Auto) 2.7 1.0-4.8 K/uL Monocytes # (Auto) 0.5 0.1-1.0 K/uL Eosinophils # (Auto) 0.16 0.00-0.70 K/uL Basophils # (Auto) 0.06 0.00-0.20 K/uL Absolute Immature Granulocyte (auto 0.08 0-1 K/uL Nucleated Red Blood Cells 0.0 0.0-0.19 % Sodium Level 138 136-145 mmol/L Potassium Level 4.3 3.5-5.1 mmol/L Chloride Level 106 101-111 mmol/L Carbon Dioxide Level 26 21-32 mmol/L Blood Urea Nitrogen 46 H 7-18 mg/dL Creatinine 1.4 H 0.5-1.3 mg/dL Glomerular Filtration Rate Calc 62 >90 mL/min Random Glucose 245 H 70-105 mg/dL Total Calcium 8.4 L 8.5-10.1 mg/dL Total Bilirubin 0.1 L 0.2-1.0 mg/dL Aspartate Amino Transf (AST/SGOT) 32 10-37 U/L Alanine Aminotransferase (ALT/SGPT) 38 12-78 U/L Alkaline Phosphatase 194 H 50-136 U/L Total Protein 7.0 6.0-8.3 g/dL Albumin 1.5 L 3.5-5.0 g/dL Platelet Morphology Comment See comments ASSESSMENT: Scrotal wall abscess with cellulitis, status post I&D and debridement of the right scrotal abscess with a wound VAC application on 08/01/2024. Right epididymal orchitis Urinary tract infection with yeast species. Leukocytosis. Acute renal failure. Diabetes mellitus. PLAN: Continue on Meropenem. Continue on fluconazole. Continue on doxycycline. Wound care as recommended by Urology. Continue pain management. Continue monitoring glucose levels. Patient has been approved to LTAC.for wound management and IV antibiotic therapy. This case was reviewed and discussed with my supervising physician and the above assessment and plan was formulated and agreed upon. ATTESTATION BY PHYSICIAN I have seen and examined the patient. I reviewed the documentation, medical decision making, and treatment plan as noted by the mid-level provider above. I agree with the findings and plan of care. GRANT SUMMERS MD, [facility] [place] Aug 09, 2024 21:19
--- NOTE | 2024-08-09 21:43 | NUR ---
EMS TRANSFER IN PROCESS EMS arrived for transfer of patient to [facility]. Discharge instructions provided to patient. Belongings taken with patient. Transferred via stretcher to EMS.
== END 2024-08-09 21:40 | DRG 853 ==
LOC: EDH 21:06 → EDHIP 07-27 02:21 → 3CH 07-27 03:01 → 3DH 08-05 13:53
PROVIDERS: ADMIT Internal Medicine; ATTEND Internal Medicine
PROC: 0JBB0ZZ Excision of Perineum Subcutaneous Tissue and Fascia, Open Approach (ICD-10-PCS; principal; 2024-08-01 12:00)
DX: A41.9 Sepsis, unspecified organism (principal); E43 Unspecified severe protein-calorie malnutrition; N17.9 Acute kidney failure, unspecified; E87.20 Acidosis, unspecified; N39.0 Urinary tract infection, site not specified; L02.215 Cutaneous abscess of perineum; K61.1 Rectal abscess; E11.22 Type 2 diabetes mellitus with diabetic chronic kidney disease; D63.1 Anemia in chronic kidney disease; I12.9 Hypertensive chronic kidney disease with stage 1 through stage 4 chronic kidney disease, or unspecified chronic kidney disease; D75.839 Thrombocytosis, unspecified; E78.00 Pure hypercholesterolemia, unspecified; N18.9 Chronic kidney disease, unspecified; E83.42 Hypomagnesemia; E11.65 Type 2 diabetes mellitus with hyperglycemia; I25.10 Atherosclerotic heart disease of native coronary artery without angina pectoris; D50.9 Iron deficiency anemia, unspecified; E11.51 Type 2 diabetes mellitus with diabetic peripheral angiopathy without gangrene; H54.61 Unqualified visual loss, right eye, normal vision left eye; K21.9 Gastro-esophageal reflux disease without esophagitis; N45.3 Epididymo-orchitis; Z82.49 Family history of ischemic heart disease and other diseases of the circulatory system; Z82.5 Family history of asthma and other chronic lower respiratory diseases; Z83.3 Family history of diabetes mellitus; Z87.441 Personal history of nephrotic syndrome; Z89.612 Acquired absence of left leg above knee; Z87.891 Personal history of nicotine dependence; Z95.5 Presence of coronary angioplasty implant and graft; Z68.34 Body mass index [BMI] 34.0-34.9, adult
CPT/HCPCS: 36415; 36600; 76870; 80048; 80053; 80061; 81001; 82140; 82306; 82570; 82607; 82728; 82803; 82948; 83036; 83540; 83550; 83605; 83735; 83930; 84100; 84145; 84156; 84443; 84550; 85025; 85027; 85610; 85651; 85730; 86140; 86850; 86900; 86901; 86923; 87040; 87070; 87076; 87086; 87491; 87591; 88304; 93971; 99285; A4344; G0378; J0696; J1100; J1171; J1450; J1756; J1815; J1885; J2003; J2185; J2371; J2405; J2543; J2704; J3010; J3475; J3480; J3490; J7030; J7050; 3370; A4216; A4222; A4223; A4600; A4649; A6210; A9272; J3370

== ENCOUNTER 2024-12-15 09:56 | Inpatient (IN) | payer OTHER ==
[~2024-12-15] VITALS: Ht 180.3 cm; Wt 119.8 kg
[~2024-12-15 09:56] MED LIST changes: -ALOG6.252 PO; -ASPI-1197 PO; -BENZ-226 PO; -CANA300T PO; -CLOP-31 PO; +CLOT15CR23 TP; +DAPA5TAB PO; -DOCU100P MC; -FAMO20TA8 PO; +FERS325 PO; -LISI20TA24 PO; -METF100P3 MC; -SENN8.6T32 PO; -SITA1TAB6 PO
[2024-12-15 10:24] LABS: IMMATURE GRANULOCYTE ABSOLUTE 0.09 K/uL (0-1); NUCLEATED RED BLOOD CELLS 0.0 % (0.0-0.19); PLATELET COUNT (AUTO) 454 K/uL (130-400); RED BLOOD CELL COUNT(AUTO) 4.35 MIL/uL (4.50-6.20); RED CELL DISTRIBUTION WIDTH 13.3 % (11.0-15.5); WHITE BLOOD COUNT (AUTO) 18.6 K/uL (4.8-10.8)
[2024-12-15 10:37] LABS: CREATININE 3.4 mg/dL (0.5-1.3); GLOMERULAR FILTR. RATE CALC 21.0 mL/min (>90); SODIUM SERUM 127.0 mmol/L (136-145); UREA NITROGEN, BLOOD 69.0 mg/dL (7-18)
--- NOTE | 2024-12-15 10:41 | NUR ---
BLADDER SCANNED PATIENT AND IS RETAINING 423 CC OF URINE, NYLA LYONS MADE AWARE
[2024-12-15 10:44] LABS: BAND NEUTROPHILS % (MANUAL) 12 % (0-2); LYMPHOCYTES % (MANUAL) 15 % (22-44); MAN.DIFF COMMENT-IMPRESSION MANUAL DIFFERENTIAL; MONOCYTES % (MANUAL) 9 % (2-9); SEGMENTED NEUTROPHILS % 64 % (40-70)
[2024-12-15 10:45] LABS: PLATELET MORPHOLOGY COMMENT SLIGHT INCREASED; WBC MORPHOLOGY CONSISTENT W/DIFF
[2024-12-15 10:54] LABS: GLUCOSE,RANDOM 438.0 mg/dL (70-105)
[2024-12-15] MEDS ORDERED: VANCOMYCIN PROTOCOL PER PHARMACY IV SCH (11:00)
[2024-12-15] MEDS: 0.9%NACL 1000ML 1,000 ML IV ONE (11:33)
[2024-12-15] MEDS: VANCOMYCIN 1G/250ML KIT 250 ML IV ONE (11:51)
--- NOTE | 2024-12-15 12:26 | HMCIMG ---
EXAM: US Scrotum. CLINICAL HISTORY: TESTICULAR PAIN/SWELLING TECHNIQUE: Real-time ultrasound of the scrotum with color Doppler and image documentation. COMPARISON: Study dated 07/29. FINDINGS: RIGHT TESTICLE: Normal in size (3.3 cm x 1.5 cm x 2.4 cm) and echogenicity, no abnormal mass. Mildly reduced Doppler flow. LEFT TESTICLE: Normal in size (3.6 cm x 1.4 cm x 2.1 cm) and echogenicity, no abnormal mass. Normal Doppler flow. EPIDIDYMIDES: Within normal limits in size and vascularity. A 3 x 3 x 3 mm cyst along the head of the right epididymis. SCROTUM: There is significant improvement of previously documented abscess measuring 2.5 x 2.2 cm along the right scrotal wall (6 mm). No hydrocele, varicocele seen. IMPRESSION: 1. Scrotal wall abscess along the right side, measuring 2.5 x 2.2 cm, showing significant improvement/reduction in size. 2. Mildly reduced blood flow to the right testicle. Clinical correlation is advised for possible intermittent right testicular torsion. /[place]
--- NOTE | 2024-12-15 12:50 | HMCIMG ---
EXAM: CR Chest, 1 View. CLINICAL HISTORY: SEPSIS COMPARISON: None provided. FINDINGS: LUNGS: There is no mass, infiltrate, or acute pulmonary abnormality. Mild bibasilar atelectasis. PLEURAL SPACES: No pleural effusion or pneumothorax. MEDIASTINUM: The cardiomediastinal silhouette is within normal limits. BONES: No acute osseous abnormality. IMPRESSION: No acute cardiopulmonary pathology is evident. /[place]
--- NOTE | 2024-12-15 12:53 | ERN ---
General Chief Complaint: Testicular Injury/Pain Stated Complaint: TESTICULAR SWELLING Time Seen by MD: 10:03 History of Present Illness Initial Comments 49 y/o male came in for fever and scrotum swelling. Allergies: Coded Allergies: morphine (Unverified Allergy, Intermediate, HALLUCINATIONS, 02/13/23) Home Meds Reported Medications Dapagliflozin Propanediol (Farxiga) 5 Mg Tablet, 1 TAB PO DAILY for 30 Days, #30 TAB 0 Refills 07/27/24 Ferrous Sulfate (Ferrous Sulfate) 325 Mg (65 Mg Iron) Ectab, 1 TAB PO DAILY for 30 Days, #30 TAB 0 Refills 07/27/24 Clotrimazole (Clotrimazole) 1 % Cream..g., 1 APPL TP BID for 7 Days, #15 GM 0 Refills apply to affected area(s) 07/27/24 Atorvastatin Calcium (LIPITOR) 40 Mg Tablet, 40 MG PO HS, TAB 12/29/22 Gabapentin (Gabapentin) 100 Mg Capsule, 100 MG PO BID, CAP 12/29/22 Past Medical History Past Medical History: Diabetes-Type II, High Cholesterol, Heart Disease, Hypertension Medical History Other: PAD, SORE ON FOOT, Past Surgical History: Cholecystectomy, Unknown Surgical History Other: STENTS HEART AND LEG. 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 Social History Social History: Negative, Lives in Shelter ROS Dictation fever Physical Exam Physical Exam Dictation There is extensive swelling in scrotum with tenderness on palpation Results Laboratory and Microbiology Lab and Micro Result Laboratory Tests Test 12/15/24 10:10 12/15/24 11:47 White Blood Count 18.6 K/uL (4.8-10.8) H Red Blood Count 4.35 MIL/uL (4.50-6.20) L Hemoglobin 11.0 g/dL (14.0-18.0) L Hematocrit 34.2 % (42-54) L Mean Corpuscular Volume 78.6 fL (79-99) L Mean Corpuscular Hemoglobin 25.3 pg (27.0-33.0) L Mean Corpuscular Hemoglobin Concent 32.2 g/dL (32.0-36.0) Red Cell Distribution Width 13.3 % (11.0-15.5) Platelet Count 454 K/uL (130-400) H Mean Platelet Volume 10.0 fL (7.5-10.5) Immature Granulocyte % (Auto) 0.5 % (0-1) Neutrophils (%) (Auto) 82.5 % (40.0-77.0) H Lymphocytes (%) (Auto) 9.7 % (21.0-51.0) L Monocytes (%) (Auto) 6.9 % (3.0-13.0) Eosinophils (%) (Auto) 0.1 % (0.0-8.0) Basophils (%) (Auto) 0.3 % (0.0-5.0) Neutrophils # (Auto) 15.3 K/uL (1.8-7.7) H Lymphocytes # (Auto) 1.8 K/uL (1.0-4.8) Monocytes # (Auto) 1.3 K/uL (0.1-1.0) H Eosinophils # (Auto) 0.01 K/uL (0.00-0.70) Basophils # (Auto) 0.05 K/uL (0.00-0.20) Absolute Immature Granulocyte (auto 0.09 K/uL (0-1) Segmented Neutrophils % 64 % (40-70) Band Neutrophils % 12 % (0-2) H Lymphocytes % (Manual) 15 % (22-44) L Monocytes % (Manual) 9 % (2-9) Nucleated Red Blood Cells 0.0 % (0.0-0.19) Differential Comment MANUAL DIFFERENTIAL White Cell Morphology Comment CONSISTENT W/DIFF Platelet Morphology Comment SLIGHT INCREASED Red Blood Cell Morphology See comments Sodium Level 127 mmol/L (136-145) L Potassium Level 4.8 mmol/L (3.5-5.1) Chloride Level 93 mmol/L (101-111) L Carbon Dioxide Level 21 mmol/L (21-32) Blood Urea Nitrogen 69 mg/dL (7-18) H Creatinine 3.4 mg/dL (0.5-1.3) H Glomerular Filtration Rate Calc 21 mL/min (>90) Random Glucose 438 mg/dL (70-105) *H Lactic Acid Level 1.9 mmol/L (0.8-2.5) Total Calcium 8.8 mg/dL (8.5-10.1) Magnesium Level 1.80 mg/dL (1.80-2.40) Troponin I High Sensitivity 6 ng/L (4-75) Whole Blood Glucose 451 MG/DL (70-110) *H Bedside Glucose Comment Notified Nurse MDM Pt admitted to hospitalist with urology consult ED Course Orders Procedure Category Date Status Time Cbc With Differential LAB 12/15/24 Complete 10:13 Basic Metabolic Panel LAB 12/15/24 Complete 10:13 Lactic Acid LAB 12/15/24 Complete 10:13 Urinalysis Profile LAB 12/15/24 Logged 10:13 Us Scrotum & Contents US 12/15/24 Resulted 10:13 12 Lead Ekg Tracing- EKG 12/15/24 Logged Technical 10:32 Blood Cult RONY 12/15/24 In Process 10:32 Troponin I High LAB 12/15/24 Complete Sensitivity 10:32 Magnesium LAB 12/15/24 Complete 10:32 Chest 1vw RAD 12/15/24 Resulted 10:32 Acetaminophen 500mg PHA 12/15/24 Complete Tab (Tylenol 500mg T 11:00 0.9%Nacl 1000ml (Ns PHA 12/15/24 Complete 1000ml) 11:00 Manual Differential LAB 12/15/24 Complete 10:10 Vancomycin Protocol PHA 12/15/24 In Process (Vancomycin Protocol 11:00 Cefepime Hcl 1 Gm PHA 12/15/24 Complete Vial (Maxipime 1 Gm Vi 11:00 Vancomycin 1g/250ml PHA 12/15/24 In Process Kit (Vancomycin 1g/2 11:00 Ct Abdomen/Pelvis W/O CT 12/15/24 Taken Contrast 10:40 Insulin Regular, PHA 12/15/24 Complete Human 3ml (Humulin R 11:30 Vancomycin 1.5 Gm/250 PHA 12/17/24 In Process Ml Bag (Vancomycin 11:00 Vancomycin Trough LAB 12/19/24 Verified 10:00 Current Medications Medications (Trade) Dose Ordered Sig/Gaby Route PRN Reason Start Time Stop Time Status Last Admin Dose Admin Acetaminophen (TYLenol 500MG TAB) 1,000 mg ONCE ONCE PO 12/15/24 11:00 12/15/24 11:01 DC 12/15/24 11:13 Cefepime HCl (MAXipime 1 GM vial) 1 gm ONCE ONCE IVPB 12/15/24 11:00 12/15/24 11:01 DC 12/15/24 11:37 Insulin Human Regular (humuLIN R 100 UNIT/ML 3ML) 10 unit ONCE ONCE IV 12/15/24 11:30 12/15/24 11:31 DC 12/15/24 11:48 Sodium Chloride 1,000 ml @ 0 mls/hr ONCE ONCE IV 12/15/24 11:00 12/15/24 11:01 DC 12/15/24 11:33 Vancomycin HCl 250 ml @ 125 mls/hr ONCE ONCE IV 12/15/24 11:00 12/15/24 12:59 12/15/24 11:51 Vancomycin HCl 250 ml @ 125 mls/hr Q48H IV 12/17/24 11:00 12/27/24 10:59 Vancomycin HCl (Vancomycin Protocol) 1 each AD IV 12/15/24 11:00 12/29/24 10:59 Vital Signs Date Time Temp Pulse Resp B/P (MAP) Pulse Ox O2 Delivery O2 Flow Rate FiO2 12/15/24 12:34 100.0 102 23 120/70 95 Room Air* 0 12/15/24 11:13 100.6 12/15/24 10:28 100.6 101 22 103/57 97 Room Air* 0 12/15/24 10:03 97.9 100 20 98/68 99 Room Air DX & DISP Disposition: Inpatient Departure Impression: Primary Impression: Cellulitis of scrotum Additional Impressions: GEOVANNI (acute kidney injury), Testicular abscess Condition: Stable Referrals: TORITO DAIVS MD (PCP) RAIN HOFFMANN MD Dec 15, 2024 12:53
[2024-12-15] MEDS ORDERED: INSU3INS3 SQ (13:02)
[2024-12-15] MEDS ORDERED: TAMS-55 PO (13:02)
[2024-12-15] MEDS ORDERED: CLOP75TA32 PO (13:02)
[2024-12-15] MEDS ORDERED: SENN-216 PO (13:02)
[2024-12-15] MEDS ORDERED: INSU100I56 SQ (13:02)
[2024-12-15] MEDS ORDERED: LOSA50TA64 PO (13:02)
[2024-12-15] MEDS ORDERED: ASPI-1443 PO (13:02)
[2024-12-15] MEDS ORDERED: SITA1TAB6 PO (13:02)
--- NOTE | 2024-12-15 13:03 | NUR ---
inserted 16 vincentian barkley, 450cc output, no complications patient resting in bed, call light in reach
[2024-12-15] MEDS ORDERED: PHARMACY COMMUNICATION MISC SCH (13:30)
[2024-12-15] MEDS ORDERED: DEXTROSE 50%-WATER 50 ML DISP.SYRIN IV PRN (13:30)
[2024-12-15] MEDS ORDERED: GLUCAGON 1MG KIT 1 MG ML IM PRN (13:30)
[2024-12-15 13:46] LABS: ADD UA MICROSCOPIC YES; APPEARANCE,URINE TURBID (CLEAR); GLUCOSE, URINE (UA) TRACE mg/dL (NEGATIVE); LEUKOCYTE ESTERASE ,URINE 500 Leu/uL (NEGATIVE); NITRATE,URINE NEGATIVE (NEGATIVE); OCCULT BLOOD,URINE SMALL (NEGATIVE)
--- NOTE | 2024-12-15 13:47 | EKG ---
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
--- NOTE | 2024-12-15 14:00 | HMCIMG ---
EXAM: CT Abdomen and Pelvis Without IV contrast CLINICAL HISTORY: urinary retention, testicular swelling wo per provider TECHNIQUE: Axial computed tomography images of the abdomen and pelvis without intravenous contrast. CONTRAST: No IV contrast. COMPARISON: Soniya dated 02/08/23 FINDINGS: LUNG BASES: There are atelectatic bands within the bilateral lower lobes. LIVER: Unremarkable. GALLBLADDER AND BILE DUCTS: Post cholecystectomy status with surgical clips in situ. PANCREAS: Unremarkable. SPLEEN: Unremarkable. ADRENAL GLANDS: Unremarkable. KIDNEYS, URETERS, AND BLADDER: There is marked concentric bladder wall thickening, more pronounced posteriorly, with perivesicular fat stranding likely reflecting cystitis. There is reflux within the bilateral ureters resulting in severe bilateral hydronephrosis and also bilateral perinephric fat stranding reflecting pyelonephritis. There is no radiopaque calculus appreciated. STOMACH AND BOWEL: Unremarkable appearance of the stomach and bowel. No evidence of bowel obstruction. No evidence suggesting enteritis or colitis. APPENDIX: No evidence of acute appendicitis on CT examination. PERITONEUM: Small 7 mm fat-containing umbilical hernia. LYMPH NODES: No lymphadenopathy is evident. REPRODUCTIVE: A well-defined hypodense collection along the right penoscrotal region, measuring 6 x 5.1 cm, concerning for abscess. VASCULATURE: Atherosclerotic changes of the abdominal aorta. BONES: No aggressive appearing osseous lesion. No acute osseous pathology evident. IMPRESSION: 1. Severe bilateral hydronephrosis with pyelonephritis and perinephric fat stranding. 2. Marked bladder wall thickening with perivesicular fat stranding, compatible with cystitis. 3. 6 x 5.1 cm right penoscrotal hypodense collection, concerning for abscess. /[place]
[2024-12-15 14:08] LABS: WBC CLUMP MANY /HPF (0-1)
--- NOTE | 2024-12-15 14:23 | CONS ---
NEPHROLOGY CONSULTATION NOTE Date/Time Patient Seen: Dec 15, 2024 2625 Reason for Consultation: Fever, scrotal swelling, renal failure HISTORY OF PRESENT ILLNESS: This is a 49-year-old male with a past medical history of diabetes mellitus type 2, hypertension, peripheral arterial disease with left AKA, coronary artery disease, hyperlipidemia, GERD, PAD, and obesity Patient presented to the emergency room for fever and scrotum swelling. Thomas in place due to urinary retention Blood and urine cultures have been collected, pending results Continues on broad-spectrum antibiotics. Were consulted for renal failure. Renal function remains elevated Electrolytes are stable. UA positive for proteinuria. Hemoglobin noted Patient was seen in the emergency, in no acute distress No family at the bedside Prognosis remains guarded REVIEW OF SYSTEMS: GENERAL: Positive for fever and scrotum swelling. NEUROLOGIC: Negative for any blurry vision, blind spots, double vision, facial asymmetry, dysphagia, dysarthria, hemiparesis, hemisensory deficits, vertigo, ataxia. HEENT: Negative for any head trauma, neck trauma, neck stiffness, photophobia, phonophobia, sinusitis, rhinitis. CARDIAC: Negative for any chest pain, dyspnea on exertion, paroxysmal nocturnal dyspnea, peripheral edema. PULMONARY: Negative for any shortness of breath, wheezing, COPD, or TB exposure. GASTROINTESTINAL: Negative for any abdominal pain, nausea, vomiting, bright red blood per rectum, melena. GENITOURINARY: Negative for any dysuria, hematuria, incontinence. INTEGUMENTARY: Negative for any rashes, cuts, insect bites. RHEUMATOLOGIC: Negative for any joint pains, photosensitive rashes, history of vasculitis or kidney problems. HEMATOLOGIC: Negative for any abnormal bruising, frequent infections or bleeding. PAST MEDICAL HISTORY: Diabetes mellitus type 2 Hypertension Hyperlipidemia GERD PAD Coronary artery disease Obesity PAST SURGICAL HISTORY: Left AKA PAST SOCIAL HISTORY: Former smoker Denies any use of alcohol or illicit drugs FAMILY HISTORY: Noncontributory PHYSICAL EXAM: GENERAL: Alert and oriented x 3. No acute distress. Well-nourished. EYES: EOMI. Anicteric. HENT: Moist mucous membranes. No scleral icterus. No cervical lymphadenopathy. LUNGS: Clear to auscultation bilaterally. No accessory muscle use. CARDIOVASCULAR: Regular rate and rhythm. No murmur. No JVD. ABDOMEN: Soft, non-tender and non-distended. No palpable masses. EXTREMITIES: No edema. Non-tender. SKIN: No rashes or lesions. Warm. NEUROLOGIC: No focal neurological deficits. CN II-XII grossly intact, but not i ndividually tested. PSYCHIATRIC: Cooperative. Appropriate mood and affect. MEDICATIONS: [ ] Current Medications Medications (Trade) Dose Ordered Sig/Gaby Route PRN Reason Start Time Stop Time Status Last Admin Dose Admin Atorvastatin Calcium (LIPItor 40MG) 40 mg HS PO 12/15/24 21:00 01/14/25 20:59 UNV Dextrose (D50w) 50 ml AD PRN IV HYPOGLYCEMIA PROTOCOL 12/15/24 13:30 01/14/25 13:29 Famotidine (Pepcid 20mg Vial) 20 mg DAILY IV 12/16/24 09:00 01/15/25 08:59 UNV Glucagon (Glucagon 1mg Kit) 1 mg AD PRN IM HYPOGLYCEMIA PROTOCOL 12/15/24 13:30 01/14/25 13:29 Hydromorphone HCl (DiLAUDid 0.5MG INJ) 0.2 mg Q6H PRN IVP SEVERE PAIN (7-10) 12/15/24 13:30 12/20/24 13:29 UNV Insulin Human Regular (humuLIN R 100 UNIT/ML 3ML) INSULIN SLIDING SCAL... ACHS SQ 12/15/24 16:30 01/14/25 16:29 Miscellaneous Medication (Ferrous Sulfate ) 1 tab DAILY PO 12/16/24 09:00 01/15/25 08:59 UNV Miscellaneous Medication (Sennosides/ Docusate Sodium (Colace 2-in-1 Tablet)) 1 each DAILY PO 12/16/24 09:00 01/15/25 08:59 UNV Pharmacy Profile Note (Pharmacy Communication) 1 each ONCE MISC 12/15/24 13:30 12/22/24 13:29 UNV Sodium Chloride 1,000 ml @ 75 mls/hr [id number] IV 12/15/24 13:30 01/14/25 13:29 UNV Tamsulosin HCl (FloMAX) 0.4 mg DAILY PO 12/16/24 09:00 01/15/25 08:59 UNV Vancomycin HCl 250 ml @ 125 mls/hr Q48H IV 12/17/24 11:00 12/15/24 13:19 DC Vancomycin HCl (Vancomycin Protocol) 1 each AD IV 12/15/24 11:00 12/29/24 10:59 Vital Signs (last 8hr) Date Time Temp Pulse Resp B/P (MAP) Pulse Ox O2 Delivery O2 Flow Rate FiO2 12/15/24 12:34 100.0 102 23 120/70 95 Room Air* 0 21 12/15/24 11:13 100.6 12/15/24 10:28 100.6 101 22 103/57 97 Room Air* 0 12/15/24 10:03 97.9 100 20 98/68 99 Room Air DIAGNOSTICS / RADIOLOGY: [place] [id number] [id number] IMAGING REPORT Signed PATIENT: ASHA SUERO MR#: [id number] : 1975 SEX: M AGE: 49 LOCATION: [facility] ORDER [id number] STATUS: REG ER REPORT#: [id number] SERVICE 1032 REASON: SEPSIS ORDERING PHYSICIAN: NYLA MORALES PROCEDURE: CXR1VW - CHEST 1VW EXAM: CR Chest, 1 View. CLINICAL HISTORY: SEPSIS COMPARISON: None provided. FINDINGS: LUNGS: There is no mass, infiltrate, or acute pulmonary abnormality. Mild bibasilar atelectasis. PLEURAL SPACES: No pleural effusion or pneumothorax. MEDIASTINUM: The cardiomediastinal silhouette is within normal limits. BONES: No acute osseous abnormality. IMPRESSION: No acute cardiopulmonary pathology is evident. /[place] DICTATED BY: ALICE LEARY Jr., MD DATE: 12/15/241348 ELECTRONICALLY SIGNED BY: ALICE LEARY Jr., MD DATE: 12/15/24 134 PATIENT: ASHA SUERO MR#: [id number] : 1975 SEX: M AGE: 49 LOCATION: [facility] ORDER [id number] STATUS: REG ER REPORT#: [id number] SERVICE 1013 REASON: TESTICULAR PAIN/SWELLING ORDERING PHYSICIAN: NYLA MORALES PROCEDURE: SCROTUM - US SCROTUM & CONTENTS ADDENDUM REPORT ADDENDUM: Results were shared by telephone at 13:33 pm on 12-15-24 and acknowledged by Nyla Ordonez /[place] EXAM: US Scrotum. CLINICAL HISTORY: TESTICULAR PAIN/SWELLING TECHNIQUE: Real-time ultrasound of the scrotum with color Doppler and image documentation. COMPARISON: Study dated 07/29. FINDINGS: RIGHT TESTICLE: Normal in size (3.3 cm x 1.5 cm x 2.4 cm) and echogenicity, no abnormal mass. Mildly reduced Doppler flow. LEFT TESTICLE: Normal in size (3.6 cm x 1.4 cm x 2.1 cm) and echogenicity, no abnormal mass. Normal Doppler flow. EPIDIDYMIDES: Within normal limits in size and vascularity. A 3 x 3 x 3 mm cyst along the head of the right epididymis. SCROTUM: There is significant improvement of previously documented abscess measuring 2.5 x 2.2 cm along the right scrotal wall (6 mm). No hydrocele, varicocele seen. IMPRESSION: 1. Scrotal wall abscess along the right side, measuring 2.5 x 2.2 cm, showing significant improvement/reduction in size. 2. Mildly reduced blood flow to the right testicle. Clinical correlation is advised for possible intermittent right testicular torsion. /[place] DICTATED BY: ALICE LEARY Jr., MD DATE: 12/15/24 1339 ELECTRONICALLY SIGNED BY: DATE: EXAM: US Scrotum. CLINICAL HISTORY: TESTICULAR PAIN/SWELLING TECHNIQUE: Real-time ultrasound of the scrotum with color Doppler and image documentation. COMPARISON: Study dated 07/29. FINDINGS: RIGHT TESTICLE: Normal in size (3.3 cm x 1.5 cm x 2.4 cm) and echogenicity, no abnormal mass. Mildly reduced Doppler flow. LEFT TESTICLE: Normal in size (3.6 cm x 1.4 cm x 2.1 cm) and echogenicity, no abnormal mass. Normal Doppler flow. EPIDIDYMIDES: Within normal limits in size and vascularity. A 3 x 3 x 3 mm cyst along the head of the right epididymis. SCROTUM: There is significant improvement of previously documented abscess measuring 2.5 x 2.2 cm along the right scrotal wall (6 mm). No hydrocele, varicocele seen. IMPRESSION: 1. Scrotal wall abscess along the right side, measuring 2.5 x 2.2 cm, showing significant improvement/reduction in size. 2. Mildly reduced blood flow to the right testicle. Clinical correlation is advised for possible intermittent right testicular torsion. /[place] DICTATED BY: ALICE LEARY Jr., MD DATE: 12/15/241323 ELECTRONICALLY SIGNED BY: ALICE LEARY Jr., MD DATE: 12/15/241323 LABORATORY: [ ] Hematology Labs: Test 12/15/24 10:10 Range/Units White Blood Count 18.6 H 4.8-10.8 K/uL Red Blood Count 4.35 L 4.50-6.20 MIL/uL Hemoglobin 11.0 L 14.0-18.0 g/dL Hematocrit 34.2 L 42-54 % Mean Corpuscular Volume 78.6 L 79-99 fL Mean Corpuscular Hemoglobin 25.3 L 27.0-33.0 pg Mean Corpuscular Hemoglobin Concent 32.2 32.0-36.0 g/dL Red Cell Distribution Width 13.3 11.0-15.5 % Platelet Count 454 H 130-400 K/uL Mean Platelet Volume 10.0 7.5-10.5 fL Immature Granulocyte % (Auto) 0.5 0-1 % Neutrophils (%) (Auto) 82.5 H 40.0-77.0 % Lymphocytes (%) (Auto) 9.7 L 21.0-51.0 % Monocytes (%) (Auto) 6.9 3.0-13.0 % Eosinophils (%) (Auto) 0.1 0.0-8.0 % Basophils (%) (Auto) 0.3 0.0-5.0 % Neutrophils # (Auto) 15.3 H 1.8-7.7 K/uL Lymphocytes # (Auto) 1.8 1.0-4.8 K/uL Monocytes # (Auto) 1.3 H 0.1-1.0 K/uL Eosinophils # (Auto) 0.01 0.00-0.70 K/uL Basophils # (Auto) 0.05 0.00-0.20 K/uL Absolute Immature Granulocyte (auto 0.09 0-1 K/uL Segmented Neutrophils % 64 40-70 % Band Neutrophils % 12 H 0-2 % Lymphocytes % (Manual) 15 L 22-44 % Monocytes % (Manual) 9 2-9 % Nucleated Red Blood Cells 0.0 0.0-0.19 % Differential Comment MANUAL DIFFERENTIAL White Cell Morphology Comment CONSISTENT W/DIFF Platelet Morphology Comment SLIGHT INCREASED Red Blood Cell Morphology See comments Chemistry Labs: Test 12/15/24 11:47 12/15/24 10:10 Range/Units Whole Blood Glucose 451 *H 70-110 MG/DL Bedside Glucose Comment Notified Nurse Sodium Level 127 L 136-145 mmol/L Potassium Level 4.8 3.5-5.1 mmol/L Chloride Level 93 L 101-111 mmol/L Carbon Dioxide Level 21 21-32 mmol/L Blood Urea Nitrogen 69 H 7-18 mg/dL Creatinine 3.4 H 0.5-1.3 mg/dL Glomerular Filtration Rate Calc 21 >90 mL/min Random Glucose 438 *H 70-105 mg/dL Lactic Acid Level 1.9 0.8-2.5 mmol/L Total Calcium 8.8 8.5-10.1 mg/dL Magnesium Level 1.80 1.80-2.40 mg/dL Troponin I High Sensitivity 6 4-75 ng/L ASSESSMENT: Acute on chronic renal failure Nephrotic syndrome Anemia Urinary retention S/p Thomas catheter Electrolyte derangement Coronary artery disease Uncontrolled Diabetes mellitus type 2 Hyperlipidemia PAD S/p left AKA Severe protein calorie malnutrition Obesity PLAN: Labs, diagnostic, radiologic exams reviewed and interpreted by myself and supervising physician. We have reviewed external records in detail Obtain UA, urine electrolytes, urine creatinine, urine osmolality Start Nephro-Majo daily Require close monitoring of renal function and electrolytes Order CBC, CMP, iron panel, ferritin, TSH, uric acid, serum osmolality and electrolytes in am Continue with antibiotics BiPAP as necessary, for respiratory distress Monitor blood pressure adjust medication doses as needed Avoid hypotensive episodes May use Dilaudid 0.5 mg IV every 6 hours as needed for severe pain Monitor blood sugars Strict intake, output, and daily weight should be monitored Please renally adjust medications Avoid nephrotoxic and nonsteroidal drugs Avoid contrast if possible Will continue to monitor renal function, anemia, electrolytes Treatment plan discussed with patient Questions were answered We have discussed with the other team physicians in detail about the care plan We will continue to monitor the patient closely Thank you for allowing us to participate in the care of this patient ATTESTATION BY PHYSICIAN I have seen and examined the patient. I reviewed the documentation, medical decision making, and treatment plan as noted by the mid-level provider above. I agree with the findings and plan of care. KRUPA MANDEL MD, [facility] Dec 15, 2024 14:23
[2024-12-15 14:24] LABS: CREATININE,URINE RANDOM 88.57 mg/dL (30-135)
[2024-12-15 14:32] LABS: ASPARTATE AMINOTRANSFERASE 17.0 U/L (10-37); LACTATE DEHYDROGENASE 139.0 U/L (81-234); TOTAL PROTEIN, SERUM 7.7 g/dL (6.0-8.3)
--- NOTE | 2024-12-15 14:40 | HP ---
[facility] HISTORY AND PHYSICAL Date of Service: Dec 15, 2024 Time of Service: 14:26 HISTORY OF PRESENT ILLNESS: Date of service: 12/15/2024, patient was seen in ER room 14, 49-year-old male with history of poorly controlled type 2 diabetes mellitus, hypertension, hyperlipidemia, GERD, peripheral arterial disease, history of coronary artery disease with prior history of coronary stenting, peripheral arterial disease with prior history of angioplasty and stenting, morbid obesity, history of scrotal cellulitis with abscess [place] [facility] [place] [facility] Patient presented to the ER for further evaluation of progressive pain, swelling to the right side of the scrotum ongoing for the past three days. Pain is moderate in intensity involving the right hemiscrotum. Patient reports having subjective fevers, chills as well feels. Reports having dysuria and suprapubic discomfort as well. Patient reports that he was previously hospitalized [place] [facility] where he was found to have right epididymo-orchitis. Patient during his hospitalization needed incision and drainage with debridement of right perineal and Ischiorectal abscess tracking into the scrotum by Dr. Choudhury on 08/01/2024. During this hospitalization had urinary retention requiring Thomas catheter placement. Discharged to long-term acute care for further IV antibiotic therapy. Patient denies any active chest pain, nausea, vomiting, or significant abdominal pain. On presentation to the ER, patient was noted to be in urinary retention with Thomas catheter placement yielding about 400 mL of urine. Patient underwent testicular ultrasound which showed findings of right scrotal wall abscess and mildly reduced flow to the right testicle. Patient underwent CT abdomen pelvis without contrast which showed findings of severe bilateral hydronephrosis with pyelonephritis, cystitis, and 3.6 cm x 5.1 cm right penoscrotal hypodense collection concerning for abscess. Patient will be admitted for further treatment and management of sepsis with underlying UTI, scrotal wall cellulitis with abscess, acute kidney injury and severe hyperglycemia. Consultation with Urology will be requested. Patient will be started on broad- spectrum antibiotics and we will see how patient progresses in the next72 hours. REVIEW OF SYSTEMS CONSTITUTIONAL: fevers, chills and malaise NEUROLOGICAL: Denies headache, amaurosis fugax, motor weakness, sensory deficit, vertigo/spinning sensation, gait abnormalities, or tremors. ENT: No hearing loss, otalgia, otorrhea, rhinitis, rhinorrhea, hoarseness, or sore throat. CARDIOVASCULAR: Denies any exertional angina, dyspnea on exertion, orthopnea, paroxysmal nocturnal dyspnea, palpitations, life-threatening arrhythmias, claudication. PULMONARY: Denies any shortness of breath, cough, phlegm/sputum, hemoptysis, pleuritic chest pain. SLEEP: Denies morning headaches, daytime somnolence or napping. Denies difficulty falling asleep, staying asleep, waking from sleep. Denies knowledge of snoring. GASTROINTESTINAL: Denies any type of dysphagia to either liquids or solids. Denies nausea, vomiting, pyrosis, early satiety, abdominal pain, diarrhea, constipation, or changes in stool consistency or caliber. Denies coffee-ground emesis, hematemesis, hematochezia, or melanotic stools. GENITOURINARY: redness, swelling and pain to the right side of the scrotum ENDOCRINOLOGIC: poorly controlled DM II with hyperglycemia HEMATOLOGIC: Denies thrombophilia/previous clots, or coagulopathy/bleeding disorders. ONCOLOGIC: Denies personal history of malignancy. DERMATOLOGIC: redness and swelling to the right richie-scrotum PSYCHIATRIC: Denies any suicidal or homicidal ideation. Denies hallucinations. 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 Choudhury on 07/2024 PAST SOCIAL HISTORY: [Patient lives with his . Patient denies alcohol tobacco and recreational drug use . Patient states he used to smoke cigarette for 17 years two packs per day and quit two years ago] Allergies: Morphine causes headache Home medications: patient reports being on [id number] mg daily, Pzrhdt90 mg daily, Lantus 50 units daily, insulin lispro,5 units b.i.d. p.c., losartan 50 mg daily, Colace daily, Janumet twice daily, Flomax 0.4 mg daily, clotrimazole cream twice daily, ferrous [id number] mg daily, Lipitor 40 mg daily Coded Allergies: morphine (Unverified Allergy, Intermediate, HALLUCINATIONS, 02/13/23) PHYSICAL EXAM GENERAL APPEARANCE: The patient is awake, alert, and oriented, in no acute cardiopulmonary distress. NEUROLOGICAL: Cranial nerves II-XII grossly intact. Motor is 5/5 in bilateral upper and lower extremities proximal to distal. No sensory deficits. HEENT: Face is symmetric. Pupils are equal and reactive. Extraocular movements are intact. NECK: Supple. No JVD. No thyromegaly. No submental, submandibular, pre- /postauricular, occipital or supraclavicular lymphadenopathy. CHEST: Normal chest expansion. No Telemetry. LUNGS: Absence of any rales, rhonchi or any wheezing. CARDIOVASCULAR: Regular. S1 and S2 normal. No appreciable rubs, murmurs or gallops. ABDOMEN: Soft, nontender, and nondistended. There is no rebound, voluntary guarding, or rigidity. : Thomas catheter noted draining cloudy urine, significant redness and swelling noted of the scrotum, mild tenderness to palpation EXTREMITIES: No significant swelling noted Vital Sign (Last 24 Hours) 12/15/24 12:34 Temp 100.0 Pulse 102 Resp 23 B/P (MAP) 120/70 Pulse Ox 95 O2 Delivery Room Air* O2 Flow Rate 0 FiO2 21 LABS: Laboratory: Test 12/15/24 13:42 12/15/24 13:08 12/15/24 11:47 12/15/24 10:10 Range/Units Whole Blood Ketones Quantitative 0.3 0.0-0.6 mmol/L Urine Color YELLOW YELLOW Urine Appearance TURBID CLEAR Urine pH 5.5 5.0-8.0 Urine Specific [place] 1.013 1.001-1.031 Urine Protein 70 H NEGATIVE mg/dL Urine Glucose (UA) TRACE H NEGATIVE mg/dL Urine Ketones NEGATIVE NEGATIVE mg/dL Urine Occult Blood SMALL H NEGATIVE Urine Nitrate NEGATIVE NEGATIVE Urine Bilirubin NEGATIVE NEGATIVE mg/dL Urine Urobilinogen 0.2 0.2-1.0 mg/dL Urine Leukocyte Esterase 500 H NEGATIVE [place]/uL Urine RBC 26-50 H 0-1 /HPF Urine WBC TNTC H 0-1 /HPF Urine WBC Clumps (Auto) MANY 0-1 /HPF Urine Bacteria MANY None Seen /HPF Urine Random Creatinine 88.57 30-135 mg/dL Urine Random Sodium 58 40-220 mmol/l Whole Blood Glucose 451 *H 70-110 MG/DL Bedside Glucose Comment Notified Nurse White Blood Count 18.6 H 4.8-10.8 K/uL Red Blood Count 4.35 L 4.50-6.20 MIL/uL Hemoglobin 11.0 L 14.0-18.0 g/dL Hematocrit 34.2 L 42-54 % Mean Corpuscular Volume 78.6 L 79-99 fL Mean Corpuscular Hemoglobin 25.3 L 27.0-33.0 pg Mean Corpuscular Hemoglobin Concent 32.2 32.0-36.0 g/dL Red Cell Distribution Width 13.3 11.0-15.5 % Platelet Count 454 H 130-400 K/uL Mean Platelet Volume 10.0 7.5-10.5 fL Immature Granulocyte % (Auto) 0.5 0-1 % Neutrophils (%) (Auto) 82.5 H 40.0-77.0 % Lymphocytes (%) (Auto) 9.7 L 21.0-51.0 % Monocytes (%) (Auto) 6.9 3.0-13.0 % Eosinophils (%) (Auto) 0.1 0.0-8.0 % Basophils (%) (Auto) 0.3 0.0-5.0 % Neutrophils # (Auto) 15.3 H 1.8-7.7 K/uL Lymphocytes # (Auto) 1.8 1.0-4.8 K/uL Monocytes # (Auto) 1.3 H 0.1-1.0 K/uL Eosinophils # (Auto) 0.01 0.00-0.70 K/uL Basophils # (Auto) 0.05 0.00-0.20 K/uL Absolute Immature Granulocyte (auto 0.09 0-1 K/uL Segmented Neutrophils % 64 40-70 % Band Neutrophils % 12 H 0-2 % Lymphocytes % (Manual) 15 L 22-44 % Monocytes % (Manual) 9 2-9 % Nucleated Red Blood Cells 0.0 0.0-0.19 % Differential Comment MANUAL DIFFERENTIAL White Cell Morphology Comment CONSISTENT W/DIFF Platelet Morphology Comment SLIGHT INCREASED Red Blood Cell Morphology See comments Sodium Level 127 L 136-145 mmol/L Potassium Level 4.8 3.5-5.1 mmol/L Chloride Level 93 L 101-111 mmol/L Carbon Dioxide Level 21 21-32 mmol/L Blood Urea Nitrogen 69 H 7-18 mg/dL Creatinine 3.4 H 0.5-1.3 mg/dL Glomerular Filtration Rate Calc 21 >90 mL/min Random Glucose 438 *H 70-105 mg/dL Lactic Acid Level 1.9 0.8-2.5 mmol/L Total Calcium 8.8 8.5-10.1 mg/dL Magnesium Level 1.80 1.80-2.40 mg/dL Troponin I High Sensitivity 6 4-75 ng/L Current Medications Medications (Trade) Dose Ordered Sig/Gaby Route PRN Reason Start Time Stop Time Status Last Admin Dose Admin Atorvastatin Calcium (LIPItor 40MG) 40 mg HS PO 12/15/24 21:00 01/14/25 20:59 Dextrose (D50w) 50 ml AD PRN IV HYPOGLYCEMIA PROTOCOL 12/15/24 13:30 01/14/25 13:29 Famotidine (Pepcid 20mg Vial) 20 mg DAILY IV 12/16/24 09:00 01/15/25 08:59 Ferrous Sulfate (Ferrous Sulfate) 325 mg DAILY PO 12/16/24 09:00 01/15/25 08:59 Glucagon (Glucagon 1mg Kit) 1 mg AD PRN IM HYPOGLYCEMIA PROTOCOL 12/15/24 13:30 01/14/25 13:29 Home Med (Home Medication) (Sennosides/ Docusate Sodium (Colace 2-i... DAILY PO 12/16/24 09:00 01/15/25 08:59 Hydralazine HCl (APRESOLine 20MG INJ) 5 mg Q6H PRN IV ADMINISTER FOR SBP > 160 12/15/24 14:30 01/14/25 14:29 Hydromorphone HCl (DiLAUDid 0.5MG INJ) 0.2 mg Q6H PRN IVP SEVERE PAIN (7-10) 12/15/24 13:30 12/20/24 13:29 Insulin Human Regular (humuLIN R 100 UNIT/ML 3ML) INSULIN SLIDING SCAL... ACHS SQ 12/15/24 16:30 01/14/25 16:29 Linezolid 300 ml @ 150 mls/hr Q12H IV 12/15/24 21:00 12/25/24 20:59 Meropenem (Merrem 1gm) 1 gm Q12H IVPB 12/15/24 16:00 12/25/24 15:59 Pharmacy Profile Note (Pharmacy Communication) 1 each ONCE MISC 12/15/24 13:30 12/15/24 14:18 DC Sodium Chloride 1,000 ml @ 75 mls/hr [id number] IV 12/15/24 13:30 01/14/25 13:29 Tamsulosin HCl (FloMAX) 0.4 mg DAILY PO 12/16/24 09:00 01/15/25 08:59 Vancomycin HCl 250 ml @ 125 mls/hr Q48H IV 12/17/24 11:00 12/15/24 13:19 DC Vancomycin HCl (Vancomycin Protocol) 1 each AD IV 12/15/24 11:00 12/29/24 10:59 DIAGNOSTICS / RADIOLOGY: SERVICE 1040 REASON: urinary retention, testicular swelling wo per provider ORDERING PHYSICIAN: NYLA MORALES PROCEDURE: ABD PEL WO - CT ABDOMEN/PELVIS W/O CONTRAST EXAM: CT Abdomen and Pelvis Without IV contrast CLINICAL HISTORY: urinary retention, testicular swelling wo per provider TECHNIQUE: Axial computed tomography images of the abdomen and pelvis without intravenous contrast. CONTRAST: No IV contrast. COMPARISON: [facility] dated 02/08/23 FINDINGS: LUNG BASES: There are atelectatic bands within the bilateral lower lobes. LIVER: Unremarkable. GALLBLADDER AND BILE DUCTS: Post cholecystectomy status with surgical clips in situ. PANCREAS: Unremarkable. SPLEEN: Unremarkable. ADRENAL GLANDS: Unremarkable. KIDNEYS, URETERS, AND BLADDER: There is marked concentric bladder wall thickening, more pronounced posteriorly, with perivesicular fat stranding likely reflecting cystitis. There is reflux within the bilateral ureters resulting in severe bilateral hydronephrosis and also bilateral perinephric fat stranding reflecting pyelonephritis. There is no radiopaque calculus appreciated. STOMACH AND BOWEL: Unremarkable appearance of the stomach and bowel. No evidence of bowel obstruction. No evidence suggesting enteritis or colitis. APPENDIX: No evidence of acute appendicitis on CT examination. PERITONEUM: Small 7 mm fat-containing umbilical hernia. LYMPH NODES: No lymphadenopathy is evident. REPRODUCTIVE: A well-defined hypodense collection along the right penoscrotal region, measuring 6 x 5.1 cm, concerning for abscess. VASCULATURE: Atherosclerotic changes of the abdominal aorta. BONES: No aggressive appearing osseous lesion. No acute osseous pathology evident. IMPRESSION: 1. Severe bilateral hydronephrosis with pyelonephritis and perinephric fat stranding. 2. Marked bladder wall thickening with perivesicular fat stranding, compatible with cystitis. 3. 6 x 5.1 cm right penoscrotal hypodense collection, concerning for abscess. /[place] DICTATED BY: ALICE LEARY Jr., MD DATE: 12/15/24 1459 ELECTRONICALLY SIGNED BY: ALICE LEARY Jr., MD DATE: 12/15/24 1459 ELECTRONICALLY SIGNED BY: DATE: EXAM: US Scrotum. CLINICAL HISTORY: TESTICULAR PAIN/SWELLING TECHNIQUE: Real-time ultrasound of the scrotum with color Doppler and image documentation. COMPARISON: Study dated 07/29. FINDINGS: RIGHT TESTICLE: Normal in size (3.3 cm x 1.5 cm x 2.4 cm) and echogenicity, no abnormal mass. Mildly reduced Doppler flow. LEFT TESTICLE: Normal in size (3.6 cm x 1.4 cm x 2.1 cm) and echogenicity, no abnormal mass. Normal Doppler flow. EPIDIDYMIDES: Within normal limits in size and vascularity. A 3 x 3 x 3 mm cyst along the head of the right epididymis. SCROTUM: There is significant improvement of previously documented abscess measuring 2.5 x 2.2 cm along the right scrotal wall (6 mm). No hydrocele, varicocele seen. IMPRESSION: 1. Scrotal wall abscess along the right side, measuring 2.5 x 2.2 cm, showing significant improvement/reduction in size. 2. Mildly reduced blood flow to the right testicle. Clinical correlation is advised for possible intermittent right testicular torsion. /[place] DICTATED BY: ALICE LEARY Jr., MD DATE: 12/15/24 1324 ELECTRONICALLY SIGNED BY: ALICE LEARY Jr., MD DATE: 12/15/24 1324 ASSESSMENT: Sepsis secondary to complicated urinary tract infection and scrotal cellulitis with abscess, POA Progressive scrotal cellulitis with developing right hemiscrotal abscess, POA Severe complicated urinary tract infection, POA Urinary retention status post Thomas catheter placement, POA Bilateral hydronephrosis, POA Acute kidney injury with underlying history of chronic kidney disease, POA Severe nonketotic hyperglycemia with poorly controlled type 2 diabetes mellitus, POA History of Farxiga use as outpatient, POA Hypertension, POA History of dual antiplatelet therapy with aspirin and Plavix as outpatient, POA History of coronary artery disease with prior history of coronary intervention and stenting, POA History of peripheral arterial disease with history of lower extremity angioplasty and stenting, POA History of TIA, POA Hypertension, POA Hyperlipidemia, POA Debility, POA Right eye blindness, POA Decreased vision of left eye, POA History of iron deficiency anemia, POA [place] [facility] [place]id[place]chitis with abscess requiring surgical drainage,07/2024, POA PLAN: Patient will be admitted to cardiac telemetry floor Consultation with Urology was already requested from the ER by Dr. Pena, we will await further evaluation Farxiga and SGLT2 inhibitors will be stopped indefinitely which are associated with necrotizing soft tissue infections and severe UTIs, discussed with patient to stop Farxiga use as outpatient We will check blood ketone to rule out DKA, patient will be started on sliding scale insulin a.c. and HS, we will start patient on Lantus as well, we will have Endocrinology evaluate patient We will start patient on broad-spectrum IV antibiotics with linezolid/meropenem, we will avoid any nephrotoxic antibiotics We will follow up blood culture, urine cultures to deescalate antibiotics Consultation with Infectious Disease will be requested We will hold losartan until renal function improves Patient received1 L of NS bolus in the ER, we will provide additional 500 mL NS bolus and start normal saline at 75 mL/hour, full sepsis bolus was not given due to acute renal failure and risk of volume overload Anticipate hospitalization for greater than 72 hours Continue with Thomas catheter for management of urinary retention and suspected obstructive uropathy, continue with Flomax 0.4 mg daily All labs will be repeated in the morning We will hold aspirin and Plavix until further evaluation by Urology for further management of scrotal abscess, patient currently denies any active chest pain or shortness of breath Date of service: 12/15/2024 Prognosis: Guarded Plan of care was discussed with patient at bedside, Joce Lomeli MD Advanced Care Planning: Which of the following were discussed: Hospice care: Yes __ No _X_ Therapeutic options: Yes _X_ No __ Advance directives: Yes _X_ No __ Other discussions: Discussed with who?: Patient Voluntary nature of this service was explained to the patient? Yes _x_ No __ Amount of time spent: 20 minutes JOCE LOMELI MD Dec 15, 2024 14:39
[2024-12-15 14:42] LABS: ABG OXYGEN SATURATION 52.7 % (94.0-98.0); BASE EXCESS,VENOUS BLOOD GAS -6.2 (-2.0-3.0); HCO3,VENOUS BLOOD GAS 19.3 (22.0-29.0); PCO2,VENOUS BLOOD GAS 38 (38-54); PH,VENOUS BLOOD GAS 7.325 (7.320-7.430); PO2,VENOUS BLOOD GAS 28.4 mmHg (23.0-48.0); TEMPERATURE, CELSIUS BG 37.0 CELSIUS (35.5-37.0); VENT MODE, BG RA (ROOM AIR)
[2024-12-15] MEDS: 0.9% NACL 500ML IV.SOLN 500 ML IV ONE (15:13)
[2024-12-15] MEDS: 0.9%NACL 1000ML 1,000 ML IV SCH (15:37)
[2024-12-15] MEDS: MEROPENEM 1GM 1 GM VIAL IVPB SCH (15:37)
--- NOTE | 2024-12-15 15:49 | EKG ---
[facility] Test Date: 2024-12-15 Test Time: 13:43:03 Pat Name: ASHA SUERO Department: [facility] Room: 222 Gender: M Director Of Strategy & Mobile: [id number] : 1975 Requested By: BENJAMIN VILLELA Order Number: [id number] Reading MD: Al Quinones Measurements Intervals [place] Rate: 99 P: 26 LA: 150 QRS: 221 QRSD: 123 T: 56 QT: 360 QTc: 462 Interpretive Statements Sinus rhythm Nonspecific intraventricular conduction delay Inferior infarct, old Compared to ECG 12/15/2024 10:47:22 Intraventricular conduction delay now present Myocardial infarct finding still present Electronically Signed On 12-16-2024 16:23:52 CDT by Al Quinones Please click the below link to view image of tracing.
[2024-12-15] MEDS: LINEZOLID 600 MG/ISO-OSM 300 ML IV SCH (21:05)
--- NOTE | 2024-12-15 21:47 | NUR ---
DR. JEAN-BAPTISTE ROUNDS TO PTS ROOM AT THIS TIME. PER DR. JEAN-BAPTISTE, NO PLANS FOR SURGERY FOR TONIGHT.
[2024-12-15 22:09] LABS: APPEARANCE,URINE TURBID (CLEAR); CREATININE,URINE RANDOM 60.16 mg/dL (30-135); GLUCOSE, URINE (UA) 500 mg/dL (NEGATIVE); LEUKOCYTE ESTERASE ,URINE 500 Leu/uL (NEGATIVE); NITRATE,URINE NEGATIVE (NEGATIVE); OCCULT BLOOD,URINE LARGE (NEGATIVE)
[2024-12-15 22:13] LABS: ADD UA MICROSCOPIC YES
[2024-12-15 22:17] LABS: WBC CLUMP MANY /HPF (0-1); YEAST,URINE BUDDING MOD /HPF (None Seen)
--- NOTE | 2024-12-15 22:45 | CONS ---
CONSULTATION NOTE Date of Service: Dec 15, 2024 Reason for Consultation: Scrotal abscess Requesting Physician: Joce Lomeli MD HISTORY OF PRESENT ILLNESS: 49-year-old male with multiple comorbidities, most of the risk factors for soft tissue infections and abscesses presents to the emergency department reporting scrotal swelling and pain associated with fever. Onset was a few days ago. He started experiencing what he described as pressure in the scrotum. He has a difficulty with urination two. Even though he is able to void he feels like he does not empty his bladder. He had a scrotal ultrasound done in the emergency department and there was a well-defined abscess pocket but there was also reporting of scrotal wall thickening with diminished flow to the right testicle. On clinical exam no evidence of testicular torsion. Patient does have scrotal cellulitis and swelling. By the time we examined him there has been spontaneous rupture of the abscess pocket and was draining purulent material. Thomas catheter in place with purulence and fibrinous exudate from the meatus as well. A urological consult was requested. REVIEW OF SYSTEMS CONSTITUTIONAL: Denies fever, chills, or fatigue. HEAD/FACE: No signs of trauma. EENT: Denies eye pain, blurred vision, double vision, or light sensitivity. RESPIRATORY: Denies shortness of breath, cough, wheezing CARDIOVASCULAR: Denies chest pain, palpitation, syncope GASTROINTESTINAL/ABDOMINAL: Denies abdominal pain, constipation, diarrhea, nausea or vomiting GENITOURINARY: Scrotal pain MUSCULOSKELETAL: Denies joint pain, tenderness, or trauma. INTEGUMENTARY: Denies rash or itchiness NEUROLOGICAL/PSYCH: Denies anxiety, depression, heat or cold intolerance. PAST MEDICAL HISTORY: Diabetes mellitus type 2 Hypertension Hyperlipidemia GERD PAD Coronary artery disease Obesity PAST SURGICAL HISTORY: Left AKA PAST SOCIAL HISTORY: Former smoker Denies any use of alcohol or illicit drugs FAMILY HISTORY: Noncontributory to presenting complaint Coded Allergies: morphine (Unverified Allergy, Intermediate, HALLUCINATIONS, 02/13/23) PHYSICAL EXAM EYES: Anicteric. Pupils equal and reactive. HENT: No oral thrush seen, moist Oral mucosa NECK: Supple, no JVD or thyromegaly. LUNGS: Good air entry. No rales, no rhonchi. CARDIOVASCULAR: S1, S2 regular. No murmur heard. ABDOMEN: Soft, non tender, bowel sounds present, no organomegaly CENTRAL NERVOUS SYSTEM: Awake, alert, oriented x 3. No focal deficits. SKIN: No rashes, no swelling. LYMPHATICS: No peripheral lymphadenopathy MUSCULOSKELETAL: No joint swelling, erythema or tenderness. EXTREMITIES: No cyanosis or clubbing BACK: No deformity, no pressure ulcer. GENITOURINARY: Thomas catheter is in place, this fibrinous drainage from the meatus. The scrotal perineal abscess since ruptured spontaneously with drainage of purulence. Vital Sign (Last 24 Hours) 12/15/24 22:06 Temp 99.3 Pulse 91 Resp 18 B/P (MAP) 96/58 Pulse Ox 98 O2 Delivery Room Air* O2 Flow Rate 0 FiO2 21 LABS: Laboratory: Test 12/15/24 21:46 12/15/24 20:20 12/15/24 14:40 12/15/24 13:42 Range/Units Urine Color LIGHT-ORANGE YELLOW Urine Appearance TURBID CLEAR Urine pH 6.5 5.0-8.0 Urine Specific [place] 1.018 1.001-1.031 Urine Protein 300 H NEGATIVE mg/dL Urine Glucose (UA) 500 H NEGATIVE mg/dL Urine Ketones NEGATIVE NEGATIVE mg/dL Urine Occult Blood LARGE H NEGATIVE Urine Nitrate NEGATIVE NEGATIVE Urine Bilirubin NEGATIVE NEGATIVE mg/dL Urine Urobilinogen 0.2 0.2-1.0 mg/dL Urine Leukocyte Esterase 500 H NEGATIVE [place]/uL Urine RBC TNTC H 0-1 /HPF Urine WBC TNTC H 0-1 /HPF Urine WBC Clumps (Auto) MANY 0-1 /HPF Urine Bacteria RARE None Seen /HPF Urine Yeast MOD None Seen /HPF Urine Random Creatinine 60.16 30-135 mg/dL Urine Random Sodium 81 40-220 mmol/l Urine Random Potassium 11 L 25-125 mmol/L Urine Random Chloride 72 L 110-250 mmol/L Whole Blood Glucose 267 H 70-110 MG/DL Blood Gas Specimen Type Venous Arterial Blood Oxygen Saturation 52.7 L 94.0-98.0 % Venous Blood pH 7.325 7.320-7.430 Venous Blood pCO2 at Patient Temp 38 38-54 Venous Blood pO2 at Patient Temp 28.4 23.0-48.0 mmHg Venous Blood HCO3 19.3 L 22.0-29.0 Venous Blood Base Excess -6.2 L -2.0-3.0 Venous Blood Total Hemoglobin 11.3 L 13.5-17.5 Sodium (Blood Gas) 129 L 136-145 MMOL/L Bedside Potassium (Blood Gas) 5.0 H 3.4-4.5 MMOL/L Bedside Chloride (Blood Gas) 101 98-107 MMOL/L Bedside Glucose (Blood Gas) 352 H 65-95 MG/DL Bedside Ionized Calcium (Blood Gas) 1.16 1.15-1.33 MMOL/L Bedside Lactic Acid (Blood Gas) 1.30 H 0.36-0.75 MMOL/L Blood Gas Temperature 37.0 35.5-37.0 CELSIUS Blood Gas Vent Mode RA ROOM AIR FiO2 21.0 % Blood Gas Specimen Comment LAR,. Erythrocyte Sedimentation Rate 133 H 0-15 MM/HR Hemoglobin A1c 14.0 H 4.0-6.0 % Estimated Average Glucose (eAG) 355 H 70-126 mg/dL Whole Blood Ketones Quantitative 0.3 0.0-0.6 mmol/L Total Bilirubin 0.4 0.2-1.0 mg/dL Direct Bilirubin 0.1 0.0-0.3 mg/dL Aspartate Amino Transf (AST/SGOT) 17 10-37 U/L Alanine Aminotransferase (ALT/SGPT) 20 12-78 U/L Alkaline Phosphatase 215 H 50-136 U/L Lactate Dehydrogenase 139 81-234 U/L C-Reactive Protein, Quantitative 257.00 H 0.5-3.0 mg/L Total Protein 7.7 6.0-8.3 g/dL Albumin 1.6 L 3.5-5.0 g/dL Procalcitonin 0.82 H 0.05-0.5 ng/mL Thyroid Stimulating Hormone (TSH) 1.49 0.36-3.74 uIU/mL Test 12/15/24 11:47 12/15/24 10:10 Range/Units Bedside Glucose Comment Notified Nurse White Blood Count 18.6 H 4.8-10.8 K/uL Red Blood Count 4.35 L 4.50-6.20 MIL/uL Hemoglobin 11.0 L 14.0-18.0 g/dL Hematocrit 34.2 L 42-54 % Mean Corpuscular Volume 78.6 L 79-99 fL Mean Corpuscular Hemoglobin 25.3 L 27.0-33.0 pg Mean Corpuscular Hemoglobin Concent 32.2 32.0-36.0 g/dL Red Cell Distribution Width 13.3 11.0-15.5 % Platelet Count 454 H 130-400 K/uL Mean Platelet Volume 10.0 7.5-10.5 fL Immature Granulocyte % (Auto) 0.5 0-1 % Neutrophils (%) (Auto) 82.5 H 40.0-77.0 % Lymphocytes (%) (Auto) 9.7 L 21.0-51.0 % Monocytes (%) (Auto) 6.9 3.0-13.0 % Eosinophils (%) (Auto) 0.1 0.0-8.0 % Basophils (%) (Auto) 0.3 0.0-5.0 % Neutrophils # (Auto) 15.3 H 1.8-7.7 K/uL Lymphocytes # (Auto) 1.8 1.0-4.8 K/uL Monocytes # (Auto) 1.3 H 0.1-1.0 K/uL Eosinophils # (Auto) 0.01 0.00-0.70 K/uL Basophils # (Auto) 0.05 0.00-0.20 K/uL Absolute Immature Granulocyte (auto 0.09 0-1 K/uL Segmented Neutrophils % 64 40-70 % Band Neutrophils % 12 H 0-2 % Lymphocytes % (Manual) 15 L 22-44 % Monocytes % (Manual) 9 2-9 % Nucleated Red Blood Cells 0.0 0.0-0.19 % Differential Comment MANUAL DIFFERENTIAL White Cell Morphology Comment CONSISTENT W/DIFF Platelet Morphology Comment SLIGHT INCREASED Red Blood Cell Morphology See comments Sodium Level 127 L 136-145 mmol/L Potassium Level 4.8 3.5-5.1 mmol/L Chloride Level 93 L 101-111 mmol/L Carbon Dioxide Level 21 21-32 mmol/L Blood Urea Nitrogen 69 H 7-18 mg/dL Creatinine 3.4 H 0.5-1.3 mg/dL Glomerular Filtration Rate Calc 21 >90 mL/min Random Glucose 438 *H 70-105 mg/dL Lactic Acid Level 1.9 0.8-2.5 mmol/L Total Calcium 8.8 8.5-10.1 mg/dL Magnesium Level 1.80 1.80-2.40 mg/dL Troponin I High Sensitivity 6 4-75 ng/L DIAGNOSTICS / RADIOLOGY: CT of the abdomen and pelvis without contrast shows bilateral hydroureteronephrosis down to a distended bladder. CT was obtained before Thomas catheter was inserted. The testicles look normal. There was a deep scrotal abscess measuring almost 3 cm. Scrotal ultrasound also confirms a deep scrotal abscess more towards the right side. Normal Doppler findings ASSESSMENT: 49-year-old man with multiple comorbidities and risk factors for soft tissue infection presents with a deep scrotal abscess and scrotal wall edema/cellulitis PLAN: 1. The abscess is spontaneously draining. The patient is still going to need a formal incision and drainage. We will be making arrangements to take patient to the operating suite for the procedure. 2. Clinical exam did not reveal findings suggestive of torsion. There was scrotal wall thickening worst on the right side with cellulitis. 3. Antibiotic therapy for now. 60 minutes spent to complete a consult, more than half of the time spent in counseling and coordination of care and addressing questions and concerns post by patient, some time was spent discussing with members of his care team. The rest of the time was spent reviewing medical records. We spent some time reviewing his imaging studies as well. SHAWNA JEAN-BAPTISTE MD Dec 15, 2024 22:45
[2024-12-16] VITALS (27 sets, daily range): BP systolic 95–163; BP diastolic 53–99; PULSE 54–98; RESP 16–22; TEMP 97.9–98.8; O2SAT 95–97
--- NOTE | 2024-12-16 03:31 | NUR ---
RECEIVED REPORT FROM EDUARDO CHAIREZ IN ER.
[2024-12-16 05:29] LABS: IMMATURE GRANULOCYTE ABSOLUTE 0.08 K/uL (0-1); NUCLEATED RED BLOOD CELLS 0.0 % (0.0-0.19); PLATELET COUNT (AUTO) 424 K/uL (130-400); RED BLOOD CELL COUNT(AUTO) 4.12 MIL/uL (4.50-6.20); RED CELL DISTRIBUTION WIDTH 13.6 % (11.0-15.5); WHITE BLOOD COUNT (AUTO) 14.8 K/uL (4.8-10.8)
[2024-12-16 05:51] LABS: % IRON SATURATION 10.4 % (30-44); IRON, SERUM 15.0 mcg/dL (65-175)
[2024-12-16 06:02] LABS: ASPARTATE AMINOTRANSFERASE 20.0 U/L (10-37); CREATININE 3.3 mg/dL (0.5-1.3); GLOMERULAR FILTR. RATE CALC 22.0 mL/min (>90); GLUCOSE,RANDOM 280.0 mg/dL (70-105); PHOSPHORUS 5.0 mg/dL (2.5-4.9); SODIUM SERUM 131.0 mmol/L (136-145); TOTAL PROTEIN, SERUM 7.1 g/dL (6.0-8.3)
[2024-12-16 06:07] LABS: UREA NITROGEN, BLOOD 79.0 mg/dL (7-18)
--- NOTE | 2024-12-16 06:21 | NUR ---
CALL MADE TO METHODS STUDY ANALYST HOSPITALIST TO REPORT BUN OF 79. PENDING CALL BACK.
--- NOTE | 2024-12-16 08:05 | NUR ---
EXPLAINED TO PATIENT OF DR. JEAN-BAPTISTE PLAN TO TAKE HIM TO SURGERY TODAY. PATIENT [id number]. PATIENT GAVE CONSENT FOR SURGERY AND SIGNED CONSENT FORM.
[2024-12-16] MEDS: Vitamin B Complex/Vit C/Folic Acid PO SCH (08:29)
[2024-12-16] MEDS: SENNOSIDES PO SCH (08:29)
[2024-12-16] MEDS: DOCUSATE SODIUM PO SCH (08:29)
[2024-12-16] MEDS: FERROUS SULFATE 325 MG TABLET.DR PO SCH (08:29)
[2024-12-16] MEDS: FAMOTIDINE 20MG VIAL IV SCH (09:12)
--- NOTE | 2024-12-16 10:25 | PN ---
NEPHROLOGY PROGRESS NOTE Date/Time Patient Seen: Dec 16, 2024 SUBJECTIVE: This is a 49-year-old male with a past medical history of diabetes mellitus type 2, hypertension, peripheral arterial disease with left AKA, coronary artery disease, hyperlipidemia, GERD, PAD, and obesity Patient presented to the emergency room for fever and scrotum swelling. Thomas in place due to urinary retention Blood and urine cultures have been collected, pending results Continues on broad-spectrum antibiotics. Were consulted for renal failure. Renal function remains elevated Electrolytes are stable. UA positive for proteinuria. Hemoglobin noted CT of the abdomen showed severe bilateral hydronephrosis. Marked bladder wall thickening with perivesicular fat stranding Patient was seen in the medical floor, in no acute distress Family at the bedside Prognosis remains guarded REVIEW OF SYSTEMS: GENERAL: Positive for fever and scrotum swelling. NEUROLOGIC: Negative for any blurry vision, blind spots, double vision, facial asymmetry, dysphagia, dysarthria, hemiparesis, hemisensory deficits, vertigo, ataxia. HEENT: Negative for any head trauma, neck trauma, neck stiffness, photophobia, phonophobia, sinusitis, rhinitis. CARDIAC: Negative for any chest pain, dyspnea on exertion, paroxysmal nocturnal dyspnea, peripheral edema. PULMONARY: Negative for any shortness of breath, wheezing, COPD, or TB exposure. GASTROINTESTINAL: Negative for any abdominal pain, nausea, vomiting, bright red blood per rectum, melena. GENITOURINARY: Negative for any dysuria, hematuria, incontinence. INTEGUMENTARY: Negative for any rashes, cuts, insect bites. RHEUMATOLOGIC: Negative for any joint pains, photosensitive rashes, history of vasculitis or kidney problems. HEMATOLOGIC: Negative for any abnormal bruising, frequent infections or bleeding. Vital Signs (last 8hr) Date Time Temp Pulse Resp B/P (MAP) Pulse Ox O2 Delivery O2 Flow Rate FiO2 12/16/24 08:01 86 19 135/86 98 Room Air 12/16/24 04:30 97 Room Air* 0 21 12/16/24 04:00 98.4 83 22 103/55 94 Room Air 12/16/24 02:55 88 18 123/71 96 Room Air* 0 21 PHYSICAL EXAM: GENERAL: Alert and oriented x 3. No acute distress. Well-nourished. EYES: EOMI. Anicteric. HENT: Moist mucous membranes. No scleral icterus. No cervical lymphadenopathy. LUNGS: Clear to auscultation bilaterally. No accessory muscle use. CARDIOVASCULAR: Regular rate and rhythm. No murmur. No JVD. ABDOMEN: Soft, non-tender and non-distended. No palpable masses. EXTREMITIES: No edema. Non-tender. SKIN: No rashes or lesions. Warm. NEUROLOGIC: No focal neurological deficits. CN II-XII grossly intact, but not individually tested. PSYCHIATRIC: Cooperative. Appropriate mood and affect. Current Medications Medications (Trade) Dose Ordered Sig/Gaby Route Start Time Stop Time Status Last Admin Dose Admin Atorvastatin Calcium (LIPItor 40MG) 40 mg HS PO 12/15/24 21:00 01/14/25 20:59 12/15/24 21:05 40 MG Famotidine (Pepcid 20mg Vial) 20 mg DAILY IV 12/16/24 09:00 01/15/25 08:59 12/16/24 09:12 20 MG Ferrous Sulfate (Ferrous Sulfate) 325 mg DAILY PO 12/16/24 09:00 01/15/25 08:59 Home Med (Home Medication) (Sennosides/ Docusate Sodium (Colace 2-i... DAILY PO 12/16/24 09:00 01/15/25 08:59 Insulin Glargine (LANtus 100 UNITS/ML 10 ML VIAL) 20 units DAILY SQ 12/16/24 09:00 01/14/25 20:59 Insulin Glargine (LANtus 100 UNITS/ML 10 ML VIAL) 20 units HS SQ 12/15/24 21:00 12/16/24 06:19 DC 12/15/24 21:05 20 UNITS Insulin Glargine (LANtus 100 UNITS/ML 10 ML VIAL) 25 units HS SQ 12/15/24 21:00 12/15/24 18:52 DC Insulin Human Regular (humuLIN R 100 UNIT/ML 3ML) 8 unit TIDAC SQ 12/16/24 07:30 01/15/25 07:29 Insulin Human Regular (humuLIN R 100 UNIT/ML 3ML) INSULIN SLIDING SCAL... ACHS SQ 12/15/24 16:30 12/16/24 06:19 DC 12/15/24 21:03 5 UNIT Insulin Human Regular (humuLIN R 100 UNIT/ML 3ML) INSULIN SLIDING SCAL... ACHS SQ 12/16/24 07:30 01/15/25 07:29 Linezolid 300 ml @ 150 mls/hr Q12H IV 12/15/24 21:00 12/17/24 20:59 12/16/24 09:12 150 MLS/HR Meropenem (Merrem 1gm) 1 gm Q12H IVPB 12/15/24 16:00 12/17/24 23:00 12/16/24 06:02 1 GM Pharmacy Profile Note (Pharmacy Communication) 1 each ONCE MISC 12/15/24 13:30 12/15/24 14:18 DC Sodium Chloride 1,000 ml @ 75 mls/hr [id number] IV 12/15/24 13:30 01/14/25 13:29 12/16/24 02:42 75 MLS/HR Tamsulosin HCl (FloMAX) 0.4 mg DAILY PO 12/16/24 09:00 01/15/25 08:59 Vancomycin HCl 250 ml @ 125 mls/hr Q48H IV 12/17/24 11:00 12/15/24 13:19 DC Vancomycin HCl (Vancomycin Protocol) 1 each AD IV 12/15/24 11:00 12/15/24 23:52 DC Vitamin B Complex/ Vit C/Folic Acid (Nephrovite Tablet) 1 cap DAILY PO 12/16/24 09:00 01/15/25 08:59 LABORATORY: [ ] Hematology Labs: Test 12/16/24 05:17 12/15/24 13:42 12/15/24 10:10 Range/Units White Blood Count 14.8 H 4.8-10.8 K/uL Red Blood Count 4.12 L 4.50-6.20 MIL/uL Hemoglobin 10.3 L 14.0-18.0 g/dL Hematocrit 32.5 L 42-54 % Mean Corpuscular Volume 78.9 L 79-99 fL Mean Corpuscular Hemoglobin 25.0 L 27.0-33.0 pg Mean Corpuscular Hemoglobin Concent 31.7 L 32.0-36.0 g/dL Red Cell Distribution Width 13.6 11.0-15.5 % Platelet Count 424 H 130-400 K/uL Mean Platelet Volume 9.6 7.5-10.5 fL Immature Granulocyte % (Auto) 0.5 0-1 % Neutrophils (%) (Auto) 78.8 H 40.0-77.0 % Lymphocytes (%) (Auto) 12.9 L 21.0-51.0 % Monocytes (%) (Auto) 7.2 3.0-13.0 % Eosinophils (%) (Auto) 0.5 0.0-8.0 % Basophils (%) (Auto) 0.1 0.0-5.0 % Neutrophils # (Auto) 11.6 H 1.8-7.7 K/uL Lymphocytes # (Auto) 1.9 1.0-4.8 K/uL Monocytes # (Auto) 1.1 H 0.1-1.0 K/uL Eosinophils # (Auto) 0.07 0.00-0.70 K/uL Basophils # (Auto) 0.02 0.00-0.20 K/uL Absolute Immature Granulocyte (auto 0.08 0-1 K/uL Nucleated Red Blood Cells 0.0 0.0-0.19 % Erythrocyte Sedimentation Rate 133 H 0-15 MM/HR Segmented Neutrophils % 64 40-70 % Band Neutrophils % 12 H 0-2 % Lymphocytes % (Manual) 15 L 22-44 % Monocytes % (Manual) 9 2-9 % Differential Comment MANUAL DIFFERENTIAL White Cell Morphology Comment CONSISTENT W/DIFF Platelet Morphology Comment SLIGHT INCREASED Red Blood Cell Morphology See comments Chemistry Labs: Test 12/16/24 05:17 12/16/24 04:55 12/15/24 13:42 12/15/24 11:47 Range/Units Sodium Level 131 L 136-145 mmol/L Potassium Level 4.4 3.5-5.1 mmol/L Chloride Level 100 L 101-111 mmol/L Carbon Dioxide Level 19 L 21-32 mmol/L Blood Urea Nitrogen 79 *H 7-18 mg/dL Creatinine 3.3 H 0.5-1.3 mg/dL Glomerular Filtration Rate Calc 22 >90 mL/min Random Glucose 280 H 70-105 mg/dL Uric Acid 10.6 H 2.6-7.2 mg/dL Total Calcium 8.6 8.5-10.1 mg/dL Phosphorus Level 5.0 H 2.5-4.9 mg/dL Magnesium Level 1.90 1.80-2.40 mg/dL Iron Level 15 #L 65-175 mcg/dL Total Iron Binding Capacity 144 L 250-450 mcg/dL Percent Iron Saturation 10.4 L 30-44 % Ferritin 598 H 30-400 ng/mL Total Bilirubin 0.3 # 0.2-1.0 mg/dL Aspartate Amino Transf (AST/SGOT) 20 10-37 U/L Alanine Aminotransferase (ALT/SGPT) 19 12-78 U/L Alkaline Phosphatase 207 H 50-136 U/L Total Protein 7.1 6.0-8.3 g/dL Albumin 1.4 L 3.5-5.0 g/dL Thyroid Stimulating Hormone (TSH) 1.47 0.36-3.74 uIU/mL Whole Blood Glucose 262 H 70-110 MG/DL Hemoglobin A1c 14.0 H 4.0-6.0 % Estimated Average Glucose (eAG) 355 H 70-126 mg/dL Whole Blood Ketones Quantitative 0.3 0.0-0.6 mmol/L Direct Bilirubin 0.1 0.0-0.3 mg/dL Lactate Dehydrogenase 139 81-234 U/L C-Reactive Protein, Quantitative 257.00 H 0.5-3.0 mg/L Procalcitonin 0.82 H 0.05-0.5 ng/mL Bedside Glucose Comment Notified Nurse Test 12/15/24 10:10 Range/Units Lactic Acid Level 1.9 0.8-2.5 mmol/L Troponin I High Sensitivity 6 4-75 ng/L DIAGNOSTICS / RADIOLOGY: [address] [address] IMAGING REPORT Signed PATIENT: ASHA SUERO MR#: [id number] : 1975 SEX: M AGE: 49 LOCATION: [facility] ORDER 1041 STATUS: ADM IN REPORT#: [id number] SERVICE 1040 REASON: urinary retention, testicular swelling wo per provider ORDERING PHYSICIAN: NYLA MORALES PROCEDURE: ABD PEL WO - CT ABDOMEN/PELVIS W/O CONTRAST EXAM: CT Abdomen and Pelvis Without IV contrast CLINICAL HISTORY: urinary retention, testicular swelling wo per provider TECHNIQUE: Axial computed tomography images of the abdomen and pelvis without intravenous contrast. CONTRAST: No IV contrast. COMPARISON: [facility] dated 02/08/23 FINDINGS: LUNG BASES: There are atelectatic bands within the bilateral lower lobes. LIVER: Unremarkable. GALLBLADDER AND BILE DUCTS: Post cholecystectomy status with surgical clips in situ. PANCREAS: Unremarkable. SPLEEN: Unremarkable. ADRENAL GLANDS: Unremarkable. KIDNEYS, URETERS, AND BLADDER: There is marked concentric bladder wall thickening, more pronounced posteriorly, with perivesicular fat stranding likely reflecting cystitis. There is reflux within the bilateral ureters resulting in severe bilateral hydronephrosis and also bilateral perinephric fat stranding reflecting pyelonephritis. There is no radiopaque calculus appreciated. STOMACH AND BOWEL: Unremarkable appearance of the stomach and bowel. No evidence of bowel obstruction. No evidence suggesting enteritis or colitis. APPENDIX: No evidence of acute appendicitis on CT examination. PERITONEUM: Small 7 mm fat-containing umbilical hernia. LYMPH NODES: No lymphadenopathy is evident. REPRODUCTIVE: A well-defined hypodense collection along the right penoscrotal region, measuring 6 x 5.1 cm, concerning for abscess. VASCULATURE: Atherosclerotic changes of the abdominal aorta. BONES: No aggressive appearing osseous lesion. No acute osseous pathology evident. IMPRESSION: 1. Severe bilateral hydronephrosis with pyelonephritis and perinephric fat stranding. 2. Marked bladder wall thickening with perivesicular fat stranding, compatible with cystitis. 3. 6 x 5.1 cm right penoscrotal hypodense collection, concerning for abscess. /[place] DICTATED BY: ALICE LEARY Jr., MD DATE: 12/15/241458 ELECTRONICALLY SIGNED BY: ALICE LEARY Jr., MD DATE: 12/15/241458 PATIENT: ASHA SUERO MR#: [id number] : 1975 SEX: M AGE: 49 LOCATION: [facility] ORDER 35 STATUS: REG REPORT#: [id number] SERVICE 1032 REASON: SEPSIS ORDERING PHYSICIAN: NYLA MORALES PROCEDURE: CXR1VW - CHEST 1VW EXAM: CR Chest, 1 View. CLINICAL HISTORY: SEPSIS COMPARISON: None provided. FINDINGS: LUNGS: There is no mass, infiltrate, or acute pulmonary abnormality. Mild bibasilar atelectasis. PLEURAL SPACES: No pleural effusion or pneumothorax. MEDIASTINUM: The cardiomediastinal silhouette is within normal limits. BONES: No acute osseous abnormality. IMPRESSION: No acute cardiopulmonary pathology is evident. /[place] DICTATED BY: ALICE LEARY Jr., MD DATE: 12/15/241348 ELECTRONICALLY SIGNED BY: ALICE LEARY Jr., MD DATE: 12/15/241348 PATIENT: ASHA SUERO MR#: [id number] : 1975 SEX: M AGE: 49 LOCATION: [facility] ORDER 1015 STATUS: [facility] REPORT#: [id number] SERVICE 1013 REASON: TESTICULAR PAIN/SWELLING ORDERING PHYSICIAN: NYLA MORALES PROCEDURE: SCROTUM - US SCROTUM & CONTENTS ADDENDUM REPORT ADDENDUM: Results were shared by telephone at 13:33 pm on 12-15-24 and acknowledged by Nyla Ordonez /[place] EXAM: US Scrotum. CLINICAL HISTORY: TESTICULAR PAIN/SWELLING TECHNIQUE: Real-time ultrasound of the scrotum with color Doppler and image documentation. COMPARISON: Study dated 07/29. FINDINGS: RIGHT TESTICLE: Normal in size (3.3 cm x 1.5 cm x 2.4 cm) and echogenicity, no abnormal mass. Mildly reduced Doppler flow. LEFT TESTICLE: Normal in size (3.6 cm x 1.4 cm x 2.1 cm) and echogenicity, no abnormal mass. Normal Doppler flow. EPIDIDYMIDES: Within normal limits in size and vascularity. A 3 x 3 x 3 mm cyst along the head of the right epididymis. SCROTUM: There is significant improvement of previously documented abscess measuring 2.5 x 2.2 cm along the right scrotal wall (6 mm). No hydrocele, varicocele seen. IMPRESSION: 1. Scrotal wall abscess along the right side, measuring 2.5 x 2.2 cm, showing significant improvement/reduction in size. 2. Mildly reduced blood flow to the right testicle. Clinical correlation is advised for possible intermittent right testicular torsion. /[place] DICTATED BY: ALICE LEARY Jr., MD DATE: 12/15/24 1339 ELECTRONICALLY SIGNED BY: DATE: EXAM: US Scrotum. CLINICAL HISTORY: TESTICULAR PAIN/SWELLING TECHNIQUE: Real-time ultrasound of the scrotum with color Doppler and image documentation. COMPARISON: Study dated 07/29. FINDINGS: RIGHT TESTICLE: Normal in size (3.3 cm x 1.5 cm x 2.4 cm) and echogenicity, no abnormal mass. Mildly reduced Doppler flow. LEFT TESTICLE: Normal in size (3.6 cm x 1.4 cm x 2.1 cm) and echogenicity, no abnormal mass. Normal Doppler flow. EPIDIDYMIDES: Within normal limits in size and vascularity. A 3 x 3 x 3 mm cyst along the head of the right epididymis. SCROTUM: There is significant improvement of previously documented abscess measuring 2.5 x 2.2 cm along the right scrotal wall (6 mm). No hydrocele, varicocele seen. IMPRESSION: 1. Scrotal wall abscess along the right side, measuring 2.5 x 2.2 cm, showing significant improvement/reduction in size. 2. Mildly reduced blood flow to the right testicle. Clinical correlation is advised for possible intermittent right testicular torsion. /[place] DICTATED BY: ALICE LEARY Jr., MD DATE: 12/15/24 1324 ELECTRONICALLY SIGNED BY: ALICE LEARY Jr., MD DATE: 12/15/24 1324 ASSESSMENT: Acute on chronic renal failure Nephrotic syndrome Anemia Severe bilateral hydronephrosis with pyelonephritis Sepsis Progressive scrotal cellulitis with developing right hemiscrotum abscess Severe complicated urinary tract infection Urinary retention S/p Thomas catheter Electrolyte derangement Coronary artery disease Uncontrolled Diabetes mellitus type 2 Hyperlipidemia Hypertension PAD S/p left AKA Severe protein calorie malnutrition Obesity Debility Right eye blindness Decreased vision of left eye PLAN: Labs, diagnostic, radiologic exams reviewed and interpreted by myself and supervising physician. We have reviewed external records in detail Order complete renal ultrasound to follow up on bilateral hydronephrosis Case discussed with Dr. Martinez Require close monitoring of renal function and electrolytes Order CBC, CMP, and electrolytes in am Continue with antibiotics BiPAP as necessary, for respiratory distress Monitor blood pressure adjust medication doses as needed Avoid hypotensive episodes May use Dilaudid 0.5 mg IV every 6 hours as needed for severe pain Monitor blood sugars Strict intake, output, and daily weight should be monitored Please renally adjust medications Avoid nephrotoxic and nonsteroidal drugs Avoid contrast if possible Will continue to monitor renal function, anemia, electrolytes Treatment plan discussed with patient Questions were answered We have discussed with the other team physicians in detail about the care plan We will continue to monitor the patient closely ATTESTATION BY PHYSICIAN I have seen and examined the patient. I reviewed the documentation, medical decision making, and treatment plan as noted by the mid-level provider above. I agree with the findings and plan of care. KRUPA MANDEL MD, [facility] Dec 16, 2024 10:25
--- NOTE | 2024-12-16 11:01 | PN ---
[facility] PROGRESS NOTE Date of Service: Dec 16, 2024 Time of Service: 10:51 SUBJECTIVE: 49-year-old male with history of poorly controlled type 2 diabetes mellitus, hypertension, hyperlipidemia, GERD, peripheral arterial disease, history of coronary artery disease with prior history of coronary stenting, peripheral arterial disease with prior history of angioplasty and stenting, morbid obesity, history of scrotal cellulitis with abscess requiring [place] [facility] [place] Patient presented to the ER for further evaluation of progressive pain, swelling to the right side of the scrotum ongoing for the past three days. Pain is moderate in intensity involving the right hemiscrotum. Patient reported having subjective fevers, chills as well feels. Reported having dysuria and suprapubic discomfort as well. Patient reported that he was previously hospitalized in [facility] [place] where he was found to have right epididymo-orchitis. Patient during his hospitalization needed incision and drainage with debridement of right perineal and Ischiorectal abscess tracking into the scrotum by Dr. Choudhury on 08/01/2024. During this hospita lization had urinary retention requiring Thomas catheter placement. Discharged to long-term acute care for further IV antibiotic therapy. Patient denies any active chest pain, nausea, vomiting, or significant abdominal pain. On presentation to the ER, patient was noted to be in urinary retention with Thomas catheter placement yielding about 400 mL of urine. Patient underwent testicular ultrasound which showed findings of right scrotal wall abscess and mildly reduced flow to the right testicle. Patient underwent CT abdomen pelvis without contrast which showed findings of severe bilateral hydronephrosis with pyelonephritis, cystitis, and 3.6 cm x 5.1 cm right penoscrotal hypodense collection concerning for abscess. Patient admitted for further treatment and management of sepsis with underlying UTI, scrotal wall cellulitis with abscess, acute kidney injury and severe hyperglycemia. Consultation with Urology requested. Patient started on broad-spectrum antibiotics. 12/16 patient remains admitted to the PCU, blood pressure 135/86, afebrile, saturating normal on room air, WBC 14.8, hemoglobin 10.3, hematocrit 32.5, platelet count of 424. Sodium 131, potassium 4.4, CO2 of 19, BUN of 79, creatinine 3.3, uric acid 10.6, phosphorus 5.0. Iron level at 15. Blood gas with an ABG showing a pH of 7.32, pCO2 38, bicarb 19.3. Blood cultures no growth after 24 hours. Urine culture [id number] CFU, identification and sensitivity in progress. Patient evaluated by urologist, they abscesses and spontaneously draining, but the patient is still going to need formal incision and drainage. Clinical exam did not reveal findings suggestive of torsion. There was scrotal wall thickening worse of the right side with cellulitis. Recommended IV antibiotics for now. I will request a stat ABG to assess metabolic status. Patient with low iron level, follow stool occult blood, if positive we will request GI consultation. Patient currently on ferrous sulfate 325 mg p.o. daily. Infectious Disease consultation requested, follow input and recommendation. Patient with creatinine of 3.3, nephrology input noted and appreciated. Patient is started on insulin glargine 20 units subcutaneously daily as well as insulin sliding scale, continue to follow endocrinology input and recommendation. Renal ultrasound will be ordered, discussed with the assistant inventory manager, if hydronephrosis we will request Urology consult. Follow up PSA level. During my visit patient comfortably in bed, alert oriented x3, no acute events overnight, results of renal function discussed with the patient and the at bedside. REVIEW OF SYSTEMS CONSTITUTIONAL: fevers, chills and malaise NEUROLOGICAL: Denies headache, amaurosis fugax, motor weakness, sensory deficit, vertigo/spinning sensation, gait abnormalities, or tremors. ENT: No hearing loss, otalgia, otorrhea, rhinitis, rhinorrhea, hoarseness, or sore throat. CARDIOVASCULAR: Denies any exertional angina, dyspnea on exertion, orthopnea, paroxysmal nocturnal dyspnea, palpitations, life-threatening arrhythmias, cl audication. PULMONARY: Denies any shortness of breath, cough, phlegm/sputum, hemoptysis, pleuritic chest pain. SLEEP: Denies morning headaches, daytime somnolence or napping. Denies difficulty falling asleep, staying asleep, waking from sleep. Denies knowledge of snoring. GASTROINTESTINAL: Denies any type of dysphagia to either liquids or solids. Denies nausea, vomiting, pyrosis, early satiety, abdominal pain, diarrhea, const ipation, or changes in stool consistency or caliber. Denies coffee-ground emesis, hematemesis, hematochezia, or melanotic stools. GENITOURINARY: redness, swelling and pain to the right side of the scrotum ENDOCRINOLOGIC: poorly controlled DM II with hyperglycemia HEMATOLOGIC: Denies thrombophilia/previous clots, or coagulopathy/bleeding disorders. ONCOLOGIC: Denies personal history of malignancy. DERMATOLOGIC: redness and swelling to the right richie-scrotum PSYCHIATRIC: Denies any suicidal or homicidal ideation. Denies hallucinations. PHYSICAL EXAM GENERAL APPEARANCE: The patient is awake, alert, and oriented, in no acute cardiopulmonary distress. NEUROLOGICAL: Cranial nerves II-XII grossly intact. Motor is 5/5 in bilateral upper and lower extremities proximal to distal. No sensory deficits. HEENT: Face is symmetric. Pupils are equal and reactive. Extraocular movements are intact. NECK: Supple. No JVD. No thyromegaly. No submental, submandibular, pre- /postauricular, occipital or supraclavicular lymphadenopathy. CHEST: Normal chest expansion. No Telemetry. LUNGS: Absence of any rales, rhonchi or any wheezing. CARDIOVASCULAR: Regular. S1 and S2 normal. No appreciable rubs, murmurs or gallops. ABDOMEN: Soft, nontender, and nondistended. There is no rebound, voluntary guarding, or rigidity. : Thomas catheter noted draining cloudy urine, significant redness and swelling noted of the scrotum, mild tenderness to palpation EXTREMITIES: No significant swelling noted Vital Signs (last 8hr) Date Time Temp Pulse Resp B/P (MAP) Pulse Ox O2 Delivery O2 Flow Rate FiO2 12/16/24 08:01 86 19 135/86 98 Room Air 12/16/24 04:30 97 Room Air* 0 21 12/16/24 04:00 98.4 83 22 103/55 94 Room Air 12/16/24 02:55 88 18 123/71 96 Room Air* 0 21 LABS: Laboratory: Test 12/16/24 05:17 12/16/24 04:55 12/15/24 21:46 12/15/24 14:40 Range/Units White Blood Count 14.8 H 4.8-10.8 K/uL Red Blood Count 4.12 L 4.50-6.20 MIL/uL Hemoglobin 10.3 L 14.0-18.0 g/dL Hematocrit 32.5 L 42-54 % Mean Corpuscular Volume 78.9 L 79-99 fL Mean Corpuscular Hemoglobin 25.0 L 27.0-33.0 pg Mean Corpuscular Hemoglobin Concent 31.7 L 32.0-36.0 g/dL Red Cell Distribution Width 13.6 11.0-15.5 % Platelet Count 424 H 130-400 K/uL Mean Platelet Volume 9.6 7.5-10.5 fL Immature Granulocyte % (Auto) 0.5 0-1 % Neutrophils (%) (Auto) 78.8 H 40.0-77.0 % Lymphocytes (%) (Auto) 12.9 L 21.0-51.0 % Monocytes (%) (Auto) 7.2 3.0-13.0 % Eosinophils (%) (Auto) 0.5 0.0-8.0 % Basophils (%) (Auto) 0.1 0.0-5.0 % Neutrophils # (Auto) 11.6 H 1.8-7.7 K/uL Lymphocytes # (Auto) 1.9 1.0-4.8 K/uL Monocytes # (Auto) 1.1 H 0.1-1.0 K/uL Eosinophils # (Auto) 0.07 0.00-0.70 K/uL Basophils # (Auto) 0.02 0.00-0.20 K/uL Absolute Immature Granulocyte (auto 0.08 0-1 K/uL Nucleated Red Blood Cells 0.0 0.0-0.19 % Sodium Level 131 L 136-145 mmol/L Potassium Level 4.4 3.5-5.1 mmol/L Chloride Level 100 L 101-111 mmol/L Carbon Dioxide Level 19 L 21-32 mmol/L Blood Urea Nitrogen 79 *H 7-18 mg/dL Creatinine 3.3 H 0.5-1.3 mg/dL Glomerular Filtration Rate Calc 22 >90 mL/min Random Glucose 280 H 70-105 mg/dL Serum Osmolality 309 H 278-305 mOsm/kg Uric Acid 10.6 H 2.6-7.2 mg/dL Total Calcium 8.6 8.5-10.1 mg/dL Phosphorus Level 5.0 H 2.5-4.9 mg/dL Magnesium Level 1.90 1.80-2.40 mg/dL Iron Level 15 #L 65-175 mcg/dL Total Iron Binding Capacity 144 L 250-450 mcg/dL Percent Iron Saturation 10.4 L 30-44 % Ferritin 598 H 30-400 ng/mL Total Bilirubin 0.3 # 0.2-1.0 mg/dL Aspartate Amino Transf (AST/SGOT) 20 10-37 U/L Alanine Aminotransferase (ALT/SGPT) 19 12-78 U/L Alkaline Phosphatase 207 H 50-136 U/L Total Protein 7.1 6.0-8.3 g/dL Albumin 1.4 L 3.5-5.0 g/dL Thyroid Stimulating Hormone (TSH) 1.47 0.36-3.74 uIU/mL Whole Blood Glucose 262 H 70-110 MG/DL Urine Color LIGHT-ORANGE YELLOW Urine Appearance TURBID CLEAR Urine pH 6.5 5.0-8.0 Urine Specific [place] 1.018 1.001-1.031 Urine Protein 300 H NEGATIVE mg/dL Urine Glucose (UA) 500 H NEGATIVE mg/dL Urine Ketones NEGATIVE NEGATIVE mg/dL Urine Occult Blood LARGE H NEGATIVE Urine Nitrate NEGATIVE NEGATIVE Urine Bilirubin NEGATIVE NEGATIVE mg/dL Urine Urobilinogen 0.2 0.2-1.0 mg/dL Urine Leukocyte Esterase 500 H NEGATIVE [place]/uL Urine RBC TNTC H 0-1 /HPF Urine WBC TNTC H 0-1 /HPF Urine WBC Clumps (Auto) MANY 0-1 /HPF Urine Bacteria RARE None Seen /HPF Urine Yeast MOD None Seen /HPF Urine Random Creatinine 60.16 30-135 mg/dL Urine Random Sodium 81 40-220 mmol/l Urine Random Potassium 11 L 25-125 mmol/L Urine Random Chloride 72 L 110-250 mmol/L Blood Gas Specimen Type Venous Arterial Blood Oxygen Saturation 52.7 L 94.0-98.0 % Venous Blood pH 7.325 7.320-7.430 Venous Blood pCO2 at Patient Temp 38 38-54 Venous Blood pO2 at Patient Temp 28.4 23.0-48.0 mmHg Venous Blood HCO3 19.3 L 22.0-29.0 Venous Blood Base Excess -6.2 L -2.0-3.0 Venous Blood Total Hemoglobin 11.3 L 13.5-17.5 Sodium (Blood Gas) 129 L 136-145 MMOL/L Bedside Potassium (Blood Gas) 5.0 H 3.4-4.5 MMOL/L Bedside Chloride (Blood Gas) 101 98-107 MMOL/L Bedside Glucose (Blood Gas) 352 H 65-95 MG/DL Bedside Ionized Calcium (Blood Gas) 1.16 1.15-1.33 MMOL/L Bedside Lactic Acid (Blood Gas) 1.30 H 0.36-0.75 MMOL/L Blood Gas Temperature 37.0 35.5-37.0 CELSIUS Blood Gas Vent Mode RA ROOM AIR FiO2 21.0 % Blood Gas Specimen Comment .DR.MAMACHE ANITHA Test 12/15/24 13:42 12/15/24 11:47 12/15/24 10:10 Range/Units Erythrocyte Sedimentation Rate 133 H 0-15 MM/HR Hemoglobin A1c 14.0 H 4.0-6.0 % Estimated Average Glucose (eAG) 355 H 70-126 mg/dL Whole Blood Ketones Quantitative 0.3 0.0-0.6 mmol/L Direct Bilirubin 0.1 0.0-0.3 mg/dL Lactate Dehydrogenase 139 81-234 U/L C-Reactive Protein, Quantitative 257.00 H 0.5-3.0 mg/L Procalcitonin 0.82 H 0.05-0.5 ng/mL Bedside Glucose Comment Notified Nurse Segmented Neutrophils % 64 40-70 % Band Neutrophils % 12 H 0-2 % Lymphocytes % (Manual) 15 L 22-44 % Monocytes % (Manual) 9 2-9 % Differential Comment MANUAL DIFFERENTIAL White Cell Morphology Comment CONSISTENT W/DIFF Platelet Morphology Comment SLIGHT INCREASED Red Blood Cell Morphology See comments Lactic Acid Level 1.9 0.8-2.5 mmol/L Troponin I High Sensitivity 6 4-75 ng/L Current Medications Medications (Trade) Dose Ordered Sig/Gaby Route PRN Reason Start Time Stop Time Status Last Admin Dose Admin Atorvastatin Calcium (LIPItor 40MG) 40 mg HS PO 12/15/24 21:00 01/14/25 20:59 12/15/24 21:05 40 MG Dextrose (D50w) 50 ml AD PRN IV HYPOGLYCEMIA PROTOCOL 12/15/24 13:30 01/14/25 13:29 Famotidine (Pepcid 20mg Vial) 20 mg DAILY IV 12/16/24 09:00 01/15/25 08:59 12/16/24 09:12 20 MG Ferrous Sulfate (Ferrous Sulfate) 325 mg DAILY PO 12/16/24 09:00 01/15/25 08:59 Glucagon (Glucagon 1mg Kit) 1 mg AD PRN IM HYPOGLYCEMIA PROTOCOL 12/15/24 13:30 01/14/25 13:29 Home Med (Home Medication) (Sennosides/ Docusate Sodium (Colace 2-i... DAILY PO 12/16/24 09:00 01/15/25 08:59 Hydralazine HCl (APRESOLine 20MG INJ) 5 mg Q6H PRN IV ADMINISTER FOR SBP > 160 12/15/24 14:30 01/14/25 14:29 Hydromorphone HCl (DiLAUDid 0.5MG INJ) 0.2 mg Q6H PRN IVP SEVERE PAIN (7-10) 12/15/24 13:30 12/20/24 13:29 12/16/24 09:33 0.2 MG Insulin Glargine (LANtus 100 UNITS/ML 10 ML VIAL) 20 units DAILY SQ 12/16/24 09:00 01/14/25 20:59 Insulin Glargine (LANtus 100 UNITS/ML 10 ML VIAL) 20 units HS SQ 12/15/24 21:00 12/16/24 06:19 DC 12/15/24 21:05 20 UNITS Insulin Glargine (LANtus 100 UNITS/ML 10 ML VIAL) 25 units HS SQ 12/15/24 21:00 12/15/24 18:52 DC Insulin Human Regular (humuLIN R 100 UNIT/ML 3ML) 8 unit TIDAC SQ 12/16/24 07:30 01/15/25 07:29 Insulin Human Regular (humuLIN R 100 UNIT/ML 3ML) INSULIN SLIDING SCAL... ACHS SQ 12/15/24 16:30 12/16/24 06:19 DC 12/15/24 21:03 5 UNIT Insulin Human Regular (humuLIN R 100 UNIT/ML 3ML) INSULIN SLIDING SCAL... ACHS SQ 12/16/24 07:30 01/15/25 07:29 Linezolid 300 ml @ 150 mls/hr Q12H IV 12/15/24 21:00 12/17/24 20:59 12/16/24 09:12 150 MLS/HR Meropenem (Merrem 1gm) 1 gm Q12H IVPB 12/15/24 16:00 12/17/24 23:00 12/16/24 06:02 1 GM Pharmacy Profile Note (Pharmacy Communication) 1 each ONCE MISC 12/15/24 13:30 12/15/24 14:18 DC Sodium Chloride 1,000 ml @ 75 mls/hr [id number] IV 12/15/24 13:30 01/14/25 13:29 12/16/24 02:42 75 MLS/HR Tamsulosin HCl (FloMAX) 0.4 mg DAILY PO 12/16/24 09:00 01/15/25 08:59 Vancomycin HCl 250 ml @ 125 mls/hr Q48H IV 12/17/24 11:00 12/15/24 13:19 DC Vancomycin HCl (Vancomycin Protocol) 1 each AD IV 12/15/24 11:00 12/15/24 23:52 DC Vitamin B Complex/ Vit C/Folic Acid (Nephrovite Tablet) 1 cap DAILY PO 12/16/24 09:00 01/15/25 08:59 DIAGNOSTICS / RADIOLOGY: [ ] ASSESSMENT: Sepsis secondary to complicated urinary tract infection and scrotal cellulitis with abscess, POA Progressive scrotal cellulitis with developing right hemiscrotal abscess, POA Severe complicated urinary tract infection, POA Urinary retention status post Thomas catheter placement, POA Bilateral hydronephrosis, POA Acute kidney injury with underlying history of chronic kidney disease, POA Severe nonketotic hyperglycemia with poorly controlled type 2 diabetes mellitus, POA History of Farxiga use as outpatient, POA Hypertension, POA History of dual antiplatelet therapy with aspirin and Plavix as outpatient, POA History of coronary artery disease with prior history of coronary intervention and stenting, POA History of peripheral arterial disease with history of lower extremity angioplasty and stenting, POA History of TIA, POA Hypertension, POA Hyperlipidemia, POA Debility, POA Right eye blindness, POA Decreased vision of left eye, POA History of iron deficiency anemia, POA History of [place] [facility] [place]idymo-orchitis with abscess requiring surgical drainage,07/2024, POA PLAN: Patient evaluated by urologist, they abscesses and spontaneously draining, but the patient is still going to need formal incision and drainage. Clinical exam did not reveal findings suggestive of torsion. There was scrotal wall t hickening worse of the right side with cellulitis. Recommended IV antibiotics for now. I will request a stat ABG to assess metabolic status. Patient with low iron level, follow stool occult blood, if positive we will request GI consultation. Patient currently on ferrous sulfate 325 mg p.o. daily. Infectious Disease consultation requested, follow input and recommendation. Patient with creatinine of 3.3, nephrology input noted and appreciated. Patient is started on insulin glargine 20 units subcutaneously daily as well as insulin sliding scale, continue to follow endocrinology input and recommendation.Renal ultrasound will be ordered, discussed with the assistant inventory manager, if hydronephrosis we will request Urology consult. Follow up PSA level. NEURO: Minimize central acting medications as possible. Fall Precautions. Well lighted room through the day and minimize interruptions through the night to prevent acute delirium. PULMONARY: Supplemental 02 as needed BiPAP as necessary, for respiratory distress Titrate Fio2 to keep Spo2 > or = 90% DuoNebs and CPT as needed IS hourly while awake for pulmonary hygiene prn Out of bed to chair as tolerated Maintain aspiration precautions at all times CARDIOVASCULAR: Follow hemodynamics. Vital signs per facility protocol GI & NUTRITION: Continue nutritional support Aspirations precautions Prokinetic agents and laxatives as needed KIDNEYS & ELECTROLYTES: Strict monitoring of intake and output Daily weights Avoid nephrotoxic agents Monitor electrolytes and replace as needed Goal urine output of 30mL/hr or 0.5mL/kg/hr Medications to be dosed according to renal function. Avoid contrast if possible ENDOCRINE: Maintain blood glucose between 100-180 at all times. Insulin sliding scale for blood glucose management Hypoglycemia and hyperglycemia protocol in place INFECTIOUS DISEASE: Trend temperature, WBC and procalcitonin level Follow cultures, deescalate antibiotics as soon as possible. Panculture if new onset fever HEMATOLOGY & COAGULATION: Monitor H&H. Keep Hgb > 7 Transfuse 1 unit of PRBC for Hgb < 7 Transfuse 1 pack of platelets of platelets < 20, 000 Watch for any signs and symptoms of bleeding SKIN: Pressure ulcer prevention per facility protocol Specialty mattress as needed ORTHO/REHAB Continue PT/OT PRN: MEDICATIONS Tylenol 650 mg po every 4 hrs for fever zofran 4 mg IV every 6 hrs for n/v Hydralazine 5 mg IV every 4 hrs systolic pressure > 160 bowel regiment: lactulose 20 gm PO BID PRN constipation Supportive measures: Continue GI and DVT prophylaxis Disposition: Pending improvement in clinical condition All questions answered time spent: > 35 min JANET IVAN MD Dec 16, 2024 11:01
[2024-12-16 11:54] LABS: ABG BASE EXCESS -7.4 mmol/L (-2.0-3.0); ABG HCO3 18.4 mmol/L (21.0-28.0); ABG OXYGEN SATURATION 68.8 % (94.0-98.0); ABG PCO2 38 mmHg (35-48); ABG PH 7.299 (7.350-7.450); DEVICE COMMENT rr, marta,rn; PO2, ARTERIAL BG < 45.0 mmHg (83.0-108.0); TEMPERATURE, CELSIUS BG 37.0 CELSIUS (35.5-37.0); VENT MODE, BG ra (ROOM AIR)
[2024-12-16] MEDS: SODIUM BICARB 50MEQ 50ML VIAL IV ONE (12:34)
[2024-12-16] MEDS: SODIUM BICARBONATE 650 MG TAB PO SCH (12:35)
--- NOTE | 2024-12-16 15:40 | NUR ---
OR TEAM OR TEAM HERE TO TAKE PATIENT TO OR FOR SURGERY. PATIENT TRANSFERRED TO OR NOW.
[2024-12-16] MEDS ORDERED: LIDOCAINE HCL MPF 1% 5ML VIAL ONE (15:54)
[2024-12-16] MEDS ORDERED: SUCCINYLCHOLINE CHLORIDE 20 MG/ML 10 ML VIAL ONE (15:55)
[2024-12-16] MEDS ORDERED: MIDAZOLAM HCL 1 MG/ML 2ML VIAL ONE (15:55)
--- NOTE | 2024-12-16 17:20 | OP ---
Operative Note: DATE OF PROCEDURE: 12/16/24 SURGEON: SHAWNA JEAN-BAPTISTE MD DISTRIBUTION SALES REPRESENTATIVE: Operating room staff ANESTHESIA: General anesthesia ANESTHESIOLOGIST/SERVICE DESK MANAGER: Anesthesia staff PREOPERATIVE DIAGNOSIS: 1. Large perineal abscess/soft tissue infection POSTOPERATIVE DIAGNOSIS: 1. Large perineal abscess/soft tissue infection SYNOPSIS: Large perineal cavity. Excisional debridement of necrotic soft tissue from the perineum PROCEDURE: 1. 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 Clinical and radiographic findings were consistent with a large abscess cavity sandwiching deep into the perineum. It was draining spontaneously. He presents today for a formal drainage and debridement. DESCRIPTION OF PROCEDURE: Patient was identified in the holding area, consent verified. Patient received prophylactic antibiotics and brought to operating suite. Placed in the supine position, after induction underwent general anesthesia. Next placed in low lithotomy. Genitalia prepped and draped and a time-out performed. Since the deep perineal abscess was draining spontaneously were able to track the source of draining. An incision was made superiorly and inferiorly from this region to open up the cavity. A lot of necrotic tissue to the fascial layer we then the cavity. This was systematically drained. We noticed immediately that the abscess cavity was diving deep to us the anal rectal region. With a gloved right finger in the anus and rectum and the other finger in the deepest portion of the cavity, the two fingers could touch just with what we believe is the rectal mucosa that was a the two fingers. At this point we continued with sharp debridement extending superiorly into the scrotum. The necrotic debride the tissue was removed and sent for tissue cultur e. This was followed by copious washout of the entire wound. This was followed by packing using a moist wet-to-dry Kerlix packing. This followed by application of fluffs, ABD pads and a mesh panties. We left the Thomas catheter to gravity drainage. Patient tolerated the procedure well without any complications. Plan: I think the primary team needs to involve General surgery to ensure there is no rectal fistula. SHAWNA JEAN-BAPTISTE MD Dec 16, 2024 17:20
[2024-12-16] MEDS: SUGAMMADEX SODIUM 200 MG/2 ML VIAL IV ONE (17:50)
--- NOTE | 2024-12-16 19:48 | CONS ---
INFECTIOUS DISEASE CONSULTATION DATE OF SERVICE: 12/16/2024. REQUESTING PHYSICIAN: Joce Lomeli MD REASON FOR CONSULTATION: Scrotal abscess and antibiotic management. HISTORY OF PRESENT ILLNESS: A 49-year-old male with morbid obesity, hypertension, peripheral vascular disease, diabetes mellitus, and osteomyelitis, presented to the hospital with scrotal pain, swelling, and redness. The patient also complained of some fever and chills. T-max was 100.6. The patient denies cough, shortness of breath, no palpitation or orthopnea. Imaging was done, which shows some scrotal abscess. The patient has been seen by Urology and plan is for incision and drainage in the OR. The patient has been started on linezolid and meropenem. The patient also found with acute on chronic renal failure. BUN was 79, creatinine was 3.3. PAST MEDICAL HISTORY: * Diabetes mellitus. * Hypertension. * Dyslipidemia. * GERD. * Peripheral vascular disease. * Coronary artery disease. * Obesity. PAST SURGICAL HISTORY: * Left above-knee amputation. * Incision and drainage of gluteal abscess. * Left foot wound debridement. ALLERGIES: AMPICILLIN BUT TOLERATING MEROPENEM. CURRENT MEDICATIONS: Reviewed. SOCIAL HISTORY: . Ex-smoker. No alcohol or illicit drug use. The patient is noncompliant with diabetic diet as per the . FAMILY HISTORY: Positive for diabetes mellitus. REVIEW OF SYSTEMS: CONSTITUTIONAL: Positive for fever, chills. No weight loss or night sweats. EYES: No eye pain. No photophobia or diplopia. HENT: No sore throat. No rhinorrhea or earache. NECK: No neck pain or neck swelling. RESPIRATORY: No cough. No hemoptysis or pleuritic pain. CARDIOVASCULAR: No chest pain. No palpitation or orthopnea. GASTROINTESTINAL: Denies nausea, vomiting, or abdominal pain. GENITOURINARY: Positive for scrotal pain, swelling, and redness. CENTRAL NERVOUS SYSTEM: No headache, dyspnea, or slurred speech. PSYCHIATRY: No depression. No suicidal ideation. MUSCULOSKELETAL: No joint pain, no joint swelling. PHYSICAL EXAMINATION: GENERAL: Elderly male, awake. VITAL SIGNS: Temperature 98.2, pulse 86, respiratory rate 19, BP 113/72. EYES: No icterus. Pupils equal and reactive. HENT: No oral thrush seen. Moist oral mucosa. NECK: Supple. No JVD or thyromegaly. LUNGS: Good air entry. No rales, no rhonchi. CARDIOVASCULAR: S1, S2, regular. No murmur heard. ABDOMEN: Obese, soft, nontender. Bowel sound is present. CENTRAL NERVOUS SYSTEM: The patient is awake, alert, oriented x 3. No focal deficits. SKIN: No rashes, no itchiness. LYMPHATIC: No peripheral lymphadenopathy. BACK: No deformity. No pressure ulcer. GENITOURINARY: Area of erythema drainage involving the scrotum. No seen. LABORATORY DATA: Sodium 131, potassium 4.4, BUN 79, creatinine 3.3. WBC 14.8, hemoglobin 10.3, platelets 424. Urinalysis; wbc's too numerous to count. Urine culture is growing gram-negative rods. RADIOLOGY: CT of the abdomen result reviewed. ASSESSMENT: A 49-year-old male presented with scrotal pain, swelling, and redness and fever. CURRENT PROBLEMS: Include: * Sepsis. * UTI. * Scrotal abscess. * Hydronephrosis. * Acute renal failure. * Obesity. * Diabetes mellitus. * Debility. PLAN: * Continue meropenem. * Continue linezolid. * Continue Flomax. * Continue wound care. * Continue pain management. * Continue antidiabetic. * Continue antihypertensive. * Continue medication as above. * The patient will be followed up closely. Thank you for allowing me to participate in the care of this patient. TID: [id number] RECEIPT: [id number]
[2024-12-17] VITALS (24 sets, daily range): BP systolic 113–162; BP diastolic 64–96; PULSE 65–95; RESP 12–22; TEMP 97.1–98; O2SAT 96–98
[2024-12-17 05:23] LABS: NUCLEATED RED BLOOD CELLS 0.0 % (0.0-0.19); PLATELET COUNT (AUTO) 497.0 K/uL (130-400); RED BLOOD CELL COUNT(AUTO) 4.42 MIL/uL (4.50-6.20); RED CELL DISTRIBUTION WIDTH 13.6 % (11.0-15.5); WHITE BLOOD COUNT (AUTO) 12.4 K/uL (4.8-10.8)
[2024-12-17 05:47] LABS: ASPARTATE AMINOTRANSFERASE 19.0 U/L (10-37); CREATININE 2.3 mg/dL (0.5-1.3); GLOMERULAR FILTR. RATE CALC 34.0 mL/min (>90); PHOSPHORUS 5.0 mg/dL (2.5-4.9); SODIUM SERUM 132.0 mmol/L (136-145); TOTAL PROTEIN, SERUM 7.5 g/dL (6.0-8.3); UREA NITROGEN, BLOOD 67.0 mg/dL (7-18)
[2024-12-17 05:54] LABS: GLUCOSE,RANDOM 430.0 mg/dL (70-105)
--- NOTE | 2024-12-17 07:32 | CONS ---
CONSULT NOTE: Endocrinology Consult Chief complaint: scrotal pain and swelling Reason for consult: uncontrolled dm-2 DOS: 12/17/24 HISTORY OF PRESENT ILLNESS: 49-year-old male with history of poorly controlled type 2 diabetes mellitus, hypertension, hyperlipidemia, GERD, peripheral arterial disease, history of coronary artery disease with prior history of coronary stenting, peripheral arterial disease with prior history of angioplasty and stenting, morbid obesity, history of scrotal cellulitis with abscess requiring hospitalization in [facility] on 07/2024. Patient presented to the ER for further evaluation of progressive pain, swelling to the right side of the scrotum ongoing for the past three days. Pain is moderate in intensity involving the right hemiscrotum. Patient reports having subjective fevers, chills as well feels. Reports having dysuria and suprapubic discomfort as well. Patient reports that he was previously hospitalized in [facility] on 07/2024 where he was found to have right epididymo-orchitis. Patient during his hospitalization needed incision and drainage with debridement of right perineal and Ischiorectal abscess tracking into the scrotum by Dr. Choudhury on 08/01/2024. During this hospitalization had urinary retention requiring Thomas catheter placement. Discharged to long-term acute care for further IV antibiotic therapy. Patient underwent testicular ultrasound which showed findings of right scrotal wall abscess and mildly reduced flow to the right testicle. Patient underwent CT abdomen pelvis without contrast which showed findings of severe bilateral hydronephrosis with pyelonephritis, cystitis, and 3.6 cm x 5.1 cm right penoscrotal hypodense collection concerning for abscess. now s/p surgery for deep perineal abscess. Home diabetic regimen: lantus 50 units daily, lispro insulin 25 units tid before meals, janumet mg bid Hba1c 14% REVIEW OF SYSTEMS CONSTITUTIONAL: fevers, chills and malaise NEUROLOGICAL: Denies headache, amaurosis fugax, motor weakness, sensory deficit , vertigo/spinning sensation, gait abnormalities, or tremors. ENT: No hearing loss, otalgia, otorrhea, rhinitis, rhinorrhea, hoarseness, or sore throat. CARDIOVASCULAR: Denies any exertional angina, dyspnea on exertion, orthopnea, paroxysmal nocturnal dyspnea, palpitations, life-threatening arrhythmias, claudication. PULMONARY: Denies any shortness of breath, cough, phlegm/sputum, hemoptysis, pleuritic chest pain. SLEEP: Denies morning headaches, daytime somnolence or napping. Denies difficulty falling asleep, staying asleep, waking from sleep. Denies knowledge of snoring. GASTROINTESTINAL: Denies any type of dysphagia to either liquids or solids. Denies nausea, vomiting, pyrosis, early satiety, abdominal pain, diarrhea, constipation, or changes in stool consistency or caliber. Denies coffee-ground emesis, hematemesis, hematochezia, or melanotic stools. GENITOURINARY: redness, swelling and pain to the right side of the scrotum ENDOCRINOLOGIC: poorly controlled DM II with hyperglycemia HEMATOLOGIC: Denies thrombophilia/previous clots, or coagulopathy/bleeding disorders. ONCOLOGIC: Denies personal history of malignancy. DERMATOLOGIC: redness and swelling to the right richie-scrotum PSYCHIATRIC: Denies any suicidal or homicidal ideation. Denies hallucinations. 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 Choudhury on 07/2024 PAST SOCIAL HISTORY: [Patient lives with his . Patient denies alcohol tobacco and recreational drug use . Patient states he used to smoke cigarette for 17 years two packs per day and quit two years ago] Allergies: Morphine causes headache Home medications: patient reports being on [id number] mg daily, [id number] mg daily, Lantus 50 units daily, insulin lispro,5 units b.i.d. p.c., losartan 50 mg daily, Colace daily, Janumet twice daily, Flomax 0.4 mg daily, clotrimazole cream twice daily, ferrous [id number] mg daily, Lipitor 40 mg daily Coded Allergies: morphine (Unverified Allergy, Intermediate, HALLUCINATIONS, 02/13/23) PHYSICAL EXAM GENERAL APPEARANCE: The patient is awake, alert, and oriented, in no acute cardiopulmonary distress. NEUROLOGICAL: Cranial nerves II-XII grossly intact. Motor is 5/5 in bilateral upper and lower extremities proximal to distal. No sensory deficits. HEENT: Face is symmetric. Pupils are equal and reactive. Extraocular movements are intact. NECK: Supple. No JVD. No thyromegaly. No submental, submandibular, pre-/postauricular, occipital or supraclavicular lymphadenopathy. CHEST: Normal chest expansion. No Telemetry. LUNGS: Absence of any rales, rhonchi or any wheezing. CARDIOVASCULAR: Regular. S1 and S2 normal. No appreciable rubs, murmurs or gallops. ABDOMEN: Soft, nontender, and nondistended. There is no rebound, voluntary guarding, or rigidity. : Thomas catheter noted draining cloudy urine, significant redness and swelling noted of the scrotum, mild tenderness to palpation EXTREMITIES: No significant swelling noted DIAGNOSTICS / RADIOLOGY: SERVICE 1040 REASON: urinary retention, testicular swelling wo per provider ORDERING PHYSICIAN: NYLA MORALES PROCEDURE: ABD PEL WO - CT ABDOMEN/PELVIS W/O CONTRAST EXAM: CT Abdomen and Pelvis Without IV contrast CLINICAL HISTORY: urinary retention, testicular swelling wo per provider TECHNIQUE: Axial computed tomography images of the abdomen and pelvis without intravenous contrast. CONTRAST: No IV contrast. COMPARISON: [facility] dated 02/08/23 FINDINGS: LUNG BASES: There are atelectatic bands within the bilateral lower lobes. LIVER: Unremarkable. GALLBLADDER AND BILE DUCTS: Post cholecystectomy status with surgical clips in situ. PANCREAS: Unremarkable. SPLEEN: Unremarkable. ADRENAL GLANDS: Unremarkable. KIDNEYS, URETERS, AND BLADDER: There is marked concentric bladder wall thickening, more pronounced posteriorly, with perivesicular fat stranding likely reflecting cystitis. There is reflux within the bilateral ureters resulting in severe bilateral hydronephrosis and also bilateral perinephric fat stranding reflecting pyelonephritis. There is no radiopaque calculus appreciated. STOMACH AND BOWEL: Unremarkable appearance of the stomach and bowel. No evidence of bowel obstruction. No evidence suggesting enteritis or colitis. APPENDIX: No evidence of acute appendicitis on CT examination. PERITONEUM: Small 7 mm fat-containing umbilical hernia. LYMPH NODES: No lymphadenopathy is evident. REPRODUCTIVE: A well-defined hypodense collection along the right penoscrotal region, measuring 6 x 5.1 cm, concerning for abscess. VASCULATURE: Atherosclerotic changes of the abdominal aorta. BONES: No aggressive appearing osseous lesion. No acute osseous pathology evident. IMPRESSION: 1. Severe bilateral hydronephrosis with pyelonephritis and perinephric fat stranding. 2. Marked bladder wall thickening with perivesicular fat stranding, compatible with cystitis. 3. 6 x 5.1 cm right penoscrotal hypodense collection, concerning for abscess. /[place] DICTATED BY: ALICE LEARY Jr., MD DATE: 12/15/24 1459 ELECTRONICALLY SIGNED BY: ALICE LEARY Jr., MD DATE: 12/15/24 1459 ELECTRONICALLY SIGNED BY: DATE: EXAM: US Scrotum. CLINICAL HISTORY: TESTICULAR PAIN/SWELLING TECHNIQUE: Real-time ultrasound of the scrotum with color Doppler and image documentation. COMPARISON: Study dated 07/29. FINDINGS: RIGHT TESTICLE: Normal in size (3.3 cm x 1.5 cm x 2.4 cm) and echogenicity, no abnormal mass. Mildly reduced Doppler flow. LEFT TESTICLE: Normal in size (3.6 cm x 1.4 cm x 2.1 cm) and echogenicity, no abnormal mass. Normal Doppler flow. EPIDIDYMIDES: Within normal limits in size and vascularity. A 3 x 3 x 3 mm cyst along the head of the right epididymis. SCROTUM: There is significant improvement of previously documented abscess measuring 2.5 x 2.2 cm along the right scrotal wall (6 mm). No hydrocele, varicocele seen. IMPRESSION: 1. Scrotal wall abscess along the right side, measuring 2.5 x 2.2 cm, showing significant improvement/reduction in size. 2. Mildly reduced blood flow to the right testicle. Clinical correlation is advised for possible intermittent right testicular torsion. /[place] DICTATED BY: ALICE LEARY Jr., MD DATE: 12/15/24 1324 ELECTRONICALLY SIGNED BY: ALICE LEARY Jr., MD DATE: 12/15/24 1324 ASSESSMENT: uncontrolled DM-2 and hyperglycemia insulin adjusted and glucose runs greater than 300 mg/dl. now s/p surgery for deep perineal abscess. Home diabetic regimen: lantus 50 units daily, lispro insulin 25 units tid before meals, janumet mg bid Hba1c 14% Sepsis secondary to complicated urinary tract infection and scrotal cellulitis with abscess, POA s/p surgery Progressive scrotal cellulitis with developing right hemiscrotal abscess, POA Severe complicated urinary tract infection, POA Urinary retention status post Thomas catheter placement, POA Bilateral hydronephrosis, POA Acute kidney injury with underlying history of chronic kidney disease, POA History of Farxiga use as outpatient, POA but off due to hx of perineal abscess Hypertension, POA History of dual antiplatelet therapy with aspirin and Plavix as outpatient, POA History of coronary artery disease with prior history of coronary intervention and stenting, POA History of peripheral arterial disease with history of lower extremity angioplasty and stenting, POA History of TIA, POA Hypertension, POA Hyperlipidemia, POA Debility, POA Right eye blindness, POA Decreased vision of left eye, POA History of iron deficiency anemia, POA History of hospitalization in [facility] for right epididymo-orchitis with abscess requiring surgical drainage,07/2024, POA PLAN: increase Lantus to 50 units daily and adjust for fasting glucose. increase Regular insulin to 15 units daily and adjust for post-prandial glucose. Continue medium dose sliding scale insulin. Monitor glucose q x 6 hourly. Continue carb consistent diet. Keep glucose less than 180 mg/dl. Thanks for allowing me to participate in patient care and will continue to follow up. Vital Signs 12/16/24 12/16/24 12/17/24 12/17/24 18:00 20:15 00:02 04:00 Temp 98.1 Pulse 89 Resp 20 B/P (MAP) 123/73 Pulse Ox 99 O2 Delivery Room Air O2 Flow Rate 2.0 FiO2 28 Hematology Labs: Test 12/17/24 05:13 12/16/24 05:17 12/15/24 13:42 12/15/24 10:10 Range/Units White Blood Count 12.4 H 4.8-10.8 K/uL Red Blood Count 4.42 L 4.50-6.20 MIL/uL Hemoglobin 11.0 L 14.0-18.0 g/dL Hematocrit 34.7 L 42-54 % Mean Corpuscular Volume 78.5 L 79-99 fL Mean Corpuscular Hemoglobin 24.9 L 27.0-33.0 pg Mean Corpuscular Hemoglobin Concent 31.7 L 32.0-36.0 g/dL Red Cell Distribution Width 13.6 11.0-15.5 % Platelet Count 497 H 130-400 K/uL Mean Platelet Volume 10.0 7.5-10.5 fL Nucleated Red Blood Cells 0.0 0.0-0.19 % Immature Granulocyte % (Auto) 0.5 0-1 % Neutrophils (%) (Auto) 78.8 H 40.0-77.0 % Lymphocytes (%) (Auto) 12.9 L 21.0-51.0 % Monocytes (%) (Auto) 7.2 3.0-13.0 % Eosinophils (%) (Auto) 0.5 0.0-8.0 % Basophils (%) (Auto) 0.1 0.0-5.0 % Neutrophils # (Auto) 11.6 H 1.8-7.7 K/uL Lymphocytes # (Auto) 1.9 1.0-4.8 K/uL Monocytes # (Auto) 1.1 H 0.1-1.0 K/uL Eosinophils # (Auto) 0.07 0.00-0.70 K/uL Basophils # (Auto) 0.02 0.00-0.20 K/uL Absolute Immature Granulocyte (auto 0.08 0-1 K/uL Erythrocyte Sedimentation Rate 133 H 0-15 MM/HR Segmented Neutrophils % 64 40-70 % Band Neutrophils % 12 H 0-2 % Lymphocytes % (Manual) 15 L 22-44 % Monocytes % (Manual) 9 2-9 % Differential Comment MANUAL DIFFERENTIAL White Cell Morphology Comment CONSISTENT W/DIFF Platelet Morphology Comment SLIGHT INCREASED Red Blood Cell Morphology See comments Chemistry Labs: Test 12/17/24 05:13 12/17/24 05:01 12/16/24 05:17 12/15/24 13:42 Range/Units Sodium Level 132 L 136-145 mmol/L Potassium Level 5.1 3.5-5.1 mmol/L Chloride Level 102 101-111 mmol/L Carbon Dioxide Level 20 L 21-32 mmol/L Blood Urea Nitrogen 67 H 7-18 mg/dL Creatinine 2.3 H 0.5-1.3 mg/dL Glomerular Filtration Rate Calc 34 >90 mL/min Random Glucose 430 #*H 70-105 mg/dL Total Calcium 8.8 8.5-10.1 mg/dL Phosphorus Level 5.0 H 2.5-4.9 mg/dL Magnesium Level 2.00 1.80-2.40 mg/dL Total Bilirubin 0.2 # 0.2-1.0 mg/dL Aspartate Amino Transf (AST/SGOT) 19 10-37 U/L Alanine Aminotransferase (ALT/SGPT) 15 # 12-78 U/L Alkaline Phosphatase 229 H 50-136 U/L Total Protein 7.5 6.0-8.3 g/dL Albumin 1.5 L 3.5-5.0 g/dL Whole Blood Glucose 403 #*H 70-110 MG/DL Bedside Glucose Comment Notified Nurse Serum Osmolality 309 H 278-305 mOsm/kg Uric Acid 10.6 H 2.6-7.2 mg/dL Iron Level 15 #L 65-175 mcg/dL Total Iron Binding Capacity 144 L 250-450 mcg/dL Percent Iron Saturation 10.4 L 30-44 % Ferritin 598 H 30-400 ng/mL Thyroid Stimulating Hormone (TSH) 1.47 0.36-3.74 uIU/mL Hemoglobin A1c 14.0 H 4.0-6.0 % Estimated Average Glucose (eAG) 355 H 70-126 mg/dL Whole Blood Ketones Quantitative 0.3 0.0-0.6 mmol/L Direct Bilirubin 0.1 0.0-0.3 mg/dL Lactate Dehydrogenase 139 81-234 U/L C-Reactive Protein, Quantitative 257.00 H 0.5-3.0 mg/L Procalcitonin 0.82 H 0.05-0.5 ng/mL Test 12/15/24 10:10 Range/Units Lactic Acid Level 1.9 0.8-2.5 mmol/L Troponin I High Sensitivity 6 4-75 ng/L Current Medications Medications (Trade) Dose Ordered Sig/Gaby Route Start Time Stop Time Status Last Admin Dose Admin Atorvastatin Calcium (LIPItor 40MG) 40 mg HS PO 12/15/24 21:00 01/14/25 20:59 12/16/24 21:33 40 MG Famotidine (Pepcid 20mg Vial) 20 mg DAILY IV 12/16/24 09:00 01/15/25 08:59 12/16/24 09:12 20 MG Ferrous Sulfate (Ferrous Sulfate) 325 mg DAILY PO 12/16/24 09:00 01/15/25 08:59 Home Med (Home Medication) (Sennosides/ Docusate Sodium (Colace 2-i... DAILY PO 12/16/24 09:00 01/15/25 08:59 Insulin Glargine (LANtus 100 UNITS/ML 10 ML VIAL) 20 units DAILY SQ 12/16/24 09:00 01/14/25 20:59 Insulin Glargine (LANtus 100 UNITS/ML 10 ML VIAL) 20 units HS SQ 12/15/24 21:00 12/16/24 06:19 DC 12/15/24 21:05 20 UNITS Insulin Glargine (LANtus 100 UNITS/ML 10 ML VIAL) 25 units HS SQ 12/15/24 21:00 12/15/24 18:52 DC Insulin Human Regular (humuLIN R 100 UNIT/ML 3ML) 8 unit TIDAC SQ 12/16/24 07:30 01/15/25 07:29 12/17/24 06:59 8 UNIT Insulin Human Regular (humuLIN R 100 UNIT/ML 3ML) INSULIN SLIDING SCAL... ACHS SQ 12/15/24 16:30 12/16/24 06:19 DC 12/15/24 21:03 5 UNIT Insulin Human Regular (humuLIN R 100 UNIT/ML 3ML) INSULIN SLIDING SCAL... ACHS SQ 12/16/24 07:30 01/15/25 07:29 12/17/24 06:05 14 UNIT Linezolid 300 ml @ 150 mls/hr Q12H IV 12/15/24 21:00 12/17/24 20:59 12/16/24 21:33 150 MLS/HR Meropenem (Merrem 1gm) 1 gm Q12H IVPB 12/15/24 16:00 12/17/24 23:00 12/17/24 05:31 1 GM Pharmacy Profile Note (Pharmacy Communication) 1 each ONCE MISC 12/15/24 13:30 12/15/24 14:18 DC Sodium Bicarbonate (Sodium Bicarbonate) 650 mg QID PO 12/16/24 13:00 01/15/25 12:59 12/16/24 21:33 650 MG Sodium Chloride 1,000 ml @ 75 mls/hr [id number] IV 12/15/24 13:30 01/14/25 13:29 12/17/24 01:40 75 MLS/HR Tamsulosin HCl (FloMAX) 0.4 mg DAILY PO 12/16/24 09:00 01/15/25 08:59 Vancomycin HCl 250 ml @ 125 mls/hr Q48H IV 12/17/24 11:00 12/15/24 13:19 DC Vancomycin HCl (Vancomycin Protocol) 1 each AD IV 12/15/24 11:00 12/15/24 23:52 DC Vitamin B Complex/ Vit C/Folic Acid (Nephrovite Tablet) 1 cap DAILY PO 12/16/24 09:00 01/15/25 08:59 CINDY HALE MD Dec 17, 2024 07:32
--- NOTE | 2024-12-17 08:45 | HMCIMG ---
EXAMINATION: ULTRASOUND OF THE RETROPERITONEUM. CLINICAL HISTORY: Renal failure. COMPARISON: CT abdomen and pelvis without contrast dated 12/15/2024. TECHNIQUE: Real-time grayscale ultrasound images of the kidneys. FINDINGS: The kidneys are normal in caliber, the right kidney measures 11.9 x 5.0 x 7.8 cm and the left kidney measures 13.0 x 7.6 x 3.8 cm in its craniocaudal, AP, and transverse dimensions respectively. There is normal renal cortical thickness, and cortical echogenicity. There is no renal calculus or hydronephrosis. The urinary bladder is empty with Thomas???s bulb. There is wall thickening (0.6 cm). IMPRESSION: Urinary bladder wall thickening of concern for cystitis. Recommend urine routine. Previously demonstrated bilateral moderate hydroureteronephrosis is not visualized. /[place]
[2024-12-17 09:11] LABS: ABG BASE EXCESS -6.9 mmol/L (-2.0-3.0); ABG HCO3 18.4 mmol/L (21.0-28.0); ABG OXYGEN SATURATION 97.1 % (94.0-98.0); ABG PCO2 36 mmHg (35-48); ABG PH 7.322 (7.350-7.450); CARBON MONOXIDE 0.7 % (0.5-1.5); DEVICE COMMENT RR MARTA; PO2, ARTERIAL BG 99.8 mmHg (83.0-108.0); TEMPERATURE, CELSIUS BG 37.0 CELSIUS (35.5-37.0); VENT MODE, BG 2LNC (ROOM AIR)
--- NOTE | 2024-12-17 09:15 | NUR ---
PATIENT CONDITION NOTED PATIENT LETHARGIC, AROUSEABLE TO LOUD VOICE, BUT FELL ASLEEP WITHIN SECONDS OF CONVERSATION. PATIENT WITH SLURRED SPEECH, INCREASED CONFUSION WHICH IS SIGNIFICANTLY DIFFERENT FROM YESTERDAY. INTERMEDIATE FRAME TENDER, RN HAD STATED THAT HE HAD NOTICED DISORIENTATION AFTER IV DILAUDID DOSE. PATIENT LAST RECEIVED DILAUDID AROUND 0400 THIS MORNING. PATIENT DISORIENTED TO LOCATION, BELIEVES THAT HE WAS IN THE CLINIC. UNABLE TO KEEP PATIENT AWAKE FOR A COMPLETE SENTENCE. NOTED LEFT ARM WEAKNESS. DR. IVAN NOTIFIED OF PATIENT BEING LETHARGIC AND CONFUSED. CODE STROKE CALLED AND MICHAEL JORDAN CAME AND PERFORMED INITIAL NIH.ORDERS RECEIVED. PATIENT WAS YELLING AND AT ASSEMBLER ARRANGER AROUND 0800 THIS MORNING WITHOUT ANY SLURRED SPEECH OR NOTED LEFT ARM WEAKNESS.
--- NOTE | 2024-12-17 09:55 | HMCIMG ---
EXAM: Non-contrast CT examination of the Brain CLINICAL HISTORY: Rule out stroke. Altered mental status. TECHNIQUE: Thin collimated axial CT images of the brain were obtained, with sagittal and coronal reformatted images also submitted. CT scan done according to ALARA (As Low as Reasonably Achievable). CONTRAST USED: None. COMPARISON: Prior CT brain dated 02/02/23. FINDINGS: No acute intracranial abnormality is present. No acute cortical infarction, hemorrhage, mass, or mass effect. Mild generalized cerebral atrophy. No hydrocephalus or abnormal extra-axial fluid collections. Stable encephalomalacia in the bilateral inferior cerebellar hemispheres. The skull base and calvarium are intact. The mastoid air cells are clear. Mucosal disease in the visualized right maxillary sinus. IMPRESSION: No acute intracranial abnormality is present. Stable encephalomalacia in the bilateral inferior cerebellar hemispheres suggesting sequelae of prior insult. No significant interval change. /[place]
--- NOTE | 2024-12-17 10:50 | CONS ---
[facility] CONSULTATION NOTE Date Patient Seen: Dec 17, 2024 Time of Visit: 10:50 Supervising Physician: Adam Lewis MD Reason for Consultation: [facility] Primary Care Physician: Godwin Mc MD Outpatient Specialists: [ ] Inpatient Consults: Dr Francisco. Dr Kruse, Dr Oropeza, Dr Estrella, Dr Lewis, MD Dr Hernandes Attending Physician: [facility] team PROBLEM LIST: Acute Toxic encephalopathy due to opioid use (hydromorphone) on 12/17/24 Perineal abscess, status post drainage and excisional debridement on 12/16/2024 Sepsis Urinary tract infection Leukocytosis Acute renal failure Hydronephrosis Diabetes mellitus Recent right Scrotal wall abscess with I&D and debridement on 08/01/2024 Previous Hx of TIA HPI: This is 49 yr old chronically ill male with uncontrolled T2DM, recurrent scrotal abscess, HTN, HLD, GERD, PAD, Hx of CAD with Prior Hx of coronary stenting, PAD with prior Hx of angioplasty and stenting. morbid obesity, He presented for progressive swelling, pain and drainage for the past 3 days to scrotal abscess. Today is s/p Day #1 of I&D of deep perineal abscess extending towards the rectal region. pt developed an episode of AMS. At approximately 0915 pt was wake only to loud voice but easily falling asleep, Code stroke was called in the PCCU floor and pt transferred to ICU . NIH of 2 We were consulted for critical care management. Per RN earlier today he was administered Dilaudid for pain. Pt has currently NIH of 2, no focal weakness. Appears very sleepy. Likely from poor kidney function and Dialudid use. Still pending MRI brain and stroke work up. CT Head negative for any intracranial bleed. Pt has bee n having high blood sugars and we will continues with ISS and Lantus as scheduled/ While NPO may home AC scheduled insulin. For now we will continue supportive measures o2 supplementation to keep o2 sat above 92%. ABG shows metabolic acidosis. Blood gas PH 7.32/ 36/99.8/18.4 and bas excess -6.9. Agap is closed. Started pt on Bicarb gtt at 50ml/hr. reevaluate in am for DC of gtt, PAST MEDICAL HX: see above PAST SURGICAL HX: noncontributory SOCIAL HISTORY: No tobacco, ETOH, or illicit drug use Coded Allergies: morphine (Unverified Allergy, Intermediate, HALLUCINATIONS, 02/13/23) REVIEW OF SYSTEMS: unable to perform PHYSICAL EXAM: GENERAL: lethargic weak, awake oriented x 2 HEENT: EOMI, Sclera non icteric, moist mucosa NECK: Supple, no JVD, trachea midline LUNGS: Clear breath sounds bilaterally. No wheezes HEART: Regular rate and rhythm. Normal S1 and S2, without murmurs ABD: Abdomen soft, nontender. Bowel sounds present, wet to dry dressing to scrotal region. EXT: No clubbing cyanosis or edema NEURO: Alert and oriented to person, follows commands Vital Signs (last 8hr) Date Time Temp Pulse Resp B/P (MAP) Pulse Ox O2 Delivery O2 Flow Rate FiO2 12/17/24 09:17 161/79 12/17/24 09:16 65 139/87 98 12/17/24 09:16 67 137/85 99 12/17/24 09:15 65 126/82 92 12/17/24 09:13 138/79 12/17/24 09:13 141/80 12/17/24 09:12 124/71 12/17/24 09:00 96 Nasal Cannula* 2 28 12/17/24 08:00 97.2 74 21 146/80 98 Nasal Cannula 2.0 12/17/24 04:00 98.1 89 20 123/73 99 LABS: Hematology Labs: Test 12/17/24 05:13 12/16/24 05:17 12/15/24 13:42 Range/Units White Blood Count 12.4 H 4.8-10.8 K/uL Red Blood Count 4.42 L 4.50-6.20 MIL/uL Hemoglobin 11.0 L 14.0-18.0 g/dL Hematocrit 34.7 L 42-54 % Mean Corpuscular Volume 78.5 L 79-99 fL Mean Corpuscular Hemoglobin 24.9 L 27.0-33.0 pg Mean Corpuscular Hemoglobin Concent 31.7 L 32.0-36.0 g/dL Red Cell Distribution Width 13.6 11.0-15.5 % Platelet Count 497 H 130-400 K/uL Mean Platelet Volume 10.0 7.5-10.5 fL Nucleated Red Blood Cells 0.0 0.0-0.19 % Immature Granulocyte % (Auto) 0.5 0-1 % Neutrophils (%) (Auto) 78.8 H 40.0-77.0 % Lymphocytes (%) (Auto) 12.9 L 21.0-51.0 % Monocytes (%) (Auto) 7.2 3.0-13.0 % Eosinophils (%) (Auto) 0.5 0.0-8.0 % Basophils (%) (Auto) 0.1 0.0-5.0 % Neutrophils # (Auto) 11.6 H 1.8-7.7 K/uL Lymphocytes # (Auto) 1.9 1.0-4.8 K/uL Monocytes # (Auto) 1.1 H 0.1-1.0 K/uL Eosinophils # (Auto) 0.07 0.00-0.70 K/uL Basophils # (Auto) 0.02 0.00-0.20 K/uL Absolute Immature Granulocyte (auto 0.08 0-1 K/uL Erythrocyte Sedimentation Rate 133 H 0-15 MM/HR Chemistry Labs: Test 12/17/24 09:22 12/17/24 08:57 12/17/24 05:13 12/17/24 05:01 Range/Units Ammonia < 10 L 11-32 umol/L Whole Blood Glucose 339 H 70-110 MG/DL Sodium Level 132 L 136-145 mmol/L Potassium Level 5.1 3.5-5.1 mmol/L Chloride Level 102 101-111 mmol/L Carbon Dioxide Level 20 L 21-32 mmol/L Blood Urea Nitrogen 67 H 7-18 mg/dL Creatinine 2.3 H 0.5-1.3 mg/dL Glomerular Filtration Rate Calc 34 >90 mL/min Random Glucose 430 #*H 70-105 mg/dL Total Calcium 8.8 8.5-10.1 mg/dL Phosphorus Level 5.0 H 2.5-4.9 mg/dL Magnesium Level 2.00 1.80-2.40 mg/dL Total Bilirubin 0.2 # 0.2-1.0 mg/dL Aspartate Amino Transf (AST/SGOT) 19 10-37 U/L Alanine Aminotransferase (ALT/SGPT) 15 # 12-78 U/L Alkaline Phosphatase 229 H 50-136 U/L Total Protein 7.5 6.0-8.3 g/dL Albumin 1.5 L 3.5-5.0 g/dL Bedside Glucose Comment Notified Nurse Test 12/16/24 05:17 12/15/24 13:42 Range/Units Serum Osmolality 309 H 278-305 mOsm/kg Uric Acid 10.6 H 2.6-7.2 mg/dL Iron Level 15 #L 65-175 mcg/dL Total Iron Binding Capacity 144 L 250-450 mcg/dL Percent Iron Saturation 10.4 L 30-44 % Ferritin 598 H 30-400 ng/mL Thyroid Stimulating Hormone (TSH) 1.47 0.36-3.74 uIU/mL Hemoglobin A1c 14.0 H 4.0-6.0 % Estimated Average Glucose (eAG) 355 H 70-126 mg/dL Whole Blood Ketones Quantitative 0.3 0.0-0.6 mmol/L Direct Bilirubin 0.1 0.0-0.3 mg/dL Lactate Dehydrogenase 139 81-234 U/L C-Reactive Protein, Quantitative 257.00 H 0.5-3.0 mg/L Procalcitonin 0.82 H 0.05-0.5 ng/mL DIAGNOSTICS / RADIOLOGY RESULTS: [[facility] [address] [place] [address] IMAGING REPORT Addendum PATIENT: ASHA SUERO MR#: [id number] : 1975 SEX: M AGE: 49 LOCATION: [facility] ORDER [id number] STATUS: ADM IN REPORT#: [id number] SERVICE 0908 REASON: S ORDERING PHYSICIAN: AJNET IVAN MD PROCEDURE: HEAD WO - CT HEAD/BRAIN W/O CONTRAST ADDENDUM REPORT ADDENDUM: Results were shared by telephone at 11:10 am on 12/17/24 and acknowledged by Isaias Robb /[place] EXAM: Non-contrast CT examination of the Brain CLINICAL HISTORY: Rule out stroke. Altered mental status. TECHNIQUE: Thin collimated axial CT images of the brain were obtained, with sagittal and coronal reformatted images also submitted. CT scan done according to JESUS (As Low as Reasonably Achievable). CONTRAST USED: None. COMPARISON: Prior CT brain dated 02/02/23. FINDINGS: No acute intracranial abnormality is present. No acute cortical infarction, hemorrhage, mass, or mass effect. Mild generalized cerebral atrophy. No hydrocephalus or abnormal extra-axial fluid collections. Stable encephalomalacia in the bilateral inferior cerebellar hemispheres. The skull base and calvarium are intact. The mastoid air cells are clear. Mucosal disease in the visualized right maxillary sinus. IMPRESSION: No acute intracranial abnormality is present. Stable encephalomalacia in the bilateral inferior cerebellar hemispheres suggesting sequelae of prior insult. No significant interval change. /[place] DICTATED BY: ALICE LEARY Jr., MD DATE: 12/17/24 1112 ELECTRONICALLY SIGNED BY: DATE: EXAM: Non-contrast CT examination of the Brain CLINICAL HISTORY: Rule out stroke. Altered mental status. TECHNIQUE: Thin collimated axial CT images of the brain were obtained, with sagittal and coronal reformatted images also submitted. CT scan done according to ALARA (As Low as Reasonably Achievable). CONTRAST USED: None. COMPARISON: Prior CT brain dated 02/02/23. FINDINGS: No acute intracranial abnormality is present. No acute cortical infarction, hemorrhage, mass, or mass effect. Mild generalized cerebral atrophy. No hydrocephalus or abnormal extra-axial fluid collections. Stable encephalomalacia in the bilateral inferior cerebellar hemispheres. The skull base and calvarium are intact. The mastoid air cells are clear. Mucosal disease in the visualized right maxillary sinus. IMPRESSION: No acute intracranial abnormality is present. Stable encephalomalacia in the bilateral inferior cerebellar hemispheres suggesting sequelae of prior insult. No significant interval change. /[place] DICTATED BY: ALICE LEARY Jr., MD DATE: 12/17/24 1054 ELECTRONICALLY SIGNED BY: ALICE LEARY Jr., MD DATE: 12/17/24 1054 ] PLAN decrease Dilaudid to q 8 prn . avoid if pain may be controlled with non opioid. Tylenol IV x1 dose for pain. bicarb gtt continue lantus and ISS NPO for now bedside swallow eval follow endocrinology recs MRI brain us carotids MRA head and neck neuro checks follow neurology recommendations. restart baby asa If no further invasive procedures restart pt on his plavix DVT PPX with heparin GI PPX with Protonix NEURO: Minimize central acting medications as possible. Fall Precautions. Well lighted room through the day and minimize interruptions through the night to prevent acute delirium. PULMONARY: Supplemental 02 as needed Titrate Fio2 to keep Spo2 > or = 90% DuoNebs and CPT as needed IS hourly while awake for pulmonary hygiene Out of bed to chair as tolerated VAP Bundle ABG CARDIOVASCULAR: Follow hemodynamics. Titrate vasopressor to keep MAP >65 or systolic blood pressure >95mmHg DRIPS: bicarb gtt at 50 ml/HR LINES: PIV GI & NUTRITION: Continue nutritional support Aspirations precautions Prokinetic agents and laxatives as needed KIDNEYS & ELECTROLYTES: Strict monitoring of intake and output Daily weights Avoid nephrotoxic agents Monitor electrolytes and replace as needed Goal urine output of 30mL/hr or 0.5mL/kg/hr ENDOCRINE: Maintain blood glucose between 100-180 at all times. Insulin sliding scale for blood glucose management INFECTIOUS DISEASE: Trend temperature. Rivero-culture if febrile. Micro: [ ] urine yeast species 12/15/24- Blood cultures no growth Antibiotics: Zyvox and meropenem HEMATOLOGY & COAGULATION: Monitor H&H. Keep Hgb > 7 Transfuse 1 unit of PRBC for Hgb < 7 Transfuse 1 pack of platelets of platelets < 20, 000 Watch for any signs and symptoms of bleeding SKIN: Pressure ulcer prevention per facility protocol Rehab: PT/OT Prophylaxis: GI: Protonix DVT: Heparin Code Status: Full Resuscitation Disposition: ICU Other: Total patient care time exceeds 35 minutes excluding all procedures. Case was discussed and seen with my supervising physician. The above plan was formulated and agreed upon. ATTESTATION BY PHYSICIAN I reviewed the documentation, medical decision making, and treatment plan as noted by the mid-level provider above. I agree with the findings and plan of care. Adam Lewis MD, [facility] Dec 17, 2024 10:50
[2024-12-17] MEDS ORDERED: VANCOMYCIN 1.5 GM/250 ML BAG 250 ML IV SCH (11:00)
--- NOTE | 2024-12-17 11:21 | HMCIMG ---
EXAM: US Duplex Bilateral Carotid and Vertebral Arteries. CLINICAL HISTORY: EVALUATE S/S STROKE TECHNIQUE: Real-time ultrasound scan of the bilateral carotid and vertebral arteries, 2-D grayscale, with color Doppler flow and spectral waveform analysis. COMPARISON: None provided. FINDINGS: RIGHT COMMON CAROTID ARTERY: PSV???77 cm/sec, no occlusion or significant stenosis. RIGHT INTERNAL CAROTID ARTERY: PSV???96 cm/sec, no occlusion or significant stenosis. RIGHT EXTERNAL CAROTID ARTERY: PSV- 64 cm/sec, no occlusion or significant stenosis. RIGHT VERTEBRAL ARTERY: Antegrade flow. PSV 62 cm/sec RIGHT ICA/CCA RATIO: 1.2 Within normal limits. LEFT COMMON CAROTID ARTERY: PSV- 85 cm/sec, no occlusion or significant stenosis. Soft tissue plaque in proximal CCA. LEFT INTERNAL CAROTID ARTERY: PSV- 55 cm/sec, no occlusion or significant stenosis. LEFT EXTERNAL CAROTID ARTERY: PSV -86 cm/sec No occlusion or significant stenosis. LEFT VERTEBRAL ARTERY: Antegrade flow. PSV 37 cm/sec LEFT ICA/CCA RATIO: 0.6 Within normal limits. SOFT TISSUES: No incidental abnormalities. IMPRESSION: 1. No hemodynamically significant stenosis in bilateral carotid or vertebral arteries. /[place]
[2024-12-17] MEDS ORDERED: COMPOUND IV MISC 1 EACH IVSOLN MISC PRN (12:00)
[2024-12-17] MEDS: SODIUM BICARB 8.4% 50ML SYRING 150 MEQ in DEXTROSE 5%-WATER 1,000 ML IVP SCH (12:20)
--- NOTE | 2024-12-17 12:33 | PN ---
NEPHROLOGY PROGRESS NOTE Date/Time Patient Seen: Dec 17, 2024 SUBJECTIVE: This is a 49-year-old male with a past medical history of diabetes mellitus type 2, hypertension, peripheral arterial disease with left AKA, coronary artery disease, hyperlipidemia, GERD, PAD, and obesity Patient presented to the emergency room for fever and scrotum swelling. Thomas in place due to urinary retention Blood and urine cultures have been collected, pending results Continues on broad-spectrum antibiotics. We have consulted for renal failure. Renal function is improving Electrolytes are stable. UA positive for proteinuria. Hemoglobin noted CT of the abdomen showed severe bilateral hydronephrosis. Marked bladder wall thickening with perivesicular fat stranding Renal ultrasound showed Urinary bladder wall thickening of concern for cystitis. Recommend urine routine. Previously demonstrated bilateral moderate hydroureteronephrosis is not visualized. 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 NEUROLOGIC: Negative for any blurry vision, blind spots, double vision, facial asymmetry, dysphagia, dysarthria, hemiparesis, hemisensory deficits, vertigo, ataxia. HEENT: Negative for any head trauma, neck trauma, neck stiffness, photophobia, phonophobia, sinusitis, rhinitis. CARDIAC: Negative for any chest pain, dyspnea on exertion, paroxysmal nocturnal dyspnea, peripheral edema. PULMONARY: Negative for any shortness of breath, wheezing, COPD, or TB exposure. GASTROINTESTINAL: Negative for any abdominal pain, nausea, vomiting, bright red blood per rectum, melena. GENITOURINARY: Negative for any dysuria, hematuria, incontinence. INTEGUMENTARY: Negative for any rashes, cuts, insect bites. RHEUMATOLOGIC: Negative for any joint pains, photosensitive rashes, history of vasculitis or kidney problems. HEMATOLOGIC: Negative for any abnormal bruising, frequent infections or bleeding. Vital Signs (last 8hr) Date Time Temp Pulse Resp B/P (MAP) Pulse Ox O2 Delivery O2 Flow Rate FiO2 12/17/24 09:17 161/79 12/17/24 09:16 65 139/87 98 12/17/24 09:16 67 137/85 99 12/17/24 09:15 65 126/82 92 12/17/24 09:13 138/79 12/17/24 09:13 141/80 12/17/24 09:12 124/71 12/17/24 09:00 96 Nasal Cannula* 2 28 12/17/24 08:00 97.2 74 21 146/80 98 Nasal Cannula 2.0 PHYSICAL EXAM: GENERAL: Alert and oriented x 3. No acute distress. Well-nourished. EYES: EOMI. Anicteric. HENT: Moist mucous membranes. No scleral icterus. No cervical lymphadenopathy. LUNGS: Clear to auscultation bilaterally. No accessory muscle use. CARDIOVASCULAR: Regular rate and rhythm. No murmur. No JVD. ABDOMEN: Soft, non-tender and non-distended. No palpable masses. EXTREMITIES: No edema. Non-tender. SKIN: No rashes or lesions. Warm. NEUROLOGIC: No focal neurological deficits. CN II-XII grossly intact, but not individually tested. PSYCHIATRIC: Cooperative. Appropriate mood and affect. Current Medications Medications (Trade) Dose Ordered Sig/Gaby Route Start Time Stop Time Status Last Admin Dose Admin Atorvastatin Calcium (LIPItor 40MG) 40 mg HS PO 12/15/24 21:00 01/14/25 20:59 12/15/24 21:05 40 MG Famotidine (Pepcid 20mg Vial) 20 mg DAILY IV 12/16/24 09:00 01/15/25 08:59 12/16/24 09:12 20 MG Ferrous Sulfate (Ferrous Sulfate) 325 mg DAILY PO 12/16/24 09:00 01/15/25 08:59 Home Med (Home Medication) (Sennosides/ Docusate Sodium (Colace 2-i... DAILY PO 12/16/24 09:00 01/15/25 08:59 Insulin Glargine (LANtus 100 UNITS/ML 10 ML VIAL) 20 units DAILY SQ 12/16/24 09:00 01/14/25 20:59 Insulin Glargine (LANtus 100 UNITS/ML 10 ML VIAL) 20 units HS SQ 12/15/24 21:00 12/16/24 06:19 DC 12/15/24 21:05 20 UNITS Insulin Glargine (LANtus 100 UNITS/ML 10 ML VIAL) 25 units HS SQ 12/15/24 21:00 12/15/24 18:52 DC Insulin Human Regular (humuLIN R 100 UNIT/ML 3ML) 8 unit TIDAC SQ 12/16/24 07:30 01/15/25 07:29 Insulin Human Regular (humuLIN R 100 UNIT/ML 3ML) INSULIN SLIDING SCAL... ACHS SQ 12/15/24 16:30 12/16/24 06:19 DC 12/15/24 21:03 5 UNIT Insulin Human Regular (humuLIN R 100 UNIT/ML 3ML) INSULIN SLIDING SCAL... ACHS SQ 12/16/24 07:30 01/15/25 07:29 Linezolid 300 ml @ 150 mls/hr Q12H IV 12/15/24 21:00 12/17/24 20:59 12/16/24 09:12 150 MLS/HR Meropenem (Merrem 1gm) 1 gm Q12H IVPB 12/15/24 16:00 12/17/24 23:00 12/16/24 06:02 1 GM Pharmacy Profile Note (Pharmacy Communication) 1 each ONCE MISC 12/15/24 13:30 12/15/24 14:18 DC Sodium Chloride 1,000 ml @ 75 mls/hr [id number] IV 12/15/24 13:30 01/14/25 13:29 12/16/24 02:42 75 MLS/HR Tamsulosin HCl (FloMAX) 0.4 mg DAILY PO 12/16/24 09:00 01/15/25 08:59 Vancomycin HCl 250 ml @ 125 mls/hr Q48H IV 12/17/24 11:00 12/15/24 13:19 DC Vancomycin HCl (Vancomycin Protocol) 1 each AD IV 12/15/24 11:00 12/15/24 23:52 DC Vitamin B Complex/ Vit C/Folic Acid (Nephrovite Tablet) 1 cap DAILY PO 12/16/24 09:00 01/15/25 08:59 LABORATORY: [ ] Hematology Labs: Test 12/17/24 05:13 12/16/24 05:17 12/15/24 13:42 Range/Units White Blood Count 12.4 H 4.8-10.8 K/uL Red Blood Count 4.42 L 4.50-6.20 MIL/uL Hemoglobin 11.0 L 14.0-18.0 g/dL Hematocrit 34.7 L 42-54 % Mean Corpuscular Volume 78.5 L 79-99 fL Mean Corpuscular Hemoglobin 24.9 L 27.0-33.0 pg Mean Corpuscular Hemoglobin Concent 31.7 L 32.0-36.0 g/dL Red Cell Distribution Width 13.6 11.0-15.5 % Platelet Count 497 H 130-400 K/uL Mean Platelet Volume 10.0 7.5-10.5 fL Nucleated Red Blood Cells 0.0 0.0-0.19 % Immature Granulocyte % (Auto) 0.5 0-1 % Neutrophils (%) (Auto) 78.8 H 40.0-77.0 % Lymphocytes (%) (Auto) 12.9 L 21.0-51.0 % Monocytes (%) (Auto) 7.2 3.0-13.0 % Eosinophils (%) (Auto) 0.5 0.0-8.0 % Basophils (%) (Auto) 0.1 0.0-5.0 % Neutrophils # (Auto) 11.6 H 1.8-7.7 K/uL Lymphocytes # (Auto) 1.9 1.0-4.8 K/uL Monocytes # (Auto) 1.1 H 0.1-1.0 K/uL Eosinophils # (Auto) 0.07 0.00-0.70 K/uL Basophils # (Auto) 0.02 0.00-0.20 K/uL Absolute Immature Granulocyte (auto 0.08 0-1 K/uL Erythrocyte Sedimentation Rate 133 H 0-15 MM/HR Chemistry Labs: Test 12/17/24 11:49 12/17/24 09:22 12/17/24 05:13 12/17/24 05:01 Range/Units Whole Blood Glucose 323 H 70-110 MG/DL Ammonia < 10 L 11-32 umol/L Sodium Level 132 L 136-145 mmol/L Potassium Level 5.1 3.5-5.1 mmol/L Chloride Level 102 101-111 mmol/L Carbon Dioxide Level 20 L 21-32 mmol/L Blood Urea Nitrogen 67 H 7-18 mg/dL Creatinine 2.3 H 0.5-1.3 mg/dL Glomerular Filtration Rate Calc 34 >90 mL/min Random Glucose 430 #*H 70-105 mg/dL Total Calcium 8.8 8.5-10.1 mg/dL Phosphorus Level 5.0 H 2.5-4.9 mg/dL Magnesium Level 2.00 1.80-2.40 mg/dL Total Bilirubin 0.2 # 0.2-1.0 mg/dL Aspartate Amino Transf (AST/SGOT) 19 10-37 U/L Alanine Aminotransferase (ALT/SGPT) 15 # 12-78 U/L Alkaline Phosphatase 229 H 50-136 U/L Total Protein 7.5 6.0-8.3 g/dL Albumin 1.5 L 3.5-5.0 g/dL Bedside Glucose Comment Notified Nurse Test 12/16/24 05:17 12/15/24 13:42 Range/Units Serum Osmolality 309 H 278-305 mOsm/kg Uric Acid 10.6 H 2.6-7.2 mg/dL Iron Level 15 #L 65-175 mcg/dL Total Iron Binding Capacity 144 L 250-450 mcg/dL Percent Iron Saturation 10.4 L 30-44 % Ferritin 598 H 30-400 ng/mL Thyroid Stimulating Hormone (TSH) 1.47 0.36-3.74 uIU/mL Hemoglobin A1c 14.0 H 4.0-6.0 % Estimated Average Glucose (eAG) 355 H 70-126 mg/dL Whole Blood Ketones Quantitative 0.3 0.0-0.6 mmol/L Direct Bilirubin 0.1 0.0-0.3 mg/dL Lactate Dehydrogenase 139 81-234 U/L C-Reactive Protein, Quantitative 257.00 H 0.5-3.0 mg/L Procalcitonin 0.82 H 0.05-0.5 ng/mL DIAGNOSTICS / RADIOLOGY: [place] [address] [address] IMAGING REPORT Signed PATIENT: ASHA SUERO MR#: [id number] : 1975 SEX: M AGE: 49 LOCATION: [facility] ORDER 0922 STATUS: ADM IN HEALTH - [facility] REPORT#: [id number] SERVICE 0917 REASON: EVALUATE S/S STROKE ORDERING PHYSICIAN: ZARI JORDAN APRN PROCEDURE: CAROTID - US CAROTID DUPLEX EXAM: US Duplex Bilateral Carotid and Vertebral Arteries. CLINICAL HISTORY: EVALUATE S/S STROKE TECHNIQUE: Real-time ultrasound scan of the bilateral carotid and vertebral arteries, 2-D grayscale, with color Doppler flow and spectral waveform analysis. COMPARISON: None provided. FINDINGS: RIGHT COMMON CAROTID ARTERY: PSV???77 cm/sec, no occlusion or significant stenosis. RIGHT INTERNAL CAROTID ARTERY: PSV???96 cm/sec, no occlusion or significant stenosis. RIGHT EXTERNAL CAROTID ARTERY: PSV- 64 cm/sec, no occlusion or significant stenosis. RIGHT VERTEBRAL ARTERY: Antegrade flow. PSV 62 cm/sec RIGHT ICA/CCA RATIO: 1.2 Within normal limits. LEFT COMMON CAROTID ARTERY: PSV- 85 cm/sec, no occlusion or significant stenosis. Soft tissue plaque in proximal CCA. LEFT INTERNAL CAROTID ARTERY: PSV- 55 cm/sec, no occlusion or significant stenosis. LEFT EXTERNAL CAROTID ARTERY: PSV -86 cm/sec No occlusion or significant stenosis. LEFT VERTEBRAL ARTERY: Antegrade flow. PSV 37 cm/sec LEFT ICA/CCA RATIO: 0.6 Within normal limits. SOFT TISSUES: No incidental abnormalities. IMPRESSION: 1. No hemodynamically significant stenosis in bilateral carotid or vertebral arteries. /[facility] DICTATED BY: ALICE LEARY Jr., MD DATE: 12/17/241219 ELECTRONICALLY SIGNED BY: ALICE LEARY Jr., MD DATE: 12/17/241219 PATIENT: ASHA SUERO MR#: [id number] : 1975 SEX: M AGE: 49 LOCATION: [facility] ORDER 8 STATUS: ADM IN REPORT#: [id number] SERVICE 0908 REASON: S ORDERING PHYSICIAN: JANET IVAN MD PROCEDURE: HEAD WO - CT HEAD/BRAIN W/O CONTRAST ADDENDUM REPORT ADDENDUM: Results were shared by telephone at 11:10 am on 12/17/24 and acknowledged by Isaias Robb /[facility] EXAM: Non-contrast CT examination of the Brain CLINICAL HISTORY: Rule out stroke. Altered mental status. TECHNIQUE: Thin collimated axial CT images of the brain were obtained, with sagittal and coronal reformatted images also submitted. CT scan done according to ALARA (As Low as Reasonably Achievable). CONTRAST USED: None. COMPARISON: Prior CT brain dated 02/02/23. FINDINGS: No acute intracranial abnormality is present. No acute cortical infarction, hemorrhage, mass, or mass effect. Mild generalized cerebral atrophy. No hydrocephalus or abnormal extra-axial fluid collections. Stable encephalomalacia in the bilateral inferior cerebellar hemispheres. The skull base and calvarium are intact. The mastoid air cells are clear. Mucosal disease in the visualized right maxillary sinus. IMPRESSION: No acute intracranial abnormality is present. Stable encephalomalacia in the bilateral inferior cerebellar hemispheres suggesting sequelae of prior insult. No significant interval change. /[facility] DICTATED BY: ALICE LEARY Jr., MD DATE: 12/17/24 1112 ELECTRONICALLY SIGNED BY: DATE: EXAM: Non-contrast CT examination of the Brain CLINICAL HISTORY: Rule out stroke. Altered mental status. TECHNIQUE: Thin collimated axial CT images of the brain were obtained, with sagittal and coronal reformatted images also submitted. CT scan done according to ALARA (As Low as Reasonably Achievable). CONTRAST USED: None. COMPARISON: Prior CT brain dated 02/02/23. FINDINGS: No acute intracranial abnormality is present. No acute cortical infarction, hemorrhage, mass, or mass effect. Mild generalized cerebral atrophy. No hydrocephalus or abnormal extra-axial fluid collections. Stable encephalomalacia in the bilateral inferior cerebellar hemispheres. The skull base and calvarium are intact. The mastoid air cells are clear. Mucosal disease in the visualized right maxillary sinus. IMPRESSION: No acute intracranial abnormality is present. Stable encephalomalacia in the bilateral inferior cerebellar hemispheres suggesting sequelae of prior insult. No significant interval change. /[facility] DICTATED BY: ALICE LEARY Jr., MD DATE: 12/17/24 105 ELECTRONICALLY SIGNED BY: ALICE LEARY Jr., MD DATE: 12/17/241053 PATIENT: ASHA SUERO MR#: [id number] : 1975 SEX: M AGE: 49 LOCATION: [facility] ORDER 1329 STATUS: ADM IN REPORT#: [id number] SERVICE 132 REASON: renal failure ORDERING PHYSICIAN: JANET IVAN MD PROCEDURE: RENAL - US RENAL SONOGRAM EXAMINATION: ULTRASOUND OF THE RETROPERITONEUM. CLINICAL HISTORY: Renal failure. COMPARISON: CT abdomen and pelvis without contrast dated 12/15/2024. TECHNIQUE: Real-time grayscale ultrasound images of the kidneys. FINDINGS: The kidneys are normal in caliber, the right kidney measures 11.9 x 5.0 x 7.8 cm and the left kidney measures 13.0 x 7.6 x 3.8 cm in its craniocaudal, AP, and transverse dimensions respectively. There is normal renal cortical thickness, and cortical echogenicity. There is no renal calculus or hydronephrosis. The urinary bladder is empty with Thomas???s bulb. There is wall thickening (0.6 cm). IMPRESSION: Urinary bladder wall thickening of concern for cystitis. Recommend urine routine. Previously demonstrated bilateral moderate hydroureteronephrosis is not visualized. /[facility] DICTATED BY: ALICE LERAY Jr., MD DATE: 12/17/24943 ELECTRONICALLY SIGNED BY: ALICE LEARY Jr., MD DATE: 12/17/24943 PATIENT: ASHA SUERO MR#: [id number] : 1975 SEX: M AGE: 49 LOCATION: [facility] ORDER 1041 STATUS: ADM IN REPORT#: [id number] SERVICE 1040 REASON: urinary retention, testicular swelling wo per provider ORDERING PHYSICIAN: NYLA MORALES PROCEDURE: ABD PEL WO - CT ABDOMEN/PELVIS W/O CONTRAST EXAM: CT Abdomen and Pelvis Without IV contrast CLINICAL HISTORY: urinary retention, testicular swelling wo per provider TECHNIQUE: Axial computed tomography images of the abdomen and pelvis without intravenous contrast. CONTRAST: No IV contrast. COMPARISON: [facility] dated 02/08/23 FINDINGS: LUNG BASES: There are atelectatic bands within the bilateral lower lobes. LIVER: Unremarkable. GALLBLADDER AND BILE DUCTS: Post cholecystectomy status with surgical clips in situ. PANCREAS: Unremarkable. SPLEEN: Unremarkable. ADRENAL GLANDS: Unremarkable. KIDNEYS, URETERS, AND BLADDER: There is marked concentric bladder wall thickening, more pronounced posteriorly, with perivesicular fat stranding likely reflecting cystitis. There is reflux within the bilateral ureters resulting in severe bilateral hydronephrosis and also bilateral perinephric fat stranding reflecting pyelonephritis. There is no radiopaque calculus appreciated. STOMACH AND BOWEL: Unremarkable appearance of the stomach and bowel. No evidence of bowel obstruction. No evidence suggesting enteritis or colitis. APPENDIX: No evidence of acute appendicitis on CT examination. PERITONEUM: Small 7 mm fat-containing umbilical hernia. LYMPH NODES: No lymphadenopathy is evident. REPRODUCTIVE: A well-defined hypodense collection along the right penoscrotal region, measuring 6 x 5.1 cm, concerning for abscess. VASCULATURE: Atherosclerotic changes of the abdominal aorta. BONES: No aggressive appearing osseous lesion. No acute osseous pathology evident. IMPRESSION: 1. Severe bilateral hydronephrosis with pyelonephritis and perinephric fat stranding. 2. Marked bladder wall thickening with perivesicular fat stranding, compatible with cystitis. 3. 6 x 5.1 cm right penoscrotal hypodense collection, concerning for abscess. /[facility] DICTATED BY: ALICE LEARY Jr., MD DATE: 12/15/241458 ELECTRONICALLY SIGNED BY: ALICE LEARY Jr., MD DATE: 12/15/241458 PATIENT: ASHA SUERO MR#: [id number] : 1975 SEX: M AGE: 49 LOCATION: [facility] ORDER 1036 STATUS: REG ER REPORT#: [id number] SERVICE 1032 REASON: SEPSIS ORDERING PHYSICIAN: NYLA MORALES PROCEDURE: CXR1VW - CHEST 1VW EXAM: CR Chest, 1 View. CLINICAL HISTORY: SEPSIS COMPARISON: None provided. FINDINGS: LUNGS: There is no mass, infiltrate, or acute pulmonary abnormality. Mild bibasilar atelectasis. PLEURAL SPACES: No pleural effusion or pneumothorax. MEDIASTINUM: The cardiomediastinal silhouette is within normal limits. BONES: No acute osseous abnormality. IMPRESSION: No acute cardiopulmonary pathology is evident. /[facility] DICTATED BY: ALICE LEARY Jr., MD DATE: 12/15/241348 ELECTRONICALLY SIGNED BY: ALICE LEARY Jr., MD DATE: 12/15/24 134 PATIENT: ASHA SUERO MR#: [id number] : 1975 SEX: M AGE: 49 LOCATION: [facility] ORDER 1015 STATUS: REG ER REPORT#: [id number] SERVICE 1013 REASON: TESTICULAR PAIN/SWELLING ORDERING PHYSICIAN: NYLA MORALES PROCEDURE: SCROTUM - US SCROTUM & CONTENTS ADDENDUM REPORT ADDENDUM: Results were shared by telephone at 13:33 pm on 12-15-24 and acknowledged by Nyla Ordonez /[facility] EXAM: US Scrotum. CLINICAL HISTORY: TESTICULAR PAIN/SWELLING TECHNIQUE: Real-time ultrasound of the scrotum with color Doppler and image documentation. COMPARISON: Study dated 07/29. FINDINGS: RIGHT TESTICLE: Normal in size (3.3 cm x 1.5 cm x 2.4 cm) and echogenicity, no abnormal mass. Mildly reduced Doppler flow. LEFT TESTICLE: Normal in size (3.6 cm x 1.4 cm x 2.1 cm) and echogenicity, no abnormal mass. Normal Doppler flow. EPIDIDYMIDES: Within normal limits in size and vascularity. A 3 x 3 x 3 mm cyst along the head of the right epididymis. SCROTUM: There is significant improvement of previously documented abscess measuring 2.5 x 2.2 cm along the right scrotal wall (6 mm). No hydrocele, varicocele seen. IMPRESSION: 1. Scrotal wall abscess along the right side, measuring 2.5 x 2.2 cm, showing significant improvement/reduction in size. 2. Mildly reduced blood flow to the right testicle. Clinical correlation is advised for possible intermittent right testicular torsion. /[facility] DICTATED BY: ALICE LEARY Jr., MD DATE: 12/15/24 1337 ELECTRONICALLY SIGNED BY: DATE: EXAM: US Scrotum. CLINICAL HISTORY: TESTICULAR PAIN/SWELLING TECHNIQUE: Real-time ultrasound of the scrotum with color Doppler and image documentation. COMPARISON: Study dated 07/29. FINDINGS: RIGHT TESTICLE: Normal in size (3.3 cm x 1.5 cm x 2.4 cm) and echogenicity, no abnormal mass. Mildly reduced Doppler flow. LEFT TESTICLE: Normal in size (3.6 cm x 1.4 cm x 2.1 cm) and echogenicity, no abnormal mass. Normal Doppler flow. EPIDIDYMIDES: Within normal limits in size and vascularity. A 3 x 3 x 3 mm cyst along the head of the right epididymis. SCROTUM: There is significant improvement of previously documented abscess measuring 2.5 x 2.2 cm along the right scrotal wall (6 mm). No hydrocele, varicocele seen. IMPRESSION: 1. Scrotal wall abscess along the right side, measuring 2.5 x 2.2 cm, showing significant improvement/reduction in size. 2. Mildly reduced blood flow to the right testicle. Clinical correlation is advised for possible intermittent right testicular torsion. /[facility] DICTATED BY: ALICE LEARY Jr., MD DATE: 12/15/24 1324 ELECTRONICALLY SIGNED BY: ALIEC LEARY Jr., MD DATE: 12/15/24 1324 ASSESSMENT: Acute on chronic renal failure Nephrotic syndrome Anemia Severe bilateral hydronephrosis with pyelonephritis Sepsis Progressive scrotal cellulitis with developing right hemiscrotum abscess Severe complicated urinary tract infection Urinary retention S/p Thomas catheter Electrolyte derangement Coronary artery disease Uncontrolled Diabetes mellitus type 2 Hyperlipidemia Hypertension PAD S/p left AKA Severe protein calorie malnutrition Obesity Debility Right eye blindness Decreased vision of left eye PLAN: Labs, diagnostic, radiologic exams reviewed and interpreted by myself and supervising physician. We have reviewed external records in detail Follow up on MRI of the brain. Continue with the antibiotics as per ID Pending further Neurology recommendations Require close monitoring of renal function and electrolytes Order CBC, CMP, and electrolytes in am BiPAP as necessary, for respiratory distress Monitor blood pressure adjust medication doses as needed Avoid hypotensive episodes May use Dilaudid 0.5 mg IV every 6 hours as needed for severe pain Monitor blood sugars Strict intake, output, and daily weight should be monitored Please renally adjust medications Avoid nephrotoxic and nonsteroidal drugs Avoid contrast if possible Will continue to monitor renal function, anemia, electrolytes Treatment plan discussed with patient Questions were answered We have discussed with the other team physicians in detail about the care plan We will continue to monitor the patient closely Total critical care time spent with patient, nursing staff, critical care team over 35 minutes ATTESTATION BY PHYSICIAN I have seen and examined the patient. I reviewed the documentation, medical decision making, and treatment plan as noted by the mid-level provider above. I agree with the findings and plan of care. KRUPA MANDEL MD, [facility] Dec 17, 2024 12:33
--- NOTE | 2024-12-17 12:46 | PN ---
[facility] PROGRESS NOTE Date of Service: Dec 17, 2024 Time of Service: 12:39 SUBJECTIVE: 49-year-old male with history of poorly controlled type 2 diabetes mellitus, hypertension, hyperlipidemia, GERD, peripheral arterial disease, history of coronary artery disease with prior history of coronary stenting, peripheral arterial disease with prior history of angioplasty and stenting, morbid obesity, history of scrotal cellulitis with abscess requiring [place] [facility] [place]. Patient presented to the ER for further evaluation of progressive pain, swelling to the right side of the scrotum ongoing for the past three days. Pain is moderate in intensity involving the right hemiscrotum. Patient reported having subjective fevers, chills as well feels. Reported having dysuria and suprapubic discomfort as well. Patient reported that he was previously hospitalized in [facility] [place] where he was found to have right epididymo-orchitis. Patient during his hospitalization needed incision and drainage with debridement of right perineal and Ischiorectal abscess tracking into the scrotum by Dr. Choudhury on 08/01/2024. During this hospita lization had urinary retention requiring Thomas catheter placement. Discharged to long-term acute care for further IV antibiotic therapy. Patient denies any active chest pain, nausea, vomiting, or significant abdominal pain. On presentation to the ER, patient was noted to be in urinary retention with Thomas catheter placement yielding about 400 mL of urine. Patient underwent testicular ultrasound which showed findings of right scrotal wall abscess and mildly reduced flow to the right testicle. Patient underwent CT abdomen pelvis without contrast which showed findings of severe bilateral hydronephrosis with pyelonephritis, cystitis, and 3.6 cm x 5.1 cm right penoscrotal hypodense collection concerning for abscess. Patient admitted for further treatment and management of sepsis with underlying UTI, scrotal wall cellulitis with abscess, acute kidney injury and severe hyperglycemia. Consultation with Urology requested. Patient started on broad-spectrum antibiotics. 12/16 patient remains admitted to the PCU, blood pressure 135/86, afebrile, saturating normal on room air, WBC 14.8, hemoglobin 10.3, hematocrit 32.5, platelet count of 424. Sodium 131, potassium 4.4, CO2 of 19, BUN of 79, creatinine 3.3, uric acid 10.6, phosphorus 5.0. Iron level at 15. Blood gas with an ABG showing a pH of 7.32, pCO2 38, bicarb 19.3. Blood cultures no growth after 24 hours. Urine culture [id number] CFU, identification and sensitivity in progress. Patient evaluated by urologist, they abscesses and spontaneously draining, but the patient is still going to need formal incision and drainage. Clinical exam did not reveal findings suggestive of torsion. There was scrotal wall thickening worse of the right side with cellulitis. Recommended IV antibiotics for now. I will request a stat ABG to assess metabolic status. Patient with low iron level, follow stool occult blood, if positive we will request GI consultation. Patient currently on ferrous sulfate 325 mg p.o. daily. Infectious Disease consultation requested, follow input and recommendation. Patient with creatinine of 3.3, nephrology input noted and appreciated. Patient is started on insulin glargine 20 units subcutaneously daily as well as insulin sliding scale, continue to follow endocrinology input and recommendation. Renal ultrasound will be ordered, discussed with the track laminating machine tender, if hydronephrosis we will request Urology consult. Follow up PSA level. During my visit patient comfortably in bed, alert oriented x3, no acute events overnight, results of renal function discussed with the patient and the at bedside. 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 Blood pressure 161/79, heart rate of 67, saturating 99% 2 L nasal cannula. CBC with a hemoglobin 11.0, hematocrit 34.7, WBC 12.4, platelet count 497. Sodium 132, potassium 5.1, BUN of 67, creatinine 2.3, (improving compared to yesterday) random glucose 430, total calcium 8.8, magnesium 2.0. Ammonia level less than 10. ABG showing a pH of 7.32, bicarb of 18.4. Renal ultrasound showed urinary bladder wall thickening consult for cystitis, previously bilateral moderate hydroureteronephrosis not visualized. CT head without contrast no acute intracranial abnormality, stable encephalomalacia in the bilateral inferior cerebellar hemispheres suggesting sequela of prior insult, no significant interval change. Ultrasound carotids no hemodynamically significant stenosis bilateral carotid or vertebral arteries. Continue the patient on broad-spectrum IV antibiotics, follow results of intraoperative cultures, continue to follow ID input recommendation, follow urology input and recommendation. Neurology consultation requested, we will follow input and recommendation. Patient upgraded to the ICU, continue close monitoring of the patient's mental status. Follow critical care input and recommendations. Renal function slowly improving, continue to monitor in a.m., continue to assess metabolic status with daily ABG, patient is started on sodium bicarbonate drip. Continue long-acting insulin with glargine 50 units subcutaneously daily as well as insulin sliding scale. A.m. labs At the time of my visit, patient is comfortably in bed, alert and oriented x3, results of CT head discussed with the patient, all questions answered, he denies dizziness, no headache, no chest pain, shortness shortness for breath, no nausea, no vomiting. No weakness to both upper or lower extremities, able to move four extremities well. Able to show me all his teeth without deviation of the mouth. not present in the room at the time of my visit. REVIEW OF SYSTEMS CONSTITUTIONAL: fevers, chills and malaise NEUROLOGICAL: Denies headache, amaurosis fugax, motor weakness, sensory deficit, vertigo/spinning sensation, gait abnormalities, or tremors. ENT: No hearing loss, otalgia, otorrhea, rhinitis, rhinorrhea, hoarseness, or sore throat. CARDIOVASCULAR: Denies any exertional angina, dyspnea on exertion, orthopnea, paroxysmal nocturnal dyspnea, palpitations, life-threatening arrhythmias, claudication. PULMONARY: Denies any shortness of breath, cough, phlegm/sputum, hemoptysis, pleuritic chest pain. SLEEP: Denies morning headaches, daytime somnolence or napping. Denies difficulty falling asleep, staying asleep, waking from sleep. Denies knowledge of snoring. GASTROINTESTINAL: Denies any type of dysphagia to either liquids or solids. Denies nausea, vomiting, pyrosis, early satiety, abdominal pain, diarrhea, constipation, or changes in stool consistency or caliber. Denies coffee-ground emesis, hematemesis, hematochezia, or melanotic stools. GENITOURINARY: redness, swelling and pain to the right side of the scrotum ENDOCRINOLOGIC: poorly controlled DM II with hyperglycemia HEMATOLOGIC: Denies thrombophilia/previous clots, or coagulopathy/bleeding disorders. ONCOLOGIC: Denies personal history of malignancy. DERMATOLOGIC: redness and swelling to the right richie-scrotum PSYCHIATRIC: Denies any suicidal or homicidal ideation. Denies hallucinations. PHYSICAL EXAM GENERAL APPEARANCE: The patient is awake, alert, and oriented, in no acute cardiopulmonary distress. NEUROLOGICAL: Cranial nerves II-XII grossly intact. Motor is 5/5 in bilateral upper and lower extremities proximal to distal. No sensory deficits. HEENT: Face is symmetric. Pupils are equal and reactive. Extraocular movements are intact. NECK: Supple. No JVD. No thyromegaly. No submental, submandibular, pre- /postauricular, occipital or supraclavicular lymphadenopathy. CHEST: Normal chest expansion. No Telemetry. LUNGS: Absence of any rales, rhonchi or any wheezing. CARDIOVASCULAR: Regular. S1 and S2 normal. No appreciable rubs, murmurs or gallops. ABDOMEN: Soft, nontender, and nondistended. There is no rebound, voluntary guarding, or rigidity. : Thomas catheter noted draining cloudy urine, significant redness and swelling noted of the scrotum, mild tenderness to palpation EXTREMITIES: No significant swelling noted Vital Signs (last 8hr) Date Time Temp Pulse Resp B/P (MAP) Pulse Ox O2 Delivery O2 Flow Rate FiO2 12/17/24 09:17 161/79 12/17/24 09:16 65 139/87 98 12/17/24 09:16 67 137/85 99 12/17/24 09:15 65 126/82 92 12/17/24 09:13 138/79 12/17/24 09:13 141/80 12/17/24 09:12 124/71 12/17/24 09:00 96 Nasal Cannula* 2 28 12/17/24 08:00 97.2 74 21 146/80 98 Nasal Cannula 2.0 LABS: Laboratory: Test 12/17/24 11:49 12/17/24 09:22 12/17/24 09:10 12/17/24 05:13 Range/Units Whole Blood Glucose 323 H 70-110 MG/DL Ammonia < 10 L 11-32 umol/L Blood Gas Specimen Type Arterial Arterial Blood pH 7.322 L 7.350-7.450 Arterial Blood Partial Pressure CO2 36 35-48 mmHg Arterial Blood Partial Pressure O2 99.8 83.0-108.0 mmHg Arterial Blood HCO3 18.4 L 21.0-28.0 mmol/L Arterial Blood Oxygen Saturation 97.1 94.0-98.0 % Arterial Blood Base Excess -6.9 L -2.0-3.0 mmol/L Hemoglobin (Blood Gas) 11.9 L 13.5-17.5 g/dL Sodium (Blood Gas) 131 L 136-145 MMOL/L Bedside Potassium (Blood Gas) 4.9 H 3.4-4.5 MMOL/L Bedside Chloride (Blood Gas) 107 98-107 MMOL/L Bedside Glucose (Blood Gas) 367 H 65-95 MG/DL Bedside Ionized Calcium (Blood Gas) 1.21 1.15-1.33 MMOL/L Bedside Lactic Acid (Blood Gas) 0.92 H 0.36-0.75 MMOL/L Blood Gas Temperature 37.0 35.5-37.0 CELSIUS Blood Gas Flow-by 2.00 0.00-15.00 L/min Blood Gas Vent Mode 2LNC ROOM AIR FiO2 28.0 % Blood Gas Specimen Comment RR PHIL White Blood Count 12.4 H 4.8-10.8 K/uL Red Blood Count 4.42 L 4.50-6.20 MIL/uL Hemoglobin 11.0 L 14.0-18.0 g/dL Hematocrit 34.7 L 42-54 % Mean Corpuscular Volume 78.5 L 79-99 fL Mean Corpuscular Hemoglobin 24.9 L 27.0-33.0 pg Mean Corpuscular Hemoglobin Concent 31.7 L 32.0-36.0 g/dL Red Cell Distribution Width 13.6 11.0-15.5 % Platelet Count 497 H 130-400 K/uL Mean Platelet Volume 10.0 7.5-10.5 fL Nucleated Red Blood Cells 0.0 0.0-0.19 % Sodium Level 132 L 136-145 mmol/L Potassium Level 5.1 3.5-5.1 mmol/L Chloride Level 102 101-111 mmol/L Carbon Dioxide Level 20 L 21-32 mmol/L Blood Urea Nitrogen 67 H 7-18 mg/dL Creatinine 2.3 H 0.5-1.3 mg/dL Glomerular Filtration Rate Calc 34 >90 mL/min Random Glucose 430 #*H 70-105 mg/dL Total Calcium 8.8 8.5-10.1 mg/dL Phosphorus Level 5.0 H 2.5-4.9 mg/dL Magnesium Level 2.00 1.80-2.40 mg/dL Total Bilirubin 0.2 # 0.2-1.0 mg/dL Aspartate Amino Transf (AST/SGOT) 19 10-37 U/L Alanine Aminotransferase (ALT/SGPT) 15 # 12-78 U/L Alkaline Phosphatase 229 H 50-136 U/L Total Protein 7.5 6.0-8.3 g/dL Albumin 1.5 L 3.5-5.0 g/dL Test 12/17/24 05:01 12/16/24 05:17 12/15/24 21:46 12/15/24 14:40 Range/Units Bedside Glucose Comment Notified Nurse Immature Granulocyte % (Auto) 0.5 0-1 % Neutrophils (%) (Auto) 78.8 H 40.0-77.0 % Lymphocytes (%) (Auto) 12.9 L 21.0-51.0 % Monocytes (%) (Auto) 7.2 3.0-13.0 % Eosinophils (%) (Auto) 0.5 0.0-8.0 % Basophils (%) (Auto) 0.1 0.0-5.0 % Neutrophils # (Auto) 11.6 H 1.8-7.7 K/uL Lymphocytes # (Auto) 1.9 1.0-4.8 K/uL Monocytes # (Auto) 1.1 H 0.1-1.0 K/uL Eosinophils # (Auto) 0.07 0.00-0.70 K/uL Basophils # (Auto) 0.02 0.00-0.20 K/uL Absolute Immature Granulocyte (auto 0.08 0-1 K/uL Serum Osmolality 309 H 278-305 mOsm/kg Uric Acid 10.6 H 2.6-7.2 mg/dL Iron Level 15 #L 65-175 mcg/dL Total Iron Binding Capacity 144 L 250-450 mcg/dL Percent Iron Saturation 10.4 L 30-44 % Ferritin 598 H 30-400 ng/mL Thyroid Stimulating Hormone (TSH) 1.47 0.36-3.74 uIU/mL Urine Color LIGHT-ORANGE YELLOW Urine Appearance TURBID CLEAR Urine pH 6.5 5.0-8.0 Urine Specific [place] 1.018 1.001-1.031 Urine Protein 300 H NEGATIVE mg/dL Urine Glucose (UA) 500 H NEGATIVE mg/dL Urine Ketones NEGATIVE NEGATIVE mg/dL Urine Occult Blood LARGE H NEGATIVE Urine Nitrate NEGATIVE NEGATIVE Urine Bilirubin NEGATIVE NEGATIVE mg/dL Urine Urobilinogen 0.2 0.2-1.0 mg/dL Urine Leukocyte Esterase 500 H NEGATIVE [place]/uL Urine RBC TNTC H 0-1 /HPF Urine WBC TNTC H 0-1 /HPF Urine WBC Clumps (Auto) MANY 0-1 /HPF Urine Bacteria RARE None Seen /HPF Urine Yeast MOD None Seen /HPF Urine Osmolality 345 50-1200 mOsm/kg Urine Random Creatinine 60.16 30-135 mg/dL Urine Random Sodium 81 40-220 mmol/l Urine Random Potassium 11 L 25-125 mmol/L Urine Random Chloride 72 L 110-250 mmol/L Venous Blood pH 7.325 7.320-7.430 Venous Blood pCO2 at Patient Temp 38 38-54 Venous Blood pO2 at Patient Temp 28.4 23.0-48.0 mmHg Venous Blood HCO3 19.3 L 22.0-29.0 Venous Blood Base Excess -6.2 L -2.0-3.0 Venous Blood Total Hemoglobin 11.3 L 13.5-17.5 Test 12/15/24 13:42 Range/Units Erythrocyte Sedimentation Rate 133 H 0-15 MM/HR Hemoglobin A1c 14.0 H 4.0-6.0 % Estimated Average Glucose (eAG) 355 H 70-126 mg/dL Whole Blood Ketones Quantitative 0.3 0.0-0.6 mmol/L Direct Bilirubin 0.1 0.0-0.3 mg/dL Lactate Dehydrogenase 139 81-234 U/L C-Reactive Protein, Quantitative 257.00 H 0.5-3.0 mg/L Procalcitonin 0.82 H 0.05-0.5 ng/mL Current Medications Medications (Trade) Dose Ordered Sig/Gaby Route PRN Reason Start Time Stop Time Status Last Admin Dose Admin Aspirin (Aspirin 81mg Ec Tab) 81 mg DAILY PO 12/18/24 09:00 01/17/25 08:59 Atorvastatin Calcium (LIPItor 40MG) 40 mg HS PO 12/15/24 21:00 01/14/25 20:59 12/16/24 21:33 40 MG Dextrose (D50w) 50 ml AD PRN IV HYPOGLYCEMIA PROTOCOL 12/15/24 13:30 01/14/25 13:29 Famotidine (Pepcid 20mg Vial) 20 mg DAILY IV 12/16/24 09:00 12/17/24 10:49 DC 12/17/24 08:53 20 MG Ferrous Sulfate (Ferrous Sulfate) 325 mg DAILY PO 12/16/24 09:00 01/15/25 08:59 Glucagon (Glucagon 1mg Kit) 1 mg AD PRN IM HYPOGLYCEMIA PROTOCOL 12/15/24 13:30 01/14/25 13:29 Heparin Sodium (Porcine) (HEParin 5,000 UNIT VIAL) 5,000 unit BID SQ 12/17/24 11:00 01/16/25 10:59 12/17/24 12:19 5,000 UNIT Home Med (Home Medication) (Sennosides/ Docusate Sodium (Colace 2-i... DAILY PO 12/16/24 09:00 01/15/25 08:59 Hydralazine HCl (APRESOLine 20MG INJ) 5 mg Q6H PRN IV ADMINISTER FOR SBP > 160 12/15/24 14:30 01/14/25 14:29 Hydromorphone HCl (DiLAUDid 0.5MG INJ) 0.2 mg Q6H PRN IVP SEVERE PAIN (7-10) 12/15/24 13:30 12/20/24 13:29 12/17/24 04:34 0.2 MG Insulin Glargine (LANtus 100 UNITS/ML 10 ML VIAL) 20 units DAILY SQ 12/16/24 09:00 12/17/24 07:32 DC Insulin Glargine (LANtus 100 UNITS/ML 10 ML VIAL) 20 units HS SQ 12/15/24 21:00 12/16/24 06:19 DC 12/15/24 21:05 20 UNITS Insulin Glargine (LANtus 100 UNITS/ML 10 ML VIAL) 25 units HS SQ 12/15/24 21:00 12/15/24 18:52 DC Insulin Glargine (LANtus 100 UNITS/ML 10 ML VIAL) 50 units DAILY SQ 12/17/24 09:00 01/16/25 08:59 12/17/24 09:12 50 UNITS Insulin Human Regular (humuLIN R 100 UNIT/ML 3ML) 8 unit TIDAC SQ 12/16/24 07:30 12/17/24 07:32 DC 12/17/24 06:59 8 UNIT Insulin Human Regular (humuLIN R 100 UNIT/ML 3ML) 15 unit TIDAC SQ 12/17/24 07:30 01/16/25 07:29 12/17/24 09:13 15 UNIT Insulin Human Regular (humuLIN R 100 UNIT/ML 3ML) INSULIN SLIDING SCAL... ACHS SQ 12/15/24 16:30 12/16/24 06:19 DC 12/15/24 21:03 5 UNIT Insulin Human Regular (humuLIN R 100 UNIT/ML 3ML) INSULIN SLIDING SCAL... ACHS SQ 12/16/24 07:30 01/15/25 07:29 12/17/24 12:20 12 UNIT Linezolid 300 ml @ 150 mls/hr Q12H IV 12/15/24 21:00 12/17/24 20:59 12/17/24 08:53 150 MLS/HR Meropenem (Merrem 1gm) 1 gm Q12H IVPB 12/15/24 16:00 12/17/24 23:00 12/17/24 05:31 1 GM Naloxone HCl (NARcan HCL 1 MG/ ML 2ML SYG) 2 mg ONCE IV 12/17/24 11:00 12/17/24 10:36 DC Pantoprazole Sodium (PROTonix 40MG INJ) 40 mg DAILY IVP 12/18/24 09:00 01/17/25 08:59 Pharmacy Profile Note (Pharmacy Communication) 1 each ONCE MISC 12/15/24 13:30 12/15/24 14:18 DC Sodium Bicarbonate 150 meq/Dextrose 1,150 ml @ 50 mls/hr Q23H IVP 12/17/24 11:00 01/16/25 10:59 12/17/24 12:20 50 MLS/HR Sodium Bicarbonate (Sodium Bicarbonate) 650 mg QID PO 12/16/24 13:00 01/15/25 12:59 12/16/24 21:33 650 MG Sodium Chloride 1,000 ml @ 75 mls/hr [id number] IV 12/15/24 13:30 12/17/24 10:49 DC 12/17/24 01:40 75 MLS/HR Tamsulosin HCl (FloMAX) 0.4 mg DAILY PO 12/16/24 09:00 01/15/25 08:59 Vancomycin HCl 250 ml @ 125 mls/hr Q48H IV 12/17/24 11:00 12/15/24 13:19 DC Vancomycin HCl (Vancomycin Protocol) 1 each AD IV 12/15/24 11:00 12/15/24 23:52 DC Vitamin B Complex/ Vit C/Folic Acid (Nephrovite Tablet) 1 cap DAILY PO 12/16/24 09:00 01/15/25 08:59 12/17/24 08:52 1 CAP DIAGNOSTICS / RADIOLOGY: [ ] ASSESSMENT: Sepsis secondary to complicated urinary tract infection and scrotal cellulitis with abscess, POA Progressive scrotal cellulitis with developing right hemiscrotal abscess, POA status post excisional debridement of necrotic soft tissue from the perineum secondary to 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) Severe complicated urinary tract infection, POA Urinary retention status post Thomas catheter placement, POA Bilateral hydronephrosis, POA Acute kidney injury with underlying history of chronic kidney disease, POA Severe nonketotic hyperglycemia with poorly controlled type 2 diabetes mellitus, POA History of Farxiga use as outpatient, POA Hypertension, POA History of dual antiplatelet therapy with aspirin and Plavix as outpatient, POA History of coronary artery disease with prior history of coronary intervention and stenting, POA History of peripheral arterial disease with history of lower extremity angioplasty and stenting, POA History of TIA, POA Hypertension, POA Hyperlipidemia, POA Debility, POA Right eye blindness, POA Decreased vision of left eye, POA History of iron deficiency anemia, POA History of hospitalization [place] [facility] [place] epididymo-orchitis with abscess requiring surgical drainage,07/2024, POA PLAN: Continue the patient on broad-spectrum IV antibiotics, follow results of intraoperative cultures, continue to follow ID input recommendation, follow urology input and recommendation. Neurology consultation requested, we will follow input and recommendation. Patient upgraded to the ICU, continue close monitoring of the patient's mental status. Follow critical care input and recommendations. Renal function slowly improving, continue to monitor in a.m., continue to assess metabolic status with daily ABG, patient is started on sodium bicarbonate drip. Continue long-acting insulin with glargine 50 units subcutaneously daily as well as insulin sliding scale. A.m. labs NEURO: Minimize central acting medications as possible. Fall Precautions. Well lighted room through the day and minimize interruptions through the night to prevent acute delirium. PULMONARY: Supplemental 02 as needed BiPAP as necessary, for respiratory distress Titrate Fio2 to keep Spo2 > or = 90% DuoNebs and CPT as needed IS hourly while awake for pulmonary hygiene prn Out of bed to chair as tolerated Maintain aspiration precautions at all times CARDIOVASCULAR: Follow hemodynamics. Vital signs per facility protocol GI & NUTRITION: Continue nutritional support Aspirations precautions Prokinetic agents and laxatives as needed KIDNEYS & ELECTROLYTES: Strict monitoring of intake and output Daily weights Avoid nephrotoxic agents Monitor electrolytes and replace as needed Goal urine output of 30mL/hr or 0.5mL/kg/hr Medications to be dosed according to renal function. Avoid contrast if possible ENDOCRINE: Maintain blood glucose between 100-180 at all times. Insulin sliding scale for blood glucose management Hypoglycemia and hyperglycemia protocol in place INFECTIOUS DISEASE: Trend temperature, WBC and procalcitonin level Follow cultures, deescalate antibiotics as soon as possible. Panculture if new onset fever HEMATOLOGY & COAGULATION: Monitor H&H. Keep Hgb > 7 Transfuse 1 unit of PRBC for Hgb < 7 Transfuse 1 pack of platelets of platelets < 20, 000 Watch for any signs and symptoms of bleeding SKIN: Pressure ulcer prevention per facility protocol Specialty mattress as needed ORTHO/REHAB Continue PT/OT PRN: MEDICATIONS Tylenol 650 mg po every 4 hrs for fever zofran 4 mg IV every 6 hrs for n/v Hydralazine 5 mg IV every 4 hrs systolic pressure > 160 bowel regiment: lactulose 20 gm PO BID PRN constipation Supportive measures: Continue GI and DVT prophylaxis Disposition: Pending improvement in clinical condition All questions answered time spent: > 35 min JANET IVAN MD Dec 17, 2024 12:46
--- NOTE | 2024-12-17 15:43 | HMCIMG ---
EXAM: MR Brain without Intravenous Contrast. CLINICAL HISTORY: RULE OUT STROKE TECHNIQUE: Multisequence, multiplanar magnetic resonance images acquired of the brain without intravenous contrast. COMPARISON: None provided. FINDINGS: BRAIN: No restricted diffusion to indicate acute infarction. Several foci of increased T2 weighted/FLAIR signal intensity within the periventricular and subcortical regions reflecting chronic microvascular ischemic white matter disease. No intracranial mass or hemorrhage. No midline shift or extra-axial fluid collection. No cerebellar tonsillar ectopia. Stable encephalomalacia within the cerebellum. No abnormal enhancement. The central arterial and venous flow voids are patent. VENTRICLES: No hydrocephalus. ORBITS: The orbits are normal. SINUSES AND MASTOIDS: Mild to moderate bilateral maxillary sinus disease. Remaining paranasal sinuses and mastoid air cells are well-pneumatized. BONES: No acute fracture or aggressive appearing osseous lesion. IMPRESSION: 1. No acute infarction, intracranial hemorrhage, or mass lesion. /[place]
--- NOTE | 2024-12-17 15:54 | NUR ---
[facility] Consult: Patient assessed by wound healing team. See wound assessment. Assessment and recommendations provided to primary nurse. Education provided. Wound care done. Addendum: 12/18/24 at 1445 by MATTEO LEARY RN RN/ Amended: Links added.
--- NOTE | 2024-12-17 15:54 | HMCIMG ---
EXAM: MRA Neck without Intravenous Contrast. CLINICAL HISTORY: R/O STROKE TECHNIQUE: Magnetic resonance angiography images of the neck without intravenous contrast. Three-dimensional MIP reformations performed. COMPARISON: Ultrasound exam from December 17, 2024. FINDINGS: INTERNAL CAROTID ARTERIES: No significant stenosis based on NASCET criteria. COMMON CAROTID ARTERIES: No significant stenosis. No dissection. EXTERNAL CAROTID ARTERIES: No occlusion or dissection. VERTEBRAL ARTERIES: No significant stenosis. No dissection. BASILAR ARTERY: No significant stenosis. No dissection. SOFT TISSUES Unremarkable as visualized. IMPRESSION: No hemodynamically significant stenosis appreciated. /[place]
--- NOTE | 2024-12-17 17:00 | NUR ---
Nursing bedside swallow evaluation performed at this time. Patient was provided small sips of water with a spoon, and then a drink of water from cup. Patient tolerated intervention well with no signs or symptoms of dysphagia. Patient is alert/oriented, speech is clear. Patient pending final evaluation from speech therapist.
--- NOTE | 2024-12-17 17:07 | HMCSR ---
APPROVED REPORT EXAM: Two-dimensional and M-mode echocardiogram with Doppler and color Doppler. INDICATION ICD: Evalute cardiac function 2D Dimensions RVDd4.0 cmLVEF(%)44.4 (>50%)LVED Vol(simp.)176.0 mL IVSd0.9 (0.7-1.1cm)FS(%)22 %LVES Vol(simp.)110.0 mL LVDd5.4 (3.8-5.6cm)LA (2D)2.1 (1.6-4.0cm)LVEF(%, simp.)37 % PWd1.0 (0.7-1.1cm)Ao Root(2D)2.6 (2.0-3.7cm)LA ESV INDEX (BP)37.59 mL/m2 LVDs4.2 (2.5-4.0cm)LVOT diam2.5 (1.8-2.4cm) IVC diam2.0 cm Deformation Strain Apical 4-9.4 % Apical 2-13.7 % Apical 3-10.7 % Global Strain-11.3 % M-Mode Dimensions EPSS1.7 cm LA (MM)2.9 (1.6-4.0cm) Ao Root(MM)2.6 (2.0-3.7cm) Aortic Valve AoV Vmax0.9 m/Chaya Peak GR3.1 mmHgLVOT Vmax0.8 m/s AoV VTI0.2 mAo Mean GR1.8 mmHgLVOT VTI0.17 m CULLEN (VMAX)4.18 cm2AVA (VTI) 4.2 cm2 Mitral Valve MV E Vmax64.6 cm/sDECEL Cacy271 ms MV A Vmax66.0 cm/sP 1/2 T87 ms E/A ratio1.0MVA (PHT)2.5 cm2 TDI E/E' Cbpkpz66.5E/E' Lateral5.6 Medial E' Peak V6.14 cm/sLateral E' Peak V11.44 cm/s Pulmonary Valve PV Vmax0.8 m/sPV VTI0.20 mPV Mean GR1.3 mmHg PV Peak GR2.4 mmHg Tricuspid Valve RAP (EST) 8 mmHgRVSP8.0 mmHg Left Ventricle Left ventricle is normal in size. The apical anterior lateral, inferolateral carrillo are severely hypok inetic. The apical inferior wall is thin, scarred and akinetic. The other carrillo are grossly normal. T here is normal left ventricular wall thickness. Left ventricle systolic function is moderately depres sed, estimated LVEF 40%. Indeterminate diastolic dysfunction. Right Ventricle The right ventricle is normal size. The right ventricular systolic function is normal. Atria The left atrium is mildly dilated, 38ml/m2. The right atrium size is normal. Aortic Valve Aortic valve is trileaflet. No aortic regurgitation is present. There is no aortic valvular stenosis. Mitral Valve The mitral valve is normal in structure. The leaflets are mildly thickened. Trace mitral regurgitatio n. There is no mitral valve stenosis. Tricuspid Valve The tricuspid valve is normal in structure. Trace tricuspid regurgitation. RVSP is normal. Pulmonic Valve Pulmonic valve is not well visualized. Great Vessels The aortic root is normal in size. The IVC is normal in size and collapses <50% with inspiration. Pericardium There is no pericardial effusion. Other Information Quality : Technically difficult study due to body habitus Conclusion Technically limited study with poor imaging windows. The left atrium is mildly dilated, 38ml/m2. There is normal left ventricular wall thickness. The apical anterior lateral, inferolateral carrillo are severely hypokinetic. The apical inferior wall is thin, scarred and akinetic. The other carrillo are grossly normal. Left ventricle systolic function is moderately depressed, estimated LVEF 40%. Indeterminate diastolic dysfunction. Trace mitral regurgitation. Trace tricuspid regurgitation. PASP is normal. There is no pericardial effusion. Recommend repeating an echocardiogram with Definity contrast to assess wall motion and LVEF.
--- NOTE | 2024-12-17 18:30 | NUR ---
BEDSIDE SWALLOW EVAL COMPLETED. No s/s of aspiration. Recommend regular solids, thin liquids and pills whole with liquids as tolerated. Compensatory strategies: 1. sit upright during oral intake 2. small bites/sips 3.slow oral intake INBOUND SALES REPRESENTATIVE reviewed results and recommendations with patient and nurse Sacha. INBOUND SALES REPRESENTATIVE educated patient on risks and consequences of aspiration. Speech therapy not warranted at this time. All questions answered. Addendum: 12/17/[address] [facility]Z ZUÑIGA Amended: Links added.
--- NOTE | 2024-12-17 18:35 | NUR ---
COGNITIVE-LINGUISTIC EVALUATION COMPLETED. WITHIN FUNCTIONAL LIMITS. EVALUATION: Pt AAOX4. SPEECH, LANGUAGE, AND COGNITIVE LINGUISTICS SKILLS ARE WITHIN FUNCTIONAL LIMITS. Pt REQUESTS WANTS AND NEEDS INDEPENDENTLY WITH CLEAR SPEECH INTELLIGIBILITY. Pt COMMUNICATING AT CONVERSATIONAL LEVEL WITH NO DEFICITS IDENTIFIED AT THIS TIME. Pt COMPLETED COGNITIVE-LINGUISTIC EVALUATION WITH CORRECT AND TIMELY ANSWERS. SPEECH THERAPY NOT WARRANTED. ALL QUESTIONS ANSWERED AT THIS TIME. FIELD MARKETING LEAD REVIEWED RESULTS AND RECOMMENDATIONS WITH PATIENT AND NURSE MORENA. Addendum: 12/17/[address] [facility]Z ZUÑIGA Amended: Links added.
--- NOTE | 2024-12-17 20:11 | PN ---
INFECTIOUS DISEASE PROGRESS NOTE Date of Service: Dec 17, 2024 SUBJECTIVE: This is a 49-year-old male patient who presented to the hospital for evaluation of pain and swelling to the right side of the scrotum. Scrotal ultrasound showed a Scrotal wall abscess along the right side, measuring 2.5 x 2.[address] scan of the abdomen and pelvis showed a 6 x 5.1 cm right penoscrotal hypodense collection, concerning for abscess and severe bilateral hydronephrosis with pyelonephritis. Urologist was consulted and patient underwent drainage and excisional debridement on 12/16/2024. Today patient is experienced slurred speech with weakness and stroke being rule out. During visit today patient was out for an MRI of the brain. present at bedside. Remains afebrile, temperature is 97.5 and the WBC has trended down to 12.4. Final urine culture results came back positive for yeast species. Patient continues on Meropenem and linezolid. We will continue to follow patient's care. PHYSICAL EXAM EYES: Anicteric. Pupils equal and reactive. HENT: No oral thrush seen, moist Oral mucosa. NECK: Supple, no JVD or thyromegaly. LUNGS: Good air entry. No rales, no rhonchi. CARDIOVASCULAR: S1, S2 regular. No murmur heard. ABDOMEN: Soft, non tender, bowel sounds present, no organomegaly. CENTRAL NERVOUS SYSTEM: Awake, alert, oriented x 3. SKIN: No rashes, no swelling. LYMPHATICS: No peripheral lymphadenopathy MUSCULOSKELETAL: No joint swelling, erythema or tenderness. EXTREMITIES: No cyanosis or clubbing BACK: No deformity, no pressure ulcer. GENITOURINARY: No dysuria or hematuria. Scrotal abscess, s/p drainage and de bridement. Vital Sign (Last 12 Hours) 12/17/24 12/17/24 12/17/24 12/17/24 08:00 09:00 09:12 09:13 Temp 97.2 Pulse 74 Resp 21 B/P (MAP) 146/80 124/71 141/80 Pulse Ox 98 96 O2 Delivery Nasal Cannula Nasal Cannula* O2 Flow Rate 2.0 2 FiO2 28 12/17/24 12/17/24 12/17/24 12/17/24 09:13 09:15 09:16 09:16 Pulse 65 67 65 B/P (MAP) 138/79 126/82 137/85 139/87 Pulse Ox 92 99 98 12/17/24 12/17/24 12/17/24 12/17/24 09:17 10:12 10:30 11:00 Temp 97.5 Pulse 70 69 68 Resp 16 12 15 B/P (MAP) 161/79 115/81 (92) 133/87 (102) 140/81 (100) Pulse Ox 99 98 96 12/17/24 12/17/24 12/17/24 12/17/24 12:00 12:00 12:00 13:00 Temp 98.1 Pulse 70 73 Resp 22 14 B/P (MAP) 162/96 (118) 153/90 (111) Pulse Ox 97 98 99 O2 Delivery Nasal Cannula* O2 Flow Rate 2 FiO2 28 12/17/24 12/17/24 12/17/24 12/17/24 14:20 15:00 16:00 16:00 Temp 97.7 97.7 Pulse 78 69 70 Resp 14 19 19 B/P (MAP) 147/83 (104) 135/70 (91) 162/64 (96) Pulse Ox 98 96 98 12/17/24 12/17/24 12/17/24 16:00 17:00 18:00 Pulse 66 68 Resp 16 17 B/P (MAP) 133/76 (95) 135/83 (100) Pulse Ox 96 93 96 O2 Delivery Room Air* O2 Flow Rate 0 FiO2 21 21 Intake & Output (last 24hrs) 12/16/24 12/16/24 12/17/24 15:00 23:00 07:00 Intake Total 1175.0 ml Output Total 300 ml 1600 ml Balance 875.0 ml -1600 ml LABS: Laboratory: Test 12/17/24 16:29 12/17/24 09:22 12/17/24 09:10 12/17/24 05:13 Range/Units Whole Blood Glucose 232 H 70-110 MG/DL Ammonia < 10 L 11-32 umol/L Blood Gas Specimen Type Arterial Arterial Blood pH 7.322 L 7.350-7.450 Arterial Blood Partial Pressure CO2 36 35-48 mmHg Arterial Blood Partial Pressure O2 99.8 83.0-108.0 mmHg Arterial Blood HCO3 18.4 L 21.0-28.0 mmol/L Arterial Blood Oxygen Saturation 97.1 94.0-98.0 % Arterial Blood Base Excess -6.9 L -2.0-3.0 mmol/L Hemoglobin (Blood Gas) 11.9 L 13.5-17.5 g/dL Sodium (Blood Gas) 131 L 136-145 MMOL/L Bedside Potassium (Blood Gas) 4.9 H 3.4-4.5 MMOL/L Bedside Chloride (Blood Gas) 107 98-107 MMOL/L Bedside Glucose (Blood Gas) 367 H 65-95 MG/DL Bedside Ionized Calcium (Blood Gas) 1.21 1.15-1.33 MMOL/L Bedside Lactic Acid (Blood Gas) 0.92 H 0.36-0.75 MMOL/L Blood Gas Temperature 37.0 35.5-37.0 CELSIUS Blood Gas Flow-by 2.00 0.00-15.00 L/min Blood Gas Vent Mode 2LNC ROOM AIR FiO2 28.0 % Blood Gas Specimen Comment RR PHIL White Blood Count 12.4 H 4.8-10.8 K/uL Red Blood Count 4.42 L 4.50-6.20 MIL/uL Hemoglobin 11.0 L 14.0-18.0 g/dL Hematocrit 34.7 L 42-54 % Mean Corpuscular Volume 78.5 L 79-99 fL Mean Corpuscular Hemoglobin 24.9 L 27.0-33.0 pg Mean Corpuscular Hemoglobin Concent 31.7 L 32.0-36.0 g/dL Red Cell Distribution Width 13.6 11.0-15.5 % Platelet Count 497 H 130-400 K/uL Mean Platelet Volume 10.0 7.5-10.5 fL Nucleated Red Blood Cells 0.0 0.0-0.19 % Sodium Level 132 L 136-145 mmol/L Potassium Level 5.1 3.5-5.1 mmol/L Chloride Level 102 101-111 mmol/L Carbon Dioxide Level 20 L 21-32 mmol/L Blood Urea Nitrogen 67 H 7-18 mg/dL Creatinine 2.3 H 0.5-1.3 mg/dL Glomerular Filtration Rate Calc 34 >90 mL/min Random Glucose 430 #*H 70-105 mg/dL Total Calcium 8.8 8.5-10.1 mg/dL Phosphorus Level 5.0 H 2.5-4.9 mg/dL Magnesium Level 2.00 1.80-2.40 mg/dL Total Bilirubin 0.2 # 0.2-1.0 mg/dL Aspartate Amino Transf (AST/SGOT) 19 10-37 U/L Alanine Aminotransferase (ALT/SGPT) 15 # 12-78 U/L Alkaline Phosphatase 229 H 50-136 U/L Total Protein 7.5 6.0-8.3 g/dL Albumin 1.5 L 3.5-5.0 g/dL Test 12/17/24 05:01 12/16/24 05:17 12/15/24 21:46 Range/Units Bedside Glucose Comment Notified Nurse Immature Granulocyte % (Auto) 0.5 0-1 % Neutrophils (%) (Auto) 78.8 H 40.0-77.0 % Lymphocytes (%) (Auto) 12.9 L 21.0-51.0 % Monocytes (%) (Auto) 7.2 3.0-13.0 % Eosinophils (%) (Auto) 0.5 0.0-8.0 % Basophils (%) (Auto) 0.1 0.0-5.0 % Neutrophils # (Auto) 11.6 H 1.8-7.7 K/uL Lymphocytes # (Auto) 1.9 1.0-4.8 K/uL Monocytes # (Auto) 1.1 H 0.1-1.0 K/uL Eosinophils # (Auto) 0.07 0.00-0.70 K/uL Basophils # (Auto) 0.02 0.00-0.20 K/uL Absolute Immature Granulocyte (auto 0.08 0-1 K/uL Serum Osmolality 309 H 278-305 mOsm/kg Uric Acid 10.6 H 2.6-7.2 mg/dL Iron Level 15 #L 65-175 mcg/dL Total Iron Binding Capacity 144 L 250-450 mcg/dL Percent Iron Saturation 10.4 L 30-44 % Ferritin 598 H 30-400 ng/mL Thyroid Stimulating Hormone (TSH) 1.47 0.36-3.74 uIU/mL Urine Color LIGHT-ORANGE YELLOW Urine Appearance TURBID CLEAR Urine pH 6.5 5.0-8.0 Urine Specific [place] 1.018 1.001-1.031 Urine Protein 300 H NEGATIVE mg/dL Urine Glucose (UA) 500 H NEGATIVE mg/dL Urine Ketones NEGATIVE NEGATIVE mg/dL Urine Occult Blood LARGE H NEGATIVE Urine Nitrate NEGATIVE NEGATIVE Urine Bilirubin NEGATIVE NEGATIVE mg/dL Urine Urobilinogen 0.2 0.2-1.0 mg/dL Urine Leukocyte Esterase 500 H NEGATIVE [place]/uL Urine RBC TNTC H 0-1 /HPF Urine WBC TNTC H 0-1 /HPF Urine WBC Clumps (Auto) MANY 0-1 /HPF Urine Bacteria RARE None Seen /HPF Urine Yeast MOD None Seen /HPF Urine Osmolality 345 50-1200 mOsm/kg Urine Random Creatinine 60.16 30-135 mg/dL Urine Random Sodium 81 40-220 mmol/l Urine Random Potassium 11 L 25-125 mmol/L Urine Random Chloride 72 L 110-250 mmol/L DIAGNOSTICS / RADIOLOGY: PATIENT: ASHA SUERO ACCT: [id number] LOC: [facility] U: [id number] AGE/SX: 49/M ROOM: 222 RE12/15/[address]: BENJAMIN VILLELA MD : 1975 BED: 1 DIS: STATUS: ADM IN TLOC: SPEC: [id number] KATTY: 12/15/248 STATUS: COMP REQ: [id number] RECD: 12/16/[address] [facility] [address]: NYLA MORALES SOURCE: [facility] [place] ENTR: 12/16/24 [facility] DR: GRANT SUMMERS MD [facility] TEQUILA,KRUPA JEAN-BAPTISTE,CINDY TOBIN MD, MD, ASHISH MD SOUFFRANT, GARRY C MD ORDERED: AERO ID & SENS ------- ----- Procedure Result Bryn Date-Time AEROBIC ID & SENSITIVITIES Final 12/16/24-1348 MRL COLONY DESCRIPTION: DAY 1: COLONY COUNT: >100,000 CFU/ML YEAST SPECIES; NOT JETHRO ALBICANS NO FURTHER WORK-UP DONE YEAST SPECIES Test(s) performed by: [facility] [place] [address] [place] [address] ASSESSMENT: Perineal abscess, status post drainage and excisional debridement on 12/16/2024 Sepsis. Urinary tract infection. Leukocytosis. Acute renal failure. Hydronephrosis. Diabetes mellitus. Recent right Scrotal wall abscess with I&D and debridement on 08/01/2024. PLAN: Continue Meropenem. Continue linezolid. Continue GI prophylaxis. Continue pain management. Continue wound care Continue antidiabetics. Avoid nephrotoxic medications. This case was reviewed and discussed with my supervising physician and the above assessment and plan was formulated and agreed upon. ATTESTATION BY PHYSICIAN I have seen and examined the patient. I reviewed the documentation, medical decision making, and treatment plan as noted by the mid-level provider above. I agree with the findings and plan of care. GRANT SUMMERS MD, MIRTA L [facility] Dec 17, 2024 20:11
--- NOTE | 2024-12-17 21:12 | PN ---
PROGRESS NOTE Date of Service: Dec 17, 2024 Time of Service: 21:08 SUBJECTIVE: Postop day one status post incision and drainage of a deep perineal abscess extending towards the rectal region. Possibility of a rectal fistula stent needs to be ruled out. Had a dressing change the by the wound care nursing team. REVIEW OF SYSTEMS CONSTITUTIONAL: Denies fever, chills, or fatigue. HEAD/FACE: No signs of trauma. EENT: Denies eye pain, blurred vision, double vision, or light sensitivity. RESPIRATORY: Denies shortness of breath, cough, wheezing CARDIOVASCULAR: Denies chest pain, palpitation, syncope GASTROINTESTINAL/ABDOMINAL: Denies abdominal pain, constipation, diarrhea, nausea or vomiting GENITOURINARY: Scrotal pain MUSCULOSKELETAL: Denies joint pain, tenderness, or trauma. INTEGUMENTARY: Denies rash or itchiness NEUROLOGICAL/PSYCH: Denies anxiety, depression, heat or cold intolerance. PHYSICAL EXAM EYES: Anicteric. Pupils equal and reactive. HENT: No oral thrush seen, moist Oral mucosa NECK: Supple, no JVD or thyromegaly. LUNGS: Good air entry. No rales, no rhonchi. CARDIOVASCULAR: S1, S2 regular. No murmur heard. ABDOMEN: Soft, non tender, bowel sounds present, no organomegaly CENTRAL NERVOUS SYSTEM: Awake, alert, oriented x 3. No focal deficits. SKIN: No rashes, no swelling. LYMPHATICS: No peripheral lymphadenopathy MUSCULOSKELETAL: No joint swelling, erythema or tenderness. EXTREMITIES: No cyanosis or clubbing BACK: No deformity, no pressure ulcer. GENITOURINARY: Thomas catheter is in place, this fibrinous drainage from the meatus. The scrotal perineal abscess since ruptured spontaneously with drainage of purulence. Vital Signs (last 8hr) Date Time Temp Pulse Resp B/P (MAP) Pulse Ox O2 Delivery O2 Flow Rate FiO2 12/17/24 20:00 97 Room Air* 0 12/17/24 20:00 97.9 69 20 113/70 (84) 97 12/17/24 19:00 72 19 140/89 (106) 96 12/17/24 18:00 68 17 135/83 (100) 96 12/17/24 17:00 66 16 133/76 (95) 93 12/17/24 16:00 96 Room Air* 0 12/17/24 16:00 97.7 12/17/24 16:00 97.7 70 19 162/64 (96) 98 12/17/24 15:00 69 19 135/70 (91) 96 12/17/24 14:20 78 14 147/83 (104) 98 LABS: Laboratory: Test 12/17/24 20:02 12/17/24 09:22 12/17/24 09:10 12/17/24 05:13 Range/Units Whole Blood Glucose 160 H 70-110 MG/DL Ammonia < 10 L 11-32 umol/L Blood Gas Specimen Type Arterial Arterial Blood pH 7.322 L 7.350-7.450 Arterial Blood Partial Pressure CO2 36 35-48 mmHg Arterial Blood Partial Pressure O2 99.8 83.0-108.0 mmHg Arterial Blood HCO3 18.4 L 21.0-28.0 mmol/L Arterial Blood Oxygen Saturation 97.1 94.0-98.0 % Arterial Blood Base Excess -6.9 L -2.0-3.0 mmol/L Hemoglobin (Blood Gas) 11.9 L 13.5-17.5 g/dL Sodium (Blood Gas) 131 L 136-145 MMOL/L Bedside Potassium (Blood Gas) 4.9 H 3.4-4.5 MMOL/L Bedside Chloride (Blood Gas) 107 98-107 MMOL/L Bedside Glucose (Blood Gas) 367 H 65-95 MG/DL Bedside Ionized Calcium (Blood Gas) 1.21 1.15-1.33 MMOL/L Bedside Lactic Acid (Blood Gas) 0.92 H 0.36-0.75 MMOL/L Blood Gas Temperature 37.0 35.5-37.0 CELSIUS Blood Gas Flow-by 2.00 0.00-15.00 L/min Blood Gas Vent Mode 2LNC ROOM AIR FiO2 28.0 % Blood Gas Specimen Comment RR PHIL White Blood Count 12.4 H 4.8-10.8 K/uL Red Blood Count 4.42 L 4.50-6.20 MIL/uL Hemoglobin 11.0 L 14.0-18.0 g/dL Hematocrit 34.7 L 42-54 % Mean Corpuscular Volume 78.5 L 79-99 fL Mean Corpuscular Hemoglobin 24.9 L 27.0-33.0 pg Mean Corpuscular Hemoglobin Concent 31.7 L 32.0-36.0 g/dL Red Cell Distribution Width 13.6 11.0-15.5 % Platelet Count 497 H 130-400 K/uL Mean Platelet Volume 10.0 7.5-10.5 fL Nucleated Red Blood Cells 0.0 0.0-0.19 % Sodium Level 132 L 136-145 mmol/L Potassium Level 5.1 3.5-5.1 mmol/L Chloride Level 102 101-111 mmol/L Carbon Dioxide Level 20 L 21-32 mmol/L Blood Urea Nitrogen 67 H 7-18 mg/dL Creatinine 2.3 H 0.5-1.3 mg/dL Glomerular Filtration Rate Calc 34 >90 mL/min Random Glucose 430 #*H 70-105 mg/dL Total Calcium 8.8 8.5-10.1 mg/dL Phosphorus Level 5.0 H 2.5-4.9 mg/dL Magnesium Level 2.00 1.80-2.40 mg/dL Total Bilirubin 0.2 # 0.2-1.0 mg/dL Aspartate Amino Transf (AST/SGOT) 19 10-37 U/L Alanine Aminotransferase (ALT/SGPT) 15 # 12-78 U/L Alkaline Phosphatase 229 H 50-136 U/L Total Protein 7.5 6.0-8.3 g/dL Albumin 1.5 L 3.5-5.0 g/dL Test 12/17/24 05:01 12/16/24 05:17 12/15/24 21:46 Range/Units Bedside Glucose Comment Notified Nurse Immature Granulocyte % (Auto) 0.5 0-1 % Neutrophils (%) (Auto) 78.8 H 40.0-77.0 % Lymphocytes (%) (Auto) 12.9 L 21.0-51.0 % Monocytes (%) (Auto) 7.2 3.0-13.0 % Eosinophils (%) (Auto) 0.5 0.0-8.0 % Basophils (%) (Auto) 0.1 0.0-5.0 % Neutrophils # (Auto) 11.6 H 1.8-7.7 K/uL Lymphocytes # (Auto) 1.9 1.0-4.8 K/uL Monocytes # (Auto) 1.1 H 0.1-1.0 K/uL Eosinophils # (Auto) 0.07 0.00-0.70 K/uL Basophils # (Auto) 0.02 0.00-0.20 K/uL Absolute Immature Granulocyte (auto 0.08 0-1 K/uL Serum Osmolality 309 H 278-305 mOsm/kg Uric Acid 10.6 H 2.6-7.2 mg/dL Iron Level 15 #L 65-175 mcg/dL Total Iron Binding Capacity 144 L 250-450 mcg/dL Percent Iron Saturation 10.4 L 30-44 % Ferritin 598 H 30-400 ng/mL Thyroid Stimulating Hormone (TSH) 1.47 0.36-3.74 uIU/mL Urine Color LIGHT-ORANGE YELLOW Urine Appearance TURBID CLEAR Urine pH 6.5 5.0-8.0 Urine Specific [place] 1.018 1.001-1.031 Urine Protein 300 H NEGATIVE mg/dL Urine Glucose (UA) 500 H NEGATIVE mg/dL Urine Ketones NEGATIVE NEGATIVE mg/dL Urine Occult Blood LARGE H NEGATIVE Urine Nitrate NEGATIVE NEGATIVE Urine Bilirubin NEGATIVE NEGATIVE mg/dL Urine Urobilinogen 0.2 0.2-1.0 mg/dL Urine Leukocyte Esterase 500 H NEGATIVE [place]/uL Urine RBC TNTC H 0-1 /HPF Urine WBC TNTC H 0-1 /HPF Urine WBC Clumps (Auto) MANY 0-1 /HPF Urine Bacteria RARE None Seen /HPF Urine Yeast MOD None Seen /HPF Urine Osmolality 345 50-1200 mOsm/kg Urine Random Creatinine 60.16 30-135 mg/dL Urine Random Sodium 81 40-220 mmol/l Urine Random Potassium 11 L 25-125 mmol/L Urine Random Chloride 72 L 110-250 mmol/L DIAGNOSTICS / RADIOLOGY: CT of the abdomen and pelvis without contrast shows bilateral hydroureteronephrosis down to a distended bladder. CT was obtained before Thomas catheter was inserted. The testicles look normal. There was a deep scrotal abscess measuring almost 3 cm. Scrotal ultrasound also confirms a deep scrotal abscess more towards the right side. Normal Doppler findings ASSESSMENT: 49-year-old man with multiple comorbidities and risk factors for soft tissue infection presents with a deep scrotal abscess and scrotal wall edema/cellulitis PLAN: 1. Patient is now postop day one status post excisional debridement with packing of the deep perineal wound. 2. We are concerned about the depth of the wound extending right onto the rectal mucosa. We think a consultation to the appropriate service has to be made to rule out or determine if this patient has a rectal fistula. 3. The primary team can involve the wound care MD if necessary. 30 minutes spent to complete this visit more than half of the time spent at bedside in counseling and coordination of care and addressing questions posed by patient, some time was spent discussing with members of his care team, the rest of the time was spent reviewing medical records SHAWNA JEAN-BAPTISTE MD Dec 17, 2024 21:12
--- NOTE | 2024-12-17 23:40 | NUR ---
status picc line nurse at bedside for midline.
[2024-12-18] VITALS (17 sets, daily range): BP systolic 119–151; BP diastolic 50–109; PULSE 67–82; RESP 14–24; TEMP 97.7–98.2; O2SAT 95–97
[2024-12-18] MEDS: LINEZOLID 600 MG/ISO-OSM 300 ML IV SCH (00:12)
[2024-12-18] MEDS: MEROPENEM 1GM 1 GM VIAL IVPB SCH (03:00)
[2024-12-18 04:32] LABS: NUCLEATED RED BLOOD CELLS 0.0 % (0.0-0.19); PLATELET COUNT (AUTO) 569.0 K/uL (130-400); RED BLOOD CELL COUNT(AUTO) 4.12 MIL/uL (4.50-6.20); RED CELL DISTRIBUTION WIDTH 13.8 % (11.0-15.5); WHITE BLOOD COUNT (AUTO) 11.2 K/uL (4.8-10.8)
[2024-12-18 04:57] LABS: ASPARTATE AMINOTRANSFERASE 16.0 U/L (10-37); CREATININE 2.0 mg/dL (0.5-1.3); GLOMERULAR FILTR. RATE CALC 40.0 mL/min (>90); GLUCOSE,RANDOM 154.0 mg/dL (70-105); PHOSPHORUS 3.7 mg/dL (2.5-4.9); SODIUM SERUM 138.0 mmol/L (136-145); TOTAL PROTEIN, SERUM 7.0 g/dL (6.0-8.3); UREA NITROGEN, BLOOD 63.0 mg/dL (7-18)
--- NOTE | 2024-12-18 08:03 | CONS ---
CONSULTATION NOTE Date of Service: Dec 18, 2024 Reason for Consultation: eval of confusion Requesting Physician: Dr Martinez HISTORY OF PRESENT ILLNESS: Mr. Miramontes, a 49-year-old male with a complex medical history including diabetes, hypertension, chronic kidney disease, hemodialysis, peripheral artery disease, coronary artery disease, and obesity, was admitted on December 15 for a scrotal ab scess that required surgical incision and drainage. During his hospital stay, Mr. Miramontes experienced confusion, which was attributed to the administration of dilaudid for pain management. The patient reports not remembering much of the incident, describing it as a "shutdown." Nurses, concerned about the possibility of a stroke due to his altered mental status, activated a "cold stroke" protocol. The patient's confusion has since resolved. He is now awake, alert, oriented, and able to follow both simple and complex commands. Mr. Miramontes denies any current complaints or symptoms. Medical History - Obesity - Coronary artery disease - Peripheral artery disease - Chronic kidney disease requiring hemodialysis - Hypertension - Diabetes Surgical History - Surgical incision for scrotal abscess on December 15, 2024 Medications and Supplements - Dilaudid - Caused confusion and slurred speech - Patient became confused and had falls - Narcan - Administered to counteract Dilaudid effects - Patient had prolonged effects due to kidney injury REVIEW OF SYSTEMS CONSTITUTIONAL: Denies fever, chills, or fatigue. HEAD/FACE: No signs of trauma. EENT: Denies eye pain, blurred vision, double vision, or light sensitivity. RESPIRATORY: Denies shortness of breath, cough, wheezing CARDIOVASCULAR: Denies chest pain, palpitation, syncope GASTROINTESTINAL/ABDOMINAL: Denies abdominal pain, constipation, diarrhea, nausea or vomiting GENITOURINARY: Scrotal pain MUSCULOSKELETAL: Denies joint pain, tenderness, or trauma. INTEGUMENTARY: Denies rash or itchiness NEUROLOGICAL/PSYCH: confusion lethargy. Slurred speech (Resolved). Denies anxiety, depression, heat or cold intolerance. PAST MEDICAL HISTORY: as above PAST SURGICAL HISTORY: as above PAST SOCIAL HISTORY: none FAMILY HISTORY: none Coded Allergies: morphine (Unverified Allergy, Intermediate, HALLUCINATIONS, 02/13/23) PHYSICAL EXAM EYES: Anicteric. Pupils equal and reactive. HENT: No oral thrush seen, moist Oral mucosa NECK: Supple, no JVD or thyromegaly. LUNGS: Good air entry. No rales, no rhonchi. CARDIOVASCULAR: S1, S2 regular. No murmur heard. ABDOMEN: Soft, non tender, bowel sounds present, no organomegaly CENTRAL NERVOUS SYSTEM: Awake, alert, oriented x 3. No focal deficits. SKIN: No rashes, no swelling. LYMPHATICS: No peripheral lymphadenopathy MUSCULOSKELETAL: No joint swelling, erythema or tenderness. EXTREMITIES: No cyanosis or clubbing BACK: No deformity, no pressure ulcer. GENITOURINARY: Thomas catheter is in place, this fibrinous drainage from the meatus. The scrotal perineal abscess since ruptured spontaneously with drainage of purulence. Vital Sign (Last 24 Hours) 12/18/24 12/18/24 12/18/24 03:59 04:00 06:00 Temp 97.9 Pulse 69 Resp 22 B/P (MAP) 146/83 (104) Pulse Ox 96 O2 Delivery Room Air* O2 Flow Rate 0 FiO2 21 Intake & Output (last 24hrs) 12/17/24 12/17/24 12/18/24 15:00 23:00 07:00 Intake Total 650.0 ml 349.9 ml 699.9 ml Output Total 1425 ml 550 ml 725 ml Balance -775.0 ml -200.1 ml -25.1 ml LABS: Laboratory: Test 12/18/24 05:44 12/18/24 04:15 12/17/24 09:22 12/17/24 09:10 Range/Units Whole Blood Glucose 155 H 70-110 MG/DL White Blood Count 11.2 H 4.8-10.8 K/uL Red Blood Count 4.12 L 4.50-6.20 MIL/uL Hemoglobin 10.5 L 14.0-18.0 g/dL Hematocrit 32.2 L 42-54 % Mean Corpuscular Volume 78.2 L 79-99 fL Mean Corpuscular Hemoglobin 25.5 L 27.0-33.0 pg Mean Corpuscular Hemoglobin Concent 32.6 32.0-36.0 g/dL Red Cell Distribution Width 13.8 11.0-15.5 % Platelet Count 569 H 130-400 K/uL Mean Platelet Volume 9.7 7.5-10.5 fL Nucleated Red Blood Cells 0.0 0.0-0.19 % Sodium Level 138 136-145 mmol/L Potassium Level 4.2 3.5-5.1 mmol/L Chloride Level 104 101-111 mmol/L Carbon Dioxide Level 25 21-32 mmol/L Blood Urea Nitrogen 63 H 7-18 mg/dL Creatinine 2.0 H 0.5-1.3 mg/dL Glomerular Filtration Rate Calc 40 >90 mL/min Random Glucose 154 #H 70-105 mg/dL Total Calcium 8.4 L 8.5-10.1 mg/dL Phosphorus Level 3.7 2.5-4.9 mg/dL Magnesium Level 1.70 L 1.80-2.40 mg/dL Total Bilirubin 0.2 0.2-1.0 mg/dL Aspartate Amino Transf (AST/SGOT) 16 10-37 U/L Alanine Aminotransferase (ALT/SGPT) 16 12-78 U/L Alkaline Phosphatase 194 H 50-136 U/L Total Protein 7.0 6.0-8.3 g/dL Albumin 1.4 L 3.5-5.0 g/dL Ammonia < 10 L 11-32 umol/L Blood Gas Specimen Type Arterial Arterial Blood pH 7.322 L 7.350-7.450 Arterial Blood Partial Pressure CO2 36 35-48 mmHg Arterial Blood Partial Pressure O2 99.8 83.0-108.0 mmHg Arterial Blood HCO3 18.4 L 21.0-28.0 mmol/L Arterial Blood Oxygen Saturation 97.1 94.0-98.0 % Arterial Blood Base Excess -6.9 L -2.0-3.0 mmol/L Hemoglobin (Blood Gas) 11.9 L 13.5-17.5 g/dL Sodium (Blood Gas) 131 L 136-145 MMOL/L Bedside Potassium (Blood Gas) 4.9 H 3.4-4.5 MMOL/L Bedside Chloride (Blood Gas) 107 98-107 MMOL/L Bedside Glucose (Blood Gas) 367 H 65-95 MG/DL Bedside Ionized Calcium (Blood Gas) 1.21 1.15-1.33 MMOL/L Bedside Lactic Acid (Blood Gas) 0.92 H 0.36-0.75 MMOL/L Blood Gas Temperature 37.0 35.5-37.0 CELSIUS Blood Gas Flow-by 2.00 0.00-15.00 L/min Blood Gas Vent Mode 2LNC ROOM AIR FiO2 28.0 % Blood Gas Specimen Comment RR PHIL Test 12/17/24 05:01 Range/Units Bedside Glucose Comment Notified Nurse DIAGNOSTICS / RADIOLOGY: CT of the abdomen and pelvis without contrast shows bilateral hydroureteroneph rosis down to a distended bladder. CT was obtained before Thomas catheter was inserted. The testicles look normal. There was a deep scrotal abscess measuring almost 3 cm. Scrotal ultrasound also confirms a deep scrotal abscess more towards the right side. Normal Doppler findings ASSESSMENT / PLAN: Mr. Miramontes, a 49-year-old male with a history of diabetes, hypertension, chronic kidney disease, hemodialysis, peripheral artery disease, coronary artery disease, and obesity, presented with confusion following treatment for a scrotal abscess. Acute Toxic Encephalopathy Assessment: Patient developed acute toxic encephalopathy secondary to dilaudid administration. The patient was initially admitted on December 15 for a scrotal abscess, which was surgically incised. Due to pain, dilaudid was administered. However, the patient became confused, leading to concerns about a possible stroke. A cold stroke was activated, and neurology was consulted. MRI of the brain with contrast was negative for stroke. The patient's creatinine was elevated at 2.3, suggesting impaired renal function, which likely contributed to prolonged drug effects. The patient's white blood cell count was initially elevated at 18 due to the abscess but has been trending down to 12. Currently, the patient is awake, alert, oriented, and following simple and complex commands. Plan: - Discontinue dilaudid to prevent further confusion - Continue close observation - No further neurological tests needed at this time Thank you for your consultation. I will sign off. SUMMER OLIVA MD Dec 18, 2024 08:03
[2024-12-18] MEDS: ASPIRIN 81 MG EC TAB PO SCH (08:24)
[2024-12-18] MEDS: MAGNESIUM 2GM PREMIX 50ML 50 ML IV PRN (10:42)
--- NOTE | 2024-12-18 11:50 | PN ---
[facility] PROGRESS NOTE Date of Service: Dec 18, 2024 Time of Service: 11:48 SUBJECTIVE: 49-year-old male with history of poorly controlled type 2 diabetes mellitus, hypertension, hyperlipidemia, GERD, peripheral arterial disease, history of coronary artery disease with prior history of coronary stenting, peripheral arterial disease with prior history of angioplasty and stenting, morbid obesity, history of scrotal cellulitis with abscess requiring hospitalization in [facility] [place] on 07/2024. Patient presented to the ER for further evaluation of progressive pain, swelling to the right side of the scrotum ongoing for the past three days. Pain is moderate in intensity involving the right hemiscrotum. Patient reported having subjective fevers, chills as well feels. Reported having dysuria and suprapubic discomfort as well. Patient reported that he was previously hospitalized in [facility] [place] on 07/2024 where he was found to have right epididymo-orchitis. Patient during his hospitalization needed incision and drainage with debridement of right perineal and Ischiorectal abscess tracking into the scrotum by Dr. Choudhury on 08/01/2024. During this hospita lization had urinary retention requiring Thomas catheter placement. Discharged to long-term acute care for further IV antibiotic therapy. Patient denies any active chest pain, nausea, vomiting, or significant abdominal pain. On presentation to the ER, patient was noted to be in urinary retention with Thomas catheter placement yielding about 400 mL of urine. Patient underwent testicular ultrasound which showed findings of right scrotal wall abscess and mildly reduced flow to the right testicle. Patient underwent CT abdomen pelvis without contrast which showed findings of severe bilateral hydronephrosis with pyelonephritis, cystitis, and 3.6 cm x 5.1 cm right penoscrotal hypodense collection concerning for abscess. Patient admitted for further treatment and management of sepsis with underlying UTI, scrotal wall cellulitis with abscess, acute kidney injury and severe hyperglycemia. Consultation with Urology requested. Patient started on broad-spectrum antibiotics. 12/16 patient remains admitted to the PCU, blood pressure 135/86, afebrile, saturating normal on room air, WBC 14.8, hemoglobin 10.3, hematocrit 32.5, platelet count of 424. Sodium 131, potassium 4.4, CO2 of 19, BUN of 79, creatinine 3.3, uric acid 10.6, phosphorus 5.0. Iron level at 15. Blood gas with an ABG showing a pH of 7.32, pCO2 38, bicarb 19.3. Blood cultures no growth after 24 hours. Urine culture [id number] CFU, identification and sensitivity in progress. Patient evaluated by urologist, they abscesses and spontaneously draining, but the patient is still going to need formal incision and drainage. Clinical exam did not reveal findings suggestive of torsion. There was scrotal wall thickening worse of the right side with cellulitis. Recommended IV antibiotics for now. I will request a stat ABG to assess metabolic status. Patient with low iron level, follow stool occult blood, if positive we will request GI consultation. Patient currently on ferrous sulfate 325 mg p.o. daily. Infectious Disease consultation requested, follow input and recommendation. Patient with creatinine of 3.3, nephrology input noted and appreciated. Patient is started on insulin glargine 20 units subcutaneously daily as well as insulin sliding scale, continue to follow endocrinology input and recommendation. Renal ultrasound will be ordered, discussed with the riding double, if hydronephrosis we will request Urology consult. Follow up PSA level. During my visit patient comfortably in bed, alert oriented x3, no acute events overnight, results of renal function discussed with the patient and the at bedside. 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 Blood pressure 161/79, heart rate of 67, saturating 99% 2 L nasal cannula. CBC with a hemoglobin 11.0, hematocrit 34.7, WBC 12.4, platelet count 497. Sodium 132, potassium 5.1, BUN of 67, creatinine 2.3, (improving compared to yesterday) random glucose 430, total calcium 8.8, magnesium 2.0. Ammonia level less than 10. ABG showing a pH of 7.32, bicarb of 18.4. Renal ultrasound showed urinary bladder wall thickening consult for cystitis, previously bilateral moderate hydroureteronephrosis not visualized. CT head without contrast no acute intracranial abnormality, stable encephalomalacia in the bilateral inferior cerebellar hemispheres suggesting sequela of prior insult, no significant interval change. Ultrasound carotids no hemodynamically significant stenosis bilateral carotid or vertebral arteries. Continue the patient on broad-spectrum IV antibiotics, follow results of intraoperative cultures, continue to follow ID input recommendation, follow urology input and recommendation. Neurology consultation requested, we will follow input and recommendation. Patient upgraded to the ICU, continue close monitoring of the patient's mental status. Follow critical care input and recommendations. Renal function slowly improving, continue to monitor in a.m., continue to assess metabolic status with daily ABG, patient is started on sodium bicarbonate drip. Continue long-acting insulin with glargine 50 units subcutaneously daily as well as insulin sliding scale. A.m. labs At the time of my visit, patient is comfortably in bed, alert and oriented x3, results of CT head discussed with the patient, all questions answered, he denies dizziness, no headache, no chest pain, shortness shortness for breath, no nausea, no vomiting. No weakness to both upper or lower extremities, able to move four extremities well. Able to show me all his teeth without deviation of the mouth. not present in the room at the time of my visit. 12/18 patient remains admitted to the ICU, hemodynamically stable, BP 133/50, afebrile, saturating normal on room air, during my visit the patient is alert oriented x3, denies dizziness, no headache, no chest pain, shortness shortness for breath, no nausea, no vomiting, no focal neurological deficit noted, no slurry speech, able to move both upper and lower extremity. Hemoglobin 10.5, hematocrit 32.2, WBC of 11.2. Results of culture from scrotal abscess positive for Streptococcus agalactiae group B, urine culture positive for yeast. Echocardiogram done, the apical anterior lateral, inferolateral carrillo are severely hypokinetic, the apical inferior wall is thin, scarring and akinetic, LVEF 40%, indeterminate diastolic dysfunction, trace mitral regurgitation, no pericardial effusion. Neck MRA no significant stenosis appreciated. Patient will be downgraded to the PCU, continue broad-spectrum antibiotics, continue to follow urology and ID input and recommendations. REVIEW OF SYSTEMS CONSTITUTIONAL: fevers, chills and malaise NEUROLOGICAL: Denies headache, amaurosis fugax, motor weakness, sensory deficit, vertigo/spinning sensation, gait abnormalities, or tremors. ENT: No hearing loss, otalgia, otorrhea, rhinitis, rhinorrhea, hoarseness, or sore throat. CARDIOVASCULAR: Denies any exertional angina, dyspnea on exertion, orthopnea, paroxysmal nocturnal dyspnea, palpitations, life-threatening arrhythmias, claudication. PULMONARY: Denies any shortness of breath, cough, phlegm/sputum, hemoptysis, pleuritic chest pain. SLEEP: Denies morning headaches, daytime somnolence or napping. Denies difficulty falling asleep, staying asleep, waking from sleep. Denies knowledge of snoring. GASTROINTESTINAL: Denies any type of dysphagia to either liquids or solids. Denies nausea, vomiting, pyrosis, early satiety, abdominal pain, diarrhea, constipation, or changes in stool consistency or caliber. Denies coffee-ground emesis, hematemesis, hematochezia, or melanotic stools. GENITOURINARY: redness, swelling and pain to the right side of the scrotum ENDOCRINOLOGIC: poorly controlled DM II with hyperglycemia HEMATOLOGIC: Denies thrombophilia/previous clots, or coagulopathy/bleeding disorders. ONCOLOGIC: Denies personal history of malignancy. DERMATOLOGIC: redness and swelling to the right richie-scrotum PSYCHIATRIC: Denies any suicidal or homicidal ideation. Denies hallucinations. PHYSICAL EXAM GENERAL APPEARANCE: The patient is awake, alert, and oriented, in no acute cardiopulmonary distress. NEUROLOGICAL: Cranial nerves II-XII grossly intact. Motor is 5/5 in bilateral upper and lower extremities proximal to distal. No sensory deficits. HEENT: Face is symmetric. Pupils are equal and reactive. Extraocular movements are intact. NECK: Supple. No JVD. No thyromegaly. No submental, submandibular, pre- /postauricular, occipital or supraclavicular lymphadenopathy. CHEST: Normal chest expansion. No Telemetry. LUNGS: Absence of any rales, rhonchi or any wheezing. CARDIOVASCULAR: Regular. S1 and S2 normal. No appreciable rubs, murmurs or gallops. ABDOMEN: Soft, nontender, and nondistended. There is no rebound, voluntary guarding, or rigidity. : Thomas catheter noted draining cloudy urine, significant redness and swelling noted of the scrotum, mild tenderness to palpation EXTREMITIES: No significant swelling noted Vital Signs (last 8hr) Date Time Temp Pulse Resp B/P (MAP) Pulse Ox O2 Delivery O2 Flow Rate FiO2 12/18/24 09:00 74 17 133/50 (77) 94 12/18/24 08:00 98.2 12/18/24 08:00 98.2 72 23 144/98 (113) 95 12/18/24 08:00 97 Room Air* 0 12/18/24 07:00 72 17 151/87 (108) 94 12/18/24 06:00 69 22 146/83 (104) 96 12/18/24 05:00 68 16 135/83 (100) 97 12/18/24 04:00 97.9 68 18 138/72 (94) 96 12/18/24 03:59 96 Room Air* 0 21 LABS: Laboratory: Test 12/18/24 10:45 12/18/24 04:15 12/17/24 09:22 12/17/24 09:10 Range/Units Whole Blood Glucose 190 H 70-110 MG/DL White Blood Count 11.2 H 4.8-10.8 K/uL Red Blood Count 4.12 L 4.50-6.20 MIL/uL Hemoglobin 10.5 L 14.0-18.0 g/dL Hematocrit 32.2 L 42-54 % Mean Corpuscular Volume 78.2 L 79-99 fL Mean Corpuscular Hemoglobin 25.5 L 27.0-33.0 pg Mean Corpuscular Hemoglobin Concent 32.6 32.0-36.0 g/dL Red Cell Distribution Width 13.8 11.0-15.5 % Platelet Count 569 H 130-400 K/uL Mean Platelet Volume 9.7 7.5-10.5 fL Nucleated Red Blood Cells 0.0 0.0-0.19 % Sodium Level 138 136-145 mmol/L Potassium Level 4.2 3.5-5.1 mmol/L Chloride Level 104 101-111 mmol/L Carbon Dioxide Level 25 21-32 mmol/L Blood Urea Nitrogen 63 H 7-18 mg/dL Creatinine 2.0 H 0.5-1.3 mg/dL Glomerular Filtration Rate Calc 40 >90 mL/min Random Glucose 154 #H 70-105 mg/dL Total Calcium 8.4 L 8.5-10.1 mg/dL Phosphorus Level 3.7 2.5-4.9 mg/dL Magnesium Level 1.70 L 1.80-2.40 mg/dL Total Bilirubin 0.2 0.2-1.0 mg/dL Aspartate Amino Transf (AST/SGOT) 16 10-37 U/L Alanine Aminotransferase (ALT/SGPT) 16 12-78 U/L Alkaline Phosphatase 194 H 50-136 U/L Total Protein 7.0 6.0-8.3 g/dL Albumin 1.4 L 3.5-5.0 g/dL Ammonia < 10 L 11-32 umol/L Blood Gas Specimen Type Arterial Arterial Blood pH 7.322 L 7.350-7.450 Arterial Blood Partial Pressure CO2 36 35-48 mmHg Arterial Blood Partial Pressure O2 99.8 83.0-108.0 mmHg Arterial Blood HCO3 18.4 L 21.0-28.0 mmol/L Arterial Blood Oxygen Saturation 97.1 94.0-98.0 % Arterial Blood Base Excess -6.9 L -2.0-3.0 mmol/L Hemoglobin (Blood Gas) 11.9 L 13.5-17.5 g/dL Sodium (Blood Gas) 131 L 136-145 MMOL/L Bedside Potassium (Blood Gas) 4.9 H 3.4-4.5 MMOL/L Bedside Chloride (Blood Gas) 107 98-107 MMOL/L Bedside Glucose (Blood Gas) 367 H 65-95 MG/DL Bedside Ionized Calcium (Blood Gas) 1.21 1.15-1.33 MMOL/L Bedside Lactic Acid (Blood Gas) 0.92 H 0.36-0.75 MMOL/L Blood Gas Temperature 37.0 35.5-37.0 CELSIUS Blood Gas Flow-by 2.00 0.00-15.00 L/min Blood Gas Vent Mode 2LNC ROOM AIR FiO2 28.0 % Blood Gas Specimen Comment RR PHIL Test 12/17/24 05:01 Range/Units Bedside Glucose Comment Notified Nurse Current Medications Medications (Trade) Dose Ordered Sig/Gaby Route PRN Reason Start Time Stop Time Status Last Admin Dose Admin Acetaminophen (acetaMINOPHEN) 1,000 mg ONCE IVPB 12/17/24 17:00 01/16/25 16:59 12/17/24 17:11 1,000 MG Aspirin (Aspirin 81mg Ec Tab) 81 mg DAILY PO 12/18/24 09:00 01/17/25 08:59 12/18/24 08:24 81 MG Atorvastatin Calcium (LIPItor 40MG) 40 mg HS PO 12/15/24 21:00 01/14/25 20:59 12/17/24 20:09 40 MG Dextrose (D50w) 50 ml AD PRN IV HYPOGLYCEMIA PROTOCOL 12/15/24 13:30 01/14/25 13:29 Famotidine (Pepcid 20mg Vial) 20 mg DAILY IV 12/16/24 09:00 12/17/24 10:49 DC 12/17/24 08:53 20 MG Ferrous Sulfate (Ferrous Sulfate) 325 mg DAILY PO 12/16/24 09:00 01/15/25 08:59 12/18/24 08:24 325 MG Glucagon (Glucagon 1mg Kit) 1 mg AD PRN IM HYPOGLYCEMIA PROTOCOL 12/15/24 13:30 01/14/25 13:29 Heparin Sodium (Porcine) (HEParin 5,000 UNIT VIAL) 5,000 unit BID SQ 12/17/24 11:00 01/16/25 10:59 12/18/24 08:19 5,000 UNIT Home Med (Home Medication) (Sennosides/ Docusate Sodium (Colace 2-i... DAILY PO 12/16/24 09:00 01/15/25 08:59 Hydralazine HCl (APRESOLine 20MG INJ) 5 mg Q6H PRN IV ADMINISTER FOR SBP > 160 12/15/24 14:30 01/14/25 14:29 Hydromorphone HCl (DiLAUDid 0.5MG INJ) 0.2 mg Q6H PRN IVP SEVERE PAIN (7-10) 12/15/24 13:30 12/18/24 09:00 DC 12/17/24 04:34 0.2 MG Insulin Glargine (LANtus 100 UNITS/ML 10 ML VIAL) 20 units DAILY SQ 12/16/24 09:00 12/17/24 07:32 DC Insulin Glargine (LANtus 100 UNITS/ML 10 ML VIAL) 20 units HS SQ 12/15/24 21:00 12/16/24 06:19 DC 12/15/24 21:05 20 UNITS Insulin Glargine (LANtus 100 UNITS/ML 10 ML VIAL) 25 units HS SQ 12/15/24 21:00 12/15/24 18:52 DC Insulin Glargine (LANtus 100 UNITS/ML 10 ML VIAL) 50 units DAILY SQ 12/17/24 09:00 01/16/25 08:59 12/18/24 08:18 50 UNITS Insulin Human Regular (humuLIN R 100 UNIT/ML 3ML) 8 unit TIDAC SQ 12/16/24 07:30 12/17/24 07:32 DC 12/17/24 06:59 8 UNIT Insulin Human Regular (humuLIN R 100 UNIT/ML 3ML) 15 unit TIDAC SQ 12/17/24 07:30 01/16/25 07:29 12/18/24 08:19 15 UNIT Insulin Human Regular (humuLIN R 100 UNIT/ML 3ML) INSULIN SLIDING SCAL... ACHS SQ 12/15/24 16:30 12/16/24 06:19 DC 12/15/24 21:03 5 UNIT Insulin Human Regular (humuLIN R 100 UNIT/ML 3ML) INSULIN SLIDING SCAL... ACHS SQ 12/16/24 07:30 01/15/25 07:29 12/17/24 17:18 6 UNIT Linezolid 300 ml @ 150 mls/hr Q12H IV 12/15/24 21:00 12/17/24 19:54 DC 12/17/24 08:53 150 MLS/HR Linezolid 300 ml @ 150 mls/hr Q12H IV 12/17/24 21:00 12/19/24 20:59 12/18/24 08:22 150 MLS/HR Magnesium Sulfate 50 ml @ 0 mls/hr PROTOCOL PRN IV MAGNESIUM PROTOCOL 12/18/24 09:30 01/17/25 09:29 12/18/24 10:42 25 MLS/HR Meropenem (Merrem 1gm) 1 gm Q12H IVPB 12/15/24 16:00 12/17/24 19:54 DC 12/17/24 17:11 1 GM Meropenem (Merrem 1gm) 1 gm Q12H IVPB 12/18/24 04:00 12/20/24 23:00 12/18/24 03:00 1 GM Naloxone HCl (NARcan HCL 1 MG/ ML 2ML SYG) 2 mg ONCE IV 12/17/24 11:00 12/17/24 10:36 DC Pantoprazole Sodium (PROTonix 40MG INJ) 40 mg DAILY IVP 12/18/24 09:00 01/17/25 08:59 12/18/24 08:22 40 MG Pharmacy Profile Note (Pharmacy Communication) 1 each ONCE MISC 12/15/24 13:30 12/15/24 14:18 DC Sodium Bicarbonate 150 meq/Dextrose 1,150 ml @ 50 mls/hr Q23H IVP 12/17/24 11:00 12/18/24 11:36 DC 12/18/24 08:25 50 MLS/HR Sodium Bicarbonate (Sodium Bicarbonate) 650 mg QID PO 12/16/24 13:00 01/15/25 12:59 12/18/24 08:22 650 MG Sodium Chloride 1,000 ml @ 75 mls/hr [id number] IV 12/15/24 13:30 12/17/24 10:49 DC 12/17/24 01:40 75 MLS/HR Tamsulosin HCl (FloMAX) 0.4 mg DAILY PO 12/16/24 09:00 01/15/25 08:59 12/18/24 08:22 0.4 MG Vancomycin HCl 250 ml @ 125 mls/hr Q48H IV 12/17/24 11:00 12/15/24 13:19 DC Vancomycin HCl (Vancomycin Protocol) 1 each AD IV 12/15/24 11:00 12/15/24 23:52 DC Vitamin B Complex/ Vit C/Folic Acid (Nephrovite Tablet) 1 cap DAILY PO 12/16/24 09:00 01/15/25 08:59 12/18/24 08:22 1 CAP DIAGNOSTICS / RADIOLOGY: [ ] ASSESSMENT: Sepsis secondary to complicated urinary tract infection and scrotal cellulitis w ith abscess, POA Progressive scrotal cellulitis with developing right hemiscrotal abscess, POA status post excisional debridement of necrotic soft tissue from the perineum secondary to 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) Severe complicated urinary tract infection, POA Urinary retention status post Thomas catheter placement, POA Bilateral hydronephrosis, POA Acute kidney injury with underlying history of chronic kidney disease, POA Severe nonketotic hyperglycemia with poorly controlled type 2 diabetes mellitus, POA History of Farxiga use as outpatient, POA Hypertension, POA History of dual antiplatelet therapy with aspirin and Plavix as outpatient, POA History of coronary artery disease with prior history of coronary intervention and stenting, POA History of peripheral arterial disease with history of lower extremity angioplasty and stenting, POA History of TIA, POA Hypertension, POA Hyperlipidemia, POA Debility, POA Right eye blindness, POA Decreased vision of left eye, POA History of iron deficiency anemia, POA History of hospitalization in [facility] [place] for right epididymo-orchitis with abscess requiring surgical drainage,07/2024, POA PLAN: patient remains admitted to the ICU, hemodynamically stable, BP 133/50, afebrile, saturating normal on room air, during my visit the patient is alert o riented x3, denies dizziness, no headache, no chest pain, shortness shortness for breath, no nausea, no vomiting, no focal neurological deficit noted, no slurry speech, able to move both upper and lower extremity. Hemoglobin 10.5, hematocrit 32.2, WBC of 11.2. Results of culture from scrotal abscess positive for Streptococcus agalactiae group B, urine culture positive for yeast. Echocardiogram done, the apical anterior lateral, inferolateral carrillo are severely hypokinetic, the apical inferior wall is thin, scarring and akinetic, LVEF 40%, indeterminate diastolic dysfunction, trace mitral regurgitation, no pericardial effusion. Neck MRA no significant stenosis appreciated. Patient will be downgraded to the PCU, continue broad-spectrum antibiotics, continue to follow urology and ID input and recommendations. NEURO: Minimize central acting medications as possible. Fall Precautions. Well lighted room through the day and minimize interruptions through the night to prevent acute delirium. PULMONARY: Supplemental 02 as needed BiPAP as necessary, for respiratory distress Titrate Fio2 to keep Spo2 > or = 90% DuoNebs and CPT as needed IS hourly while awake for pulmonary hygiene prn Out of bed to chair as tolerated Maintain aspiration precautions at all times CARDIOVASCULAR: Follow hemodynamics. Vital signs per facility protocol GI & NUTRITION: Continue nutritional support Aspirations precautions Prokinetic agents and laxatives as needed KIDNEYS & ELECTROLYTES: Strict monitoring of intake and output Daily weights Avoid nephrotoxic agents Monitor electrolytes and replace as needed Goal urine output of 30mL/hr or 0.5mL/kg/hr Medications to be dosed according to renal function. Avoid contrast if possible ENDOCRINE: Maintain blood glucose between 100-180 at all times. Insulin sliding scale for blood glucose management Hypoglycemia and hyperglycemia protocol in place INFECTIOUS DISEASE: Trend temperature, WBC and procalcitonin level Follow cultures, deescalate antibiotics as soon as possible. Panculture if new onset fever HEMATOLOGY & COAGULATION: Monitor H&H. Keep Hgb > 7 Transfuse 1 unit of PRBC for Hgb < 7 Transfuse 1 pack of platelets of platelets < 20, 000 Watch for any signs and symptoms of bleeding SKIN: Pressure ulcer prevention per facility protocol Specialty mattress as needed ORTHO/REHAB Continue PT/OT PRN: MEDICATIONS Tylenol 650 mg po every 4 hrs for fever zofran 4 mg IV every 6 hrs for n/v Hydralazine 5 mg IV every 4 hrs systolic pressure > 160 bowel regiment: lactulose 20 gm PO BID PRN constipation Supportive measures: Continue GI and DVT prophylaxis Disposition: Pending improvement in clinical condition All questions answered time spent: > 35 min JANET IVAN MD Dec 18, 2024 11:50
[2024-12-18 14:58] LABS: APPEARANCE,URINE TURBID (CLEAR); GLUCOSE, URINE (UA) NEGATIVE (NEGATIVE); LEUKOCYTE ESTERASE ,URINE 500 Leu/uL (NEGATIVE); NITRATE,URINE NEGATIVE (NEGATIVE); OCCULT BLOOD,URINE MODERATE (NEGATIVE)
[2024-12-18 15:02] LABS: ADD UA MICROSCOPIC YES
--- NOTE | 2024-12-18 16:30 | NUR ---
CM note Spoke with pt and with spouse via telephone to discuss discharge plan for pt. Discuss DC options for continuation of antibiotics and wound care, Spouse stated pt was at [facility] in July 2024, verbalized will consider [facility] once they have spoken with MD. SY to follow up.
--- NOTE | 2024-12-18 17:38 | PN ---
INFECTIOUS DISEASE PROGRESS NOTE Date of Service: Dec 18, 2024 SUBJECTIVE: This is a 49-year-old male patient who was seen and examined at bedside in room 217. Patient is s/p drainage and excisional debridement of the scrotal wall abscess on 12/16/2024. We will follow up on the wound culture results. No fever, temperature is 98.1. Patient continues on Meropenem and linezolid. MRI done yesterday was negative for intracranial hemorrhage and the neck MRA was negative for stenosis. We will continue to follow patient's care. PHYSICAL EXAM EYES: Anicteric. Pupils equal and reactive. HENT: No oral thrush seen, moist Oral mucosa. NECK: Supple, no JVD or thyromegaly. LUNGS: Good air entry. No rales, no rhonchi. CARDIOVASCULAR: S1, S2 regular. No murmur heard. ABDOMEN: Soft, non tender, bowel sounds present, no organomegaly. CENTRAL NERVOUS SYSTEM: Awake, alert, oriented x 3. SKIN: No rashes, no swelling. LYMPHATICS: No peripheral lymphadenopathy MUSCULOSKELETAL: No joint swelling, erythema or tenderness. EXTREMITIES: No cyanosis or clubbing BACK: No deformity, no pressure ulcer. GENITOURINARY: No dysuria or hematuria. Thomas catheter. Scrotal abscess, s/p drainage and debridement. Vital Sign (Last 12 Hours) 12/18/24 12/18/24 12/18/24 12/18/24 06:00 07:00 08:00 08:00 Temp 98.2 Pulse 69 72 72 Resp 22 17 23 B/P (MAP) 146/83 (104) 151/87 (108) 144/98 (113) Pulse Ox 96 94 97 95 O2 Delivery Room Air* O2 Flow Rate 0 FiO2 12/18/24 12/18/24 12/18/24 12/18/24 08:00 09:00 10:00 11:00 Temp 98.2 Pulse 74 76 72 Resp 17 20 20 B/P (MAP) 133/50 (77) 147/82 (103) 148/109 (122) Pulse Ox 94 94 98 FiO2 21 21 12/18/24 12/18/24 12/18/24 12:00 12:00 16:00 Temp 98.1 98.1 98.1 Pulse 82 Resp 24 B/P (MAP) 139/81 (100) Pulse Ox 96 FiO2 21 Intake & Output (last 24hrs) 12/17/24 12/17/24 12/18/24 14:59 22:59 06:59 Intake Total 600.0 ml 399.9 ml 699.9 ml Output Total 1425 ml 550 ml 725 ml Balance -825.0 ml -150.1 ml -25.1 ml LABS: Laboratory: Test 12/18/24 15:43 12/18/24 13:40 12/18/24 04:15 12/17/24 09:22 Range/Units Whole Blood Glucose 122 H 70-110 MG/DL Urine Color LIGHT-ORANGE YELLOW Urine Appearance TURBID CLEAR Urine pH 6.0 5.0-8.0 Urine Specific Turner 1.011 1.001-1.031 Urine Protein 100 H NEGATIVE mg/dL Urine Glucose (UA) NEGATIVE NEGATIVE mg/dL Urine Ketones NEGATIVE NEGATIVE mg/dL Urine Occult Blood MODERATE H NEGATIVE Urine Nitrate NEGATIVE NEGATIVE Urine Bilirubin NEGATIVE NEGATIVE mg/dL Urine Urobilinogen 0.2 0.2-1.0 mg/dL Urine Leukocyte Esterase 500 H NEGATIVE [place]/uL Urine RBC None 0-1 /HPF Urine WBC 0-1 0-1 /HPF Urine Bacteria None None Seen /HPF White Blood Count 11.2 H 4.8-10.8 K/uL Red Blood Count 4.12 L 4.50-6.20 MIL/uL Hemoglobin 10.5 L 14.0-18.0 g/dL Hematocrit 32.2 L 42-54 % Mean Corpuscular Volume 78.2 L 79-99 fL Mean Corpuscular Hemoglobin 25.5 L 27.0-33.0 pg Mean Corpuscular Hemoglobin Concent 32.6 32.0-36.0 g/dL Red Cell Distribution Width 13.8 11.0-15.5 % Platelet Count 569 H 130-400 K/uL Mean Platelet Volume 9.7 7.5-10.5 fL Nucleated Red Blood Cells 0.0 0.0-0.19 % Sodium Level 138 136-145 mmol/L Potassium Level 4.2 3.5-5.1 mmol/L Chloride Level 104 101-111 mmol/L Carbon Dioxide Level 25 21-32 mmol/L Blood Urea Nitrogen 63 H 7-18 mg/dL Creatinine 2.0 H 0.5-1.3 mg/dL Glomerular Filtration Rate Calc 40 >90 mL/min Random Glucose 154 #H 70-105 mg/dL Total Calcium 8.4 L 8.5-10.1 mg/dL Phosphorus Level 3.7 2.5-4.9 mg/dL Magnesium Level 1.70 L 1.80-2.40 mg/dL Total Bilirubin 0.2 0.2-1.0 mg/dL Aspartate Amino Transf (AST/SGOT) 16 10-37 U/L Alanine Aminotransferase (ALT/SGPT) 16 12-78 U/L Alkaline Phosphatase 194 H 50-136 U/L Total Protein 7.0 6.0-8.3 g/dL Albumin 1.4 L 3.5-5.0 g/dL Ammonia < 10 L 11-32 umol/L Test 12/17/24 09:10 12/17/24 05:01 Range/Units Blood Gas Specimen Type Arterial Arterial Blood pH 7.322 L 7.350-7.450 Arterial Blood Partial Pressure CO2 36 35-48 mmHg Arterial Blood Partial Pressure O2 99.8 83.0-108.0 mmHg Arterial Blood HCO3 18.4 L 21.0-28.0 mmol/L Arterial Blood Oxygen Saturation 97.1 94.0-98.0 % Arterial Blood Base Excess -6.9 L -2.0-3.0 mmol/L Hemoglobin (Blood Gas) 11.9 L 13.5-17.5 g/dL Sodium (Blood Gas) 131 L 136-145 MMOL/L Bedside Potassium (Blood Gas) 4.9 H 3.4-4.5 MMOL/L Bedside Chloride (Blood Gas) 107 98-107 MMOL/L Bedside Glucose (Blood Gas) 367 H 65-95 MG/DL Bedside Ionized Calcium (Blood Gas) 1.21 1.15-1.33 MMOL/L Bedside Lactic Acid (Blood Gas) 0.92 H 0.36-0.75 MMOL/L Blood Gas Temperature 37.0 35.5-37.0 CELSIUS Blood Gas Flow-by 2.00 0.00-15.00 L/min Blood Gas Vent Mode 2LNC ROOM AIR FiO2 28.0 % Blood Gas Specimen Comment RR PHIL Bedside Glucose Comment Notified Nurse DIAGNOSTICS / RADIOLOGY: PATIENT: ASHA SUERO ACCT: [id number] LOC: [facility] U: [id number] AGE/SX: 49/M ROOM: 217 RE12/15/[address]: BENJAMIN VILLELA MD : 1975 BED: 1 DIS: STATUS: ADM IN TLOC: SPEC: [id number] KATTY: 12/16/24 STATUS: RES REQ: [id number] RECD: 12/16/[address]: SHAWNA JEAN-BAPTISTE MD SOURCE: SCROTUM ENTR: 12/16/24-[address]: GRANT SUMMERS MD SPDES: KRUPA WELLER MD,BENJAMIN BAUTISTA MD, MD, GARRY C MD ORDERED: MERCEDES CULTURE, AEROBIC CULTURE ------ ------ Procedure Result Bryn Date-Time ANAEROBIC CULTURE Preliminary 12/18/24-1100 [facility] COLONY DESCRIPTION: REPORT 1: NO ANAEROBES AT 24-35 HOURS; STUDIES TO CONTINUE Test(s) performed by: [facility] [address] [place] [address] AEROBIC CULTURE Preliminary 12/18/24-1101 [facility] COLONY DESCRIPTION: REPORT 1: 2+ SKIN JOEY ; STUDIES TO CONTINUE COAGULASE NEGATIVE STAPHYLOCOCCUS 1+ GRAM POSITIVE COCCI IN CHAINS IDENTIFICATION TO FOLLOW BETA HEMOLYTIC STREPTOCOCCUS GROUP B COMMENT: BETA STREPTOCOCCUS REMAIN SUSCEPTIBLE TO PENICILLIN COMMENT: NO FURTHER WORK-UP STREP AGALACTIAE GROUP B ASSESSMENT: Perineal abscess, s/p drainage and excisional debridement on 12/16/2024 Sepsis. Urinary tract infection. Leukocytosis. Acute renal failure. Hydronephrosis. Diabetes mellitus. Recent right Scrotal wall abscess with I&D and debridement on 08/01/2024. PLAN: Continue Meropenem. Continue linezolid. Continue GI prophylaxis. Continue pain management. Continue wound care Continue antidiabetics. Avoid nephrotoxic medications. We will continue to follow up on the culture results. This case was reviewed and discussed with my supervising physician and the above assessment and plan was formulated and agreed upon. ATTESTATION BY PHYSICIAN I have seen and examined the patient. I reviewed the documentation, medical decision making, and treatment plan as noted by the mid-level provider above. I agree with the findings and plan of care. GRANT SUMMERS MD, [facility] Dec 18, 2024 17:38
--- NOTE | 2024-12-18 20:05 | PN ---
[facility] PROGRESS NOTE Date Patient Seen: Dec 18, 2024 Time of Visit: 20:00 Supervising Physician: Dr Norm Pradhan Primary Care Physician: Godwin Mc MD Outpatient Specialists: [ ] Inpatient Consults: Dr Francisco. Dr Kruse, Dr Oropeza, Dr Estrella, MD Dr Greta Bradley Attending Physician: [employer] team PROBLEM LIST: Acute Toxic encephalopathy due to opioid use (hydromorphone) on 12/17/24 Perineal abscess, status post drainage and excisional debridement on 12/16/2024 Sepsis Urinary tract infection Leukocytosis Acute renal failure Hydronephrosis Diabetes mellitus Recent right Scrotal wall abscess with I&D and debridement on 08/01/2024 Previous Hx of TIA INTERVAL HISTORY: Patient seen and examined bedside, all laboratory radiology studies have been reviewed. No acute events overnight. Patient afebrile. Family has been updated. AO4 comfortable in bed, watching tv pain controlled Sats 97% room air pending cultures- Zyvox and Merrem Plan: FOllow surgical recs - concern for fistula ID recs, cultures, ABX follow Neuro recs pain control tele Gi and DVT prophylaxis REVIEW OF SYSTEMS: unable to perform PHYSICAL EXAM: GENERAL: lethargic weak, awake oriented x 2 HEENT: EOMI, Sclera non icteric, moist mucosa NECK: Supple, no JVD, trachea midline LUNGS: Clear breath sounds bilaterally. No wheezes HEART: Regular rate and rhythm. Normal S1 and S2, without murmurs ABD: Abdomen soft, nontender. Bowel sounds present, wet to dry dressing to scrotal region. EXT: No clubbing cyanosis or edema NEURO: Alert and oriented to person, follows commands Vital Signs (last 8hr) Date Time Temp Pulse Resp B/P (MAP) Pulse Ox O2 Delivery O2 Flow Rate FiO2 12/18/24 16:00 98.1 12/18/24 15:42 75 20 146/87 95 Room Air LABS: Hematology Labs: Test 12/18/24 04:15 Range/Units White Blood Count 11.2 H 4.8-10.8 K/uL Red Blood Count 4.12 L 4.50-6.20 MIL/uL Hemoglobin 10.5 L 14.0-18.0 g/dL Hematocrit 32.2 L 42-54 % Mean Corpuscular Volume 78.2 L 79-99 fL Mean Corpuscular Hemoglobin 25.5 L 27.0-33.0 pg Mean Corpuscular Hemoglobin Concent 32.6 32.0-36.0 g/dL Red Cell Distribution Width 13.8 11.0-15.5 % Platelet Count 569 H 130-400 K/uL Mean Platelet Volume 9.7 7.5-10.5 fL Nucleated Red Blood Cells 0.0 0.0-0.19 % Chemistry Labs: Test 12/18/24 15:43 12/18/24 04:15 12/17/24 09:22 12/17/24 05:01 Range/Units Whole Blood Glucose 122 H 70-110 MG/DL Sodium Level 138 136-145 mmol/L Potassium Level 4.2 3.5-5.1 mmol/L Chloride Level 104 101-111 mmol/L Carbon Dioxide Level 25 21-32 mmol/L Blood Urea Nitrogen 63 H 7-18 mg/dL Creatinine 2.0 H 0.5-1.3 mg/dL Glomerular Filtration Rate Calc 40 >90 mL/min Random Glucose 154 #H 70-105 mg/dL Total Calcium 8.4 L 8.5-10.1 mg/dL Phosphorus Level 3.7 2.5-4.9 mg/dL Magnesium Level 1.70 L 1.80-2.40 mg/dL Total Bilirubin 0.2 0.2-1.0 mg/dL Aspartate Amino Transf (AST/SGOT) 16 10-37 U/L Alanine Aminotransferase (ALT/SGPT) 16 12-78 U/L Alkaline Phosphatase 194 H 50-136 U/L Total Protein 7.0 6.0-8.3 g/dL Albumin 1.4 L 3.5-5.0 g/dL Ammonia < 10 L 11-32 umol/L Bedside Glucose Comment Notified Nurse DIAGNOSTICS / RADIOLOGY RESULTS: [ ] PLAN decrease Dilaudid to q 8 prn . avoid if pain may be controlled with non opioid. NEURO: Minimize central acting medications as possible. Fall Precautions. Well lighted room through the day and minimize interruptions through the night to prevent acute delirium. PULMONARY: Supplemental 02 as needed Titrate Fio2 to keep Spo2 > or = 90% DuoNebs and CPT as needed IS hourly while awake for pulmonary hygiene Out of bed to chair as tolerated VAP Bundle ABG CARDIOVASCULAR: Follow hemodynamics. Titrate vasopressor to keep MAP >65 or systolic blood pressure >95mmHg DRIPS: bicarb gtt at 50 ml/HR LINES: PIV GI & NUTRITION: Continue nutritional support Aspirations precautions Prokinetic agents and laxatives as needed KIDNEYS & ELECTROLYTES: Strict monitoring of intake and output Daily weights Avoid nephrotoxic agents Monitor electrolytes and replace as needed Goal urine output of 30mL/hr or 0.5mL/kg/hr ENDOCRINE: Maintain blood glucose between 100-180 at all times. Insulin sliding scale for blood glucose management INFECTIOUS DISEASE: Trend temperature. Rivero-culture if febrile. Micro: [ ] urine yeast species 12/15/24- Blood cultures no growth Antibiotics: Zyvox and meropenem HEMATOLOGY & COAGULATION: Monitor H&H. Keep Hgb > 7 Transfuse 1 unit of PRBC for Hgb < 7 Transfuse 1 pack of platelets of platelets < 20, 000 Watch for any signs and symptoms of bleeding SKIN: Pressure ulcer prevention per facility protocol Rehab: PT/OT Prophylaxis: GI: Protonix DVT: Heparin Code Status: Full Resuscitation Disposition: ICU Other: Total patient care time exceeds 35 minutes excluding all procedures. Case was discussed and seen with my supervising physician. The above plan was formulated and agreed upon. VEE GARCIA Dec 18, 2024 20:05
--- NOTE | 2024-12-18 20:23 | PN ---
Endocrinology DOS: 12/18/24 subjective: hyperglycemia is improving now s/p surgery for deep perineal abscess. Home diabetic regimen: lantus 50 units daily, lispro insulin 25 units tid before meals, janumet mg bid Hba1c 14% REVIEW OF SYSTEMS CONSTITUTIONAL: fevers, chills and malaise NEUROLOGICAL: Denies headache, amaurosis fugax, motor weakness, sensory deficit, vertigo/spinning sensation, gait abnormalities, or tremors. ENT: No hearing loss, otalgia, otorrhea, rhinitis, rhinorrhea, hoarseness, or sore throat. CARDIOVASCULAR: Denies any exertional angina, dyspnea on exertion, orthopnea, paroxysmal nocturnal dyspnea, palpitations, life-threatening arrhythmias, claudication. PULMONARY: Denies any shortness of breath, cough, phlegm/sputum, hemoptysis, pleuritic chest pain. SLEEP: Denies morning headaches, daytime somnolence or napping. Denies difficulty falling asleep, staying asleep, waking from sleep. Denies knowledge of snoring. GASTROINTESTINAL: Denies any type of dysphagia to either liquids or solids. Denies nausea, vomiting, pyrosis, early satiety, abdominal pain, diarrhea, constipation, or changes in stool consistency or caliber. Denies coffee-ground emesis, hematemesis, hematochezia, or melanotic stools. GENITOURINARY: redness, swelling and pain to the right side of the scrotum ENDOCRINOLOGIC: poorly controlled DM II with hyperglycemia HEMATOLOGIC: Denies thrombophilia/previous clots, or coagulopathy/bleeding disorders. ONCOLOGIC: Denies personal history of malignancy. DERMATOLOGIC: redness and swelling to the right richie-scrotum PSYCHIATRIC: Denies any suicidal or homicidal ideation. Denies hallucinations. 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 Choudhury on 07/2024 PAST SOCIAL HISTORY: [Patient lives with his . Patient denies alcohol tobacco and recreational drug use . Patient states he used to smoke cigarette for 17 years two packs per day and quit two years ago] Allergies: Morphine causes headache Home medications: patient reports being on [id number] mg daily, [id number] mg daily, Lantus 50 units daily, insulin lispro,5 units b.i.d. p.c., losartan 50 mg daily, Colace daily, Janumet twice daily, Flomax 0.4 mg daily, clotrimazole cream twice daily, ferrous [id number] mg daily, Lipitor 40 mg daily Coded Allergies: morphine (Unverified Allergy, Intermediate, HALLUCINATIONS, 02/13/23) DIAGNOSTICS / RADIOLOGY: SERVICE 1040 REASON: urinary retention, testicular swelling wo per provider ORDERING PHYSICIAN: NYLA MORALES PROCEDURE: ABD PEL WO - CT ABDOMEN/PELVIS W/O CONTRAST EXAM: CT Abdomen and Pelvis Without IV contrast CLINICAL HISTORY: urinary retention, testicular swelling wo per provider TECHNIQUE: Axial computed tomography images of the abdomen and pelvis without intravenous contrast. CONTRAST: No IV contrast. COMPARISON: [facility] dated 02/08/23 FINDINGS: LUNG BASES: There are atelectatic bands within the bilateral lower lobes. LIVER: Unremarkable. GALLBLADDER AND BILE DUCTS: Post cholecystectomy status with surgical clips in situ. PANCREAS: Unremarkable. SPLEEN: Unremarkable. ADRENAL GLANDS: Unremarkable. KIDNEYS, URETERS, AND BLADDER: There is marked concentric bladder wall thickening, more pronounced posteriorly, with perivesicular fat stranding likely reflecting cystitis. There is reflux within the bilateral ureters resulting in severe bilateral hydronephrosis and also bilateral perinephric fat stranding reflecting pyelonephritis. There is no radiopaque calculus appreciated. STOMACH AND BOWEL: Unremarkable appearance of the stomach and bowel. No evidence of bowel obstruction. No evidence suggesting enteritis or colitis. APPENDIX: No evidence of acute appendicitis on CT examination. PERITONEUM: Small 7 mm fat-containing umbilical hernia. LYMPH NODES: No lymphadenopathy is evident. REPRODUCTIVE: A well-defined hypodense collection along the right penoscrotal region, measuring 6 x 5.1 cm, concerning for abscess. VASCULATURE: Atherosclerotic changes of the abdominal aorta. BONES: No aggressive appearing osseous lesion. No acute osseous pathology evident. IMPRESSION: 1. Severe bilateral hydronephrosis with pyelonephritis and perinephric fat stranding. 2. Marked bladder wall thickening with perivesicular fat stranding, compatible with cystitis. 3. 6 x 5.1 cm right penoscrotal hypodense collection, concerning for abscess. /[facility] DICTATED BY: ALICE LEARY Jr., MD DATE: 12/15/24 1459 ELECTRONICALLY SIGNED BY: ALICE LEARY Jr., MD DATE: 12/15/24 1459 ELECTRONICALLY SIGNED BY: DATE: EXAM: US Scrotum. CLINICAL HISTORY: TESTICULAR PAIN/SWELLING TECHNIQUE: Real-time ultrasound of the scrotum with color Doppler and image documentation. COMPARISON: Study dated 07/29. FINDINGS: RIGHT TESTICLE: Normal in size (3.3 cm x 1.5 cm x 2.4 cm) and echogenicity, no abnormal mass. Mildly reduced Doppler flow. LEFT TESTICLE: Normal in size (3.6 cm x 1.4 cm x 2.1 cm) and echogenicity, no abnormal mass. Normal Doppler flow. EPIDIDYMIDES: Within normal limits in size and vascularity. A 3 x 3 x 3 mm cyst along the head of the right epididymis. SCROTUM: There is significant improvement of previously documented abscess measuring 2.5 x 2.2 cm along the right scrotal wall (6 mm). No hydrocele, varicocele seen. IMPRESSION: 1. Scrotal wall abscess along the right side, measuring 2.5 x 2.2 cm, showing significant improvement/reduction in size. 2. Mildly reduced blood flow to the right testicle. Clinical correlation is advised for possible intermittent right testicular torsion. /[facility] DICTATED BY: ALICE LEARY Jr., MD DATE: 12/15/24 1324 ELECTRONICALLY SIGNED BY: ALICE LEARY Jr., MD DATE: 12/15/24 1324 ASSESSMENT: uncontrolled DM-2 and hyperglycemia insulin adjusted and glucose are improvingl. now s/p surgery for deep perineal abscess. Home diabetic regimen: lantus 50 units daily, lispro insulin 25 units tid before meals, janumet mg bid Hba1c 14% Sepsis secondary to complicated urinary tract infection and scrotal cellulitis with abscess, POA s/p surgery Progressive scrotal cellulitis with developing right hemiscrotal abscess, POA Severe complicated urinary tract infection, POA Urinary retention status post Thomas catheter placement, POA Bilateral hydronephrosis, POA Acute kidney injury with underlying history of chronic kidney disease, POA History of Farxiga use as outpatient, POA but off due to hx of perineal abscess Hypertension, POA History of dual antiplatelet therapy with aspirin and Plavix as outpatient, POA History of coronary artery disease with prior history of coronary intervention and stenting, POA History of peripheral arterial disease with history of lower extremity angioplasty and stenting, POA History of TIA, POA Hypertension, POA Hyperlipidemia, POA Debility, POA Right eye blindness, POA Decreased vision of left eye, POA History of iron deficiency anemia, POA History of hospitalization in [facility] for right epididymo-orchitis with abscess requiring surgical drainage,07/2024, POA PLAN: continue Lantus 50 units daily and adjust for fasting glucose. continue Regular insulin 15 units daily and adjust for post-prandial glucose. Continue medium dose sliding scale insulin. Monitor glucose q x 6 hourly. Continue carb consistent diet. Keep glucose less than 180 mg/dl. Vitals/Labs Vital Signs Date Time Temp Pulse Resp B/P (MAP) Pulse Ox O2 Delivery O2 Flow Rate FiO2 12/18/24 16:00 98.1 12/18/24 15:42 75 20 146/87 95 Room Air 12/18/24 12:00 21 12/18/24 08:00 0 Laboratory Tests 12/18/24 04:15 Medications Current Medications Acetaminophen 1,000 mg ONCE ONCE PO Last administered on 12/15/24at 11:13; Start 12/15/24 at 11:00; Stop 12/15/24 at 11:01; Status DC Sodium Chloride 1,000 ml @ 0 mls/hr ONCE ONCE IV Last administered on 12/15/24at 11:33; Start 12/15/24 at 11:00; Stop 12/15/24 at 11:01; Status DC Vancomycin HCl 1 each AD IV; Start 12/15/24 at 11:00; Stop 12/15/24 at 23:52; Status DC Cefepime HCl 1 gm ONCE ONCE IVPB Last administered on 12/15/24at 11:37; Start 12/15/24 at 11:00; Stop 12/15/24 at 11:01; Status DC Vancomycin HCl 250 ml @ 125 mls/hr ONCE ONCE IV Last administered on 12/15/24at 11:51; Start 12/15/24 at 11:00; Stop 12/15/24 at 12:59; Status DC Insulin Human Regular 10 unit ONCE ONCE IV Last administered on 12/15/24at 11:48; Start 12/15/24 at 11:30; Stop 12/15/24 at 11:31; Status DC Vancomycin HCl 250 ml @ 125 mls/hr Q48H IV; Start 12/17/24 at 11:00; Stop 12/15/24 at 13:19; Status DC Insulin Human Regular INSULIN SLIDING SCAL... ACHS SQ Last administered on 12/15/24at 21:03; Start 12/15/24 at 16:30; Stop 12/16/24 at 06:19; Status DC Dextrose 50 ml AD PRN IV; Start 12/15/24 at 13:30; Stop 01/14/25 at 13:29 Glucagon 1 mg AD PRN IM; Start 12/15/24 at 13:30; Stop 01/14/25 at 13:29 Pharmacy Profile Note 1 each ONCE MISC; Start 12/15/24 at 13:30; Stop 12/15/24 at 14:18; Status DC Atorvastatin Calcium 40 mg HS PO Last administered on 12/17/24at 20:09; Start 12/15/24 at 21:00; Stop 01/14/25 at 20:59 Tamsulosin HCl 0.4 mg DAILY PO Last administered on 12/18/24at 08:22; Start 12/16/24 at 09:00; Stop 01/15/25 at 08:59 Ferrous Sulfate 325 mg DAILY PO Last administered on 12/18/24at 08:24; Start 12/16/24 at 09:00; Stop 01/15/25 at 08:59 Home Med (Sennosides/ Docusate Sodium (Colace 2-i... DAILY PO; Start 12/16/24 at 09:00; Stop 01/15/25 at 08:59 Sodium Chloride 1,000 ml @ 75 mls/hr [id number] IV Last administered on 12/17/24at 01:40; Start 12/15/24 at 13:30; Stop 12/17/24 at 10:49; Status DC Hydromorphone HCl 0.2 mg Q6H PRN IVP Last administered on 12/17/24at 04:34; Start 12/15/24 at 13:30; Stop 12/18/24 at 09:00; Status DC Famotidine 20 mg DAILY IV Last administered on 12/17/24at 08:53; Start 12/16/24 at 09:00; Stop 12/17/24 at 10:49; Status DC Sodium Chloride 500 ml @ 0 mls/hr ONCE ONCE IV Last administered on 12/15/24at 15:13; Start 12/15/24 at 14:30; Stop 12/15/24 at 14:31; Status DC Hydralazine HCl 5 mg Q6H PRN IV; Start 12/15/24 at 14:30; Stop 01/14/25 at 14:29 Meropenem 1 gm Q12H IVPB Last administered on 12/17/24at 17:11; Start 12/15/24 at 16:00; Stop 12/17/24 at 19:54; Status DC Linezolid 300 ml @ 150 mls/hr Q12H IV Last administered on 12/17/24at 08:53; Start 12/15/24 at 21:00; Stop 12/17/24 at 19:54; Status DC Vitamin B Complex/ Vit C/Folic Acid 1 cap DAILY PO Last administered on 12/18/24at 08:22; Start 12/16/24 at 09:00; Stop 01/15/25 at 08:59 Insulin Glargine 25 units HS SQ; Start 12/15/24 at 21:00; Stop 12/15/24 at 18:52; Status DC Insulin Glargine 20 units HS SQ Last administered on 12/15/24at 21:05; Start 12/15/24 at 21:00; Stop 12/16/24 at 06:19; Status DC Insulin Glargine 20 units DAILY SQ; Start 12/16/24 at 09:00; Stop 12/17/24 at 07:32; Status DC Insulin Human Regular 8 unit TIDAC SQ Last administered on 12/17/24at 06:59; Start 12/16/24 at 07:30; Stop 12/17/24 at 07:32; Status DC Insulin Human Regular INSULIN SLIDING SCAL... ACHS SQ Last administered on 12/18/24at 12:01; Start 12/16/24 at 07:30; Stop 01/15/25 at 07:29 Sodium Bicarbonate 650 mg QID PO Last administered on 12/18/24at 16:01; Start 12/16/24 at 13:00; Stop 01/15/25 at 12:59 Sodium Bicarbonate 50 meq ONCE ONCE IV Last administered on 12/16/24at 12:34; Start 12/16/24 at 12:00; Stop 12/16/24 at 12:05; Status DC Dexamethasone Sodium Phosphate 4 mg STK-MED ONCE .ROUTE; Start 12/16/24 at 15:54; Stop 12/16/24 at 16:00; Status DC Lidocaine HCl 5 ml STK-MED ONCE .ROUTE; Start 12/16/24 at 15:54; Stop 12/16/24 at 16:00; Status DC Midazolam HCl 2 mg STK-MED ONCE .ROUTE; Start 12/16/24 at 15:55; Stop 12/16/24 at 16:00; Status DC Propofol 200 mg STK-MED ONCE IV; Start 12/16/24 at 15:55; Stop 12/16/24 at 16:00; Status DC Succinylcholine Chloride 200 mg STK-MED ONCE .ROUTE; Start 12/16/24 at 15:55; Stop 12/16/24 at 16:00; Status DC Ondansetron HCl 4 mg STK-MED ONCE .ROUTE; Start 12/16/24 at 15:55; Stop 12/16/24 at 16:00; Status DC Rocuronium [place] 50 mg STK-MED ONCE .ROUTE; Start 12/16/24 at 15:55; Stop 12/16/24 at 16:00; Status DC Fentanyl Citrate 100 mcg STK-MED ONCE .ROUTE; Start 12/16/24 at 15:55; Stop 12/16/24 at 16:00; Status DC Insulin Glargine 50 units DAILY SQ Last administered on 12/18/24at 08:18; Start 12/17/24 at 09:00; Stop 01/16/25 at 08:59 Insulin Human Regular 15 unit TIDAC SQ Last administered on 12/18/24at 16:05; Start 12/17/24 at 07:30; Stop 01/16/25 at 07:29 Naloxone HCl 2 mg ONCE IV; Start 12/17/24 at 11:00; Stop 12/17/24 at 10:36; Status DC Naloxone HCl 2 mg ONCE ONCE IV; Start 12/17/24 at 11:00; Stop 12/17/24 at 11:01; Status DC Heparin Sodium (Porcine) 5,000 unit BID SQ Last administered on 12/18/24at 08:19; Start 12/17/24 at 11:00; Stop 01/16/25 at 10:59 Pantoprazole Sodium 40 mg DAILY IVP Last administered on 12/18/24at 08:22; Start 12/18/24 at 09:00; Stop 01/17/25 at 08:59 Sodium Bicarbonate 150 meq/Dextrose 1,150 ml @ 50 mls/hr Q23H IVP Last administered on 12/18/24at 08:25; Start 12/17/24 at 11:00; Stop 12/18/24 at 11:36; Status DC Aspirin 81 mg DAILY PO Last administered on 12/18/24at 08:24; Start 12/18/24 at 09:00; Stop 01/17/25 at 08:59 Acetaminophen 1,000 mg ONCE IVPB Last administered on 12/17/24at 17:11; Start 12/17/24 at 17:00; Stop 12/18/24 at 18:10; Status DC Linezolid 300 ml @ 150 mls/hr Q12H IV Last administered on 12/18/24at 08:22; Start 12/17/24 at 21:00; Stop 12/19/24 at 20:59 Meropenem 1 gm Q12H IVPB Last administered on 12/18/24at 16:01; Start 12/18/24 at 04:00; Stop 12/20/24 at 23:00 Magnesium Sulfate 50 ml @ 0 mls/hr PROTOCOL PRN IV Last administered on 12/18/24at 10:42; Start 12/18/24 at 09:30; Stop 01/17/25 at 09:29 CINDY HALE MD Dec 18, 2024 20:23
--- NOTE | 2024-12-18 21:43 | PN ---
SUBJECTIVE: The patient is critically ill initially with acute renal failure. Due to worse sepsis, the patient has milder nephrosis detected. The patient also has scrotal wall abscess, for which I and D has been done. The patient is on broad-spectrum antibiotic. Creatinine is elevated. All the other underlying diabetic nephropathy, hypertension, peripheral vascular disease, and anemia are present. REVIEW OF SYSTEMS: CONSTITUTIONAL: No fevers, chills, or rigors. HEENT: With no headache, oral ulcers, sore throat, or difficulty swallowing. RESPIRATORY: With no cough, expectoration, hemoptysis, or pleuritic pain. CARDIOVASCULAR: No orthopnea or PND. GASTROINTESTINAL: Negative for nausea, vomiting, or diarrhea reported. GENITOURINARY: Negative for dysuria or hematuria. DERMATOLOGICAL: No rashes or pruritus. NEUROLOGIC: No seizure or syncope. ENDOCRINE: No polyuria, polydipsia, or polyphagia. PHYSICAL EXAMINATION: GENERAL: Pale, sick looking gentleman in the ICU. VITAL SIGNS: Blood pressure is 139/81, pulse 82, respiratory rate is 24, afebrile. HEENT: Head is atraumatic, normocephalic. Pupils are round and reactive. Sclerae are anicteric. Conjunctivae not pale. Oral mucosa is not dry. NECK: Supple with no masses or bruits. Thyroid is palpable. CHEST: Shows equal thoracic percussion note being resonant in all areas. CARDIAC: Regular rhythm. No rub. No S3 or S4. No parasternal heaves. ABDOMEN: With no guarding or tenderness. Bowel sounds present. No free fluid. EXTREMITIES: No edema. No cyanosis or clubbing. BACK: No tenderness, no back deformities. LABORATORY DATA: Labs have been reviewed. Low hemoglobin of 10.5. White cell count elevated. Creatinine is 2 and BUN of 62. Old records reviewed. Low sodium has been present. Cultures are reviewed. IMAGING STUDIES: Personally reviewed. Neck MRI has been done. The patient has a stroke code called in yesterday. Brain MRI was unremarkable. No evidence of obstruction. Carotid ultrasound has been done. Echo also has been done with no acute finding. Ejection fraction is 40% and hypokinetic carrillo have been present. Old records have been reviewed. PROBLEMS: * Renal failure. * Anemia. * Stroke-like situation with which the patient underwent further workup in a patient with underlying diabetes, nephropathy, hypertension, and anemia. The patient is in the ICU, has undergone neurological workup. No evidence of acute stroke detected till now, but severe cardiomyopathy detected with wall motion abnormality. * Multiple other comorbidities. PLAN: At this time: * Followup on renal function. * Urinalysis. * Intake, output, and weight monitoring. * The patient is treated for scrotal cellulitis and UTI antibiotic. Continue to avoid nephrotoxic antibiotic. The patient has a recent excisional debridement of the necrotic area. Intake, output, weight, and overall status will be monitored. Blood pressure will be monitored. Hypertension and hyperlipidemia are present. We will be following up on all these issues. Overall condition is critical and guarded. IV Dilaudid 0.5 mg q.6 for pain. Doses of medicines to be adjusted. We have discussed with the ICU physician. We have reviewed the old records and external records. Lab and x-ray were personally reviewed. Followup labs ordered. TID: [id number] RECEIPT: [id number]
[2024-12-19] VITALS (8 sets, daily range): BP systolic 116–154; BP diastolic 56–91; PULSE 71–84; RESP 16–22; TEMP 98–98.7
--- NOTE | 2024-12-19 01:21 | NUR ---
transfer PATIENT TRANSFERRED TO ROOM 227. REPORT GIVEN TO KATE CHAIREZ
[2024-12-19 04:13] LABS: IMMATURE GRANULOCYTE ABSOLUTE 0.06 K/uL (0-1); NUCLEATED RED BLOOD CELLS 0.0 % (0.0-0.19); PLATELET COUNT (AUTO) 564 K/uL (130-400); RED BLOOD CELL COUNT(AUTO) 4.14 MIL/uL (4.50-6.20); RED CELL DISTRIBUTION WIDTH 13.9 % (11.0-15.5); WHITE BLOOD COUNT (AUTO) 11.3 K/uL (4.8-10.8)
[2024-12-19 04:35] LABS: ASPARTATE AMINOTRANSFERASE 17.0 U/L (10-37); CREATININE 1.7 mg/dL (0.5-1.3); GLOMERULAR FILTR. RATE CALC 49.0 mL/min (>90); GLUCOSE,RANDOM 212.0 mg/dL (70-105); PHOSPHORUS 3.3 mg/dL (2.5-4.9); SODIUM SERUM 132.0 mmol/L (136-145); TOTAL PROTEIN, SERUM 6.9 g/dL (6.0-8.3); UREA NITROGEN, BLOOD 55.0 mg/dL (7-18)
--- NOTE | 2024-12-19 11:53 | PN ---
[facility] PROGRESS NOTE Date of Service: Dec 19, 2024 Time of Service: 11:49 SUBJECTIVE: 49-year-old male with history of poorly controlled type 2 diabetes mellitus, hypertension, hyperlipidemia, GERD, peripheral arterial disease, history of coronary artery disease with prior history of coronary stenting, peripheral arterial disease with prior history of angioplasty and stenting, morbid obesity, history of scrotal cellulitis with abscess requiring hospitalization in [facility] on 07/2024. Patient presented to the ER for further evaluation of progressive pain, swelling to the right side of the scrotum ongoing for the past three days. Pain is moderate in intensity involving the right hemiscrotum. Patient reported having subjective fevers, chills as well feels. Reported having dysuria and suprapubic discomfort as well. Patient reported that he was previously hospitalized in [facility] on 07/2024 where he was found to have right epididymo-orchitis. Patient during his hospitalization needed incision and drainage with debridement of right perineal and Ischiorectal abscess tracking into the scrotum by Dr. Choudhury on 08/01/2024. During this hospita lization had urinary retention requiring Thomas catheter placement. Discharged to long-term acute care for further IV antibiotic therapy. Patient denies any active chest pain, nausea, vomiting, or significant abdominal pain. On presentation to the ER, patient was noted to be in urinary retention with Thomas catheter placement yielding about 400 mL of urine. Patient underwent testicular ultrasound which showed findings of right scrotal wall abscess and mildly reduced flow to the right testicle. Patient underwent CT abdomen pelvis without contrast which showed findings of severe bilateral hydronephrosis with pyelonephritis, cystitis, and 3.6 cm x 5.1 cm right penoscrotal hypodense collection concerning for abscess. Patient admitted for further treatment and management of sepsis with underlying UTI, scrotal wall cellulitis with abscess, acute kidney injury and severe hyperglycemia. Consultation with Urology requested. Patient started on broad-spectrum antibiotics. 12/16 patient remains admitted to the PCU, blood pressure 135/86, afebrile, saturating normal on room air, WBC 14.8, hemoglobin 10.3, hematocrit 32.5, platelet count of 424. Sodium 131, potassium 4.4, CO2 of 19, BUN of 79, creatinine 3.3, uric acid 10.6, phosphorus 5.0. Iron level at 15. Blood gas with an ABG showing a pH of 7.32, pCO2 38, bicarb 19.3. Blood cultures no growth after 24 hours. Urine culture [id number] CFU, identification and sensitivity in progress. Patient evaluated by urologist, they abscesses and spontaneously draining, but the patient is still going to need formal incision and drainage. Clinical exam did not reveal findings suggestive of torsion. There was scrotal wall thickening worse of the right side with cellulitis. Recommended IV antibiotics for now. I will request a stat ABG to assess metabolic status. Patient with low iron level, follow stool occult blood, if positive we will request GI consultation. Patient currently on ferrous sulfate 325 mg p.o. daily. Infectious Disease consultation requested, follow input and recommendation. Patient with creatinine of 3.3, nephrology input noted and appreciated. Patient is started on insulin glargine 20 units subcutaneously daily as well as insulin sliding scale, continue to follow endocrinology input and recommendation. Renal ultrasound will be ordered, discussed with the lathe setup operator, if hydronephrosis we will request Urology consult. Follow up PSA level. During my visit patient comfortably in bed, alert oriented x3, no acute events overnight, results of renal function discussed with the patient and the at bedside. 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 Blood pressure 161/79, heart rate of 67, saturating 99% 2 L nasal cannula. CBC with a hemoglobin 11.0, hematocrit 34.7, WBC 12.4, platelet count 497. Sodium 132, potassium 5.1, BUN of 67, creatinine 2.3, (improving compared to yesterday) random glucose 430, total calcium 8.8, magnesium 2.0. Ammonia level less than 10. ABG showing a pH of 7.32, bicarb of 18.4. Renal ultrasound showed urinary bladder wall thickening consult for cystitis, previously bilateral moderate hydroureteronephrosis not visualized. CT head without contrast no acute intracranial abnormality, stable encephalomalacia in the bilateral inferior cerebellar hemispheres suggesting sequela of prior insult, no significant interval change. Ultrasound carotids no hemodynamically significant stenosis bilateral carotid or vertebral arteries. Continue the patient on broad-spectrum IV antibiotics, follow results of intraoperative cultures, continue to follow ID input recommendation, follow urology input and recommendation. Neurology consultation requested, we will follow input and recommendation. Patient upgraded to the ICU, continue close monitoring of the patient's mental status. Follow critical care input and recommendations. Renal function slowly improving, continue to monitor in a.m., continue to assess metabolic status with daily ABG, patient is started on sodium bicarbonate drip. Continue long-acting insulin with glargine 50 units subcutaneously daily as well as insulin sliding scale. A.m. labs At the time of my visit, patient is comfortably in bed, alert and oriented x3, results of CT head discussed with the patient, all questions answered, he denies dizziness, no headache, no chest pain, shortness shortness for breath, no nausea, no vomiting. No weakness to both upper or lower extremities, able to move four extremities well. Able to show me all his teeth without deviation of the mouth. not present in the room at the time of my visit. 12/18 patient remains admitted to the ICU, hemodynamically stable, BP 133/50, afebrile, saturating normal on room air, during my visit the patient is alert oriented x3, denies dizziness, no headache, no chest pain, shortness shortness for breath, no nausea, no vomiting, no focal neurological deficit noted, no slurry speech, able to move both upper and lower extremity. Hemoglobin 10.5, hematocrit 32.2, WBC of 11.2. Results of culture from scrotal abscess positive for Streptococcus agalactiae group B, urine culture positive for yeast. Echocardiogram done, the apical anterior lateral, inferolateral carrillo are severely hypokinetic, the apical inferior wall is thin, scarring and akinetic, LVEF 40%, indeterminate diastolic dysfunction, trace mitral regurgitation, no pericardial effusion. Neck MRA no significant stenosis appreciated. Patient will be downgraded to the PCU, continue broad-spectrum antibiotics, continue to follow urology and ID input and recommendations. 12/19 patient remains admitted to the PCU, BP 151/82, afebrile, saturating normal on room air. WBC 11.3, hemoglobin 10.5, hematocrit 31.9, with a platelet count of 564. BUN 55, creatinine 1.7. Scrotal abscess culture positive for Irina albicans, Streptococcus agalactiae group B and is species. Discharge plan discussed with case management, who is making arrangements for the patient to be discharged to LTAC. Urology input noted and appreciated, patient is status post incision and drainage of tip. José abscess extending towards the rectal region, possibility of the rectal fistula needs to be ruled out. We will request surgical consultation. Continue wound care, continue broad-spectrum antibiotics, continue to follow ID input recommendation, continue hemodialysis per Nephrology recommendations. At the time of my visit the patient is comfortably in bed, alert oriented x3, no focal neurological deficit, plan is to downgraded the patient to the medical floor. REVIEW OF SYSTEMS CONSTITUTIONAL: fevers, chills and malaise NEUROLOGICAL: Denies headache, amaurosis fugax, motor weakness, sensory deficit, vertigo/spinning sensation, gait abnormalities, or tremors. ENT: No hearing loss, otalgia, otorrhea, rhinitis, rhinorrhea, hoarseness, or sore throat. CARDIOVASCULAR: Denies any exertional angina, dyspnea on exertion, orthopnea, paroxysmal nocturnal dyspnea, palpitations, life-threatening arrhythmias, claudication. PULMONARY: Denies any shortness of breath, cough, phlegm/sputum, hemoptysis, pleuritic chest pain. SLEEP: Denies morning headaches, daytime somnolence or napping. Denies difficulty falling asleep, staying asleep, waking from sleep. Denies knowledge of snoring. GASTROINTESTINAL: Denies any type of dysphagia to either liquids or solids. Denies nausea, vomiting, pyrosis, early satiety, abdominal pain, diarrhea, constipation, or changes in stool consistency or caliber. Denies coffee-ground emesis, hematemesis, hematochezia, or melanotic stools. GENITOURINARY: redness, swelling and pain to the right side of the scrotum ENDOCRINOLOGIC: poorly controlled DM II with hyperglycemia HEMATOLOGIC: Denies thrombophilia/previous clots, or coagulopathy/bleeding disorders. ONCOLOGIC: Denies personal history of malignancy. DERMATOLOGIC: redness and swelling to the right richie-scrotum PSYCHIATRIC: Denies any suicidal or homicidal ideation. Denies hallucinations. PHYSICAL EXAM GENERAL APPEARANCE: The patient is awake, alert, and oriented, in no acute cardiopulmonary distress. NEUROLOGICAL: Cranial nerves II-XII grossly intact. Motor is 5/5 in bilateral upper and lower extremities proximal to distal. No sensory deficits. HEENT: Face is symmetric. Pupils are equal and reactive. Extraocular movements are intact. NECK: Supple. No JVD. No thyromegaly. No submental, submandibular, pre- /postauricular, occipital or supraclavicular lymphadenopathy. CHEST: Normal chest expansion. No Telemetry. LUNGS: Absence of any rales, rhonchi or any wheezing. CARDIOVASCULAR: Regular. S1 and S2 normal. No appreciable rubs, murmurs or gallops. ABDOMEN: Soft, nontender, and nondistended. There is no rebound, voluntary guarding, or rigidity. : Thomas catheter noted draining cloudy urine, significant redness and swelling noted of the scrotum, mild tenderness to palpation EXTREMITIES: No significant swelling noted Vital Signs (last 8hr) Date Time Temp Pulse Resp B/P (MAP) Pulse Ox O2 Delivery O2 Flow Rate FiO2 12/19/24 08:00 98.8 72 20 151/82 96 Room Air 12/19/24 04:00 98.2 80 18 154/91 95 Room Air LABS: Laboratory: Test 12/19/24 11:27 12/19/24 04:07 12/18/24 13:40 Range/Units Whole Blood Glucose 234 H 70-110 MG/DL White Blood Count 11.3 H 4.8-10.8 K/uL Red Blood Count 4.14 L 4.50-6.20 MIL/uL Hemoglobin 10.5 L 14.0-18.0 g/dL Hematocrit 31.9 L 42-54 % Mean Corpuscular Volume 77.1 L 79-99 fL Mean Corpuscular Hemoglobin 25.4 L 27.0-33.0 pg Mean Corpuscular Hemoglobin Concent 32.9 32.0-36.0 g/dL Red Cell Distribution Width 13.9 11.0-15.5 % Platelet Count 564 H 130-400 K/uL Mean Platelet Volume 9.4 7.5-10.5 fL Immature Granulocyte % (Auto) 0.5 0-1 % Neutrophils (%) (Auto) 61.2 40.0-77.0 % Lymphocytes (%) (Auto) 27.3 21.0-51.0 % Monocytes (%) (Auto) 9.0 3.0-13.0 % Eosinophils (%) (Auto) 1.6 0.0-8.0 % Basophils (%) (Auto) 0.4 0.0-5.0 % Neutrophils # (Auto) 6.9 1.8-7.7 K/uL Lymphocytes # (Auto) 3.1 1.0-4.8 K/uL Monocytes # (Auto) 1.0 0.1-1.0 K/uL Eosinophils # (Auto) 0.18 0.00-0.70 K/uL Basophils # (Auto) 0.04 0.00-0.20 K/uL Absolute Immature Granulocyte (auto 0.06 0-1 K/uL Nucleated Red Blood Cells 0.0 0.0-0.19 % Sodium Level 132 L 136-145 mmol/L Potassium Level 4.0 3.5-5.1 mmol/L Chloride Level 101 101-111 mmol/L Carbon Dioxide Level 26 21-32 mmol/L Blood Urea Nitrogen 55 H 7-18 mg/dL Creatinine 1.7 H 0.5-1.3 mg/dL Glomerular Filtration Rate Calc 49 >90 mL/min Random Glucose 212 H 70-105 mg/dL Total Calcium 8.4 L 8.5-10.1 mg/dL Phosphorus Level 3.3 2.5-4.9 mg/dL Magnesium Level 1.90 1.80-2.40 mg/dL Total Bilirubin 0.2 0.2-1.0 mg/dL Aspartate Amino Transf (AST/SGOT) 17 10-37 U/L Alanine Aminotransferase (ALT/SGPT) 16 12-78 U/L Alkaline Phosphatase 197 H 50-136 U/L Total Protein 6.9 6.0-8.3 g/dL Albumin 1.4 L 3.5-5.0 g/dL Procalcitonin 0.08 0.05-0.5 ng/mL Urine Color LIGHT-ORANGE YELLOW Urine Appearance TURBID CLEAR Urine pH 6.0 5.0-8.0 Urine Specific [place] 1.011 1.001-1.031 Urine Protein 100 H NEGATIVE mg/dL Urine Glucose (UA) NEGATIVE NEGATIVE mg/dL Urine Ketones NEGATIVE NEGATIVE mg/dL Urine Occult Blood MODERATE H NEGATIVE Urine Nitrate NEGATIVE NEGATIVE Urine Bilirubin NEGATIVE NEGATIVE mg/dL Urine Urobilinogen 0.2 0.2-1.0 mg/dL Urine Leukocyte Esterase 500 H NEGATIVE Ehlena/uL Urine RBC None 0-1 /HPF Urine WBC 0-1 0-1 /HPF Urine Bacteria None None Seen /HPF Current Medications Medications (Trade) Dose Ordered Sig/Gaby Route PRN Reason Start Time Stop Time Status Last Admin Dose Admin Acetaminophen (acetaMINOPHEN) 1,000 mg ONCE IVPB 12/17/24 17:00 12/18/24 18:10 DC 12/17/24 17:11 1,000 MG Aspirin (Aspirin 81mg Ec Tab) 81 mg DAILY PO 12/18/24 09:00 01/17/25 08:59 12/19/24 10:01 81 MG Atorvastatin Calcium (LIPItor 40MG) 40 mg HS PO 12/15/24 21:00 01/14/25 20:59 12/18/24 20:44 40 MG Dextrose (D50w) 50 ml AD PRN IV HYPOGLYCEMIA PROTOCOL 12/15/24 13:30 01/14/25 13:29 Famotidine (Pepcid 20mg Vial) 20 mg DAILY IV 12/16/24 09:00 12/17/24 10:49 DC 12/17/24 08:53 20 MG Ferrous Sulfate (Ferrous Sulfate) 325 mg DAILY PO 12/16/24 09:00 01/15/25 08:59 12/19/24 10:01 325 MG Glucagon (Glucagon 1mg Kit) 1 mg AD PRN IM HYPOGLYCEMIA PROTOCOL 12/15/24 13:30 01/14/25 13:29 Heparin Sodium (Porcine) (HEParin 5,000 UNIT VIAL) 5,000 unit BID SQ 12/17/24 11:00 01/16/25 10:59 12/19/24 10:35 5,000 UNIT Home Med (Home Medication) (Sennosides/ Docusate Sodium (Colace 2-i... DAILY PO 12/16/24 09:00 01/15/25 08:59 Hydralazine HCl (APRESOLine 20MG INJ) 5 mg Q6H PRN IV ADMINISTER FOR SBP > 160 12/15/24 14:30 01/14/25 14:29 Hydromorphone HCl (DiLAUDid 0.5MG INJ) 0.2 mg Q6H PRN IVP SEVERE PAIN (7-10) 12/15/24 13:30 12/18/24 09:00 DC 12/17/24 04:34 0.2 MG Insulin Glargine (LANtus 100 UNITS/ML 10 ML VIAL) 20 units DAILY SQ 12/16/24 09:00 12/17/24 07:32 DC Insulin Glargine (LANtus 100 UNITS/ML 10 ML VIAL) 20 units HS SQ 12/15/24 21:00 12/16/24 06:19 DC 12/15/24 21:05 20 UNITS Insulin Glargine (LANtus 100 UNITS/ML 10 ML VIAL) 25 units HS SQ 12/15/24 21:00 12/15/24 18:52 DC Insulin Glargine (LANtus 100 UNITS/ML 10 ML VIAL) 50 units DAILY SQ 12/17/24 09:00 01/16/25 08:59 12/19/24 10:40 50 UNITS Insulin Human Regular (humuLIN R 100 UNIT/ML 3ML) 8 unit TIDAC SQ 12/16/24 07:30 12/17/24 07:32 DC 12/17/24 06:59 8 UNIT Insulin Human Regular (humuLIN R 100 UNIT/ML 3ML) 15 unit TIDAC SQ 12/17/24 07:30 01/16/25 07:29 12/19/24 11:35 15 UNIT Insulin Human Regular (humuLIN R 100 UNIT/ML 3ML) INSULIN SLIDING SCAL... ACHS SQ 12/15/24 16:30 12/16/24 06:19 DC 12/15/24 21:03 5 UNIT Insulin Human Regular (humuLIN R 100 UNIT/ML 3ML) INSULIN SLIDING SCAL... ACHS SQ 12/16/24 07:30 01/15/25 07:29 12/19/24 11:33 6 UNIT Linezolid 300 ml @ 150 mls/hr Q12H IV 12/15/24 21:00 12/17/24 19:54 DC 12/17/24 08:53 150 MLS/HR Linezolid 300 ml @ 150 mls/hr Q12H IV 12/17/24 21:00 12/19/24 20:59 12/19/24 10:01 150 MLS/HR Magnesium Sulfate 50 ml @ 0 mls/hr PROTOCOL PRN IV MAGNESIUM PROTOCOL 12/18/24 09:30 01/17/25 09:29 12/18/24 10:42 25 MLS/HR Meropenem (Merrem 1gm) 1 gm Q12H IVPB 12/15/24 16:00 12/17/24 19:54 DC 12/17/24 17:11 1 GM Meropenem (Merrem 1gm) 1 gm Q12H IVPB 12/18/24 04:00 12/20/24 23:00 12/19/24 04:44 1 GM Naloxone HCl (NARcan HCL 1 MG/ ML 2ML SYG) 2 mg ONCE IV 12/17/24 11:00 12/17/24 10:36 DC Pantoprazole Sodium (PROTonix 40MG INJ) 40 mg DAILY IVP 12/18/24 09:00 01/17/25 08:59 12/19/24 10:01 40 MG Pharmacy Profile Note (Pharmacy Communication) 1 each ONCE MISC 12/15/24 13:30 12/15/24 14:18 DC Sodium Bicarbonate 150 meq/Dextrose 1,150 ml @ 50 mls/hr Q23H IVP 12/17/24 11:00 12/18/24 11:36 DC 12/18/24 08:25 50 MLS/HR Sodium Bicarbonate (Sodium Bicarbonate) 650 mg QID PO 12/16/24 13:00 01/15/25 12:59 12/19/24 11:37 650 MG Sodium Chloride 1,000 ml @ 75 mls/hr [id number] IV 12/15/24 13:30 12/17/24 10:49 DC 12/17/24 01:40 75 MLS/HR Tamsulosin HCl (FloMAX) 0.4 mg DAILY PO 12/16/24 09:00 01/15/25 08:59 12/19/24 10:01 0.4 MG Vancomycin HCl 250 ml @ 125 mls/hr Q48H IV 12/17/24 11:00 12/15/24 13:19 DC Vancomycin HCl (Vancomycin Protocol) 1 each AD IV 12/15/24 11:00 12/15/24 23:52 DC Vitamin B Complex/ Vit C/Folic Acid (Nephrovite Tablet) 1 cap DAILY PO 12/16/24 09:00 01/15/25 08:59 12/19/24 10:01 1 CAP DIAGNOSTICS / RADIOLOGY: [ ] ASSESSMENT: Sepsis secondary to complicated urinary tract infection and scrotal cellulitis with abscess, POA Progressive scrotal cellulitis with developing right hemiscrotal abscess, POA status post excisional debridement of necrotic soft tissue from the perineum secondary to 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) Wound culture positive for Irina albicans, Streptococcus agalactiae group B and yeast species Severe complicated urinary tract infection, POA Urinary retention status post Thomas catheter placement, POA Bilateral hydronephrosis, POA Acute kidney injury with underlying history of chronic kidney disease, POA Severe nonketotic hyperglycemia with poorly controlled type 2 diabetes mellitus, POA History of Farxiga use as outpatient, POA Hypertension, POA History of dual antiplatelet therapy with aspirin and Plavix as outpatient, POA History of coronary artery disease with prior history of coronary intervention and stenting, POA History of peripheral arterial disease with history of lower extremity angioplasty and stenting, POA History of TIA, POA Hypertension, POA Hyperlipidemia, POA Debility, POA Right eye blindness, POA Decreased vision of left eye, POA History of iron deficiency anemia, POA History of hospitalization in [facility] for right epididymo-orchitis with abscess requiring surgical drainage,07/2024, POA PLAN: Discharge plan discussed with case management, who is making arrangements for the patient to be discharged to LTAC. Urology input noted and appreciated, patient is status post incision and drainage of tip. José abscess extending towards the rectal region, possibility of the rectal fistula needs to be ruled out. We will request surgical consultation. Continue wound care, continue broad-spectrum antibiotics, continue to follow ID input recommendation, continue hemodialysis per Nephrology recommendations. NEURO: Minimize central acting medications as possible. Fall Precautions. Well lighted room through the day and minimize interruptions through the night t o prevent acute delirium. PULMONARY: Supplemental 02 as needed BiPAP as necessary, for respiratory distress Titrate Fio2 to keep Spo2 > or = 90% DuoNebs and CPT as needed IS hourly while awake for pulmonary hygiene prn Out of bed to chair as tolerated Maintain aspiration precautions at all times CARDIOVASCULAR: Follow hemodynamics. Vital signs per facility protocol GI & NUTRITION: Continue nutritional support Aspirations precautions Prokinetic agents and laxatives as needed KIDNEYS & ELECTROLYTES: Strict monitoring of intake and output Daily weights Avoid nephrotoxic agents Monitor electrolytes and replace as needed Goal urine output of 30mL/hr or 0.5mL/kg/hr Medications to be dosed according to renal function. Avoid contrast if possible ENDOCRINE: Maintain blood glucose between 100-180 at all times. Insulin sliding scale for blood glucose management Hypoglycemia and hyperglycemia protocol in place INFECTIOUS DISEASE: Trend temperature, WBC and procalcitonin level Follow cultures, deescalate antibiotics as soon as possible. Panculture if new onset fever HEMATOLOGY & COAGULATION: Monitor H&H. Keep Hgb > 7 Transfuse 1 unit of PRBC for Hgb < 7 Transfuse 1 pack of platelets of platelets < 20, 000 Watch for any signs and symptoms of bleeding SKIN: Pressure ulcer prevention per facility protocol Specialty mattress as needed ORTHO/REHAB Continue PT/OT PRN: MEDICATIONS Tylenol 650 mg po every 4 hrs for fever zofran 4 mg IV every 6 hrs for n/v Hydralazine 5 mg IV every 4 hrs systolic pressure > 160 bowel regiment: lactulose 20 gm PO BID PRN constipation Supportive measures: Continue GI and DVT prophylaxis Disposition: Pending improvement in clinical condition All questions answered time spent: > 35 min JANET IVAN MD Dec 19, 2024 11:52
--- NOTE | 2024-12-19 14:20 | NUR ---
PATIENT ARRIVED ON UNIT. NO SIGNS OF OF DISTRESS NOTED. PATIENT HAS NO PAIN ON ARRIVAL. WILL CONTINUE TO MONITOR AND FOLLOW THROUGH WITH ORDERS.
--- NOTE | 2024-12-19 15:44 | PN ---
NEPHROLOGY PROGRESS NOTE Date/Time Patient Seen: Dec 19, 2024 SUBJECTIVE: This is a 49-year-old male with a past medical history of diabetes mellitus type 2, hypertension, peripheral arterial disease with left AKA, coronary artery disease, hyperlipidemia, GERD, PAD, and obesity Patient presented to the emergency room for fever and scrotum swelling. Thomas in place due to urinary retention Blood and urine cultures have been collected, pending results Continues on broad-spectrum antibiotics. We have consulted for renal failure. Renal function is improving Electrolytes are stable. UA positive for proteinuria. Hemoglobin noted CT of the abdomen showed severe bilateral hydronephrosis. Marked bladder wall thickening with perivesicular fat stranding Renal ultrasound showed Urinary bladder wall thickening of concern for cystitis. Recommend urine routine. Previously demonstrated bilateral moderate hydroureteronephrosis is not visualized. 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 Pending surgery recommendations regarding her possible rectal fistula Family at the bedside Prognosis remains guarded REVIEW OF SYSTEMS: GENERAL: Positive for fever and scrotum swelling. NEUROLOGIC: Negative for any blurry vision, blind spots, double vision, facial asymmetry, dysphagia, dysarthria, hemiparesis, hemisensory deficits, vertigo, ataxia. HEENT: Negative for any head trauma, neck trauma, neck stiffness, photophobia, phonophobia, sinusitis, rhinitis. CARDIAC: Negative for any chest pain, dyspnea on exertion, paroxysmal nocturnal dyspnea, peripheral edema. PULMONARY: Negative for any shortness of breath, wheezing, COPD, or TB exposure. GASTROINTESTINAL: Negative for any abdominal pain, nausea, vomiting, bright red blood per rectum, melena. GENITOURINARY: Negative for any dysuria, hematuria, incontinence. INTEGUMENTARY: Negative for any rashes, cuts, insect bites. RHEUMATOLOGIC: Negative for any joint pains, photosensitive rashes, history of vasculitis or kidney problems. HEMATOLOGIC: Negative for any abnormal bruising, frequent infections or bleeding. Vital Signs (last 8hr) Date Time Temp Pulse Resp B/P (MAP) Pulse Ox O2 Delivery O2 Flow Rate FiO2 12/19/24 12:00 98.6 73 20 147/79 97 Room Air 12/19/24 08:00 98.8 72 20 151/82 96 Room Air PHYSICAL EXAM: GENERAL: Alert and oriented x 3. No acute distress. Well-nourished. EYES: EOMI. Anicteric. HENT: Moist mucous membranes. No scleral icterus. No cervical lymphadenopathy. LUNGS: Clear to auscultation bilaterally. No accessory muscle use. CARDIOVASCULAR: Regular rate and rhythm. No murmur. No JVD. ABDOMEN: Soft, non-tender and non-distended. No palpable masses. EXTREMITIES: No edema. Non-tender. SKIN: No rashes or lesions. Warm. NEUROLOGIC: No focal neurological deficits. CN II-XII grossly intact, but not individually tested. PSYCHIATRIC: Cooperative. Appropriate mood and affect. Current Medications Medications (Trade) Dose Ordered Sig/Gaby Route Start Time Stop Time Status Last Admin Dose Admin Atorvastatin Calcium (LIPItor 40MG) 40 mg HS PO 12/15/24 21:00 01/14/25 20:59 12/15/24 21:05 40 MG Famotidine (Pepcid 20mg Vial) 20 mg DAILY IV 12/16/24 09:00 01/15/25 08:59 12/16/24 09:12 20 MG Ferrous Sulfate (Ferrous Sulfate) 325 mg DAILY PO 12/16/24 09:00 01/15/25 08:59 Home Med (Home Medication) (Sennosides/ Docusate Sodium (Colace 2-i... DAILY PO 12/16/24 09:00 01/15/25 08:59 Insulin Glargine (LANtus 100 UNITS/ML 10 ML VIAL) 20 units DAILY SQ 12/16/24 09:00 01/14/25 20:59 Insulin Glargine (LANtus 100 UNITS/ML 10 ML VIAL) 20 units HS SQ 12/15/24 21:00 12/16/24 06:19 DC 12/15/24 21:05 20 UNITS Insulin Glargine (LANtus 100 UNITS/ML 10 ML VIAL) 25 units HS SQ 12/15/24 21:00 12/15/24 18:52 DC Insulin Human Regular (humuLIN R 100 UNIT/ML 3ML) 8 unit TIDAC SQ 12/16/24 07:30 01/15/25 07:29 Insulin Human Regular (humuLIN R 100 UNIT/ML 3ML) INSULIN SLIDING SCAL... ACHS SQ 12/15/24 16:30 12/16/24 06:19 DC 12/15/24 21:03 5 UNIT Insulin Human Regular (humuLIN R 100 UNIT/ML 3ML) INSULIN SLIDING SCAL... ACHS SQ 12/16/24 07:30 01/15/25 07:29 Linezolid 300 ml @ 150 mls/hr Q12H IV 12/15/24 21:00 12/17/24 20:59 12/16/24 09:12 150 MLS/HR Meropenem (Merrem 1gm) 1 gm Q12H IVPB 12/15/24 16:00 12/17/24 23:00 12/16/24 06:02 1 GM Pharmacy Profile Note (Pharmacy Communication) 1 each ONCE MISC 12/15/24 13:30 12/15/24 14:18 DC Sodium Chloride 1,000 ml @ 75 mls/hr [id number] IV 12/15/24 13:30 01/14/25 13:29 12/16/24 02:42 75 MLS/HR Tamsulosin HCl (FloMAX) 0.4 mg DAILY PO 12/16/24 09:00 01/15/25 08:59 Vancomycin HCl 250 ml @ 125 mls/hr Q48H IV 12/17/24 11:00 12/15/24 13:19 DC Vancomycin HCl (Vancomycin Protocol) 1 each AD IV 12/15/24 11:00 12/15/24 23:52 DC Vitamin B Complex/ Vit C/Folic Acid (Nephrovite Tablet) 1 cap DAILY PO 12/16/24 09:00 01/15/25 08:59 LABORATORY: [ ] Hematology Labs: Test 12/19/24 04:07 Range/Units White Blood Count 11.3 H 4.8-10.8 K/uL Red Blood Count 4.14 L 4.50-6.20 MIL/uL Hemoglobin 10.5 L 14.0-18.0 g/dL Hematocrit 31.9 L 42-54 % Mean Corpuscular Volume 77.1 L 79-99 fL Mean Corpuscular Hemoglobin 25.4 L 27.0-33.0 pg Mean Corpuscular Hemoglobin Concent 32.9 32.0-36.0 g/dL Red Cell Distribution Width 13.9 11.0-15.5 % Platelet Count 564 H 130-400 K/uL Mean Platelet Volume 9.4 7.5-10.5 fL Immature Granulocyte % (Auto) 0.5 0-1 % Neutrophils (%) (Auto) 61.2 40.0-77.0 % Lymphocytes (%) (Auto) 27.3 21.0-51.0 % Monocytes (%) (Auto) 9.0 3.0-13.0 % Eosinophils (%) (Auto) 1.6 0.0-8.0 % Basophils (%) (Auto) 0.4 0.0-5.0 % Neutrophils # (Auto) 6.9 1.8-7.7 K/uL Lymphocytes # (Auto) 3.1 1.0-4.8 K/uL Monocytes # (Auto) 1.0 0.1-1.0 K/uL Eosinophils # (Auto) 0.18 0.00-0.70 K/uL Basophils # (Auto) 0.04 0.00-0.20 K/uL Absolute Immature Granulocyte (auto 0.06 0-1 K/uL Nucleated Red Blood Cells 0.0 0.0-0.19 % Chemistry Labs: Test 12/19/24 11:27 12/19/24 04:07 Range/Units Whole Blood Glucose 234 H 70-110 MG/DL Sodium Level 132 L 136-145 mmol/L Potassium Level 4.0 3.5-5.1 mmol/L Chloride Level 101 101-111 mmol/L Carbon Dioxide Level 26 21-32 mmol/L Blood Urea Nitrogen 55 H 7-18 mg/dL Creatinine 1.7 H 0.5-1.3 mg/dL Glomerular Filtration Rate Calc 49 >90 mL/min Random Glucose 212 H 70-105 mg/dL Total Calcium 8.4 L 8.5-10.1 mg/dL Phosphorus Level 3.3 2.5-4.9 mg/dL Magnesium Level 1.90 1.80-2.40 mg/dL Total Bilirubin 0.2 0.2-1.0 mg/dL Aspartate Amino Transf (AST/SGOT) 17 10-37 U/L Alanine Aminotransferase (ALT/SGPT) 16 12-78 U/L Alkaline Phosphatase 197 H 50-136 U/L Total Protein 6.9 6.0-8.3 g/dL Albumin 1.4 L 3.5-5.0 g/dL Procalcitonin 0.08 0.05-0.5 ng/mL DIAGNOSTICS / RADIOLOGY: [facility] [id number] [place] [address] IMAGING REPORT Signed PATIENT: ASHA SUERO MR#: [id number] : 1975 SEX: M AGE: 49 LOCATION: 2CH ORDER 1 [facility]US: [facility] REPORT#: [id number] SERVICE 6 REASON: R/O STROKE ORDERING PHYSICIAN: ZARI JORDAN CARDIO CLINICIAN PROCEDURE: MRA NECKWO - MR ANGIO NECK WO CON EXAM: MRA Neck without Intravenous Contrast. CLINICAL HISTORY: R/O STROKE TECHNIQUE: Magnetic resonance angiography images of the neck without intravenous contrast. Three-dimensional MIP reformations performed. COMPARISON: Ultrasound exam from December 17, 2024. FINDINGS: INTERNAL CAROTID ARTERIES: No significant stenosis based on NASCET criteria. COMMON CAROTID ARTERIES: No significant stenosis. No dissection. EXTERNAL CAROTID ARTERIES: No occlusion or dissection. VERTEBRAL ARTERIES: No significant stenosis. No dissection. BASILAR ARTERY: No significant stenosis. No dissection. SOFT TISSUES Unremarkable as visualized. IMPRESSION: No hemodynamically significant stenosis appreciated. /[place]cy DICTATED BY: ALICE LEARY Jr., MD DATE: 12/17/241653 ELECTRONICALLY SIGNED BY: ALICE LEARY Jr., MD DATE: 12/17/241653 PATIENT: ASHA SUERO MR#: [id number] : 1975 SEX: M AGE: 49 LOCATION: 2CH ORDER 1 STATUS: [facility] REPORT#: [id number] SERVICE 6 REASON: EVALUATE CARDIAC FUNCTION ORDERING PHYSICIAN: ZARI JORDAN CARDIO CLINICIAN PROCEDURE: ECHO CMP - ECHO 2-D COMPLETE APPROVED REPORT EXAM: Two-dimensional and M-mode echocardiogram with Doppler and color Doppler. INDICATION ICD: Evalute cardiac function 2D Dimensions RVDd 4.0 cm LVEF(%) 44.4 (>50%) LVED Vol(simp.) 176.0 mL IVSd 0.9 (0.7-1.1cm) FS(%) 22 % LVES Vol(simp.) 110.0 mL LVDd 5.4 (3.8-5.6cm) LA (2D) 2.1 (1.6-4.0cm) LVEF(%, simp.) 37 % PWd 1.0 (0.7-1.1cm) Ao Root(2D) 2.6 (2.0-3.7cm) LA ESV INDEX (BP) 37.59 mL/m2 LVDs 4.2 (2.5-4.0cm) LVOT diam 2.5 (1.8-2.4cm) IVC diam 2.0 cm Deformation Strain Apical 4 -9.4 % Apical 2 -13.7 % Apical 3 -10.7 % Global Strain -11.3 % M-Mode Dimensions EPSS 1.7 cm LA (MM) 2.9 (1.6-4.0cm) Ao Root(MM) 2.6 (2.0-3.7cm) Aortic Valve AoV Vmax 0.9 m/s Ao Peak GR 3.1 mmHg LVOT Vmax 0.8 m/s AoV VTI 0.2 m Ao Mean GR 1.8 mmHg LVOT VTI 0.17 m CULLEN (VMAX) 4.18 cm2 CULLEN (VTI) 4.2 cm2 Mitral Valve MV E Vmax 64.6 cm/s DECEL Time 195 ms MV A Vmax 66.0 cm/s P 1/2 T 87 ms E/A ratio 1.0 MVA (PHT) 2.5 cm2 TDI E/E' Medial 10.5 E/E' Lateral 5.6 Medial E' Peak V 6.14 cm/s Lateral E' Peak V 11.44 cm/s Pulmonary Valve PV Vmax 0.8 m/s PV VTI 0.20 m PV Mean GR 1.3 mmHg PV Peak GR 2.4 mmHg Tricuspid Valve RAP (EST) 8 mmHg RVSP 8.0 mmHg Left Ventricle Left ventricle is normal in size. The apical anterior lateral, inferolateral carrillo are severely hypokinetic. The apical inferior wall is thin, scarred and akinetic. The other carrillo are grossly normal. There is normal left ventricular wall thickness. Left ventricle systolic function is moderately depressed, estimated LVEF 40%. Indeterminate diastolic dysfunction. Right Ventricle The right ventricle is normal size. The right ventricular systolic function is normal. Atria The left atrium is mildly dilated, 38ml/m2. The right atrium size is normal. Aortic Valve Aortic valve is trileaflet. No aortic regurgitation is present. There is no aortic valvular stenosis. Mitral Valve The mitral valve is normal in structure. The leaflets are mildly thickened. Tra ce mitral regurgitation. There is no mitral valve stenosis. Tricuspid Valve The tricuspid valve is normal in structure. Trace tricuspid regurgitation. RVSP is normal. Pulmonic Valve Pulmonic valve is not well visualized. Great Vessels The aortic root is normal in size. The IVC is normal in size and collapses <50% with inspiration. Pericardium There is no pericardial effusion. Other Information Quality : Technically difficult study due to body habitus Conclusion Technically limited study with poor imaging windows. The left atrium is mildly dilated, 38ml/m2. There is normal left ventricular wall thickness. The apical anterior lateral, inferolateral carrillo are severely hypokinetic. The apical inferior wall is thin, scarred and akinetic. The other carrillo are grossly normal. Left ventricle systolic function is moderately depressed, estimated LVEF 40%. Indeterminate diastolic dysfunction. Trace mitral regurgitation. Trace tricuspid regurgitation. PASP is normal. There is no pericardial effusion. Recommend repeating an echocardiogram with Definity contrast to assess wall motion and LVEF. DICTATED BY: VEE BARILLAS MD DATE: 12/17/24 1441 ELECTRONICALLY SIGNED BY: VEE BARILLAS MD DATE: 12/17/24 1707 PATIENT: ASHA SUERO MR#: [id number] : 1975 SEX: M AGE: 49 LOCATION: 2CH ORDER 0922 STATUS: [facility] REPORT#: [id number] SERVICE 0917 REASON: EVALUATE S/S STROKE ORDERING PHYSICIAN: ZARI JORDAN APRN PROCEDURE: CAROTID - US CAROTID DUPLEX EXAM: US Duplex Bilateral Carotid and Vertebral Arteries. CLINICAL HISTORY: EVALUATE S/S STROKE TECHNIQUE: Real-time ultrasound scan of the bilateral carotid and vertebral arteries, 2-D grayscale, with color Doppler flow and spectral waveform analysis. COMPARISON: None provided. FINDINGS: RIGHT COMMON CAROTID ARTERY: PSV???77 cm/sec, no occlusion or significant stenosis. RIGHT INTERNAL CAROTID ARTERY: PSV???96 cm/sec, no occlusion or significant stenosis. RIGHT EXTERNAL CAROTID ARTERY: PSV- 64 cm/sec, no occlusion or significant stenosis. RIGHT VERTEBRAL ARTERY: Antegrade flow. PSV 62 cm/sec RIGHT ICA/CCA RATIO: 1.2 Within normal limits. LEFT COMMON CAROTID ARTERY: PSV- 85 cm/sec, no occlusion or significant stenosis. Soft tissue plaque in proximal CCA. LEFT INTERNAL CAROTID ARTERY: PSV- 55 cm/sec, no occlusion or significant stenosis. LEFT EXTERNAL CAROTID ARTERY: PSV -86 cm/sec No occlusion or significant stenosis. LEFT VERTEBRAL ARTERY: Antegrade flow. PSV 37 cm/sec LEFT ICA/CCA RATIO: 0.6 Within normal limits. SOFT TISSUES: No incidental abnormalities. IMPRESSION: 1. No hemodynamically significant stenosis in bilateral carotid or vertebral arteries. /[place] DICTATED BY: ALICE LEARY Jr., MD DATE: 12/17/241219 ELECTRONICALLY SIGNED BY: ALICE LEARY Jr., MD DATE: 12/17/241219 PATIENT: ASHA SUERO MR#: [id number] : 1975 SEX: M AGE: 49 LOCATION: 2CH ORDER 0909 STATUS: ADM IN REPORT#: [id number] SERVICE 0908 REASON: S ORDERING PHYSICIAN: JAENT IVAN MD PROCEDURE: HEAD WO - CT HEAD/BRAIN W/O CONTRAST ADDENDUM REPORT ADDENDUM: Results were shared by telephone at 11:10 am on 12/17/24 and acknowledged by Sacha Esparza /[place] EXAM: Non-contrast CT examination of the Brain CLINICAL HISTORY: Rule out stroke. Altered mental status. TECHNIQUE: Thin collimated axial CT images of the brain were obtained, with sagittal and coronal reformatted images also submitted. CT scan done according to ALARA (As Low as Reasonably Achievable). CONTRAST USED: None. COMPARISON: Prior CT brain dated 02/02/23. FINDINGS: No acute intracranial abnormality is present. No acute cortical infarction, hemorrhage, mass, or mass effect. Mild generalized cerebral atrophy. No hydrocephalus or abnormal extra-axial fluid collections. Stable encephalomalacia in the bilateral inferior cerebellar hemispheres. The skull base and calvarium are intact. The mastoid air cells are clear. Mucosal disease in the visualized right maxillary sinus. IMPRESSION: No acute intracranial abnormality is present. Stable encephalomalacia in the bilateral inferior cerebellar hemispheres suggesting sequelae of prior insult. No significant interval change. /[place]cy DICTATED BY: ALICE LEARY Jr., MD DATE: 12/17/24 1112 ELECTRONICALLY SIGNED BY: DATE: EXAM: Non-contrast CT examination of the Brain CLINICAL HISTORY: Rule out stroke. Altered mental status. TECHNIQUE: Thin collimated axial CT images of the brain were obtained, with sagittal and coronal reformatted images also submitted. CT scan done according to ALARA (As Low as Reasonably Achievable). CONTRAST USED: None. COMPARISON: Prior CT brain dated 02/02/23. FINDINGS: No acute intracranial abnormality is present. No acute cortical infarction, hemorrhage, mass, or mass effect. Mild generalized cerebral atrophy. No hydrocephalus or abnormal extra-axial fluid collections. Stable encephalomalacia in the bilateral inferior cerebellar hemispheres. The skull base and calvarium are intact. The mastoid air cells are clear. Mucosal disease in the visualized right maxillary sinus. IMPRESSION: No acute intracranial abnormality is present. Stable encephalomalacia in the bilateral inferior cerebellar hemispheres suggesting sequelae of prior insult. No significant interval change. /[place]astern DICTATED BY: ALICE LEARY Jr., MD DATE: 12/17/24 105 ELECTRONICALLY SIGNED BY: ALICE LEARY Jr., MD DATE: 12/17/24 105 PATIENT: ASHA SUERO MR#: [id number] : 1975 SEX: M AGE: 49 LOCATION: 2DH ORDER 1329 STATUS: ADM IN REPORT#: [id number] SERVICE 132 REASON: renal failure ORDERING PHYSICIAN: JANET IVAN MD PROCEDURE: RENAL - US RENAL SONOGRAM EXAMINATION: ULTRASOUND OF THE RETROPERITONEUM. CLINICAL HISTORY: Renal failure. COMPARISON: CT abdomen and pelvis without contrast dated 12/15/2024. TECHNIQUE: Real-time grayscale ultrasound images of the kidneys. FINDINGS: The kidneys are normal in caliber, the right kidney measures 11.9 x 5.0 x 7.8 cm and the left kidney measures 13.0 x 7.6 x 3.8 cm in its craniocaudal, AP, and transverse dimensions respectively. There is normal renal cortical thickness, and cortical echogenicity. There is no renal calculus or hydronephrosis. The urinary bladder is empty with Thomas???s bulb. There is wall thickening (0.6 cm). IMPRESSION: Urinary bladder wall thickening of concern for cystitis. Recommend urine routine. Previously demonstrated bilateral moderate hydroureteronephrosis is not visualized. /[place]astern DICTATED BY: ALICE LEARY Jr., MD DATE: 12/17/24943 ELECTRONICALLY SIGNED BY: ALICE LEARY Jr., MD DATE: 12/17/24943 PATIENT: ASHA SUERO MR#: [id number] : 1975 SEX: M AGE: 49 LOCATION: EDHIP ORDER 1041 STATUS: ADM IN REPORT#: [id number] SERVICE 1040 REASON: urinary retention, testicular swelling wo per provider ORDERING PHYSICIAN: NYLA MORALES PROCEDURE: ABD PEL WO - CT ABDOMEN/PELVIS W/O CONTRAST EXAM: CT Abdomen and Pelvis Without IV contrast CLINICAL HISTORY: urinary retention, testicular swelling wo per provider TECHNIQUE: Axial computed tomography images of the abdomen and pelvis without intravenous contrast. CONTRAST: No IV contrast. COMPARISON: [facility] dated 02/08/23 FINDINGS: LUNG BASES: There are atelectatic bands within the bilateral lower lobes. LIVER: Unremarkable. GALLBLADDER AND BILE DUCTS: Post cholecystectomy status with surgical clips in situ. PANCREAS: Unremarkable. SPLEEN: Unremarkable. ADRENAL GLANDS: Unremarkable. KIDNEYS, URETERS, AND BLADDER: There is marked concentric bladder wall thickening, more pronounced posteriorly, with perivesicular fat stranding likely reflecting cystitis. There is reflux within the bilateral ureters resulting in severe bilateral hydronephrosis and also bilateral perinephric fat stranding reflecting pyelonephritis. There is no radiopaque calculus appreciated. STOMACH AND BOWEL: Unremarkable appearance of the stomach and bowel. No evidence of bowel obstruction. No evidence suggesting enteritis or colitis. APPENDIX: No evidence of acute appendicitis on CT examination. PERITONEUM: Small 7 mm fat-containing umbilical hernia. LYMPH NODES: No lymphadenopathy is evident. REPRODUCTIVE: A well-defined hypodense collection along the right penoscrotal region, measuring 6 x 5.1 cm, concerning for abscess. VASCULATURE: Atherosclerotic changes of the abdominal aorta. BONES: No aggressive appearing osseous lesion. No acute osseous pathology evident. IMPRESSION: 1. Severe bilateral hydronephrosis with pyelonephritis and perinephric fat stranding. 2. Marked bladder wall thickening with perivesicular fat stranding, compatible with cystitis. 3. 6 x 5.1 cm right penoscrotal hypodense collection, concerning for abscess. /[place]cy DICTATED BY: ALICE LEARY Jr., MD DATE: 12/15/241458 ELECTRONICALLY SIGNED BY: ALICE LEARY Jr., MD DATE: 12/15/241458 PATIENT: ASHA SUERO MR#: [id number] : 1975 SEX: M AGE: 49 LOCATION: EDH ORDER 1036 STATUS: REG ER REPORT#: [id number] SERVICE 1032 REASON: SEPSIS ORDERING PHYSICIAN: NYLA MORALES PROCEDURE: CXR1VW - CHEST 1VW EXAM: CR Chest, 1 View. CLINICAL HISTORY: SEPSIS COMPARISON: None provided. FINDINGS: LUNGS: There is no mass, infiltrate, or acute pulmonary abnormality. Mild bibasilar atelectasis. PLEURAL SPACES: No pleural effusion or pneumothorax. MEDIASTINUM: The cardiomediastinal silhouette is within normal limits. BONES: No acute osseous abnormality. IMPRESSION: No acute cardiopulmonary pathology is evident. /Eastern DICTATED BY: ALICE LEARY Jr., MD DATE: 12/15/241348 ELECTRONICALLY SIGNED BY: ALICE LEARY Jr., MD DATE: 12/15/24 134 PATIENT: ASHA SUERO MR#: [id number] : 1975 SEX: M AGE: 49 [facility]ATION: [facility] ORDER 1015 STATUS: REG ER REPORT#: [id number] SERVICE 1013 REASON: TESTICULAR PAIN/SWELLING ORDERING PHYSICIAN: NYLA MORALES PROCEDURE: SCROTUM - US SCROTUM & CONTENTS ADDENDUM REPORT ADDENDUM: Results were shared by telephone at 13:33 pm on 12-15-24 and acknowledged by Nyla Ordonez /Eastern EXAM: US Scrotum. CLINICAL HISTORY: TESTICULAR PAIN/SWELLING TECHNIQUE: Real-time ultrasound of the scrotum with color Doppler and image documentation. COMPARISON: Study dated 07/29. FINDINGS: RIGHT TESTICLE: Normal in size (3.3 cm x 1.5 cm x 2.4 cm) and echogenicity, no abnormal mass. Mildly reduced Doppler flow. LEFT TESTICLE: Normal in size (3.6 cm x 1.4 cm x 2.1 cm) and echogenicity, no abnormal mass. Normal Doppler flow. EPIDIDYMIDES: Within normal limits in size and vascularity. A 3 x 3 x 3 mm cyst along the head of the right epididymis. SCROTUM: There is significant improvement of previously documented abscess measuring 2.5 x 2.2 cm along the right scrotal wall (6 mm). No hydrocele, varicocele seen. IMPRESSION: 1. Scrotal wall abscess along the right side, measuring 2.5 x 2.2 cm, showing significant improvement/reduction in size. 2. Mildly reduced blood flow to the right testicle. Clinical correlation is advised for possible intermittent right testicular torsion. /Eastern DICTATED BY: ALICE LEARY Jr., MD DATE: 12/15/24 1339 ELECTRONICALLY SIGNED BY: DATE: EXAM: US Scrotum. CLINICAL HISTORY: TESTICULAR PAIN/SWELLING TECHNIQUE: Real-time ultrasound of the scrotum with color Doppler and image documentation. COMPARISON: Study dated 07/29. FINDINGS: RIGHT TESTICLE: Normal in size (3.3 cm x 1.5 cm x 2.4 cm) and echogenicity, no abnormal mass. Mildly reduced Doppler flow. LEFT TESTICLE: Normal in size (3.6 cm x 1.4 cm x 2.1 cm) and echogenicity, no abnormal mass. Normal Doppler flow. EPIDIDYMIDES: Within normal limits in size and vascularity. A 3 x 3 x 3 mm cyst along the head of the right epididymis. SCROTUM: There is significant improvement of previously documented abscess measuring 2.5 x 2.2 cm along the right scrotal wall (6 mm). No hydrocele, varicocele seen. IMPRESSION: 1. Scrotal wall abscess along the right side, measuring 2.5 x 2.2 cm, showing significant improvement/reduction in size. 2. Mildly reduced blood flow to the right testicle. Clinical correlation is advised for possible intermittent right testicular torsion. /Eastern DICTATED BY: ALICE LEARY Jr., MD DATE: 12/15/24 1324 ELECTRONICALLY SIGNED BY: ALICE LEARY Jr., MD DATE: 12/15/24 1324 ASSESSMENT: Acute on chronic renal failure Nephrotic syndrome Anemia Severe bilateral hydronephrosis with pyelonephritis Sepsis Progressive scrotal cellulitis with developing right hemiscrotum abscess Severe complicated urinary tract infection Urinary retention S/p Thomas catheter Electrolyte derangement Coronary artery disease Uncontrolled Diabetes mellitus type 2 Hyperlipidemia Hypertension PAD S/p left AKA Severe protein calorie malnutrition Obesity Debility Right eye blindness Decreased vision of left eye PLAN: Labs, diagnostic, radiologic exams reviewed and interpreted by myself and supervising physician. We have reviewed external records in detail Pending further surgery recommendations Continue with the antibiotics as per ID Pending further Neurology recommendations Require close monitoring of renal function and electrolytes Order CBC, CMP, and electrolytes in am BiPAP as necessary, for respiratory distress Monitor blood pressure adjust medication doses as needed Avoid hypotensive episodes May use Dilaudid 0.5 mg IV every 6 hours as needed for severe pain Monitor blood sugars Strict intake, output, and daily weight should be monitored Please renally adjust medications Avoid nephrotoxic and nonsteroidal drugs Avoid contrast if possible Will continue to monitor renal function, anemia, electrolytes Treatment plan discussed with patient Questions were answered We have discussed with the other team physicians in detail about the care plan We will continue to monitor the patient closely ATTESTATION BY PHYSICIAN I have seen and examined the patient. I reviewed the documentation, medical decision making, and treatment plan as noted by the mid-level provider above. I agree with the findings and plan of care. KRUPA MANDEL MD, [facility] Dec 19, 2024 15:44
--- NOTE | 2024-12-19 16:30 | NUR ---
[facility] Follow-up: Patient re-assessed by wound healing team. Wound vac applied to scrotum, tolerated well. Assessment and recommendations provided to primary nurse. Education provided. Addendum: 12/19/24 at 1648 by MATTEO LEARY RN RN/ Amended: Links added.
[2024-12-19] MEDS: HONEY 1 APPL/ML TUBE TP STA (16:35)
--- NOTE | 2024-12-19 16:52 | CONS ---
CONSULT NOTE: Consulting physician:Dr Lomeli Consulting service: General surgery Reason for consultation: Rectal fistula History of present illness: This is a 41-year-old male consulted to surgery after initially presenting to [facility] with concerns of perineal abscess which was taken to OR by Urology. Nursing has been performing wound care due to concerns about the depth of the wound extending into the right mucosa surgical team consulted for possible rectal fistula rule out. At this time patient is seen in her room resting vitals signs stable. Patient is hemodynamically stable and continues with IV antibiotics. Wound care performed by nursing at this time but no fecal drainage reported at time of dressing change. 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 Choudhury on 07/2024 PAST SOCIAL HISTORY: [Patient lives with his . Patient denies alcohol tobacco and recreational drug use . Patient states he used to smoke cigarette for 17 years two packs per day and quit two years ago Allergies: Morphine causes headache Home medications: patient reports being on [id number] mg daily, [id number] mg daily, Lantus 50 units daily, insulin lispro,5 units b.i.d. p.c., losartan 50 mg daily, Colace daily, Janumet twice daily, Flomax 0.4 mg daily, clotrimazole cream twice daily, ferrous [id number] mg daily, Lipitor 40 mg daily Coded Allergies: morphine (Unverified Allergy, Intermediate, HALLUCINATIONS, 02/13/23) Review of systems: General: No Fever, No Chills, No Night Sweats, No Fatigue, No Malaise, No Appetite, No Other HEENT: No Head Aches, No Visual Changes, No Eye Pain, No Ear Pain, No Dy sphasia, No Sinus Congestion, No Post Nasal Drip, No Sore Throat, No Other Pulmonary: No Dyspnea, No Cough, No Pleuritic Chest Pain, No Other Cardiovascular: No: Chest Pain, Palpitations, Orthopnea, Paroxysmal No Dyspnea, Edema, Lt Headedness, Other Gastrointestinal: No: Nausea, Vomiting, Diarrhea, Constipation, Melena, Hematochezia, Other Genitourinary: No Dysuria, No Frequency, No Incontinence, No Hematuria, No Retention, No Other Musculoskeletal: No: other, neck pain, shoulder pain, arm pain, back pain, hand pain, leg pain, foot pain Skin: No Urticaria, No Rash, No Other Neurological: No: Weakness, Numbness, Incoordination, Change in speech, Confusion, Seizures, Other Physical exam: GENERAL APPEARANCE: The patient is awake, alert, and oriented, in no acute cardiopulmonary distress. NEUROLOGICAL: Cranial nerves II-XII grossly intact. Motor is 5/5 in bilateral upper and lower extremities proximal to distal. No sensory deficits. HEENT: Face is symmetric. Pupils are equal and reactive. Extraocular movements are intact. NECK: Supple. No JVD. No thyromegaly. No submental, submandibular, pre- /postauricular, occipital or supraclavicular lymphadenopathy. CHEST: Normal chest expansion. No Telemetry. LUNGS: Absence of any rales, rhonchi or any wheezing. CARDIOVASCULAR: Regular. S1 and S2 normal. No appreciable rubs, murmurs or gallops. ABDOMEN: Soft, nontender, and nondistended. There is no rebound, voluntary guarding, or rigidity. : Thomas catheter noted draining cloudy urine, significant redness and swelling noted of the scrotum, mild tenderness to palpation EXTREMITIES: No significant swelling noted Assessment: This is a 41-year-old male status post perineal I and D with concerns of possible rectal fistula Plan: This point in time patient would continue with current wound care management No immediate intervention likely to be performed this hospitalization Patient would be recommended to follow up in outpatient setting where patient to be scheduled for seton placement Patient to continue with IV antibiotics Continue with current wound care Dr. Dillon to be updated in patient's status and surgical team to follow RICHARD Granger Jr. Dec 19, 2024 16:52
--- NOTE | 2024-12-19 18:56 | PN ---
Endocrinology progress note DOS: 12/19/24 subjective: hyperglycemia is improving now s/p surgery for deep perineal abscess. Home diabetic regimen: lantus 50 units daily, lispro insulin 25 units tid before meals, janumet mg bid Hba1c 14% REVIEW OF SYSTEMS CONSTITUTIONAL: fevers, chills and malaise NEUROLOGICAL: Denies headache, amaurosis fugax, motor weakness, sensory deficit, vertigo/spinning sensation, gait abnormalities, or tremors. ENT: No hearing loss, otalgia, otorrhea, rhinitis, rhinorrhea, hoarseness, or sore throat. CARDIOVASCULAR: Denies any exertional angina, dyspnea on exertion, orthopnea, paroxysmal nocturnal dyspnea, palpitations, life-threatening arrhythmias, claudication. PULMONARY: Denies any shortness of breath, cough, phlegm/sputum, hemoptysis, pleuritic chest pain. SLEEP: Denies morning headaches, daytime somnolence or napping. Denies difficulty falling asleep, staying asleep, waking from sleep. Denies knowledge of snoring. GASTROINTESTINAL: Denies any type of dysphagia to either liquids or solids. Denies nausea, vomiting, pyrosis, early satiety, abdominal pain, diarrhea, constipation, or changes in stool consistency or caliber. Denies coffee-ground emesis, hematemesis, hematochezia, or melanotic stools. GENITOURINARY: redness, swelling and pain to the right side of the scrotum ENDOCRINOLOGIC: poorly controlled DM II with hyperglycemia HEMATOLOGIC: Denies thrombophilia/previous clots, or coagulopathy/bleeding disorders. ONCOLOGIC: Denies personal history of malignancy. DERMATOLOGIC: redness and swelling to the right richie-scrotum PSYCHIATRIC: Denies any suicidal or homicidal ideation. Denies hallucinations. 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 Choudhury on 07/2024 PAST SOCIAL HISTORY: [Patient lives with his . Patient denies alcohol tobacco and recreational drug use . Patient states he used to smoke cigarette for 17 years two packs per day and quit two years ago] Allergies: Morphine causes headache Home medications: patient reports being on [id number] mg daily, Ijgmgo18 mg daily, Lantus 50 units daily, insulin lispro,5 units b.i.d. p.c., losartan 50 mg daily, Colace daily, Janumet twice daily, Flomax 0.4 mg daily, clotrimazole cream twice daily, ferrous [id number] mg daily, Lipitor 40 mg daily Coded Allergies: morphine (Unverified Allergy, Intermediate, HALLUCINATIONS, 02/13/23) DIAGNOSTICS / RADIOLOGY: SERVICE 1040 REASON: urinary retention, testicular swelling wo per provider ORDERING PHYSICIAN: NYLA MORALES PROCEDURE: ABD PEL WO - CT ABDOMEN/PELVIS W/O CONTRAST EXAM: CT Abdomen and Pelvis Without IV contrast CLINICAL HISTORY: urinary retention, testicular swelling wo per provider TECHNIQUE: Axial computed tomography images of the abdomen and pelvis without intravenous contrast. CONTRAST: No IV contrast. COMPARISON: [facility] dated 02/08/23 FINDINGS: LUNG BASES: There are atelectatic bands within the bilateral lower lobes. LIVER: Unremarkable. GALLBLADDER AND BILE DUCTS: Post cholecystectomy status with surgical clips in situ. PANCREAS: Unremarkable. SPLEEN: Unremarkable. ADRENAL GLANDS: Unremarkable. KIDNEYS, URETERS, AND BLADDER: There is marked concentric bladder wall thickening, more pronounced posteriorly, with perivesicular fat stranding likely reflecting cystitis. There is reflux within the bilateral ureters resulting in severe bilateral hydronephrosis and also bilateral perinephric fat stranding reflecting pyelonephritis. There is no radiopaque calculus appreciated. STOMACH AND BOWEL: Unremarkable appearance of the stomach and bowel. No evidence of bowel obstruction. No evidence suggesting enteritis or colitis. APPENDIX: No evidence of acute appendicitis on CT examination. PERITONEUM: Small 7 mm fat-containing umbilical hernia. LYMPH NODES: No lymphadenopathy is evident. REPRODUCTIVE: A well-defined hypodense collection along the right penoscrotal region, measuring 6 x 5.1 cm, concerning for abscess. VASCULATURE: Atherosclerotic changes of the abdominal aorta. BONES: No aggressive appearing osseous lesion. No acute osseous pathology evident. IMPRESSION: 1. Severe bilateral hydronephrosis with pyelonephritis and perinephric fat stranding. 2. Marked bladder wall thickening with perivesicular fat stranding, compatible with cystitis. 3. 6 x 5.1 cm right penoscrotal hypodense collection, concerning for abscess. /[place] DICTATED BY: ALICE LEARY Jr., MD DATE: 12/15/24 1459 ELECTRONICALLY SIGNED BY: ALICE LEARY Jr., MD DATE: 12/15/24 1459 ELECTRONICALLY SIGNED BY: DATE: EXAM: US Scrotum. CLINICAL HISTORY: TESTICULAR PAIN/SWELLING TECHNIQUE: Real-time ultrasound of the scrotum with color Doppler and image documentation. COMPARISON: Study dated 07/29. FINDINGS: RIGHT TESTICLE: Normal in size (3.3 cm x 1.5 cm x 2.4 cm) and echogenicity, no abnormal mass. Mildly reduced Doppler flow. LEFT TESTICLE: Normal in size (3.6 cm x 1.4 cm x 2.1 cm) and echogenicity, no abnormal mass. Normal Doppler flow. EPIDIDYMIDES: Within normal limits in size and vascularity. A 3 x 3 x 3 mm cyst along the head of the right epididymis. SCROTUM: There is significant improvement of previously documented abscess measuring 2.5 x 2.2 cm along the right scrotal wall (6 mm). No hydrocele, varicocele seen. IMPRESSION: 1. Scrotal wall abscess along the right side, measuring 2.5 x 2.2 cm, showing significant improvement/reduction in size. 2. Mildly reduced blood flow to the right testicle. Clinical correlation is advised for possible intermittent right testicular torsion. /[place] DICTATED BY: ALICE LEARY Jr., MD DATE: 12/15/24 1324 ELECTRONICALLY SIGNED BY: ALICE LEARY Jr., MD DATE: 12/15/24 1324 ASSESSMENT: uncontrolled DM-2 and hyperglycemia insulin adjusted and glucose are improvingl. now s/p surgery for deep perineal abscess. Home diabetic regimen: lantus 50 units daily, lispro insulin 25 units tid before meals, janumet mg bid Hba1c 14% Sepsis secondary to complicated urinary tract infection and scrotal cellulitis with abscess, POA s/p surgery Progressive scrotal cellulitis with developing right hemiscrotal abscess, POA Severe complicated urinary tract infection, POA Urinary retention status post Thomas catheter placement, POA Bilateral hydronephrosis, POA Acute kidney injury with underlying history of chronic kidney disease, POA History of Farxiga use as outpatient, POA but off due to hx of perineal abscess Hypertension, POA History of dual antiplatelet therapy with aspirin and Plavix as outpatient, POA History of coronary artery disease with prior history of coronary intervention and stenting, POA History of peripheral arterial disease with history of lower extremity angioplasty and stenting, POA History of TIA, POA Hypertension, POA Hyperlipidemia, POA Debility, POA Right eye blindness, POA Decreased vision of left eye, POA History of iron deficiency anemia, POA History of hospitalization in [facility] for right epididymo-orchitis with abscess requiring surgical drainage,07/2024, POA PLAN: continue Lantus 50 units daily and adjust for fasting glucose. continue Regular insulin 15 units daily and adjust for post-prandial glucose. Continue medium dose sliding scale insulin. Monitor glucose q x 6 hourly. Continue carb consistent diet. Keep glucose less than 180 mg/dl. Vitals/Labs Vital Signs Date Time Temp Pulse Resp B/P (MAP) Pulse Ox O2 Delivery O2 Flow Rate FiO2 12/19/24 16:00 98.1 75 16 143/78 96 Room Air 12/18/24 20:00 0 21 Laboratory Tests 12/19/24 04:07 Medications Current Medications Acetaminophen 1,000 mg ONCE ONCE PO Last administered on 12/15/24at 11:13; Start 12/15/24 at 11:00; Stop 12/15/24 at 11:01; Status DC Sodium Chloride 1,000 ml @ 0 mls/hr ONCE ONCE IV Last administered on 12/15/24at 11:33; Start 12/15/24 at 11:00; Stop 12/15/24 at 11:01; Status DC Vancomycin HCl 1 each AD IV; Start 12/15/24 at 11:00; Stop 12/15/24 at 23:52; Status DC Cefepime HCl 1 gm ONCE ONCE IVPB Last administered on 12/15/24at 11:37; Start 12/15/24 at 11:00; Stop 12/15/24 at 11:01; Status DC Vancomycin HCl 250 ml @ 125 mls/hr ONCE ONCE IV Last administered on 12/15/24at 11:51; Start 12/15/24 at 11:00; Stop 12/15/24 at 12:59; Status DC Insulin Human Regular 10 unit ONCE ONCE IV Last administered on 12/15/24at 11:48; Start 12/15/24 at 11:30; Stop 12/15/24 at 11:31; Status DC Vancomycin HCl 250 ml @ 125 mls/hr Q48H IV; Start 12/17/24 at 11:00; Stop 12/15/24 at 13:19; Status DC Insulin Human Regular INSULIN SLIDING SCAL... ACHS SQ Last administered on 12/15/24at 21:03; Start 12/15/24 at 16:30; Stop 12/16/24 at 06:19; Status DC Dextrose 50 ml AD PRN IV; Start 12/15/24 at 13:30; Stop 01/14/25 at 13:29 Glucagon 1 mg AD PRN IM; Start 12/15/24 at 13:30; Stop 01/14/25 at 13:29 Pharmacy Profile Note 1 each ONCE MISC; Start 12/15/24 at 13:30; Stop 12/15/24 at 14:18; Status DC Atorvastatin Calcium 40 mg HS PO Last administered on 12/18/24at 20:44; Start 12/15/24 at 21:00; Stop 01/14/25 at 20:59 Tamsulosin HCl 0.4 mg DAILY PO Last administered on 12/19/24at 10:01; Start 12/16/24 at 09:00; Stop 01/15/25 at 08:59 Ferrous Sulfate 325 mg DAILY PO Last administered on 12/19/24at 10:01; Start 12/16/24 at 09:00; Stop 01/15/25 at 08:59 Home Med (Sennosides/ Docusate Sodium (Colace 2-i... DAILY PO; Start 12/16/24 at 09:00; Stop 01/15/25 at 08:59 Sodium Chloride 1,000 ml @ 75 mls/hr [id number] IV Last administered on 12/17/24at 01:40; Start 12/15/24 at 13:30; Stop 12/17/24 at 10:49; Status DC Hydromorphone HCl 0.2 mg Q6H PRN IVP Last administered on 12/17/24at 04:34; Start 12/15/24 at 13:30; Stop 12/18/24 at 09:00; Status DC Famotidine 20 mg DAILY IV Last administered on 12/17/24at 08:53; Start 12/16/24 at 09:00; Stop 12/17/24 at 10:49; Status DC Sodium Chloride 500 ml @ 0 mls/hr ONCE ONCE IV Last administered on 12/15/24at 15:13; Start 12/15/24 at 14:30; Stop 12/15/24 at 14:31; Status DC Hydralazine HCl 5 mg Q6H PRN IV; Start 12/15/24 at 14:30; Stop 01/14/25 at 14:29 Meropenem 1 gm Q12H IVPB Last administered on 12/17/24at 17:11; Start 12/15/24 at 16:00; Stop 12/17/24 at 19:54; Status DC Linezolid 300 ml @ 150 mls/hr Q12H IV Last administered on 12/17/24at 08:53; Start 12/15/24 at 21:00; Stop 12/17/24 at 19:54; Status DC Vitamin B Complex/ Vit C/Folic Acid 1 cap DAILY PO Last administered on 12/19/24at 10:01; Start 12/16/24 at 09:00; Stop 01/15/25 at 08:59 Insulin Glargine 25 units HS SQ; Start 12/15/24 at 21:00; Stop 12/15/24 at 18:52; Status DC Insulin Glargine 20 units HS SQ Last administered on 12/15/24at 21:05; Start 12/15/24 at 21:00; Stop 12/16/24 at 06:19; Status DC Insulin Glargine 20 units DAILY SQ; Start 12/16/24 at 09:00; Stop 12/17/24 at 07:32; Status DC Insulin Human Regular 8 unit TIDAC SQ Last administered on 12/17/24at 06:59; Start 12/16/24 at 07:30; Stop 12/17/24 at 07:32; Status DC Insulin Human Regular INSULIN SLIDING SCAL... ACHS SQ Last administered on 12/19/24at 11:33; Start 12/16/24 at 07:30; Stop 01/15/25 at 07:29 Sodium Bicarbonate 650 mg QID PO Last administered on 12/19/24at 16:35; Start 12/16/24 at 13:00; Stop 01/15/25 at 12:59 Sodium Bicarbonate 50 meq ONCE ONCE IV Last administered on 12/16/24at 12:34; Start 12/16/24 at 12:00; Stop 12/16/24 at 12:05; Status DC Dexamethasone Sodium Phosphate 4 mg STK-MED ONCE .ROUTE; Start 12/16/24 at 15:54; Stop 12/16/24 at 16:00; Status DC Lidocaine HCl 5 ml STK-MED ONCE .ROUTE; Start 12/16/24 at 15:54; Stop 12/16/24 at 16:00; Status DC Midazolam HCl 2 mg STK-MED ONCE .ROUTE; Start 12/16/24 at 15:55; Stop 12/16/24 at 16:00; Status DC Propofol 200 mg STK-MED ONCE IV; Start 12/16/24 at 15:55; Stop 12/16/24 at 16:00; Status DC Succinylcholine Chloride 200 mg STK-MED ONCE .ROUTE; Start 12/16/24 at 15:55; Stop 12/16/24 at 16:00; Status DC Ondansetron HCl 4 mg STK-MED ONCE .ROUTE; Start 12/16/24 at 15:55; Stop 12/16/24 at 16:00; Status DC Rocuronium [place] 50 mg STK-MED ONCE .ROUTE; Start 12/16/24 at 15:55; Stop 12/16/24 at 16:00; Status DC Fentanyl Citrate 100 mcg STK-MED ONCE .ROUTE; Start 12/16/24 at 15:55; Stop 12/16/24 at 16:00; Status DC Insulin Glargine 50 units DAILY SQ Last administered on 12/19/24at 10:40; Start 12/17/24 at 09:00; Stop 01/16/25 at 08:59 Insulin Human Regular 15 unit TIDAC SQ Last administered on 12/19/24at 11:35; Start 12/17/24 at 07:30; Stop 01/16/25 at 07:29 Naloxone HCl 2 mg ONCE IV; Start 12/17/24 at 11:00; Stop 12/17/24 at 10:36; Status DC Naloxone HCl 2 mg ONCE ONCE IV; Start 12/17/24 at 11:00; Stop 12/17/24 at 11:01; Status DC Heparin Sodium (Porcine) 5,000 unit BID SQ Last administered on 12/19/24at 10:35; Start 12/17/24 at 11:00; Stop 01/16/25 at 10:59 Pantoprazole Sodium 40 mg DAILY IVP Last administered on 12/19/24at 10:01; Start 12/18/24 at 09:00; Stop 01/17/25 at 08:59 Sodium Bicarbonate 150 meq/Dextrose 1,150 ml @ 50 mls/hr Q23H IVP Last administered on 12/18/24at 08:25; Start 12/17/24 at 11:00; Stop 12/18/24 at 11:36; Status DC Aspirin 81 mg DAILY PO Last administered on 12/19/24at 10:01; Start 12/18/24 at 09:00; Stop 01/17/25 at 08:59 Acetaminophen 1,000 mg ONCE IVPB Last administered on 12/17/24at 17:11; Start 12/17/24 at 17:00; Stop 12/18/24 at 18:10; Status DC Linezolid 300 ml @ 150 mls/hr Q12H IV Last administered on 12/19/24at 10:01; Start 12/17/24 at 21:00; Stop 12/19/24 at 20:59 Meropenem 1 gm Q12H IVPB Last administered on 12/19/24at 16:35; Start 12/18/24 at 04:00; Stop 12/20/24 at 23:00 Magnesium Sulfate 50 ml @ 0 mls/hr PROTOCOL PRN IV Last administered on 12/18/24at 10:42; Start 12/18/24 at 09:30; Stop 01/17/25 at 09:29 Leptospermum Honey 1 APPLICATION ONCE STAT TP Last administered on 12/19/24at 16:35; Start 12/19/24 at 16:04; Stop 12/19/24 at 16:06; Status DC Leptospermum Honey 1 APPL [id number] TP; Start 12/21/24 at 09:00; Stop 01/20/25 at 08:59 CINDY HALE MD Dec 19, 2024 18:56
--- NOTE | 2024-12-19 20:25 | PN ---
INFECTIOUS DISEASE PROGRESS NOTE Date of Service: Dec 19, 2024 SUBJECTIVE: Patient was seen and examined at bedside in room 227. Patient is awake, alert and oriented x3. Patient is s/p drainage and excisional debridement of the scrotal wall abscess on 12/16/2024. The scrotal wound is draining serosanguineous drainage. The aerobic wound culture results came back positive for Irina albicans, Streptococcus agalactiae group B and yeast species. Remains afebrile, temperature is 98.8 and a WBC of 11.3. Patient continues on Meropenem and linezolid. We will continue to follow patient's care. PHYSICAL EXAM EYES: Anicteric. Pupils equal and reactive. HENT: No oral thrush seen, moist Oral mucosa. NECK: Supple, no JVD or thyromegaly. LUNGS: Good air entry. No rales, no rhonchi. CARDIOVASCULAR: S1, S2 regular. No murmur heard. ABDOMEN: Soft, non tender, bowel sounds present, no organomegaly. CENTRAL NERVOUS SYSTEM: Awake, alert, oriented x 3. SKIN: No rashes, no swelling. LYMPHATICS: No peripheral lymphadenopathy MUSCULOSKELETAL: No joint swelling, erythema or tenderness. EXTREMITIES: No cyanosis or clubbing BACK: No deformity, no pressure ulcer. GENITOURINARY: No dysuria or hematuria. Thomas catheter. Scrotal abscess, s/p drainage and debridement. Vital Sign (Last 12 Hours) 12/19/24 12/19/24 12:00 16:00 Temp 98.6 98.1 Pulse 73 75 Resp 20 16 B/P (MAP) 147/79 143/78 Pulse Ox 97 96 O2 Delivery Room Air Room Air Intake & Output (last 24hrs) 12/18/24 12/18/24 12/19/24 15:00 23:00 07:00 Intake Total 1150.0 ml 249.9 ml 99.9 ml Output Total 725 ml 475 ml 2000 ml Balance 425.0 ml -225.1 ml -1900.1 ml LABS: Laboratory: Test 12/19/24 17:05 12/19/24 04:07 12/18/24 13:40 Range/Units Whole Blood Glucose 110 # 70-110 MG/DL White Blood Count 11.3 H 4.8-10.8 K/uL Red Blood Count 4.14 L 4.50-6.20 MIL/uL Hemoglobin 10.5 L 14.0-18.0 g/dL Hematocrit 31.9 L 42-54 % Mean Corpuscular Volume 77.1 L 79-99 fL Mean Corpuscular Hemoglobin 25.4 L 27.0-33.0 pg Mean Corpuscular Hemoglobin Concent 32.9 32.0-36.0 g/dL Red Cell Distribution Width 13.9 11.0-15.5 % Platelet Count 564 H 130-400 K/uL Mean Platelet Volume 9.4 7.5-10.5 fL Immature Granulocyte % (Auto) 0.5 0-1 % Neutrophils (%) (Auto) 61.2 40.0-77.0 % Lymphocytes (%) (Auto) 27.3 21.0-51.0 % Monocytes (%) (Auto) 9.0 3.0-13.0 % Eosinophils (%) (Auto) 1.6 0.0-8.0 % Basophils (%) (Auto) 0.4 0.0-5.0 % Neutrophils # (Auto) 6.9 1.8-7.7 K/uL Lymphocytes # (Auto) 3.1 1.0-4.8 K/uL Monocytes # (Auto) 1.0 0.1-1.0 K/uL Eosinophils # (Auto) 0.18 0.00-0.70 K/uL Basophils # (Auto) 0.04 0.00-0.20 K/uL Absolute Immature Granulocyte (auto 0.06 0-1 K/uL Nucleated Red Blood Cells 0.0 0.0-0.19 % Sodium Level 132 L 136-145 mmol/L Potassium Level 4.0 3.5-5.1 mmol/L Chloride Level 101 101-111 mmol/L Carbon Dioxide Level 26 21-32 mmol/L Blood Urea Nitrogen 55 H 7-18 mg/dL Creatinine 1.7 H 0.5-1.3 mg/dL Glomerular Filtration Rate Calc 49 >90 mL/min Random Glucose 212 H 70-105 mg/dL Total Calcium 8.4 L 8.5-10.1 mg/dL Phosphorus Level 3.3 2.5-4.9 mg/dL Magnesium Level 1.90 1.80-2.40 mg/dL Total Bilirubin 0.2 0.2-1.0 mg/dL Aspartate Amino Transf (AST/SGOT) 17 10-37 U/L Alanine Aminotransferase (ALT/SGPT) 16 12-78 U/L Alkaline Phosphatase 197 H 50-136 U/L Total Protein 6.9 6.0-8.3 g/dL Albumin 1.4 L 3.5-5.0 g/dL Procalcitonin 0.08 0.05-0.5 ng/mL Urine Color LIGHT-ORANGE YELLOW Urine Appearance TURBID CLEAR Urine pH 6.0 5.0-8.0 Urine Specific [place] 1.011 1.001-1.031 Urine Protein 100 H NEGATIVE mg/dL Urine Glucose (UA) NEGATIVE NEGATIVE mg/dL Urine Ketones NEGATIVE NEGATIVE mg/dL Urine Occult Blood MODERATE H NEGATIVE Urine Nitrate NEGATIVE NEGATIVE Urine Bilirubin NEGATIVE NEGATIVE mg/dL Urine Urobilinogen 0.2 0.2-1.0 mg/dL Urine Leukocyte Esterase 500 H NEGATIVE [place]/uL Urine RBC None 0-1 /HPF Urine WBC 0-1 0-1 /HPF Urine Bacteria None None Seen /HPF DIAGNOSTICS / RADIOLOGY: PATIENT: ASHA SUERO ACCT: [id number] LOC: [facility] U: [id number] AGE/SX: 49/M ROOM: [facility] RE12/15/[address]: BENJAMIN VILLELA MD : 1975 BED: 1 DIS: STATUS: ADM IN TLOC: SPEC: [id number] KATTY: 12/16/24-153 STATUS: RES REQ: [id number] RECD: 12/16/24-[address]: SHAWNA JEAN-BAPTISTE MD SOURCE: SCROTUM ENTR: 12/16/24-[address]: GRANT SUMMERS MD SPDESC: ABSCESS TEQUILA,KRUPA HALE,BENJAMIN BAUTISTA MD, MD, GARRY C MD ORDERED: MERCEDES CULTURE, AEROBIC CULTURE Procedure Result Bryn Date-Time ANAEROBIC CULTURE Preliminary 12/19/24 MRL COLONY DESCRIPTION: REPORT 1: NO ANAEROBES AT 24-35 HOURS; STUDIES TO CONTINUE REPORT 2: NO ANAEROBES AT 48-59 HOURS; STUDIES TO CONTINUE Test(s) performed by: [facility] [address] [facility] [place] [address] AEROBIC CULTURE Final 12/19/24 MRL COLONY DESCRIPTION: REPORT 1: 2+ SKIN JOEY ; STUDIES TO CONTINUE COAGULASE NEGATIVE STAPHYLOCOCCUS 1+ GRAM POSITIVE COCCI IN CHAINS IDENTIFICATION TO FOLLOW BETA HEMOLYTIC STREPTOCOCCUS GROUP B REPORT 2: 1+ YEAST, IRINA ALBICANS 1+ YEAST SPECIES; NOT IRINA ALBICANS NO FURTHER WORK-UP DONE COMMENT: BETA STREPTOCOCCUS REMAIN SUSCEPTIBLE TO PENICILLIN COMMENT: NO FURTHER WORK-UP IRINA ALBICANS STREP AGALACTIAE GROUP B YEAST SPECIES ASSESSMENT: Perineal abscess, s/p drainage and excisional debridement on 12/16/2024 Sepsis. Polymicrobial infection. Urinary tract infection. Leukocytosis. Acute renal failure. Hydronephrosis. Diabetes mellitus. Recent right Scrotal wall abscess with I&D and debridement on 08/01/2024. PLAN: Continue Meropenem. Continue linezolid. Continue GI prophylaxis. Continue pain management. Continue wound care Continue antidiabetics. Avoid nephrotoxic medications. This case was reviewed and discussed with my supervising physician and the above assessment and plan was formulated and agreed upon. ATTESTATION BY PHYSICIAN I have seen and examined the patient. I reviewed the documentation, medical decision making, and treatment plan as noted by the mid-level provider above. I agree with the findings and plan of care. GRANT SUMMERS MD, MIRTA L [facility] Dec 19, 2024 20:25
[2024-12-20] VITALS (7 sets, daily range): BP systolic 136–155; BP diastolic 76–84; PULSE 80–85; RESP 18–20; TEMP 97.3–98.4; O2SAT 80–95
[2024-12-20 04:13] LABS: NUCLEATED RED BLOOD CELLS 0.0 % (0.0-0.19); PLATELET COUNT (AUTO) 570.0 K/uL (130-400); RED BLOOD CELL COUNT(AUTO) 4.03 MIL/uL (4.50-6.20); RED CELL DISTRIBUTION WIDTH 13.7 % (11.0-15.5); WHITE BLOOD COUNT (AUTO) 11.8 K/uL (4.8-10.8)
[2024-12-20 04:37] LABS: ASPARTATE AMINOTRANSFERASE 19.0 U/L (10-37); CREATININE 1.5 mg/dL (0.5-1.3); GLOMERULAR FILTR. RATE CALC 57.0 mL/min (>90); GLUCOSE,RANDOM 217.0 mg/dL (70-105); SODIUM SERUM 136.0 mmol/L (136-145); TOTAL PROTEIN, SERUM 6.8 g/dL (6.0-8.3); UREA NITROGEN, BLOOD 47.0 mg/dL (7-18)
[2024-12-20] MEDS: MAGNESIUM 2GM PREMIX 50ML 50 ML IV SCH (10:29)
--- NOTE | 2024-12-20 10:48 | PN ---
[facility] PROGRESS NOTE Date of Service: Dec 20, 2024 Time of Service: 10:46 SUBJECTIVE: 49-year-old male with history of poorly controlled type 2 diabetes mellitus, hypertension, hyperlipidemia, GERD, peripheral arterial disease, history of coronary artery disease with prior history of coronary stenting, peripheral arterial disease with prior history of angioplasty and stenting, morbid obesity, history of scrotal cellulitis with abscess requiring hospitalization in [facility] [place]. Patient presented to the ER for further evaluation of progressive pain, swelling to the right side of the scrotum ongoing for the past three days. Pain is moderate in intensity involving the right hemiscrotum. Patient reported having subjective fevers, chills as well feels. Reported having dysuria and suprapubic discomfort as well. Patient reported that he was previously hospitalized in [facility] on 07/20[place] where he was found to have right epididymo-orchitis. Patient during his hospitalization needed incision and drainage with debridement of right perineal and Ischiorectal abscess tracking into the scrotum by Dr. Choudhury on 08/01/2024. During this hospita lization had urinary retention requiring Thomas catheter placement. Discharged to long-term acute care for further IV antibiotic therapy. Patient denies any active chest pain, nausea, vomiting, or significant abdominal pain. On presentation to the ER, patient was noted to be in urinary retention with Thomas catheter placement yielding about 400 mL of urine. Patient underwent testicular ultrasound which showed findings of right scrotal wall abscess and mildly reduced flow to the right testicle. Patient underwent CT abdomen pelvis without contrast which showed findings of severe bilateral hydronephrosis with pyelonephritis, cystitis, and 3.6 cm x 5.1 cm right penoscrotal hypodense collection concerning for abscess. Patient admitted for further treatment and management of sepsis with underlying UTI, scrotal wall cellulitis with abscess, acute kidney injury and severe hyperglycemia. Consultation with Urology requested. Patient started on broad-spectrum antibiotics. 12/16 patient remains admitted to the PCU, blood pressure 135/86, afebrile, saturating normal on room air, WBC 14.8, hemoglobin 10.3, hematocrit 32.5, platelet count of 424. Sodium 131, potassium 4.4, CO2 of 19, BUN of 79, creatinine 3.3, uric acid 10.6, phosphorus 5.0. Iron level at 15. Blood gas with an ABG showing a pH of 7.32, pCO2 38, bicarb 19.3. Blood cultures no growth after 24 hours. Urine culture [id number] CFU, identification and sensitivity in progress. Patient evaluated by urologist, they abscesses and spontaneously draining, but the patient is still going to need formal incision and drainage. Clinical exam did not reveal findings suggestive of torsion. There was scrotal wall thickening worse of the right side with cellulitis. Recommended IV antibiotics for now. I will request a stat ABG to assess metabolic status. Patient with low iron level, follow stool occult blood, if positive we will request GI consultation. Patient currently on ferrous sulfate 325 mg p.o. daily. Infectious Disease consultation requested, follow input and recommendation. Patient with creatinine of 3.3, nephrology input noted and appreciated. Patient is started on insulin glargine 20 units subcutaneously daily as well as insulin sliding scale, continue to follow endocrinology input and recommendation. Renal ultrasound will be ordered, discussed with the equal opportunity specialist, if hydronephrosis we will request Urology consult. Follow up PSA level. During my visit patient comfortably in bed, alert oriented x3, no acute events overnight, results of renal function discussed with the patient and the at bedside. 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 Blood pressure 161/79, heart rate of 67, saturating 99% 2 L nasal cannula. CBC with a hemoglobin 11.0, hematocrit 34.7, WBC 12.4, platelet count 497. Sodium 132, potassium 5.1, BUN of 67, creatinine 2.3, (improving compared to yesterday) random glucose 430, total calcium 8.8, magnesium 2.0. Ammonia level less than 10. ABG showing a pH of 7.32, bicarb of 18.4. Renal ultrasound showed urinary bladder wall thickening consult for cystitis, previously bilateral moderate hydroureteronephrosis not visualized. CT head without contrast no acute intracranial abnormality, stable encephalomalacia in the bilateral inferior cerebellar hemispheres suggesting sequela of prior insult, no significant interval change. Ultrasound carotids no hemodynamically significant stenosis bilateral carotid or vertebral arteries. Continue the patient on broad-spectrum IV antibiotics, follow results of intraoperative cultures, continue to follow ID input recommendation, follow urology input and recommendation. Neurology consultation requested, we will follow input and recommendation. Patient upgraded to the ICU, continue close monitoring of the patient's mental status. Follow critical care input and recommendations. Renal function slowly improving, continue to monitor in a.m., continue to assess metabolic status with daily ABG, patient is started on sodium bicarbonate drip. Continue long-acting insulin with glargine 50 units subcutaneously daily as well as insulin sliding scale. A.m. labs At the time of my visit, patient is comfortably in bed, alert and oriented x3, results of CT head discussed with the patient, all questions answered, he denies dizziness, no headache, no chest pain, shortness shortness for breath, no nausea, no vomiting. No weakness to both upper or lower extremities, able to move four extremities well. Able to show me all his teeth without deviation of the mouth. not present in the room at the time of my visit. 12/18 patient remains admitted to the ICU, hemodynamically stable, BP 133/50, afebrile, saturating normal on room air, during my visit the patient is alert oriented x3, denies dizziness, no headache, no chest pain, shortness shortness for breath, no nausea, no vomiting, no focal neurological deficit noted, no slurry speech, able to move both upper and lower extremity. Hemoglobin 10.5, hematocrit 32.2, WBC of 11.2. Results of culture from scrotal abscess positive for Streptococcus agalactiae group B, urine culture positive for yeast. Echocardiogram done, the apical anterior lateral, inferolateral carrillo are severely hypokinetic, the apical inferior wall is thin, scarring and akinetic, LVEF 40%, indeterminate diastolic dysfunction, trace mitral regurgitation, no pericardial effusion. Neck MRA no significant stenosis appreciated. Patient will be downgraded to the PCU, continue broad-spectrum antibiotics, continue to follow urology and ID input and recommendations. 12/19 patient remains admitted to the PCU, BP 151/82, afebrile, saturating normal on room air. WBC 11.3, hemoglobin 10.5, hematocrit 31.9, with a platelet count of 564. BUN 55, creatinine 1.7. Scrotal abscess culture positive for Irina albicans, Streptococcus agalactiae group B and is species. Discharge plan discussed with case management, who is making arrangements for the patient to be discharged to LTAC. Urology input noted and appreciated, patient is status post incision and drainage of tip. José abscess extending towards the rectal region, possibility of the rectal fistula needs to be ruled out. We will request surgical consultation. Continue wound care, continue broad-spectrum antibiotics, continue to follow ID input recommendation, continue hemodialysis per Nephrology recommendations. At the time of my visit the patient is comfortably in bed, alert oriented x3, no focal neurological deficit, plan is to downgraded the patient to the medical floor. 12/20 patient downgraded from the PCU to the medical floor, remains hemodynamically stable, afebrile, saturating normal on room air. Discharge plan discussed again with case management, still pending insurance approval for the patient to be discharged to LTAC. Per urology recommendation, General surgery was contacted to evaluate for the possibility of rectal fistula, surgical input noted and appreciated, continue conservative management with the wound care for now. Endocrinology input noted and appreciated, continue long- acting as well as short-acting insulin, with the adjustments as needed. At the time of my visit patient comfortably in bed, alert oriented x3, no new focal neurological deficits, denied chest pain, shortness shortness for breath, no nausea, no vomiting, no abdominal pain. REVIEW OF SYSTEMS CONSTITUTIONAL: fevers, chills and malaise NEUROLOGICAL: Denies headache, amaurosis fugax, motor weakness, sensory deficit, vertigo/spinning sensation, gait abnormalities, or tremors. ENT: No hearing loss, otalgia, otorrhea, rhinitis, rhinorrhea, hoarseness, or sore throat. CARDIOVASCULAR: Denies any exertional angina, dyspnea on exertion, orthopnea, paroxysmal nocturnal dyspnea, palpitations, life-threatening arrhythmias, claudication. PULMONARY: Denies any shortness of breath, cough, phlegm/sputum, hemoptysis, pleuritic chest pain. SLEEP: Denies morning headaches, daytime somnolence or napping. Denies difficulty falling asleep, staying asleep, waking from sleep. Denies knowledge of snoring. GASTROINTESTINAL: Denies any type of dysphagia to either liquids or solids. Denies nausea, vomiting, pyrosis, early satiety, abdominal pain, diarrhea, constipation, or changes in stool consistency or caliber. Denies coffee-ground emesis, hematemesis, hematochezia, or melanotic stools. GENITOURINARY: redness, swelling and pain to the right side of the scrotum ENDOCRINOLOGIC: poorly controlled DM II with hyperglycemia HEMATOLOGIC: Denies thrombophilia/previous clots, or coagulopathy/bleeding di sorders. ONCOLOGIC: Denies personal history of malignancy. DERMATOLOGIC: redness and swelling to the right richie-scrotum PSYCHIATRIC: Denies any suicidal or homicidal ideation. Denies hallucinations. PHYSICAL EXAM GENERAL APPEARANCE: The patient is awake, alert, and oriented, in no acute cardiopulmonary distress. NEUROLOGICAL: Cranial nerves II-XII grossly intact. Motor is 5/5 in bilateral upper and lower extremities proximal to distal. No sensory deficits. HEENT: Face is symmetric. Pupils are equal and reactive. Extraocular movements are intact. NECK: Supple. No JVD. No thyromegaly. No submental, submandibular, pre-/postauricular, occipital or supraclavicular lymphadenopathy. CHEST: Normal chest expansion. No Telemetry. LUNGS: Absence of any rales, rhonchi or any wheezing. CARDIOVASCULAR: Regular. S1 and S2 normal. No appreciable rubs, murmurs or gallops. ABDOMEN: Soft, nontender, and nondistended. There is no rebound, voluntary guarding, or rigidity. : Tohmas catheter noted draining cloudy urine, significant redness and swelling noted of the scrotum, mild tenderness to palpation EXTREMITIES: No significant swelling noted Vital Signs (last 8hr) Date Time Temp Pulse Resp B/P (MAP) Pulse Ox O2 Delivery O2 Flow Rate FiO2 12/20/24 07:00 98.2 85 20 148/81 95 Room Air 12/20/24 03:50 98.2 82 20 155/80 94 Room Air LABS: Laboratory: Test 12/20/24 06:14 12/20/24 03:53 12/19/24 04:07 12/18/24 13:40 Range/Units Whole Blood Glucose 198 #H 70-110 MG/DL White Blood Count 11.8 H 4.8-10.8 K/uL Red Blood Count 4.03 L 4.50-6.20 MIL/uL Hemoglobin 10.0 L 14.0-18.0 g/dL Hematocrit 32.1 L 42-54 % Mean Corpuscular Volume 79.7 79-99 fL Mean Corpuscular Hemoglobin 24.8 L 27.0-33.0 pg Mean Corpuscular Hemoglobin Concent 31.2 L 32.0-36.0 g/dL Red Cell Distribution Width 13.7 11.0-15.5 % Platelet Count 570 H 130-400 K/uL Mean Platelet Volume 9.5 7.5-10.5 fL Nucleated Red Blood Cells 0.0 0.0-0.19 % Sodium Level 136 136-145 mmol/L Potassium Level 4.3 3.5-5.1 mmol/L Chloride Level 103 101-111 mmol/L Carbon Dioxide Level 27 21-32 mmol/L Blood Urea Nitrogen 47 H 7-18 mg/dL Creatinine 1.5 H 0.5-1.3 mg/dL Glomerular Filtration Rate Calc 57 >90 mL/min Random Glucose 217 H 70-105 mg/dL Uric Acid 7.5 H 2.6-7.2 mg/dL Total Calcium 8.2 L 8.5-10.1 mg/dL Magnesium Level 1.60 L 1.80-2.40 mg/dL Total Bilirubin 0.2 0.2-1.0 mg/dL Aspartate Amino Transf (AST/SGOT) 19 10-37 U/L Alanine Aminotransferase (ALT/SGPT) 20 # 12-78 U/L Alkaline Phosphatase 194 H 50-136 U/L Total Protein 6.8 6.0-8.3 g/dL Albumin 1.5 L 3.5-5.0 g/dL Thyroid Stimulating Hormone (TSH) 3.14 # 0.36-3.74 uIU/mL Immature Granulocyte % (Auto) 0.5 0-1 % Neutrophils (%) (Auto) 61.2 40.0-77.0 % Lymphocytes (%) (Auto) 27.3 21.0-51.0 % Monocytes (%) (Auto) 9.0 3.0-13.0 % Eosinophils (%) (Auto) 1.6 0.0-8.0 % Basophils (%) (Auto) 0.4 0.0-5.0 % Neutrophils # (Auto) 6.9 1.8-7.7 K/uL Lymphocytes # (Auto) 3.1 1.0-4.8 K/uL Monocytes # (Auto) 1.0 0.1-1.0 K/uL Eosinophils # (Auto) 0.18 0.00-0.70 K/uL Basophils # (Auto) 0.04 0.00-0.20 K/uL Absolute Immature Granulocyte (auto 0.06 0-1 K/uL Phosphorus Level 3.3 2.5-4.9 mg/dL Procalcitonin 0.08 0.05-0.5 ng/mL Urine Color LIGHT-ORANGE YELLOW Urine Appearance TURBID CLEAR Urine pH 6.0 5.0-8.0 Urine Specific [place] 1.011 1.001-1.031 Urine Protein 100 H NEGATIVE mg/dL Urine Glucose (UA) NEGATIVE NEGATIVE mg/dL Urine Ketones NEGATIVE NEGATIVE mg/dL Urine Occult Blood MODERATE H NEGATIVE Urine Nitrate NEGATIVE NEGATIVE Urine Bilirubin NEGATIVE NEGATIVE mg/dL Urine Urobilinogen 0.2 0.2-1.0 mg/dL Urine Leukocyte Esterase 500 H NEGATIVE [place]/uL Urine RBC None 0-1 /HPF Urine WBC 0-1 0-1 /HPF Urine Bacteria None None Seen /HPF Current Medications Medications (Trade) Dose Ordered Sig/Gaby Route PRN Reason Start Time Stop Time Status Last Admin Dose Admin Acetaminophen (acetaMINOPHEN) 1,000 mg ONCE IVPB 12/17/24 17:00 12/18/24 18:10 DC 12/17/24 17:11 1,000 MG Aspirin (Aspirin 81mg Ec Tab) 81 mg DAILY PO 12/18/24 09:00 01/17/25 08:59 12/20/24 10:27 81 MG Atorvastatin Calcium (LIPItor 40MG) 40 mg HS PO 12/15/24 21:00 01/14/25 20:59 12/19/24 21:16 40 MG Dextrose (D50w) 50 ml AD PRN IV HYPOGLYCEMIA PROTOCOL 12/15/24 13:30 01/14/25 13:29 Famotidine (Pepcid 20mg Vial) 20 mg DAILY IV 12/16/24 09:00 12/17/24 10:49 DC 12/17/24 08:53 20 MG Ferrous Sulfate (Ferrous Sulfate) 325 mg DAILY PO 12/16/24 09:00 01/15/25 08:59 12/20/24 10:28 325 MG Fluconazole/ Sodium Chloride 100 ml @ 100 mls/hr DAILY IV 12/21/24 09:00 01/20/25 08:59 Glucagon (Glucagon 1mg Kit) 1 mg AD PRN IM HYPOGLYCEMIA PROTOCOL 12/15/24 13:30 01/14/25 13:29 Heparin Sodium (Porcine) (HEParin 5,000 UNIT VIAL) 5,000 unit BID SQ 12/17/24 11:00 01/16/25 10:59 12/20/24 10:27 5,000 UNIT Home Med (Home Medication) (Sennosides/ Docusate Sodium (Colace 2-i... DAILY PO 12/16/24 09:00 01/15/25 08:59 Hydralazine HCl (APRESOLine 20MG INJ) 5 mg Q6H PRN IV ADMINISTER FOR SBP > 160 12/15/24 14:30 01/14/25 14:29 Hydromorphone HCl (DiLAUDid 0.5MG INJ) 0.2 mg Q6H PRN IVP SEVERE PAIN (7-10) 12/15/24 13:30 12/18/24 09:00 DC 12/17/24 04:34 0.2 MG Insulin Glargine (LANtus 100 UNITS/ML 10 ML VIAL) 20 units DAILY SQ 12/16/24 09:00 12/17/24 07:32 DC Insulin Glargine (LANtus 100 UNITS/ML 10 ML VIAL) 20 units HS SQ 12/15/24 21:00 12/16/24 06:19 DC 12/15/24 21:05 20 UNITS Insulin Glargine (LANtus 100 UNITS/ML 10 ML VIAL) 25 units HS SQ 12/15/24 21:00 12/15/24 18:52 DC Insulin Glargine (LANtus 100 UNITS/ML 10 ML VIAL) 50 units DAILY SQ 12/17/24 09:00 01/16/25 08:59 12/20/24 10:26 50 UNITS Insulin Human Regular (humuLIN R 100 UNIT/ML 3ML) 8 unit TIDAC SQ 12/16/24 07:30 12/17/24 07:32 DC 12/17/24 06:59 8 UNIT Insulin Human Regular (humuLIN R 100 UNIT/ML 3ML) 15 unit TIDAC SQ 12/17/24 07:30 8/20/25 07:29 12/20/24 06:43 15 UNIT Insulin Human Regular (humuLIN R 100 UNIT/ML 3ML) INSULIN SLIDING SCAL... ACHS SQ 12/15/24 16:30 12/16/24 06:19 DC 12/15/24 21:03 5 UNIT Insulin Human Regular (humuLIN R 100 UNIT/ML 3ML) INSULIN SLIDING SCAL... ACHS SQ 12/16/24 07:30 01/15/25 07:29 12/19/24 11:33 6 UNIT Leptospermum Honey (iFlipd) 1 APPLICATION ONCE STAT TP 12/19/24 16:04 12/19/24 16:06 DC 12/19/24 16:35 1 APPL Leptospermum Honey (iFlipd) 1 APPL QMOWEFR TP 12/21/24 09:00 01/20/25 08:59 Linezolid 300 ml @ 150 mls/hr Q12H IV 12/15/24 21:00 12/17/24 19:54 DC 12/17/24 08:53 150 MLS/HR Linezolid 300 ml @ 150 mls/hr Q12H IV 12/17/24 21:00 12/19/24 20:59 DC 12/19/24 10:01 150 MLS/HR Magnesium Sulfate 50 ml @ 0 mls/hr PROTOCOL IV 12/20/24 10:00 01/19/25 09:59 12/20/24 10:29 0 MLS/HR Magnesium Sulfate 50 ml @ 0 mls/hr PROTOCOL PRN IV MAGNESIUM PROTOCOL 12/18/24 09:30 12/20/24 09:53 DC 12/18/24 10:42 25 MLS/HR Meropenem (Merrem 1gm) 1 gm Q12H IVPB 12/15/24 16:00 12/17/24 19:54 DC 12/17/24 17:11 1 GM Meropenem (Merrem 1gm) 1 gm Q12H IVPB 12/18/24 04:00 12/20/24 23:00 12/20/24 05:08 1 GM Naloxone HCl (NARcan HCL 1 MG/ ML 2ML SYG) 2 mg ONCE IV 12/17/24 11:00 12/17/24 10:36 DC Pantoprazole Sodium (PROTonix 40MG INJ) 40 mg DAILY IVP 12/18/24 09:00 01/17/25 08:59 12/20/24 10:28 40 MG Pharmacy Profile Note (Pharmacy Communication) 1 each ONCE MISC 12/15/24 13:30 12/15/24 14:18 DC Sodium Bicarbonate 150 meq/Dextrose 1,150 ml @ 50 mls/hr Q23H IVP 12/17/24 11:00 12/18/24 11:36 DC 12/18/24 08:25 50 MLS/HR Sodium Bicarbonate (Sodium Bicarbonate) 650 mg QID PO 12/16/24 13:00 01/15/25 12:59 12/20/24 10:30 650 MG Sodium Chloride 1,000 ml @ 75 mls/hr [id number] IV 12/15/24 13:30 12/17/24 10:49 DC 12/17/24 01:40 75 MLS/HR Tamsulosin HCl (FloMAX) 0.4 mg DAILY PO 12/16/24 09:00 01/15/25 08:59 12/20/24 10:27 0.4 MG Vancomycin HCl 250 ml @ 125 mls/hr Q48H IV 12/17/24 11:00 12/15/24 13:19 DC Vancomycin HCl (Vancomycin Protocol) 1 each AD IV 12/15/24 11:00 12/15/24 23:52 DC Vitamin B Complex/ Vit C/Folic Acid (Nephrovite Tablet) 1 cap DAILY PO 12/16/24 09:00 01/15/25 08:59 12/20/24 10:28 1 CAP DIAGNOSTICS / RADIOLOGY: [ ] ASSESSMENT: Sepsis secondary to complicated urinary tract infection and scrotal cellulitis with abscess, POA Progressive scrotal cellulitis with developing right hemiscrotal abscess, POA status post excisional debridement of necrotic soft tissue from the perineum secondary to 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) Wound culture positive for Irina albicans, Streptococcus agalactiae group B and yeast species Severe complicated urinary tract infection, POA Urinary retention status post Thomas catheter placement, POA Bilateral hydronephrosis, POA Acute kidney injury with underlying history of chronic kidney disease, POA Severe nonketotic hyperglycemia with poorly controlled type 2 diabetes mellitus, POA History of Farxiga use as outpatient, POA Hypertension, POA History of dual antiplatelet therapy with aspirin and Plavix as outpatient, POA History of coronary artery disease with prior history of coronary intervention and stenting, POA History of peripheral arterial disease with history of lower extremity angio plasty and stenting, POA History of TIA, POA Hypertension, POA Hyperlipidemia, POA Debility, POA Right eye blindness, POA Decreased vision of left eye, POA History of iron deficiency anemia, POA History of hospitalization in [facility] for right epididymo-orchitis with abscess requiring surgical drainage,07/2024, POA PLAN: Discharge plan discussed again with case management, still pending insurance approval for the patient to be discharged to LTAC. Per urology recommendation, General surgery was contacted to evaluate for the possibility of rectal fistula, surgical input noted and appreciated, continue conservative management with the wound care for now. Endocrinology input noted and appreciated, continue long- acting as well as short-acting insulin, with the adjustments as needed. NEURO: Minimize central acting medications as possible. Fall Precautions. Well lighted room through the day and minimize interruptions through the night to prevent acute delirium. PULMONARY: Supplemental 02 as needed BiPAP as necessary, for respiratory distress Titrate Fio2 to keep Spo2 > or = 90% DuoNebs and CPT as needed IS hourly while awake for pulmonary hygiene prn Out of bed to chair as tolerated Maintain aspiration precautions at all times CARDIOVASCULAR: Follow hemodynamics. Vital signs per facility protocol GI & NUTRITION: Continue nutritional support Aspirations precautions Prokinetic agents and laxatives as needed KIDNEYS & ELECTROLYTES: Strict monitoring of intake and output Daily weights Avoid nephrotoxic agents Monitor electrolytes and replace as needed Goal urine output of 30mL/hr or 0.5mL/kg/hr Medications to be dosed according to renal function. Avoid contrast if possible ENDOCRINE: Maintain blood glucose between 100-180 at all times. Insulin sliding scale for blood glucose management Hypoglycemia and hyperglycemia protocol in place INFECTIOUS DISEASE: Trend temperature, WBC and procalcitonin level Follow cultures, deescalate antibiotics as soon as possible. Panculture if new onset fever HEMATOLOGY & COAGULATION: Monitor H&H. Keep Hgb > 7 Transfuse 1 unit of PRBC for Hgb < 7 Transfuse 1 pack of platelets of platelets < 20, 000 Watch for any signs and symptoms of bleeding SKIN: Pressure ulcer prevention per facility protocol Specialty mattress as needed ORTHO/REHAB Continue PT/OT PRN: MEDICATIONS Tylenol 650 mg po every 4 hrs for fever zofran 4 mg IV every 6 hrs for n/v Hydralazine 5 mg IV every 4 hrs systolic pressure > 160 bowel regiment: lactulose 20 gm PO BID PRN constipation Supportive measures: Continue GI and DVT prophylaxis Disposition: Pending improvement in clinical condition All questions answered time spent: > 35 min JANET IVAN MD Dec 20, 2024 10:48
--- NOTE | 2024-12-20 11:28 | NUR ---
DCP:HOME Pt currently lives with radha Shetty [phone]. pt does not report insecurities with food, retirement, and/or utilities. Pt does have an electric wheelchair at home that he uses. Pt kan shave a provider that goes "a few hours" that assist him will all ADLs. PCP is Dr Eder Madden and uses [facility] for any RX needs. At [place] pt will go to [facility] ([facility] on chart) Addendum: 12/20/24 at 1131 by ANGEL MISHRA SS Amended: Links added.
--- NOTE | 2024-12-20 13:12 | PN ---
NEPHROLOGY PROGRESS NOTE Date/Time Patient Seen: Dec 20, 2024 SUBJECTIVE: This is a 49-year-old male with a past medical history of diabetes mellitus type 2, hypertension, peripheral arterial disease with left AKA, coronary artery disease, hyperlipidemia, GERD, PAD, and obesity Patient presented to the emergency room for fever and scrotum swelling. Thomas in place due to urinary retention Blood and urine cultures have been collected, pending results Continues on broad-spectrum antibiotics. We have consulted for renal failure. Renal function is improving Electrolytes are stable. UA positive for proteinuria. Hemoglobin noted CT of the abdomen showed severe bilateral hydronephrosis. Marked bladder wall thickening with perivesicular fat stranding Renal ultrasound showed Urinary bladder wall thickening of concern for cystitis. Recommend urine routine. Previously demonstrated bilateral moderate hydroureteronephrosis is not visualized. 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 No surgical intervention for possible rectal fistula Family at the bedside Prognosis remains guarded REVIEW OF SYSTEMS: GENERAL: Positive for fever and scrotum swelling. NEUROLOGIC: Negative for any blurry vision, blind spots, double vision, facial asymmetry, dysphagia, dysarthria, hemiparesis, hemisensory deficits, vertigo, ataxia. HEENT: Negative for any head trauma, neck trauma, neck stiffness, photophobia, phonophobia, sinusitis, rhinitis. CARDIAC: Negative for any chest pain, dyspnea on exertion, paroxysmal nocturnal dyspnea, peripheral edema. PULMONARY: Negative for any shortness of breath, wheezing, COPD, or TB exposure. GASTROINTESTINAL: Negative for any abdominal pain, nausea, vomiting, bright red blood per rectum, melena. GENITOURINARY: Negative for any dysuria, hematuria, incontinence. INTEGUMENTARY: Negative for any rashes, cuts, insect bites. RHEUMATOLOGIC: Negative for any joint pains, photosensitive rashes, history of vasculitis or kidney problems. HEMATOLOGIC: Negative for any abnormal bruising, frequent infections or bleeding. Vital Signs (last 8hr) Date Time Temp Pulse Resp B/P (MAP) Pulse Ox O2 Delivery O2 Flow Rate FiO2 12/20/24 11:00 97.3 80 20 139/80 92 Room Air 12/20/24 08:00 95 Room Air* 0 21 12/20/24 07:00 98.2 85 20 148/81 95 Room Air PHYSICAL EXAM: GENERAL: Alert and oriented x 3. No acute distress. Well-nourished. EYES: EOMI. Anicteric. HENT: Moist mucous membranes. No scleral icterus. No cervical lymphadenopathy. LUNGS: Clear to auscultation bilaterally. No accessory muscle use. CARDIOVASCULAR: Regular rate and rhythm. No murmur. No JVD. ABDOMEN: Soft, non-tender and non-distended. No palpable masses. EXTREMITIES: No edema. Non-tender. SKIN: No rashes or lesions. Warm. NEUROLOGIC: No focal neurological deficits. CN II-XII grossly intact, but not individually tested. PSYCHIATRIC: Cooperative. Appropriate mood and affect. Current Medications Medications (Trade) Dose Ordered Sig/Gaby Route Start Time Stop Time Status Last Admin Dose Admin Atorvastatin Calcium (LIPItor 40MG) 40 mg HS PO 12/15/24 21:00 01/14/25 20:59 12/15/24 21:05 40 MG Famotidine (Pepcid 20mg Vial) 20 mg DAILY IV 12/16/24 09:00 01/15/25 08:59 12/16/24 09:12 20 MG Ferrous Sulfate (Ferrous Sulfate) 325 mg DAILY PO 12/16/24 09:00 01/15/25 08:59 Home Med (Home Medication) (Sennosides/ Docusate Sodium (Colace 2-i... DAILY PO 12/16/24 09:00 01/15/25 08:59 Insulin Glargine (LANtus 100 UNITS/ML 10 ML VIAL) 20 units DAILY SQ 12/16/24 09:00 01/14/25 20:59 Insulin Glargine (LANtus 100 UNITS/ML 10 ML VIAL) 20 units HS SQ 12/15/24 21:00 12/16/24 06:19 DC 12/15/24 21:05 20 UNITS Insulin Glargine (LANtus 100 UNITS/ML 10 ML VIAL) 25 units HS SQ 12/15/24 21:00 12/15/24 18:52 DC Insulin Human Regular (humuLIN R 100 UNIT/ML 3ML) 8 unit TIDAC SQ 12/16/24 07:30 01/15/25 07:29 Insulin Human Regular (humuLIN R 100 UNIT/ML 3ML) INSULIN SLIDING SCAL... ACHS SQ 12/15/24 16:30 12/16/24 06:19 DC 12/15/24 21:03 5 UNIT Insulin Human Regular (humuLIN R 100 UNIT/ML 3ML) INSULIN SLIDING SCAL... ACHS SQ 12/16/24 07:30 01/15/25 07:29 Linezolid 300 ml @ 150 mls/hr Q12H IV 12/15/24 21:00 12/17/24 20:59 12/16/24 09:12 150 MLS/HR Meropenem (Merrem 1gm) 1 gm Q12H IVPB 12/15/24 16:00 12/17/24 23:00 12/16/24 06:02 1 GM Pharmacy Profile Note (Pharmacy Communication) 1 each ONCE MISC 12/15/24 13:30 12/15/24 14:18 DC Sodium Chloride 1,000 ml @ 75 mls/hr [id number] IV 12/15/24 13:30 01/14/25 13:29 12/16/24 02:42 75 MLS/HR Tamsulosin HCl (FloMAX) 0.4 mg DAILY PO 12/16/24 09:00 01/15/25 08:59 Vancomycin HCl 250 ml @ 125 mls/hr Q48H IV 12/17/24 11:00 12/15/24 13:19 DC Vancomycin HCl (Vancomycin Protocol) 1 each AD IV 12/15/24 11:00 12/15/24 23:52 DC Vitamin B Complex/ Vit C/Folic Acid (Nephrovite Tablet) 1 cap DAILY PO 12/16/24 09:00 01/15/25 08:59 LABORATORY: [ ] Hematology Labs: Test 12/20/24 03:53 12/19/24 04:07 Range/Units White Blood Count 11.8 H 4.8-10.8 K/uL Red Blood Count 4.03 L 4.50-6.20 MIL/uL Hemoglobin 10.0 L 14.0-18.0 g/dL Hematocrit 32.1 L 42-54 % Mean Corpuscular Volume 79.7 79-99 fL Mean Corpuscular Hemoglobin 24.8 L 27.0-33.0 pg Mean Corpuscular Hemoglobin Concent 31.2 L 32.0-36.0 g/dL Red Cell Distribution Width 13.7 11.0-15.5 % Platelet Count 570 H 130-400 K/uL Mean Platelet Volume 9.5 7.5-10.5 fL Nucleated Red Blood Cells 0.0 0.0-0.19 % Immature Granulocyte % (Auto) 0.5 0-1 % Neutrophils (%) (Auto) 61.2 40.0-77.0 % Lymphocytes (%) (Auto) 27.3 21.0-51.0 % Monocytes (%) (Auto) 9.0 3.0-13.0 % Eosinophils (%) (Auto) 1.6 0.0-8.0 % Basophils (%) (Auto) 0.4 0.0-5.0 % Neutrophils # (Auto) 6.9 1.8-7.7 K/uL Lymphocytes # (Auto) 3.1 1.0-4.8 K/uL Monocytes # (Auto) 1.0 0.1-1.0 K/uL Eosinophils # (Auto) 0.18 0.00-0.70 K/uL Basophils # (Auto) 0.04 0.00-0.20 K/uL Absolute Immature Granulocyte (auto 0.06 0-1 K/uL Chemistry Labs: Test 12/20/24 10:42 12/20/24 03:53 12/19/24 04:07 Range/Units Whole Blood Glucose 231 H 70-110 MG/DL Sodium Level 136 136-145 mmol/L Potassium Level 4.3 3.5-5.1 mmol/L Chloride Level 103 101-111 mmol/L Carbon Dioxide Level 27 21-32 mmol/L Blood Urea Nitrogen 47 H 7-18 mg/dL Creatinine 1.5 H 0.5-1.3 mg/dL Glomerular Filtration Rate Calc 57 >90 mL/min Random Glucose 217 H 70-105 mg/dL Uric Acid 7.5 H 2.6-7.2 mg/dL Total Calcium 8.2 L 8.5-10.1 mg/dL Magnesium Level 1.60 L 1.80-2.40 mg/dL Total Bilirubin 0.2 0.2-1.0 mg/dL Aspartate Amino Transf (AST/SGOT) 19 10-37 U/L Alanine Aminotransferase (ALT/SGPT) 20 # 12-78 U/L Alkaline Phosphatase 194 H 50-136 U/L Total Protein 6.8 6.0-8.3 g/dL Albumin 1.5 L 3.5-5.0 g/dL Thyroid Stimulating Hormone (TSH) 3.14 # 0.36-3.74 uIU/mL Phosphorus Level 3.3 2.5-4.9 mg/dL Procalcitonin 0.08 0.05-0.5 ng/mL DIAGNOSTICS / RADIOLOGY: [facility] [address] [place] [address] IMAGING REPORT Signed PATIENT: ASHA SUERO MR#: [id number] : 1975 SEX: M AGE: 49 LOCATION: 2CH ORDER 1 [facility]US: [facility] REPORT#: [id number] SERVICE 6 REASON: R/O STROKE ORDERING PHYSICIAN: ZARI JORDAN APRN PROCEDURE: MRA NECKWO - MR ANGIO NECK WO CON EXAM: MRA Neck without Intravenous Contrast. CLINICAL HISTORY: R/O STROKE TECHNIQUE: Magnetic resonance angiography images of the neck without intravenous contrast. Three-dimensional MIP reformations performed. COMPARISON: Ultrasound exam from December 17, 2024. FINDINGS: INTERNAL CAROTID ARTERIES: No significant stenosis based on NASCET criteria. COMMON CAROTID ARTERIES: No significant stenosis. No dissection. EXTERNAL CAROTID ARTERIES: No occlusion or dissection. VERTEBRAL ARTERIES: No significant stenosis. No dissection. BASILAR ARTERY: No significant stenosis. No dissection. SOFT TISSUES Unremarkable as visualized. IMPRESSION: No hemodynamically significant stenosis appreciated. /[place] DICTATED BY: ALICE LEARY Jr., MD DATE: 12/17/241653 ELECTRONICALLY SIGNED BY: ALICE LEARY Jr., MD DATE: 12/17/241653 PATIENT: ASHA SUERO MR#: [id number] : 1975 SEX: M AGE: 49 LOCATION: 2CH ORDER 1 STATUS: ADM IN [facility] REPORT#: [id number] SERVICE 6 REASON: EVALUATE CARDIAC FUNCTION ORDERING PHYSICIAN: ZARI JORDAN APRN PROCEDURE: ECHO CMP - ECHO 2-D COMPLETE APPROVED REPORT EXAM: Two-dimensional and M-mode echocardiogram with Doppler and color Doppler. INDICATION ICD: Evalute cardiac function 2D Dimensions RVDd 4.0 cm LVEF(%) 44.4 (>50%) LVED Vol(simp.) 176.0 mL IVSd 0.9 (0.7-1.1cm) FS(%) 22 % LVES Vol(simp.) 110.0 mL LVDd 5.4 (3.8-5.6cm) LA (2D) 2.1 (1.6-4.0cm) LVEF(%, simp.) 37 % PWd 1.0 (0.7-1.1cm) Ao Root(2D) 2.6 (2.0-3.7cm) LA ESV INDEX (BP) 37. 59 mL/m2 LVDs 4.2 (2.5-4.0cm) LVOT diam 2.5 (1.8-2.4cm) IVC diam 2.0 cm Deformation Strain Apical 4 -9.4 % Apical 2 -13.7 % Apical 3 -10.7 % Global Strain -11.3 % M-Mode Dimensions EPSS 1.7 cm LA (MM) 2.9 (1.6-4.0cm) Ao Root(MM) 2.6 (2.0-3.7cm) Aortic Valve AoV Vmax 0.9 m/s Ao Peak GR 3.1 mmHg LVOT Vmax 0.8 m/s AoV VTI 0.2 m Ao Mean GR 1.8 mmHg LVOT VTI 0.17 m CULLEN (VMAX) 4.18 cm2 CULLEN (VTI) 4.2 cm2 Mitral Valve MV E Vmax 64.6 cm/s DECEL Time 195 ms MV A Vmax 66.0 cm/s P 1/2 T 87 ms E/A ratio 1.0 MVA (PHT) 2.5 cm2 TDI E/E' Medial 10.5 E/E' Lateral 5.6 Medial E' Peak V 6.14 cm/s Lateral E' Peak V 11.44 cm/s Pulmonary Valve PV Vmax 0.8 m/s PV VTI 0.20 m PV Mean GR 1.3 mmHg PV Peak GR 2.4 mmHg Tricuspid Valve RAP (EST) 8 mmHg RVSP 8.0 mmHg Left Ventricle Left ventricle is normal in size. The apical anterior lateral, inferolateral carrillo are severely hypokinetic. The apical inferior wall is thin, scarred and akinetic. The other carrillo are grossly normal. There is normal left ventricular wall thickness. Left ventricle systolic function is moderately depressed, estimated LVEF 40%. Indeterminate diastolic dysfunction. Right Ventricle The right ventricle is normal size. The right ventricular systolic function is normal. Atria The left atrium is mildly dilated, 38ml/m2. The right atrium size is normal. Aortic Valve Aortic valve is trileaflet. No aortic regurgitation is present. There is no aortic valvular stenosis. Mitral Valve The mitral valve is normal in structure. The leaflets are mildly thickened. Trace mitral regurgitation. There is no mitral valve stenosis. Tricuspid Valve The tricuspid valve is normal in structure. Trace tricuspid regurgitation. RVSP is normal. Pulmonic Valve Pulmonic valve is not well visualized. Great Vessels The aortic root is normal in size. The IVC is normal in size and collapses <50% with inspiration. Pericardium There is no pericardial effusion. Other Information Quality : Technically difficult study due to body habitus Conclusion Technically limited study with poor imaging windows. The left atrium is mildly dilated, 38ml/m2. There is normal left ventricular wall thickness. The apical anterior lateral, inferolateral carrillo are severely hypokinetic. The apical inferior wall is thin, scarred and akinetic. The other carrillo are grossly normal. Left ventricle systolic function is moderately depressed, estimated LVEF 40%. Indeterminate diastolic dysfunction. Trace mitral regurgitation. Trace tricuspid regurgitation. PASP is normal. There is no pericardial effusion. Recommend repeating an echocardiogram with Definity contrast to assess wall motion and LVEF. DICTATED BY: VEE BARILLAS MD DATE: 12/17/24 1447 ELECTRONICALLY SIGNED BY: VEE BARILLAS MD DATE: 12/17/24 2688 PATIENT: ASHA SUERO MR#: [id number] : 1975 SEX: M AGE: 49 LOCATION: 2CH ORDER 1 STATUS: [facility] REPORT#: [id number] SERVICE 0917 REASON: EVALUATE S/S STROKE ORDERING PHYSICIAN: ZARI JORDAN APRN PROCEDURE: CAROTID - US CAROTID DUPLEX EXAM: US Duplex Bilateral Carotid and Vertebral Arteries. CLINICAL HISTORY: EVALUATE S/S STROKE TECHNIQUE: Real-time ultrasound scan of the bilateral carotid and vertebral arteries, 2-D grayscale, with color Doppler flow and spectral waveform analysis. COMPARISON: None provided. FINDINGS: RIGHT COMMON CAROTID ARTERY: PSV???77 cm/sec, no occlusion or significant stenosis. RIGHT INTERNAL CAROTID ARTERY: PSV???96 cm/sec, no occlusion or significant stenosis. RIGHT EXTERNAL CAROTID ARTERY: PSV- 64 cm/sec, no occlusion or significant stenosis. RIGHT VERTEBRAL ARTERY: Antegrade flow. PSV 62 cm/sec RIGHT ICA/CCA RATIO: 1.2 Within normal limits. LEFT COMMON CAROTID ARTERY: PSV- 85 cm/sec, no occlusion or significant stenosis. Soft tissue plaque in proximal CCA. LEFT INTERNAL CAROTID ARTERY: PSV- 55 cm/sec, no occlusion or significant stenosis. LEFT EXTERNAL CAROTID ARTERY: PSV -86 cm/sec No occlusion or significant stenosis. LEFT VERTEBRAL ARTERY: Antegrade flow. PSV 37 cm/sec LEFT ICA/CCA RATIO: 0.6 Within normal limits. SOFT TISSUES: No incidental abnormalities. IMPRESSION: 1. No hemodynamically significant stenosis in bilateral carotid or vertebral arteries. /[place] DICTATED BY: ALICE LEARY Jr., MD DATE: 12/17/241219 ELECTRONICALLY SIGNED BY: ALICE LEARY Jr., MD DATE: 12/17/241219 PATIENT: ASHA SUERO MR#: [id number] : 1975 SEX: M AGE: 49 LOCATION: 2CH ORDER 0909 STATUS: ADM IN REPORT#: [id number] SERVICE 0908 REASON: S ORDERING PHYSICIAN: JANET IVAN MD PROCEDURE: HEAD WO - CT HEAD/BRAIN W/O CONTRAST ADDENDUM REPORT ADDENDUM: Results were shared by telephone at 11:10 am on 12/17/24 and acknowledged by Isaias Robb /[place] EXAM: Non-contrast CT examination of the Brain CLINICAL HISTORY: Rule out stroke. Altered mental status. TECHNIQUE: Thin collimated axial CT images of the brain were obtained, with sagittal and coronal reformatted images also submitted. CT scan done according to ALARA (As Low as Reasonably Achievable). CONTRAST USED: None. COMPARISON: Prior CT brain dated 02/02/23. FINDINGS: No acute intracranial abnormality is present. No acute cortical infarction, hemorrhage, mass, or mass effect. Mild generalized cerebral atrophy. No hydrocephalus or abnormal extra-axial fluid collections. Stable encephalomalacia in the bilateral inferior cerebellar hemispheres. The skull base and calvarium are intact. The mastoid air cells are clear. Mucosal disease in the visualized right maxillary sinus. IMPRESSION: No acute intracranial abnormality is present. Stable encephalomalacia in the bilateral inferior cerebellar hemispheres suggesting sequelae of prior insult. No significant interval change. /[place] DICTATED BY: ALICE LEARY Jr., MD DATE: 12/17/24 1112 ELECTRONICALLY SIGNED BY: DATE: EXAM: Non-contrast CT examination of the Brain CLINICAL HISTORY: Rule out stroke. Altered mental status. TECHNIQUE: Thin collimated axial CT images of the brain were obtained, with sagittal and coronal reformatted images also submitted. CT scan done according to ALARA (As Low as Reasonably Achievable). CONTRAST USED: None. COMPARISON: Prior CT brain dated 02/02/23. FINDINGS: No acute intracranial abnormality is present. No acute cortical infarction, hemorrhage, mass, or mass effect. Mild generalized cerebral atrophy. No hydrocephalus or abnormal extra-axial fluid collections. Stable encephalomalacia in the bilateral inferior cerebellar hemispheres. The skull base and calvarium are intact. The mastoid air cells are clear. Mucosal disease in the visualized right maxillary sinus. IMPRESSION: No acute intracranial abnormality is present. Stable encephalomalacia in the bilateral inferior cerebellar hemispheres suggesting sequelae of prior insult. No significant interval change. /[place] DICTATED BY: ALICE LEARY Jr., MD DATE: 12/17/241053 ELECTRONICALLY SIGNED BY: ALICE LEARY Jr., MD DATE: 12/17/241053 PATIENT: ASHA SUERO MR#: [id number] : 1975 SEX: M AGE: 49 LOCATION: 2DH ORDER 28 STATUS: ADM IN REPORT#: [id number] SERVICE 28 REASON: renal failure ORDERING PHYSICIAN: JANET IVAN MD PROCEDURE: RENAL - US RENAL SONOGRAM EXAMINATION: ULTRASOUND OF THE RETROPERITONEUM. CLINICAL HISTORY: Renal failure. COMPARISON: CT abdomen and pelvis without contrast dated 12/15/2024. TECHNIQUE: Real-time grayscale ultrasound images of the kidneys. FINDINGS: The kidneys are normal in caliber, the right kidney measures 11.9 x 5.0 x 7.8 cm and the left kidney measures 13.0 x 7.6 x 3.8 cm in its craniocaudal, AP, and transverse dimensions respectively. There is normal renal cortical thickness, and cortical echogenicity. There is no renal calculus or hydronephrosis. The urinary bladder is empty with Thomas???s bulb. There is wall thickening (0.6 cm). IMPRESSION: Urinary bladder wall thickening of concern for cystitis. Recommend urine routine. Previously demonstrated bilateral moderate hydroureteronephrosis is not visualized. /[place] DICTATED BY: ALICE LEARY Jr., MD DATE: 12/17/24943 ELECTRONICALLY SIGNED BY: ALICE LEARY Jr., MD DATE: 12/17/24943 PATIENT: ASHA SUERO MR#: [id number] : 1975 SEX: M AGE: 49 LOCATION: EDHIP ORDER 1041 STATUS: ADM IN REPORT#: [id number] SERVICE 1040 REASON: urinary retention, testicular swelling wo per provider ORDERING PHYSICIAN: NYLA MORALES PROCEDURE: ABD PEL WO - CT ABDOMEN/PELVIS W/O CONTRAST EXAM: CT Abdomen and Pelvis Without IV contrast CLINICAL HISTORY: urinary retention, testicular swelling wo per provider TECHNIQUE: Axial computed tomography images of the abdomen and pelvis without intravenous contrast. CONTRAST: No IV contrast. COMPARISON: Stuy dated 02/08/23 FINDINGS: LUNG BASES: There are atelectatic bands within the bilateral lower lobes. LIVER: Unremarkable. GALLBLADDER AND BILE DUCTS: Post cholecystectomy status with surgical clips in situ. PANCREAS: Unremarkable. SPLEEN: Unremarkable. ADRENAL GLANDS: Unremarkable. KIDNEYS, URETERS, AND BLADDER: There is marked concentric bladder wall thickening, more pronounced posteriorly, with perivesicular fat stranding likely reflecting cystitis. There is reflux within the bilateral ureters resulting in severe bilateral hydronephrosis and also bilateral perinephric fat stranding reflecting pyelonephritis. There is no radiopaque calculus appreciated. STOMACH AND BOWEL: Unremarkable appearance of the stomach and bowel. No evidence of bowel obstruction. No evidence suggesting enteritis or colitis. APPENDIX: No evidence of acute appendicitis on CT examination. PERITONEUM: Small 7 mm fat-containing umbilical hernia. LYMPH NODES: No lymphadenopathy is evident. REPRODUCTIVE: A well-defined hypodense collection along the right penoscrotal region, measuring 6 x 5.1 cm, concerning for abscess. VASCULATURE: Atherosclerotic changes of the abdominal aorta. BONES: No aggressive appearing osseous lesion. No acute osseous pathology evident. IMPRESSION: 1. Severe bilateral hydronephrosis with pyelonephritis and perinephric fat stranding. 2. Marked bladder wall thickening with perivesicular fat stranding, compatible with cystitis. 3. 6 x 5.1 cm right penoscrotal hypodense collection, concerning for abscess. /[place] DICTATED BY: ALICE LEARY Jr., MD DATE: 12/15/24 1451 ELECTRONICALLY SIGNED BY: ALICE LEARY Jr., MD DATE: 12/15/24 1459 PATIENT: ASHA SUERO MR#: [id number] : 1975 SEX: M AGE: 49 LOCATION: EDH ORDER 1036 STATUS: REG ER REPORT#: [id number] SERVICE 1032 REASON: SEPSIS ORDERING PHYSICIAN: NYLA MORALES PROCEDURE: CXR1VW - CHEST 1VW EXAM: CR Chest, 1 View. CLINICAL HISTORY: SEPSIS COMPARISON: None provided. FINDINGS: LUNGS: There is no mass, infiltrate, or acute pulmonary abnormality. Mild bibasilar atelectasis. PLEURAL SPACES: No pleural effusion or pneumothorax. MEDIASTINUM: The cardiomediastinal silhouette is within normal limits. BONES: No acute osseous abnormality. IMPRESSION: No acute cardiopulmonary pathology is evident. /[place] DICTATED BY: ALICE LEARY Jr., MD DATE: 12/15/24 1349 ELECTRONICALLY SIGNED BY: ALICE LEARY Jr., MD DATE: 12/15/24 134 PATIENT: ASHA SUERO MR#: [id number] : 1975 SEX: M AGE: 49 LOCATION: EDH ORDER 1015 STATUS: REG ER REPORT#: [id number] SERVICE 1013 REASON: TESTICULAR PAIN/SWELLING ORDERING PHYSICIAN: NYLA MORALES PROCEDURE: SCROTUM - US SCROTUM & CONTENTS ADDENDUM REPORT ADDENDUM: Results were shared by telephone at 13:33 pm on 12-15-24 and acknowledged by Nyla Ordonez /Eastern EXAM: US Scrotum. CLINICAL HISTORY: TESTICULAR PAIN/SWELLING TECHNIQUE: Real-time ultrasound of the scrotum with color Doppler and image documentation. COMPARISON: Study dated 07/29. FINDINGS: RIGHT TESTICLE: Normal in size (3.3 cm x 1.5 cm x 2.4 cm) and echogenicity, no abnormal mass. Mildly reduced Doppler flow. LEFT TESTICLE: Normal in size (3.6 cm x 1.4 cm x 2.1 cm) and echogenicity, no abnormal mass. Normal Doppler flow. EPIDIDYMIDES: Within normal limits in size and vascularity. A 3 x 3 x 3 mm cyst along the head of the right epididymis. SCROTUM: There is significant improvement of previously documented abscess measuring 2.5 x 2.2 cm along the right scrotal wall (6 mm). No hydrocele, varicocele seen. IMPRESSION: 1. Scrotal wall abscess along the right side, measuring 2.5 x 2.2 cm, showing significant improvement/reduction in size. 2. Mildly reduced blood flow to the right testicle. Clinical correlation is advised for possible intermittent right testicular torsion. /[place] DICTATED BY: ALICE LEARY Jr., MD DATE: 12/15/24 1339 ELECTRONICALLY SIGNED BY: DATE: EXAM: US Scrotum. CLINICAL HISTORY: TESTICULAR PAIN/SWELLING TECHNIQUE: Real-time ultrasound of the scrotum with color Doppler and image documentation. COMPARISON: Study dated 07/29. FINDINGS: RIGHT TESTICLE: Normal in size (3.3 cm x 1.5 cm x 2.4 cm) and echogenicity, no abnormal mass. Mildly reduced Doppler flow. LEFT TESTICLE: Normal in size (3.6 cm x 1.4 cm x 2.1 cm) and echogenicity, no abnormal mass. Normal Doppler flow. EPIDIDYMIDES: Within normal limits in size and vascularity. A 3 x 3 x 3 mm cyst along the head of the right epididymis. SCROTUM: There is significant improvement of previously documented abscess measuring 2.5 x 2.2 cm along the right scrotal wall (6 mm). No hydrocele, varicocele seen. IMPRESSION: 1. Scrotal wall abscess along the right side, measuring 2.5 x 2.2 cm, showing significant improvement/reduction in size. 2. Mildly reduced blood flow to the right testicle. Clinical correlation is advised for possible intermittent right testicular torsion. /[place] DICTATED BY: ALICE LEARY Jr., MD DATE: 12/15/241323 ELECTRONICALLY SIGNED BY: ALICE LEARY Jr., MD DATE: 12/15/24 132 ASSESSMENT: Acute on chronic renal failure Nephrotic syndrome Anemia Severe bilateral hydronephrosis with pyelonephritis Sepsis Progressive scrotal cellulitis with developing right hemiscrotum abscess Severe complicated urinary tract infection Urinary retention S/p Thomas catheter Electrolyte derangement Coronary artery disease Uncontrolled Diabetes mellitus type 2 Hyperlipidemia Hypertension PAD S/p left AKA Severe protein calorie malnutrition Obesity Debility Right eye blindness Decreased vision of left eye PLAN: Labs, diagnostic, radiologic exams reviewed and interpreted by myself and supervising physician. We have reviewed external records in detail Continue with the antibiotics as per ID Require close monitoring of renal function and electrolytes Order CBC, CMP, and electrolytes in am BiPAP as necessary, for respiratory distress Monitor blood pressure adjust medication doses as needed Avoid hypotensive episodes May use Dilaudid 0.5 mg IV every 6 hours as needed for severe pain Monitor blood sugars Strict intake, output, and daily weight should be monitored Please renally adjust medications Avoid nephrotoxic and nonsteroidal drugs Avoid contrast if possible Will continue to monitor renal function, anemia, electrolytes Treatment plan discussed with patient Questions were answered We have discussed with the other team physicians in detail about the care plan We will continue to monitor the patient closely ATTESTATION BY PHYSICIAN I have seen and examined the patient. I reviewed the documentation, medical decision making, and treatment plan as noted by the mid-level provider above. I agree with the findings and plan of care. KRUPA MANDEL MD, [facility] Dec 20, 2024 13:12
--- NOTE | 2024-12-20 15:12 | PN ---
This is a 49-year-old male consulted to surgery for concerns of rectal fistula status post perineal abscess incision and drainage and debridement Interval history: This 49-year-old male seen in his room resting Wound VAC placed today WBCs 11.8 with a hemoglobin of 10 Case management working on potential LTAC placement Physical exam General: Awake alert and oriented Heart: Regular rate and rhythm} Lungs: Clear to auscultation no distress Abdomen: [Soft, nontender, nondistended Wound VAC in place unable to perform exam to perineal rectal region Assessment : This is a 41-year-old male with concerns of rectal fistula Plan: At this point in time Dr. Dillon to speak with urology for potential recommendations Patient may require diverting colostomy Continue with wound care wound VAC management and scheduled Continue with the IV fluids and IV antibiotics Surgical team to follow patient closely Vitals/Labs Vital Signs Date Time Temp Pulse Resp B/P (MAP) Pulse Ox O2 Delivery O2 Flow Rate FiO2 12/20/24 11:00 97.3 80 20 139/80 92 Room Air 12/20/24 08:00 0 21 Laboratory Tests 12/20/24 03:53 Medications Current Medications Acetaminophen 1,000 mg ONCE ONCE PO Last administered on 12/15/24at 11:13; Start 12/15/24 at 11:00; Stop 12/15/24 at 11:01; Status DC Sodium Chloride 1,000 ml @ 0 mls/hr ONCE ONCE IV Last administered on 12/15/24at 11:33; Start 12/15/24 at 11:00; Stop 12/15/24 at 11:01; Status DC Vancomycin HCl 1 each AD IV; Start 12/15/24 at 11:00; Stop 12/15/24 at 23:52; Status DC Cefepime HCl 1 gm ONCE ONCE IVPB Last administered on 12/15/24at 11:37; Start 12/15/24 at 11:00; Stop 12/15/24 at 11:01; Status DC Vancomycin HCl 250 ml @ 125 mls/hr ONCE ONCE IV Last administered on 12/15/24at 11:51; Start 12/15/24 at 11:00; Stop 12/15/24 at 12:59; Status DC Insulin Human Regular 10 unit ONCE ONCE IV Last administered on 12/15/24at 11:48; Start 12/15/24 at 11:30; Stop 12/15/24 at 11:31; Status DC Vancomycin HCl 250 ml @ 125 mls/hr Q48H IV; Start 12/17/24 at 11:00; Stop 12/15/24 at 13:19; Status DC Insulin Human Regular INSULIN SLIDING SCAL... ACHS SQ Last administered on 12/15/24at 21:03; Start 12/15/24 at 16:30; Stop 12/16/24 at 06:19; Status DC Dextrose 50 ml AD PRN IV; Start 12/15/24 at 13:30; Stop 01/14/25 at 13:29 Glucagon 1 mg AD PRN IM; Start 12/15/24 at 13:30; Stop 01/14/25 at 13:29 Pharmacy Profile Note 1 each ONCE MISC; Start 12/15/24 at 13:30; Stop 12/15/24 at 14:18; Status DC Atorvastatin Calcium 40 mg HS PO Last administered on 12/19/24at 21:16; Start 12/15/24 at 21:00; Stop 01/14/25 at 20:59 Tamsulosin HCl 0.4 mg DAILY PO Last administered on 12/20/24at 10:27; Start 12/16/24 at 09:00; Stop 01/15/25 at 08:59 Ferrous Sulfate 325 mg DAILY PO Last administered on 12/20/24at 10:28; Start 12/16/24 at 09:00; Stop 01/15/25 at 08:59 Home Med (Sennosides/ Docusate Sodium (Colace 2-i... DAILY PO; Start 12/16/24 at 09:00; Stop 01/15/25 at 08:59 Sodium Chloride 1,000 ml @ 75 mls/hr [id number] IV Last administered on 12/17/24at 01:40; Start 12/15/24 at 13:30; Stop 12/17/24 at 10:49; Status DC Hydromorphone HCl 0.2 mg Q6H PRN IVP Last administered on 12/17/24at 04:34; Start 12/15/24 at 13:30; Stop 12/18/24 at 09:00; Status DC Famotidine 20 mg DAILY IV Last administered on 12/17/24at 08:53; Start 12/16/24 at 09:00; Stop 12/17/24 at 10:49; Status DC Sodium Chloride 500 ml @ 0 mls/hr ONCE ONCE IV Last administered on 12/15/24at 15:13; Start 12/15/24 at 14:30; Stop 12/15/24 at 14:31; Status DC Hydralazine HCl 5 mg Q6H PRN IV; Start 12/15/24 at 14:30; Stop 01/14/25 at 14:29 Meropenem 1 gm Q12H IVPB Last administered on 12/17/24at 17:11; Start 12/15/24 at 16:00; Stop 12/17/24 at 19:54; Status DC Linezolid 300 ml @ 150 mls/hr Q12H IV Last administered on 12/17/24at 08:53; Start 12/15/24 at 21:00; Stop 12/17/24 at 19:54; Status DC Vitamin B Complex/ Vit C/Folic Acid 1 cap DAILY PO Last administered on 12/20/24at 10:28; Start 12/16/24 at 09:00; Stop 01/15/25 at 08:59 Insulin Glargine 25 units HS SQ; Start 12/15/24 at 21:00; Stop 12/15/24 at 18:52; Status DC Insulin Glargine 20 units HS SQ Last administered on 12/15/24at 21:05; Start 12/15/24 at 21:00; Stop 12/16/24 at 06:19; Status DC Insulin Glargine 20 units DAILY SQ; Start 12/16/24 at 09:00; Stop 12/17/24 at 07:32; Status DC Insulin Human Regular 8 unit TIDAC SQ Last administered on 12/17/24at 06:59; Start 12/16/24 at 07:30; Stop 12/17/24 at 07:32; Status DC Insulin Human Regular INSULIN SLIDING SCAL... ACHS SQ Last administered on 12/20/24at 12:39; Start 12/16/24 at 07:30; Stop 01/15/25 at 07:29 Sodium Bicarbonate 650 mg QID PO Last administered on 12/20/24at 12:40; Start 12/16/24 at 13:00; Stop 01/15/25 at 12:59 Sodium Bicarbonate 50 meq ONCE ONCE IV Last administered on 12/16/24at 12:34; Start 12/16/24 at 12:00; Stop 12/16/24 at 12:05; Status DC Dexamethasone Sodium Phosphate 4 mg STK-MED ONCE .ROUTE; Start 12/16/24 at 15:54; Stop 12/16/24 at 16:00; Status DC Lidocaine HCl 5 ml STK-MED ONCE .ROUTE; Start 12/16/24 at 15:54; Stop 12/16/24 at 16:00; Status DC Midazolam HCl 2 mg STK-MED ONCE .ROUTE; Start 12/16/24 at 15:55; Stop 12/16/24 at 16:00; Status DC Propofol 200 mg STK-MED ONCE IV; Start 12/16/24 at 15:55; Stop 12/16/24 at 16:00; Status DC Succinylcholine Chloride 200 mg STK-MED ONCE .ROUTE; Start 12/16/24 at 15:55; Stop 12/16/24 at 16:00; Status DC Ondansetron HCl 4 mg STK-MED ONCE .ROUTE; Start 12/16/24 at 15:55; Stop 12/16/24 at 16:00; Status DC Rocuronium [place] 50 mg STK-MED ONCE .ROUTE; Start 12/16/24 at 15:55; Stop 12/16/24 at 16:00; Status DC Fentanyl Citrate 100 mcg STK-MED ONCE .ROUTE; Start 12/16/24 at 15:55; Stop 12/16/24 at 16:00; Status DC Insulin Glargine 50 units DAILY SQ Last administered on 12/20/24at 10:26; Start 12/17/24 at 09:00; Stop 01/16/25 at 08:59 Insulin Human Regular 15 unit TIDAC SQ Last administered on 12/20/24at 12:40; Start 12/17/24 at 07:30; Stop 01/16/25 at 07:29 Naloxone HCl 2 mg ONCE IV; Start 12/17/24 at 11:00; Stop 12/17/24 at 10:36; Status DC Naloxone HCl 2 mg ONCE ONCE IV; Start 12/17/24 at 11:00; Stop 12/17/24 at 11:01; Status DC Heparin Sodium (Porcine) 5,000 unit BID SQ Last administered on 12/20/24at 10:27; Start 12/17/24 at 11:00; Stop 01/16/25 at 10:59 Pantoprazole Sodium 40 mg DAILY IVP Last administered on 12/20/24at 10:28; Start 12/18/24 at 09:00; Stop 01/17/25 at 08:59 Sodium Bicarbonate 150 meq/Dextrose 1,150 ml @ 50 mls/hr Q23H IVP Last administered on 12/18/24at 08:25; Start 12/17/24 at 11:00; Stop 12/18/24 at 11:36; Status DC Aspirin 81 mg DAILY PO Last administered on 12/20/24at 10:27; Start 12/18/24 at 09:00; Stop 01/17/25 at 08:59 Acetaminophen 1,000 mg ONCE IVPB Last administered on 12/17/24at 17:11; Start 12/17/24 at 17:00; Stop 12/18/24 at 18:10; Status DC Linezolid 300 ml @ 150 mls/hr Q12H IV Last administered on 12/19/24at 10:01; Start 12/17/24 at 21:00; Stop 12/19/24 at 20:59; Status DC Meropenem 1 gm Q12H IVPB Last administered on 12/20/24at 05:08; Start 12/18/24 at 04:00; Stop 12/20/24 at 23:00 Magnesium Sulfate 50 ml @ 0 mls/hr PROTOCOL PRN IV Last administered on 12/18/24at 10:42; Start 12/18/24 at 09:30; Stop 12/20/24 at 09:53; Status DC Leptospermum Honey 1 APPLICATION ONCE STAT TP Last administered on 12/19/24at 16:35; Start 12/19/24 at 16:04; Stop 12/19/24 at 16:06; Status DC Leptospermum Honey 1 APPL [id number] TP; Start 12/21/24 at 09:00; Stop 01/20/25 at 08:59 Fluconazole/ Sodium Chloride 100 ml @ 100 mls/hr DAILY IV; Start 12/21/24 at 09:00; Stop 01/20/25 at 08:59 Magnesium Sulfate 50 ml @ 0 mls/hr PROTOCOL IV Last administered on 12/20/24at 10:29; Start 12/20/24 at 10:00; Stop 01/19/25 at 09:59 RICHARD BURKETT Jr. Dec 20, 2024 15:12
--- NOTE | 2024-12-20 17:57 | PN ---
INFECTIOUS DISEASE PROGRESS NOTE Date of Service: Dec 20, 2024 SUBJECTIVE: Patient was seen and examined at bedside in room 227. Patient is awake, alert and oriented x3. Patient is s/p drainage and excisional debridement of the scrotal wall abscess on 12/16/2024. Wound VAC was placed yesterday. We will discontinue linezolid start patient on fluconazole IV daily and continue on Meropenem. Remains afebrile, temperature is 97.3. We will continue to follow patient's care. PHYSICAL EXAM EYES: Anicteric. Pupils equal and reactive. HENT: No oral thrush seen, moist Oral mucosa. NECK: Supple, no JVD or thyromegaly. LUNGS: Good air entry. No rales, no rhonchi. CARDIOVASCULAR: S1, S2 regular. No murmur heard. ABDOMEN: Soft, non tender, bowel sounds present, no organomegaly. CENTRAL NERVOUS SYSTEM: Awake, alert, oriented x 3. SKIN: No rashes, no swelling. LYMPHATICS: No peripheral lymphadenopathy MUSCULOSKELETAL: No joint swelling, erythema or tenderness. EXTREMITIES: No cyanosis or clubbing BACK: No deformity, no pressure ulcer. GENITOURINARY: No dysuria or hematuria. Thomas catheter. Scrotal abscess, s/p drainage and debridement. Vital Sign (Last 12 Hours) 12/20/24 12/20/24 12/20/24 12/20/24 07:00 08:00 11:00 16:00 Temp 98.2 97.3 98.4 Pulse 85 80 83 Resp 20 20 18 B/P (MAP) 148/81 139/80 136/76 Pulse Ox 95 95 92 96 O2 Delivery Room Air Room Air* Room Air Room Air O2 Flow Rate 0 FiO2 21 Intake & Output (last 24hrs) 12/19/24 12/19/24 12/20/24 15:00 23:00 07:00 Intake Total 1000 ml Output Total 1000 ml 1400 ml 1400 ml Balance 0 ml -1400 ml -1400 ml LABS: Laboratory: Test 12/20/24 14:54 12/20/24 03:53 12/19/24 04:07 Range/Units Whole Blood Glucose 231 H 70-110 MG/DL White Blood Count 11.8 H 4.8-10.8 K/uL Red Blood Count 4.03 L 4.50-6.20 MIL/uL Hemoglobin 10.0 L 14.0-18.0 g/dL Hematocrit 32.1 L 42-54 % Mean Corpuscular Volume 79.7 79-99 fL Mean Corpuscular Hemoglobin 24.8 L 27.0-33.0 pg Mean Corpuscular Hemoglobin Concent 31.2 L 32.0-36.0 g/dL Red Cell Distribution Width 13.7 11.0-15.5 % Platelet Count 570 H 130-400 K/uL Mean Platelet Volume 9.5 7.5-10.5 fL Nucleated Red Blood Cells 0.0 0.0-0.19 % Sodium Level 136 136-145 mmol/L Potassium Level 4.3 3.5-5.1 mmol/L Chloride Level 103 101-111 mmol/L Carbon Dioxide Level 27 21-32 mmol/L Blood Urea Nitrogen 47 H 7-18 mg/dL Creatinine 1.5 H 0.5-1.3 mg/dL Glomerular Filtration Rate Calc 57 >90 mL/min Random Glucose 217 H 70-105 mg/dL Uric Acid 7.5 H 2.6-7.2 mg/dL Total Calcium 8.2 L 8.5-10.1 mg/dL Magnesium Level 1.60 L 1.80-2.40 mg/dL Total Bilirubin 0.2 0.2-1.0 mg/dL Aspartate Amino Transf (AST/SGOT) 19 10-37 U/L Alanine Aminotransferase (ALT/SGPT) 20 # 12-78 U/L Alkaline Phosphatase 194 H 50-136 U/L Total Protein 6.8 6.0-8.3 g/dL Albumin 1.5 L 3.5-5.0 g/dL Thyroid Stimulating Hormone (TSH) 3.14 # 0.36-3.74 uIU/mL Immature Granulocyte % (Auto) 0.5 0-1 % Neutrophils (%) (Auto) 61.2 40.0-77.0 % Lymphocytes (%) (Auto) 27.3 21.0-51.0 % Monocytes (%) (Auto) 9.0 3.0-13.0 % Eosinophils (%) (Auto) 1.6 0.0-8.0 % Basophils (%) (Auto) 0.4 0.0-5.0 % Neutrophils # (Auto) 6.9 1.8-7.7 K/uL Lymphocytes # (Auto) 3.1 1.0-4.8 K/uL Monocytes # (Auto) 1.0 0.1-1.0 K/uL Eosinophils # (Auto) 0.18 0.00-0.70 K/uL Basophils # (Auto) 0.04 0.00-0.20 K/uL Absolute Immature Granulocyte (auto 0.06 0-1 K/uL Phosphorus Level 3.3 2.5-4.9 mg/dL Procalcitonin 0.08 0.05-0.5 ng/mL ASSESSMENT: Perineal abscess, s/p drainage and excisional debridement on 12/16/2024 Sepsis. Polymicrobial infection. Urinary tract infection. Leukocytosis. Acute renal failure. Hydronephrosis. Diabetes mellitus. Recent right Scrotal wall abscess with I&D and debridement on 08/01/2024. PLAN: Start fluconazole 200 mg IV daily. Continue Meropenem. Discontinue linezolid. Continue GI prophylaxis. Continue pain management. Continue wound care Continue antidiabetics. Avoid nephrotoxic medications. This case was reviewed and discussed with my supervising physician and the above assessment and plan was formulated and agreed upon. ATTESTATION BY PHYSICIAN I have seen and examined the patient. I reviewed the documentation, medical decision making, and treatment plan as noted by the mid-level provider above. I agree with the findings and plan of care. GRANT SUMMERS MD, [facility] Dec 20, 2024 17:57
--- NOTE | 2024-12-20 21:36 | PN ---
Endocrinology progress note DOS: 12/20/24 subjective: hyperglycemia is improving now s/p surgery for deep perineal abscess.s/p wound vac. glucose are improving. Home diabetic regimen: lantus 50 units daily, lispro insulin 25 units tid before meals, janumet mg bid Hba1c 14% REVIEW OF SYSTEMS CONSTITUTIONAL: fevers, chills and malaise NEUROLOGICAL: Denies headache, amaurosis fugax, motor weakness, sensory deficit, vertigo/spinning sensation, gait abnormalities, or tremors. ENT: No hearing loss, otalgia, otorrhea, rhinitis, rhinorrhea, hoarseness, or sore throat. CARDIOVASCULAR: Denies any exertional angina, dyspnea on exertion, orthopnea, paroxysmal nocturnal dyspnea, palpitations, life-threatening arrhythmias, claudication. PULMONARY: Denies any shortness of breath, cough, phlegm/sputum, hemoptysis, pleuritic chest pain. SLEEP: Denies morning headaches, daytime somnolence or napping. Denies difficulty falling asleep, staying asleep, waking from sleep. Denies knowledge of snoring. GASTROINTESTINAL: Denies any type of dysphagia to either liquids or solids. Denies nausea, vomiting, pyrosis, early satiety, abdominal pain, diarrhea, constipation, or changes in stool consistency or caliber. Denies coffee-ground emesis, hematemesis, hematochezia, or melanotic stools. GENITOURINARY: redness, swelling and pain to the right side of the scrotum ENDOCRINOLOGIC: poorly controlled DM II with hyperglycemia HEMATOLOGIC: Denies thrombophilia/previous clots, or coagulopathy/bleeding disorders. ONCOLOGIC: Denies personal history of malignancy. DERMATOLOGIC: redness and swelling to the right richie-scrotum PSYCHIATRIC: Denies any suicidal or homicidal ideation. Denies hallucinations. 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 Choudhury on 07/2024 PAST SOCIAL HISTORY: [Patient lives with his . Patient denies alcohol tobacco and recreational drug use . Patient states he used to smoke cigarette for 17 years two packs per day and quit two years ago] Allergies: Morphine causes headache Home medications: patient reports being on [id number] mg daily, [id number] mg daily, Lantus 50 units daily, insulin lispro,5 units b.i.d. p.c., losartan 50 mg daily, Colace daily, Janumet twice daily, Flomax 0.4 mg daily, clotrimazole cream twice daily, ferrous [id number] mg daily, Lipitor 40 mg daily Coded Allergies: morphine (Unverified Allergy, Intermediate, HALLUCINATIONS, 02/13/23) DIAGNOSTICS / RADIOLOGY: SERVICE 1040 REASON: urinary retention, testicular swelling wo per provider ORDERING PHYSICIAN: NYLA MORALES PROCEDURE: ABD PEL WO - CT ABDOMEN/PELVIS W/O CONTRAST EXAM: CT Abdomen and Pelvis Without IV contrast CLINICAL HISTORY: urinary retention, testicular swelling wo per provider TECHNIQUE: Axial computed tomography images of the abdomen and pelvis without intravenous contrast. CONTRAST: No IV contrast. COMPARISON: [facility] dated 02/08/23 FINDINGS: LUNG BASES: There are atelectatic bands within the bilateral lower lobes. LIVER: Unremarkable. GALLBLADDER AND BILE DUCTS: Post cholecystectomy status with surgical clips in situ. PANCREAS: Unremarkable. SPLEEN: Unremarkable. ADRENAL GLANDS: Unremarkable. KIDNEYS, URETERS, AND BLADDER: There is marked concentric bladder wall thickening, more pronounced posteriorly, with perivesicular fat stranding likely reflecting cystitis. There is reflux within the bilateral ureters resulting in severe bilateral hydronephrosis and also bilateral perinephric fat stranding reflecting pyelonephritis. There is no radiopaque calculus appreciated. STOMACH AND BOWEL: Unremarkable appearance of the stomach and bowel. No evidence of bowel obstruction. No evidence suggesting enteritis or colitis. APPENDIX: No evidence of acute appendicitis on CT examination. PERITONEUM: Small 7 mm fat-containing umbilical hernia. LYMPH NODES: No lymphadenopathy is evident. REPRODUCTIVE: A well-defined hypodense collection along the right penoscrotal region, measuring 6 x 5.1 cm, concerning for abscess. VASCULATURE: Atherosclerotic changes of the abdominal aorta. BONES: No aggressive appearing osseous lesion. No acute osseous pathology evident. IMPRESSION: 1. Severe bilateral hydronephrosis with pyelonephritis and perinephric fat stranding. 2. Marked bladder wall thickening with perivesicular fat stranding, compatible with cystitis. 3. 6 x 5.1 cm right penoscrotal hypodense collection, concerning for abscess. /[place] DICTATED BY: ALICE LEARY Jr., MD DATE: 12/15/24 145 ELECTRONICALLY SIGNED BY: ALICE LEARY Jr., MD DATE: 12/15/24 1459 ELECTRONICALLY SIGNED BY: DATE: EXAM: US Scrotum. CLINICAL HISTORY: TESTICULAR PAIN/SWELLING TECHNIQUE: Real-time ultrasound of the scrotum with color Doppler and image documentation. COMPARISON: Study dated 07/29. FINDINGS: RIGHT TESTICLE: Normal in size (3.3 cm x 1.5 cm x 2.4 cm) and echogenicity, no abnormal mass. Mildly reduced Doppler flow. LEFT TESTICLE: Normal in size (3.6 cm x 1.4 cm x 2.1 cm) and echogenicity, no abnormal mass. Normal Doppler flow. EPIDIDYMIDES: Within normal limits in size and vascularity. A 3 x 3 x 3 mm cyst along the head of the right epididymis. SCROTUM: There is significant improvement of previously documented abscess measuring 2.5 x 2.2 cm along the right scrotal wall (6 mm). No hydrocele, varicocele seen. IMPRESSION: 1. Scrotal wall abscess along the right side, measuring 2.5 x 2.2 cm, showing significant improvement/reduction in size. 2. Mildly reduced blood flow to the right testicle. Clinical correlation is advised for possible intermittent right testicular torsion. /[place] DICTATED BY: ALICE ELARY Jr., MD DATE: 12/15/24 1324 ELECTRONICALLY SIGNED BY: ALICE LEARY Jr., MD DATE: 12/15/24 1324 ASSESSMENT: uncontrolled DM-2 and hyperglycemia insulin adjusted and glucose are improvingl. now s/p surgery for deep perineal abscess. .s/p wound vac. glucose are improving. Home diabetic regimen: lantus 50 units daily, lispro insulin 25 units tid before meals, janumet mg bid Hba1c 14% Sepsis secondary to complicated urinary tract infection and scrotal cellulitis with abscess, POA s/p surgery Progressive scrotal cellulitis with developing right hemiscrotal abscess, POA Severe complicated urinary tract infection, POA Urinary retention status post Thomas catheter placement, POA Bilateral hydronephrosis, POA Acute kidney injury with underlying history of chronic kidney disease, POA History of Farxiga use as outpatient, POA but off due to hx of perineal abscess Hypertension, POA History of dual antiplatelet therapy with aspirin and Plavix as outpatient, POA History of coronary artery disease with prior history of coronary intervention and stenting, POA History of peripheral arterial disease with history of lower extremity angioplasty and stenting, POA History of TIA, POA Hypertension, POA Hyperlipidemia, POA Debility, POA Right eye blindness, POA Decreased vision of left eye, POA History of iron deficiency anemia, POA History of hospitalization in [facility] [place] for right epididymo-orchitis with abscess requiring surgical drainage,07/2024, POA PLAN: continue Lantus 50 units daily and adjust for fasting glucose. increase Regular insulin to 16 units daily and adjust for post-prandial glucose. Continue medium dose sliding scale insulin. Monitor glucose q x 6 hourly. Continue carb consistent diet. Keep glucose less than 180 mg/dl. Vitals/Labs Vital Signs Date Time Temp Pulse Resp B/P (MAP) Pulse Ox O2 Delivery O2 Flow Rate FiO2 12/20/24 16:00 98.4 83 18 136/76 96 Room Air 12/20/24 08:00 0 21 Laboratory Tests 12/20/24 03:53 Medications Current Medications Acetaminophen 1,000 mg ONCE ONCE PO Last administered on 12/15/24at 11:13; Start 12/15/24 at 11:00; Stop 12/15/24 at 11:01; Status DC Sodium Chloride 1,000 ml @ 0 mls/hr ONCE ONCE IV Last administered on 12/15/24at 11:33; Start 12/15/24 at 11:00; Stop 12/15/24 at 11:01; Status DC Vancomycin HCl 1 each AD IV; Start 12/15/24 at 11:00; Stop 12/15/24 at 23:52; Status DC Cefepime HCl 1 gm ONCE ONCE IVPB Last administered on 12/15/24at 11:37; Start 12/15/24 at 11:00; Stop 12/15/24 at 11:01; Status DC Vancomycin HCl 250 ml @ 125 mls/hr ONCE ONCE IV Last administered on 12/15/24at 11:51; Start 12/15/24 at 11:00; Stop 12/15/24 at 12:59; Status DC Insulin Human Regular 10 unit ONCE ONCE IV Last administered on 12/15/24at 11:48; Start 12/15/24 at 11:30; Stop 12/15/24 at 11:31; Status DC Vancomycin HCl 250 ml @ 125 mls/hr Q48H IV; Start 12/17/24 at 11:00; Stop 12/15/24 at 13:19; Status DC Insulin Human Regular INSULIN SLIDING SCAL... ACHS SQ Last administered on 12/15/24at 21:03; Start 12/15/24 at 16:30; Stop 12/16/24 at 06:19; Status DC Dextrose 50 ml AD PRN IV; Start 12/15/24 at 13:30; Stop 01/14/25 at 13:29 Glucagon 1 mg AD PRN IM; Start 12/15/24 at 13:30; Stop 01/14/25 at 13:29 Pharmacy Profile Note 1 each ONCE MISC; Start 12/15/24 at 13:30; Stop 12/15/24 at 14:18; Status DC Atorvastatin Calcium 40 mg HS PO Last administered on 12/20/24at 20:48; Start 12/15/24 at 21:00; Stop 01/14/25 at 20:59 Tamsulosin HCl 0.4 mg DAILY PO Last administered on 12/20/24at 10:27; Start 12/16/24 at 09:00; Stop 01/15/25 at 08:59 Ferrous Sulfate 325 mg DAILY PO Last administered on 12/20/24at 10:28; Start 12/16/24 at 09:00; Stop 01/15/25 at 08:59 Home Med (Sennosides/ Docusate Sodium (Colace 2-i... DAILY PO; Start 12/16/24 at 09:00; Stop 01/15/25 at 08:59 Sodium Chloride 1,000 ml @ 75 mls/hr [id number] IV Last administered on 12/17/24at 01:40; Start 12/15/24 at 13:30; Stop 12/17/24 at 10:49; Status DC Hydromorphone HCl 0.2 mg Q6H PRN IVP Last administered on 12/17/24at 04:34; Start 12/15/24 at 13:30; Stop 12/18/24 at 09:00; Status DC Famotidine 20 mg DAILY IV Last administered on 12/17/24at 08:53; Start 12/16/24 at 09:00; Stop 12/17/24 at 10:49; Status DC Sodium Chloride 500 ml @ 0 mls/hr ONCE ONCE IV Last administered on 12/15/24at 15:13; Start 12/15/24 at 14:30; Stop 12/15/24 at 14:31; Status DC Hydralazine HCl 5 mg Q6H PRN IV; Start 12/15/24 at 14:30; Stop 01/14/25 at 14:29 Meropenem 1 gm Q12H IVPB Last administered on 12/17/24at 17:11; Start 12/15/24 at 16:00; Stop 12/17/24 at 19:54; Status DC Linezolid 300 ml @ 150 mls/hr Q12H IV Last administered on 12/17/24at 08:53; Start 12/15/24 at 21:00; Stop 12/17/24 at 19:54; Status DC Vitamin B Complex/ Vit C/Folic Acid 1 cap DAILY PO Last administered on 12/20/24at 10:28; Start 12/16/24 at 09:00; Stop 01/15/25 at 08:59 Insulin Glargine 25 units HS SQ; Start 12/15/24 at 21:00; Stop 12/15/24 at 18:52; Status DC Insulin Glargine 20 units HS SQ Last administered on 12/15/24at 21:05; Start 12/15/24 at 21:00; Stop 12/16/24 at 06:19; Status DC Insulin Glargine 20 units DAILY SQ; Start 12/16/24 at 09:00; Stop 12/17/24 at 07:32; Status DC Insulin Human Regular 8 unit TIDAC SQ Last administered on 12/17/24at 06:59; Start 12/16/24 at 07:30; Stop 12/17/24 at 07:32; Status DC Insulin Human Regular INSULIN SLIDING SCAL... ACHS SQ Last administered on 12/20/24at 16:00; Start 12/16/24 at 07:30; Stop 01/15/25 at 07:29 Sodium Bicarbonate 650 mg QID PO Last administered on 12/20/24at 20:48; Start 12/16/24 at 13:00; Stop 01/15/25 at 12:59 Sodium Bicarbonate 50 meq ONCE ONCE IV Last administered on 12/16/24at 12:34; Start 12/16/24 at 12:00; Stop 12/16/24 at 12:05; Status DC Dexamethasone Sodium Phosphate 4 mg STK-MED ONCE .ROUTE; Start 12/16/24 at 15:54; Stop 12/16/24 at 16:00; Status DC Lidocaine HCl 5 ml STK-MED ONCE .ROUTE; Start 12/16/24 at 15:54; Stop 12/16/24 at 16:00; Status DC Midazolam HCl 2 mg STK-MED ONCE .ROUTE; Start 12/16/24 at 15:55; Stop 12/16/24 at 16:00; Status DC Propofol 200 mg STK-MED ONCE IV; Start 12/16/24 at 15:55; Stop 12/16/24 at 16:00; Status DC Succinylcholine Chloride 200 mg STK-MED ONCE .ROUTE; Start 12/16/24 at 15:55; Stop 12/16/24 at 16:00; Status DC Ondansetron HCl 4 mg STK-MED ONCE .ROUTE; Start 12/16/24 at 15:55; Stop 12/16/24 at 16:00; Status DC Rocuronium [place] 50 mg STK-MED ONCE .ROUTE; Start 12/16/24 at 15:55; Stop 12/16/24 at 16:00; Status DC Fentanyl Citrate 100 mcg STK-MED ONCE .ROUTE; Start 12/16/24 at 15:55; Stop 12/16/24 at 16:00; Status DC Insulin Glargine 50 units DAILY SQ Last administered on 12/20/24at 10:26; Start 12/17/24 at 09:00; Stop 01/16/25 at 08:59 Insulin Human Regular 15 unit TIDAC SQ Last administered on 12/20/24at 16:01; Start 12/17/24 at 07:30; Stop 01/16/25 at 07:29 Naloxone HCl 2 mg ONCE IV; Start 12/17/24 at 11:00; Stop 12/17/24 at 10:36; Status DC Naloxone HCl 2 mg ONCE ONCE IV; Start 12/17/24 at 11:00; Stop 12/17/24 at 11:01; Status DC Heparin Sodium (Porcine) 5,000 unit BID SQ Last administered on 12/20/24at 20:53; Start 12/17/24 at 11:00; Stop 01/16/25 at 10:59 Pantoprazole Sodium 40 mg DAILY IVP Last administered on 12/20/24at 10:28; Start 12/18/24 at 09:00; Stop 01/17/25 at 08:59 Sodium Bicarbonate 150 meq/Dextrose 1,150 ml @ 50 mls/hr Q23H IVP Last administered on 12/18/24at 08:25; Start 12/17/24 at 11:00; Stop 12/18/24 at 11:36; Status DC Aspirin 81 mg DAILY PO Last administered on 12/20/24at 10:27; Start 12/18/24 at 09:00; Stop 01/17/25 at 08:59 Acetaminophen 1,000 mg ONCE IVPB Last administered on 12/17/24at 17:11; Start 12/17/24 at 17:00; Stop 12/18/24 at 18:10; Status DC Linezolid 300 ml @ 150 mls/hr Q12H IV Last administered on 12/19/24at 10:01; Start 12/17/24 at 21:00; Stop 12/19/24 at 20:59; Status DC Meropenem 1 gm Q12H IVPB Last administered on 12/20/24at 16:01; Start 12/18/24 at 04:00; Stop 12/20/24 at 23:00 Magnesium Sulfate 50 ml @ 0 mls/hr PROTOCOL PRN IV Last administered on 12/18/24at 10:42; Start 12/18/24 at 09:30; Stop 12/20/24 at 09:53; Status DC Leptospermum Honey 1 APPLICATION ONCE STAT TP Last administered on 12/19/24at 16:35; Start 12/19/24 at 16:04; Stop 12/19/24 at 16:06; Status DC Leptospermum Honey 1 APPL QMOWEFR TP; Start 12/21/24 at 09:00; Stop 01/20/25 at 08:59 Fluconazole/ Sodium Chloride 100 ml @ 100 mls/hr DAILY IV; Start 12/21/24 at 09:00; Stop 01/20/25 at 08:59 Magnesium Sulfate 50 ml @ 0 mls/hr PROTOCOL IV Last administered on 12/20/24at 10:29; Start 12/20/24 at 10:00; Stop 01/19/25 at 09:59 CINDY HALE MD Dec 20, 2024 21:36
[2024-12-21] VITALS (7 sets, daily range): BP systolic 129–147; BP diastolic 79–84; PULSE 69–80; RESP 18–20; TEMP 97.9–98.5; O2SAT 94–95
[2024-12-21 04:42] LABS: NUCLEATED RED BLOOD CELLS 0.0 % (0.0-0.19); PLATELET COUNT (AUTO) 580.0 K/uL (130-400); RED BLOOD CELL COUNT(AUTO) 4.29 MIL/uL (4.50-6.20); RED CELL DISTRIBUTION WIDTH 13.7 % (11.0-15.5); WHITE BLOOD COUNT (AUTO) 14.0 K/uL (4.8-10.8)
[2024-12-21 05:21] LABS: ASPARTATE AMINOTRANSFERASE 25.0 U/L (10-37); CREATININE 1.2 mg/dL (0.5-1.3); GLOMERULAR FILTR. RATE CALC 75.0 mL/min (>90); GLUCOSE,RANDOM 228.0 mg/dL (70-105); SODIUM SERUM 136.0 mmol/L (136-145); TOTAL PROTEIN, SERUM 7.3 g/dL (6.0-8.3); UREA NITROGEN, BLOOD 39.0 mg/dL (7-18)
--- NOTE | 2024-12-21 08:15 | NUR ---
PATIENT STATED THAT HE HASN'T HAD A BOWEL MOVEMENT IN 4 DAYS. WILL LET MD KNOW OF THE STATUS OF PATIENT AND WAIT FOR ORDERS.
--- NOTE | 2024-12-21 08:45 | NUR ---
ORDER RECEIVED TO START PATIENTS HOME MEDICATION FOR LAXATIVE
[2024-12-21] MEDS: HONEY 1 APPL/ML TUBE TP SCH (09:43)
--- NOTE | 2024-12-21 10:00 | NUR ---
cm note per miriam with [facility] states did not receive referral. resent referral for evaluation
[2024-12-21] MEDS: SENNOSIDES 8.6 MG TABLET PO SCH (11:53)
--- NOTE | 2024-12-21 12:20 | NUR ---
[facility] Follow-up: Patient re-assessed by wound healing team. Wound vac changed to scrotum. Assessment and recommendations provided to primary nurse. Education provided. Addendum: 12/21/24 at 1330 by MATTEO LEARY RN RN/ Amended: Links added.
--- NOTE | 2024-12-21 12:22 | NUR ---
PATIENT STATED THAT HE HAS BLISTERS TO HIS RIGHT FLANK. MADE MD AWARE. ORDERS FOR BACTROBAN BID
--- NOTE | 2024-12-21 13:01 | PN ---
GENERAL SURGERY PROGRESS NOTE Date/Time Patient Seen: 12/21/2024 10:30 a.m. Problem List: Perineal abscess status post excisional debridement urology Interval History: Patient reports pain is well controlled. His wound VAC seems to be working appropriately. No complaints from the nursing staff. Current Medications Medications (Trade) Dose Ordered Sig/Gaby Route Start Time Stop Time Status Last Admin Dose Admin Acetaminophen (acetaMINOPHEN) 1,000 mg ONCE IVPB 12/17/24 17:00 12/18/24 18:10 DC 12/17/24 17:11 1,000 MG Aspirin (Aspirin 81mg Ec Tab) 81 mg DAILY PO 12/18/24 09:00 01/17/25 08:59 12/21/24 09:05 81 MG Atorvastatin Calcium (LIPItor 40MG) 40 mg HS PO 12/15/24 21:00 01/14/25 20:59 12/20/24 20:48 40 MG Docusate Sodium (COLace LIQUID 100MG/10ML) 50 mg DAILY PO 12/21/24 11:00 01/20/25 10:59 12/21/24 11:52 50 MG Famotidine (Pepcid 20mg Vial) 20 mg DAILY IV 12/16/24 09:00 12/17/24 10:49 DC 12/17/24 08:53 20 MG Ferrous Sulfate (Ferrous Sulfate) 325 mg DAILY PO 12/16/24 09:00 01/15/25 08:59 12/21/24 09:06 325 MG Fluconazole/ Sodium Chloride 100 ml @ 100 mls/hr DAILY IV 12/21/24 09:00 01/20/25 08:59 12/21/24 09:05 100 MLS/HR Heparin Sodium (Porcine) (HEParin 5,000 UNIT VIAL) 5,000 unit BID SQ 12/17/24 11:00 01/16/25 10:59 12/21/24 09:18 5,000 UNIT Home Med (Home Medication) (Sennosides/ Docusate Sodium (Colace 2-i... DAILY PO 12/16/24 09:00 12/21/24 10:37 DC Insulin Glargine (LANtus 100 UNITS/ML 10 ML VIAL) 20 units DAILY SQ 12/16/24 09:00 12/17/24 07:32 DC Insulin Glargine (LANtus 100 UNITS/ML 10 ML VIAL) 20 units HS SQ 12/15/24 21:00 12/16/24 06:19 DC 12/15/24 21:05 20 UNITS Insulin Glargine (LANtus 100 UNITS/ML 10 ML VIAL) 25 units HS SQ 12/15/24 21:00 12/15/24 18:52 DC Insulin Glargine (LANtus 100 UNITS/ML 10 ML VIAL) 50 units DAILY SQ 12/17/24 09:00 01/16/25 08:59 12/21/24 09:20 50 UNITS Insulin Human Regular (humuLIN R 100 UNIT/ML 3ML) 8 unit TIDAC SQ 12/16/24 07:30 12/17/24 07:32 DC 12/17/24 06:59 8 UNIT Insulin Human Regular (humuLIN R 100 UNIT/ML 3ML) 15 unit TIDAC SQ 12/17/24 07:30 12/20/24 21:39 DC 12/20/24 16:01 15 UNIT Insulin Human Regular (humuLIN R 100 UNIT/ML 3ML) 16 unit TIDAC SQ 12/21/24 07:30 01/20/25 07:29 12/21/24 12:03 16 UNIT Insulin Human Regular (humuLIN R 100 UNIT/ML 3ML) INSULIN SLIDING SCAL... ACHS SQ 12/15/24 16:30 12/16/24 06:19 DC 12/15/24 21:03 5 UNIT Insulin Human Regular (humuLIN R 100 UNIT/ML 3ML) INSULIN SLIDING SCAL... ACHS SQ 12/16/24 07:30 01/15/25 07:29 12/21/24 12:03 6 UNIT Leptospermum Honey (Qnect, llchoney) 1 APPLICATION ONCE STAT TP 12/19/24 16:04 12/19/24 16:06 DC 12/19/24 16:35 1 APPL Leptospermum Honey (Medihoney) 1 APPL QMOWEFR TP 12/21/24 09:00 01/20/25 08:59 12/21/24 09:43 1 APPL Linezolid 300 ml @ 150 mls/hr Q12H IV 12/15/24 21:00 12/17/24 19:54 DC 12/17/24 08:53 150 MLS/HR Linezolid 300 ml @ 150 mls/hr Q12H IV 12/17/24 21:00 12/19/24 20:59 DC 12/19/24 10:01 150 MLS/HR Magnesium Sulfate 50 ml @ 0 mls/hr PROTOCOL IV 12/20/24 10:00 01/19/25 09:59 12/21/24 06:41 25 MLS/HR Meropenem (Merrem 1gm) 1 gm Q12H IVPB 12/15/24 16:00 12/17/24 19:54 DC 12/17/24 17:11 1 GM Meropenem (Merrem 1gm) 1 gm Q12H IVPB 12/18/24 04:00 12/20/24 23:00 DC 12/20/24 16:01 1 GM Mupirocin (Bactroban Oint) 1 APPL BID TP 12/21/24 12:30 01/20/25 12:29 Naloxone HCl (NARcan HCL 1 MG/ ML 2ML SYG) 2 mg ONCE IV 12/17/24 11:00 12/17/24 10:36 DC Pantoprazole Sodium (PROTonix 40MG INJ) 40 mg DAILY IVP 12/18/24 09:00 01/17/25 08:59 12/21/24 09:19 40 MG Pharmacy Profile Note (Pharmacy Communication) 1 each ONCE MISC 12/15/24 13:30 12/15/24 14:18 DC Sennosides (Senna) 1 tab DAILY PO 12/21/24 11:00 01/20/25 10:59 12/21/24 11:53 1 TAB Sodium Bicarbonate 150 meq/Dextrose 1,150 ml @ 50 mls/hr Q23H IVP 12/17/24 11:00 12/18/24 11:36 DC 12/18/24 08:25 50 MLS/HR Sodium Bicarbonate (Sodium Bicarbonate) 650 mg QID PO 12/16/24 13:00 01/15/25 12:59 12/21/24 09:05 650 MG Sodium Chloride 1,000 ml @ 75 mls/hr [id number] IV 12/15/24 13:30 12/17/24 10:49 DC 12/17/24 01:40 75 MLS/HR Tamsulosin HCl (FloMAX) 0.4 mg DAILY PO 12/16/24 09:00 01/15/25 08:59 7/25/25 09:06 0.4 MG Vancomycin HCl 250 ml @ 125 mls/hr Q48H IV 12/17/24 11:00 12/15/24 13:19 DC Vancomycin HCl (Vancomycin Protocol) 1 each AD IV 12/15/24 11:00 12/15/24 23:52 DC Vitamin B Complex/ Vit C/Folic Acid (Nephrovite Tablet) 1 cap DAILY PO 12/16/24 09:00 01/15/25 08:59 12/21/24 09:06 1 CAP Physical Examination: GENERAL: No acute distress. HEAD: Normal with no signs of head trauma. EYES: PERRLA, EOMI, conjunctiva and sclera normal. LUNGS: Respirations nonlabored HEART: Regular rate and rhythm ABD: Soft, nondistended, nontender, no rebound, no guarding. Wound VAC in place : Not examined LYMPH: No lymphadenopathy noted. EXT: No clubbing, cyanosis or edema. Status post left BKA, status post right 2nd 3rd and 4th ray amputations SKIN: No rashes or lesions noted. NEURO: Awake, alert, and oriented x3. No focal sensory or strength deficits noted. Vital Signs (last 8hr) Date Time Temp Pulse Resp B/P (MAP) Pulse Ox O2 Delivery O2 Flow Rate FiO2 12/21/24 12:00 98.4 74 19 140/84 96 Room Air 12/21/24 08:00 98.4 80 19 147/83 95 Room Air Laboratory: Hematology Labs: Test 12/21/24 04:14 Range/Units White Blood Count 14.0 H 4.8-10.8 K/uL Red Blood Count 4.29 L 4.50-6.20 MIL/uL Hemoglobin 10.8 L 14.0-18.0 g/dL Hematocrit 34.3 L 42-54 % Mean Corpuscular Volume 80.0 79-99 fL Mean Corpuscular Hemoglobin 25.2 L 27.0-33.0 pg Mean Corpuscular Hemoglobin Concent 31.5 L 32.0-36.0 g/dL Red Cell Distribution Width 13.7 11.0-15.5 % Platelet Count 580 H 130-400 K/uL Mean Platelet Volume 9.1 7.5-10.5 fL Nucleated Red Blood Cells 0.0 0.0-0.19 % Chemistry Labs: Test 12/21/24 10:51 12/21/24 04:14 12/20/24 03:53 Range/Units Whole Blood Glucose 237 H 70-110 MG/DL Sodium Level 136 136-145 mmol/L Potassium Level 4.3 3.5-5.1 mmol/L Chloride Level 102 101-111 mmol/L Carbon Dioxide Level 26 21-32 mmol/L Blood Urea Nitrogen 39 H 7-18 mg/dL Creatinine 1.2 0.5-1.3 mg/dL Glomerular Filtration Rate Calc 75 >90 mL/min Random Glucose 228 H 70-105 mg/dL Total Calcium 8.3 L 8.5-10.1 mg/dL Magnesium Level 1.70 L 1.80-2.40 mg/dL Total Bilirubin 0.2 0.2-1.0 mg/dL Aspartate Amino Transf (AST/SGOT) 25 10-37 U/L Alanine Aminotransferase (ALT/SGPT) 26 12-78 U/L Alkaline Phosphatase 207 H 50-136 U/L Total Protein 7.3 6.0-8.3 g/dL Albumin 1.7 L 3.5-5.0 g/dL Uric Acid 7.5 H 2.6-7.2 mg/dL Thyroid Stimulating Hormone (TSH) 3.14 # 0.36-3.74 uIU/mL Diagnostics / Radiology: No new imaging Impression and Plan: This is a 49-year-old male with recurrent perineal abscesses currently status post excisional debridement and doing well. 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 This is something that should be able to be addressed in the outpatient setting. The wound VAC appears to be functioning appropriately. Once the wound is getting close to healed the patient can follow up with me in the office to schedule exam under anesthesia. VEE AMBROSIO DO Dec 21, 2024 13:01
--- NOTE | 2024-12-21 13:17 | PN ---
NEPHROLOGY PROGRESS NOTE Date/Time Patient Seen: Dec 21, 2024 SUBJECTIVE: This is a 49-year-old male with a past medical history of diabetes mellitus type 2, hypertension, peripheral arterial disease with left AKA, coronary artery disease, hyperlipidemia, GERD, PAD, and obesity Patient presented to the emergency room for fever and scrotum swelling. Thomas in place due to urinary retention Blood and urine cultures have been collected, pending results Continues on broad-spectrum antibiotics. We have consulted for renal failure. Renal function and electrolytes are stable. UA positive for proteinuria. Hemoglobin noted CT of the abdomen showed severe bilateral hydronephrosis. Marked bladder wall thickening with perivesicular fat stranding Renal ultrasound showed Urinary bladder wall thickening of concern for cystitis. Recommend urine routine. Previously demonstrated bilateral moderate hydroureteronephrosis is not visualized. 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 Pending wound VAC change Family at the bedside Prognosis remains guarded REVIEW OF SYSTEMS: GENERAL: Positive for fever and scrotum swelling. NEUROLOGIC: Negative for any blurry vision, blind spots, double vision, facial asymmetry, dysphagia, dysarthria, hemiparesis, hemisensory deficits, vertigo, ataxia. HEENT: Negative for any head trauma, neck trauma, neck stiffness, photophobia, phonophobia, sinusitis, rhinitis. CARDIAC: Negative for any chest pain, dyspnea on exertion, paroxysmal nocturnal dyspnea, peripheral edema. PULMONARY: Negative for any shortness of breath, wheezing, COPD, or TB exposure. GASTROINTESTINAL: Negative for any abdominal pain, nausea, vomiting, bright red blood per rectum, melena. GENITOURINARY: Negative for any dysuria, hematuria, incontinence. INTEGUMENTARY: Negative for any rashes, cuts, insect bites. RHEUMATOLOGIC: Negative for any joint pains, photosensitive rashes, history of vasculitis or kidney problems. HEMATOLOGIC: Negative for any abnormal bruising, frequent infections or bleeding. Vital Signs (last 8hr) Date Time Temp Pulse Resp B/P (MAP) Pulse Ox O2 Delivery O2 Flow Rate FiO2 12/21/24 12:00 98.4 74 19 140/84 96 Room Air 12/21/24 08:00 98.4 80 19 147/83 95 Room Air PHYSICAL EXAM: GENERAL: Alert and oriented x 3. No acute distress. Well-nourished. EYES: EOMI. Anicteric. HENT: Moist mucous membranes. No scleral icterus. No cervical lymphadenopathy. LUNGS: Clear to auscultation bilaterally. No accessory muscle use. CARDIOVASCULAR: Regular rate and rhythm. No murmur. No JVD. ABDOMEN: Soft, non-tender and non-distended. No palpable masses. EXTREMITIES: No edema. Non-tender. SKIN: No rashes or lesions. Warm. NEUROLOGIC: No focal neurological deficits. CN II-XII grossly intact, but not individually tested. PSYCHIATRIC: Cooperative. Appropriate mood and affect. Current Medications Medications (Trade) Dose Ordered Sig/Gaby Route Start Time Stop Time Status Last Admin Dose Admin Atorvastatin Calcium (LIPItor 40MG) 40 mg HS PO 12/15/24 21:00 01/14/25 20:59 12/15/24 21:05 40 MG Famotidine (Pepcid 20mg Vial) 20 mg DAILY IV 12/16/24 09:00 01/15/25 08:59 12/16/24 09:12 20 MG Ferrous Sulfate (Ferrous Sulfate) 325 mg DAILY PO 12/16/24 09:00 01/15/25 08:59 Home Med (Home Medication) (Sennosides/ Docusate Sodium (Colace 2-i... DAILY PO 12/16/24 09:00 01/15/25 08:59 Insulin Glargine (LANtus 100 UNITS/ML 10 ML VIAL) 20 units DAILY SQ 12/16/24 09:00 01/14/25 20:59 Insulin Glargine (LANtus 100 UNITS/ML 10 ML VIAL) 20 units HS SQ 12/15/24 21:00 12/16/24 06:19 DC 12/15/24 21:05 20 UNITS Insulin Glargine (LANtus 100 UNITS/ML 10 ML VIAL) 25 units HS SQ 12/15/24 21:00 12/15/24 18:52 DC Insulin Human Regular (humuLIN R 100 UNIT/ML 3ML) 8 unit TIDAC SQ 12/16/24 07:30 01/15/25 07:29 Insulin Human Regular (humuLIN R 100 UNIT/ML 3ML) INSULIN SLIDING SCAL... ACHS SQ 12/15/24 16:30 12/16/24 06:19 DC 12/15/24 21:03 5 UNIT Insulin Human Regular (humuLIN R 100 UNIT/ML 3ML) INSULIN SLIDING SCAL... ACHS SQ 12/16/24 07:30 01/15/25 07:29 Linezolid 300 ml @ 150 mls/hr Q12H IV 12/15/24 21:00 12/17/24 20:59 12/16/24 09:12 150 MLS/HR Meropenem (Merrem 1gm) 1 gm Q12H IVPB 12/15/24 16:00 12/17/24 23:00 12/16/24 06:02 1 GM Pharmacy Profile Note (Pharmacy Communication) 1 each ONCE MISC 12/15/24 13:30 12/15/24 14:18 DC Sodium Chloride 1,000 ml @ 75 mls/hr [id number] IV 12/15/24 13:30 01/14/25 13:29 12/16/24 02:42 75 MLS/HR Tamsulosin HCl (FloMAX) 0.4 mg DAILY PO 12/16/24 09:00 01/15/25 08:59 Vancomycin HCl 250 ml @ 125 mls/hr Q48H IV 12/17/24 11:00 12/15/24 13:19 DC Vancomycin HCl (Vancomycin Protocol) 1 each AD IV 12/15/24 11:00 12/15/24 23:52 DC Vitamin B Complex/ Vit C/Folic Acid (Nephrovite Tablet) 1 cap DAILY PO 12/16/24 09:00 01/15/25 08:59 LABORATORY: [ ] Hematology Labs: Test 12/21/24 04:14 Range/Units White Blood Count 14.0 H 4.8-10.8 K/uL Red Blood Count 4.29 L 4.50-6.20 MIL/uL Hemoglobin 10.8 L 14.0-18.0 g/dL Hematocrit 34.3 L 42-54 % Mean Corpuscular Volume 80.0 79-99 fL Mean Corpuscular Hemoglobin 25.2 L 27.0-33.0 pg Mean Corpuscular Hemoglobin Concent 31.5 L 32.0-36.0 g/dL Red Cell Distribution Width 13.7 11.0-15.5 % Platelet Count 580 H 130-400 K/uL Mean Platelet Volume 9.1 7.5-10.5 fL Nucleated Red Blood Cells 0.0 0.0-0.19 % Chemistry Labs: Test 12/21/24 10:51 12/21/24 04:14 12/20/24 03:53 Range/Units Whole Blood Glucose 237 H 70-110 MG/DL Sodium Level 136 136-145 mmol/L Potassium Level 4.3 3.5-5.1 mmol/L Chloride Level 102 101-111 mmol/L Carbon Dioxide Level 26 21-32 mmol/L Blood Urea Nitrogen 39 H 7-18 mg/dL Creatinine 1.2 0.5-1.3 mg/dL Glomerular Filtration Rate Calc 75 >90 mL/min Random Glucose 228 H 70-105 mg/dL Total Calcium 8.3 L 8.5-10.1 mg/dL Magnesium Level 1.70 L 1.80-2.40 mg/dL Total Bilirubin 0.2 0.2-1.0 mg/dL Aspartate Amino Transf (AST/SGOT) 25 10-37 U/L Alanine Aminotransferase (ALT/SGPT) 26 12-78 U/L Alkaline Phosphatase 207 H 50-136 U/L Total Protein 7.3 6.0-8.3 g/dL Albumin 1.7 L 3.5-5.0 g/dL Uric Acid 7.5 H 2.6-7.2 mg/dL Thyroid Stimulating Hormone (TSH) 3.14 # 0.36-3.74 uIU/mL DIAGNOSTICS / RADIOLOGY: [place] [address] IMAGING REPORT Signed PATIENT: ASHA SUERO MR#: [id number] : 1975 SEX: M AGE: 49 LOCATION: 2CH ORDER 1 STATUS: ADM IN [facility] REPORT#: [id number] SERVICE 6 REASON: R/O STROKE ORDERING PHYSICIAN: ZARI JORDAN APRN PROCEDURE: MRA NECKWO - MR ANGIO NECK WO CON EXAM: MRA Neck without Intravenous Contrast. CLINICAL HISTORY: R/O STROKE TECHNIQUE: Magnetic resonance angiography images of the neck without intravenous contrast. Three-dimensional MIP reformations performed. COMPARISON: Ultrasound exam from December 17, 2024. FINDINGS: INTERNAL CAROTID ARTERIES: No significant stenosis based on NASCET criteria. COMMON CAROTID ARTERIES: No significant stenosis. No dissection. EXTERNAL CAROTID ARTERIES: No occlusion or dissection. VERTEBRAL ARTERIES: No significant stenosis. No dissection. BASILAR ARTERY: No significant stenosis. No dissection. SOFT TISSUES Unremarkable as visualized. IMPRESSION: No hemodynamically significant stenosis appreciated. /Moody DICTATED BY: ALICE LEARY Jr., MD DATE: 12/17/241653 ELECTRONICALLY SIGNED BY: ALICE LEARY Jr., MD DATE: 12/17/241653 PATIENT: ASHA SUERO MR#: [id number] : 1975 SEX: M AGE: 49 LOCATION: [facility] ORDER 1 STATUS: ADM IN [facility] REPORT#: [id number] SERVICE 6 REASON: EVALUATE CARDIAC FUNCTION ORDERING PHYSICIAN: ZARI JORDAN APRN PROCEDURE: ECHO CMP - ECHO 2-D COMPLETE APPROVED REPORT EXAM: Two-dimensional and M-mode echocardiogram with Doppler and color Doppler. INDICATION ICD: Evalute cardiac function 2D Dimensions RVDd 4.0 cm LVEF(%) 44.4 (>50%) LVED Vol(simp.) 176.0 mL IVSd 0.9 (0.7-1.1cm) FS(%) 22 % LVES Vol(simp.) 110.0 mL LVDd 5.4 (3.8-5.6cm) LA (2D) 2.1 (1.6-4.0cm) LVEF(%, simp.) 37 % PWd 1.0 (0.7-1.1cm) Ao Root(2D) 2.6 (2.0-3.7cm) LA ESV INDEX (BP) 37.59 mL/m2 LVDs 4.2 (2.5-4.0cm) LVOT diam 2.5 (1.8-2.4cm) IVC diam 2.0 cm Deformation Strain Apical 4 -9.4 % Apical 2 -13.7 % Apical 3 -10.7 % Global Strain -11.3 % M-Mode Dimensions EPSS 1.7 cm LA (MM) 2.9 (1.6-4.0cm) Ao Root(MM) 2.6 (2.0-3.7cm) Aortic Valve AoV Vmax 0.9 m/s Ao Peak GR 3.1 mmHg LVOT Vmax 0.8 m/s AoV VTI 0.2 m Ao Mean GR 1.8 mmHg LVOT VTI 0.17 m CULLEN (VMAX) 4.18 cm2 CULLEN (VTI) 4.2 cm2 Mitral Valve MV E Vmax 64.6 cm/s DECEL Time 195 ms MV A Vmax 66.0 cm/s P 1/2 T 87 ms E/A ratio 1.0 MVA (PHT) 2.5 cm2 TDI E/E' Medial 10.5 E/E' Lateral 5.6 Medial E' Peak V 6.14 cm/s Lateral E' Peak V 11.44 cm/s Pulmonary Valve PV Vmax 0.8 m/s PV VTI 0.20 m PV Mean GR 1.3 mmHg PV Peak GR 2.4 mmHg Tricuspid Valve RAP (EST) 8 mmHg RVSP 8.0 mmHg Left Ventricle Left ventricle is normal in size. The apical anterior lateral, inferolateral carrillo are severely hypokinetic. The apical inferior wall is thin, scarred and akinetic. The other carrillo are grossly normal. There is normal left ventricular wall thickness. Left ventricle systolic function is moderately depressed, estimated LVEF 40%. Indeterminate diastolic dysfunction. Right Ventricle The right ventricle is normal size. The right ventricular systolic function is normal. Atria The left atrium is mildly dilated, 38ml/m2. The right atrium size is normal. Aortic Valve Aortic valve is trileaflet. No aortic regurgitation is present. There is no aortic valvular stenosis. Mitral Valve The mitral valve is normal in structure. The leaflets are mildly thickened. Trace mitral regurgitation. There is no mitral valve stenosis. Tricuspid Valve The tricuspid valve is normal in structure. Trace tricuspid regurgitation. RVSP is normal. Pulmonic Valve Pulmonic valve is not well visualized. Great Vessels The aortic root is normal in size. The IVC is normal in size and collapses <50% with inspiration. Pericardium There is no pericardial effusion. Other Information Quality : Technically difficult study due to body habitus Conclusion Technically limited study with poor imaging windows. The left atrium is mildly dilated, 38ml/m2. There is normal left ventricular wall thickness. The apical anterior lateral, inferolateral carrillo are severely hypokinetic. The apical inferior wall is thin, scarred and akinetic. The other carrillo are grossly normal. Left ventricle systolic function is moderately depressed, estimated LVEF 40%. Indeterminate diastolic dysfunction. Trace mitral regurgitation. Trace tricuspid regurgitation. PASP is normal. There is no pericardial effusion. Recommend repeating an echocardiogram with Definity contrast to assess wall motion and LVEF. DICTATED BY: VEE BARILLAS MD DATE: 12/17/24 1441 ELECTRONICALLY SIGNED BY: VEE BARILLAS MD DATE: 12/17/24 170 PATIENT: ASHA SUERO MR#: [id number] : 1975 SEX: M AGE: 49 LOCATION: 2CH ORDER 1 STATUS: ADM IN [facility] REPORT#: [id number] SERVICE 6 REASON: EVALUATE S/S STROKE ORDERING PHYSICIAN: ZARI JORDAN APRN PROCEDURE: CAROTID - US CAROTID DUPLEX EXAM: US Duplex Bilateral Carotid and Vertebral Arteries. CLINICAL HISTORY: EVALUATE S/S STROKE TECHNIQUE: Real-time ultrasound scan of the bilateral carotid and vertebral arteries, 2-D grayscale, with color Doppler flow and spectral waveform analysis. COMPARISON: None provided. FINDINGS: RIGHT COMMON CAROTID ARTERY: PSV???77 cm/sec, no occlusion or significant stenosis. RIGHT INTERNAL CAROTID ARTERY: PSV???96 cm/sec, no occlusion or significant stenosis. RIGHT EXTERNAL CAROTID ARTERY: PSV- 64 cm/sec, no occlusion or significant stenosis. RIGHT VERTEBRAL ARTERY: Antegrade flow. PSV 62 cm/sec RIGHT ICA/CCA RATIO: 1.2 Within normal limits. LEFT COMMON CAROTID ARTERY: PSV- 85 cm/sec, no occlusion or significant stenosis. Soft tissue plaque in proximal CCA. LEFT INTERNAL CAROTID ARTERY: PSV- 55 cm/sec, no occlusion or significant stenosis. LEFT EXTERNAL CAROTID ARTERY: PSV -86 cm/sec No occlusion or significant stenosis. LEFT VERTEBRAL ARTERY: Antegrade flow. PSV 37 cm/sec LEFT ICA/CCA RATIO: 0.6 Within normal limits. SOFT TISSUES: No incidental abnormalities. IMPRESSION: 1. No hemodynamically significant stenosis in bilateral carotid or vertebral arteries. /[place] DICTATED BY: ALICE LEARY Jr., MD DATE: 12/17/241219 ELECTRONICALLY SIGNED BY: ALICE LEARY Jr., MD DATE: 12/17/241219 PATIENT: ASHA SUERO MR#: [id number] : 1975 SEX: M AGE: 49 LOCATION: [facility] ORDER 0909 STATUS: ADM IN REPORT#: [id number] SERVICE 0908 REASON: S ORDERING PHYSICIAN: JANET IVAN MD PROCEDURE: HEAD WO - CT HEAD/BRAIN W/O CONTRAST ADDENDUM REPORT ADDENDUM: Results were shared by telephone at 11:10 am on 12/17/24 and acknowledged by Isaias Robb /Moody EXAM: Non-contrast CT examination of the Brain CLINICAL HISTORY: Rule out stroke. Altered mental status. TECHNIQUE: Thin collimated axial CT images of the brain were obtained, with sagittal and coronal reformatted images also submitted. CT scan done according to ALARA (As Low as Reasonably Achievable). CONTRAST USED: None. COMPARISON: Prior CT brain dated 02/02/23. FINDINGS: No acute intracranial abnormality is present. No acute cortical infarction, hemorrhage, mass, or mass effect. Mild generalized cerebral atrophy. No hydrocephalus or abnormal extra-axial fluid collections. Stable encephalomalacia in the bilateral inferior cerebellar hemispheres. The skull base and calvarium are intact. The mastoid air cells are clear. Mucosal disease in the visualized right maxillary sinus. IMPRESSION: No acute intracranial abnormality is present. Stable encephalomalacia in the bilateral inferior cerebellar hemispheres suggesting sequelae of prior insult. No significant interval change. /Moody DICTATED BY: ALICE LEARY Jr., MD DATE: 12/17/24 1112 ELECTRONICALLY SIGNED BY: DATE: EXAM: Non-contrast CT examination of the Brain CLINICAL HISTORY: Rule out stroke. Altered mental status. TECHNIQUE: Thin collimated axial CT images of the brain were obtained, with sagittal and coronal reformatted images also submitted. CT scan done according to ALARA (As Low as Reasonably Achievable). CONTRAST USED: None. COMPARISON: Prior CT brain dated 02/02/23. FINDINGS: No acute intracranial abnormality is present. No acute cortical infarction, hemorrhage, mass, or mass effect. Mild generalized cerebral atrophy. No hydrocephalus or abnormal extra-axial fluid collections. Stable encephalomalacia in the bilateral inferior cerebellar hemispheres. The skull base and calvarium are intact. The mastoid air cells are clear. Mucosal disease in the visualized right maxillary sinus. IMPRESSION: No acute intracranial abnormality is present. Stable encephalomalacia in the bilateral inferior cerebellar hemispheres suggesting sequelae of prior insult. No significant interval change. /Moody DICTATED BY: ALICE LEARY Jr., MD DATE: 12/17/24 1054 ELECTRONICALLY SIGNED BY: ALICE LEARY Jr., MD DATE: 12/17/24 105 PATIENT: ASHA SUERO MR#: [id number] : 1975 SEX: M AGE: 49 LOCATION: 2DH ORDER 1329 STATUS: ADM IN REPORT#: [id number] SERVICE 132 REASON: renal failure ORDERING PHYSICIAN: JANET IVAN MD PROCEDURE: RENAL - US RENAL SONOGRAM EXAMINATION: ULTRASOUND OF THE RETROPERITONEUM. CLINICAL HISTORY: Renal failure. COMPARISON: CT abdomen and pelvis without contrast dated 12/15/2024. TECHNIQUE: Real-time grayscale ultrasound images of the kidneys. FINDINGS: The kidneys are normal in caliber, the right kidney measures 11.9 x 5.0 x 7.8 cm and the left kidney measures 13.0 x 7.6 x 3.8 cm in its craniocaudal, AP, and transverse dimensions respectively. There is normal renal cortical thickness, and cortical echogenicity. There is no renal calculus or hydronephrosis. The urinary bladder is empty with Thomas???s bulb. There is wall thickening (0.6 cm). IMPRESSION: Urinary bladder wall thickening of concern for cystitis. Recommend urine routine. Previously demonstrated bilateral moderate hydroureteronephrosis is not visualized. /Moody DICTATED BY: ALICE LEARY Jr., MD DATE: 12/17/24943 ELECTRONICALLY SIGNED BY: ALICE LEARY Jr., MD DATE: 12/17/24943 PATIENT: ASHA SUERO MR#: [id number] : 1975 SEX: M AGE: 49 LOCATION: [facility] ORDER 1041 STATUS: ADM IN REPORT#: [id number] SERVICE 1040 REASON: urinary retention, testicular swelling wo per provider ORDERING PHYSICIAN: NYLA MORALES PROCEDURE: ABD PEL WO - CT ABDOMEN/PELVIS W/O CONTRAST EXAM: CT Abdomen and Pelvis Without IV contrast CLINICAL HISTORY: urinary retention, testicular swelling wo per provider TECHNIQUE: Axial computed tomography images of the abdomen and pelvis without intravenous contrast. CONTRAST: No IV contrast. COMPARISON: [facility] dated 02/08/23 FINDINGS: LUNG BASES: There are atelectatic bands within the bilateral lower lobes. LIVER: Unremarkable. GALLBLADDER AND BILE DUCTS: Post cholecystectomy status with surgical clips in situ. PANCREAS: Unremarkable. SPLEEN: Unremarkable. ADRENAL GLANDS: Unremarkable. KIDNEYS, URETERS, AND BLADDER: There is marked concentric bladder wall thickening, more pronounced posteriorly, with perivesicular fat stranding likely reflecting cystitis. There is reflux within the bilateral ureters resulting in severe bilateral hydronephrosis and also bilateral perinephric fat stranding reflecting pyelonephritis. There is no radiopaque calculus appreciated. STOMACH AND BOWEL: Unremarkable appearance of the stomach and bowel. No evidence of bowel obstruction. No evidence suggesting enteritis or colitis. APPENDIX: No evidence of acute appendicitis on CT examination. PERITONEUM: Small 7 mm fat-containing umbilical hernia. LYMPH NODES: No lymphadenopathy is evident. REPRODUCTIVE: A well-defined hypodense collection along the right penoscrotal region, measuring 6 x 5.1 cm, concerning for abscess. VASCULATURE: Atherosclerotic changes of the abdominal aorta. BONES: No aggressive appearing osseous lesion. No acute osseous pathology evident. IMPRESSION: 1. Severe bilateral hydronephrosis with pyelonephritis and perinephric fat stranding. 2. Marked bladder wall thickening with perivesicular fat stranding, compatible with cystitis. 3. 6 x 5.1 cm right penoscrotal hypodense collection, concerning for abscess. /[place]astern DICTATED BY: ALICE LEARY Jr., MD DATE: 12/15/241458 ELECTRONICALLY SIGNED BY: ALICE LEARY Jr., MD DATE: 12/15/241458 PATIENT: ASHA SUERO MR#: [id number] : 1975 SEX: M AGE: 49 LOCATION: [facility] ORDER 103 STATUS: [facility] REPORT#: [id number] SERVICE 1032 REASON: SEPSIS ORDERING PHYSICIAN: NYLA MORALES PROCEDURE: CXR1VW - CHEST 1VW EXAM: CR Chest, 1 View. CLINICAL HISTORY: SEPSIS COMPARISON: None provided. FINDINGS: LUNGS: There is no mass, infiltrate, or acute pulmonary abnormality. Mild bibasilar atelectasis. PLEURAL SPACES: No pleural effusion or pneumothorax. MEDIASTINUM: The cardiomediastinal silhouette is within normal limits. BONES: No acute osseous abnormality. IMPRESSION: No acute cardiopulmonary pathology is evident. /[place]astern DICTATED BY: ALICE LEARY Jr., MD DATE: 12/15/24 134 ELECTRONICALLY SIGNED BY: ALICE LEARY Jr., MD DATE: 12/15/24 1349 PATIENT: ASHA SUERO MR#: [id number] : 1975 SEX: M AGE: 49 LOCATION: [facility] ORDER 1015 STATUS: REG ER REPORT#: [id number] SERVICE 1013 REASON: TESTICULAR PAIN/SWELLING ORDERING PHYSICIAN: NYLA MORALES PROCEDURE: SCROTUM - US SCROTUM & CONTENTS ADDENDUM REPORT ADDENDUM: Results were shared by telephone at 13:33 pm on 12-15-24 and acknowledged by Nyla Ordnoez /Eastern EXAM: US Scrotum. CLINICAL HISTORY: TESTICULAR PAIN/SWELLING TECHNIQUE: Real-time ultrasound of the scrotum with color Doppler and image documentation. COMPARISON: Study dated 07/29. FINDINGS: RIGHT TESTICLE: Normal in size (3.3 cm x 1.5 cm x 2.4 cm) and echogenicity, no abnormal mass. Mildly reduced Doppler flow. LEFT TESTICLE: Normal in size (3.6 cm x 1.4 cm x 2.1 cm) and echogenicity, no abnormal mass. Normal Doppler flow. EPIDIDYMIDES: Within normal limits in size and vascularity. A 3 x 3 x 3 mm cyst along the head of the right epididymis. SCROTUM: There is significant improvement of previously documented abscess measuring 2.5 x 2.2 cm along the right scrotal wall (6 mm). No hydrocele, varicocele seen. IMPRESSION: 1. Scrotal wall abscess along the right side, measuring 2.5 x 2.2 cm, showing significant improvement/reduction in size. 2. Mildly reduced blood flow to the right testicle. Clinical correlation is advised for possible intermittent right testicular torsion. /Eastern DICTATED BY: ALICE LEARY Jr., MD DATE: 12/15/24 1339 ELECTRONICALLY SIGNED BY: DATE: EXAM: US Scrotum. CLINICAL HISTORY: TESTICULAR PAIN/SWELLING TECHNIQUE: Real-time ultrasound of the scrotum with color Doppler and image documentation. COMPARISON: Study dated 07/29. FINDINGS: RIGHT TESTICLE: Normal in size (3.3 cm x 1.5 cm x 2.4 cm) and echogenicity, no abnormal mass. Mildly reduced Doppler flow. LEFT TESTICLE: Normal in size (3.6 cm x 1.4 cm x 2.1 cm) and echogenicity, no abnormal mass. Normal Doppler flow. EPIDIDYMIDES: Within normal limits in size and vascularity. A 3 x 3 x 3 mm cyst along the head of the right epididymis. SCROTUM: There is significant improvement of previously documented abscess measuring 2.5 x 2.2 cm along the right scrotal wall (6 mm). No hydrocele, varicocele seen. IMPRESSION: 1. Scrotal wall abscess along the right side, measuring 2.5 x 2.2 cm, showing significant improvement/reduction in size. 2. Mildly reduced blood flow to the right testicle. Clinical correlation is advised for possible intermittent right testicular torsion. /Moody DICTATED BY: ALICE LEARY Jr., MD DATE: 12/15/241323 ELECTRONICALLY SIGNED BY: ALICE LEARY Jr., MD DATE: 12/15/241323 ASSESSMENT: Acute on chronic renal failure Nephrotic syndrome Anemia Severe bilateral hydronephrosis with pyelonephritis Sepsis Progressive scrotal cellulitis with developing right hemiscrotum abscess Severe complicated urinary tract infection Urinary retention S/p Thomas catheter Electrolyte derangement Coronary artery disease Uncontrolled Diabetes mellitus type 2 Hyperlipidemia Hypertension PAD S/p left AKA Severe protein calorie malnutrition Obesity Debility Right eye blindness Decreased vision of left eye PLAN: Labs, diagnostic, radiologic exams reviewed and interpreted by myself and supervising physician. We have reviewed external records in detail Continue with the antibiotics as per ID Require close monitoring of renal function and electrolytes Order CBC, CMP, and electrolytes in am BiPAP as necessary, for respiratory distress Monitor blood pressure adjust medication doses as needed Avoid hypotensive episodes May use Dilaudid 0.5 mg IV every 6 hours as needed for severe pain Monitor blood sugars Strict intake, output, and daily weight should be monitored Please renally adjust medications Avoid nephrotoxic and nonsteroidal drugs Avoid contrast if possible Will continue to monitor renal function, anemia, electrolytes Treatment plan discussed with patient Questions were answered We have discussed with the other team physicians in detail about the care plan We will continue to monitor the patient closely ATTESTATION BY PHYSICIAN I have seen and examined the patient. I reviewed the documentation, medical decision making, and treatment plan as noted by the mid-level provider above. I agree with the findings and plan of care. KRUPA MANDEL MD, [facility] Dec 21, 2024 13:17
--- NOTE | 2024-12-21 14:23 | PN ---
[facility] PROGRESS NOTE Date of Service: Dec 21, 2024 Time of Service: 14:21 SUBJECTIVE: 49-year-old male with history of poorly controlled type 2 diabetes mellitus, hypertension, hyperlipidemia, GERD, peripheral arterial disease, history of coronary artery disease with prior history of coronary stenting, peripheral arterial disease with prior history of angioplasty and stenting, morbid obesity, history of scrotal cellulitis with abscess requiring hospitalization in [facility] [place] [facility] [place]. Patient presented to the ER for further evaluation of progressive pain, swelling to the right side of the scrotum ongoing for the past three days. Pain is moderate in intensity involving the right hemiscrotum. Patient reported having subjective fevers, chills as well feels. Reported having dysuria and suprapubic discomfort as well. Patient reported that he was previously hospitalized in [facility] [place] [place] on 07/[place] where he was found to have right epididymo-orchitis. Patient during his hospitalization needed incision and drainage with debridement of right perineal and Ischiorectal abscess tracking into the scrotum by Dr. Choudhury on 08/01/2024. During this hospita lization had urinary retention requiring Thomas catheter placement. Discharged to long-term acute care for further IV antibiotic therapy. Patient denies any active chest pain, nausea, vomiting, or significant abdominal pain. On presentation to the ER, patient was noted to be in urinary retention with Thomas catheter placement yielding about 400 mL of urine. Patient underwent testicular ultrasound which showed findings of right scrotal wall abscess and mildly reduced flow to the right testicle. Patient underwent CT abdomen pelvis without contrast which showed findings of severe bilateral hydronephrosis with pyelonephritis, cystitis, and 3.6 cm x 5.1 cm right penoscrotal hypodense collection concerning for abscess. Patient admitted for further treatment and management of sepsis with underlying UTI, scrotal wall cellulitis with abscess, acute kidney injury and severe hyperglycemia. Consultation with Urology requested. Patient started on broad-spectrum antibiotics. 12/16 patient remains admitted to the PCU, blood pressure 135/86, afebrile, saturating normal on room air, WBC 14.8, hemoglobin 10.3, hematocrit 32.5, platelet count of 424. Sodium 131, potassium 4.4, CO2 of 19, BUN of 79, creatinine 3.3, uric acid 10.6, phosphorus 5.0. Iron level at 15. Blood gas with an ABG showing a pH of 7.32, pCO2 38, bicarb 19.3. Blood cultures no growth after 24 hours. Urine culture [id number] CFU, identification and sensitivity in progress. Patient evaluated by urologist, they abscesses and spontaneously draining, but the patient is still going to need formal incision and drainage. Clinical exam did not reveal findings suggestive of torsion. There was scrotal wall thickening worse of the right side with cellulitis. Recommended IV antibiotics for now. I will request a stat ABG to assess metabolic status. Patient with low iron level, follow stool occult blood, if positive we will request GI consultation. Patient currently on ferrous sulfate 325 mg p.o. daily. Infectious Disease consultation requested, follow input and recommendation. Patient with creatinine of 3.3, nephrology input noted and appreciated. Patient is started on insulin glargine 20 units subcutaneously daily as well as insulin sliding scale, continue to follow endocrinology input and recommendation. Renal ultrasound will be ordered, discussed with the director digital, if hydronephrosis we will request Urology consult. Follow up PSA level. During my visit patient comfortably in bed, alert oriented x3, no acute events overnight, results of renal function discussed with the patient and the at bedside. 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 Blood pressure 161/79, heart rate of 67, saturating 99% 2 L nasal cannula. CBC with a hemoglobin 11.0, hematocrit 34.7, WBC 12.4, platelet count 497. Sodium 132, potassium 5.1, BUN of 67, creatinine 2.3, (improving compared to yesterday) random glucose 430, total calcium 8.8, magnesium 2.0. Ammonia level less than 10. ABG showing a pH of 7.32, bicarb of 18.4. Renal ultrasound showed urinary bladder wall thickening consult for cystitis, previously bilateral moderate hydroureteronephrosis not visualized. CT head without contrast no acute intracranial abnormality, stable encephalomalacia in the bilateral inferior cerebellar hemispheres suggesting sequela of prior insult, no significant interval change. Ultrasound carotids no hemodynamically significant stenosis bilateral carotid or vertebral arteries. Continue the patient on broad-spectrum IV antibiotics, follow results of intraoperative cultures, continue to follow ID input recommendation, follow urology input and recommendation. Neurology consultation requested, we will follow input and recommendation. Patient upgraded to the ICU, continue close monitoring of the patient's mental status. Follow critical care input and recommendations. Renal function slowly improving, continue to monitor in a.m., continue to assess metabolic status with daily ABG, patient is started on sodium bicarbonate drip. Continue long-acting insulin with glargine 50 units subcutaneously daily as well as insulin sliding scale. A.m. labs At the time of my visit, patient is comfortably in bed, alert and oriented x3, results of CT head discussed with the patient, all questions answered, he denies dizziness, no headache, no chest pain, shortness shortness for breath, no nausea, no vomiting. No weakness to both upper or lower extremities, able to move four extremities well. Able to show me all his teeth without deviation of the mouth. not present in the room at the time of my visit. 12/18 patient remains admitted to the ICU, hemodynamically stable, BP 133/50, afebrile, saturating normal on room air, during my visit the patient is alert oriented x3, denies dizziness, no headache, no chest pain, shortness shortness for breath, no nausea, no vomiting, no focal neurological deficit noted, no slurry speech, able to move both upper and lower extremity. Hemoglobin 10.5, hematocrit 32.2, WBC of 11.2. Results of culture from scrotal abscess positive for Streptococcus agalactiae group B, urine culture positive for yeast. Echocardiogram done, the apical anterior lateral, inferolateral carrillo are severely hypokinetic, the apical inferior wall is thin, scarring and akinetic, LVEF 40%, indeterminate diastolic dysfunction, trace mitral regurgitation, no pericardial effusion. Neck MRA no significant stenosis appreciated. Patient will be downgraded to the PCU, continue broad-spectrum antibiotics, continue to follow urology and ID input and recommendations. 12/19 patient remains admitted to the PCU, BP 151/82, afebrile, saturating normal on room air. WBC 11.3, hemoglobin 10.5, hematocrit 31.9, with a platelet count of 564. BUN 55, creatinine 1.7. Scrotal abscess culture positive for Irina albicans, Streptococcus agalactiae group B and is species. Discharge plan discussed with case management, who is making arrangements for the patient to be discharged to LTAC. Urology input noted and appreciated, patient is status post incision and drainage of tip. José abscess extending towards the rectal region, possibility of the rectal fistula needs to be ruled out. We will request surgical consultation. Continue wound care, continue broad-spectrum antibiotics, continue to follow ID input recommendation, continue hemodialysis per Nephrology recommendations. At the time of my visit the patient is comfortably in bed, alert oriented x3, no focal neurological deficit, plan is to downgraded the patient to the medical floor. 12/20 patient downgraded from the PCU to the medical floor, remains hemodynamically stable, afebrile, saturating normal on room air. Discharge plan discussed again with case management, still pending insurance approval for the patient to be discharged to LTAC. Per urology recommendation, General surgery was contacted to evaluate for the possibility of rectal fistula, surgical input noted and appreciated, continue conservative management with the wound care for now. Endocrinology input noted and appreciated, continue long- acting as well as short-acting insulin, with the adjustments as needed. At the time of my visit patient comfortably in bed, alert oriented x3, no new focal neurological deficits, denied chest pain, shortness shortness for breath, no nausea, no vomiting, no abdominal pain. 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 General surgery consultation requested per urology recommendation to evaluate for possible rectal fistula, per General surgery medical management for now with the antibiotics, can follow up as an outpatient. Case management consulted for discharge plan to [facility], pending acceptance. During my visit today he remains comfortably in bed, alert oriented x3, hemodynamically stable, no acute events overnight per discussion with the RN. He is getting broad-spectrum IV antibiotics. Wound VAC in place. REVIEW OF SYSTEMS CONSTITUTIONAL: fevers, chills and malaise NEUROLOGICAL: Denies headache, amaurosis fugax, motor weakness, sensory deficit, vertigo/spinning sensation, gait abnormalities, or tremors. ENT: No hearing loss, otalgia, otorrhea, rhinitis, rhinorrhea, hoarseness, or sore throat. CARDIOVASCULAR: Denies any exertional angina, dyspnea on exertion, orthopnea, paroxysmal nocturnal dyspnea, palpitations, life-threatening arrhythmias, claudication. PULMONARY: Denies any shortness of breath, cough, phlegm/sputum, hemoptysis, pleuritic chest pain. SLEEP: Denies morning headaches, daytime somnolence or napping. Denies difficulty falling asleep, staying asleep, waking from sleep. Denies knowledge of snoring. GASTROINTESTINAL: Denies any type of dysphagia to either liquids or solids. Denies nausea, vomiting, pyrosis, early satiety, abdominal pain, diarrhea, constipation, or changes in stool consistency or caliber. Denies coffee-ground emesis, hematemesis, hematochezia, or melanotic stools. GENITOURINARY: redness, swelling and pain to the right side of the scrotum ENDOCRINOLOGIC: poorly controlled DM II with hyperglycemia HEMATOLOGIC: Denies thrombophilia/previous clots, or coagulopathy/bleeding disorders. ONCOLOGIC: Denies personal history of malignancy. DERMATOLOGIC: redness and swelling to the right richie-scrotum PSYCHIATRIC: Denies any suicidal or homicidal ideation. Denies hallucinations. PHYSICAL EXAM GENERAL APPEARANCE: The patient is awake, alert, and oriented, in no acute cardiopulmonary distress. NEUROLOGICAL: Cranial nerves II-XII grossly intact. Motor is 5/5 in bilateral upper and lower extremities proximal to distal. No sensory deficits. HEENT: Face is symmetric. Pupils are equal and reactive. Extraocular movements are intact. NECK: Supple. No JVD. No thyromegaly. No submental, submandibular, pre- /postauricular, occipital or supraclavicular lymphadenopathy. CHEST: Normal chest expansion. No Telemetry. LUNGS: Absence of any rales, rhonchi or any wheezing. CARDIOVASCULAR: Regular. S1 and S2 normal. No appreciable rubs, murmurs or gallops. ABDOMEN: Soft, nontender, and nondistended. There is no rebound, voluntary guarding, or rigidity. : Thomas catheter noted draining cloudy urine, significant redness and swelling noted of the scrotum, mild tenderness to palpation EXTREMITIES: No significant swelling noted Vital Signs (last 8hr) Date Time Temp Pulse Resp B/P (MAP) Pulse Ox O2 Delivery O2 Flow Rate FiO2 12/21/24 12:00 98.4 74 19 140/84 96 Room Air 12/21/24 08:00 98.4 80 19 147/83 95 Room Air 12/21/24 08:00 95 Room Air* 0 21 LABS: Laboratory: Test 12/21/24 10:51 12/21/24 04:14 12/20/24 03:53 Range/Units Whole Blood Glucose 237 H 70-110 MG/DL White Blood Count 14.0 H 4.8-10.8 K/uL Red Blood Count 4.29 L 4.50-6.20 MIL/uL Hemoglobin 10.8 L 14.0-18.0 g/dL Hematocrit 34.3 L 42-54 % Mean Corpuscular Volume 80.0 79-99 fL Mean Corpuscular Hemoglobin 25.2 L 27.0-33.0 pg Mean Corpuscular Hemoglobin Concent 31.5 L 32.0-36.0 g/dL Red Cell Distribution Width 13.7 11.0-15.5 % Platelet Count 580 H 130-400 K/uL Mean Platelet Volume 9.1 7.5-10.5 fL Nucleated Red Blood Cells 0.0 0.0-0.19 % Sodium Level 136 136-145 mmol/L Potassium Level 4.3 3.5-5.1 mmol/L Chloride Level 102 101-111 mmol/L Carbon Dioxide Level 26 21-32 mmol/L Blood Urea Nitrogen 39 H 7-18 mg/dL Creatinine 1.2 0.5-1.3 mg/dL Glomerular Filtration Rate Calc 75 >90 mL/min Random Glucose 228 H 70-105 mg/dL Total Calcium 8.3 L 8.5-10.1 mg/dL Magnesium Level 1.70 L 1.80-2.40 mg/dL Total Bilirubin 0.2 0.2-1.0 mg/dL Aspartate Amino Transf (AST/SGOT) 25 10-37 U/L Alanine Aminotransferase (ALT/SGPT) 26 12-78 U/L Alkaline Phosphatase 207 H 50-136 U/L Total Protein 7.3 6.0-8.3 g/dL Albumin 1.7 L 3.5-5.0 g/dL Uric Acid 7.5 H 2.6-7.2 mg/dL Thyroid Stimulating Hormone (TSH) 3.14 # 0.36-3.74 uIU/mL Current Medications Medications (Trade) Dose Ordered Sig/Gaby Route PRN Reason Start Time Stop Time Status Last Admin Dose Admin Acetaminophen (acetaMINOPHEN) 1,000 mg ONCE IVPB 12/17/24 17:00 12/18/24 18:10 DC 12/17/24 17:11 1,000 MG Aspirin (Aspirin 81mg Ec Tab) 81 mg DAILY PO 12/18/24 09:00 01/17/25 08:59 12/21/24 09:05 81 MG Atorvastatin Calcium (LIPItor 40MG) 40 mg HS PO 12/15/24 21:00 01/14/25 20:59 12/20/24 20:48 40 MG Dextrose (D50w) 50 ml AD PRN IV HYPOGLYCEMIA PROTOCOL 12/15/24 13:30 01/14/25 13:29 Docusate Sodium (COLace LIQUID 100MG/10ML) 50 mg DAILY PO 12/21/24 11:00 01/20/25 10:59 12/21/24 11:52 50 MG Famotidine (Pepcid 20mg Vial) 20 mg DAILY IV 12/16/24 09:00 12/17/24 10:49 DC 12/17/24 08:53 20 MG Ferrous Sulfate (Ferrous Sulfate) 325 mg DAILY PO 12/16/24 09:00 01/15/25 08:59 12/21/24 09:06 325 MG Fluconazole/ Sodium Chloride 100 ml @ 100 mls/hr DAILY IV 12/21/24 09:00 01/20/25 08:59 12/21/24 09:05 100 MLS/HR Glucagon (Glucagon 1mg Kit) 1 mg AD PRN IM HYPOGLYCEMIA PROTOCOL 12/15/24 13:30 01/14/25 13:29 Heparin Sodium (Porcine) (HEParin 5,000 UNIT VIAL) 5,000 unit BID SQ 12/17/24 11:00 01/16/25 10:59 12/21/24 09:18 5,000 UNIT Home Med (Home Medication) (Sennosides/ Docusate Sodium (Colace 2-i... DAILY PO 12/16/24 09:00 12/21/24 10:37 DC Hydralazine HCl (APRESOLine 20MG INJ) 5 mg Q6H PRN IV ADMINISTER FOR SBP > 160 12/15/24 14:30 01/14/25 14:29 Hydromorphone HCl (DiLAUDid 0.5MG INJ) 0.2 mg Q4H PRN IVP SEVERE PAIN (7-10) 12/21/24 12:21 12/26/24 12:20 Hydromorphone HCl (DiLAUDid 0.5MG INJ) 0.2 mg Q6H PRN IVP SEVERE PAIN (7-10) 12/15/24 13:30 12/18/24 09:00 DC 12/17/24 04:34 0.2 MG Insulin Glargine (LANtus 100 UNITS/ML 10 ML VIAL) 20 units DAILY SQ 12/16/24 09:00 12/17/24 07:32 DC Insulin Glargine (LANtus 100 UNITS/ML 10 ML VIAL) 20 units HS SQ 12/15/24 21:00 12/16/24 06:19 DC 12/15/24 21:05 20 UNITS Insulin Glargine (LANtus 100 UNITS/ML 10 ML VIAL) 25 units HS SQ 12/15/24 21:00 12/15/24 18:52 DC Insulin Glargine (LANtus 100 UNITS/ML 10 ML VIAL) 50 units DAILY SQ 12/17/24 09:00 01/16/25 08:59 12/21/24 09:20 50 UNITS Insulin Human Regular (humuLIN R 100 UNIT/ML 3ML) 8 unit TIDAC SQ 12/16/24 07:30 12/17/24 07:32 DC 12/17/24 06:59 8 UNIT Insulin Human Regular (humuLIN R 100 UNIT/ML 3ML) 15 unit TIDAC SQ 12/17/24 07:30 12/20/24 21:39 DC 12/20/24 16:01 15 UNIT Insulin Human Regular (humuLIN R 100 UNIT/ML 3ML) 16 unit TIDAC SQ 12/21/24 07:30 01/20/25 07:29 12/21/24 12:03 16 UNIT Insulin Human Regular (humuLIN R 100 UNIT/ML 3ML) INSULIN SLIDING SCAL... ACHS SQ 12/15/24 16:30 12/16/24 06:19 DC 12/15/24 21:03 5 UNIT Insulin Human Regular (humuLIN R 100 UNIT/ML 3ML) INSULIN SLIDING SCAL... ACHS SQ 12/16/24 07:30 01/15/25 07:29 12/21/24 12:03 6 UNIT Leptospermum Honey ([facility]) 1 APPLICATION ONCE STAT TP 12/19/24 16:04 12/19/24 16:06 DC 12/19/24 16:35 1 APPL Leptospermum Honey ([facility]) 1 APPL QMOWEFR TP 12/21/24 09:00 01/20/25 08:59 12/21/24 09:43 1 APPL Linezolid 300 ml @ 150 mls/hr Q12H IV 12/15/24 21:00 12/17/24 19:54 DC 12/17/24 08:53 150 MLS/HR Linezolid 300 ml @ 150 mls/hr Q12H IV 12/17/24 21:00 12/19/24 20:59 DC 12/19/24 10:01 150 MLS/HR Magnesium Sulfate 50 ml @ 0 mls/hr PROTOCOL IV 12/20/24 10:00 01/19/25 09:59 12/21/24 06:41 25 MLS/HR Magnesium Sulfate 50 ml @ 0 mls/hr PROTOCOL PRN IV MAGNESIUM PROTOCOL 12/18/24 09:30 12/20/24 09:53 DC 12/18/24 10:42 25 MLS/HR Meropenem (Merrem 1gm) 1 gm Q12H IVPB 12/15/24 16:00 12/17/24 19:54 DC 12/17/24 17:11 1 GM Meropenem (Merrem 1gm) 1 gm Q12H IVPB 12/18/24 04:00 12/20/24 23:00 DC 12/20/24 16:01 1 GM Mupirocin (Bactroban Oint) 1 APPL BID TP 12/21/24 12:30 01/20/25 12:29 Naloxone HCl (NARcan HCL 1 MG/ ML 2ML SYG) 2 mg ONCE IV 12/17/24 11:00 12/17/24 10:36 DC Ondansetron HCl (zoFRAN 4MG INJ) 4 mg Q6H6 PRN IVP NAUSEA/VOMITING 12/21/24 02:30 01/20/25 02:29 12/21/24 03:17 4 MG Pantoprazole Sodium (PROTonix 40MG INJ) 40 mg DAILY IVP 12/18/24 09:00 01/17/25 08:59 12/21/24 09:19 40 MG Pharmacy Profile Note (Pharmacy Communication) 1 each ONCE MISC 12/15/24 13:30 12/15/24 14:18 DC Sennosides (Senna) 1 tab DAILY PO 12/21/24 11:00 01/20/25 10:59 12/21/24 11:53 1 TAB Sodium Bicarbonate 150 meq/Dextrose 1,150 ml @ 50 mls/hr Q23H IVP 12/17/24 11:00 12/18/24 11:36 DC 12/18/24 08:25 50 MLS/HR Sodium Bicarbonate (Sodium Bicarbonate) 650 mg QID PO 12/16/24 13:00 01/15/25 12:59 12/21/24 09:05 650 MG Sodium Chloride 1,000 ml @ 75 mls/hr [id number] IV 12/15/24 13:30 12/17/24 10:49 DC 12/17/24 01:40 75 MLS/HR Tamsulosin HCl (FloMAX) 0.4 mg DAILY PO 12/16/24 09:00 01/15/25 08:59 12/21/24 09:06 0.4 MG Vancomycin HCl 250 ml @ 125 mls/hr Q48H IV 12/17/24 11:00 12/15/24 13:19 DC Vancomycin HCl (Vancomycin Protocol) 1 each AD IV 12/15/24 11:00 12/15/24 23:52 DC Vitamin B Complex/ Vit C/Folic Acid (Nephrovite Tablet) 1 cap DAILY PO 12/16/24 09:00 01/15/25 08:59 12/21/24 09:06 1 CAP DIAGNOSTICS / RADIOLOGY: [ ] ASSESSMENT: Sepsis secondary to complicated urinary tract infection and scrotal cellulitis with abscess, POA Progressive scrotal cellulitis with developing right hemiscrotal abscess, POA status post excisional debridement of necrotic soft tissue from the perineum secondary to 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) Wound culture positive for Irina albicans, Streptococcus agalactiae group B and yeast species Severe complicated urinary tract infection, POA Urinary retention status post Thomas catheter placement, POA Bilateral hydronephrosis, POA Acute kidney injury with underlying history of chronic kidney disease, POA Severe nonketotic hyperglycemia with poorly controlled type 2 diabetes mellitus, POA History of Farxiga use as outpatient, POA Hypertension, POA History of dual antiplatelet therapy with aspirin and Plavix as outpatient, POA History of coronary artery disease with prior history of coronary intervention and stenting, POA History of peripheral arterial disease with history of lower extremity angioplasty and stenting, POA History of TIA, POA Hypertension, POA Hyperlipidemia, POA Debility, POA Right eye blindness, POA Decreased vision of left eye, POA History of iron deficiency anemia, POA History of hospitalization in [facility] [place] for right epididymo-orchitis with abscess requiring surgical drainage,07/2024, POA PLAN: patient remains admitted to the medical floor, status post excisional debridement of necrotic soft tissue from the perineum secondary to 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) Wound culture positive for Irina albicans, Streptococcus agalactiae group B and yeast species. General surgery consultation requested per urology recommendation to evaluate for possible rectal fistula, per General surgery medical management for now with the antibiotics, can follow up as an outpatient. Case management consulted for discharge plan to [facility], pending acceptance. NEURO: Minimize central acting medications as possible. Fall Precautions. Well lighted room through the day and minimize interruptions through the night to prevent acute delirium. PULMONARY: Supplemental 02 as needed BiPAP as necessary, for respiratory distress Titrate Fio2 to keep Spo2 > or = 90% DuoNebs and CPT as needed IS hourly while awake for pulmonary hygiene prn Out of bed to chair as tolerated Maintain aspiration precautions at all times CARDIOVASCULAR: Follow hemodynamics. Vital signs per facility protocol GI & NUTRITION: Continue nutritional support Aspirations precautions Prokinetic agents and laxatives as needed KIDNEYS & ELECTROLYTES: Strict monitoring of intake and output Daily weights Avoid nephrotoxic agents Monitor electrolytes and replace as needed Goal urine output of 30mL/hr or 0.5mL/kg/hr Medications to be dosed according to renal function. Avoid contrast if possible ENDOCRINE: Maintain blood glucose between 100-180 at all times. Insulin sliding scale for blood glucose management Hypoglycemia and hyperglycemia protocol in place INFECTIOUS DISEASE: Trend temperature, WBC and procalcitonin level Follow cultures, deescalate antibiotics as soon as possible. Panculture if new onset fever HEMATOLOGY & COAGULATION: Monitor H&H. Keep Hgb > 7 Transfuse 1 unit of PRBC for Hgb < 7 Transfuse 1 pack of platelets of platelets < 20, 000 Watch for any signs and symptoms of bleeding SKIN: Pressure ulcer prevention per facility protocol Specialty mattress as needed ORTHO/REHAB Continue PT/OT PRN: MEDICATIONS Tylenol 650 mg po every 4 hrs for fever zofran 4 mg IV every 6 hrs for n/v Hydralazine 5 mg IV every 4 hrs systolic pressure > 160 bowel regiment: lactulose 20 gm PO BID PRN constipation Supportive measures: Continue GI and DVT prophylaxis Disposition: Pending improvement in clinical condition All questions answered time spent: > 35 min JANET IVAN MD Dec 21, 2024 14:23
--- NOTE | 2024-12-21 14:26 | DS ---
Discharge Summary Hospital Course Summary: 49-year-old male with history of poorly controlled type 2 diabetes mellitus, hypertension, hyperlipidemia, GERD, peripheral arterial disease, history of coronary artery disease with prior history of coronary stenting, peripheral arterial disease with prior history of angioplasty and stenting, morbid obesity, history of scrotal cellulitis with abscess requiring hospitalization in [facility] on [place]. Patient presented to the ER for further evaluation of progressive pain, swelling to the right side of the scrotum ongoing for the past three days. Pain is moderate in intensity involving the right hemiscrotum. Patient reported having subjective fevers, chills as well feels. Reported having dysuria and suprapubic discomfort as well. Patient reported that he was previously hospitalized in [facility] on 07/2024 where he was found to have right epididymo-orchitis. Patient during his hospitalization needed incision and drainage with debridement of right perineal and Ischiorectal abscess tracking into the scrotum by Dr. Choudhury on 08/01/2024. During this hospitalization had urinary retention requiring Thomas catheter placement. Discharged to long-term acute care for further IV antibiotic therapy. Patient denies any active chest pain, nausea, vomiting, or significant abdominal pain. On presentation to the ER, patient was noted to be in urinary retention with Thomas catheter placement yielding about 400 mL of urine. Patient underwent testicular ultrasound which showed findings of right scrotal wall abscess and mildly reduced flow to the right testicle. Patient underwent CT abdomen pelvis without contrast which showed findings of severe bilateral hydronephrosis with pyelonephritis, cystitis, and 3.6 cm x 5.1 cm right penoscrotal hypodense collection concerning for abscess. Patient admitted for further treatment and management of sepsis with underlying UTI, scrotal wall cellulitis with abscess, acute kidney injury and severe hyperglycemia. Consultation with Urology requested. Patient started on broad-spectrum antibiotics. 12/16 patient remains admitted to the PCU, blood pressure 135/86, afebrile, saturating normal on room air, WBC 14.8, hemoglobin 10.3, hematocrit 32.5, platelet count of 424. Sodium 131, potassium 4.4, CO2 of 19, BUN of 79, creatinine 3.3, uric acid 10.6, phosphorus 5.0. Iron level at 15. Blood gas with an ABG showing a pH of 7.32, pCO2 38, bicarb 19.3. Blood cultures no growth after 24 hours. Urine culture [id number] CFU, identification and sensitivity in progress. Patient evaluated by urologist, they abscesses and spontaneously draining, but the patient is still going to need formal incision and drainage. Clinical exam did not reveal findings suggestive of torsion. There was scrotal wall thickening worse of the right side with cellulitis. Recommended IV antibiotics for now. I will request a stat ABG to assess metabolic status. Patient with low iron level, follow stool occult blood, if positive we will request GI con sultation. Patient currently on ferrous sulfate 325 mg p.o. daily. Infectious Disease consultation requested, follow input and recommendation. Patient with creatinine of 3.3, nephrology input noted and appreciated. Patient is started on insulin glargine 20 units subcutaneously daily as well as insulin sliding scale, continue to follow endocrinology input and recommendation. Renal ultrasound will be ordered, discussed with the missile pad mechanic, if hydronephrosis we will request Urology consult. Follow up PSA level. During my visit patient comfortably in bed, alert oriented x3, no acute events overnight, results of renal function discussed with the patient and the at bedside. 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 Blood pressure 161/79, heart rate of 67, saturating 99% 2 L nasal cannula. CBC with a hemoglobin 11.0, hematocrit 34.7, WBC 12.4, platelet count 497. Sodium 132, potassium 5.1, BUN of 67, creatinine 2.3, (improving compared to yesterday) random glucose 430, total calcium 8.8, magnesium 2.0. Ammonia level less than 10. ABG showing a pH of 7.32, bicarb of 18.4. Renal ultrasound showed urinary bladder wall thickening consult for cystitis, previously bilateral moderate hydroureteronephrosis not visualized. CT head without contrast no acute intracranial abnormality, stable encephalomalacia in the bilateral inferior cerebellar hemispheres suggesting sequela of prior insult, no significant interval change. Ultrasound carotids no hemodynamically significant stenosis bilateral carotid or vertebral arteries. Continue the patient on broad-spectrum IV antibiotics, follow results of i ntraoperative cultures, continue to follow ID input recommendation, follow urology input and recommendation. Neurology consultation requested, we will follow input and recommendation. Patient upgraded to the ICU, continue close monitoring of the patient's mental status. Follow critical care input and recommendations. Renal function slowly improving, continue to monitor in a.m., continue to assess metabolic status with daily ABG, patient is started on sodium bicarbonate drip. Continue long-acting insulin with glargine 50 units subcutaneously daily as well as insulin sliding scale. A.m. labs At the time of my visit, patient is comfortably in bed, alert and oriented x3, results of CT head discussed with the patient, all questions answered, he denies dizziness, no headache, no chest pain, shortness shortness for breath, no nausea, no vomiting. No weakness to both upper or lower extremities, able to move four extremities well. Able to show me all his teeth without deviation of the mouth. not present in the room at the time of my visit. 12/18 patient remains admitted to the ICU, hemodynamically stable, BP 133/50, afebrile, saturating normal on room air, during my visit the patient is alert oriented x3, denies dizziness, no headache, no chest pain, shortness shortness for breath, no nausea, no vomiting, no focal neurological deficit noted, no slurry speech, able to move both upper and lower extremity. Hemoglobin 10.5, hematocrit 32.2, WBC of 11.2. Results of culture from scrotal abscess positive for Streptococcus agalactiae group B, urine culture positive for yeast. Echocardiogram done, the apical anterior lateral, inferolateral carrillo are severely hypokinetic, the apical inferior wall is thin, scarring and akinetic, LVEF 40%, indeterminate diastolic dysfunction, trace mitral regurgitation, no pericardial effusion. Neck MRA no significant stenosis appreciated. Patient will be downgraded to the PCU, continue broad-spectrum antibiotics, continue to follow urology and ID input and recommendations. 12/19 patient remains admitted to the PCU, BP 151/82, afebrile, saturating normal on room air. WBC 11.3, hemoglobin 10.5, hematocrit 31.9, with a platelet count of 564. BUN 55, creatinine 1.7. Scrotal abscess culture positive for Irina albicans, Streptococcus agalactiae group B and is species. Discharge plan discussed with case management, who is making arrangements for the patient to be discharged to LTAC. Urology input noted and appreciated, patient is status post incision and drainage of tip. José abscess extending towards the rectal region, possibility of the rectal fistula needs to be ruled out. We will request surgical consultation. Continue wound care, continue broad-spectrum antibiotics, continue to follow ID input recommendation, continue hemodialysis per Nephrology recommendations. At the time of my visit the patient is comfortably in bed, alert oriented x3, no focal neurological deficit, plan is to downgraded the patient to the medical floor. 12/20 patient downgraded from the PCU to the medical floor, remains hemodynamically stable, afebrile, saturating normal on room air. Discharge plan discussed again with case management, still pending insurance approval for the patient to be discharged to LTAC. Per urology recommendation, General surgery was contacted to evaluate for the possibility of rectal fistula, surgical input noted and appreciated, continue conservative management with the wound care for now. Endocrinology input noted and appreciated, continue long-acting as well as short-acting insulin, with the adjustments as needed. At the time of my visit patient comfortably in bed, alert oriented x3, no new focal neurological deficits, denied chest pain, shortness shortness for breath, no nausea, no vomiting, no abdominal pain. 12/21 patient is alert oriented x3, hemodynamically stable, no acute events overnight, getting broad-spectrum IV antibiotics, wound VAC in place, working properly, getting good pain control with current medical management. 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) Wound culture positive for Irina albicans, Streptococcus agalactiae group B and yeast species Severe complicated urinary tract infection, POA Urinary retention status post Thomas catheter placement, POA Bilateral hydronephrosis, POA Acute kidney injury with underlying history of chronic kidney disease, POA Severe nonketotic hyperglycemia with poorly controlled type 2 diabetes mellitus, POA History of Farxiga use as outpatient, POA Hypertension, POA History of dual antiplatelet therapy with aspirin and Plavix as outpatient, POA History of coronary artery disease with prior history of coronary intervention and stenting, POA History of peripheral arterial disease with history of lower extremity angioplasty and stenting, POA History of TIA, POA Hypertension, POA Hyperlipidemia, POA Debility, POA Right eye blindness, POA Decreased vision of left eye, POA History of iron deficiency anemia, POA History of hospitalization in [facility] for right epididymo-orchitis with abscess requiring surgical drainage,07/2024, POA Discharge Instructions: Patient to be discharged to [facility] for continuation of medical care. Return to the hospital if condition changes. Home Medications: Reported Medications Insulin Glargine,Hum.rec.anlog (Lantus Solostar) 100 Unit/Ml (3 Ml) Insuln.pen, 50 UNIT SQ DAILY, SYRINGE 12/15/24 Insulin Lispro (Insulin Lispro Kwikpen U-100) 100 Unit/Ml Insuln.pen, 5 UNIT SQ BIDPC, SYRINGE 12/15/24 Aspirin (Aspirin EC) 81 Mg Tablet.dr, 81 MG PO DAILY, TAB 12/15/24 Sennosides/Docusate Sodium (Colace 2-in-1 Tablet) 8.6 Mg-50 Mg Tablet, 1 EACH PO DAILY, TAB 12/15/24 Losartan Potassium (Losartan Potassium) 50 Mg Tablet, 50 MG PO DAILY, TAB 12/15/24 Clopidogrel Bisulfate (Clopidogrel) 75 Mg Tablet, 75 MG PO DAILY, TAB 12/15/24 Tamsulosin HCl (Flomax) 0.4 Mg Cap.er.24h, 0.4 MG PO DAILY, CAPSULE. 12/15/24 Sitagliptin Phos/Metformin HCl (Janumet 50-1,000 mg Tablet) 50 Mg-1,000 Mg Tablet, 1 EACH PO BIDMEALS, TAB 12/15/24 Ferrous Sulfate (Ferrous Sulfate) 325 Mg (65 Mg Iron) Ectab, 1 TAB PO DAILY for 30 Days, #30 TAB 0 Refills 07/27/24 Clotrimazole (Clotrimazole) 1 % Cream..g., 1 APPL TP BID for 7 Days, #15 GM 0 Refills apply to affected area(s) 07/27/24 Atorvastatin Calcium (LIPITOR) 40 Mg Tablet, 40 MG PO HS, TAB 12/29/22 Discontinued Reported Medications Dapagliflozin Propanediol (Farxiga) 5 Mg Tablet, 1 TAB PO DAILY for 30 Days, #30 TAB 0 Refills 07/27/24 Gabapentin (Gabapentin) 100 Mg Capsule, 100 MG PO BID, CAP 12/29/22 Time spent arranging discharge: 31-60 minutes JANET IVAN MD Dec 21, 2024 14:26
[2024-12-21] MEDS ORDERED: MAGNESIUM 2GM PREMIX 50ML 50 ML IV SCH (14:30)
[2024-12-21] MEDS: MUPIROCIN OINTMENT 22 GM TUBE TP SCH (15:18)
--- NOTE | 2024-12-21 22:56 | PN ---
Endocrinology progress note DOS: 12/21/24 subjective: hyperglycemia is improving now s/p surgery for deep perineal abscess.s/p wound vac. glucose are improving. Home diabetic regimen: lantus 50 units daily, lispro insulin 25 units tid before meals, janumet mg bid Hba1c 14% REVIEW OF SYSTEMS CONSTITUTIONAL: fevers, chills and malaise NEUROLOGICAL: Denies headache, amaurosis fugax, motor weakness, sensory deficit, vertigo/spinning sensation, gait abnormalities, or tremors. ENT: No hearing loss, otalgia, otorrhea, rhinitis, rhinorrhea, hoarseness, or sore throat. CARDIOVASCULAR: Denies any exertional angina, dyspnea on exertion, orthopnea, paroxysmal nocturnal dyspnea, palpitations, life-threatening arrhythmias, claudication. PULMONARY: Denies any shortness of breath, cough, phlegm/sputum, hemoptysis, pleuritic chest pain. SLEEP: Denies morning headaches, daytime somnolence or napping. Denies difficulty falling asleep, staying asleep, waking from sleep. Denies knowledge of snoring. GASTROINTESTINAL: Denies any type of dysphagia to either liquids or solids. Denies nausea, vomiting, pyrosis, early satiety, abdominal pain, diarrhea, constipation, or changes in stool consistency or caliber. Denies coffee-ground emesis, hematemesis, hematochezia, or melanotic stools. GENITOURINARY: redness, swelling and pain to the right side of the scrotum ENDOCRINOLOGIC: poorly controlled DM II with hyperglycemia HEMATOLOGIC: Denies thrombophilia/previous clots, or coagulopathy/bleeding disorders. ONCOLOGIC: Denies personal history of malignancy. DERMATOLOGIC: redness and swelling to the right richie-scrotum PSYCHIATRIC: Denies any suicidal or homicidal ideation. Denies hallucinations. 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 Choudhury on 07/2024 PAST SOCIAL HISTORY: [Patient lives with his . Patient denies alcohol tobacco and recreational drug use . Patient states he used to smoke cigarette for 17 years two packs per day and quit two years ago] Allergies: Morphine causes headache Home medications: patient reports being on [id number] mg daily, Prfmjs10 mg daily, Lantus 50 units daily, insulin lispro,5 units b.i.d. p.c., losartan 50 mg daily, Colace daily, Janumet twice daily, Flomax 0.4 mg daily, clotrimazole cream twice daily, ferrous [id number] mg daily, Lipitor 40 mg daily Coded Allergies: morphine (Unverified Allergy, Intermediate, HALLUCINATIONS, 02/13/23) DIAGNOSTICS / RADIOLOGY: SERVICE 1040 REASON: urinary retention, testicular swelling wo per provider ORDERING PHYSICIAN: NYLA MORALES PROCEDURE: ABD PEL WO - CT ABDOMEN/PELVIS W/O CONTRAST EXAM: CT Abdomen and Pelvis Without IV contrast CLINICAL HISTORY: urinary retention, testicular swelling wo per provider TECHNIQUE: Axial computed tomography images of the abdomen and pelvis without intravenous contrast. CONTRAST: No IV contrast. COMPARISON: [facility] dated 02/08/23 FINDINGS: LUNG BASES: There are atelectatic bands within the bilateral lower lobes. LIVER: Unremarkable. GALLBLADDER AND BILE DUCTS: Post cholecystectomy status with surgical clips in situ. PANCREAS: Unremarkable. SPLEEN: Unremarkable. ADRENAL GLANDS: Unremarkable. KIDNEYS, URETERS, AND BLADDER: There is marked concentric bladder wall thickening, more pronounced posteriorly, with perivesicular fat stranding likely reflecting cystitis. There is reflux within the bilateral ureters resulting in severe bilateral hydronephrosis and also bilateral perinephric fat stranding reflecting pyelonephritis. There is no radiopaque calculus appreciated. STOMACH AND BOWEL: Unremarkable appearance of the stomach and bowel. No evidence of bowel obstruction. No evidence suggesting enteritis or colitis. APPENDIX: No evidence of acute appendicitis on CT examination. PERITONEUM: Small 7 mm fat-containing umbilical hernia. LYMPH NODES: No lymphadenopathy is evident. REPRODUCTIVE: A well-defined hypodense collection along the right penoscrotal region, measuring 6 x 5.1 cm, concerning for abscess. VASCULATURE: Atherosclerotic changes of the abdominal aorta. BONES: No aggressive appearing osseous lesion. No acute osseous pathology evident. IMPRESSION: 1. Severe bilateral hydronephrosis with pyelonephritis and perinephric fat stranding. 2. Marked bladder wall thickening with perivesicular fat stranding, compatible with cystitis. 3. 6 x 5.1 cm right penoscrotal hypodense collection, concerning for abscess. /[place] DICTATED BY: ALICE LEARY Jr., MD DATE: 12/15/24 1459 ELECTRONICALLY SIGNED BY: ALICE LEARY Jr., MD DATE: 12/15/24 1459 ELECTRONICALLY SIGNED BY: DATE: EXAM: US Scrotum. CLINICAL HISTORY: TESTICULAR PAIN/SWELLING TECHNIQUE: Real-time ultrasound of the scrotum with color Doppler and image documentation. COMPARISON: Study dated 07/29. FINDINGS: RIGHT TESTICLE: Normal in size (3.3 cm x 1.5 cm x 2.4 cm) and echogenicity, no abnormal mass. Mildly reduced Doppler flow. LEFT TESTICLE: Normal in size (3.6 cm x 1.4 cm x 2.1 cm) and echogenicity, no abnormal mass. Normal Doppler flow. EPIDIDYMIDES: Within normal limits in size and vascularity. A 3 x 3 x 3 mm cyst along the head of the right epididymis. SCROTUM: There is significant improvement of previously documented abscess measuring 2.5 x 2.2 cm along the right scrotal wall (6 mm). No hydrocele, varicocele seen. IMPRESSION: 1. Scrotal wall abscess along the right side, measuring 2.5 x 2.2 cm, showing significant improvement/reduction in size. 2. Mildly reduced blood flow to the right testicle. Clinical correlation is advised for possible intermittent right testicular torsion. /[place] DICTATED BY: ALICE LEARY Jr., MD DATE: 12/15/24 1324 ELECTRONICALLY SIGNED BY: ALICE LEARY Jr., MD DATE: 12/15/24 1324 ASSESSMENT: uncontrolled DM-2 and hyperglycemia insulin adjusted and glucose are improving. now s/p surgery for deep perineal abscess. .s/p wound vac. glucose are improving. Home diabetic regimen: lantus 50 units daily, lispro insulin 25 units tid before meals, janumet mg bid Hba1c 14% Sepsis secondary to complicated urinary tract infection and scrotal cellulitis with abscess, POA s/p surgery Progressive scrotal cellulitis with developing right hemiscrotal abscess, POA Severe complicated urinary tract infection, POA Urinary retention status post Thomas catheter placement, POA Bilateral hydronephrosis, POA Acute kidney injury with underlying history of chronic kidney disease, POA History of Farxiga use as outpatient, POA but off due to hx of perineal abscess Hypertension, POA History of dual antiplatelet therapy with aspirin and Plavix as outpatient, POA History of coronary artery disease with prior history of coronary intervention and stenting, POA History of peripheral arterial disease with history of lower extremity angioplasty and stenting, POA History of TIA, POA Hypertension, POA Hyperlipidemia, POA Debility, POA Right eye blindness, POA Decreased vision of left eye, POA History of iron deficiency anemia, POA History of hospitalization in [facility] for right epididymo-orchitis with abscess requiring surgical drainage,07/2024, POA PLAN: continue Lantus 50 units daily and adjust for fasting glucose. increase Regular insulin to 17 units daily and adjust for post-prandial glucose. Continue medium dose sliding scale insulin. Monitor glucose q x 6 hourly. Continue carb consistent diet. Keep glucose less than 180 mg/dl. Vitals/Labs Vital Signs Date Time Temp Pulse Resp B/P (MAP) Pulse Ox O2 Delivery O2 Flow Rate FiO2 12/21/24 20:00 98.2 80 18 129/80 92 Room Air 12/21/24 08:00 0 21 Laboratory Tests 12/21/24 04:14 Medications Current Medications Acetaminophen 1,000 mg ONCE ONCE PO Last administered on 12/15/24at 11:13; Start 12/15/24 at 11:00; Stop 12/15/24 at 11:01; Status DC Sodium Chloride 1,000 ml @ 0 mls/hr ONCE ONCE IV Last administered on 12/15/24at 11:33; Start 12/15/24 at 11:00; Stop 12/15/24 at 11:01; Status DC Vancomycin HCl 1 each AD IV; Start 12/15/24 at 11:00; Stop 12/15/24 at 23:52; Status DC Cefepime HCl 1 gm ONCE ONCE IVPB Last administered on 12/15/24at 11:37; Start 12/15/24 at 11:00; Stop 12/15/24 at 11:01; Status DC Vancomycin HCl 250 ml @ 125 mls/hr ONCE ONCE IV Last administered on 12/15/24at 11:51; Start 12/15/24 at 11:00; Stop 12/15/24 at 12:59; Status DC Insulin Human Regular 10 unit ONCE ONCE IV Last administered on 12/15/24at 11:48; Start 12/15/24 at 11:30; Stop 12/15/24 at 11:31; Status DC Vancomycin HCl 250 ml @ 125 mls/hr Q48H IV; Start 12/17/24 at 11:00; Stop 12/15/24 at 13:19; Status DC Insulin Human Regular INSULIN SLIDING SCAL... ACHS SQ Last administered on 12/15/24at 21:03; Start 12/15/24 at 16:30; Stop 12/16/24 at 06:19; Status DC Dextrose 50 ml AD PRN IV; Start 12/15/24 at 13:30; Stop 01/14/25 at 13:29 Glucagon 1 mg AD PRN IM; Start 12/15/24 at 13:30; Stop 01/14/25 at 13:29 Pharmacy Profile Note 1 each ONCE MISC; Start 12/15/24 at 13:30; Stop 12/15/24 at 14:18; Status DC Atorvastatin Calcium 40 mg HS PO Last administered on 12/21/24at 21:03; Start 12/15/24 at 21:00; Stop 01/14/25 at 20:59 Tamsulosin HCl 0.4 mg DAILY PO Last administered on 12/21/24at 09:06; Start 12/16/24 at 09:00; Stop 01/15/25 at 08:59 Ferrous Sulfate 325 mg DAILY PO Last administered on 12/21/24at 09:06; Start 12/16/24 at 09:00; Stop 01/15/25 at 08:59 Home Med (Sennosides/ Docusate Sodium (Colace 2-i... DAILY PO; Start 12/16/24 at 09:00; Stop 12/21/24 at 10:37; Status DC Sodium Chloride 1,000 ml @ 75 mls/hr [id number] IV Last administered on 12/17/24at 01:40; Start 12/15/24 at 13:30; Stop 12/17/24 at 10:49; Status DC Hydromorphone HCl 0.2 mg Q6H PRN IVP Last administered on 12/17/24at 04:34; Start 12/15/24 at 13:30; Stop 12/18/24 at 09:00; Status DC Famotidine 20 mg DAILY IV Last administered on 12/17/24at 08:53; Start 12/16/24 at 09:00; Stop 12/17/24 at 10:49; Status DC Sodium Chloride 500 ml @ 0 mls/hr ONCE ONCE IV Last administered on 12/15/24at 15:13; Start 12/15/24 at 14:30; Stop 12/15/24 at 14:31; Status DC Hydralazine HCl 5 mg Q6H PRN IV; Start 12/15/24 at 14:30; Stop 01/14/25 at 14:29 Meropenem 1 gm Q12H IVPB Last administered on 12/17/24at 17:11; Start 12/15/24 at 16:00; Stop 12/17/24 at 19:54; Status DC Linezolid 300 ml @ 150 mls/hr Q12H IV Last administered on 12/17/24at 08:53; Start 12/15/24 at 21:00; Stop 12/17/24 at 19:54; Status DC Vitamin B Complex/ Vit C/Folic Acid 1 cap DAILY PO Last administered on 12/21/24at 09:06; Start 12/16/24 at 09:00; Stop 01/15/25 at 08:59 Insulin Glargine 25 units HS SQ; Start 12/15/24 at 21:00; Stop 12/15/24 at 18:52; Status DC Insulin Glargine 20 units HS SQ Last administered on 12/15/24at 21:05; Start 12/15/24 at 21:00; Stop 12/16/24 at 06:19; Status DC Insulin Glargine 20 units DAILY SQ; Start 12/16/24 at 09:00; Stop 12/17/24 at 07:32; Status DC Insulin Human Regular 8 unit TIDAC SQ Last administered on 12/17/24at 06:59; Start 12/16/24 at 07:30; Stop 12/17/24 at 07:32; Status DC Insulin Human Regular INSULIN SLIDING SCAL... ACHS SQ Last administered on 12/21/24at 17:36; Start 12/16/24 at 07:30; Stop 01/15/25 at 07:29 Sodium Bicarbonate 650 mg QID PO Last administered on 12/21/24at 21:03; Start 12/16/24 at 13:00; Stop 01/15/25 at 12:59 Sodium Bicarbonate 50 meq ONCE ONCE IV Last administered on 12/16/24at 12:34; Start 12/16/24 at 12:00; Stop 12/16/24 at 12:05; Status DC Dexamethasone Sodium Phosphate 4 mg STK-MED ONCE .ROUTE; Start 12/16/24 at 15:54; Stop 12/16/24 at 16:00; Status DC Lidocaine HCl 5 ml STK-MED ONCE .ROUTE; Start 12/16/24 at 15:54; Stop 12/16/24 at 16:00; Status DC Midazolam HCl 2 mg STK-MED ONCE .ROUTE; Start 12/16/24 at 15:55; Stop 12/16/24 at 16:00; Status DC Propofol 200 mg STK-MED ONCE IV; Start 12/16/24 at 15:55; Stop 12/16/24 at 16:00; Status DC Succinylcholine Chloride 200 mg STK-MED ONCE .ROUTE; Start 12/16/24 at 15:55; Stop 12/16/24 at 16:00; Status DC Ondansetron HCl 4 mg STK-MED ONCE .ROUTE; Start 12/16/24 at 15:55; Stop 12/16/24 at 16:00; Status DC Rocuronium [place] 50 mg STK-MED ONCE .ROUTE; Start 12/16/24 at 15:55; Stop 12/16/24 at 16:00; Status DC Fentanyl Citrate 100 mcg STK-MED ONCE .ROUTE; Start 12/16/24 at 15:55; Stop 12/16/24 at 16:00; Status DC Insulin Glargine 50 units DAILY SQ Last administered on 12/21/24at 09:20; Start 12/17/24 at 09:00; Stop 01/16/25 at 08:59 Insulin Human Regular 15 unit TIDAC SQ Last administered on 12/20/24at 16:01; Start 12/17/24 at 07:30; Stop 12/20/24 at 21:39; Status DC Naloxone HCl 2 mg ONCE IV; Start 12/17/24 at 11:00; Stop 12/17/24 at 10:36; Status DC Naloxone HCl 2 mg ONCE ONCE IV; Start 12/17/24 at 11:00; Stop 12/17/24 at 11:01; Status DC Heparin Sodium (Porcine) 5,000 unit BID SQ Last administered on 12/21/24at 21:05; Start 12/17/24 at 11:00; Stop 01/16/25 at 10:59 Pantoprazole Sodium 40 mg DAILY IVP Last administered on 12/21/24at 09:19; Start 12/18/24 at 09:00; Stop 01/17/25 at 08:59 Sodium Bicarbonate 150 meq/Dextrose 1,150 ml @ 50 mls/hr Q23H IVP Last administered on 12/18/24at 08:25; Start 12/17/24 at 11:00; Stop 12/18/24 at 11:36; Status DC Aspirin 81 mg DAILY PO Last administered on 12/21/24at 09:05; Start 12/18/24 at 09:00; Stop 01/17/25 at 08:59 Acetaminophen 1,000 mg ONCE IVPB Last administered on 12/17/24at 17:11; Start 12/17/24 at 17:00; Stop 12/18/24 at 18:10; Status DC Linezolid 300 ml @ 150 mls/hr Q12H IV Last administered on 12/19/24at 10:01; Start 12/17/24 at 21:00; Stop 12/19/24 at 20:59; Status DC Meropenem 1 gm Q12H IVPB Last administered on 12/20/24at 16:01; Start 12/18/24 at 04:00; Stop 12/20/24 at 23:00; Status DC Magnesium Sulfate 50 ml @ 0 mls/hr PROTOCOL PRN IV Last administered on 12/18/24at 10:42; Start 12/18/24 at 09:30; Stop 12/20/24 at 09:53; Status DC Leptospermum Honey 1 APPLICATION ONCE STAT TP Last administered on 12/19/24at 16:35; Start 12/19/24 at 16:04; Stop 12/19/24 at 16:06; Status DC Leptospermum Honey 1 APPL [id number] TP Last administered on 12/21/24at 09:43; Start 12/21/24 at 09:00; Stop 01/20/25 at 08:59 Fluconazole/ Sodium Chloride 100 ml @ 100 mls/hr DAILY IV Last administered on 12/21/24at 09:05; Start 12/21/24 at 09:00; Stop 01/20/25 at 08:59 Magnesium Sulfate 50 ml @ 0 mls/hr PROTOCOL IV Last administered on 12/21/24at 06:41; Start 12/20/24 at 10:00; Stop 01/19/25 at 09:59 Insulin Human Regular 16 unit TIDAC SQ Last administered on 12/21/24at 17:36; Start 12/21/24 at 07:30; Stop 01/20/25 at 07:29 Ondansetron HCl 4 mg Q6H6 PRN IVP Last administered on 12/21/24at 03:17; Start 12/21/24 at 02:30; Stop 01/20/25 at 02:29 Sennosides 1 tab DAILY PO Last administered on 12/21/24at 11:53; Start 12/21/24 at 11:00; Stop 01/20/25 at 10:59 Docusate Sodium 50 mg DAILY PO Last administered on 12/21/24at 11:52; Start 12/21/24 at 11:00; Stop 01/20/25 at 10:59 Mupirocin 1 APPL BID TP Last administered on 12/21/24at 21:06; Start 12/21/24 at 12:30; Stop 01/20/25 at 12:29 Hydromorphone HCl 0.2 mg Q4H PRN IVP; Start 12/21/24 at 12:21; Stop 12/26/24 at 12:20 Magnesium Sulfate 50 ml @ 0 mls/hr PROTOCOL IV; Start 12/21/24 at 14:30; Stop 12/21/24 at 14:25; Status DC CINDY HALE MD Dec 21, 2024 22:56
[2024-12-22] VITALS: BP 160/78; PULSE 78; RESP 20; TEMP 98.1
[2024-12-22 04:00] VITALS: BP 142/93; PULSE 78; RESP 20; TEMP 98.1
[2024-12-22 05:20] LABS: NUCLEATED RED BLOOD CELLS 0.0 % (0.0-0.19); PLATELET COUNT (AUTO) 601.0 K/uL (130-400); RED BLOOD CELL COUNT(AUTO) 4.11 MIL/uL (4.50-6.20); RED CELL DISTRIBUTION WIDTH 13.6 % (11.0-15.5); WHITE BLOOD COUNT (AUTO) 10.8 K/uL (4.8-10.8)
[2024-12-22 05:34] LABS: ASPARTATE AMINOTRANSFERASE 20.0 U/L (10-37); CREATININE 1.3 mg/dL (0.5-1.3); GLOMERULAR FILTR. RATE CALC 68.0 mL/min (>90); GLUCOSE,RANDOM 217.0 mg/dL (70-105); SODIUM SERUM 138.0 mmol/L (136-145); TOTAL PROTEIN, SERUM 7.2 g/dL (6.0-8.3); UREA NITROGEN, BLOOD 35.0 mg/dL (7-18)
[2024-12-22 08:00] VITALS: BP 156/89; PULSE 82; RESP 18; TEMP 99.8; O2SAT 95
--- NOTE | 2024-12-22 09:32 | NUR ---
CM NOTE PER ROSE MARIE REP AT [facility]. PT IS STILL PENDING INSURANCE APPROVAL.
[2024-12-22 12:00] VITALS: BP 153/87; PULSE 84; RESP 18; TEMP 98.9
--- NOTE | 2024-12-22 12:05 | PN ---
[facility] PROGRESS NOTE Date of Service: Dec 22, 2024 Time of Service: 12:03 Attending doctor Tato SUBJECTIVE: 49-year-old male with history of poorly controlled type 2 diabetes mellitus, hypertension, hyperlipidemia, GERD, peripheral arterial disease, history of coronary artery disease with prior history of coronary stenting, peripheral arterial disease with prior history of angioplasty and stenting, morbid obesity, history of scrotal cellulitis with abscess requiring hospitalization in [facility] on 07/2024. Patient presented to the ER for further evaluation of progressive pain, swelling to the right side of the scrotum ongoing for the past three days. Pain is moderate in intensity involving the right hemiscrotum. Patient reported having subjective fevers, chills as well feels. Reported having dysuria and suprapubic discomfort as well. Patient reported that he was previously hospitalized in [facility] on 07/2024 where he was found to have right epididymo-orchitis. Patient during his hospitalization needed incision and drainage with debridement of right perineal and Ischiorectal abscess tracking into the scrotum by Dr. Choudhury on 08/01/2024. During this hospitalization had urinary retention requiring Thomas catheter placement. Discharged to long-term acute care for further IV antibiotic therapy. Patient denies any active chest pain, nausea, vomiting, or significant abdominal pain. On presentation to the ER, patient was noted to be in urinary retention with Thomas catheter placement yielding about 400 mL of urine. Patient underwent testicular ultrasound which showed findings of right scrotal wall abscess and mildly reduced flow to the right testicle. Patient underwent CT abdomen pelvis without contrast which showed findings of severe bilateral hydronephrosis with pyelonephritis, cystitis, and 3.6 cm x 5.1 cm right penoscrotal hypodense collection concerning for abscess. Patient admitted for further treatment and management of sepsis with underlying UTI, scrotal wall cellulitis with abscess, acute kidney injury and severe hyperglycemia. Consultation with Urology requested. Patient started on broad-spectrum antibiotics. 12/16 patient remains admitted to the PCU, blood pressure 135/86, afebrile, saturating normal on room air, WBC 14.8, hemoglobin 10.3, hematocrit 32.5, platelet count of 424. Sodium 131, potassium 4.4, CO2 of 19, BUN of 79, creatinine 3.3, uric acid 10.6, phosphorus 5.0. Iron level at 15. Blood gas with an ABG showing a pH of 7.32, pCO2 38, bicarb 19.3. Blood cultures no growth after 24 hours. Urine culture [id number] CFU, identification and sensitivity in progress. Patient evaluated by urologist, they abscesses and spontaneously draining, but the patient is still going to need formal incision and drainage. Clinical exam did not reveal findings suggestive of torsion. There was scrotal wall thickening worse of the right side with cellulitis. Recommended IV antibiotics for now. I will request a stat ABG to assess metabolic status. Patient with low iron level, follow stool occult blood, if positive we will request GI consultation. Patient currently on ferrous sulfate 325 mg p.o. daily. Infectious Disease consultation requested, follow input and recommendation. Patient with creatinine of 3.3, nephrology input noted and appreciated. Patient is started on insulin glargine 20 units subcutaneously daily as well as insulin sliding scale, continue to follow endocrinology input and recommendation. Renal ultrasound will be ordered, discussed with the hardwood sawyer, if hydronephrosis we will request Urology consult. Follow up PSA level. During my visit patient comfortably in bed, alert oriented x3, no acute events overnight, results of renal function discussed with the patient and the at bedside. 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 Blood pressure 161/79, heart rate of 67, saturating 99% 2 L nasal cannula. CBC with a hemoglobin 11.0, hematocrit 34.7, WBC 12.4, platelet count 497. Sodium 132, potassium 5.1, BUN of 67, creatinine 2.3, (improving compared to yesterday) random glucose 430, total calcium 8.8, magnesium 2.0. Ammonia level less than 10. ABG showing a pH of 7.32, bicarb of 18.4. Renal ultrasound showed urinary bladder wall thickening consult for cystitis, previously bilateral moderate hydroureteronephrosis not visualized. CT head without contrast no acute intracranial abnormality, stable encephalomalacia in the bilateral inferior cerebellar hemispheres suggesting sequela of prior insult, no significant interval change. Ultrasound carotids no hemodynamically significant stenosis bilateral carotid or vertebral arteries. Continue the patient on broad-spectrum IV antibiotics, follow results of intraoperative cultures, continue to follow ID input recommendation, follow urology input and recommendation. Neurology consultation requested, we will follow input and recommendation. Patient upgraded to the ICU, continue close monitoring of the patient's mental status. Follow critical care input and recommendations. Renal function slowly improving, continue to monitor in a.m., continue to assess metabolic status with daily ABG, patient is started on sodium bicarbonate drip. Continue long-acting insulin with glargine 50 units subcutaneously daily as well as insulin sliding scale. A.m. labs At the time of my visit, patient is comfortably in bed, alert and oriented x3, results of CT head discussed with the patient, all questions answered, he denies dizziness, no headache, no chest pain, shortness shortness for breath, no nausea, no vomiting. No weakness to both upper or lower extremities, able to move four extremities well. Able to show me all his teeth without deviation of the mouth. not present in the room at the time of my visit. 12/18 patient remains admitted to the ICU, hemodynamically stable, BP 133/50, afebrile, saturating normal on room air, during my visit the patient is alert oriented x3, denies dizziness, no headache, no chest pain, shortness shortness for breath, no nausea, no vomiting, no focal neurological deficit noted, no slurry speech, able to move both upper and lower extremity. Hemoglobin 10.5, hematocrit 32.2, WBC of 11.2. Results of culture from scrotal abscess positive for Streptococcus agalactiae group B, urine culture positive for yeast. Echocardiogram done, the apical anterior lateral, inferolateral carrillo are severely hypokinetic, the apical inferior wall is thin, scarring and akinetic, LVEF 40%, indeterminate diastolic dysfunction, trace mitral regurgitation, no pericardial effusion. Neck MRA no significant stenosis appreciated. Patient will be downgraded to the PCU, continue broad-spectrum antibiotics, continue to follow urology and ID input and recommendations. 12/19 patient remains admitted to the PCU, BP 151/82, afebrile, saturating normal on room air. WBC 11.3, hemoglobin 10.5, hematocrit 31.9, with a platelet count of 564. BUN 55, creatinine 1.7. Scrotal abscess culture positive for Irina albicans, Streptococcus agalactiae group B and is species. Discharge plan discussed with case management, who is making arrangements for the patient to be discharged to LTAC. Urology input noted and appreciated, patient is status post incision and drainage of tip. José abscess extending towards the rectal region, possibility of the rectal fistula needs to be ruled out. We will request surgical consultation. Continue wound care, continue broad-spectrum antibiotics, continue to follow ID input recommendation, continue hemodialysis per Nephrology recommendations. At the time of my visit the patient is comfortably in bed, alert oriented x3, no focal neurological deficit, plan is to downgraded the patient to the medical floor. 12/20 patient downgraded from the PCU to the medical floor, remains hemodynamically stable, afebrile, saturating normal on room air. Discharge plan discussed again with case management, still pending insurance approval for the patient to be discharged to LTAC. Per urology recommendation, General surgery was contacted to evaluate for the possibility of rectal fistula, surgical input noted and appreciated, continue conservative management with the wound care for now. Endocrinology input noted and appreciated, continue long- acting as well as short-acting insulin, with the adjustments as needed. At the time of my visit patient comfortably in bed, alert oriented x3, no new focal neurological deficits, denied chest pain, shortness shortness for breath, no nausea, no vomiting, no abdominal pain. 12/21 patient remains admitted to the medical floor, status post excisional debridement of necrotic soft tissue from the perineum secondary to 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) Wound culture positive for Irina albicans, Streptococcus agalactiae group B an d yeast species. General surgery consultation requested per urology recommendation to evaluate for possible rectal fistula, per General surgery medical management for now with the antibiotics, can follow up as an outpatient. Case management consulted for discharge plan to [facility], pending acceptance. During my visit today he remains comfortably in bed, alert oriented x3, hemodynamically stable, no acute events overnight per discussion with the RN. He is getting broad-spectrum IV antibiotics. Wound VAC in place. 12/22 patient was seen by nurse practitioner and physician during rounding in room 416. Patient was already discharged to LTAC once insurance approved. Discharge medications were performed by provider. Case management working on disposition. During my visitation today patient is alert and oriented x3 hemodynamically stable. No acute over 90 Invanz as per RN. Patient continues to be on IV antibiotics as ordered by ID. All the labs and radiology was reviewed by PROFESSOR OF SPECIAL EDUCATION. Wound VAC in place. We will continue to monitor patient in the meantime. A.m. labs. REVIEW OF SYSTEMS CONSTITUTIONAL: fevers, chills and malaise NEUROLOGICAL: Denies headache, amaurosis fugax, motor weakness, sensory deficit, vertigo/spinning sensation, gait abnormalities, or tremors. ENT: No hearing loss, otalgia, otorrhea, rhinitis, rhinorrhea, hoarseness, or sore throat. CARDIOVASCULAR: Denies any exertional angina, dyspnea on exertion, orthopnea, paroxysmal nocturnal dyspnea, palpitations, life-threatening arrhythmias, cl audication. PULMONARY: Denies any shortness of breath, cough, phlegm/sputum, hemoptysis, pleuritic chest pain. SLEEP: Denies morning headaches, daytime somnolence or napping. Denies difficulty falling asleep, staying asleep, waking from sleep. Denies knowledge of snoring. GASTROINTESTINAL: Denies any type of dysphagia to either liquids or solids. Denies nausea, vomiting, pyrosis, early satiety, abdominal pain, diarrhea, const ipation, or changes in stool consistency or caliber. Denies coffee-ground emesis, hematemesis, hematochezia, or melanotic stools. GENITOURINARY: redness, swelling and pain to the right side of the scrotum ENDOCRINOLOGIC: poorly controlled DM II with hyperglycemia HEMATOLOGIC: Denies thrombophilia/previous clots, or coagulopathy/bleeding disorders. ONCOLOGIC: Denies personal history of malignancy. DERMATOLOGIC: redness and swelling to the right richie-scrotum PSYCHIATRIC: Denies any suicidal or homicidal ideation. Denies hallucinations. PHYSICAL EXAM GENERAL APPEARANCE: The patient is awake, alert, and oriented, in no acute cardiopulmonary distress. NEUROLOGICAL: Cranial nerves II-XII grossly intact. Motor is 5/5 in bilateral upper and lower extremities proximal to distal. No sensory deficits. HEENT: Face is symmetric. Pupils are equal and reactive. Extraocular movements are intact. NECK: Supple. No JVD. No thyromegaly. No submental, submandibular, pre- /postauricular, occipital or supraclavicular lymphadenopathy. CHEST: Normal chest expansion. No Telemetry. LUNGS: Absence of any rales, rhonchi or any wheezing. CARDIOVASCULAR: Regular. S1 and S2 normal. No appreciable rubs, murmurs or gallops. ABDOMEN: Soft, nontender, and nondistended. There is no rebound, voluntary guarding, or rigidity. : Thomas catheter noted draining cloudy urine, significant redness and swelling noted of the scrotum, mild tenderness to palpation EXTREMITIES: No significant swelling noted Vital Signs (last 8hr) Date Time Temp Pulse Resp B/P (MAP) Pulse Ox O2 Delivery O2 Flow Rate FiO2 12/22/24 08:00 99.9 82 18 156/89 95 Room Air LABS: Laboratory: Test 12/22/24 11:50 12/22/24 05:12 Range/Units Whole Blood Glucose 190 H 70-110 MG/DL Bedside Glucose Comment Notified Nurse White Blood Count 10.8 4.8-10.8 K/uL Red Blood Count 4.11 L 4.50-6.20 MIL/uL Hemoglobin 10.3 L 14.0-18.0 g/dL Hematocrit 32.4 L 42-54 % Mean Corpuscular Volume 78.8 L 79-99 fL Mean Corpuscular Hemoglobin 25.1 L 27.0-33.0 pg Mean Corpuscular Hemoglobin Concent 31.8 L 32.0-36.0 g/dL Red Cell Distribution Width 13.6 11.0-15.5 % Platelet Count 601 H 130-400 K/uL Mean Platelet Volume 8.9 7.5-10.5 fL Nucleated Red Blood Cells 0.0 0.0-0.19 % Sodium Level 138 136-145 mmol/L Potassium Level 4.6 3.5-5.1 mmol/L Chloride Level 103 101-111 mmol/L Carbon Dioxide Level 31 21-32 mmol/L Blood Urea Nitrogen 35 H 7-18 mg/dL Creatinine 1.3 0.5-1.3 mg/dL Glomerular Filtration Rate Calc 68 >90 mL/min Random Glucose 217 H 70-105 mg/dL Total Calcium 8.5 8.5-10.1 mg/dL Magnesium Level 1.70 L 1.80-2.40 mg/dL Total Bilirubin 0.2 0.2-1.0 mg/dL Aspartate Amino Transf (AST/SGOT) 20 10-37 U/L Alanine Aminotransferase (ALT/SGPT) 26 12-78 U/L Alkaline Phosphatase 200 H 50-136 U/L Total Protein 7.2 6.0-8.3 g/dL Albumin 1.6 L 3.5-5.0 g/dL Current Medications Medications (Trade) Dose Ordered Sig/Gaby Route PRN Reason Start Time Stop Time Status Last Admin Dose Admin Acetaminophen (acetaMINOPHEN) 1,000 mg ONCE IVPB 12/17/24 17:00 12/18/24 18:10 DC 12/17/24 17:11 1,000 MG Aspirin (Aspirin 81mg Ec Tab) 81 mg DAILY PO 12/18/24 09:00 01/17/25 08:59 12/22/24 08:46 81 MG Atorvastatin Calcium (LIPItor 40MG) 40 mg HS PO 12/15/24 21:00 01/14/25 20:59 12/21/24 21:03 40 MG Dextrose (D50w) 50 ml AD PRN IV HYPOGLYCEMIA PROTOCOL 12/15/24 13:30 01/14/25 13:29 Docusate Sodium (COLace LIQUID 100MG/10ML) 50 mg DAILY PO 12/21/24 11:00 01/20/25 10:59 12/22/24 08:47 50 MG Famotidine (Pepcid 20mg Vial) 20 mg DAILY IV 12/16/24 09:00 12/17/24 10:49 DC 12/17/24 08:53 20 MG Ferrous Sulfate (Ferrous Sulfate) 325 mg DAILY PO 12/16/24 09:00 01/15/25 08:59 12/22/24 08:46 325 MG Fluconazole/ Sodium Chloride 100 ml @ 100 mls/hr DAILY IV 12/21/24 09:00 01/20/25 08:59 12/22/24 09:23 100 MLS/HR Glucagon (Glucagon 1mg Kit) 1 mg AD PRN IM HYPOGLYCEMIA PROTOCOL 12/15/24 13:30 01/14/25 13:29 Heparin Sodium (Porcine) (HEParin 5,000 UNIT VIAL) 5,000 unit BID SQ 12/17/24 11:00 01/16/25 10:59 12/22/24 09:22 5,000 UNIT Home Med (Home Medication) (Sennosides/ Docusate Sodium (Colace 2-i... DAILY PO 12/16/24 09:00 12/21/24 10:37 DC Hydralazine HCl (APRESOLine 20MG INJ) 5 mg Q6H PRN IV ADMINISTER FOR SBP > 160 12/15/24 14:30 01/14/25 14:29 Hydromorphone HCl (DiLAUDid 0.5MG INJ) 0.2 mg Q4H PRN IVP SEVERE PAIN (7-10) 12/21/24 12:21 12/26/24 12:20 Hydromorphone HCl (DiLAUDid 0.5MG INJ) 0.2 mg Q6H PRN IVP SEVERE PAIN (7-10) 12/15/24 13:30 12/18/24 09:00 DC 12/17/24 04:34 0.2 MG Insulin Glargine (LANtus 100 UNITS/ML 10 ML VIAL) 20 units DAILY SQ 12/16/24 09:00 12/17/24 07:32 DC Insulin Glargine (LANtus 100 UNITS/ML 10 ML VIAL) 20 units HS SQ 12/15/24 21:00 12/16/24 06:19 DC 12/15/24 21:05 20 UNITS Insulin Glargine (LANtus 100 UNITS/ML 10 ML VIAL) 25 units HS SQ 12/15/24 21:00 12/15/24 18:52 DC Insulin Glargine (LANtus 100 UNITS/ML 10 ML VIAL) 50 units DAILY SQ 12/17/24 09:00 01/16/25 08:59 12/22/24 09:23 50 UNITS Insulin Human Regular (humuLIN R 100 UNIT/ML 3ML) 8 unit TIDAC SQ 12/16/24 07:30 12/17/24 07:32 DC 12/17/24 06:59 8 UNIT Insulin Human Regular (humuLIN R 100 UNIT/ML 3ML) 15 unit TIDAC SQ 12/17/24 07:30 12/20/24 21:39 DC 12/20/24 16:01 15 UNIT Insulin Human Regular (humuLIN R 100 UNIT/ML 3ML) 16 unit TIDAC SQ 12/21/24 07:30 01/20/25 07:29 12/22/24 06:36 16 UNIT Insulin Human Regular (humuLIN R 100 UNIT/ML 3ML) INSULIN SLIDING SCAL... ACHS SQ 12/15/24 16:30 12/16/24 06:19 DC 12/15/24 21:03 5 UNIT Insulin Human Regular (humuLIN R 100 UNIT/ML 3ML) INSULIN SLIDING SCAL... ACHS SQ 12/16/24 07:30 01/15/25 07:29 12/22/24 06:35 2 UNIT Leptospermum Honey ([employer]) 1 APPLICATION ONCE STAT TP 12/19/24 16:04 12/19/24 16:06 DC 12/19/24 16:35 1 APPL Leptospermum Honey ([facility]) 1 APPL QMOWEFR TP 12/21/24 09:00 01/20/25 08:59 12/21/24 09:43 1 APPL Linezolid 300 ml @ 150 mls/hr Q12H IV 12/15/24 21:00 12/17/24 19:54 DC 12/17/24 08:53 150 MLS/HR Linezolid 300 ml @ 150 mls/hr Q12H IV 12/17/24 21:00 12/19/24 20:59 DC 12/19/24 10:01 150 MLS/HR Magnesium Sulfate 50 ml @ 0 mls/hr PROTOCOL IV 12/20/24 10:00 01/19/25 09:59 12/21/24 06:41 25 MLS/HR Magnesium Sulfate 50 ml @ 0 mls/hr PROTOCOL IV 12/21/24 14:30 12/21/24 14:25 DC Magnesium Sulfate 50 ml @ 0 mls/hr PROTOCOL PRN IV MAGNESIUM PROTOCOL 12/18/24 09:30 12/20/24 09:53 DC 12/18/24 10:42 25 MLS/HR Meropenem (Merrem 1gm) 1 gm Q12H IVPB 12/15/24 16:00 12/17/24 19:54 DC 12/17/24 17:11 1 GM Meropenem (Merrem 1gm) 1 gm Q12H IVPB 12/18/24 04:00 12/20/24 23:00 DC 12/20/24 16:01 1 GM Mupirocin (Bactroban Oint) 1 APPL BID TP 12/21/24 12:30 01/20/25 12:29 12/22/24 09:24 1 APPL Naloxone HCl (NARcan HCL 1 MG/ ML 2ML SYG) 2 mg ONCE IV 12/17/24 11:00 12/17/24 10:36 DC Ondansetron HCl (zoFRAN 4MG INJ) 4 mg Q6H6 PRN IVP NAUSEA/VOMITING 12/21/24 02:30 01/20/25 02:29 12/21/24 03:17 4 MG Pantoprazole Sodium (PROTonix 40MG INJ) 40 mg DAILY IVP 12/18/24 09:00 01/17/25 08:59 12/22/24 08:47 40 MG Pharmacy Profile Note (Pharmacy Communication) 1 each ONCE MISC 12/15/24 13:30 12/15/24 14:18 DC Sennosides (Senna) 1 tab DAILY PO 12/21/24 11:00 01/20/25 10:59 12/22/24 08:46 1 TAB Sodium Bicarbonate 150 meq/Dextrose 1,150 ml @ 50 mls/hr Q23H IVP 12/17/24 11:00 12/18/24 11:36 DC 12/18/24 08:25 50 MLS/HR Sodium Bicarbonate (Sodium Bicarbonate) 650 mg QID PO 12/16/24 13:00 01/15/25 12:59 12/22/24 08:46 650 MG Sodium Chloride 1,000 ml @ 75 mls/hr [id number] IV 12/15/24 13:30 12/17/24 10:49 DC 12/17/24 01:40 75 MLS/HR Tamsulosin HCl (FloMAX) 0.4 mg DAILY PO 12/16/24 09:00 01/15/25 08:59 12/22/24 08:46 0.4 MG Vancomycin HCl 250 ml @ 125 mls/hr Q48H IV 12/17/24 11:00 12/15/24 13:19 DC Vancomycin HCl (Vancomycin Protocol) 1 each AD IV 12/15/24 11:00 12/15/24 23:52 DC Vitamin B Complex/ Vit C/Folic Acid (Nephrovite Tablet) 1 cap DAILY PO 12/16/24 09:00 01/15/25 08:59 12/22/24 08:46 1 CAP DIAGNOSTICS / RADIOLOGY: [ ] FINAL DIAGNOSIS Sepsis secondary to complicated urinary tract infection and scrotal cellulitis with abscess, POA Progressive scrotal cellulitis with developing right hemiscrotal abscess, POA status post excisional debridement of necrotic soft tissue from the perineum secondary to 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) Wound culture positive for Irina albicans, Streptococcus agalactiae group B and yeast species Severe complicated urinary tract infection, POA Urinary retention status post Thomas catheter placement, POA Bilateral hydronephrosis, POA Acute kidney injury with underlying history of chronic kidney disease, POA Severe nonketotic hyperglycemia with poorly controlled type 2 diabetes mellitus, POA History of Farxiga use as outpatient, POA Hypertension, POA History of dual antiplatelet therapy with aspirin and Plavix as outpatient, POA History of coronary artery disease with prior history of coronary intervention and stenting, POA History of peripheral arterial disease with history of lower extremity angioplasty and stenting, POA History of TIA, POA Hypertension, POA Hyperlipidemia, POA Debility, POA Right eye blindness, POA Decreased vision of left eye, POA History of iron deficiency anemia, POA History of hospitalization in [facility] for right epididymo-orchitis with abscess requiring surgical drainage,07/2024, POA ATTESTATION BY PHYSICIAN I have seen and examined the patient. I reviewed the documentation, medical decision making, and treatment plan as noted by the mid-level provider above. I agree with the findings and plan of care. ZARI Washington MD [employer] Dec 22, 2024 12:05
--- NOTE | 2024-12-22 14:37 | PN ---
NEPHROLOGY PROGRESS NOTE Date/Time Patient Seen: Dec 22, 2024 SUBJECTIVE: This is a 49-year-old male with a past medical history of diabetes mellitus type 2, hypertension, peripheral arterial disease with left AKA, coronary artery disease, hyperlipidemia, GERD, PAD, and obesity Patient presented to the emergency room for fever and scrotum swelling. Thomas in place due to urinary retention Blood and urine cultures have been collected, pending results Continues on broad-spectrum antibiotics. We have consulted for renal failure. Renal function and electrolytes are stable. UA positive for proteinuria. Hemoglobin noted CT of the abdomen showed severe bilateral hydronephrosis. Marked bladder wall thickening with perivesicular fat stranding Renal ultrasound showed Urinary bladder wall thickening of concern for cystitis. Recommend urine routine. Previously demonstrated bilateral moderate hydroureteronephrosis is not visualized. 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 Family at the bedside Prognosis remains guarded REVIEW OF SYSTEMS: GENERAL: Positive for fever and scrotum swelling. NEUROLOGIC: Negative for any blurry vision, blind spots, double vision, facial asymmetry, dysphagia, dysarthria, hemiparesis, hemisensory deficits, vertigo, ataxia. HEENT: Negative for any head trauma, neck trauma, neck stiffness, photophobia, phonophobia, sinusitis, rhinitis. CARDIAC: Negative for any chest pain, dyspnea on exertion, paroxysmal nocturnal dyspnea, peripheral edema. PULMONARY: Negative for any shortness of breath, wheezing, COPD, or TB exposure. GASTROINTESTINAL: Negative for any abdominal pain, nausea, vomiting, bright red blood per rectum, melena. GENITOURINARY: Negative for any dysuria, hematuria, incontinence. INTEGUMENTARY: Negative for any rashes, cuts, insect bites. RHEUMATOLOGIC: Negative for any joint pains, photosensitive rashes, history of vasculitis or kidney problems. HEMATOLOGIC: Negative for any abnormal bruising, frequent infections or bleeding. Vital Signs (last 8hr) Date Time Temp Pulse Resp B/P (MAP) Pulse Ox O2 Delivery O2 Flow Rate FiO2 12/22/24 12:00 99.0 84 18 153/87 95 Room Air 12/22/24 08:00 99.9 82 18 156/89 95 Room Air PHYSICAL EXAM: GENERAL: Alert and oriented x 3. No acute distress. Well-nourished. EYES: EOMI. Anicteric. HENT: Moist mucous membranes. No scleral icterus. No cervical lymphadenopathy. LUNGS: Clear to auscultation bilaterally. No accessory muscle use. CARDIOVASCULAR: Regular rate and rhythm. No murmur. No JVD. ABDOMEN: Soft, non-tender and non-distended. No palpable masses. EXTREMITIES: No edema. Non-tender. SKIN: No rashes or lesions. Warm. NEUROLOGIC: No focal neurological deficits. CN II-XII grossly intact, but not individually tested. PSYCHIATRIC: Cooperative. Appropriate mood and affect. Current Medications Medications (Trade) Dose Ordered Sig/Gaby Route Start Time Stop Time Status Last Admin Dose Admin Atorvastatin Calcium (LIPItor 40MG) 40 mg HS PO 12/15/24 21:00 01/14/25 20:59 12/15/24 21:05 40 MG Famotidine (Pepcid 20mg Vial) 20 mg DAILY IV 12/16/24 09:00 01/15/25 08:59 12/16/24 09:12 20 MG Ferrous Sulfate (Ferrous Sulfate) 325 mg DAILY PO 12/16/24 09:00 01/15/25 08:59 Home Med (Home Medication) (Sennosides/ Docusate Sodium (Colace 2-i... DAILY PO 12/16/24 09:00 01/15/25 08:59 Insulin Glargine (LANtus 100 UNITS/ML 10 ML VIAL) 20 units DAILY SQ 12/16/24 09:00 01/14/25 20:59 Insulin Glargine (LANtus 100 UNITS/ML 10 ML VIAL) 20 units HS SQ 12/15/24 21:00 12/16/24 06:19 DC 12/15/24 21:05 20 UNITS Insulin Glargine (LANtus 100 UNITS/ML 10 ML VIAL) 25 units HS SQ 12/15/24 21:00 12/15/24 18:52 DC Insulin Human Regular (humuLIN R 100 UNIT/ML 3ML) 8 unit TIDAC SQ 12/16/24 07:30 01/15/25 07:29 Insulin Human Regular (humuLIN R 100 UNIT/ML 3ML) INSULIN SLIDING SCAL... ACHS SQ 12/15/24 16:30 12/16/24 06:19 DC 12/15/24 21:03 5 UNIT Insulin Human Regular (humuLIN R 100 UNIT/ML 3ML) INSULIN SLIDING SCAL... ACHS SQ 12/16/24 07:30 01/15/25 07:29 Linezolid 300 ml @ 150 mls/hr Q12H IV 12/15/24 21:00 12/17/24 20:59 12/16/24 09:12 150 MLS/HR Meropenem (Merrem 1gm) 1 gm Q12H IVPB 12/15/24 16:00 12/17/24 23:00 12/16/24 06:02 1 GM Pharmacy Profile Note (Pharmacy Communication) 1 each ONCE MISC 12/15/24 13:30 12/15/24 14:18 DC Sodium Chloride 1,000 ml @ 75 mls/hr [id number] IV 12/15/24 13:30 01/14/25 13:29 12/16/24 02:42 75 MLS/HR Tamsulosin HCl (FloMAX) 0.4 mg DAILY PO 12/16/24 09:00 01/15/25 08:59 Vancomycin HCl 250 ml @ 125 mls/hr Q48H IV 12/17/24 11:00 12/15/24 13:19 DC Vancomycin HCl (Vancomycin Protocol) 1 each AD IV 12/15/24 11:00 12/15/24 23:52 DC Vitamin B Complex/ Vit C/Folic Acid (Nephrovite Tablet) 1 cap DAILY PO 12/16/24 09:00 01/15/25 08:59 LABORATORY: [ ] Hematology Labs: Test 12/22/24 05:12 Range/Units White Blood Count 10.8 4.8-10.8 K/uL Red Blood Count 4.11 L 4.50-6.20 MIL/uL Hemoglobin 10.3 L 14.0-18.0 g/dL Hematocrit 32.4 L 42-54 % Mean Corpuscular Volume 78.8 L 79-99 fL Mean Corpuscular Hemoglobin 25.1 L 27.0-33.0 pg Mean Corpuscular Hemoglobin Concent 31.8 L 32.0-36.0 g/dL Red Cell Distribution Width 13.6 11.0-15.5 % Platelet Count 601 H 130-400 K/uL Mean Platelet Volume 8.9 7.5-10.5 fL Nucleated Red Blood Cells 0.0 0.0-0.19 % Chemistry Labs: Test 12/22/24 11:50 12/22/24 05:12 Range/Units Whole Blood Glucose 190 H 70-110 MG/DL Bedside Glucose Comment Notified Nurse Sodium Level 138 136-145 mmol/L Potassium Level 4.6 3.5-5.1 mmol/L Chloride Level 103 101-111 mmol/L Carbon Dioxide Level 31 21-32 mmol/L Blood Urea Nitrogen 35 H 7-18 mg/dL Creatinine 1.3 0.5-1.3 mg/dL Glomerular Filtration Rate Calc 68 >90 mL/min Random Glucose 217 H 70-105 mg/dL Total Calcium 8.5 8.5-10.1 mg/dL Magnesium Level 1.70 L 1.80-2.40 mg/dL Total Bilirubin 0.2 0.2-1.0 mg/dL Aspartate Amino Transf (AST/SGOT) 20 10-37 U/L Alanine Aminotransferase (ALT/SGPT) 26 12-78 U/L Alkaline Phosphatase 200 H 50-136 U/L Total Protein 7.2 6.0-8.3 g/dL Albumin 1.6 L 3.5-5.0 g/dL DIAGNOSTICS / RADIOLOGY: [place] [address] IMAGING REPORT Signed PATIENT: ASHA SUERO MR#: [id number] : 1975 SEX: M AGE: 49 LOCATION: 2CH ORDER 1 STATUS: ADM IN [facility] REPORT#: [id number] SERVICE 6 REASON: R/O STROKE ORDERING PHYSICIAN: ZARI JORDAN APRN PROCEDURE: MRA NECKWO - MR ANGIO NECK WO CON EXAM: MRA Neck without Intravenous Contrast. CLINICAL HISTORY: R/O STROKE TECHNIQUE: Magnetic resonance angiography images of the neck without intravenous contrast. Three-dimensional MIP reformations performed. COMPARISON: Ultrasound exam from December 17, 2024. FINDINGS: INTERNAL CAROTID ARTERIES: No significant stenosis based on NASCET criteria. COMMON CAROTID ARTERIES: No significant stenosis. No dissection. EXTERNAL CAROTID ARTERIES: No occlusion or dissection. VERTEBRAL ARTERIES: No significant stenosis. No dissection. BASILAR ARTERY: No significant stenosis. No dissection. SOFT TISSUES Unremarkable as visualized. IMPRESSION: No hemodynamically significant stenosis appreciated. /Gould DICTATED BY: ALICE LEARY Jr., MD DATE: 12/17/241653 ELECTRONICALLY SIGNED BY: ALICE LEARY Jr., MD DATE: 12/17/241653 PATIENT: ASHA SUERO MR#: [id number] : 1975 SEX: M AGE: 49 LOCATION: [facility] ORDER 1 STATUS: ADM IN HOSPITAL REPORT#: [id number] SERVICE 6 REASON: EVALUATE CARDIAC FUNCTION ORDERING PHYSICIAN: ZARI JORDAN APRN PROCEDURE: ECHO [facility] - ECHO 2-D COMPLETE APPROVED REPORT EXAM: Two-dimensional and M-mode echocardiogram with Doppler and color Doppler. INDICATION ICD: Evalute cardiac function 2D Dimensions RVDd 4.0 cm LVEF(%) 44.4 (>50%) LVED Vol(simp.) 176.0 mL IVSd 0.9 (0.7-1.1cm) FS(%) 22 % LVES Vol(simp.) 110.0 mL LVDd 5.4 (3.8-5.6cm) LA (2D) 2.1 (1.6-4.0cm) LVEF(%, simp.) 37 % PWd 1.0 (0.7-1.1cm) Ao Root(2D) 2.6 (2.0-3.7cm) LA ESV INDEX (BP) 37.59 mL/m2 LVDs 4.2 (2.5-4.0cm) LVOT diam 2.5 (1.8-2.4cm) IVC diam 2.0 cm Deformation Strain Apical 4 -9.4 % Apical 2 -13.7 % Apical 3 -10.7 % Global Strain -11.3 % M-Mode Dimensions EPSS 1.7 cm LA (MM) 2.9 (1.6-4.0cm) Ao Root(MM) 2.6 (2.0-3.7cm) Aortic Valve AoV Vmax 0.9 m/s Ao Peak GR 3.1 mmHg LVOT Vmax 0.8 m/s AoV VTI 0.2 m Ao Mean GR 1.8 mmHg LVOT VTI 0.17 m CULLEN (VMAX) 4.18 cm2 CULLEN (VTI) 4.2 cm2 Mitral Valve MV E Vmax 64.6 cm/s DECEL Time 195 ms MV A Vmax 66.0 cm/s P 1/2 T 87 ms E/A ratio 1.0 MVA (PHT) 2.5 cm2 TDI E/E' Medial 10.5 E/E' Lateral 5.6 Medial E' Peak V 6.14 cm/s Lateral E' Peak V 11.44 cm/s Pulmonary Valve PV Vmax 0.8 m/s PV VTI 0.20 m PV Mean GR 1.3 mmHg PV Peak GR 2.4 mmHg Tricuspid Valve RAP (EST) 8 mmHg RVSP 8.0 mmHg Left Ventricle Left ventricle is normal in size. The apical anterior lateral, inferolateral carrillo are severely hypokinetic. The apical inferior wall is thin, scarred and akinetic. The other carrillo are grossly normal. There is normal left ventricular wall thickness. Left ventricle systolic function is moderately depressed, estimated LVEF 40%. Indeterminate diastolic dysfunction. Right Ventricle The right ventricle is normal size. The right ventricular systolic function is normal. Atria The left atrium is mildly dilated, 38ml/m2. The right atrium size is normal. Aortic Valve Aortic valve is trileaflet. No aortic regurgitation is present. There is no aortic valvular stenosis. Mitral Valve The mitral valve is normal in structure. The leaflets are mildly thickened. Trace mitral regurgitation. There is no mitral valve stenosis. Tricuspid Valve The tricuspid valve is normal in structure. Trace tricuspid regurgitation. RVSP is normal. Pulmonic Valve Pulmonic valve is not well visualized. Great Vessels The aortic root is normal in size. The IVC is normal in size and collapses <50% with inspiration. Pericardium There is no pericardial effusion. Other Information Quality : Technically difficult study due to body habitus Conclusion Technically limited study with poor imaging windows. The left atrium is mildly dilated, 38ml/m2. There is normal left ventricular wall thickness. The apical anterior lateral, inferolateral carrillo are severely hypokinetic. The apical inferior wall is thin, scarred and akinetic. The other carrillo are grossly normal. Left ventricle systolic function is moderately depressed, estimated LVEF 40%. Indeterminate diastolic dysfunction. Trace mitral regurgitation. Trace tricuspid regurgitation. PASP is normal. There is no pericardial effusion. Recommend repeating an echocardiogram with Definity contrast to assess wall motion and LVEF. DICTATED BY: VEE BARILLAS MD DATE: 12/17/24 1441 ELECTRONICALLY SIGNED BY: VEE BARILLAS MD DATE: 12/17/24 170 PATIENT: ASHA SUERO MR#: [id number] : 1975 SEX: M AGE: 49 LOCATION: [facility] ORDER 1 STATUS: ADM IN [facility] REPORT#: [id number] SERVICE 6 REASON: EVALUATE S/S STROKE ORDERING PHYSICIAN: ZARI JORDAN APRN PROCEDURE: CAROTID - US CAROTID DUPLEX EXAM: US Duplex Bilateral Carotid and Vertebral Arteries. CLINICAL HISTORY: EVALUATE S/S STROKE TECHNIQUE: Real-time ultrasound scan of the bilateral carotid and vertebral arteries, 2-D grayscale, with color Doppler flow and spectral waveform analysis. COMPARISON: None provided. FINDINGS: RIGHT COMMON CAROTID ARTERY: PSV???77 cm/sec, no occlusion or significant stenosis. RIGHT INTERNAL CAROTID ARTERY: PSV???96 cm/sec, no occlusion or significant stenosis. RIGHT EXTERNAL CAROTID ARTERY: PSV- 64 cm/sec, no occlusion or significant stenosis. RIGHT VERTEBRAL ARTERY: Antegrade flow. PSV 62 cm/sec RIGHT ICA/CCA RATIO: 1.2 Within normal limits. LEFT COMMON CAROTID ARTERY: PSV- 85 cm/sec, no occlusion or significant stenosis. Soft tissue plaque in proximal CCA. LEFT INTERNAL CAROTID ARTERY: PSV- 55 cm/sec, no occlusion or significant stenosis. LEFT EXTERNAL CAROTID ARTERY: PSV -86 cm/sec No occlusion or significant stenosis. LEFT VERTEBRAL ARTERY: Antegrade flow. PSV 37 cm/sec LEFT ICA/CCA RATIO: 0.6 Within normal limits. SOFT TISSUES: No incidental abnormalities. IMPRESSION: 1. No hemodynamically significant stenosis in bilateral carotid or vertebral arteries. /Eastern DICTATED BY: ALICE LEARY Jr., MD DATE: 12/17/241219 ELECTRONICALLY SIGNED BY: ALICE LEARY Jr., MD DATE: 12/17/241219 PATIENT: ASHA SUERO MR#: [id number] : 1975 SEX: M AGE: 49 LOCATION: 2CH ORDER 8 STATUS: ADM IN REPORT#: [id number] SERVICE 7 REASON: S ORDERING PHYSICIAN: JANET IVAN MD PROCEDURE: HEAD WO - CT HEAD/BRAIN W/O CONTRAST ADDENDUM REPORT ADDENDUM: Results were shared by telephone at 11:10 am on 12/17/24 and acknowledged by Daniel Goncalvesrez /Eastern EXAM: Non-contrast CT examination of the Brain CLINICAL HISTORY: Rule out stroke. Altered mental status. TECHNIQUE: Thin collimated axial CT images of the brain were obtained, with sagittal and coronal reformatted images also submitted. CT scan done according to ALARA (As Low as Reasonably Achievable). CONTRAST USED: None. COMPARISON: Prior CT brain dated 02/02/23. FINDINGS: No acute intracranial abnormality is present. No acute cortical infarction, hemorrhage, mass, or mass effect. Mild generalized cerebral atrophy. No hydrocephalus or abnormal extra-axial fluid collections. Stable encephalomalacia in the bilateral inferior cerebellar hemispheres. The skull base and calvarium are intact. The mastoid air cells are clear. Mucosal disease in the visualized right maxillary sinus. IMPRESSION: No acute intracranial abnormality is present. Stable encephalomalacia in the bilateral inferior cerebellar hemispheres suggesting sequelae of prior insult. No significant interval change. /Eastern DICTATED BY: ALICE LEARY Jr., MD DATE: 12/17/24 1112 ELECTRONICALLY SIGNED BY: DATE: EXAM: Non-contrast CT examination of the Brain CLINICAL HISTORY: Rule out stroke. Altered mental status. TECHNIQUE: Thin collimated axial CT images of the brain were obtained, with sagittal and coronal reformatted images also submitted. CT scan done according to ALARA (As Low as Reasonably Achievable). CONTRAST USED: None. COMPARISON: Prior CT brain dated 02/02/23. FINDINGS: No acute intracranial abnormality is present. No acute cortical infarction, hemorrhage, mass, or mass effect. Mild generalized cerebral atrophy. No hydrocephalus or abnormal extra-axial fluid collections. Stable encephalomalacia in the bilateral inferior cerebellar hemispheres. The skull base and calvarium are intact. The mastoid air cells are clear. Mucosal disease in the visualized right maxillary sinus. IMPRESSION: No acute intracranial abnormality is present. Stable encephalomalacia in the bilateral inferior cerebellar hemispheres suggesting sequelae of prior insult. No significant interval change. /[place]ould DICTATED BY: ALICE LEARY Jr., MD DATE: 12/17/24 105 ELECTRONICALLY SIGNED BY: ALICE LEARY Jr., MD DATE: 12/17/241053 PATIENT: ASHA SUERO MR#: [id number] : 1975 SEX: M AGE: 49 LOCATION: 2D ORDER 132 STATUS: ADM IN REPORT#: [id number] SERVICE 1329 REASON: renal failure ORDERING PHYSICIAN: JANET IVAN MD PROCEDURE: RENAL - US RENAL SONOGRAM EXAMINATION: ULTRASOUND OF THE RETROPERITONEUM. CLINICAL HISTORY: Renal failure. COMPARISON: CT abdomen and pelvis without contrast dated 12/15/2024. TECHNIQUE: Real-time grayscale ultrasound images of the kidneys. FINDINGS: The kidneys are normal in caliber, the right kidney measures 11.9 x 5.0 x 7.8 cm and the left kidney measures 13.0 x 7.6 x 3.8 cm in its craniocaudal, AP, and transverse dimensions respectively. There is normal renal cortical thickness, and cortical echogenicity. There is no renal calculus or hydronephrosis. The urinary bladder is empty with Thomas???s bulb. There is wall thickening (0.6 cm). IMPRESSION: Urinary bladder wall thickening of concern for cystitis. Recommend urine routine. Previously demonstrated bilateral moderate hydroureteronephrosis is not visualized. /Gould DICTATED BY: ALICE LEARY Jr., MD DATE: 12/17/24943 ELECTRONICALLY SIGNED BY: ALICE LEARY Jr., MD DATE: 12/17/24943 PATIENT: ASHA SUERO MR#: [id number] : 1975 SEX: M AGE: 49 [facility] STATUS: ADM IN REPORT#: [id number] SERVICE 1040 REASON: urinary retention, testicular swelling wo per provider ORDERING PHYSICIAN: NYLA MORALES PROCEDURE: ABD PEL WO - CT ABDOMEN/PELVIS W/O CONTRAST EXAM: CT Abdomen and Pelvis Without IV contrast CLINICAL HISTORY: urinary retention, testicular swelling wo per provider TECHNIQUE: Axial computed tomography images of the abdomen and pelvis without intravenous contrast. CONTRAST: No IV contrast. COMPARISON: [facility] dated 02/08/23 FINDINGS: LUNG BASES: There are atelectatic bands within the bilateral lower lobes. LIVER: Unremarkable. GALLBLADDER AND BILE DUCTS: Post cholecystectomy status with surgical clips in situ. PANCREAS: Unremarkable. SPLEEN: Unremarkable. ADRENAL GLANDS: Unremarkable. KIDNEYS, URETERS, AND BLADDER: There is marked concentric bladder wall thickening, more pronounced posteriorly, with perivesicular fat stranding likely reflecting cystitis. There is reflux within the bilateral ureters resulting in severe bilateral hydronephrosis and also bilateral perinephric fat stranding reflecting pyelonephritis. There is no radiopaque calculus appreciated. STOMACH AND BOWEL: Unremarkable appearance of the stomach and bowel. No evidence of bowel obstruction. No evidence suggesting enteritis or colitis. APPENDIX: No evidence of acute appendicitis on CT examination. PERITONEUM: Small 7 mm fat-containing umbilical hernia. LYMPH NODES: No lymphadenopathy is evident. REPRODUCTIVE: A well-defined hypodense collection along the right penoscrotal region, measuring 6 x 5.1 cm, concerning for abscess. VASCULATURE: Atherosclerotic changes of the abdominal aorta. BONES: No aggressive appearing osseous lesion. No acute osseous pathology evident. IMPRESSION: 1. Severe bilateral hydronephrosis with pyelonephritis and perinephric fat stranding. 2. Marked bladder wall thickening with perivesicular fat stranding, compatible with cystitis. 3. 6 x 5.1 cm right penoscrotal hypodense collection, concerning for abscess. /Eastern DICTATED BY: ALICE LEARY Jr., MD DATE: 12/15/241458 ELECTRONICALLY SIGNED BY: ALICE LEARY Jr., MD DATE: 12/15/241458 PATIENT: ASHA SUERO MR#: [id number] : 1975 SEX: M AGE: 49 LOCATION: ED ORDER 103 STATUS: [facility] REPORT#: [id number] SERVICE 103 REASON: SEPSIS ORDERING PHYSICIAN: NYLA MORALES PROCEDURE: CXR1VW - CHEST 1VW EXAM: CR Chest, 1 View. CLINICAL HISTORY: SEPSIS COMPARISON: None provided. FINDINGS: LUNGS: There is no mass, infiltrate, or acute pulmonary abnormality. Mild bibasilar atelectasis. PLEURAL SPACES: No pleural effusion or pneumothorax. MEDIASTINUM: The cardiomediastinal silhouette is within normal limits. BONES: No acute osseous abnormality. IMPRESSION: No acute cardiopulmonary pathology is evident. /Eastern DICTATED BY: ALICE LEARY Jr., MD DATE: 12/15/241348 ELECTRONICALLY SIGNED BY: ALICE LEARY Jr., MD DATE: 12/15/241348 PATIENT: ASHA SUERO MR#: [id number] : 1975 SEX: M AGE: 49 LOCATION: ED ORDER 1015 STATUS: REG REPORT#: [id number] SERVICE 1013 REASON: TESTICULAR PAIN/SWELLING ORDERING PHYSICIAN: NYLA MORALES PROCEDURE: SCROTUM - US SCROTUM & CONTENTS ADDENDUM REPORT ADDENDUM: Results were shared by telephone at 13:33 pm on 12-15-24 and acknowledged by Nyla Ordonez /Eastern EXAM: US Scrotum. CLINICAL HISTORY: TESTICULAR PAIN/SWELLING TECHNIQUE: Real-time ultrasound of the scrotum with color Doppler and image documentation. COMPARISON: Study dated 07/29. FINDINGS: RIGHT TESTICLE: Normal in size (3.3 cm x 1.5 cm x 2.4 cm) and echogenicity, no abnormal mass. Mildly reduced Doppler flow. LEFT TESTICLE: Normal in size (3.6 cm x 1.4 cm x 2.1 cm) and echogenicity, no abnormal mass. Normal Doppler flow. EPIDIDYMIDES: Within normal limits in size and vascularity. A 3 x 3 x 3 mm cyst along the head of the right epididymis. SCROTUM: There is significant improvement of previously documented abscess measuring 2.5 x 2.2 cm along the right scrotal wall (6 mm). No hydrocele, varicocele seen. IMPRESSION: 1. Scrotal wall abscess along the right side, measuring 2.5 x 2.2 cm, showing significant improvement/reduction in size. 2. Mildly reduced blood flow to the right testicle. Clinical correlation is advised for possible intermittent right testicular torsion. /Eastern DICTATED BY: ALICE LEARY Jr., MD DATE: 12/15/24 1339 ELECTRONICALLY SIGNED BY: DATE: EXAM: US Scrotum. CLINICAL HISTORY: TESTICULAR PAIN/SWELLING TECHNIQUE: Real-time ultrasound of the scrotum with color Doppler and image documentation. COMPARISON: Study dated 07/29. FINDINGS: RIGHT TESTICLE: Normal in size (3.3 cm x 1.5 cm x 2.4 cm) and echogenicity, no abnormal mass. Mildly reduced Doppler flow. LEFT TESTICLE: Normal in size (3.6 cm x 1.4 cm x 2.1 cm) and echogenicity, no abnormal mass. Normal Doppler flow. EPIDIDYMIDES: Within normal limits in size and vascularity. A 3 x 3 x 3 mm cyst along the head of the right epididymis. SCROTUM: There is significant improvement of previously documented abscess measuring 2.5 x 2.2 cm along the right scrotal wall (6 mm). No hydrocele, varicocele seen. IMPRESSION: 1. Scrotal wall abscess along the right side, measuring 2.5 x 2.2 cm, showing significant improvement/reduction in size. 2. Mildly reduced blood flow to the right testicle. Clinical correlation is advised for possible intermittent right testicular torsion. /Gould DICTATED BY: ALICE LEARY Jr., MD DATE: 12/15/241323 ELECTRONICALLY SIGNED BY: ALICE LEARY Jr., MD DATE: 12/15/241323 ASSESSMENT: Acute on chronic renal failure Nephrotic syndrome Anemia Severe bilateral hydronephrosis with pyelonephritis Sepsis Progressive scrotal cellulitis with developing right hemiscrotum abscess Severe complicated urinary tract infection Urinary retention S/p Thomas catheter Electrolyte derangement Coronary artery disease Uncontrolled Diabetes mellitus type 2 Hyperlipidemia Hypertension PAD S/p left AKA Severe protein calorie malnutrition Obesity Debility Right eye blindness Decreased vision of left eye PLAN: Labs, diagnostic, radiologic exams reviewed and interpreted by myself and supervising physician. We have reviewed external records in detail Continue with the antibiotics as per ID Require close monitoring of renal function and electrolytes Order CBC, CMP, and electrolytes in am BiPAP as necessary, for respiratory distress Monitor blood pressure adjust medication doses as needed Avoid hypotensive episodes May use Dilaudid 0.5 mg IV every 6 hours as needed for severe pain Monitor blood sugars Strict intake, output, and daily weight should be monitored Please renally adjust medications Avoid nephrotoxic and nonsteroidal drugs Avoid contrast if possible Will continue to monitor renal function, anemia, electrolytes Treatment plan discussed with patient Questions were answered We have discussed with the other team physicians in detail about the care plan We will continue to monitor the patient closely ATTESTATION BY PHYSICIAN I have seen and examined the patient. I reviewed the documentation, medical decision making, and treatment plan as noted by the mid-level provider above. I agree with the findings and plan of care. KRUPA MANDEL MD, [facility] Dec 22, 2024 14:37
[2024-12-22 16:00] VITALS: BP 154/89; PULSE 77; RESP 18; TEMP 98.7
--- NOTE | 2024-12-22 16:28 | PN ---
INFECTIOUS DISEASE PROGRESS NOTE Date of Service: Dec 22, 2024 SUBJECTIVE: Patient was seen and examined at bedside in room 416. During rounding today patient is resting comfortably in bed. Patient had a low- grade fever of 99.9 this morning, the WBC however has trended down to 10.8. Patient is s/p drainage and excisional debridement of the scrotal wall abscess on 12/16/2024 and has a Wound VAC in placed. We will continue on fluconazole and Meropenem. No reports of nausea or vomiting. Patient has been referred to LTAC and pending insurance approval. We will continue to follow patient's care. PHYSICAL EXAM EYES: Anicteric. Pupils equal and reactive. HENT: No oral thrush seen, moist Oral mucosa. NECK: Supple, no JVD or thyromegaly. LUNGS: Good air entry. No rales, no rhonchi. CARDIOVASCULAR: S1, S2 regular. No murmur heard. ABDOMEN: Soft, non tender, bowel sounds present, no organomegaly. CENTRAL NERVOUS SYSTEM: Awake, alert, oriented x 3. SKIN: No rashes, no swelling. LYMPHATICS: No peripheral lymphadenopathy MUSCULOSKELETAL: No joint swelling, erythema or tenderness. EXTREMITIES: No cyanosis or clubbing. BACK: No deformity, no pressure ulcer. GENITOURINARY: No dysuria or hematuria. Thomas catheter. Scrotal abscess, s/p drainage and debridement. Vital Sign (Last 12 Hours) 12/22/24 12/22/24 08:00 12:00 Temp 99.9 99.0 Pulse 82 84 Resp 18 18 B/P (MAP) 156/89 153/87 Pulse Ox 95 95 O2 Delivery Room Air Room Air Intake & Output (last 24hrs) 12/21/24 12/21/24 12/22/24 14:59 22:59 06:59 Intake Total 75 ml 75 ml Output Total 2000 ml 825 ml 750 ml Balance -1925 ml -750 ml -750 ml LABS: Laboratory: Test 12/22/24 15:53 12/22/24 11:50 12/22/24 05:12 Range/Units Whole Blood Glucose 105 70-110 MG/DL Bedside Glucose Comment Notified Nurse White Blood Count 10.8 4.8-10.8 K/uL Red Blood Count 4.11 L 4.50-6.20 MIL/uL Hemoglobin 10.3 L 14.0-18.0 g/dL Hematocrit 32.4 L 42-54 % Mean Corpuscular Volume 78.8 L 79-99 fL Mean Corpuscular Hemoglobin 25.1 L 27.0-33.0 pg Mean Corpuscular Hemoglobin Concent 31.8 L 32.0-36.0 g/dL Red Cell Distribution Width 13.6 11.0-15.5 % Platelet Count 601 H 130-400 K/uL Mean Platelet Volume 8.9 7.5-10.5 fL Nucleated Red Blood Cells 0.0 0.0-0.19 % Sodium Level 138 136-145 mmol/L Potassium Level 4.6 3.5-5.1 mmol/L Chloride Level 103 101-111 mmol/L Carbon Dioxide Level 31 21-32 mmol/L Blood Urea Nitrogen 35 H 7-18 mg/dL Creatinine 1.3 0.5-1.3 mg/dL Glomerular Filtration Rate Calc 68 >90 mL/min Random Glucose 217 H 70-105 mg/dL Total Calcium 8.5 8.5-10.1 mg/dL Magnesium Level 1.70 L 1.80-2.40 mg/dL Total Bilirubin 0.2 0.2-1.0 mg/dL Aspartate Amino Transf (AST/SGOT) 20 10-37 U/L Alanine Aminotransferase (ALT/SGPT) 26 12-78 U/L Alkaline Phosphatase 200 H 50-136 U/L Total Protein 7.2 6.0-8.3 g/dL Albumin 1.6 L 3.5-5.0 g/dL ASSESSMENT: Perineal abscess, s/p drainage and excisional debridement on 12/16/2024 Sepsis, resolving. Polymicrobial infection. Urinary tract infection. Leukocytosis, resolving. Acute renal failure, resolving. Hydronephrosis. Diabetes mellitus. Recent right Scrotal wall abscess with I&D and debridement on 08/01/2024. PLAN: Continue fluconazole. Continue Meropenem. Continue GI prophylaxis. Continue pain management. Continue wound care Continue antidiabetics. Avoid nephrotoxic medications. Case management working on placement to LTAC. This case was reviewed and discussed with my supervising physician and the above assessment and plan was formulated and agreed upon. ATTESTATION BY PHYSICIAN I have seen and examined the patient. I reviewed the documentation, medical decision making, and treatment plan as noted by the mid-level provider above. I agree with the findings and plan of care. GRANT SUMMERS MD, [facility] Dec 22, 2024 16:28
[2024-12-22] MEDS: PHARMACY COMMUNICATION MISC SCH (18:00)
[2024-12-22] MEDS: MEROPENEM 1GM 1 GM VIAL IV SCH (19:23)
[2024-12-22 20:00] VITALS: BP 154/81; PULSE 76; RESP 18; TEMP 98.7; O2SAT 94
--- NOTE | 2024-12-22 21:10 | PN ---
Endocrinology progress note DOS: 12/22/24 subjective: hyperglycemia is improving now s/p surgery for deep perineal abscess.s/p wound vac. glucose are improving. Home diabetic regimen: lantus 50 units daily, lispro insulin 25 units tid before meals, janumet mg bid Hba1c 14% PAST SURGICAL HISTORY: [Left AKA, right leg stents x4, cardiac stent x3 , hx of Incision and drainage with debridement of right perineal and ischiorectal abscess tracking into the scrotum by Dr. Choudhury on 07/2024 PAST SOCIAL HISTORY: [Patient lives with his . Patient denies alcohol tobacco and recreational drug use . Patient states he used to smoke cigarette for 17 years two packs per day and quit two years ago] Allergies: Morphine causes headache Home medications: patient reports being on [id number] mg daily, Gaonek66 mg daily, Lantus 50 units daily, insulin lispro,5 units b.i.d. p.c., losartan 50 mg daily, Colace daily, Janumet twice daily, Flomax 0.4 mg daily, clotrimazole cream twice daily, ferrous [id number] mg daily, Lipitor 40 mg daily Coded Allergies: morphine (Unverified Allergy, Intermediate, HALLUCINATIONS, 02/13/23) DIAGNOSTICS / RADIOLOGY: SERVICE 1040 REASON: urinary retention, testicular swelling wo per provider ORDERING PHYSICIAN: NYLA MORALES PROCEDURE: ABD PEL WO - CT ABDOMEN/PELVIS W/O CONTRAST EXAM: CT Abdomen and Pelvis Without IV contrast CLINICAL HISTORY: urinary retention, testicular swelling wo per provider TECHNIQUE: Axial computed tomography images of the abdomen and pelvis without intravenous contrast. CONTRAST: No IV contrast. COMPARISON: [facility] dated 02/08/23 FINDINGS: LUNG BASES: There are atelectatic bands within the bilateral lower lobes. LIVER: Unremarkable. GALLBLADDER AND BILE DUCTS: Post cholecystectomy status with surgical clips in situ. PANCREAS: Unremarkable. SPLEEN: Unremarkable. ADRENAL GLANDS: Unremarkable. KIDNEYS, URETERS, AND BLADDER: There is marked concentric bladder wall thickening, more pronounced posteriorly, with perivesicular fat stranding likely reflecting cystitis. There is reflux within the bilateral ureters resulting in severe bilateral hydronephrosis and also bilateral perinephric fat stranding reflecting pyelonephritis. There is no radiopaque calculus appreciated. STOMACH AND BOWEL: Unremarkable appearance of the stomach and bowel. No evidence of bowel obstruction. No evidence suggesting enteritis or colitis. APPENDIX: No evidence of acute appendicitis on CT examination. PERITONEUM: Small 7 mm fat-containing umbilical hernia. LYMPH NODES: No lymphadenopathy is evident. REPRODUCTIVE: A well-defined hypodense collection along the right penoscrotal region, measuring 6 x 5.1 cm, concerning for abscess. VASCULATURE: Atherosclerotic changes of the abdominal aorta. BONES: No aggressive appearing osseous lesion. No acute osseous pathology evident. IMPRESSION: 1. Severe bilateral hydronephrosis with pyelonephritis and perinephric fat stranding. 2. Marked bladder wall thickening with perivesicular fat stranding, compatible with cystitis. 3. 6 x 5.1 cm right penoscrotal hypodense collection, concerning for abscess. /[place] DICTATED BY: ALICE LEARY Jr., MD DATE: 12/15/241458 ELECTRONICALLY SIGNED BY: ALICE LEARY Jr., MD DATE: 12/15/241458 ELECTRONICALLY SIGNED BY: DATE: EXAM: US Scrotum. CLINICAL HISTORY: TESTICULAR PAIN/SWELLING TECHNIQUE: Real-time ultrasound of the scrotum with color Doppler and image documentation. COMPARISON: Study dated 07/29. FINDINGS: RIGHT TESTICLE: Normal in size (3.3 cm x 1.5 cm x 2.4 cm) and echogenicity, no abnormal mass. Mildly reduced Doppler flow. LEFT TESTICLE: Normal in size (3.6 cm x 1.4 cm x 2.1 cm) and echogenicity, no abnormal mass. Normal Doppler flow. EPIDIDYMIDES: Within normal limits in size and vascularity. A 3 x 3 x 3 mm cyst along the head of the right epididymis. SCROTUM: There is significant improvement of previously documented abscess measuring 2.5 x 2.2 cm along the right scrotal wall (6 mm). No hydrocele, varicocele seen. IMPRESSION: 1. Scrotal wall abscess along the right side, measuring 2.5 x 2.2 cm, showing significant improvement/reduction in size. 2. Mildly reduced blood flow to the right testicle. Clinical correlation is advised for possible intermittent right testicular torsion. /[place] DICTATED BY: ALICE LEARY Jr., MD DATE: 12/15/241323 ELECTRONICALLY SIGNED BY: ALICE LEARY Jr., MD DATE: 12/15/241323 ASSESSMENT: uncontrolled DM-2 and hyperglycemia insulin adjusted and glucose are improving. now s/p surgery for deep perineal abscess. .s/p wound vac. glucose are improving. Home diabetic regimen: lantus 50 units daily, lispro insulin 25 units tid before meals, janumet mg bid Hba1c 14% Sepsis secondary to complicated urinary tract infection and scrotal cellulitis with abscess, POA s/p surgery Progressive scrotal cellulitis with developing right hemiscrotal abscess, POA Severe complicated urinary tract infection, POA Urinary retention status post Thomas catheter placement, POA Bilateral hydronephrosis, POA Acute kidney injury with underlying history of chronic kidney disease, POA History of Farxiga use as outpatient, POA but off due to hx of perineal abscess Hypertension, POA History of dual antiplatelet therapy with aspirin and Plavix as outpatient, POA History of coronary artery disease with prior history of coronary intervention and stenting, POA History of peripheral arterial disease with history of lower extremity angioplasty and stenting, POA History of TIA, POA Hypertension, POA Hyperlipidemia, POA Debility, POA Right eye blindness, POA Decreased vision of left eye, POA History of iron deficiency anemia, POA History of hospitalization in [facility] for right epididymo-orchitis with abscess requiring surgical drainage,07/2024, POA PLAN: continue Lantus 50 units daily and adjust for fasting glucose. continue Regular insulin 17 units daily and adjust for post-prandial glucose. Continue medium dose sliding scale insulin. Monitor glucose q x 6 hourly. Continue carb consistent diet. Keep glucose less than 180 mg/dl. Vitals/Labs Vital Signs Date Time Temp Pulse Resp B/P (MAP) Pulse Ox O2 Delivery O2 Flow Rate FiO2 12/22/24 16:00 98.8 77 18 154/89 95 Room Air 12/22/24 08:00 0 21 Laboratory Tests 12/22/24 05:12 Medications Current Medications Acetaminophen 1,000 mg ONCE ONCE PO Last administered on 12/15/24at 11:13; Start 12/15/24 at 11:00; Stop 12/15/24 at 11:01; Status DC Sodium Chloride 1,000 ml @ 0 mls/hr ONCE ONCE IV Last administered on 12/15/24at 11:33; Start 12/15/24 at 11:00; Stop 12/15/24 at 11:01; Status DC Vancomycin HCl 1 each AD IV; Start 12/15/24 at 11:00; Stop 12/15/24 at 23:52; Status DC Cefepime HCl 1 gm ONCE ONCE IVPB Last administered on 12/15/24at 11:37; Start 12/15/24 at 11:00; Stop 12/15/24 at 11:01; Status DC Vancomycin HCl 250 ml @ 125 mls/hr ONCE ONCE IV Last administered on 12/15/24at 11:51; Start 12/15/24 at 11:00; Stop 12/15/24 at 12:59; Status DC Insulin Human Regular 10 unit ONCE ONCE IV Last administered on 12/15/24at 11:48; Start 12/15/24 at 11:30; Stop 12/15/24 at 11:31; Status DC Vancomycin HCl 250 ml @ 125 mls/hr Q48H IV; Start 12/17/24 at 11:00; Stop 12/15/24 at 13:19; Status DC Insulin Human Regular INSULIN SLIDING SCAL... ACHS SQ Last administered on 12/15/24at 21:03; Start 12/15/24 at 16:30; Stop 12/16/24 at 06:19; Status DC Dextrose 50 ml AD PRN IV; Start 12/15/24 at 13:30; Stop 01/14/25 at 13:29 Glucagon 1 mg AD PRN IM; Start 12/15/24 at 13:30; Stop 01/14/25 at 13:29 Pharmacy Profile Note 1 each ONCE MISC; Start 12/15/24 at 13:30; Stop 12/15/24 at 14:18; Status DC Atorvastatin Calcium 40 mg HS PO Last administered on 12/22/24at 19:23; Start 12/15/24 at 21:00; Stop 01/14/25 at 20:59 Tamsulosin HCl 0.4 mg DAILY PO Last administered on 12/22/24at 08:46; Start 12/16/24 at 09:00; Stop 01/15/25 at 08:59 Ferrous Sulfate 325 mg DAILY PO Last administered on 12/22/24at 08:46; Start 12/16/24 at 09:00; Stop 01/15/25 at 08:59 Home Med (Sennosides/ Docusate Sodium (Colace 2-i... DAILY PO; Start 12/16/24 at 09:00; Stop 12/21/24 at 10:37; Status DC Sodium Chloride 1,000 ml @ 75 mls/hr [id number] IV Last administered on 12/17/24at 01:40; Start 12/15/24 at 13:30; Stop 12/17/24 at 10:49; Status DC Hydromorphone HCl 0.2 mg Q6H PRN IVP Last administered on 12/17/24at 04:34; Start 12/15/24 at 13:30; Stop 12/18/24 at 09:00; Status DC Famotidine 20 mg DAILY IV Last administered on 12/17/24at 08:53; Start 12/16/24 at 09:00; Stop 12/17/24 at 10:49; Status DC Sodium Chloride 500 ml @ 0 mls/hr ONCE ONCE IV Last administered on 12/15/24at 15:13; Start 12/15/24 at 14:30; Stop 12/15/24 at 14:31; Status DC Hydralazine HCl 5 mg Q6H PRN IV; Start 12/15/24 at 14:30; Stop 01/14/25 at 14:29 Meropenem 1 gm Q12H IVPB Last administered on 12/17/24at 17:11; Start 12/15/24 at 16:00; Stop 12/17/24 at 19:54; Status DC Linezolid 300 ml @ 150 mls/hr Q12H IV Last administered on 12/17/24at 08:53; Start 12/15/24 at 21:00; Stop 12/17/24 at 19:54; Status DC Vitamin B Complex/ Vit C/Folic Acid 1 cap DAILY PO Last administered on 12/22/24at 08:46; Start 12/16/24 at 09:00; Stop 01/15/25 at 08:59 Insulin Glargine 25 units HS SQ; Start 12/15/24 at 21:00; Stop 12/15/24 at 18:52; Status DC Insulin Glargine 20 units HS SQ Last administered on 12/15/24at 21:05; Start 12/15/24 at 21:00; Stop 12/16/24 at 06:19; Status DC Insulin Glargine 20 units DAILY SQ; Start 12/16/24 at 09:00; Stop 12/17/24 at 07:32; Status DC Insulin Human Regular 8 unit TIDAC SQ Last administered on 12/17/24at 06:59; Start 12/16/24 at 07:30; Stop 12/17/24 at 07:32; Status DC Insulin Human Regular INSULIN SLIDING SCAL... ACHS SQ Last administered on 12/22/24at 11:30; Start 12/16/24 at 07:30; Stop 01/15/25 at 07:29 Sodium Bicarbonate 650 mg QID PO Last administered on 12/22/24at 19:24; Start 12/16/24 at 13:00; Stop 01/15/25 at 12:59 Sodium Bicarbonate 50 meq ONCE ONCE IV Last administered on 12/16/24at 12:34; Start 12/16/24 at 12:00; Stop 12/16/24 at 12:05; Status DC Dexamethasone Sodium Phosphate 4 mg STK-MED ONCE .ROUTE; Start 12/16/24 at 15:54; Stop 12/16/24 at 16:00; Status DC Lidocaine HCl 5 ml STK-MED ONCE .ROUTE; Start 12/16/24 at 15:54; Stop 12/16/24 at 16:00; Status DC Midazolam HCl 2 mg STK-MED ONCE .ROUTE; Start 12/16/24 at 15:55; Stop 12/16/24 at 16:00; Status DC Propofol 200 mg STK-MED ONCE IV; Start 12/16/24 at 15:55; Stop 12/16/24 at 16:00; Status DC Succinylcholine Chloride 200 mg STK-MED ONCE .ROUTE; Start 12/16/24 at 15:55; Stop 12/16/24 at 16:00; Status DC Ondansetron HCl 4 mg STK-MED ONCE .ROUTE; Start 12/16/24 at 15:55; Stop 12/16/24 at 16:00; Status DC Rocuronium [place] 50 mg STK-MED ONCE .ROUTE; Start 12/16/24 at 15:55; Stop 12/16/24 at 16:00; Status DC Fentanyl Citrate 100 mcg STK-MED ONCE .ROUTE; Start 12/16/24 at 15:55; Stop 12/16/24 at 16:00; Status DC Insulin Glargine 50 units DAILY SQ Last administered on 12/22/24at 09:23; Start 12/17/24 at 09:00; Stop 01/16/25 at 08:59 Insulin Human Regular 15 unit TIDAC SQ Last administered on 12/20/24at 16:01; Start 12/17/24 at 07:30; Stop 12/20/24 at 21:39; Status DC Naloxone HCl 2 mg ONCE IV; Start 12/17/24 at 11:00; Stop 12/17/24 at 10:36; Status DC Naloxone HCl 2 mg ONCE ONCE IV; Start 12/17/24 at 11:00; Stop 12/17/24 at 11:01; Status DC Heparin Sodium (Porcine) 5,000 unit BID SQ Last administered on 12/22/24at 19:27; Start 12/17/24 at 11:00; Stop 01/16/25 at 10:59 Pantoprazole Sodium 40 mg DAILY IVP Last administered on 12/22/24at 08:47; Start 12/18/24 at 09:00; Stop 01/17/25 at 08:59 Sodium Bicarbonate 150 meq/Dextrose 1,150 ml @ 50 mls/hr Q23H IVP Last administered on 12/18/24at 08:25; Start 12/17/24 at 11:00; Stop 12/18/24 at 11:36; Status DC Aspirin 81 mg DAILY PO Last administered on 12/22/24at 08:46; Start 12/18/24 at 09:00; Stop 01/17/25 at 08:59 Acetaminophen 1,000 mg ONCE IVPB Last administered on 12/17/24at 17:11; Start 12/17/24 at 17:00; Stop 12/18/24 at 18:10; Status DC Linezolid 300 ml @ 150 mls/hr Q12H IV Last administered on 12/19/24at 10:01; Start 12/17/24 at 21:00; Stop 12/19/24 at 20:59; Status DC Meropenem 1 gm Q12H IVPB Last administered on 12/20/24at 16:01; Start 12/18/24 at 04:00; Stop 12/20/24 at 23:00; Status DC Magnesium Sulfate 50 ml @ 0 mls/hr PROTOCOL PRN IV Last administered on 12/18/24at 10:42; Start 12/18/24 at 09:30; Stop 12/20/24 at 09:53; Status DC Leptospermum Honey 1 APPLICATION ONCE STAT TP Last administered on 12/19/24at 16:35; Start 12/19/24 at 16:04; Stop 12/19/24 at 16:06; Status DC Leptospermum Honey 1 APPL [id number] TP Last administered on 12/21/24at 09:43; Start 12/21/24 at 09:00; Stop 01/20/25 at 08:59 Fluconazole/ Sodium Chloride 100 ml @ 100 mls/hr DAILY IV Last administered on 12/22/24at 09:23; Start 12/21/24 at 09:00; Stop 01/20/25 at 08:59 Magnesium Sulfate 50 ml @ 0 mls/hr PROTOCOL IV Last administered on 12/21/24at 06:41; Start 12/20/24 at 10:00; Stop 01/19/25 at 09:59 Insulin Human Regular 16 unit TIDAC SQ Last administered on 12/22/24at 11:30; Start 12/21/24 at 07:30; Stop 01/20/25 at 07:29 Ondansetron HCl 4 mg Q6H6 PRN IVP Last administered on 12/21/24at 03:17; Start 12/21/24 at 02:30; Stop 01/20/25 at 02:29 Sennosides 1 tab DAILY PO Last administered on 12/22/24at 08:46; Start 12/21/24 at 11:00; Stop 01/20/25 at 10:59 Docusate Sodium 50 mg DAILY PO Last administered on 12/22/24at 08:47; Start 12/21/24 at 11:00; Stop 01/20/25 at 10:59 Mupirocin 1 APPL BID TP Last administered on 12/22/24at 19:40; Start 12/21/24 at 12:30; Stop 01/20/25 at 12:29 Hydromorphone HCl 0.2 mg Q4H PRN IVP; Start 12/21/24 at 12:21; Stop 12/26/24 at 12:20 Magnesium Sulfate 50 ml @ 0 mls/hr PROTOCOL IV; Start 12/21/24 at 14:30; Stop 12/21/24 at 14:25; Status DC Pharmacy Profile Note 1 each ONCE MISC; Start 12/22/24 at 18:00; Stop 12/22/24 at 18:01; Status DC Meropenem 1 gm BID@0600,1800 IV Last administered on 12/22/24at 19:23; Start 12/22/24 at 18:00; Stop 01/01/25 at 17:59 CINDY HALE MD Dec 22, 2024 21:10
[2024-12-23] VITALS (8 sets, daily range): BP systolic 138–169; BP diastolic 82–93; PULSE 72–80; RESP 16–20; TEMP 97.6–98.5; O2SAT 96–98
[2024-12-23 05:13] LABS: IMMATURE GRANULOCYTE ABSOLUTE 0.09 K/uL (0-1); NUCLEATED RED BLOOD CELLS 0.0 % (0.0-0.19); PLATELET COUNT (AUTO) 600 K/uL (130-400); RED BLOOD CELL COUNT(AUTO) 4.28 MIL/uL (4.50-6.20); RED CELL DISTRIBUTION WIDTH 13.9 % (11.0-15.5); WHITE BLOOD COUNT (AUTO) 9.2 K/uL (4.8-10.8)
[2024-12-23 05:30] LABS: ASPARTATE AMINOTRANSFERASE 20.0 U/L (10-37); CREATININE 1.3 mg/dL (0.5-1.3); GLOMERULAR FILTR. RATE CALC 68.0 mL/min (>90); GLUCOSE,RANDOM 214.0 mg/dL (70-105); PHOSPHORUS 3.8 mg/dL (2.5-4.9); SODIUM SERUM 139.0 mmol/L (136-145); TOTAL PROTEIN, SERUM 7.4 g/dL (6.0-8.3); UREA NITROGEN, BLOOD 29.0 mg/dL (7-18)
[2024-12-23] MEDS: MAGNESIUM 4GM PREMIX 100ML IV ONE (07:00)
--- NOTE | 2024-12-23 10:18 | PN ---
NEPHROLOGY PROGRESS NOTE Date/Time Patient Seen: Dec 23, 2024 SUBJECTIVE: This is a 49-year-old male with a past medical history of diabetes mellitus type 2, hypertension, peripheral arterial disease with left AKA, coronary artery disease, hyperlipidemia, GERD, PAD, and obesity Patient presented to the emergency room for fever and scrotum swelling. Thomas in place due to urinary retention Blood and urine cultures have been collected, pending results Continues on broad-spectrum antibiotics. We have consulted for renal failure. Renal function and electrolytes are stable. UA positive for proteinuria. Hemoglobin noted CT of the abdomen showed severe bilateral hydronephrosis. Marked bladder wall thickening with perivesicular fat stranding Renal ultrasound showed Urinary bladder wall thickening of concern for cystitis. Recommend urine routine. Previously demonstrated bilateral moderate hydroureteronephrosis is not visualized. 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 Case management coordinating LTAC placement, pending insurance authorization Family at the bedside Prognosis remains guarded REVIEW OF SYSTEMS: GENERAL: Positive for fever and scrotum swelling. NEUROLOGIC: Negative for any blurry vision, blind spots, double vision, facial asymmetry, dysphagia, dysarthria, hemiparesis, hemisensory deficits, vertigo, ataxia. HEENT: Negative for any head trauma, neck trauma, neck stiffness, photophobia, phonophobia, sinusitis, rhinitis. CARDIAC: Negative for any chest pain, dyspnea on exertion, paroxysmal nocturnal dyspnea, peripheral edema. PULMONARY: Negative for any shortness of breath, wheezing, COPD, or TB exposure. GASTROINTESTINAL: Negative for any abdominal pain, nausea, vomiting, bright red blood per rectum, melena. GENITOURINARY: Negative for any dysuria, hematuria, incontinence. INTEGUMENTARY: Negative for any rashes, cuts, insect bites. RHEUMATOLOGIC: Negative for any joint pains, photosensitive rashes, history of vasculitis or kidney problems. HEMATOLOGIC: Negative for any abnormal bruising, frequent infections or bleeding. Vital Signs (last 8hr) Date Time Temp Pulse Resp B/P (MAP) Pulse Ox O2 Delivery O2 Flow Rate FiO2 12/23/24 08:37 97.9 76 18 154/90 98 Room Air 12/23/24 04:00 98.4 75 18 152/93 93 Room Air PHYSICAL EXAM: GENERAL: Alert and oriented x 3. No acute distress. Well-nourished. EYES: EOMI. Anicteric. HENT: Moist mucous membranes. No scleral icterus. No cervical lymphadenopathy. LUNGS: Clear to auscultation bilaterally. No accessory muscle use. CARDIOVASCULAR: Regular rate and rhythm. No murmur. No JVD. ABDOMEN: Soft, non-tender and non-distended. No palpable masses. EXTREMITIES: No edema. Non-tender. SKIN: No rashes or lesions. Warm. NEUROLOGIC: No focal neurological deficits. CN II-XII grossly intact, but not individually tested. PSYCHIATRIC: Cooperative. Appropriate mood and affect. Current Medications Medications (Trade) Dose Ordered Sig/Gaby Route Start Time Stop Time Status Last Admin Dose Admin Atorvastatin Calcium (LIPItor 40MG) 40 mg HS PO 12/15/24 21:00 01/14/25 20:59 12/15/24 21:05 40 MG Famotidine (Pepcid 20mg Vial) 20 mg DAILY IV 12/16/24 09:00 01/15/25 08:59 12/16/24 09:12 20 MG Ferrous Sulfate (Ferrous Sulfate) 325 mg DAILY PO 12/16/24 09:00 01/15/25 08:59 Home Med (Home Medication) (Sennosides/ Docusate Sodium (Colace 2-i... DAILY PO 12/16/24 09:00 01/15/25 08:59 Insulin Glargine (LANtus 100 UNITS/ML 10 ML VIAL) 20 units DAILY SQ 12/16/24 09:00 01/14/25 20:59 Insulin Glargine (LANtus 100 UNITS/ML 10 ML VIAL) 20 units HS SQ 12/15/24 21:00 12/16/24 06:19 DC 12/15/24 21:05 20 UNITS Insulin Glargine (LANtus 100 UNITS/ML 10 ML VIAL) 25 units HS SQ 12/15/24 21:00 12/15/24 18:52 DC Insulin Human Regular (humuLIN R 100 UNIT/ML 3ML) 8 unit TIDAC SQ 12/16/24 07:30 01/15/25 07:29 Insulin Human Regular (humuLIN R 100 UNIT/ML 3ML) INSULIN SLIDING SCAL... ACHS SQ 12/15/24 16:30 12/16/24 06:19 DC 12/15/24 21:03 5 UNIT Insulin Human Regular (humuLIN R 100 UNIT/ML 3ML) INSULIN SLIDING SCAL... ACHS SQ 12/16/24 07:30 01/15/25 07:29 Linezolid 300 ml @ 150 mls/hr Q12H IV 12/15/24 21:00 12/17/24 20:59 12/16/24 09:12 150 MLS/HR Meropenem (Merrem 1gm) 1 gm Q12H IVPB 12/15/24 16:00 12/17/24 23:00 12/16/24 06:02 1 GM Pharmacy Profile Note (Pharmacy Communication) 1 each ONCE MISC 12/15/24 13:30 12/15/24 14:18 DC Sodium Chloride 1,000 ml @ 75 mls/hr [id number] IV 12/15/24 13:30 01/14/25 13:29 12/16/24 02:42 75 MLS/HR Tamsulosin HCl (FloMAX) 0.4 mg DAILY PO 12/16/24 09:00 01/15/25 08:59 Vancomycin HCl 250 ml @ 125 mls/hr Q48H IV 12/17/24 11:00 12/15/24 13:19 DC Vancomycin HCl (Vancomycin Protocol) 1 each AD IV 12/15/24 11:00 12/15/24 23:52 DC Vitamin B Complex/ Vit C/Folic Acid (Nephrovite Tablet) 1 cap DAILY PO 12/16/24 09:00 01/15/25 08:59 LABORATORY: [ ] Hematology Labs: Test 12/23/24 04:36 Range/Units White Blood Count 9.2 4.8-10.8 K/uL Red Blood Count 4.28 L 4.50-6.20 MIL/uL Hemoglobin 10.7 L 14.0-18.0 g/dL Hematocrit 35.1 L 42-54 % Mean Corpuscular Volume 82.0 79-99 fL Mean Corpuscular Hemoglobin 25.0 L 27.0-33.0 pg Mean Corpuscular Hemoglobin Concent 30.5 L 32.0-36.0 g/dL Red Cell Distribution Width 13.9 11.0-15.5 % Platelet Count 600 H 130-400 K/uL Mean Platelet Volume 8.9 7.5-10.5 fL Immature Granulocyte % (Auto) 1.0 0-1 % Neutrophils (%) (Auto) 63.3 40.0-77.0 % Lymphocytes (%) (Auto) 27.1 21.0-51.0 % Monocytes (%) (Auto) 6.5 3.0-13.0 % Eosinophils (%) (Auto) 1.7 0.0-8.0 % Basophils (%) (Auto) 0.4 0.0-5.0 % Neutrophils # (Auto) 5.8 1.8-7.7 K/uL Lymphocytes # (Auto) 2.5 1.0-4.8 K/uL Monocytes # (Auto) 0.6 0.1-1.0 K/uL Eosinophils # (Auto) 0.16 0.00-0.70 K/uL Basophils # (Auto) 0.04 0.00-0.20 K/uL Absolute Immature Granulocyte (auto 0.09 0-1 K/uL Nucleated Red Blood Cells 0.0 0.0-0.19 % Red Blood Cell Morphology See comments Chemistry Labs: Test 12/23/24 05:43 12/23/24 04:36 12/22/24 11:50 Range/Units Whole Blood Glucose 189 H 70-110 MG/DL Sodium Level 139 136-145 mmol/L Potassium Level 4.4 3.5-5.1 mmol/L Chloride Level 103 101-111 mmol/L Carbon Dioxide Level 31 21-32 mmol/L Blood Urea Nitrogen 29 H 7-18 mg/dL Creatinine 1.3 0.5-1.3 mg/dL Glomerular Filtration Rate Calc 68 >90 mL/min Random Glucose 214 H 70-105 mg/dL Total Calcium 8.4 L 8.5-10.1 mg/dL Phosphorus Level 3.8 2.5-4.9 mg/dL Magnesium Level 1.40 L 1.80-2.40 mg/dL Total Bilirubin 0.2 0.2-1.0 mg/dL Aspartate Amino Transf (AST/SGOT) 20 10-37 U/L Alanine Aminotransferase (ALT/SGPT) 26 12-78 U/L Alkaline Phosphatase 207 H 50-136 U/L Total Protein 7.4 6.0-8.3 g/dL Albumin 1.7 L 3.5-5.0 g/dL Bedside Glucose Comment Notified Nurse DIAGNOSTICS / RADIOLOGY: [facility] [address] [place] [address] IMAGING REPORT Signed PATIENT: ASHA SUERO MR#: [id number] : 1975 SEX: M AGE: 49 LOCATION: 2CH ORDER 1 [facility] REPORT#: [id number] SERVICE 6 REASON: R/O STROKE ORDERING PHYSICIAN: ZARI JORDAN GROMMET WORKER PROCEDURE: MRA NECKWO - MR ANGIO NECK WO CON EXAM: MRA Neck without Intravenous Contrast. CLINICAL HISTORY: R/O STROKE TECHNIQUE: Magnetic resonance angiography images of the neck without intravenous contrast. Three-dimensional MIP reformations performed. COMPARISON: Ultrasound exam from December 17, 2024. FINDINGS: INTERNAL CAROTID ARTERIES: No significant stenosis based on NASCET criteria. COMMON CAROTID ARTERIES: No significant stenosis. No dissection. EXTERNAL CAROTID ARTERIES: No occlusion or dissection. VERTEBRAL ARTERIES: No significant stenosis. No dissection. BASILAR ARTERY: No significant stenosis. No dissection. SOFT TISSUES Unremarkable as visualized. IMPRESSION: No hemodynamically significant stenosis appreciated. /[place] DICTATED BY: ALICE LEARY Jr., MD DATE: 12/17/241653 ELECTRONICALLY SIGNED BY: ALICE LEARY Jr., MD DATE: 12/17/241653 PATIENT: ASHA SUERO MR#: [id number] : 1975 SEX: M AGE: 49 LOCATION: 2CH ORDER 1 [facility]: [facility] REPORT#: [id number] SERVICE 6 REASON: EVALUATE CARDIAC FUNCTION ORDERING PHYSICIAN: ZARI JORDAN GROMMET WORKER PROCEDURE: ECHO CMP - ECHO 2-D COMPLETE APPROVED REPORT EXAM: Two-dimensional and M-mode echocardiogram with Doppler and color Doppler. INDICATION ICD: Evalute cardiac function 2D Dimensions RVDd 4.0 cm LVEF(%) 44.4 (>50%) LVED Vol(simp.) 176.0 mL IVSd 0.9 (0.7-1.1cm) FS(%) 22 % LVES Vol(simp.) 110.0 mL LVDd 5.4 (3.8-5.6cm) LA (2D) 2.1 (1.6-4.0cm) LVEF(%, simp.) 37 % PWd 1.0 (0.7-1.1cm) Ao Root(2D) 2.6 (2.0-3.7cm) LA ESV INDEX (BP) 37.59 mL/m2 LVDs 4.2 (2.5-4.0cm) LVOT diam 2.5 (1.8-2.4cm) IVC diam 2.0 cm Deformation Strain Apical 4 -9.4 % Apical 2 -13.7 % Apical 3 -10.7 % Global Strain -11.3 % M-Mode Dimensions EPSS 1.7 cm LA (MM) 2.9 (1.6-4.0cm) Ao Root(MM) 2.6 (2.0-3.7cm) Aortic Valve AoV Vmax 0.9 m/s Ao Peak GR 3.1 mmHg LVOT Vmax 0.8 m/s AoV VTI 0.2 m Ao Mean GR 1.8 mmHg LVOT VTI 0.17 m CULLEN (VMAX) 4.18 cm2 CULLEN (VTI) 4.2 cm2 Mitral Valve MV E Vmax 64.6 cm/s DECEL Time 195 ms MV A Vmax 66.0 cm/s P 1/2 T 87 ms E/A ratio 1.0 MVA (PHT) 2.5 cm2 TDI E/E' Medial 10.5 E/E' Lateral 5.6 Medial E' Peak V 6.14 cm/s Lateral E' Peak V 11.44 cm/s Pulmonary Valve PV Vmax 0.8 m/s PV VTI 0.20 m PV Mean GR 1.3 mmHg PV Peak GR 2.4 mmHg Tricuspid Valve RAP (EST) 8 mmHg RVSP 8.0 mmHg Left Ventricle Left ventricle is normal in size. The apical anterior lateral, inferolateral carrillo are severely hypokinetic. The apical inferior wall is thin, scarred and akinetic. The other carrillo are grossly normal. There is normal left ventricular wall thickness. Left ventricle systolic function is moderately depressed, estimated LVEF 40%. Indeterminate diastolic dysfunction. Right Ventricle The right ventricle is normal size. The right ventricular systolic function is normal. Atria The left atrium is mildly dilated, 38ml/m2. The right atrium size is normal. Aortic Valve Aortic valve is trileaflet. No aortic regurgitation is present. There is no aortic valvular stenosis. Mitral Valve The mitral valve is normal in structure. The leaflets are mildly thickened. Trace mitral regurgitation. There is no mitral valve stenosis. Tricuspid Valve The tricuspid valve is normal in structure. Trace tricuspid regurgitation. RVSP is normal. Pulmonic Valve Pulmonic valve is not well visualized. Great Vessels The aortic root is normal in size. The IVC is normal in size and collapses <50% with inspiration. Pericardium There is no pericardial effusion. Other Information Quality : Technically difficult study due to body habitus Conclusion Technically limited study with poor imaging windows. The left atrium is mildly dilated, 38ml/m2. There is normal left ventricular wall thickness. The apical anterior lateral, inferolateral carrillo are severely hypokinetic. The apical inferior wall is thin, scarred and akinetic. The other carrillo are grossly normal. Left ventricle systolic function is moderately depressed, estimated LVEF 40%. Indeterminate diastolic dysfunction. Trace mitral regurgitation. Trace tricuspid regurgitation. PASP is normal. There is no pericardial effusion. Recommend repeating an echocardiogram with Definity contrast to assess wall motion and LVEF. DICTATED BY: VEE BARILLAS MD DATE: 12/17/24 1441 ELECTRONICALLY SIGNED BY: VEE BARILLAS MD DATE: 12/17/24 1707 PATIENT: ASHA SUERO MR#: [id number] : 1975 SEX: M AGE: 49 LOCATION: 2CH ORDER 0922 STATUS: ADM IN [facility] REPORT#: [id number] SERVICE 0917 REASON: EVALUATE S/S STROKE ORDERING PHYSICIAN: ZARI JORDAN GROMMET WORKER PROCEDURE: CAROTID - US CAROTID DUPLEX EXAM: US Duplex Bilateral Carotid and Vertebral Arteries. CLINICAL HISTORY: EVALUATE S/S STROKE TECHNIQUE: Real-time ultrasound scan of the bilateral carotid and vertebral arteries, 2-D grayscale, with color Doppler flow and spectral waveform analysis. COMPARISON: None provided. FINDINGS: RIGHT COMMON CAROTID ARTERY: PSV???77 cm/sec, no occlusion or significant stenosis. RIGHT INTERNAL CAROTID ARTERY: PSV???96 cm/sec, no occlusion or significant stenosis. RIGHT EXTERNAL CAROTID ARTERY: PSV- 64 cm/sec, no occlusion or significant stenosis. RIGHT VERTEBRAL ARTERY: Antegrade flow. PSV 62 cm/sec RIGHT ICA/CCA RATIO: 1.2 Within normal limits. LEFT COMMON CAROTID ARTERY: PSV- 85 cm/sec, no occlusion or significant stenosis. Soft tissue plaque in proximal CCA. LEFT INTERNAL CAROTID ARTERY: PSV- 55 cm/sec, no occlusion or significant stenosis. LEFT EXTERNAL CAROTID ARTERY: PSV -86 cm/sec No occlusion or significant stenosis. LEFT VERTEBRAL ARTERY: Antegrade flow. PSV 37 cm/sec LEFT ICA/CCA RATIO: 0.6 Within normal limits. SOFT TISSUES: No incidental abnormalities. IMPRESSION: 1. No hemodynamically significant stenosis in bilateral carotid or vertebral arteries. /[place] DICTATED BY: ALICE LEARY Jr., MD DATE: 12/17/241219 ELECTRONICALLY SIGNED BY: ALICE LEARY Jr., MD DATE: 12/17/241219 PATIENT: ASHA SUERO MR#: [id number] : 1975 SEX: M AGE: 49 LOCATION: 2CH ORDER 09 STATUS: ADM IN REPORT#: [id number] SERVICE 0908 REASON: S ORDERING PHYSICIAN: JANET IVAN MD PROCEDURE: HEAD WO - CT HEAD/BRAIN W/O CONTRAST ADDENDUM REPORT ADDENDUM: Results were shared by telephone at 11:10 am on 12/17/24 and acknowledged by Isaias Robb /[place] EXAM: Non-contrast CT examination of the Brain CLINICAL HISTORY: Rule out stroke. Altered mental status. TECHNIQUE: Thin collimated axial CT images of the brain were obtained, with sagittal and coronal reformatted images also submitted. CT scan done according to ALARA (As Low as Reasonably Achievable). CONTRAST USED: None. COMPARISON: Prior CT brain dated 02/02/23. FINDINGS: No acute intracranial abnormality is present. No acute cortical infarction, hemorrhage, mass, or mass effect. Mild generalized cerebral atrophy. No hydrocephalus or abnormal extra-axial fluid collections. Stable encephalomalacia in the bilateral inferior cerebellar hemispheres. The skull base and calvarium are intact. The mastoid air cells are clear. Mucosal disease in the visualized right maxillary sinus. IMPRESSION: No acute intracranial abnormality is present. Stable encephalomalacia in the bilateral inferior cerebellar hemispheres suggesting sequelae of prior insult. No significant interval change. /[place] DICTATED BY: ALICE LEARY Jr., MD DATE: 12/17/24 1112 ELECTRONICALLY SIGNED BY: DATE: EXAM: Non-contrast CT examination of the Brain CLINICAL HISTORY: Rule out stroke. Altered mental status. TECHNIQUE: Thin collimated axial CT images of the brain were obtained, with sagittal and coronal reformatted images also submitted. CT scan done according to ALARA (As Low as Reasonably Achievable). CONTRAST USED: None. COMPARISON: Prior CT brain dated 02/02/23. FINDINGS: No acute intracranial abnormality is present. No acute cortical infarction, hemorrhage, mass, or mass effect. Mild generalized cerebral atrophy. No hydrocephalus or abnormal extra-axial fluid collections. Stable encephalomalacia in the bilateral inferior cerebellar hemispheres. The skull base and calvarium are intact. The mastoid air cells are clear. Mucosal disease in the visualized right maxillary sinus. IMPRESSION: No acute intracranial abnormality is present. Stable encephalomalacia in the bilateral inferior cerebellar hemispheres suggesting sequelae of prior insult. No significant interval change. /[place] DICTATED BY: ALICE LEARY Jr., MD DATE: 12/17/24 1054 ELECTRONICALLY SIGNED BY: ALICE LEARY Jr., MD DATE: 12/17/24 105 PATIENT: ASHA SUERO MR#: [id number] : 1975 SEX: M AGE: 49 LOCATION: 2DH ORDER 1329 STATUS: ADM IN REPORT#: [id number] SERVICE 1329 REASON: renal failure ORDERING PHYSICIAN: JANET IVAN MD PROCEDURE: RENAL - US RENAL SONOGRAM EXAMINATION: ULTRASOUND OF THE RETROPERITONEUM. CLINICAL HISTORY: Renal failure. COMPARISON: CT abdomen and pelvis without contrast dated 12/15/2024. TECHNIQUE: Real-time grayscale ultrasound images of the kidneys. FINDINGS: The kidneys are normal in caliber, the right kidney measures 11.9 x 5.0 x 7.8 cm and the left kidney measures 13.0 x 7.6 x 3.8 cm in its craniocaudal, AP, and transverse dimensions respectively. There is normal renal cortical thickness, and cortical echogenicity. There is no renal calculus or hydronephrosis. The urinary bladder is empty with Thomas???s bulb. There is wall thickening (0.6 cm). IMPRESSION: Urinary bladder wall thickening of concern for cystitis. Recommend urine routine. Previously demonstrated bilateral moderate hydroureteronephrosis is not visualized. /[place] DICTATED BY: ALICE LEARY Jr., MD DATE: 12/17/24943 ELECTRONICALLY SIGNED BY: ALICE LEARY Jr., MD DATE: 12/17/24943 PATIENT: ASHA SUERO MR#: [id number] : 1975 SEX: M AGE: 49 LOCATION: [facility] ORDER 1041 STATUS: ADM IN REPORT#: [id number] SERVICE 1040 REASON: urinary retention, testicular swelling wo per provider ORDERING PHYSICIAN: NYLA MORALES PROCEDURE: ABD PEL WO - CT ABDOMEN/PELVIS W/O CONTRAST EXAM: CT Abdomen and Pelvis Without IV contrast CLINICAL HISTORY: urinary retention, testicular swelling wo per provider TECHNIQUE: Axial computed tomography images of the abdomen and pelvis without intravenous contrast. CONTRAST: No IV contrast. COMPARISON: [facility] dated 02/08/23 FINDINGS: LUNG BASES: There are atelectatic bands within the bilateral lower lobes. LIVER: Unremarkable. GALLBLADDER AND BILE DUCTS: Post cholecystectomy status with surgical clips in situ. PANCREAS: Unremarkable. SPLEEN: Unremarkable. ADRENAL GLANDS: Unremarkable. KIDNEYS, URETERS, AND BLADDER: There is marked concentric bladder wall thickening, more pronounced posteriorly, with perivesicular fat stranding likely reflecting cystitis. There is reflux within the bilateral ureters resulting in severe bilateral hydronephrosis and also bilateral perinephric fat stranding reflecting pyelonephritis. There is no radiopaque calculus appreciated. STOMACH AND BOWEL: Unremarkable appearance of the stomach and bowel. No evidence of bowel obstruction. No evidence suggesting enteritis or colitis. APPENDIX: No evidence of acute appendicitis on CT examination. PERITONEUM: Small 7 mm fat-containing umbilical hernia. LYMPH NODES: No lymphadenopathy is evident. REPRODUCTIVE: A well-defined hypodense collection along the right penoscrotal region, measuring 6 x 5.1 cm, concerning for abscess. VASCULATURE: Atherosclerotic changes of the abdominal aorta. BONES: No aggressive appearing osseous lesion. No acute osseous pathology evident. IMPRESSION: 1. Severe bilateral hydronephrosis with pyelonephritis and perinephric fat stranding. 2. Marked bladder wall thickening with perivesicular fat stranding, compatible with cystitis. 3. 6 x 5.1 cm right penoscrotal hypodense collection, concerning for abscess. /[place] DICTATED BY: ALICE LEARY Jr., MD DATE: 12/15/241458 ELECTRONICALLY SIGNED BY: ALICE LEARY Jr., MD DATE: 12/15/241458 PATIENT: ASHA SUERO MR#: [id number] : 1975 SEX: M AGE: 49 LOCATION: EDH ORDER 1036 STATUS: REG ER REPORT#: [id number] SERVICE 1032 REASON: SEPSIS ORDERING PHYSICIAN: NYLA MORALES PROCEDURE: CXR1VW - CHEST 1VW EXAM: CR Chest, 1 View. CLINICAL HISTORY: SEPSIS COMPARISON: None provided. FINDINGS: LUNGS: There is no mass, infiltrate, or acute pulmonary abnormality. Mild bibasilar atelectasis. PLEURAL SPACES: No pleural effusion or pneumothorax. MEDIASTINUM: The cardiomediastinal silhouette is within normal limits. BONES: No acute osseous abnormality. IMPRESSION: No acute cardiopulmonary pathology is evident. /[place] DICTATED BY: ALICE LEARY Jr., MD DATE: 12/15/24 134 ELECTRONICALLY SIGNED BY: ALICE LEARY Jr., MD DATE: 12/15/24 134 PATIENT: ASHA SUERO MR#: [id number] : 1975 SEX: M AGE: 49 LOCATION: [facility] ORDER 1015 STATUS: REG ER REPORT#: [id number] SERVICE 1013 REASON: TESTICULAR PAIN/SWELLING ORDERING PHYSICIAN: NYLA MORALES PROCEDURE: SCROTUM - US SCROTUM & CONTENTS ADDENDUM REPORT ADDENDUM: Results were shared by telephone at 13:33 pm on 12-15-24 and acknowledged by Nyla Ordonez /[place] EXAM: US Scrotum. CLINICAL HISTORY: TESTICULAR PAIN/SWELLING TECHNIQUE: Real-time ultrasound of the scrotum with color Doppler and image documentation. COMPARISON: Study dated 07/29. FINDINGS: RIGHT TESTICLE: Normal in size (3.3 cm x 1.5 cm x 2.4 cm) and echogenicity, no abnormal mass. Mildly reduced Doppler flow. LEFT TESTICLE: Normal in size (3.6 cm x 1.4 cm x 2.1 cm) and echogenicity, no abnormal mass. Normal Doppler flow. EPIDIDYMIDES: Within normal limits in size and vascularity. A 3 x 3 x 3 mm cyst along the head of the right epididymis. SCROTUM: There is significant improvement of previously documented abscess measuring 2.5 x 2.2 cm along the right scrotal wall (6 mm). No hydrocele, varicocele seen. IMPRESSION: 1. Scrotal wall abscess along the right side, measuring 2.5 x 2.2 cm, showing significant improvement/reduction in size. 2. Mildly reduced blood flow to the right testicle. Clinical correlation is advised for possible intermittent right testicular torsion. /[place] DICTATED BY: ALICE LEARY Jr., MD DATE: 12/15/24 1339 ELECTRONICALLY SIGNED BY: DATE: EXAM: US Scrotum. CLINICAL HISTORY: TESTICULAR PAIN/SWELLING TECHNIQUE: Real-time ultrasound of the scrotum with color Doppler and image documentation. COMPARISON: Study dated 07/29. FINDINGS: RIGHT TESTICLE: Normal in size (3.3 cm x 1.5 cm x 2.4 cm) and echogenicity, no abnormal mass. Mildly reduced Doppler flow. LEFT TESTICLE: Normal in size (3.6 cm x 1.4 cm x 2.1 cm) and echogenicity, no abnormal mass. Normal Doppler flow. EPIDIDYMIDES: Within normal limits in size and vascularity. A 3 x 3 x 3 mm cyst along the head of the right epididymis. SCROTUM: There is significant improvement of previously documented abscess measuring 2.5 x 2.2 cm along the right scrotal wall (6 mm). No hydrocele, varicocele seen. IMPRESSION: 1. Scrotal wall abscess along the right side, measuring 2.5 x 2.2 cm, showing significant improvement/reduction in size. 2. Mildly reduced blood flow to the right testicle. Clinical correlation is advised for possible intermittent right testicular torsion. /[place] DICTATED BY: ALICE LEARY Jr., MD DATE: 12/15/24 1324 ELECTRONICALLY SIGNED BY: ALICE LEARY Jr., MD DATE: 12/15/24 1324 ASSESSMENT: Acute on chronic renal failure Nephrotic syndrome Anemia Severe bilateral hydronephrosis with pyelonephritis Sepsis Progressive scrotal cellulitis with developing right hemiscrotum abscess Severe complicated urinary tract infection Urinary retention S/p Thomas catheter Electrolyte derangement Coronary artery disease Uncontrolled Diabetes mellitus type 2 Hyperlipidemia Hypertension PAD S/p left AKA Severe protein calorie malnutrition Obesity Debility Right eye blindness Decreased vision of left eye PLAN: Labs, diagnostic, radiologic exams reviewed and interpreted by myself and supervising physician. We have reviewed external records in detail Case management coordinating LTAC placement, pending insurance authorization Continue with the antibiotics as per ID Require close monitoring of renal function and electrolytes Order CBC, CMP, and electrolytes in am BiPAP as necessary, for respiratory distress Monitor blood pressure adjust medication doses as needed Avoid hypotensive episodes May use Dilaudid 0.5 mg IV every 6 hours as needed for severe pain Monitor blood sugars Strict intake, output, and daily weight should be monitored Please renally adjust medications Avoid nephrotoxic and nonsteroidal drugs Avoid contrast if possible Will continue to monitor renal function, anemia, electrolytes Treatment plan discussed with patient Questions were answered We have discussed with the other team physicians in detail about the care plan We will continue to monitor the patient closely ATTESTATION BY PHYSICIAN I have seen and examined the patient. I reviewed the documentation, medical decision making, and treatment plan as noted by the mid-level provider above. I agree with the findings and plan of care. KRUPA MANDEL MD, [facility] Dec 23, 2024 10:18
--- NOTE | 2024-12-23 10:33 | PN ---
[facility] PROGRESS NOTE Date of Service: Dec 23, 2024 Time of Service: 10:31 Attending doctor Tato SUBJECTIVE: 49-year-old male with history of poorly controlled type 2 diabetes mellitus, hypertension, hyperlipidemia, GERD, peripheral arterial disease, history of coronary artery disease with prior history of coronary stenting, peripheral arterial disease with prior history of angioplasty and stenting, morbid obesity, history of scrotal cellulitis with abscess requiring hospitalization in [facility] on 07/[place]24. Patient presented to the ER for further evaluation of progressive pain, swelling to the right side of the scrotum ongoing for the past three days. Pain is moderate in intensity involving the right hemiscrotum. Patient reported having subjective fevers, chills as well feels. Reported having dysuria and suprapubic discomfort as well. Patient reported that he was previously hospitalized in [facility] on 07/2024 where he was found to have right epididymo-orchitis. Patient during his hospitalization needed incision and drainage with debridement of right perineal and Ischiorectal abscess tracking into the scrotum by Dr. Choudhury on 08/01/2024. During this hospitalization had urinary retention requiring Thomas catheter placement. Discharged to long-term acute care for further IV antibiotic therapy. Patient denies any active chest pain, nausea, vomiting, or significant abdominal pain. On presentation to the ER, patient was noted to be in urinary retention with Thomas catheter placement yielding about 400 mL of urine. Patient underwent testicular ultrasound which showed findings of right scrotal wall abscess and mildly reduced flow to the right testicle. Patient underwent CT abdomen pelvis without contrast which showed findings of severe bilateral hydronephrosis with pyelonephritis, cystitis, and 3.6 cm x 5.1 cm right penoscrotal hypodense collection concerning for abscess. Patient admitted for further treatment and management of sepsis with underlying UTI, scrotal wall cellulitis with abscess, acute kidney injury and severe hyperglycemia. Consultation with Urology requested. Patient started on broad-spectrum antibiotics. 12/16 patient remains admitted to the PCU, blood pressure 135/86, afebrile, saturating normal on room air, WBC 14.8, hemoglobin 10.3, hematocrit 32.5, platelet count of 424. Sodium 131, potassium 4.4, CO2 of 19, BUN of 79, creatinine 3.3, uric acid 10.6, phosphorus 5.0. Iron level at 15. Blood gas with an ABG showing a pH of 7.32, pCO2 38, bicarb 19.3. Blood cultures no growth after 24 hours. Urine culture [id number] CFU, identification and sensitivity in progress. Patient evaluated by urologist, they abscesses and spontaneously draining, but the patient is still going to need formal incision and drainage. Clinical exam did not reveal findings suggestive of torsion. There was scrotal wall thickening worse of the right side with cellulitis. Recommended IV antibiotics for now. I will request a stat ABG to assess metabolic status. Patient with low iron level, follow stool occult blood, if positive we will request GI consultation. Patient currently on ferrous sulfate 325 mg p.o. daily. Infectious Disease consultation requested, follow input and recommendation. Patient with creatinine of 3.3, nephrology input noted and appreciated. Patient is started on insulin glargine 20 units subcutaneously daily as well as insulin sliding scale, continue to follow endocrinology input and recommendation. Renal ultrasound will be ordered, discussed with the hardware supplies sales representative, if hydronephrosis we will request Urology consult. Follow up PSA level. During my visit patient comfortably in bed, alert oriented x3, no acute events overnight, results of renal function discussed with the patient and the at bedside. 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 Blood pressure 161/79, heart rate of 67, saturating 99% 2 L nasal cannula. CBC with a hemoglobin 11.0, hematocrit 34.7, WBC 12.4, platelet count 497. Sodium 132, potassium 5.1, BUN of 67, creatinine 2.3, (improving compared to yesterday) random glucose 430, total calcium 8.8, magnesium 2.0. Ammonia level less than 10. ABG showing a pH of 7.32, bicarb of 18.4. Renal ultrasound showed urinary bladder wall thickening consult for cystitis, previously bilateral moderate hydroureteronephrosis not visualized. CT head without contrast no acute intracranial abnormality, stable encephalomalacia in the bilateral inferior cerebellar hemispheres suggesting sequela of prior insult, no significant interval change. Ultrasound carotids no hemodynamically significant stenosis bilateral carotid or vertebral arteries. Continue the patient on broad-spectrum IV antibiotics, follow results of intraoperative cultures, continue to follow ID input recommendation, follow urology input and recommendation. Neurology consultation requested, we will follow input and recommendation. Patient upgraded to the ICU, continue close monitoring of the patient's mental status. Follow critical care input and recommendations. Renal function slowly improving, continue to monitor in a.m., continue to assess metabolic status with daily ABG, patient is started on sodium bicarbonate drip. Continue long-acting insulin with glargine 50 units subcutaneously daily as well as insulin sliding scale. A.m. labs At the time of my visit, patient is comfortably in bed, alert and oriented x3, results of CT head discussed with the patient, all questions answered, he denies dizziness, no headache, no chest pain, shortness shortness for breath, no nausea, no vomiting. No weakness to both upper or lower extremities, able to move four extremities well. Able to show me all his teeth without deviation of the mouth. not present in the room at the time of my visit. 12/18 patient remains admitted to the ICU, hemodynamically stable, BP 133/50, afebrile, saturating normal on room air, during my visit the patient is alert oriented x3, denies dizziness, no headache, no chest pain, shortness shortness for breath, no nausea, no vomiting, no focal neurological deficit noted, no slurry speech, able to move both upper and lower extremity. Hemoglobin 10.5, hematocrit 32.2, WBC of 11.2. Results of culture from scrotal abscess positive for Streptococcus agalactiae group B, urine culture positive for yeast. Echocardiogram done, the apical anterior lateral, inferolateral carrillo are severely hypokinetic, the apical inferior wall is thin, scarring and akinetic, LVEF 40%, indeterminate diastolic dysfunction, trace mitral regurgitation, no pericardial effusion. Neck MRA no significant stenosis appreciated. Patient will be downgraded to the PCU, continue broad-spectrum antibiotics, continue to follow urology and ID input and recommendations. 12/19 patient remains admitted to the PCU, BP 151/82, afebrile, saturating normal on room air. WBC 11.3, hemoglobin 10.5, hematocrit 31.9, with a platelet count of 564. BUN 55, creatinine 1.7. Scrotal abscess culture positive for Irina albicans, Streptococcus agalactiae group B and is species. Discharge plan discussed with case management, who is making arrangements for the patient to be discharged to LTAC. Urology input noted and appreciated, patient is status post incision and drainage of tip. José abscess extending towards the rectal region, possibility of the rectal fistula needs to be ruled out. We will request surgical consultation. Continue wound care, continue broad-spectrum antibiotics, continue to follow ID input recommendation, continue hemodialysis per Nephrology recommendations. At the time of my visit the patient is comfortably in bed, alert oriented x3, no focal neurological deficit, plan is to downgraded the patient to the medical floor. 12/20 patient downgraded from the PCU to the medical floor, remains hemodynamically stable, afebrile, saturating normal on room air. Discharge plan discussed again with case management, still pending insurance approval for the patient to be discharged to LTAC. Per urology recommendation, General surgery was contacted to evaluate for the possibility of rectal fistula, surgical input noted and appreciated, continue conservative management with the wound care for now. Endocrinology input noted and appreciated, continue long- acting as well as short-acting insulin, with the adjustments as needed. At the time of my visit patient comfortably in bed, alert oriented x3, no new focal neurological deficits, denied chest pain, shortness shortness for breath, no nausea, no vomiting, no abdominal pain. 12/21 patient remains admitted to the medical floor, status post excisional debridement of necrotic soft tissue from the perineum secondary to 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) Wound culture positive for Irina albicans, Streptococcus agalactiae group B an d yeast species. General surgery consultation requested per urology recommendation to evaluate for possible rectal fistula, per General surgery medical management for now with the antibiotics, can follow up as an outpatient. Case management consulted for discharge plan to [facility], pending acceptance. During my visit today he remains comfortably in bed, alert oriented x3, hemodynamically stable, no acute events overnight per discussion with the RN. He is getting broad-spectrum IV antibiotics. Wound VAC in place. 12/22 patient was seen by nurse practitioner and physician during rounding in room 416. Patient was already discharged to LTAC once insurance approved. Discharge medications were performed by provider. Case management working on disposition. During my visitation today patient is alert and oriented x3 hemodynamically stable. No acute over 90 Invanz as per RN. Patient continues to be on IV antibiotics as ordered by ID. All the labs and radiology was reviewed by QUALITY CONTROL MICROBIOLOGIST. Wound VAC in place. We will continue to monitor patient in the meantime. A.m. labs. 12/23 patient was seen by nurse practitioner and physician during rounding in room 416. Magnesium today is 1.4 and we will be replaced per protocol. We already have final urine culture and wound culture. Antibiotics as per ID. Patient is pending insurance approval to LTAC. Case management is working on the case. We will continue to monitor patient in the meantime. A.m. labs. REVIEW OF SYSTEMS CONSTITUTIONAL: fevers, chills and malaise NEUROLOGICAL: Denies headache, amaurosis fugax, motor weakness, sensory deficit, vertigo/spinning sensation, gait abnormalities, or tremors. ENT: No hearing loss, otalgia, otorrhea, rhinitis, rhinorrhea, hoarseness, or sore throat. CARDIOVASCULAR: Denies any exertional angina, dyspnea on exertion, orthopnea, paroxysmal nocturnal dyspnea, palpitations, life-threatening arrhythmias, c laudication. PULMONARY: Denies any shortness of breath, cough, phlegm/sputum, hemoptysis, pleuritic chest pain. SLEEP: Denies morning headaches, daytime somnolence or napping. Denies difficulty falling asleep, staying asleep, waking from sleep. Denies knowledge of snoring. GASTROINTESTINAL: Denies any type of dysphagia to either liquids or solids. Denies nausea, vomiting, pyrosis, early satiety, abdominal pain, diarrhea, cons tipation, or changes in stool consistency or caliber. Denies coffee-ground emesis, hematemesis, hematochezia, or melanotic stools. GENITOURINARY: redness, swelling and pain to the right side of the scrotum ENDOCRINOLOGIC: poorly controlled DM II with hyperglycemia HEMATOLOGIC: Denies thrombophilia/previous clots, or coagulopathy/bleeding disorders. ONCOLOGIC: Denies personal history of malignancy. DERMATOLOGIC: redness and swelling to the right richie-scrotum PSYCHIATRIC: Denies any suicidal or homicidal ideation. Denies hallucinations. PHYSICAL EXAM GENERAL APPEARANCE: The patient is awake, alert, and oriented, in no acute cardiopulmonary distress. NEUROLOGICAL: Cranial nerves II-XII grossly intact. Motor is 5/5 in bilateral upper and lower extremities proximal to distal. No sensory deficits. HEENT: Face is symmetric. Pupils are equal and reactive. Extraocular movements are intact. NECK: Supple. No JVD. No thyromegaly. No submental, submandibular, pre- /postauricular, occipital or supraclavicular lymphadenopathy. CHEST: Normal chest expansion. No Telemetry. LUNGS: Absence of any rales, rhonchi or any wheezing. CARDIOVASCULAR: Regular. S1 and S2 normal. No appreciable rubs, murmurs or gallops. ABDOMEN: Soft, nontender, and nondistended. There is no rebound, voluntary guarding, or rigidity. : no abnormalities EXTREMITIES: No significant swelling noted Vital Signs (last 8hr) Date Time Temp Pulse Resp B/P (MAP) Pulse Ox O2 Delivery O2 Flow Rate FiO2 12/23/24 08:37 97.9 76 18 154/90 98 Room Air 12/23/24 04:00 98.4 75 18 152/93 93 Room Air LABS: Laboratory: Test 12/23/24 05:43 12/23/24 04:36 12/22/24 11:50 Range/Units Whole Blood Glucose 189 H 70-110 MG/DL White Blood Count 9.2 4.8-10.8 K/uL Red Blood Count 4.28 L 4.50-6.20 MIL/uL Hemoglobin 10.7 L 14.0-18.0 g/dL Hematocrit 35.1 L 42-54 % Mean Corpuscular Volume 82.0 79-99 fL Mean Corpuscular Hemoglobin 25.0 L 27.0-33.0 pg Mean Corpuscular Hemoglobin Concent 30.5 L 32.0-36.0 g/dL Red Cell Distribution Width 13.9 11.0-15.5 % Platelet Count 600 H 130-400 K/uL Mean Platelet Volume 8.9 7.5-10.5 fL Immature Granulocyte % (Auto) 1.0 0-1 % Neutrophils (%) (Auto) 63.3 40.0-77.0 % Lymphocytes (%) (Auto) 27.1 21.0-51.0 % Monocytes (%) (Auto) 6.5 3.0-13.0 % Eosinophils (%) (Auto) 1.7 0.0-8.0 % Basophils (%) (Auto) 0.4 0.0-5.0 % Neutrophils # (Auto) 5.8 1.8-7.7 K/uL Lymphocytes # (Auto) 2.5 1.0-4.8 K/uL Monocytes # (Auto) 0.6 0.1-1.0 K/uL Eosinophils # (Auto) 0.16 0.00-0.70 K/uL Basophils # (Auto) 0.04 0.00-0.20 K/uL Absolute Immature Granulocyte (auto 0.09 0-1 K/uL Nucleated Red Blood Cells 0.0 0.0-0.19 % Red Blood Cell Morphology See comments Sodium Level 139 136-145 mmol/L Potassium Level 4.4 3.5-5.1 mmol/L Chloride Level 103 101-111 mmol/L Carbon Dioxide Level 31 21-32 mmol/L Blood Urea Nitrogen 29 H 7-18 mg/dL Creatinine 1.3 0.5-1.3 mg/dL Glomerular Filtration Rate Calc 68 >90 mL/min Random Glucose 214 H 70-105 mg/dL Total Calcium 8.4 L 8.5-10.1 mg/dL Phosphorus Level 3.8 2.5-4.9 mg/dL Magnesium Level 1.40 L 1.80-2.40 mg/dL Total Bilirubin 0.2 0.2-1.0 mg/dL Aspartate Amino Transf (AST/SGOT) 20 10-37 U/L Alanine Aminotransferase (ALT/SGPT) 26 12-78 U/L Alkaline Phosphatase 207 H 50-136 U/L Total Protein 7.4 6.0-8.3 g/dL Albumin 1.7 L 3.5-5.0 g/dL Bedside Glucose Comment Notified Nurse Current Medications Medications (Trade) Dose Ordered Sig/Gaby Route PRN Reason Start Time Stop Time Status Last Admin Dose Admin Acetaminophen (acetaMINOPHEN) 1,000 mg ONCE IVPB 12/17/24 17:00 12/18/24 18:10 DC 12/17/24 17:11 1,000 MG Aspirin (Aspirin 81mg Ec Tab) 81 mg DAILY PO 12/18/24 09:00 01/17/25 08:59 12/23/24 08:31 81 MG Atorvastatin Calcium (LIPItor 40MG) 40 mg HS PO 12/15/24 21:00 01/14/25 20:59 12/22/24 19:23 40 MG Dextrose (D50w) 50 ml AD PRN IV HYPOGLYCEMIA PROTOCOL 12/15/24 13:30 01/14/25 13:29 Docusate Sodium (COLace LIQUID 100MG/10ML) 50 mg DAILY PO 12/21/24 11:00 01/20/25 10:59 12/23/24 08:31 50 MG Famotidine (Pepcid 20mg Vial) 20 mg DAILY IV 12/16/24 09:00 12/17/24 10:49 DC 12/17/24 08:53 20 MG Ferrous Sulfate (Ferrous Sulfate) 325 mg DAILY PO 12/16/24 09:00 01/15/25 08:59 12/23/24 08:31 325 MG Fluconazole/ Sodium Chloride 100 ml @ 100 mls/hr DAILY IV 12/21/24 09:00 01/20/25 08:59 12/23/24 08:30 100 MLS/HR Glucagon (Glucagon 1mg Kit) 1 mg AD PRN IM HYPOGLYCEMIA PROTOCOL 12/15/24 13:30 01/14/25 13:29 Heparin Sodium (Porcine) (HEParin 5,000 UNIT VIAL) 5,000 unit BID SQ 12/17/24 11:00 01/16/25 10:59 12/23/24 08:45 5,000 UNIT Home Med (Home Medication) (Sennosides/ Docusate Sodium (Colace 2-i... DAILY PO 12/16/24 09:00 12/21/24 10:37 DC Hydralazine HCl (APRESOLine 20MG INJ) 5 mg Q6H PRN IV ADMINISTER FOR SBP > 160 12/15/24 14:30 01/14/25 14:29 Hydromorphone HCl (DiLAUDid 0.5MG INJ) 0.2 mg Q4H PRN IVP SEVERE PAIN (7-10) 12/21/24 12:21 12/26/24 12:20 12/22/24 23:02 0.2 MG Hydromorphone HCl (DiLAUDid 0.5MG INJ) 0.2 mg Q6H PRN IVP SEVERE PAIN (7-10) 12/15/24 13:30 12/18/24 09:00 DC 12/17/24 04:34 0.2 MG Insulin Glargine (LANtus 100 UNITS/ML 10 ML VIAL) 20 units DAILY SQ 12/16/24 09:00 12/17/24 07:32 DC Insulin Glargine (LANtus 100 UNITS/ML 10 ML VIAL) 20 units HS SQ 12/15/24 21:00 12/16/24 06:19 DC 12/15/24 21:05 20 UNITS Insulin Glargine (LANtus 100 UNITS/ML 10 ML VIAL) 25 units HS SQ 12/15/24 21:00 12/15/24 18:52 DC Insulin Glargine (LANtus 100 UNITS/ML 10 ML VIAL) 50 units DAILY SQ 12/17/24 09:00 01/16/25 08:59 12/23/24 08:46 50 UNITS Insulin Human Regular (humuLIN R 100 UNIT/ML 3ML) 8 unit TIDAC SQ 12/16/24 07:30 12/17/24 07:32 DC 12/17/24 06:59 8 UNIT Insulin Human Regular (humuLIN R 100 UNIT/ML 3ML) 15 unit TIDAC SQ 12/17/24 07:30 12/20/24 21:39 DC 12/20/24 16:01 15 UNIT Insulin Human Regular (humuLIN R 100 UNIT/ML 3ML) 16 unit TIDAC SQ 12/21/24 07:30 01/20/25 07:29 12/23/24 06:55 16 UNIT Insulin Human Regular (humuLIN R 100 UNIT/ML 3ML) INSULIN SLIDING SCAL... ACHS SQ 12/15/24 16:30 12/16/24 06:19 DC 12/15/24 21:03 5 UNIT Insulin Human Regular (humuLIN R 100 UNIT/ML 3ML) INSULIN SLIDING SCAL... ACHS SQ 12/16/24 07:30 01/15/25 07:29 12/23/24 06:54 2 UNIT Leptospermum Honey (Cloudwise) 1 APPLICATION ONCE STAT TP 12/19/24 16:04 12/19/24 16:06 DC 12/19/24 16:35 1 APPL Leptospermum Honey (Medihoney) 1 APPL QMOWEFR TP 12/21/24 09:00 01/20/25 08:59 12/21/24 09:43 1 APPL Linezolid 300 ml @ 150 mls/hr Q12H IV 12/15/24 21:00 12/17/24 19:54 DC 12/17/24 08:53 150 MLS/HR Linezolid 300 ml @ 150 mls/hr Q12H IV 12/17/24 21:00 12/19/24 20:59 DC 12/19/24 10:01 150 MLS/HR Magnesium Sulfate 50 ml @ 0 mls/hr PROTOCOL IV 12/20/24 10:00 01/19/25 09:59 12/23/24 05:47 25 MLS/HR Magnesium Sulfate 50 ml @ 0 mls/hr PROTOCOL IV 12/21/24 14:30 12/21/24 14:25 DC Magnesium Sulfate 50 ml @ 0 mls/hr PROTOCOL PRN IV MAGNESIUM PROTOCOL 12/18/24 09:30 12/20/24 09:53 DC 12/18/24 10:42 25 MLS/HR Meropenem (Merrem 1gm) 1 gm BID@0600,1800 IV 12/22/24 18:00 01/01/25 17:59 12/23/24 05:46 1 GM Meropenem (Merrem 1gm) 1 gm Q12H IVPB 12/15/24 16:00 12/17/24 19:54 DC 12/17/24 17:11 1 GM Meropenem (Merrem 1gm) 1 gm Q12H IVPB 12/18/24 04:00 12/20/24 23:00 DC 12/20/24 16:01 1 GM Mupirocin (Bactroban Oint) 1 APPL BID TP 12/21/24 12:30 01/20/25 12:29 12/22/24 19:40 1 APPL Naloxone HCl (NARcan HCL 1 MG/ ML 2ML SYG) 2 mg ONCE IV 12/17/24 11:00 12/17/24 10:36 DC Ondansetron HCl (zoFRAN 4MG INJ) 4 mg Q6H6 PRN IVP NAUSEA/VOMITING 12/21/24 02:30 01/20/25 02:29 12/22/24 23:02 4 MG Pantoprazole Sodium (PROTonix 40MG INJ) 40 mg DAILY IVP 12/18/24 09:00 01/17/25 08:59 12/22/24 08:47 40 MG Pharmacy Profile Note (Pharmacy Communication) 1 each ONCE MISC 12/15/24 13:30 12/15/24 14:18 DC Pharmacy Profile Note (Pharmacy Communication) 1 each ONCE MISC 12/22/24 18:00 12/22/24 18:01 DC Sennosides (Senna) 1 tab DAILY PO 12/21/24 11:00 01/20/25 10:59 12/23/24 08:31 1 TAB Sodium Bicarbonate 150 meq/Dextrose 1,150 ml @ 50 mls/hr Q23H IVP 12/17/24 11:00 12/18/24 11:36 DC 12/18/24 08:25 50 MLS/HR Sodium Bicarbonate (Sodium Bicarbonate) 650 mg QID PO 12/16/24 13:00 01/15/25 12:59 12/23/24 08:31 650 MG Sodium Chloride 1,000 ml @ 75 mls/hr [id number] IV 12/15/24 13:30 12/17/24 10:49 DC 12/17/24 01:40 75 MLS/HR Tamsulosin HCl (FloMAX) 0.4 mg DAILY PO 12/16/24 09:00 01/15/25 08:59 12/23/24 08:31 0.4 MG Vancomycin HCl 250 ml @ 125 mls/hr Q48H IV 12/17/24 11:00 12/15/24 13:19 DC Vancomycin HCl (Vancomycin Protocol) 1 each AD IV 12/15/24 11:00 12/15/24 23:52 DC Vitamin B Complex/ Vit C/Folic Acid (Nephrovite Tablet) 1 cap DAILY PO 12/16/24 09:00 01/15/25 08:59 12/23/24 08:31 1 CAP DIAGNOSTICS / RADIOLOGY: [ ] FINAL DIAGNOSIS Sepsis secondary to complicated urinary tract infection and scrotal cellulitis with abscess, POA Progressive scrotal cellulitis with developing right hemiscrotal abscess, POA status post excisional debridement of necrotic soft tissue from the perineum secondary to 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) Wound culture positive for Irina albicans, Streptococcus agalactiae group B and yeast species Severe complicated urinary tract infection, POA Urinary retention status post Thomas catheter placement, POA Bilateral hydronephrosis, POA Acute kidney injury with underlying history of chronic kidney disease, POA Severe nonketotic hyperglycemia with poorly controlled type 2 diabetes mellitus, POA History of Farxiga use as outpatient, POA Hypertension, POA History of dual antiplatelet therapy with aspirin and Plavix as outpatient, POA History of coronary artery disease with prior history of coronary intervention and stenting, POA History of peripheral arterial disease with history of lower extremity ang ioplasty and stenting, POA History of TIA, POA Hypertension, POA Hyperlipidemia, POA Debility, POA Right eye blindness, POA Decreased vision of left eye, POA History of iron deficiency anemia, POA History of hospitalization in [facility] for right epididymo-orchitis with abscess requiring surgical drainage,07/2024, POA ATTESTATION BY PHYSICIAN I have seen and examined the patient. I reviewed the documentation, medical decision making, and treatment plan as noted by the mid-level provider above. I agree with the findings and plan of care. ZARI Washington MD [employer] Dec 23, 2024 10:33
--- NOTE | 2024-12-23 10:59 | NUR ---
cm note spoke to Blanquita chacon at [facility] and states pt is still pending approval.
--- NOTE | 2024-12-23 16:04 | PN ---
INFECTIOUS DISEASE PROGRESS NOTE Date of Service: Dec 23, 2024 SUBJECTIVE: Patient was seen and examined at bedside in room 416. Patient is awake, alert and oriented x3. No fever reported this morning and the WBC continues trending down and is 9.2 today. Low magnesium level being replaced. Patient is s/p drainage and excisional debridement of the scrotal wall abscess on 12/16/2024 and continues with Wound VAC in placed. Continues on fluconazole and Meropenem. No reports of nausea or vomiting. Pending insurance approval to [facility]. PHYSICAL EXAM EYES: Anicteric. Pupils equal and reactive. HENT: No oral thrush seen, moist Oral mucosa. NECK: Supple, no JVD or thyromegaly. LUNGS: Good air entry. No rales, no rhonchi. CARDIOVASCULAR: S1, S2 regular. No murmur heard. ABDOMEN: Soft, non tender, bowel sounds present, no organomegaly. CENTRAL NERVOUS SYSTEM: Awake, alert, oriented x 3. SKIN: No rashes, no swelling. LYMPHATICS: No peripheral lymphadenopathy MUSCULOSKELETAL: No joint swelling, erythema or tenderness. EXTREMITIES: No cyanosis or clubbing. BACK: No deformity, no pressure ulcer. GENITOURINARY: No dysuria or hematuria. Thomas catheter. Scrotal abscess, s/p drainage and debridement. Wound VAC in placed. Vital Sign (Last 12 Hours) 12/23/24 12/23/24 12/23/24 08:00 08:37 11:09 Temp 97.9 97.9 Pulse 76 72 Resp 18 16 B/P (MAP) 154/90 147/85 Pulse Ox 98 98 98 O2 Delivery Room Air* Room Air Room Air O2 Flow Rate 0 FiO2 21 Intake & Output (last 24hrs) 12/22/24 12/22/24 12/23/24 15:00 23:00 07:00 Intake Total 500 ml Output Total 2000 ml 2400 ml Balance -1500 ml -2400 ml LABS: Laboratory: Test 12/23/24 15:32 12/23/24 04:36 12/22/24 11:50 Range/Units Whole Blood Glucose 123 H 70-110 MG/DL White Blood Count 9.2 4.8-10.8 K/uL Red Blood Count 4.28 L 4.50-6.20 MIL/uL Hemoglobin 10.7 L 14.0-18.0 g/dL Hematocrit 35.1 L 42-54 % Mean Corpuscular Volume 82.0 79-99 fL Mean Corpuscular Hemoglobin 25.0 L 27.0-33.0 pg Mean Corpuscular Hemoglobin Concent 30.5 L 32.0-36.0 g/dL Red Cell Distribution Width 13.9 11.0-15.5 % Platelet Count 600 H 130-400 K/uL Mean Platelet Volume 8.9 7.5-10.5 fL Immature Granulocyte % (Auto) 1.0 0-1 % Neutrophils (%) (Auto) 63.3 40.0-77.0 % Lymphocytes (%) (Auto) 27.1 21.0-51.0 % Monocytes (%) (Auto) 6.5 3.0-13.0 % Eosinophils (%) (Auto) 1.7 0.0-8.0 % Basophils (%) (Auto) 0.4 0.0-5.0 % Neutrophils # (Auto) 5.8 1.8-7.7 K/uL Lymphocytes # (Auto) 2.5 1.0-4.8 K/uL Monocytes # (Auto) 0.6 0.1-1.0 K/uL Eosinophils # (Auto) 0.16 0.00-0.70 K/uL Basophils # (Auto) 0.04 0.00-0.20 K/uL Absolute Immature Granulocyte (auto 0.09 0-1 K/uL Nucleated Red Blood Cells 0.0 0.0-0.19 % Red Blood Cell Morphology See comments Sodium Level 139 136-145 mmol/L Potassium Level 4.4 3.5-5.1 mmol/L Chloride Level 103 101-111 mmol/L Carbon Dioxide Level 31 21-32 mmol/L Blood Urea Nitrogen 29 H 7-18 mg/dL Creatinine 1.3 0.5-1.3 mg/dL Glomerular Filtration Rate Calc 68 >90 mL/min Random Glucose 214 H 70-105 mg/dL Total Calcium 8.4 L 8.5-10.1 mg/dL Phosphorus Level 3.8 2.5-4.9 mg/dL Magnesium Level 1.40 L 1.80-2.40 mg/dL Total Bilirubin 0.2 0.2-1.0 mg/dL Aspartate Amino Transf (AST/SGOT) 20 10-37 U/L Alanine Aminotransferase (ALT/SGPT) 26 12-78 U/L Alkaline Phosphatase 207 H 50-136 U/L Total Protein 7.4 6.0-8.3 g/dL Albumin 1.7 L 3.5-5.0 g/dL Bedside Glucose Comment Notified Nurse ASSESSMENT: Perineal abscess, s/p drainage and excisional debridement on 12/16/2024 Sepsis, resolving. Polymicrobial infection. Urinary tract infection. Leukocytosis, resolving. Acute renal failure, resolving. Hydronephrosis. Diabetes mellitus. Recent right Scrotal wall abscess with I&D and debridement on 08/01/2024. PLAN: Continue fluconazole. Continue Meropenem. Continue GI prophylaxis. Continue pain management. Continue wound care Continue antidiabetics. Avoid nephrotoxic medications. Pending insurance authorization to [facility]. This case was reviewed and discussed with my supervising physician and the above assessment and plan was formulated and agreed upon. ATTESTATION BY PHYSICIAN I have seen and examined the patient. I reviewed the documentation, medical decision making, and treatment plan as noted by the mid-level provider above. I agree with the findings and plan of care. GRANT SUMMERS MD, MIRTA L [facility] Dec 23, 2024 16:04
--- NOTE | 2024-12-23 21:10 | PN ---
Endocrinology progress note DOS: 12/23/24 subjective: hyperglycemia is improving now s/p surgery for deep perineal abscess.s/p wound vac. glucose are improving. Home diabetic regimen: lantus 50 units daily, lispro insulin 25 units tid before meals, janumet mg bid Hba1c 14% PAST SURGICAL HISTORY: [Left AKA, right leg stents x4, cardiac stent x3 , hx of Incision and drainage with debridement of right perineal and ischiorectal abscess tracking into the scrotum by Dr. Choudhury on 07/2024 PAST SOCIAL HISTORY: [Patient lives with his . Patient denies alcohol tobacco and recreational drug use . Patient states he used to smoke cigarette for 17 years two packs per day and quit two years ago] Allergies: Morphine causes headache Home medications: patient reports being on [id number] mg daily, [id number] mg daily, Lantus 50 units daily, insulin lispro,5 units b.i.d. p.c., losartan 50 mg daily, Colace daily, Janumet twice daily, Flomax 0.4 mg daily, clotrimazole cream twice daily, ferrous mg daily, Lipitor 40 mg daily Coded Allergies: morphine (Unverified Allergy, Intermediate, HALLUCINATIONS, 02/13/23) DIAGNOSTICS / RADIOLOGY: SERVICE 1040 REASON: urinary retention, testicular swelling wo per provider ORDERING PHYSICIAN: NYLA MORALES PROCEDURE: ABD PEL WO - CT ABDOMEN/PELVIS W/O CONTRAST EXAM: CT Abdomen and Pelvis Without IV contrast CLINICAL HISTORY: urinary retention, testicular swelling wo per provider TECHNIQUE: Axial computed tomography images of the abdomen and pelvis without intravenous contrast. CONTRAST: No IV contrast. COMPARISON: [facility] dated 02/08/23 FINDINGS: LUNG BASES: There are atelectatic bands within the bilateral lower lobes. LIVER: Unremarkable. GALLBLADDER AND BILE DUCTS: Post cholecystectomy status with surgical clips in situ. PANCREAS: Unremarkable. SPLEEN: Unremarkable. ADRENAL GLANDS: Unremarkable. KIDNEYS, URETERS, AND BLADDER: There is marked concentric bladder wall thickening, more pronounced posteriorly, with perivesicular fat stranding likely reflecting cystitis. There is reflux within the bilateral ureters resulting in severe bilateral hydronephrosis and also bilateral perinephric fat stranding reflecting pyelonephritis. There is no radiopaque calculus appreciated. STOMACH AND BOWEL: Unremarkable appearance of the stomach and bowel. No evidence of bowel obstruction. No evidence suggesting enteritis or colitis. APPENDIX: No evidence of acute appendicitis on CT examination. PERITONEUM: Small 7 mm fat-containing umbilical hernia. LYMPH NODES: No lymphadenopathy is evident. REPRODUCTIVE: A well-defined hypodense collection along the right penoscrotal region, measuring 6 x 5.1 cm, concerning for abscess. VASCULATURE: Atherosclerotic changes of the abdominal aorta. BONES: No aggressive appearing osseous lesion. No acute osseous pathology evident. IMPRESSION: 1. Severe bilateral hydronephrosis with pyelonephritis and perinephric fat stranding. 2. Marked bladder wall thickening with perivesicular fat stranding, compatible with cystitis. 3. 6 x 5.1 cm right penoscrotal hypodense collection, concerning for abscess. /[place] DICTATED BY: ALICE LEARY Jr., MD DATE: 12/15/241458 ELECTRONICALLY SIGNED BY: ALICE LEARY Jr., MD DATE: 12/15/241458 ELECTRONICALLY SIGNED BY: DATE: EXAM: US Scrotum. CLINICAL HISTORY: TESTICULAR PAIN/SWELLING TECHNIQUE: Real-time ultrasound of the scrotum with color Doppler and image documentation. COMPARISON: Study dated 07/29. FINDINGS: RIGHT TESTICLE: Normal in size (3.3 cm x 1.5 cm x 2.4 cm) and echogenicity, no abnormal mass. Mildly reduced Doppler flow. LEFT TESTICLE: Normal in size (3.6 cm x 1.4 cm x 2.1 cm) and echogenicity, no abnormal mass. Normal Doppler flow. EPIDIDYMIDES: Within normal limits in size and vascularity. A 3 x 3 x 3 mm cyst along the head of the right epididymis. SCROTUM: There is significant improvement of previously documented abscess measuring 2.5 x 2.2 cm along the right scrotal wall (6 mm). No hydrocele, varicocele seen. IMPRESSION: 1. Scrotal wall abscess along the right side, measuring 2.5 x 2.2 cm, showing significant improvement/reduction in size. 2. Mildly reduced blood flow to the right testicle. Clinical correlation is advised for possible intermittent right testicular torsion. /[place] DICTATED BY: ALICE LEARY Jr., MD DATE: 12/15/241323 ELECTRONICALLY SIGNED BY: ALICE LEARY Jr., MD DATE: 12/15/241323 ASSESSMENT: uncontrolled DM-2 and hyperglycemia insulin adjusted and glucose are improving. now s/p surgery for deep perineal abscess. .s/p wound vac. glucose are improving. Home diabetic regimen: lantus 50 units daily, lispro insulin 25 units tid before meals, janumet mg bid Hba1c 14% Sepsis secondary to complicated urinary tract infection and scrotal cellulitis with abscess, POA s/p surgery Progressive scrotal cellulitis with developing right hemiscrotal abscess, POA Severe complicated urinary tract infection, POA Urinary retention status post Thomas catheter placement, POA Bilateral hydronephrosis, POA Acute kidney injury with underlying history of chronic kidney disease, POA History of Farxiga use as outpatient, POA but off due to hx of perineal abscess Hypertension, POA History of dual antiplatelet therapy with aspirin and Plavix as outpatient, POA History of coronary artery disease with prior history of coronary intervention and stenting, POA History of peripheral arterial disease with history of lower extremity angioplasty and stenting, POA History of TIA, POA Hypertension, POA Hyperlipidemia, POA Debility, POA Right eye blindness, POA Decreased vision of left eye, POA History of iron deficiency anemia, POA [place] [facility] [place]ch[place] with abscess requiring surgical drainage,07/2024, POA PLAN: continue Lantus 50 units daily and adjust for fasting glucose. continue Regular insulin 17 units daily and adjust for post-prandial glucose. Continue medium dose sliding scale insulin. Monitor glucose q x 6 hourly. Continue carb consistent diet. Keep glucose less than 180 mg/dl. Vitals/Labs Vital Signs Date Time Temp Pulse Resp B/P (MAP) Pulse Ox O2 Delivery O2 Flow Rate FiO2 12/23/24 20:00 98.4 80 20 138/82 95 Room Air 12/23/24 08:00 0 21 Laboratory Tests 12/23/24 04:36 Medications Current Medications Acetaminophen 1,000 mg ONCE ONCE PO Last administered on 12/15/24at 11:13; Start 12/15/24 at 11:00; Stop 12/15/24 at 11:01; Status DC Sodium Chloride 1,000 ml @ 0 mls/hr ONCE ONCE IV Last administered on 12/15/24at 11:33; Start 12/15/24 at 11:00; Stop 12/15/24 at 11:01; Status DC Vancomycin HCl 1 each AD IV; Start 12/15/24 at 11:00; Stop 12/15/24 at 23:52; Status DC Cefepime HCl 1 gm ONCE ONCE IVPB Last administered on 12/15/24at 11:37; Start 12/15/24 at 11:00; Stop 12/15/24 at 11:01; Status DC Vancomycin HCl 250 ml @ 125 mls/hr ONCE ONCE IV Last administered on 12/15/24at 11:51; Start 12/15/24 at 11:00; Stop 12/15/24 at 12:59; Status DC Insulin Human Regular 10 unit ONCE ONCE IV Last administered on 12/15/24at 11:48; Start 12/15/24 at 11:30; Stop 12/15/24 at 11:31; Status DC Vancomycin HCl 250 ml @ 125 mls/hr Q48H IV; Start 12/17/24 at 11:00; Stop 12/15/24 at 13:19; Status DC Insulin Human Regular INSULIN SLIDING SCAL... ACHS SQ Last administered on 12/15/24at 21:03; Start 12/15/24 at 16:30; Stop 12/16/24 at 06:19; Status DC Dextrose 50 ml AD PRN IV; Start 12/15/24 at 13:30; Stop 01/14/25 at 13:29 Glucagon 1 mg AD PRN IM; Start 12/15/24 at 13:30; Stop 01/14/25 at 13:29 Pharmacy Profile Note 1 each ONCE MISC; Start 12/15/24 at 13:30; Stop 12/15/24 at 14:18; Status DC Atorvastatin Calcium 40 mg HS PO Last administered on 12/23/24at 20:38; Start 12/15/24 at 21:00; Stop 01/14/25 at 20:59 Tamsulosin HCl 0.4 mg DAILY PO Last administered on 12/23/24at 08:31; Start 12/16/24 at 09:00; Stop 01/15/25 at 08:59 Ferrous Sulfate 325 mg DAILY PO Last administered on 12/23/24at 08:31; Start 12/16/24 at 09:00; Stop 01/15/25 at 08:59 Home Med (Sennosides/ Docusate Sodium (Colace 2-i... DAILY PO; Start 12/16/24 at 09:00; Stop 12/21/24 at 10:37; Status DC Sodium Chloride 1,000 ml @ 75 mls/hr [id number] IV Last administered on 12/17/24at 01:40; Start 12/15/24 at 13:30; Stop 12/17/24 at 10:49; Status DC Hydromorphone HCl 0.2 mg Q6H PRN IVP Last administered on 12/17/24at 04:34; Start 12/15/24 at 13:30; Stop 12/18/24 at 09:00; Status DC Famotidine 20 mg DAILY IV Last administered on 12/17/24at 08:53; Start 12/16/24 at 09:00; Stop 12/17/24 at 10:49; Status DC Sodium Chloride 500 ml @ 0 mls/hr ONCE ONCE IV Last administered on 12/15/24at 15:13; Start 12/15/24 at 14:30; Stop 12/15/24 at 14:31; Status DC Hydralazine HCl 5 mg Q6H PRN IV; Start 12/15/24 at 14:30; Stop 01/14/25 at 14:29 Meropenem 1 gm Q12H IVPB Last administered on 12/17/24at 17:11; Start 12/15/24 at 16:00; Stop 12/17/24 at 19:54; Status DC Linezolid 300 ml @ 150 mls/hr Q12H IV Last administered on 12/17/24at 08:53; Start 12/15/24 at 21:00; Stop 12/17/24 at 19:54; Status DC Vitamin B Complex/ Vit C/Folic Acid 1 cap DAILY PO Last administered on 12/23/24at 08:31; Start 12/16/24 at 09:00; Stop 01/15/25 at 08:59 Insulin Glargine 25 units HS SQ; Start 12/15/24 at 21:00; Stop 12/15/24 at 18:52; Status DC Insulin Glargine 20 units HS SQ Last administered on 12/15/24at 21:05; Start 12/15/24 at 21:00; Stop 12/16/24 at 06:19; Status DC Insulin Glargine 20 units DAILY SQ; Start 12/16/24 at 09:00; Stop 12/17/24 at 07:32; Status DC Insulin Human Regular 8 unit TIDAC SQ Last administered on 12/17/24at 06:59; Start 12/16/24 at 07:30; Stop 12/17/24 at 07:32; Status DC Insulin Human Regular INSULIN SLIDING SCAL... ACHS SQ Last administered on 12/23/24at 20:42; Start 12/16/24 at 07:30; Stop 01/15/25 at 07:29 Sodium Bicarbonate 650 mg QID PO Last administered on 12/23/24at 20:38; Start 12/16/24 at 13:00; Stop 01/15/25 at 12:59 Sodium Bicarbonate 50 meq ONCE ONCE IV Last administered on 12/16/24at 12:34; Start 12/16/24 at 12:00; Stop 12/16/24 at 12:05; Status DC Dexamethasone Sodium Phosphate 4 mg STK-MED ONCE .ROUTE; Start 12/16/24 at 15:54; Stop 12/16/24 at 16:00; Status DC Lidocaine HCl 5 ml STK-MED ONCE .ROUTE; Start 12/16/24 at 15:54; Stop 12/16/24 at 16:00; Status DC Midazolam HCl 2 mg STK-MED ONCE .ROUTE; Start 12/16/24 at 15:55; Stop 12/16/24 at 16:00; Status DC Propofol 200 mg STK-MED ONCE IV; Start 12/16/24 at 15:55; Stop 12/16/24 at 16:00; Status DC Succinylcholine Chloride 200 mg STK-MED ONCE .ROUTE; Start 12/16/24 at 15:55; Stop 12/16/24 at 16:00; Status DC Ondansetron HCl 4 mg STK-MED ONCE .ROUTE; Start 12/16/24 at 15:55; Stop 12/16/24 at 16:00; Status DC Rocuronium [place] 50 mg STK-MED ONCE .ROUTE; Start 12/16/24 at 15:55; Stop 12/16/24 at 16:00; Status DC Fentanyl Citrate 100 mcg STK-MED ONCE .ROUTE; Start 12/16/24 at 15:55; Stop 12/16/24 at 16:00; Status DC Insulin Glargine 50 units DAILY SQ Last administered on 12/23/24at 08:46; Start 12/17/24 at 09:00; Stop 01/16/25 at 08:59 Insulin Human Regular 15 unit TIDAC SQ Last administered on 12/20/24at 16:01; Start 12/17/24 at 07:30; Stop 12/20/24 at 21:39; Status DC Naloxone HCl 2 mg ONCE IV; Start 12/17/24 at 11:00; Stop 12/17/24 at 10:36; Status DC Naloxone HCl 2 mg ONCE ONCE IV; Start 12/17/24 at 11:00; Stop 12/17/24 at 11:01; Status DC Heparin Sodium (Porcine) 5,000 unit BID SQ Last administered on 12/23/24at 20:38; Start 12/17/24 at 11:00; Stop 01/16/25 at 10:59 Pantoprazole Sodium 40 mg DAILY IVP Last administered on 12/23/24at 09:00; Start 12/18/24 at 09:00; Stop 01/17/25 at 08:59 Sodium Bicarbonate 150 meq/Dextrose 1,150 ml @ 50 mls/hr Q23H IVP Last administered on 12/18/24at 08:25; Start 12/17/24 at 11:00; Stop 12/18/24 at 11:36; Status DC Aspirin 81 mg DAILY PO Last administered on 12/23/24at 08:31; Start 12/18/24 at 09:00; Stop 01/17/25 at 08:59 Acetaminophen 1,000 mg ONCE IVPB Last administered on 12/17/24at 17:11; Start 12/17/24 at 17:00; Stop 12/18/24 at 18:10; Status DC Linezolid 300 ml @ 150 mls/hr Q12H IV Last administered on 12/19/24at 10:01; Start 12/17/24 at 21:00; Stop 12/19/24 at 20:59; Status DC Meropenem 1 gm Q12H IVPB Last administered on 12/20/24at 16:01; Start 12/18/24 at 04:00; Stop 12/20/24 at 23:00; Status DC Magnesium Sulfate 50 ml @ 0 mls/hr PROTOCOL PRN IV Last administered on 12/18/24at 10:42; Start 12/18/24 at 09:30; Stop 12/20/24 at 09:53; Status DC Leptospermum Honey 1 APPLICATION ONCE STAT TP Last administered on 12/19/24at 16:35; Start 12/19/24 at 16:04; Stop 12/19/24 at 16:06; Status DC Leptospermum Honey 1 APPL [id number] TP Last administered on 12/21/24at 09:43; Start 12/21/24 at 09:00; Stop 01/20/25 at 08:59 Fluconazole/ Sodium Chloride 100 ml @ 100 mls/hr DAILY IV Last administered on 12/23/24at 08:30; Start 12/21/24 at 09:00; Stop 01/20/25 at 08:59 Magnesium Sulfate 50 ml @ 0 mls/hr PROTOCOL IV Last administered on 12/23/24at 05:47; Start 12/20/24 at 10:00; Stop 01/19/25 at 09:59 Insulin Human Regular 16 unit TIDAC SQ Last administered on 12/23/24at 06:55; Start 12/21/24 at 07:30; Stop 01/20/25 at 07:29 Ondansetron HCl 4 mg Q6H6 PRN IVP Last administered on 12/22/24at 23:02; Start 12/21/24 at 02:30; Stop 01/20/25 at 02:29 Sennosides 1 tab DAILY PO Last administered on 12/23/24at 08:31; Start 12/21/24 at 11:00; Stop 01/20/25 at 10:59 Docusate Sodium 50 mg DAILY PO Last administered on 12/23/24at 08:31; Start 12/21/24 at 11:00; Stop 01/20/25 at 10:59 Mupirocin 1 APPL BID TP Last administered on 12/23/24at 20:43; Start 12/21/24 at 12:30; Stop 01/20/25 at 12:29 Hydromorphone HCl 0.2 mg Q4H PRN IVP Last administered on 12/23/24at 18:48; Start 12/21/24 at 12:21; Stop 12/26/24 at 12:20 Magnesium Sulfate 50 ml @ 0 mls/hr PROTOCOL IV; Start 12/21/24 at 14:30; Stop 12/21/24 at 14:25; Status DC Pharmacy Profile Note 1 each ONCE MISC; Start 12/22/24 at 18:00; Stop 12/22/24 at 18:01; Status DC Meropenem 1 gm BID@0600,1800 IV Last administered on 12/23/24at 18:37; Start 12/22/24 at 18:00; Stop 01/01/25 at 17:59 Magnesium Sulfate 4 gm ONCE ONCE IV Last administered on 12/23/24at 07:00; Start 12/23/24 at 07:00; Stop 12/23/24 at 07:01; Status DC CINDY HALE MD Dec 23, 2024 21:10
[2024-12-24] VITALS (7 sets, daily range): BP systolic 149–174; BP diastolic 87–95; PULSE 74–78; RESP 16–20; TEMP 97.6–98.6; O2SAT 97–99
[2024-12-24 03:41] LABS: IMMATURE GRANULOCYTE ABSOLUTE 0.08 K/uL (0-1); NUCLEATED RED BLOOD CELLS 0.0 % (0.0-0.19); PLATELET COUNT (AUTO) 562 K/uL (130-400); RED BLOOD CELL COUNT(AUTO) 4.08 MIL/uL (4.50-6.20); RED CELL DISTRIBUTION WIDTH 13.9 % (11.0-15.5); WHITE BLOOD COUNT (AUTO) 9.5 K/uL (4.8-10.8)
[2024-12-24 03:53] LABS: ASPARTATE AMINOTRANSFERASE 21.0 U/L (10-37); CREATININE 1.2 mg/dL (0.5-1.3); GLOMERULAR FILTR. RATE CALC 75.0 mL/min (>90); GLUCOSE,RANDOM 191.0 mg/dL (70-105); SODIUM SERUM 136.0 mmol/L (136-145); TOTAL PROTEIN, SERUM 6.7 g/dL (6.0-8.3); UREA NITROGEN, BLOOD 26.0 mg/dL (7-18)
--- NOTE | 2024-12-24 12:22 | PN ---
[facility] PROGRESS NOTE Date of Service: Dec 24, 2024 Time of Service: 12:21 SUBJECTIVE: 49-year-old male with history of poorly controlled type 2 diabetes mellitus, hypertension, hyperlipidemia, GERD, peripheral arterial disease, history of coronary artery disease with prior history of coronary stenting, peripheral arterial disease with prior history of angioplasty and stenting, morbid obesity, history of scrotal cellulitis with abscess requiring hospitalization in [facility] [facility] on 07/2024. Patient presented to the ER for further evaluation of progressive pain, swelling to the right side of the scrotum ongoing for the past three days. Pain is moderate in intensity involving the right hemiscrotum. Patient reported having subjective fevers, chills as well feels. Reported having dysuria and suprapubic discomfort as well. Patient reported that he was previously hospitalized in [facility] [facility] on 07/2024 where he was found to have right epididymo-orchitis. Patient during his hospitalization needed incision and drainage with debridement of right perineal and Ischiorectal abscess tracking into the scrotum by Dr. Choudhury on 08/01/2024. During this hospita lization had urinary retention requiring Thomas catheter placement. Discharged to long-term acute care for further IV antibiotic therapy. Patient denies any active chest pain, nausea, vomiting, or significant abdominal pain. On presentation to the ER, patient was noted to be in urinary retention with Thomas catheter placement yielding about 400 mL of urine. Patient underwent testicular ultrasound which showed findings of right scrotal wall abscess and mildly reduced flow to the right testicle. Patient underwent CT abdomen pelvis without contrast which showed findings of severe bilateral hydronephrosis with pyelonephritis, cystitis, and 3.6 cm x 5.1 cm right penoscrotal hypodense collection concerning for abscess. Patient admitted for further treatment and management of sepsis with underlying UTI, scrotal wall cellulitis with abscess, acute kidney injury and severe hyperglycemia. Consultation with Urology requested. Patient started on broad-spectrum antibiotics. 12/16 patient remains admitted to the PCU, blood pressure 135/86, afebrile, saturating normal on room air, WBC 14.8, hemoglobin 10.3, hematocrit 32.5, platelet count of 424. Sodium 131, potassium 4.4, CO2 of 19, BUN of 79, creatinine 3.3, uric acid 10.6, phosphorus 5.0. Iron level at 15. Blood gas with an ABG showing a pH of 7.32, pCO2 38, bicarb 19.3. Blood cultures no growth after 24 hours. Urine culture [id number] CFU, identification and sensitivity in progress. Patient evaluated by urologist, they abscesses and spontaneously draining, but the patient is still going to need formal incision and drainage. Clinical exam did not reveal findings suggestive of torsion. There was scrotal wall thickening worse of the right side with cellulitis. Recommended IV antibiotics for now. I will request a stat ABG to assess metabolic status. Patient with low iron level, follow stool occult blood, if positive we will request GI consultation. Patient currently on ferrous sulfate 325 mg p.o. daily. Infectious Disease consultation requested, follow input and recommendation. Patient with creatinine of 3.3, nephrology input noted and appreciated. Patient is started on insulin glargine 20 units subcutaneously daily as well as insulin sliding scale, continue to follow endocrinology input and recommendation. Renal ultrasound will be ordered, discussed with the train gate attendant, if hydronephrosis we will request Urology consult. Follow up PSA level. During my visit patient comfortably in bed, alert oriented x3, no acute events overnight, results of renal function discussed with the patient and the at bedside. 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 Blood pressure 161/79, heart rate of 67, saturating 99% 2 L nasal cannula. CBC with a hemoglobin 11.0, hematocrit 34.7, WBC 12.4, platelet count 497. Sodium 132, potassium 5.1, BUN of 67, creatinine 2.3, (improving compared to yesterday) random glucose 430, total calcium 8.8, magnesium 2.0. Ammonia level less than 10. ABG showing a pH of 7.32, bicarb of 18.4. Renal ultrasound showed urinary bladder wall thickening consult for cystitis, previously bilateral moderate hydroureteronephrosis not visualized. CT head without contrast no acute intracranial abnormality, stable encephalomalacia in the bilateral inferior cerebellar hemispheres suggesting sequela of prior insult, no significant interval change. Ultrasound carotids no hemodynamically significant stenosis bilateral carotid or vertebral arteries. Continue the patient on broad-spectrum IV antibiotics, follow results of intraoperative cultures, continue to follow ID input recommendation, follow urology input and recommendation. Neurology consultation requested, we will follow input and recommendation. Patient upgraded to the ICU, continue close monitoring of the patient's mental status. Follow critical care input and recommendations. Renal function slowly improving, continue to monitor in a.m., continue to assess metabolic status with daily ABG, patient is started on sodium bicarbonate drip. Continue long-acting insulin with glargine 50 units subcutaneously daily as well as insulin sliding scale. A.m. labs At the time of my visit, patient is comfortably in bed, alert and oriented x3, results of CT head discussed with the patient, all questions answered, he denies dizziness, no headache, no chest pain, shortness shortness for breath, no nausea, no vomiting. No weakness to both upper or lower extremities, able to move four extremities well. Able to show me all his teeth without deviation of the mouth. not present in the room at the time of my visit. 12/18 patient remains admitted to the ICU, hemodynamically stable, BP 133/50, afebrile, saturating normal on room air, during my visit the patient is alert oriented x3, denies dizziness, no headache, no chest pain, shortness shortness for breath, no nausea, no vomiting, no focal neurological deficit noted, no slurry speech, able to move both upper and lower extremity. Hemoglobin 10.5, hematocrit 32.2, WBC of 11.2. Results of culture from scrotal abscess positive for Streptococcus agalactiae group B, urine culture positive for yeast. Echocardiogram done, the apical anterior lateral, inferolateral carrillo are severely hypokinetic, the apical inferior wall is thin, scarring and akinetic, LVEF 40%, indeterminate diastolic dysfunction, trace mitral regurgitation, no pericardial effusion. Neck MRA no significant stenosis appreciated. Patient will be downgraded to the PCU, continue broad-spectrum antibiotics, continue to follow urology and ID input and recommendations. 12/19 patient remains admitted to the PCU, BP 151/82, afebrile, saturating normal on room air. WBC 11.3, hemoglobin 10.5, hematocrit 31.9, with a platelet count of 564. BUN 55, creatinine 1.7. Scrotal abscess culture positive for Irina albicans, Streptococcus agalactiae group B and is species. Discharge plan discussed with case management, who is making arrangements for the patient to be discharged to LTAC. Urology input noted and appreciated, patient is status post incision and drainage of tip. José abscess extending towards the rectal region, possibility of the rectal fistula needs to be ruled out. We will request surgical consultation. Continue wound care, continue broad-spectrum antibiotics, continue to follow ID input recommendation, continue hemodialysis per Nephrology recommendations. At the time of my visit the patient is comfortably in bed, alert oriented x3, no focal neurological deficit, plan is to downgraded the patient to the medical floor. 12/20 patient downgraded from the PCU to the medical floor, remains hemodynamically stable, afebrile, saturating normal on room air. Discharge plan discussed again with case management, still pending insurance approval for the patient to be discharged to LTAC. Per urology recommendation, General surgery was contacted to evaluate for the possibility of rectal fistula, surgical input noted and appreciated, continue conservative management with the wound care for now. Endocrinology input noted and appreciated, continue long- acting as well as short-acting insulin, with the adjustments as needed. At the time of my visit patient comfortably in bed, alert oriented x3, no new focal neurological deficits, denied chest pain, shortness shortness for breath, no nausea, no vomiting, no abdominal pain. 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 General surgery consultation requested per urology recommendation to evaluate for possible rectal fistula, per General surgery medical management for now with the antibiotics, can follow up as an outpatient. Case management consulted for discharge plan to [facility], pending acceptance. During my visit today he remains comfortably in bed, alert oriented x3, hemodynamically stable, no acute events overnight per discussion with the RN. He is getting broad-spectrum IV antibiotics. Wound VAC in place. 12/22 patient was seen by nurse practitioner and physician during rounding in room 416. Patient was already discharged to LTAC once insurance approved. Discharge medications were performed by provider. Case management working on disposition. During my visitation today patient is alert and oriented x3 hemodynamically stable. No acute over 90 Invanz as per RN. Patient continues to be on IV antibiotics as ordered by ID. All the labs and radiology was reviewed by PRESS SERVICE READER. Wound VAC in place. We will continue to monitor patient in the meantime. A.m. labs. 12/23 patient was seen by nurse practitioner and physician during rounding in room 416. Magnesium today is 1.4 and we will be replaced per protocol. We already have final urine culture and wound culture. Antibiotics as per ID. Patient is pending insurance approval to [facility]. Case management is working on the case. We will continue to monitor patient in the meantime. A.m. labs. 12/24 patient remains admitted to the medical floor, blood pressure 153/95, afebr ile, saturating normal on room air, hemoglobin stable 10.2, hematocrit 32.3. Patient pending insurance approval to be discharged to [facility]. At the time of My visit he is comfortable, alert oriented x3, getting IV antibiotics, no chest pain, shortness shortness for breath, no nausea, no vomiting. REVIEW OF SYSTEMS CONSTITUTIONAL: fevers, chills and malaise NEUROLOGICAL: Denies headache, amaurosis fugax, motor weakness, sensory deficit, vertigo/spinning sensation, gait abnormalities, or tremors. ENT: No hearing loss, otalgia, otorrhea, rhinitis, rhinorrhea, hoarseness, or sore throat. CARDIOVASCULAR: Denies any exertional angina, dyspnea on exertion, orthopnea, paroxysmal nocturnal dyspnea, palpitations, life-threatening arrhythmias, claudication. PULMONARY: Denies any shortness of breath, cough, phlegm/sputum, hemoptysis, pleuritic chest pain. SLEEP: Denies morning headaches, daytime somnolence or napping. Denies difficulty falling asleep, staying asleep, waking from sleep. Denies knowledge of snoring. GASTROINTESTINAL: Denies any type of dysphagia to either liquids or solids. Denies nausea, vomiting, pyrosis, early satiety, abdominal pain, diarrhea, constipation, or changes in stool consistency or caliber. Denies coffee-ground emesis, hematemesis, hematochezia, or melanotic stools. GENITOURINARY: redness, swelling and pain to the right side of the scrotum ENDOCRINOLOGIC: poorly controlled DM II with hyperglycemia HEMATOLOGIC: Denies thrombophilia/previous clots, or coagulopathy/bleeding disorders. ONCOLOGIC: Denies personal history of malignancy. DERMATOLOGIC: redness and swelling to the right richie-scrotum PSYCHIATRIC: Denies any suicidal or homicidal ideation. Denies hallucinations. PHYSICAL EXAM GENERAL APPEARANCE: The patient is awake, alert, and oriented, in no acute cardiopulmonary distress. NEUROLOGICAL: Cranial nerves II-XII grossly intact. Motor is 5/5 in bilateral upper and lower extremities proximal to distal. No sensory deficits. HEENT: Face is symmetric. Pupils are equal and reactive. Extraocular movements are intact. NECK: Supple. No JVD. No thyromegaly. No submental, submandibular, pre- /postauricular, occipital or supraclavicular lymphadenopathy. CHEST: Normal chest expansion. No Telemetry. LUNGS: Absence of any rales, rhonchi or any wheezing. CARDIOVASCULAR: Regular. S1 and S2 normal. No appreciable rubs, murmurs or gallops. ABDOMEN: Soft, nontender, and nondistended. There is no rebound, voluntary guarding, or rigidity. : no abnormalities EXTREMITIES: No significant swelling noted Vital Signs (last 8hr) Date Time Temp Pulse Resp B/P (MAP) Pulse Ox O2 Delivery O2 Flow Rate FiO2 12/24/24 11:16 98.6 78 16 153/95 99 Room Air 12/24/24 08:49 98.2 74 16 174/90 99 Room Air 12/24/24 08:00 99 Room Air* 0 21 LABS: Laboratory: Test 12/24/24 10:46 12/24/24 03:29 12/23/24 04:36 Range/Units Whole Blood Glucose 133 H 70-110 MG/DL White Blood Count 9.5 4.8-10.8 K/uL Red Blood Count 4.08 L 4.50-6.20 MIL/uL Hemoglobin 10.2 L 14.0-18.0 g/dL Hematocrit 32.3 L 42-54 % Mean Corpuscular Volume 79.2 79-99 fL Mean Corpuscular Hemoglobin 25.0 L 27.0-33.0 pg Mean Corpuscular Hemoglobin Concent 31.6 L 32.0-36.0 g/dL Red Cell Distribution Width 13.9 11.0-15.5 % Platelet Count 562 H 130-400 K/uL Mean Platelet Volume 8.8 7.5-10.5 fL Immature Granulocyte % (Auto) 0.8 0-1 % Neutrophils (%) (Auto) 59.9 40.0-77.0 % Lymphocytes (%) (Auto) 30.4 21.0-51.0 % Monocytes (%) (Auto) 6.7 3.0-13.0 % Eosinophils (%) (Auto) 1.7 0.0-8.0 % Basophils (%) (Auto) 0.5 0.0-5.0 % Neutrophils # (Auto) 5.7 1.8-7.7 K/uL Lymphocytes # (Auto) 2.9 1.0-4.8 K/uL Monocytes # (Auto) 0.6 0.1-1.0 K/uL Eosinophils # (Auto) 0.16 0.00-0.70 K/uL Basophils # (Auto) 0.05 0.00-0.20 K/uL Absolute Immature Granulocyte (auto 0.08 0-1 K/uL Nucleated Red Blood Cells 0.0 0.0-0.19 % Sodium Level 136 136-145 mmol/L Potassium Level 4.1 3.5-5.1 mmol/L Chloride Level 101 101-111 mmol/L Carbon Dioxide Level 30 21-32 mmol/L Blood Urea Nitrogen 26 H 7-18 mg/dL Creatinine 1.2 0.5-1.3 mg/dL Glomerular Filtration Rate Calc 75 >90 mL/min Random Glucose 191 H 70-105 mg/dL Total Calcium 8.3 L 8.5-10.1 mg/dL Magnesium Level 2.10 1.80-2.40 mg/dL Total Bilirubin 0.2 0.2-1.0 mg/dL Aspartate Amino Transf (AST/SGOT) 21 10-37 U/L Alanine Aminotransferase (ALT/SGPT) 22 12-78 U/L Alkaline Phosphatase 205 H 50-136 U/L Total Protein 6.7 6.0-8.3 g/dL Albumin 1.6 L 3.5-5.0 g/dL Red Blood Cell Morphology See comments Phosphorus Level 3.8 2.5-4.9 mg/dL Current Medications Medications (Trade) Dose Ordered Sig/Gaby Route PRN Reason Start Time Stop Time Status Last Admin Dose Admin Acetaminophen (acetaMINOPHEN) 1,000 mg ONCE IVPB 12/17/24 17:00 12/18/24 18:10 DC 12/17/24 17:11 1,000 MG Aspirin (Aspirin 81mg Ec Tab) 81 mg DAILY PO 12/18/24 09:00 01/17/25 08:59 12/24/24 07:58 81 MG Atorvastatin Calcium (LIPItor 40MG) 40 mg HS PO 12/15/24 21:00 01/14/25 20:59 12/23/24 20:38 40 MG Dextrose (D50w) 50 ml AD PRN IV HYPOGLYCEMIA PROTOCOL 12/15/24 13:30 01/14/25 13:29 Docusate Sodium (COLace LIQUID 100MG/10ML) 50 mg DAILY PO 12/21/24 11:00 01/20/25 10:59 12/24/24 07:57 50 MG Famotidine (Pepcid 20mg Vial) 20 mg DAILY IV 12/16/24 09:00 12/17/24 10:49 DC 12/17/24 08:53 20 MG Ferrous Sulfate (Ferrous Sulfate) 325 mg DAILY PO 12/16/24 09:00 01/15/25 08:59 12/24/24 07:58 325 MG Fluconazole/ Sodium Chloride 100 ml @ 100 mls/hr DAILY IV 12/21/24 09:00 01/20/25 08:59 12/24/24 07:58 100 MLS/HR Glucagon (Glucagon 1mg Kit) 1 mg AD PRN IM HYPOGLYCEMIA PROTOCOL 12/15/24 13:30 01/14/25 13:29 Heparin Sodium (Porcine) (HEParin 5,000 UNIT VIAL) 5,000 unit BID SQ 12/17/24 11:00 01/16/25 10:59 12/24/24 08:03 5,000 UNIT Home Med (Home Medication) (Sennosides/ Docusate Sodium (Colace 2-i... DAILY PO 12/16/24 09:00 12/21/24 10:37 DC Hydralazine HCl (APRESOLine 20MG INJ) 5 mg Q6H PRN IV ADMINISTER FOR SBP > 160 12/15/24 14:30 01/14/25 14:29 Hydromorphone HCl (DiLAUDid 0.5MG INJ) 0.2 mg Q4H PRN IVP SEVERE PAIN (7-10) 12/21/24 12:21 12/26/24 12:20 12/24/24 08:05 0.2 MG Hydromorphone HCl (DiLAUDid 0.5MG INJ) 0.2 mg Q6H PRN IVP SEVERE PAIN (7-10) 12/15/24 13:30 12/18/24 09:00 DC 12/17/24 04:34 0.2 MG Insulin Glargine (LANtus 100 UNITS/ML 10 ML VIAL) 20 units DAILY SQ 12/16/24 09:00 12/17/24 07:32 DC Insulin Glargine (LANtus 100 UNITS/ML 10 ML VIAL) 20 units HS SQ 12/15/24 21:00 12/16/24 06:19 DC 12/15/24 21:05 20 UNITS Insulin Glargine (LANtus 100 UNITS/ML 10 ML VIAL) 25 units HS SQ 12/15/24 21:00 12/15/24 18:52 DC Insulin Glargine (LANtus 100 UNITS/ML 10 ML VIAL) 50 units DAILY SQ 12/17/24 09:00 01/16/25 08:59 12/24/24 08:03 50 UNITS Insulin Human Regular (humuLIN R 100 UNIT/ML 3ML) 8 unit TIDAC SQ 12/16/24 07:30 12/17/24 07:32 DC 12/17/24 06:59 8 UNIT Insulin Human Regular (humuLIN R 100 UNIT/ML 3ML) 15 unit TIDAC SQ 12/17/24 07:30 12/20/24 21:39 DC 12/20/24 16:01 15 UNIT Insulin Human Regular (humuLIN R 100 UNIT/ML 3ML) 16 unit TIDAC SQ 12/21/24 07:30 01/20/25 07:29 12/24/24 06:24 16 UNIT Insulin Human Regular (humuLIN R 100 UNIT/ML 3ML) INSULIN SLIDING SCAL... ACHS SQ 12/15/24 16:30 12/16/24 06:19 DC 12/15/24 21:03 5 UNIT Insulin Human Regular (humuLIN R 100 UNIT/ML 3ML) INSULIN SLIDING SCAL... ACHS SQ 12/16/24 07:30 01/15/25 07:29 12/24/24 06:22 4 UNIT Leptospermum Honey ([facility]) 1 APPLICATION ONCE STAT TP 12/19/24 16:04 12/19/24 16:06 DC 12/19/24 16:35 1 APPL Leptospermum Honey ([facility]) 1 APPL QMOWEFR TP 12/21/24 09:00 01/20/25 08:59 12/24/24 09:51 1 APPL Linezolid 300 ml @ 150 mls/hr Q12H IV 12/15/24 21:00 12/17/24 19:54 DC 12/17/24 08:53 150 MLS/HR Linezolid 300 ml @ 150 mls/hr Q12H IV 12/17/24 21:00 12/19/24 20:59 DC 12/19/24 10:01 150 MLS/HR Magnesium Sulfate 50 ml @ 0 mls/hr PROTOCOL IV 12/20/24 10:00 01/19/25 09:59 12/23/24 05:47 25 MLS/HR Magnesium Sulfate 50 ml @ 0 mls/hr PROTOCOL IV 12/21/24 14:30 12/21/24 14:25 DC Magnesium Sulfate 50 ml @ 0 mls/hr PROTOCOL PRN IV MAGNESIUM PROTOCOL 12/18/24 09:30 12/20/24 09:53 DC 12/18/24 10:42 25 MLS/HR Meropenem (Merrem 1gm) 1 gm BID@0600,1800 IV 12/22/24 18:00 01/01/25 17:59 12/24/24 05:35 1 GM Meropenem (Merrem 1gm) 1 gm Q12H IVPB 12/15/24 16:00 12/17/24 19:54 DC 12/17/24 17:11 1 GM Meropenem (Merrem 1gm) 1 gm Q12H IVPB 12/18/24 04:00 12/20/24 23:00 DC 12/20/24 16:01 1 GM Mupirocin (Bactroban Oint) 1 APPL BID TP 12/21/24 12:30 01/20/25 12:29 12/24/24 09:51 1 APPL Naloxone HCl (NARcan HCL 1 MG/ ML 2ML SYG) 2 mg ONCE IV 12/17/24 11:00 12/17/24 10:36 DC Ondansetron HCl (zoFRAN 4MG INJ) 4 mg Q6H6 PRN IVP NAUSEA/VOMITING 12/21/24 02:30 01/20/25 02:29 12/22/24 23:02 4 MG Pantoprazole Sodium (PROTonix 40MG INJ) 40 mg DAILY IVP 12/18/24 09:00 01/17/25 08:59 12/24/24 07:57 40 MG Pharmacy Profile Note (Pharmacy Communication) 1 each ONCE MISC 12/15/24 13:30 12/15/24 14:18 DC Pharmacy Profile Note (Pharmacy Communication) 1 each ONCE MISC 12/22/24 18:00 12/22/24 18:01 DC Sennosides (Senna) 1 tab DAILY PO 12/21/24 11:00 01/20/25 10:59 12/24/24 07:58 1 TAB Sodium Bicarbonate 150 meq/Dextrose 1,150 ml @ 50 mls/hr Q23H IVP 12/17/24 11:00 12/18/24 11:36 DC 12/18/24 08:25 50 MLS/HR Sodium Bicarbonate (Sodium Bicarbonate) 650 mg QID PO 12/16/24 13:00 01/15/25 12:59 12/24/24 08:01 650 MG Sodium Chloride 1,000 ml @ 75 mls/hr [id number] IV 12/15/24 13:30 12/17/24 10:49 DC 12/17/24 01:40 75 MLS/HR Tamsulosin HCl (FloMAX) 0.4 mg DAILY PO 12/16/24 09:00 01/15/25 08:59 12/24/24 07:58 0.4 MG Vancomycin HCl 250 ml @ 125 mls/hr Q48H IV 12/17/24 11:00 12/15/24 13:19 DC Vancomycin HCl (Vancomycin Protocol) 1 each AD IV 12/15/24 11:00 12/15/24 23:52 DC Vitamin B Complex/ Vit C/Folic Acid (Nephrovite Tablet) 1 cap DAILY PO 12/16/24 09:00 01/15/25 08:59 12/24/24 07:57 1 CAP DIAGNOSTICS / RADIOLOGY: [ ] FINAL DIAGNOSIS Sepsis secondary to complicated urinary tract infection and scrotal cellulitis with abscess, POA Progressive scrotal cellulitis with developing right hemiscrotal abscess, POA status post excisional debridement of necrotic soft tissue from the perineum secondary to 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) Wound culture positive for Irina albicans, Streptococcus agalactiae group B and yeast species Severe complicated urinary tract infection, POA Urinary retention status post Thomas catheter placement, POA Bilateral hydronephrosis, POA Acute kidney injury with underlying history of chronic kidney disease, POA Severe nonketotic hyperglycemia with poorly controlled type 2 diabetes mellitus, POA History of Farxiga use as outpatient, POA Hypertension, POA History of dual antiplatelet therapy with aspirin and Plavix as outpatient, POA History of coronary artery disease with prior history of coronary intervention a nd stenting, POA History of peripheral arterial disease with history of lower extremity angioplasty and stenting, POA History of TIA, POA Hypertension, POA Hyperlipidemia, POA Debility, POA Right eye blindness, POA Decreased vision of left eye, POA History of iron deficiency anemia, POA History of hospitalization in [facility] for right epididymo-orchitis with abscess requiring surgical drainage,07/2024, POA JANET IVAN MD Dec 24, 2024 12:22
--- NOTE | 2024-12-24 15:13 | PN ---
INFECTIOUS DISEASE PROGRESS NOTE Date of Service: Dec 24, 2024 SUBJECTIVE: Patient was seen and examined at bedside in room 416. Patient is awake, alert and oriented x3. Patient is s/p drainage and excisional debridement of the scrotal wall abscess on 12/16/2024. Patient continues with wound VAC therapy. Patient is afebrile, temperature is 98.6. Continues on fluconazole and Meropenem. Patient has been approved to [facility]. PHYSICAL EXAM EYES: Anicteric. Pupils equal and reactive. HENT: No oral thrush seen, moist Oral mucosa. NECK: Supple, no JVD or thyromegaly. LUNGS: Good air entry. No rales, no rhonchi. CARDIOVASCULAR: S1, S2 regular. No murmur heard. ABDOMEN: Soft, non tender, bowel sounds present, no organomegaly. CENTRAL NERVOUS SYSTEM: Awake, alert, oriented x 3. SKIN: No rashes, no swelling. LYMPHATICS: No peripheral lymphadenopathy MUSCULOSKELETAL: No joint swelling, erythema or tenderness. EXTREMITIES: No cyanosis or clubbing. BACK: No deformity, no pressure ulcer. GENITOURINARY: No dysuria or hematuria. Thomas catheter. Scrotal abscess, s/p drainage and debridement. Wound VAC in placed. Vital Sign (Last 12 Hours) 12/24/24 12/24/24 12/24/24 12/24/24 04:00 08:00 08:49 11:16 Temp 98.2 98.2 98.6 Pulse 75 74 78 Resp 20 16 16 B/P (MAP) 159/88 174/90 153/95 Pulse Ox 96 99 99 99 O2 Delivery Room Air Room Air* Room Air Room Air O2 Flow Rate 0 FiO2 21 Intake & Output (last 24hrs) 12/23/24 12/23/24 12/24/24 15:00 23:00 07:00 Intake Total 420 ml 1820 ml Output Total 1900 ml 1000 ml Balance 420 ml -80 ml -1000 ml LABS: Laboratory: Test 12/24/24 10:46 12/24/24 03:29 12/23/24 04:36 Range/Units Whole Blood Glucose 133 H 70-110 MG/DL White Blood Count 9.5 4.8-10.8 K/uL Red Blood Count 4.08 L 4.50-6.20 MIL/uL Hemoglobin 10.2 L 14.0-18.0 g/dL Hematocrit 32.3 L 42-54 % Mean Corpuscular Volume 79.2 79-99 fL Mean Corpuscular Hemoglobin 25.0 L 27.0-33.0 pg Mean Corpuscular Hemoglobin Concent 31.6 L 32.0-36.0 g/dL Red Cell Distribution Width 13.9 11.0-15.5 % Platelet Count 562 H 130-400 K/uL Mean Platelet Volume 8.8 7.5-10.5 fL Immature Granulocyte % (Auto) 0.8 0-1 % Neutrophils (%) (Auto) 59.9 40.0-77.0 % Lymphocytes (%) (Auto) 30.4 21.0-51.0 % Monocytes (%) (Auto) 6.7 3.0-13.0 % Eosinophils (%) (Auto) 1.7 0.0-8.0 % Basophils (%) (Auto) 0.5 0.0-5.0 % Neutrophils # (Auto) 5.7 1.8-7.7 K/uL Lymphocytes # (Auto) 2.9 1.0-4.8 K/uL Monocytes # (Auto) 0.6 0.1-1.0 K/uL Eosinophils # (Auto) 0.16 0.00-0.70 K/uL Basophils # (Auto) 0.05 0.00-0.20 K/uL Absolute Immature Granulocyte (auto 0.08 0-1 K/uL Nucleated Red Blood Cells 0.0 0.0-0.19 % Sodium Level 136 136-145 mmol/L Potassium Level 4.1 3.5-5.1 mmol/L Chloride Level 101 101-111 mmol/L Carbon Dioxide Level 30 21-32 mmol/L Blood Urea Nitrogen 26 H 7-18 mg/dL Creatinine 1.2 0.5-1.3 mg/dL Glomerular Filtration Rate Calc 75 >90 mL/min Random Glucose 191 H 70-105 mg/dL Total Calcium 8.3 L 8.5-10.1 mg/dL Magnesium Level 2.10 1.80-2.40 mg/dL Total Bilirubin 0.2 0.2-1.0 mg/dL Aspartate Amino Transf (AST/SGOT) 21 10-37 U/L Alanine Aminotransferase (ALT/SGPT) 22 12-78 U/L Alkaline Phosphatase 205 H 50-136 U/L Total Protein 6.7 6.0-8.3 g/dL Albumin 1.6 L 3.5-5.0 g/dL Red Blood Cell Morphology See comments Phosphorus Level 3.8 2.5-4.9 mg/dL ASSESSMENT: Perineal abscess, s/p drainage and excisional debridement on 12/16/2024 Sepsis, resolving. Polymicrobial infection. Urinary tract infection. Leukocytosis, resolving. Acute renal failure, resolving. Hydronephrosis. Diabetes mellitus. Recent right Scrotal wall abscess with I&D and debridement on 08/01/2024. PLAN: Continue fluconazole. Continue Meropenem. Continue GI prophylaxis. Continue pain management. Continue wound care, currently on wound wound VAC therapy. Continue antidiabetics. Avoid nephrotoxic medications. Patient has been approved to [facility]. This case was reviewed and discussed with my supervising physician and the above assessment and plan was formulated and agreed upon. ATTESTATION BY PHYSICIAN I have seen and examined the patient. I reviewed the documentation, medical decision making, and treatment plan as noted by the mid-level provider above. I agree with the findings and plan of care. GRANT SUMMERS MD, [facility] Dec 24, 2024 15:12
--- NOTE | 2024-12-24 16:25 | NUR ---
[facility] Follow-up: Patient re-assessed by wound healing team. See wound assessment. Assessment and recommendations provided to primary nurse. Education provided. Wound care done. Addendum: 12/25/24 at 1024 by MATTEO LEARY RN RN/ Amended: Links added.
--- NOTE | 2024-12-24 17:00 | PN ---
Endocrinology progress note DOS: 12/24/24 subjective: hyperglycemia is improving now s/p surgery for deep perineal abscess.s/p wound vac. glucose are improving. Home diabetic regimen: lantus 50 units daily, lispro insulin 25 units tid before meals, janumet mg bid Hba1c 14% PAST SURGICAL HISTORY: [Left AKA, right leg stents x4, cardiac stent x3 , hx of Incision and drainage with debridement of right perineal and ischiorectal abscess tracking into the scrotum by Dr. Choudhury on 07/2024 PAST SOCIAL HISTORY: [Patient lives with his . Patient denies alcohol tobacco and recreational drug use . Patient states he used to smoke cigarette for 17 years two packs per day and quit two years ago] Allergies: Morphine causes headache Home medications: patient reports being on [id number] mg daily, [id number] mg daily, Lantus 50 units daily, insulin lispro,5 units b.i.d. p.c., losartan 50 mg daily, Colace daily, Janumet twice daily, Flomax 0.4 mg daily, clotrimazole cream twice daily, ferrous [id number] mg daily, Lipitor 40 mg daily Coded Allergies: morphine (Unverified Allergy, Intermediate, HALLUCINATIONS, 02/13/23) DIAGNOSTICS / RADIOLOGY: SERVICE 1040 REASON: urinary retention, testicular swelling wo per provider ORDERING PHYSICIAN: NYLA MORALES PROCEDURE: ABD PEL WO - CT ABDOMEN/PELVIS W/O CONTRAST EXAM: CT Abdomen and Pelvis Without IV contrast CLINICAL HISTORY: urinary retention, testicular swelling wo per provider TECHNIQUE: Axial computed tomography images of the abdomen and pelvis without intravenous contrast. CONTRAST: No IV contrast. COMPARISON: [facility], [place] dated 02/08/23 FINDINGS: LUNG BASES: There are atelectatic bands within the bilateral lower lobes. LIVER: Unremarkable. GALLBLADDER AND BILE DUCTS: Post cholecystectomy status with surgical clips in situ. PANCREAS: Unremarkable. SPLEEN: Unremarkable. ADRENAL GLANDS: Unremarkable. KIDNEYS, URETERS, AND BLADDER: There is marked concentric bladder wall thickening, more pronounced posteriorly, with perivesicular fat stranding likely reflecting cystitis. There is reflux within the bilateral ureters resulting in severe bilateral hydronephrosis and also bilateral perinephric fat stranding reflecting pyelonephritis. There is no radiopaque calculus appreciated. STOMACH AND BOWEL: Unremarkable appearance of the stomach and bowel. No evidence of bowel obstruction. No evidence suggesting enteritis or colitis. APPENDIX: No evidence of acute appendicitis on CT examination. PERITONEUM: Small 7 mm fat-containing umbilical hernia. LYMPH NODES: No lymphadenopathy is evident. REPRODUCTIVE: A well-defined hypodense collection along the right penoscrotal region, measuring 6 x 5.1 cm, concerning for abscess. VASCULATURE: Atherosclerotic changes of the abdominal aorta. BONES: No aggressive appearing osseous lesion. No acute osseous pathology evident. IMPRESSION: 1. Severe bilateral hydronephrosis with pyelonephritis and perinephric fat stranding. 2. Marked bladder wall thickening with perivesicular fat stranding, compatible with cystitis. 3. 6 x 5.1 cm right penoscrotal hypodense collection, concerning for abscess. /[place] DICTATED BY: ALICE LEARY Jr., MD DATE: 12/15/241458 ELECTRONICALLY SIGNED BY: ALICE LEARY Jr., MD DATE: 12/15/241458 ELECTRONICALLY SIGNED BY: DATE: EXAM: US Scrotum. CLINICAL HISTORY: TESTICULAR PAIN/SWELLING TECHNIQUE: Real-time ultrasound of the scrotum with color Doppler and image documentation. COMPARISON: Study dated 07/29. FINDINGS: RIGHT TESTICLE: Normal in size (3.3 cm x 1.5 cm x 2.4 cm) and echogenicity, no abnormal mass. Mildly reduced Doppler flow. LEFT TESTICLE: Normal in size (3.6 cm x 1.4 cm x 2.1 cm) and echogenicity, no abnormal mass. Normal Doppler flow. EPIDIDYMIDES: Within normal limits in size and vascularity. A 3 x 3 x 3 mm cyst along the head of the right epididymis. SCROTUM: There is significant improvement of previously documented abscess measuring 2.5 x 2.2 cm along the right scrotal wall (6 mm). No hydrocele, varicocele seen. IMPRESSION: 1. Scrotal wall abscess along the right side, measuring 2.5 x 2.2 cm, showing significant improvement/reduction in size. 2. Mildly reduced blood flow to the right testicle. Clinical correlation is advised for possible intermittent right testicular torsion. /[place] DICTATED BY: ALICE LEARY Jr., MD DATE: 12/15/241323 ELECTRONICALLY SIGNED BY: ALICE LEARY Jr., MD DATE: 12/15/241323 ASSESSMENT: uncontrolled DM-2 and hyperglycemia insulin adjusted and glucose are improving. now s/p surgery for deep perineal abscess. .s/p wound vac. glucose are improving. Home diabetic regimen: lantus 50 units daily, lispro insulin 25 units tid before meals, janumet mg bid Hba1c 14% Sepsis secondary to complicated urinary tract infection and scrotal cellulitis with abscess, POA s/p surgery Progressive scrotal cellulitis with developing right hemiscrotal abscess, POA Severe complicated urinary tract infection, POA Urinary retention status post Thomas catheter placement, POA Bilateral hydronephrosis, POA Acute kidney injury with underlying history of chronic kidney disease, POA History of Farxiga use as outpatient, POA but off due to hx of perineal abscess Hypertension, POA History of dual antiplatelet therapy with aspirin and Plavix as outpatient, POA History of coronary artery disease with prior history of coronary intervention and stenting, POA History of peripheral arterial disease with history of lower extremity angioplasty and stenting, POA History of TIA, POA Hypertension, POA Hyperlipidemia, POA Debility, POA Right eye blindness, POA Decreased vision of left eye, POA History of iron deficiency anemia, POA History of hospitalization in [facility] for right epididymo-orchitis with abscess requiring surgical drainage,07/2024, POA PLAN: continue Lantus 50 units daily and adjust for fasting glucose. continue Regular insulin 17 units daily and adjust for post-prandial glucose. Continue medium dose sliding scale insulin. Monitor glucose q x 6 hourly. Continue carb consistent diet. Keep glucose less than 180 mg/dl. Vitals/Labs Vital Signs Date Time Temp Pulse Resp B/P (MAP) Pulse Ox O2 Delivery O2 Flow Rate FiO2 12/24/24 15:51 97.5 76 20 151/87 100 Room Air 12/24/24 08:00 0 21 Laboratory Tests 12/24/24 03:29 Medications Current Medications Acetaminophen 1,000 mg ONCE ONCE PO Last administered on 12/15/24at 11:13; Start 12/15/24 at 11:00; Stop 12/15/24 at 11:01; Status DC Sodium Chloride 1,000 ml @ 0 mls/hr ONCE ONCE IV Last administered on 12/15/24at 11:33; Start 12/15/24 at 11:00; Stop 12/15/24 at 11:01; Status DC Vancomycin HCl 1 each AD IV; Start 12/15/24 at 11:00; Stop 12/15/24 at 23:52; Status DC Cefepime HCl 1 gm ONCE ONCE IVPB Last administered on 12/15/24at 11:37; Start 12/15/24 at 11:00; Stop 12/15/24 at 11:01; Status DC Vancomycin HCl 250 ml @ 125 mls/hr ONCE ONCE IV Last administered on 12/15/24at 11:51; Start 12/15/24 at 11:00; Stop 12/15/24 at 12:59; Status DC Insulin Human Regular 10 unit ONCE ONCE IV Last administered on 12/15/24at 11:48; Start 12/15/24 at 11:30; Stop 12/15/24 at 11:31; Status DC Vancomycin HCl 250 ml @ 125 mls/hr Q48H IV; Start 12/17/24 at 11:00; Stop 12/15/24 at 13:19; Status DC Insulin Human Regular INSULIN SLIDING SCAL... ACHS SQ Last administered on 12/15/24at 21:03; Start 12/15/24 at 16:30; Stop 12/16/24 at 06:19; Status DC Dextrose 50 ml AD PRN IV; Start 12/15/24 at 13:30; Stop 01/14/25 at 13:29 Glucagon 1 mg AD PRN IM; Start 12/15/24 at 13:30; Stop 01/14/25 at 13:29 Pharmacy Profile Note 1 each ONCE MISC; Start 12/15/24 at 13:30; Stop 12/15/24 at 14:18; Status DC Atorvastatin Calcium 40 mg HS PO Last administered on 12/23/24at 20:38; Start 12/15/24 at 21:00; Stop 01/14/25 at 20:59 Tamsulosin HCl 0.4 mg DAILY PO Last administered on 12/24/24at 07:58; Start 12/16/24 at 09:00; Stop 01/15/25 at 08:59 Ferrous Sulfate 325 mg DAILY PO Last administered on 12/24/24at 07:58; Start 12/16/24 at 09:00; Stop 01/15/25 at 08:59 Home Med (Sennosides/ Docusate Sodium (Colace 2-i... DAILY PO; Start 12/16/24 at 09:00; Stop 12/21/24 at 10:37; Status DC Sodium Chloride 1,000 ml @ 75 mls/hr [id number] IV Last administered on 12/17/24at 01:40; Start 12/15/24 at 13:30; Stop 12/17/24 at 10:49; Status DC Hydromorphone HCl 0.2 mg Q6H PRN IVP Last administered on 12/17/24at 04:34; Start 12/15/24 at 13:30; Stop 12/18/24 at 09:00; Status DC Famotidine 20 mg DAILY IV Last administered on 12/17/24at 08:53; Start 12/16/24 at 09:00; Stop 12/17/24 at 10:49; Status DC Sodium Chloride 500 ml @ 0 mls/hr ONCE ONCE IV Last administered on 12/15/24at 15:13; Start 12/15/24 at 14:30; Stop 12/15/24 at 14:31; Status DC Hydralazine HCl 5 mg Q6H PRN IV; Start 12/15/24 at 14:30; Stop 01/14/25 at 14:29 Meropenem 1 gm Q12H IVPB Last administered on 12/17/24at 17:11; Start 12/15/24 at 16:00; Stop 12/17/24 at 19:54; Status DC Linezolid 300 ml @ 150 mls/hr Q12H IV Last administered on 12/17/24at 08:53; Start 12/15/24 at 21:00; Stop 12/17/24 at 19:54; Status DC Vitamin B Complex/ Vit C/Folic Acid 1 cap DAILY PO Last administered on 12/24/24at 07:57; Start 12/16/24 at 09:00; Stop 01/15/25 at 08:59 Insulin Glargine 25 units HS SQ; Start 12/15/24 at 21:00; Stop 12/15/24 at 18:52; Status DC Insulin Glargine 20 units HS SQ Last administered on 12/15/24at 21:05; Start 12/15/24 at 21:00; Stop 12/16/24 at 06:19; Status DC Insulin Glargine 20 units DAILY SQ; Start 12/16/24 at 09:00; Stop 12/17/24 at 07:32; Status DC Insulin Human Regular 8 unit TIDAC SQ Last administered on 12/17/24at 06:59; Start 12/16/24 at 07:30; Stop 12/17/24 at 07:32; Status DC Insulin Human Regular INSULIN SLIDING SCAL... ACHS SQ Last administered on 12/24/24at 06:22; Start 12/16/24 at 07:30; Stop 01/15/25 at 07:29 Sodium Bicarbonate 650 mg QID PO Last administered on 12/24/24at 13:01; Start 12/16/24 at 13:00; Stop 01/15/25 at 12:59 Sodium Bicarbonate 50 meq ONCE ONCE IV Last administered on 12/16/24at 12:34; Start 12/16/24 at 12:00; Stop 12/16/24 at 12:05; Status DC Dexamethasone Sodium Phosphate 4 mg STK-MED ONCE .ROUTE; Start 12/16/24 at 15:54; Stop 12/16/24 at 16:00; Status DC Lidocaine HCl 5 ml STK-MED ONCE .ROUTE; Start 12/16/24 at 15:54; Stop 12/16/24 at 16:00; Status DC Midazolam HCl 2 mg STK-MED ONCE .ROUTE; Start 12/16/24 at 15:55; Stop 12/16/24 at 16:00; Status DC Propofol 200 mg STK-MED ONCE IV; Start 12/16/24 at 15:55; Stop 12/16/24 at 16:00; Status DC Succinylcholine Chloride 200 mg STK-MED ONCE .ROUTE; Start 12/16/24 at 15:55; Stop 12/16/24 at 16:00; Status DC Ondansetron HCl 4 mg STK-MED ONCE .ROUTE; Start 12/16/24 at 15:55; Stop 12/16/24 at 16:00; Status DC Rocuronium [place] 50 mg STK-MED ONCE .ROUTE; Start 12/16/24 at 15:55; Stop 12/16/24 at 16:00; Status DC Fentanyl Citrate 100 mcg STK-MED ONCE .ROUTE; Start 12/16/24 at 15:55; Stop 12/16/24 at 16:00; Status DC Insulin Glargine 50 units DAILY SQ Last administered on 12/24/24at 08:03; Start 12/17/24 at 09:00; Stop 01/16/25 at 08:59 Insulin Human Regular 15 unit TIDAC SQ Last administered on 12/20/24at 16:01; Start 12/17/24 at 07:30; Stop 12/20/24 at 21:39; Status DC Naloxone HCl 2 mg ONCE IV; Start 12/17/24 at 11:00; Stop 12/17/24 at 10:36; Status DC Naloxone HCl 2 mg ONCE ONCE IV; Start 12/17/24 at 11:00; Stop 12/17/24 at 11:01; Status DC Heparin Sodium (Porcine) 5,000 unit BID SQ Last administered on 12/24/24at 08:03; Start 12/17/24 at 11:00; Stop 01/16/25 at 10:59 Pantoprazole Sodium 40 mg DAILY IVP Last administered on 12/24/24at 07:57; Start 12/18/24 at 09:00; Stop 01/17/25 at 08:59 Sodium Bicarbonate 150 meq/Dextrose 1,150 ml @ 50 mls/hr Q23H IVP Last administered on 12/18/24at 08:25; Start 12/17/24 at 11:00; Stop 12/18/24 at 11:36; Status DC Aspirin 81 mg DAILY PO Last administered on 12/24/24at 07:58; Start 12/18/24 at 09:00; Stop 01/17/25 at 08:59 Acetaminophen 1,000 mg ONCE IVPB Last administered on 12/17/24at 17:11; Start 12/17/24 at 17:00; Stop 12/18/24 at 18:10; Status DC Linezolid 300 ml @ 150 mls/hr Q12H IV Last administered on 12/19/24at 10:01; Start 12/17/24 at 21:00; Stop 12/19/24 at 20:59; Status DC Meropenem 1 gm Q12H IVPB Last administered on 12/20/24at 16:01; Start 12/18/24 at 04:00; Stop 12/20/24 at 23:00; Status DC Magnesium Sulfate 50 ml @ 0 mls/hr PROTOCOL PRN IV Last administered on 12/18/24at 10:42; Start 12/18/24 at 09:30; Stop 12/20/24 at 09:53; Status DC Leptospermum Honey 1 APPLICATION ONCE STAT TP Last administered on 12/19/24at 16:35; Start 12/19/24 at 16:04; Stop 12/19/24 at 16:06; Status DC Leptospermum Honey 1 APPL [id number] TP Last administered on 12/24/24at 09:51; Start 12/21/24 at 09:00; Stop 01/20/25 at 08:59 Fluconazole/ Sodium Chloride 100 ml @ 100 mls/hr DAILY IV Last administered on 12/24/24at 07:58; Start 12/21/24 at 09:00; Stop 01/20/25 at 08:59 Magnesium Sulfate 50 ml @ 0 mls/hr PROTOCOL IV Last administered on 12/23/24at 05:47; Start 12/20/24 at 10:00; Stop 01/19/25 at 09:59 Insulin Human Regular 16 unit TIDAC SQ Last administered on 12/24/24at 06:24; Start 12/21/24 at 07:30; Stop 01/20/25 at 07:29 Ondansetron HCl 4 mg Q6H6 PRN IVP Last administered on 12/22/24at 23:02; Start 12/21/24 at 02:30; Stop 01/20/25 at 02:29 Sennosides 1 tab DAILY PO Last administered on 12/24/24at 07:58; Start 12/21/24 at 11:00; Stop 01/20/25 at 10:59 Docusate Sodium 50 mg DAILY PO Last administered on 12/24/24at 07:57; Start 12/21/24 at 11:00; Stop 01/20/25 at 10:59 Mupirocin 1 APPL BID TP Last administered on 12/24/24at 09:51; Start 12/21/24 at 12:30; Stop 01/20/25 at 12:29 Hydromorphone HCl 0.2 mg Q4H PRN IVP Last administered on 12/24/24at 08:05; Start 12/21/24 at 12:21; Stop 12/26/24 at 12:20 Magnesium Sulfate 50 ml @ 0 mls/hr PROTOCOL IV; Start 12/21/24 at 14:30; Stop 12/21/24 at 14:25; Status DC Pharmacy Profile Note 1 each ONCE MISC; Start 12/22/24 at 18:00; Stop 12/22/24 at 18:01; Status DC Meropenem 1 gm BID@0600,1800 IV Last administered on 12/24/24at 05:35; Start 12/22/24 at 18:00; Stop 01/01/25 at 17:59 Magnesium Sulfate 4 gm ONCE ONCE IV Last administered on 12/23/24at 07:00; Start 12/23/24 at 07:00; Stop 12/23/24 at 07:01; Status DC Nystatin 1 APPLICATION TID TP Last administered on 12/24/24at 16:42; Start 12/24/24 at 16:34; Stop 01/23/25 at 16:33 CINDY HALE MD Dec 24, 2024 17:00
--- NOTE | 2024-12-24 17:25 | NUR ---
MARISSA REPORT GAVE REPORT TO BRAD ANN LVN. ALL QUESTIONS ANSWERED. NO PENDING CONCERNS. WILL CONTINUE TO DISCHARGE.
--- NOTE | 2024-12-24 17:28 | NUR ---
EMS CALLED EMS SERVICES CALLED FOR PT. PENDING FOR PATIENT TO BE PICKED UP BY EMS. WILL CONTINUE TO MONITOR.
--- NOTE | 2024-12-24 22:27 | PN ---
NEPHROLOGY NOTE SUBJECTIVE: The patient has renal failure, anemia. The patient is planned to be transferred to long-term acute care facility. The patient has no fevers, chills or rigors. No cough, expectoration, or hemoptysis. No other associated findings. The patient does have obesity, underlying diabetes, and hypertension. No other associated symptoms. No other aggravating or relieving factors. PHYSICAL EXAMINATION: GENERAL: The patient is obese, lying in bed. VITAL SIGNS: Blood pressure is 153/95, pulse 78, respiratory rate is 16. HEENT: Head is atraumatic, normocephalic. Pupils are round and reactive. Sclerae are anicteric. Conjunctivae not pale. Oral mucosa is not dry. NECK: Supple. No masses or bruits. Thyroid is palpable. CHEST: Shows equal thoracic percussion note being resonant in all areas. CARDIAC: Regular rhythm. No rubs. No S3, S4. No parasternal heave. LABORATORY DATA: We have reviewed available labs in detail, with a low hemoglobin of 10.2, creatinine is 1.2, BUN of 26. PROBLEMS: * Acute on chronic renal failure. * Underlying diabetes, nephropathy. * Hypertension. * Peripheral vascular disease. * Anemia. * Multiple other comorbidities. PLAN: At this time, continued monitoring of renal function and electrolytes. The patient is treated for perineal abscess with excision and drainage; sepsis, IV antibiotic continue. Follow up closely. The patient is being considered for transfer to a long-term acute care facility. I have discussed with other team physicians. TID: [id number] RECEIPT: [id number]
== END 2024-12-24 20:38 | DRG 853 ==
LOC: EDH 09:56 → EDHIP 13:19 → 2DH 12-16 03:29 → 2CH 12-17 09:47 → 2DH 12-18 21:59 → 2CH 12-18 23:04 → 2DH 12-19 01:21 → 4CH 12-19 14:24
PROVIDERS: ADMIT Internal Medicine; ATTEND Internal Medicine
PROC: 0JBB0ZZ Excision of Perineum Subcutaneous Tissue and Fascia, Open Approach (ICD-10-PCS; 2024-12-16)
PROC: 0W9M0ZZ Drainage of Male Perineum, Open Approach (ICD-10-PCS; 2024-12-16)
PROC: 05HB33Z Insertion of Infusion Device into Right Basilic Vein, Percutaneous Approach (ICD-10-PCS; principal; 2024-12-17)
PROC: B54MZZA Ultrasonography of Right Upper Extremity Veins, Guidance (ICD-10-PCS; 2024-12-17)
DX: A41.9 Sepsis, unspecified organism (principal); E43 Unspecified severe protein-calorie malnutrition; G92.8 Other toxic encephalopathy; N17.9 Acute kidney failure, unspecified; I42.9 Cardiomyopathy, unspecified; L02.215 Cutaneous abscess of perineum; N13.6 Pyonephrosis; N45.4 Abscess of epididymis or testis; E11.65 Type 2 diabetes mellitus with hyperglycemia; E78.00 Pure hypercholesterolemia, unspecified; E11.22 Type 2 diabetes mellitus with diabetic chronic kidney disease; I25.10 Atherosclerotic heart disease of native coronary artery without angina pectoris; E11.51 Type 2 diabetes mellitus with diabetic peripheral angiopathy without gangrene; N18.9 Chronic kidney disease, unspecified; N45.3 Epididymo-orchitis; D50.9 Iron deficiency anemia, unspecified; K21.9 Gastro-esophageal reflux disease without esophagitis; T40.2X5A Adverse effect of other opioids, initial encounter; Z79.4 Long term (current) use of insulin; Z99.2 Dependence on renal dialysis; Z95.5 Presence of coronary angioplasty implant and graft; Z91.119 Patient's noncompliance with dietary regimen due to unspecified reason; Z89.612 Acquired absence of left leg above knee; Z68.36 Body mass index [BMI] 36.0-36.9, adult; Z87.891 Personal history of nicotine dependence; Z86.73 Personal history of transient ischemic attack (TIA), and cerebral infarction without residual deficits; Z83.3 Family history of diabetes mellitus; Y92.89 Other specified places as the place of occurrence of the external cause
CPT/HCPCS: 36415; 36600; 70450; 70547; 70551; 71045; 74176; 76770; 76870; 80048; 80051; 80053; 80076; 81001; 82010; 82140; 82435; 82570; 82728; 82803; 82947; 82948; 83036; 83540; 83550; 83605; 83615; 83735; 83930; 83935; 84100; 84132; 84145; 84295; 84300; 84443; 84484; 84550; 85018; 85025; 85027; 85651; 86140; 87040; 87070; 87076; 87086; 92522; 92610; 93005; 93306; 93356; 93880; 96374; 99285; A4606; G0378; J0330; J0692; J1100; J1171; J1450; J1644; J1815; J2020; J2185; J2250; J2405; J2470; J2704; J3010; J3373; J3475; J3490; J7070; A4930; J2310

== ENCOUNTER 2025-04-09 14:35 | Emergency (ER) | payer OTHER ==
[~2025-04-09] VITALS: Ht 180.3 cm; Wt 136.1 kg
[~2025-04-09 14:35] MED LIST changes: +ASPI-1443 PO; +CLOP75TA32 PO; -DAPA5TAB PO; -GABA-529 PO; +INSU100I56 SQ; +INSU3INS3 SQ; +LOSA50TA64 PO; +SENN-216 PO; +SITA1TAB6 PO; +TAMS-55 PO
[2025-04-09] MEDS ORDERED: SODIUM BICARB 8.4% 50ML SYRINGE IVP ONE (14:36)
[2025-04-09] MEDS ORDERED: CACL 1GM SYG IVP ONE (14:36)
[2025-04-09 14:39] VITALS: TEMP 99.6
[2025-04-09 15:03] LABS: IMMATURE GRANULOCYTE ABSOLUTE 0.06 K/uL (0-1); NUCLEATED RED BLOOD CELLS 0.0 % (0.0-0.19); PLATELET COUNT (AUTO) 282 K/uL (130-400); RED BLOOD CELL COUNT(AUTO) 5.02 MIL/uL (4.50-6.20); RED CELL DISTRIBUTION WIDTH 14.2 % (11.0-15.5); WHITE BLOOD COUNT (AUTO) 12.1 K/uL (4.8-10.8)
[2025-04-09 15:12] LABS: INR 1.13 (0.85-1.15)
[2025-04-09 15:20] LABS: ASPARTATE AMINOTRANSFERASE 15.0 U/L (10-37); CREATINE KINASE, TOTAL 89.0 U/L (21-232); CREATININE 5.0 mg/dL (0.5-1.3); GLOMERULAR FILTR. RATE CALC 13.0 mL/min (>90); SODIUM SERUM 122.0 mmol/L (136-145); TOTAL PROTEIN, SERUM 7.0 g/dL (6.0-8.3); UREA NITROGEN, BLOOD 69.0 mg/dL (7-18)
--- NOTE | 2025-04-09 15:20 | NUR ---
PT JUST PLACED IN ED BED 16
[2025-04-09 15:23] VITALS: BP 97/55; PULSE 115; RESP 20; O2SAT 98
[2025-04-09 15:33] LABS: GLUCOSE,RANDOM 438.0 mg/dL (70-105)
[2025-04-09 16:11] LABS: APPEARANCE,URINE TURBID (CLEAR); GLUCOSE, URINE (UA) 500 mg/dL (NEGATIVE); LEUKOCYTE ESTERASE ,URINE 500 Leu/uL (NEGATIVE); NITRATE,URINE NEGATIVE (NEGATIVE); OCCULT BLOOD,URINE LARGE (NEGATIVE)
[2025-04-09 16:17] LABS: ADD UA MICROSCOPIC YES
[2025-04-09 16:25] LABS: WBC CLUMP MANY /HPF (0-1)
[2025-04-09] MEDS: 0.9%NACL 1000ML 1,000 ML IV ONE (16:58)
[2025-04-09] MEDS: ZOSYN 3.375GM +NS 50ML IV STA (16:58)
--- NOTE | 2025-04-09 17:02 | NUR ---
AT THIS TIME, I HAD ENTERED THE ROOM TO ADMINISTER MEDICATION AND SAW THE PATIENT WITH THEIR EYES CLOSED AND NO RISE AND FALL OF THE CHEST. NO PULSE ABLE TO BE PALPATED. ASYSTOLE WAS SEEN ON THE MONITOR. AT 1703, ARLETTE MEJÍA WAS PRESSED IN ROOM AND COMPRESSIONS WERE INITIATED. CODE TEAM ARRIVED TO ROOM IN 15 SECONDS. AFTER 20 MINS OF COMPRESSIONS AND MEDICATION INTERVENTION, TIME OF WAS PRONOUNCED BY PHILIP HEARD.
--- NOTE | 2025-04-09 17:03 | NUR ---
REFER TO CODE BLUE SHEET.
--- NOTE | 2025-04-09 17:09 | HMCIMG ---
EXAM: CR Chest, 1 View. CLINICAL HISTORY: fever COMPARISON: None provided. FINDINGS: LUNGS: There is no mass, infiltrate, or acute pulmonary abnormality. Mild left basilar atelectasis and parenchymal scarring. PLEURAL SPACES: No pleural effusion or pneumothorax. MEDIASTINUM: Cardiac size and mediastinal contours within normal limits. BONES: No aggressive appearing osseous lesion seen. IMPRESSION: No acute cardiopulmonary pathology is evident. /[place]
--- NOTE | 2025-04-09 17:12 | EKG ---
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1975 Requested By: LORAINE PALACIOS Order Number: [id number] Reading MD: Allison Barriga Measurements Intervals [place] Rate: 112 P: -4 [place]: 162 QRS: -61 QRSD: 118 T: 71 QT: 360 QTc: 492 Interpretive Statements Sinus tachycardia Right bundle branch block Inferior infarct, old Compared to ECG 12/15/2024 13:43:03 Right bundle-branch block now present Sinus rhythm no longer present Intraventricular conduction delay no longer present Myocardial infarct finding still present Electronically Signed On 04-09-2025 19:39:57 [employer] COORDINATOR by Allison Barriga Please click the below link to view image of tracing.
[2025-04-09] MEDS ORDERED: SODIUM BICARB 50MEQ 50ML VIAL 100 ML ONE (17:19)
--- NOTE | 2025-04-09 18:03 | ERN ---
ED Note History of Present Illness Stated Complaint: HERE DUE TO DISCOLORED URINE, FEVER AND CHILLS Chief Complaint: Urinary Catheter Problems Time Seen by MD: 14:40 Dictation: 50-year-old male presenting to the emergency department by EMS for subjective fevers and chills and concern for urinary tract infection secondary to indwelling Thomas catheter. Patient is 50 years old and past medical history of multiple medical problems including diabetes hypertension coronary artery disease. Patient denies chest pain or shortness of breath but feels weak and reports that he gets frequent infections with the Thomas catheter Allergies: Coded Allergies: morphine (Unverified Allergy, Intermediate, HALLUCINATIONS, 02/13/23) Home Meds Reported Medications Insulin Glargine,Hum.rec.anlog (Lantus Solostar) 100 Unit/Ml (3 Ml) Insuln.pen, 50 UNIT SQ DAILY, SYRINGE 12/15/24 Insulin Lispro (Insulin Lispro Kwikpen U-100) 100 Unit/Ml Insuln.pen, 5 UNIT SQ BIDPC, SYRINGE 12/15/24 Aspirin (Aspirin EC) 81 Mg Tablet.dr, 81 MG PO DAILY, TAB 12/15/24 Sennosides/Docusate Sodium (Colace 2-in-1 Tablet) 8.6 Mg-50 Mg Tablet, 1 EACH PO DAILY, TAB 12/15/24 Losartan Potassium (Losartan Potassium) 50 Mg Tablet, 50 MG PO DAILY, TAB 12/15/24 Clopidogrel Bisulfate (Clopidogrel) 75 Mg Tablet, 75 MG PO DAILY, TAB 12/15/24 Tamsulosin HCl (Flomax) 0.4 Mg Cap.er.24h, 0.4 MG PO DAILY, CAPSULE.DR 12/15/24 Sitagliptin Phos/Metformin HCl (Janumet 50-1,000 mg Tablet) 50 Mg-1,000 Mg Tablet, 1 EACH PO BIDMEALS, TAB 12/15/24 Ferrous Sulfate (Ferrous Sulfate) 325 Mg (65 Mg Iron) Ectab, 1 TAB PO DAILY for 30 Days, #30 TAB 0 Refills 07/27/24 Clotrimazole (Clotrimazole) 1 % Cream..g., 1 APPL TP BID for 7 Days, #15 GM 0 Refills apply to affected area(s) 07/27/24 Atorvastatin Calcium (LIPITOR) 40 Mg Tablet, 40 MG PO HS, TAB 12/29/22 Past Medical History Past Medical History: Diabetes-Type II, High Cholesterol, Heart Disease, Hypertension Additional Past Medical Hx: PAD, SORE ON FOOT, Surgical History: Cholecystectomy, Unknown Surgical History Other: STENTS HEART AND LEG. 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 Social History: Negative, Lives in Long-Term Review of System Dictation Constitutional: Per HPI Eyes: Negative for injury, pain,redness, and discharge ENT: Negative for injury,pain or swelling Cardiovascular: Negative for chest pain, palpitations, and edema Respiratory: Negative for shortness of breath, cough, and wheezing, Abdomen/GI: Negative for abdominal pain, nausea, vomiting, diarrhea, and constipation Back: Negative for injury and pain : Per HPI MS/Extremity: Negative for injury and deformity Skin: Negative for rash, and discoloration Neuro: Per HPI Initial Vital Sign VS Vital Signs Date Time Temp Pulse Resp B/P (MAP) Pulse Ox O2 Delivery O2 Flow Rate FiO2 04/09/25 14:39 99.7 110 18 126/92 97 Room Air 0 04/09/25 15:23 21 Physical Exam Dictation General: awake, alert, no acute distress, low-grade fever, appears chronically ill Head/Face: Normocephalic, atraumatic Eyes: PERRL, EOMI, vision at baseline ENT: oral cavity clear, TMs clear, no signs of infection Neck: Trachea midline, supple, no nuchal rigidity Cardiovascular: Tachycardia normal S1/S2, No MRGs, no JVD Respiratory: CTAB, no respiratory distress, No rales or wheezes Abdomen: Soft, non-tender, non-distended, normal bowel sounds, no guarding or rebound. Skin: Warm, dry, normal turgor, no rash MS/Extremity: Pulses equal, no cyanosis, neurovascular intact, FROM, amputation to right toes, remote amputation to left lower extremity Neuro: COAx4, GCS 15, strength 5/5, CN 2-12 intact, moves all extremities Results (Laboratory/Radiology) Laboratory/Radiology Laboratory Tests Test 04/09/25 14:55 04/09/25 16:00 04/09/25 17:09 White Blood Count 12.1 K/uL (4.8-10.8) H Red Blood Count 5.02 MIL/uL (4.50-6.20) Hemoglobin 12.7 g/dL (14.0-18.0) L Hematocrit 38.0 % (42-54) L Mean Corpuscular Volume 75.7 fL (79-99) L Mean Corpuscular Hemoglobin 25.3 pg (27.0-33.0) L Mean Corpuscular Hemoglobin Concent 33.4 g/dL (32.0-36.0) Red Cell Distribution Width 14.2 % (11.0-15.5) Platelet Count 282 K/uL (130-400) Mean Platelet Volume 10.5 fL (7.5-10.5) Immature Granulocyte % (Auto) 0.5 % (0-1) Neutrophils (%) (Auto) 81.9 % (40.0-77.0) H Lymphocytes (%) (Auto) 10.3 % (21.0-51.0) L Monocytes (%) (Auto) 7.1 % (3.0-13.0) Eosinophils (%) (Auto) 0.0 % (0.0-8.0) Basophils (%) (Auto) 0.2 % (0.0-5.0) Neutrophils # (Auto) 9.9 K/uL (1.8-7.7) H Lymphocytes # (Auto) 1.2 K/uL (1.0-4.8) Monocytes # (Auto) 0.9 K/uL (0.1-1.0) Eosinophils # (Auto) 0.00 K/uL (0.00-0.70) Basophils # (Auto) 0.02 K/uL (0.00-0.20) Absolute Immature Granulocyte (auto 0.06 K/uL (0-1) Nucleated Red Blood Cells 0.0 % (0.0-0.19) Prothrombin Time 11.8 SEC (9.6-11.6) H Prothromb Time International Ratio 1.13 (0.85-1.15) Activated Partial Thromboplast Time 36.8 SEC (26.3-35.5) H Sodium Level 122 mmol/L (136-145) L Potassium Level 3.6 mmol/L (3.5-5.1) Chloride Level 87 mmol/L (101-111) *L Carbon Dioxide Level 21 mmol/L (21-32) Blood Urea Nitrogen 69 mg/dL (7-18) H Creatinine 5.0 mg/dL (0.5-1.3) H Glomerular Filtration Rate Calc 13 mL/min (>90) Random Glucose 438 mg/dL (70-105) *H Lactic Acid Level 1.9 mmol/L (0.8-2.5) Total Calcium 8.2 mg/dL (8.5-10.1) L Total Bilirubin 0.4 mg/dL (0.2-1.0) Direct Bilirubin 0.1 mg/dL (0.0-0.3) Aspartate Amino Transf (AST/SGOT) 15 U/L (10-37) Alanine Aminotransferase (ALT/SGPT) 20 U/L (12-78) Alkaline Phosphatase 193 U/L (50-136) H Total Creatine Kinase 89 U/L (21-232) Troponin I High Sensitivity 35 ng/L (4-75) Total Protein 7.0 g/dL (6.0-8.3) Albumin 1.9 g/dL (3.5-5.0) L Urine Color LIGHT-YELLOW (YELLOW) Urine Appearance TURBID (CLEAR) Urine pH 6.0 (5.0-8.0) Urine Specific [place] 1.012 (1.001-1.031) Urine Protein 200 mg/dL (NEGATIVE) H Urine Glucose (UA) 500 mg/dL (NEGATIVE) H Urine Ketones NEGATIVE mg/dL (NEGATIVE) Urine Occult Blood LARGE (NEGATIVE) H Urine Nitrate NEGATIVE (NEGATIVE) Urine Bilirubin NEGATIVE mg/dL (NEGATIVE) Urine Urobilinogen 0.2 mg/dL (0.2-1.0) Urine Leukocyte Esterase 500 [place]/uL (NEGATIVE) H Urine RBC >100 /HPF (0-1) H Urine WBC TNTC /HPF (0-1) H Urine WBC Clumps (Auto) MANY /HPF (0-1) Urine Renal Epithelial Cells FEW /HPF (None Seen) Urine Bacteria RARE /HPF (None Seen) Whole Blood Glucose 390 MG/DL (70-110) H Labs Reviewed?: Yes EKG Comment: Heart rate 112, sinus tachycardia normal intervals no STEMI or STEMI equivalent X-RAY Comment: X-ray reviewed and interpreted by radiologist as no acute process ED Course ED Course Orders Procedure Category Date Status Time 12 Lead Ekg Tracing- EKG 04/09/25 Complete Technical 14:41 Basic Metabolic Panel LAB 04/09/25 Complete 14:41 Blood Cult RONY 04/09/25 In Process 14:41 Cbc With Differential LAB 04/09/25 Complete 14:41 Hepatic Function Panel LAB 04/09/25 Complete 14:41 Creatine Kinase, Total LAB 04/09/25 Complete 14:41 Lactic Acid LAB 04/09/25 Complete 14:41 Troponin I High LAB 04/09/25 Complete Sensitivity 14:41 Urinalysis Profile LAB 04/09/25 Complete 14:41 Pt And Ptt LAB 04/09/25 Complete 14:41 Chest 1vw RAD 04/09/25 Resulted 14:41 Zosyn 3.375gm+Ns 50ml PHA 04/09/25 Complete (Zosyn 3.375gm+Ns 15:17 0.9%Nacl 1000ml (Ns PHA 04/09/25 Complete 1000ml) 15:30 Culture Urine RONY 04/09/25 In Process 16:18 Insulin Regular, PHA 04/09/25 Complete Human 3ml (Humulin R 16:50 Sodium Bicarb 50meq PHA 04/09/25 Complete 50ml Vial (Sodium Bi 17:19 Current Medications Medications (Trade) Dose Ordered Sig/Gaby Route PRN Reason Start Time Stop Time Status Last Admin Dose Admin Insulin Human Regular (humuLIN R 100 UNIT/ML 3ML) 10 unit ONCE STAT IV 04/09/25 16:50 04/09/25 16:52 DC 04/09/25 17:02 Piperacillin Sod/ Tazobactam Sod (Zosyn 3.375gm+NS 50ml) 3.375 gm ONCE STAT IV 04/09/25 15:17 04/09/25 15:20 DC 04/09/25 16:58 Sodium Bicarbonate 100 ml @ As Directed STK-MED ONCE .ROUTE 04/09/25 17:19 04/09/25 17:19 DC Sodium Chloride 1,000 ml @ 0 mls/hr ONCE ONCE IV 04/09/25 15:30 04/09/25 15:31 DC 04/09/25 16:58 Vital Signs Date Time Temp Pulse Resp B/P (MAP) Pulse Ox O2 Delivery O2 Flow Rate FiO2 04/09/25 15:23 115 20 97/55 98 Room Air* 0 21 04/09/25 14:39 99.7 110 18 126/92 97 Room Air 0 Medical Decision Making MDM MDM: Differential diagnosis: Rationale: Tests considered and ordered secondary to shared decision making include: labs, ECG and radiology Previous outside records reviewed: Old ER visits. Risk of complication and/or morbidity or mortality of patient management: None Medications-Per medication reconciliation Need for hospitalization: Patient does meet criteria for hospitalization. Need for emergency major/minor surgery: No There are no social concerns with this patient. Prescription drug management Prescriptions will include symptomatic care Patient's prior external medical records from other ER visits were reviewed by me as indicated. Prior testing and results from previous visits were reviewed. Prior tests were taken into account with medical decision making and resource utilization, independent historian/historians were used to obtain complete medical history. I independently interpreted the test that were performed, results were reviewed by me and considered findings on radiology if ordered. Medical management and examination interpretation discussions were had by me with other qualified healthcare professionals as indicated for the patient's care. 50-year-old male with UTI sepsis initial evaluation revealed borderline tachycardia with hyper glycemia normal CO2, and stable potassium. I initially ordered patient IV fluids and broad-spectrum antibiotics, patient was receiving IV fluid bolus with normal saline and Zosyn antibiotic for concern of bacteremia, nursing staff also change Thomas catheter, patient was seen at bedside in no acute distress with stable vital signs shortly after Thomas catheter change, and initial consultation was given for inpatient admission. Nursing staff walked into the room sometime later at 1703 and found the patient in cardiac arrest with no respiration effort and no cardiac activity code blue button was immediately called and ACLS protocol was initiated, I was in the department and walked over patient was on cardiac pads patient was quickly intubated and given multiple rounds of ACLS medication including epi bicarb calcium additional IV fluid bolus and amiodarone however patient was asystole the entire time and the resuscitation was deemed futile after 25 minutes of ACLS, patient was intubated and respiratory therapy also suctioned tube cleared any obstruction and provided bag-valve ventilations with high-flow supplemental O2. Family was updated of cardiac arrest and arrived shortly in the emergency department to be updated. Procedure Intubation Method: orotracheal Tube Size (cm): 7.5 Breath Sounds after Intubation: equal Intubation Complications: no complications Critical Care Note Comment(s) Total critical care time was 33 minutes. Excluding time for procedures. Management of critically ill patient with concern for acute decompensation. Management included interpretation of laboratory values and imaging, hemodynamics DX & DISP Disposition: Departure Impression: Primary Impression: UTI (urinary tract infection) Additional Impressions: Sepsis, Cardiopulmonary arrest Condition: Stable Referrals: TORITO DAVIS MD (PCP) LORAINE PALACIOS MD Apr 09, 2025 18:03
--- NOTE | 2025-04-09 19:13 | NUR ---
KIKO WAS APPROACHED AND DECIDED PT TO GO TO [facility] IN [place] AND THEY OPTED OUT OF HAVING OR REQUESTING AN AUTOPSY TO BE DONE.
--- NOTE | 2025-04-09 20:02 | PN ---
[facility] PROGRESS NOTE Brief Hospitalist Note: I was paged by answering service to admit patient at 1656 pm today ( 04/09/2025). Briefly after getting report from ED physician at 17:00; pt had cardiopulmonary arrest at 17:03 while under ER care of Dr. Tabor. Cardiopulmonary arrest happened before I could see the patient and prior to my arrival in the Emergency room. Pt underwent full ACLS protocol by ED physician and while under the care of the ER service. Since patient ; I was unable to see the patient and I was not involved with the care of this patient in regards to patient history, diagnosis, evaluation, management, and treatment. Dr. Tabor informed me that admission to hospitalist service was canceled since patient while under ER care. FLIP Ocampo MD, MD Apr 09, 2025 20:02
== END 2025-04-09 21:53 ==
LOC: EDH 14:35
DX: A41.9 Sepsis, unspecified organism (principal); I46.9 Cardiac arrest, cause unspecified; N39.0 Urinary tract infection, site not specified; E11.9 Type 2 diabetes mellitus without complications; E78.00 Pure hypercholesterolemia, unspecified; I11.9 Hypertensive heart disease without heart failure; I21.9 Acute myocardial infarction, unspecified; Z79.02 Long term (current) use of antithrombotics/antiplatelets; Z79.4 Long term (current) use of insulin; Z79.82 Long term (current) use of aspirin; Z79.899 Other long term (current) drug therapy; Z88.5 Allergy status to narcotic agent; Z89.612 Acquired absence of left leg above knee; Z90.49 Acquired absence of other specified parts of digestive tract; Z95.5 Presence of coronary angioplasty implant and graft
CPT/HCPCS: 99291; 92950; 31500; 96365; 96366; 71045; 96375; 82550; 80076; 84484; 80048; 85025; 85610; 85730; 87040 ×2; 87086 ×2; 87186 ×3; 82948; 83605; 81001; 36415; 93005; J1815; J7030; J3490 ×3; J0169; J2543; J0282